=== PATIENT | male | born 1955 | race Caucasian/White ===

== ENCOUNTER 2023-04-19 10:07 | Outpatient (OUT) | payer MEDICARE, SELFPAY ==
[2023-04-19 10:33] LABS: Basophils Absolute Auto 0.1 10^3/uL (0.0-0.1); Basophils Percent Auto 0.7 % (0.2-2.0); Eosinophils Absolute Auto 0.2 10^3/uL (0.0-0.7); Eosinophils Percent Auto 3.2 % (0.9-7.0); Hematocrit 45.7 % (42.0-54.0); Hemoglobin 14.9 g/dL (14.0-18.0); Immature Granulocytes Abs Auto 0.03 10^3/uL (0.00-0.03); Immature Granulocytes Pct Auto 0.4 % (0.0-0.5); Lymphocytes Absolute Auto 1.4 10^3/uL (1.2-3.8); Lymphocytes Percent Auto 18.9 % (20.5-60.0); Mean Corpuscular HGB Conc 32.6 g/dL (29.9-35.2); Mean Platelet Volume 11.8 fL (9.5-13.5); Monocytes Percent Auto 12.9 % (1.7-12.0); Neutrophils Absolute Auto 4.8 10^3/uL (1.4-6.5); Neutrophils Percent Auto 63.9 % (43.0-75.0); Platelet Count 220 10^3/uL (150-450); Red Blood Count 4.81 10^6/uL (4.70-6.10); Red Cell Distribution Width 12.7 % (11.0-15.0); White Blood Count 7.5 10^3/uL (4.0-11.0)
[2023-04-19 12:34] LABS: Alanine Aminotransferase 66 U/L (16-63); Albumin Level 3.7 g/dL (3.4-5.0); Alkaline Phosphatase 65 U/L (46-116); Anion Gap 10.9; Aspartate Amino Transferase 44 U/L (15-37); BUN Creatinine Ratio 15.2; Bilirubin Total 0.5 mg/dL (0.2-1.0); Calcium 8.8 mg/dL (8.5-10.1); Carbon Dioxide 28.3 mmol/L (21.0-32.0); Chloride 100 mmol/L (98-107); Chol HDL Ratio 2.3; Cholesterol 199 mg/dL (<=200); Estimated GFR (African America >60 (>=60); Estimated GFR (Non-African Ame 57 (>=60); Globulin 3.6 g/dL; Glucose 96 mg/dL (74-106); HDL Cholesterol 86 mg/dL (40-60); Potassium 5.2 mmol/L (3.5-5.1); Sodium 134 mmol/L (136-145); Thyroid Stimulating Hormone 1.227 uIU/mL (0.358-3.740); Total Protein 7.3 g/dL (6.4-8.2); Triglycerides 58 mg/dL (<=150); VLDL CHOLESTEROL 11.6 mg/dL
[2023-04-19 12:35] LABS: Prostate Specific Antigen Scrn 2.73 ng/mL (<=4.00)
== END 2023-04-19 10:08 | disposition home or self-care (01) ==
LOC: LAB 10:15
PROVIDERS: PCP Family Medicine; Visit Provider Family Medicine
DX: I10 Essential (primary) hypertension (principal); Z12.5 Encounter for screening for malignant neoplasm of prostate; R53.83 Other fatigue
CPT/HCPCS: 36415; 80053; 80061; 84443; 85025; G0103

== ENCOUNTER 2023-04-23 08:33 | Outpatient (OUT) | payer MEDICARE, SELFPAY ==
--- NOTE | 2023-04-23 08:37 | CT_ITS ---
[address] [address] Patient Name: ROSALIO JARQUIN MRN: [id number] date: 1955 Sex: M Assigned Patient Location: CT Current Patient Location: Accession/Order Number: [id number] Exam Date: 04/23/2023 08:42 Report Date: 04/24/2023 09:51 At the request of: ELAINE MEJIA Procedure: CT lung screening low-dose EXAMINATION: CT lung screening low-dose HISTORY: Nicotine Dependence F17.210 COMPARISON: No relevant comparison available. TECHNIQUE: Axial, Coronal, and Sagittal images were created without the administration of IV contrast material. Dose reduction techniques were achieved by using automated exposure control and/or adjustment of mA and/or kV according to patient size and/or use of iterative reconstruction technique. FINDINGS: LUNGS: A few calcified granulomas. No suspicious nodules or acute infiltrates. PLEURA: No mass, effusion, or pneumothorax. VASCULATURE: No abnormality. MARINA: Calcified lymph nodes compatible with chronic granulomatous disease MEDIASTINUM: No mass or pathologic adenopathy. CARDIAC: No enlargement, pericardial thickening, or significant calcification. AORTA: No aneurysm or dissection. CHEST WALL: No mass or axillary adenopathy BONES: No bone lesion or fracture. LIMITED ABDOMEN: No suspicious findings. Limited images of the upper abdomen. OTHER: Negative. CT/CT lung screening low-dose IMPRESSION: 1. Lung-RADS Category 1 Negative. No nodules and definitely benign nodules. Continue annual screening with LDCT in 12 months. Electronically authenticated by: SIMRAN MATIAS Date: 04/24/2023 09:51
== END 2023-04-23 08:34 | disposition home or self-care (01) ==
LOC: CT 08:33
PROVIDERS: PCP Family Medicine; Visit Provider Family Medicine
DX: F17.210 Nicotine dependence, cigarettes, uncomplicated (principal)
CPT/HCPCS: 71271

== ENCOUNTER 2023-05-28 13:48 | Emergency (ER) | payer MEDICARE, SELFPAY ==
[2023-05-28 13:53] VITALS: BP 148/70; PULSE 60; RESP 16; TEMP 36.6; O2SAT 98; BMI 24.4
--- NOTE | 2023-05-28 13:59 | CT_ITS ---
The [address] [address] Patient Name: ROSALIO JARQUIN MRN: [id number] date: 1955 Sex: M Assigned Patient Location: ER Current Patient Location: ER Accession/Order Number: [id number] Exam Date: 05/28/2023 14:09 Report Date: 05/28/2023 14:27 At the request of: CHASIDY ZAZUETA Procedure: CT head/brain wo con EXAMINATION: CT head/brain wo con 05/28/2023 2:09 PM EST HISTORY: Fall, head injury COMPARISON: None. TECHNIQUE: Using multidetector thin collimation helical acquisition technique, axial, coronal and sagittal CT images from the skull base to the vertex were obtained without intravenous contrast. Dose reduction techniques were achieved by using automated exposure control and/or adjustment of mA and/or kV according to patient size and/or use of iterative reconstruction technique. FINDINGS: No intracranial hemorrhage, mass effect, or midline shift. The ventricles are proportionate to the cerebral sulci. The mansfield to white matter differentiation of the cerebral hemispheres is preserved. The basal cisterns are patent. The visualized paranasal sinuses are clear. The mastoid air cells are clear. CT/CT head/brain wo con IMPRESSION: No acute intracranial pathology. Electronically authenticated by: FER MARIE Date: 05/28/2023 14:27
--- NOTE | 2023-05-28 13:59 | CT_ITS ---
The [address] [address] Patient Name: ROSALIO JARQUIN MRN: [id number] date: 1955 Sex: M Assigned Patient Location: ER Current Patient Location: Accession/Order Number: [id number] Exam Date: 05/28/2023 14:09 Report Date: 05/28/2023 16:02 At the request of: CHASIDY ZAZUETA Procedure: CT cervical spine wo con CT CERVICAL SPINE WITHOUT CONTRAST, 05/28/2023. HISTORY: Fall. Neck injury. COMPARISON: None. TECHNIQUE: Noncontrast axial CT images obtained through the cervical spine. Reconstructions were obtained in the sagittal and coronal planes. Dose reduction techniques were achieved by using automated exposure control and/or adjustment of mA and/or kV according to patient size and/or use of iterative reconstruction technique. FINDINGS: Alignment normal. Odontoid process is intact. Facet joints are intact. Vertebral body heights are normal. No acute cervical spine fracture. Severe multilevel degenerative disc disease. No paraspinal soft tissue swelling. CT/CT cervical spine wo con IMPRESSION: No acute cervical spine fracture or traumatic subluxation. Electronically authenticated by: GISSEL MELVIN Date: 05/28/2023 16:02
--- NOTE | 2023-05-28 15:07 | ED.HEATRA1 ---
HPI - Head Injury General Chief complaint: Head Injury Stated complaint: HEAD INJURY Time Seen by Provider: 05/28/23 13:58 Source: patient and family Mode of arrival: walk-in Limitations: no limitations History of Present Illness HPI Narrative: Patient is a very pleasant 68-year-old male who presents to the emergency department with his for the evaluation of a head injury with laceration. Patient states he slipped on ice on his patio and fell backward hitting the back of his head on the ground. He had no loss of consciousness, he reports some stiffness to the sides of the neck but has no posterior cervical or thoracic pain. He is ambulatory, no extremity injuries. His tetanus is up-to-date. Bleeding has been well-controlled. He is on no blood thinners. He denies visual changes, peripheral paresthesias, vomiting. Related Data Previous Rx's Medication Instructions Recorded methocarbamol 750 mg tablet 750 mg PO TID PRN pain #20 tabs 05/28/23 Allergies Allergy/AdvReac Type Severity Reaction Status Date / Time Unable to Assess Allergy Verified 05/28/23 13:57 Review of Systems ROS Constitutional Denies: fever or chills Ears, nose, mouth, and throat Denies: throat pain Cardiovascular Denies: chest pain Respiratory Denies: shortness of breath or cough Gastrointestinal Denies: nausea or vomiting Musculoskeletal Reports: neck pain; Denies: back pain Integumentary/Breast Denies: rash Neurological Denies: headache or numbness in extremities Hematologic/Lymphatic Denies: easy bruising or easy bleeding PFSH PFSH Social History Smoking status: Never smoker Exam Narrative Exam Narrative: Gen.: Awake, alert, in no distress Head: Normocephalic, 5 cm laceration to the back of the scalp, subcutaneous tissue exposed although the laceration is well aligned, there is no muscle or bony exposure. No active bleeding. No hematomas. No Jimenez sign or raccoon eyes ENT: Moist mucous membranes; no dental injury; no bony point tenderness of the posterior cervical spine Respiratory: No respiratory distress Extremities: Moves extremities equally, no injuries noted Psych: Normal mood and affect Neuro: No focal neuro deficit Skin: Warm, dry Constitutional Vital Signs, click to edit/add: Last Vital Signs Temp 97.9 F 05/28/23 13:53 Pulse 60 05/28/23 13:53 Resp 16 05/28/23 13:53 BP 148/70 H 05/28/23 13:53 Pulse Ox 98 05/28/23 13:53 O2 Del Method Room Air 05/28/23 13:53 Course Vital Signs Vital signs: Vital Signs Temperature 97.9 F 05/28/23 13:53 Pulse Rate 60 05/28/23 13:53 Respiratory Rate 16 05/28/23 13:53 Blood Pressure 148/70 H 05/28/23 13:53 Pulse Oximetry 98 05/28/23 13:53 Oxygen Delivery Method Room Air 05/28/23 13:53 Temperature 97.9 F 05/28/23 13:53 Pulse Rate 60 05/28/23 13:53 Respiratory Rate 16 05/28/23 13:53 Blood Pressure 148/70 H 05/28/23 13:53 Pulse Oximetry 98 05/28/23 13:53 Oxygen Delivery Method Room Air 05/28/23 13:53 MDM - Head Injury MDM Narrative Medical decision making narrative: CTs of the head and C-spine are unremarkable, laceration repaired without difficulty. Robaxin given for neck stiffness for home, he appears well-hydrated and nontoxic with a normal neuro exam. Follow-up with primary care provider and return to the emergency department if symptoms change or worsen. The laceration was anesthetized with topical LET and 7 michelle were placed with excellent alignment of the laceration. No active bleeding, patient tolerated this well. Dressed with bacitracin. Patient encouraged to follow-up with primary care in 10 to 12 days for staple removal. Wound care discussed at bedside. Medical Records Attestation: I reviewed the patient's medical records. Imaging Data CT scan - head: Attestation: I have reviewed the pertinent imaging results. CT cervical: Attestation: I have reviewed the pertinent imaging results. Discharge Plan Discharge Chief Complaint: Head Injury Clinical Impression: Closed head injury, Cervical sprain, Laceration of scalp Patient Disposition: Home, Self-Care Time of Disposition Decision: 15:08 Condition: Good Prescriptions / Home Meds: New methocarbamol 750 mg tablet 750 mg PO TID PRN (Reason: pain) Qty: 20 0RF Instructions: Head Injury (ED), Staple Care (ED), Head Laceration (ED) Additional Instructions: Michelle removed in 10-12 days with your doctor Stand Alone Forms: Portal Instructions Referrals: Adriana Downs MD [Primary Care Provider] - 1 week
== END 2023-05-28 15:30 | disposition home or self-care (01) ==
PROVIDERS: Emergency Provider Emergency Medicine; PCP Family Medicine
DX: S01.01XA Laceration without foreign body of scalp, initial encounter (principal); S09.8XXA Other specified injuries of head, initial encounter; S13.9XXA Sprain of joints and ligaments of unspecified parts of neck, initial encounter; W00.0XXA Fall on same level due to ice and snow, initial encounter
CPT/HCPCS: 12002; 70450; 72125; 99284

== ENCOUNTER 2023-09-19 09:58 | Outpatient (OUT) | payer MEDICARE, SELFPAY ==
--- OUTSIDE RECORDS SUMMARY | 2023-09-19 10:12 | XMS_ITS | CCD ---
Author Organization [facility] Care Team Providers Care [employer] Name Role Phone Adriana Mejia Primary Care Provider TOMI ESTRELLA Attending Unavailable ADRIANA MEJIA Primary Care Unavailable ADRIANA MEJIA Primary Care Physician Esther Padilla Unavailable Unavailable CYNTHIA, DR LENA Campbell Attending Unavailable CYNTHIA, DR LENA Campbell Consulting Unavailable MEJIA, DR ADRIANA Hammond Primary Care Unavailable CYNTHIA, DR LENA Campbell Admitting Unavailable JACKIE, DR ADRIANA Hammond Attending Unavailable JACKIE, DR ADRIANA Hammond Primary Care Unavailable JACKIE, DR ADRIANA Hammond Admitting Unavailable POLLY, DR SIMRAN Campbell Consulting Unavailable MEJIA, DR ADRIANA Hammond Consulting Unavailable Adriana Mejia Unavailable Allergies Allergy Classification Reported Allergen(s) Allergy Type Date of Onset Reaction(s) Facility (3 sources) patient allergy list reviewed by nurse or physicia Propensity to adverse reactions 9 Comment:Done nexTune Other (3 sources) Allergies Reconciled Propensity to adverse reactions Unknown nexTune Other Medications Current Medications Medication Drug Class(es) Dates Sig (Normalized) Sig (Original) acetaminophen 325 mg oral tablet (2 sources) Start: 08-01-2020 take 2 tablets by mouth every six hours as needed for pain acetaminophen (TYLENOL) 325 MG tablet Take 2 tablets by mouth every 6 hours as needed for Pain 120 tablet 0 08/01/2020 Active Start: 08-01-2020 acetaminophen (TYLENOL) tablet 1,000 mg acetaminophen 325 mg / HYDROcodone bitartrate 5 mg oral tablet (3 sources) Opioid Agonist Start: 11-03-2018 Trinidad 325 mg-5 mg oral tablet 1 tab(s), Oral, q4hr for pain, 12 tab(s), Refill(s) 0 Start Date: 11/03/18 Status: Ordered ciprofloxacin 3 mg/ml / dexamethasone 1 mg/ml otic suspension (1 source) Corticosteroid, Quinolone Antimicrobial Start: 01-06-2022 End: 01-13-2022 ciprofloxacin-dexa methasone 0.3%-0.1% Otic Susp 4 drop(s), Ear-Right, BID for 7 day(s), 10 mL, Refill(s) 0 Start Date: 01/06/22 Stop Date: 01/13/22 Status: Ordered escitalopram 10 mg oral tablet (3 sources) Serotonin Reuptake Inhibitor take 1 tablet by mouth once daily Escitalopram Oxalate 10 MG TAKE 1 TABLET BY MOUTH DAILY for 90 Active ibuprofen 600 mg oral tablet (1 source) Nonsteroidal Anti-inflammatory Drug Start: 08-01-2020 take 1 tablet by mouth every six hours as needed for pain ibuprofen (IBU) 600 MG tablet Take 1 tablet by mouth every 6 hours as needed for Pain 120 tablet 0 08/01/2020 Active Start: 08-01-2020 take 1 tablet by musa th every six hours as needed for pain ibuprofen (IBU) 600 MG tablet Take 1 tablet by mouth every 6 hours as needed for Pain 120 tablet 0 08/01/2020 Active lamoTRIgine 25 mg oral tablet (3 sources) Mood Stabilizer, Anti-epileptic Agent Start: 01-25-2022 take 1 tablet by mouth at bedtime lamoTRIgine 25MG lamoTRIgine 25MG, 1 (one) Tablet at bedtime # 90, 01/25/2022, Ref. x1. Active Oral at bedtime for 0 *Pick strength-form from [employer] for eRX* Dec, Active take 1 tablet by mouth at bedtim e lamoTRIgine 25 MG TAKE 1 TABLET BY MOUTH AT BEDTIME for 90 Active loratadine 10 mg oral tablet (3 sources) Start: 10-31-2020 take 1 tablet by mouth once daily Loratadine 10MG Loratadine 10MG, 1 (one) Tablet daily # 30, 10/31/2020, Ref. x2. Active Oral daily for 30 *Pick strength-form from [employer] for eRX* October, Active losartan potassium 50 mg oral tablet (3 sources) Angiotensin 2 Receptor Brandi take 1 tablet by mouth every twenty-four hours Losartan Potassium 50 MG 1 tablet Orally Once a day for 90 days Active meloxicam 15 mg oral tablet (3 sources) Nonsteroidal Anti-inflammatory Drug Start: 12-13-2021 take 1 tablet by mouth once daily Meloxicam 15 MG Meloxicam 15MG, 1 (one) Tablet daily # 90, 12/13/2021, Ref. x2. Active Oral daily for 0 15 Nov, 2021 Active Problems Active Problems Problem Classification Problem Date Documented Date Episodic/Chronic Essential hypertension (4 sources) Essential hypertension; Translations: [Essential (primary) hypertension] Chronic Malaise and fatigue (1 source) Other fatigue Episodic Miscellaneous mental health disorders (3 sources) Transient insomnia; Translations: [Adjustment insomnia] Episodic Osteoarthritis (3 sources) Degenerative joint disease involving multiple joints; Translations: [Polyosteoarthritis, unspecified] Chronic Other aftercare (1 source) Encounter for removal of sutures Episodic Other ear and sense organ disorders (1 source) Otitis externa; Translations: [Unspecified otitis externa, unspecified ear] Onset: 01-06-2022 Chronic Other injuries and conditions due to external causes (1 source) Closed injury of head; Translations: [Closed head injury, initial encounter] Episodic Other injuries and conditions due to external causes (4 sources) Foreign body in right ear, initial encounter; Translations: [FOREIGN BODY RT EAR INITIAL ENCNTR] Onset: 01-06-2022 Episodic Other screening for suspected conditions (not mental disorders or infectious disease) (1 source) Encounter for screening for malignant neoplasm of prostate Episodic Residual codes; unclassified (4 sources) Obstructive sleep apnea syndrome; Translations: [Obstructive sleep apnea (adult) (pediatric)] Onset: 10-09-2021 Chronic Substance-related disorders (11 sources) Smoker; Translations: [Nicotine dependence, cigarettes, uncomplicated] Onset: 01-13-2022 11-03-2018 Chronic Comment on above: Added secondary to d ocumentation in Social History. Past or Other Problems Problem Classification Problem Date Documented Da te Episodic/Chronic Mood disorders (3 sources) Mood disorders; Translations: [Depression, controlled] Results Test Name Value Interpretation Reference Range Facility CT LUNG CANCER SCREENINGon 0 01-14-2022 CT LUNG CANCER SCREENING EXAMINATION: CT LUNG CANCER SCREENING HISTORY: Tobacco dependence caused by cigarettes COMPARISON: CT lung cancer screening 11/15/2020, 02/03/2019 TECHNIQUE: Axial, Coronal, and Sagittal images were created without the administration of IV contrast material. Dose reduction techniques were achieved by using automated exposure control and/or adjustment of mA and/or kV according to patient size and/or use of iterative reconstruction technique. FINDINGS: LUNGS: Stable appearance of a few tiny punctate nodules scattered within the lungs. No new or suspicious nodules. No acute infiltrates. PLEURA: No mass, effusion, or pneumothorax. VASCULATURE: No abnormality. MARINA: A few small calcified lymph nodes consistent with chronic granulomatous disease. MEDIASTINUM: No mass or pathologic adenopathy. CARDIAC: No enlargement, pericardial thickening, or significant calcification. AORTA: No aneurysm or dissection. CHEST WALL: No mass or axillary adenopathy BONES: No bone lesion or fracture. LIMITED ABDOMEN: No suspicious findings. Limited images of the upper abdomen. OTHER: Negative. IMPRESSION: 1. LUNG SCREENING: Lung-RADS Category 2- Benign Appearance or Behavior. Nodules with a very low likelihood of becoming a clinically active cancer due to size or lack of growth. 2. Continue annual screening with LDCT in 12 months. Electronically authenticated by: SIMRAN MATIAS Date: 2022-01-14 09:21 Normal [facility] Coding Summary.on 01-12-2022 Coding Summary. CD:[id number] G h0bWw+PGhlYWQ+ZT5BUCW yK54liSOpqS5XQ6hHVI4J ADWIQDULLN3DWZ1krAQ1M UakR1AopqZn UemxkQFwNO28DTp6IYZ8s TjgNUjqyT6trQXwE1w2If RgXO71lD30GTorCBEqZiD 3LjZpbjsgbWFy X1jgShDkrNPhVze+PHRhY mxlIHdpZHRoPScxMDAlJy TzdRpxXT0vZt0vBOKnRAC vbGxhcHNlOiBj a4lkZPXsIWapDI0ycNqaO 8LzeOA8YAWxg7f5Ef76oG I+PXAnSXQ6cGlrGGumg13 9SuEoh1dcQBE6 eBJgKTqbUXR9B95iw5E0C UXcSXCmVYN5wVE5cW5zbD pxbkrwN4OupPVuFiC1JJT 6sHXhcJ0uzWjo qmejvO5dMbe+L38PXA5EG WJNXK3HWai5L8AhXlpqtJ I+ES65GCIbCC26tFNgmBS de8vzeDz6DyRg MGZiSPC5kJpcOXyys6FxN KImE34pzSIow1P5CIBynD tacQXaWjDcwHR2rE4cVOj jwkldn4mvvzbd Ouvmb5xbim40lW40O96kR GufXQOoXBN6BWYcHJIvlE krlo6mvR4lYt2+KLhpv9e lf7volPs6GkQt MNXlouNdvDkvVFG3h5PnK o13D1RcmWjlb5NfAqa2eq 73jMSru9X8cDQ2WVkzHAR oyU7dIClfFkK9 DXIbHqPdlK82vCBeIGsdW z1hkXydrRuqTO2lXJCtsw bfRWZdnP0bPARfpAIjnBh mWV3lUINrqhct c613LiYcLRB0ADUpnXJoT 0KfdS1mXoTjWWKjKDUdV8 WnhJBaLKiwH381OTbgGfA 6KARyxqUvE1Nz EHXauSjoXmF9d3J2Hm3Hb 4LnqsdvLKW2EHfgHRW1Op E7IfYrGqS9L4FrZlw1CND bdJxoMS3dG4Cb BTCvqjojlbhrvRM2BIDsX AAyyB98cSDzJTebAk9lw8 U4t002QDXxWVCxhT97Pg7 udDogMTBwdCBU cG5ntpbey6thhcfqAwVcS ZWfAQw5VPb9KUMcoNfrMg WtALY1FiX8BRP8iLAbhL4 bgNkjoyhoqU1v Oyc+M88wxZ9rEQR3EIC6n ymqOXLnvsDyCL93AU41J4 RyPjwvdGFibGU+PGRpdiB rwAgqKJ5iFkWy n3ypc3UrOEfyG6CuCIBbM PfhDuv5JKIzQEE0dLV7fD 7dSAKoXIbvc5G9wLA4D4Q ukfEadm7yh8cf OUQcEJhrJ20uwILlc7D9K PHbxLB4QARsdRjhNfBpdX 93Oyc+XSKznXyih1XfZxn ed2lwg1iqrPr8 MtKmQOGcmpAnfMfyRIA7i 0NjBg96J84hHEtiTINqOB GkBENrODOuuApoax7zdU7 wIi8+PGNvbCB3 vMT8bN5zUYYjCfK5EZpaC 461QzDjmPFmEeyem6zuw5 wjrIm2KyNgJPAnebBgyAf oOWG3q0FzCe02 O79gGUkwLUPrBPIfGEPuR VLkwKrcya6pnD4rJe4+PC 0yr4xmwj68qT75wUE+PHR oKLQ4iSymUKkw JHYkkO4yFGebZhX0PNPoJ vHesX92dSJzVUlwUs8czU lroPkgIA9dPLIaugoig33 1TqUon5oxZPYc kKNaKCwdBWV9T27xu7N0P VVwDSZqIBA8jJH4sX2oqL lnbjogbGVmdDsgdmVydGl mSEduSErnH882 IHRvcDsnPlBhdGllbnQgT cItVAe2J8HoOqx0UNClaP moRH8tfOXwVQpkYa4ynOs mhCqgFK7zJRQy xpfoi961RaIly2tqOBKpw IQjXCllXOG0X69ig2H6MB TaANCdPXQ6wDV6pK4woUi nbjogbGVmdDsg bcWliZpmLCfxRCdnV371S HRvcDsnPkJpcnRoIERhdG S7JZ82ND06gUQma3Q1wQS 3E6YuZJWmivrp begkiBQ5ACAwKLXxjL35C w6sxRjlPx0hUDZiOXZ1MO CxvLXxB4QmeB2pNmGqWSA lPEUzV5BggJPo JQunG018MXlcWcE0XPEtr iZpY9AmOLWidXsyDoX7s7 A2Mx0XX9T4KX19RA54lZB nz1A2sYR6O9Qb QHKffwrqsmrokIH2ONQwP XPxsT60Hf8tzBzxIv8bFA DiIER2KQRysJUuX5OcqW7 yOiAjMDAwMDAw P1BqbDFhCJdiB622KYakB yG5XUJsnxYbJ3RhNACywU laMgN0p4S2Xo7XEGy1GX3 6HJ51wIKoe1P7 lPB5F7FuSZSazrcztwrpj NH7WNRwRGKfsS13Gh9vzK tzXp1lHCHfLMN9NSZwyWD rR0SxmG5sBkPa CTRqPUKxE0PhbWMfFFpxZ 500UVqaIiU8SGVcjhBaY6 VeJQCnzHbyYyY0n5Q8Yy8 URMNuWE69XEF9 tFV7JW09RG94G3JhKwvcz GFibGU+PHRhYmxlIHdpZH RoPScxMDAlJyBzdHlsZT0 tFn4wOBQcQSTx qLrkoAIrRzOlm2muIZKqV CkpNQ1piHeuE9BzhQY4NR Vem1j2Oy49L69bX8AwiRO +YEVvsWK4gLD6 dI1gLlJqYzM3LWsjE815E iAloJQtPoczq1bao8qnqM e9ZxN9WVTzqqNguGlrLAZ 0s1LvUz55V27u IHdpZHRoPSIxNSUiIHZhb Airbw2tyF7gYm1+PGNvbC M0uIH1qX5dPtTwCvH8LDr bN361MxNcoTFz Pbpqz5epj1oifDm3UdPnN ALtffIvjYgtGDF0z8XjEp 55L7TmtHlda1FbDsx6sw6 8bQFaf8W1zPA0 J5YxJJRjgfvowVZkhEybJ S1pMJWuzjvgQWJmiX0pTP ByK8l2LgBdTbQ7KVbtI0A qcjL2HUSyoXEd QThyVXS3G40xs0Y6IFBnE IAuQEJ8pFT1gL4luUwkix ogbGVmdDsgdmVydGljYWw gTThbD903ZVAf sPbcOFWqeI7xJRFirZObn QhcQH2jMKIbdvmbMbVOWh TVAkSLRMCPE0yXUnKOVG5 1YH99pNRsp1Y7 nTD0X8XtDQOellpptszii YG9GIOzZEPuhN40mKToWH ugTc5bs9F2g756IRDpJUZ edV63Hp5wlZvr DVLhaLWZwF7ptjibl9cnl exhKtHvMJQoERn3UEv8UT BtqCjbZyKeHYD2PwO9VRZ 3dRIfyY3edJvw labmqL3vVli+MDkvMDMvM Yc4YpvblAJ+LJAtSOM4uF usKKbkKYRulB6zRCLxM9v 7BcXkYoF8CThl H9IuLJCmmfffAs05qI8jV lZsCnX8BJxiQ4RmfsK8VE OsrBYiFKpuZWH7M22js4E 5PRXoXMOcKCR6 vGU8pT2kqYtgabqhsKVpg DsgdmVydGljYWwtYWxpZ2 30YUUosVdbHiK1CRvrUZH zND30YU70sZVz r2V4dLK1N7KfNWNdbtzxv cvolSG4EJGuSIYauW04vN JeCDgqLg1cq8P5h696VED gRZPaxU63Ci6g bFluKOSxoRZOrR6xhopie 9ikaziuIpEfJXDbOOk6AA t8SOLpqJcdCxPxONB5DyB 3FML8tSEzxZ9d hGagiljpbE7hEhe+TWFsZ TwvdGQ+JYJhOTT3qIniEN vkUNXzsD8aXPJvH8e1IxS kIhR1THikN9Ox BAEyksebJz17cL9rBaKyX xQ0FZgqC2UhjoA5IFCswS ZiMZfvCRZ7Y96cd8I9DRR fNVQsEDK6uYI8 kA8ysDgmvybqnZEmzWwki sWijHzqSNwzPLhpM764NU HokAvwFq34iMEofZxzmcI 0Y1IwZcpqgSX+ EA24ILLcQK02yHGgdHNov 7tqoAf9JcDeYSNzNKM6jW rrSEqys7VhLPYdK18iaQS zb7J0NCRzoKck qMQeTsDioLE0uV5cMGzfj bmrd1wucpjaNrixz7baqx 27uI31G05lNEhnNXJhBCA zMCUiIHZhbGln zh9siR5nCf8+VFMgeEO7c RY0hG2nKqYaBzB1GWosY1 66RmItyKVsYlgpj4oub9c lwCf7RdXzKAXy utOxeClzCDB8n4YtEp35W 29sIHdpZHRoPSIyMCUiIH AecJttvw2miM6gDd6+PC9 ao6kdfc30uJ50 dHI+APKqTVW4sRvoXHxdD ZPdhW5vVUbkKpL7WPAfJq FueG26fHLfWGzuAb3xnZi vxHmcDD6eUBAn hxjqa298NzCxs4ynRKTcq TNsDDtnJGS2B35yn0B0WC HcTNJjWOA7rBQ1iC1rwYy nbjogbGVmdDsg qyIfgUkeVPkdHSzwL008I SKjrDjjKjPdmAJaP2vbdg LSNB1xUispeGG+PHRkIHN 0eWxlPSdwYWRk rM4dUUXqM0m9TtLdWaE0F PztW0YjjdV9FAAzaZPmJY QajHBKcX8mndibg2hftza gIzAwMDAwMDt0 MKg6GKKqgLvnOiGcYUO7B fY2GXW9nLLguU4brYpzrf tgwN8dTwr+RklOOjwvdGQ +JMVlCTZ3hQkf BAptSPUreG4dKCFwL9i9F nEyKoK2MOxjN4JgucD3RJ UeiRWaDZBibEXJlN0unqv vk9dpndxsLlUr FSTvKGm2ETy6XEBuyJcwD sJlUXO6SkW1LEA6nEMnrL 6rnOsyohudjH6vYmk+TVJ OOjwvdGQ+PHRk CUZ1gDbfJZomBDHcoJ1uC UInJ4h6FxGyYtW6ECwuX9 XddsY7DDGsdUBvYKNopZT KbZ9cwtcnp2nx zcupKxZzKQNdYVc0RDx3J VLkcEfkOuRlNFO6UzT0GE O4gVDkwB7xmOqnrvshnL4 wOyc+CHW3REO5 WD76UX08I8FtLoebyOUzn +PHRhYmxlIHdpZHRoPS ohPPLtDaGkxJttKD1oTk2 yZGVyLWNvbGxh cHNl (more content not included)... Normal [facility] Coding Summary. CD:[id number] G h0bWw+PGhlYWQ+RG5RAQZ xH27kgWQhfG2LX5bXLE1X SJNZYNTAOR1NKL4uoKK3I YyvY3RboyQc BlstfMJoSE88PNg7JFK8d ZizNWcgeV8nfYQbE2l4Lw PhRN47kP15KCgtIJJeQjP 3LjZpbjsgbWFy I9uzOiHfjBQzBvd+PHRhY mxlIHdpZHRoPScxMDAlJy GjcNntKG3xXm9eZWUgWIF vbGxhcHNlOiBj m5exEHAmHLqnNY5cqTeuX 4PvmKG3DVEcx2l5Ke57hX I+RUCyPPV9kFryQVapw83 9BcGip2rxSOC2 aHJtJChwTGE7T91wz5J5W LPvJQIeUNB6zAL3kI2izM jftxqaH7VkoKQfOkB0UAS 4kNFqvN4vaRnl cwisaA9lByg+C36TXC9GR QFTJQ1HYew1P9UdEtljgR I+LS08WZVhDS08xBUeqPK fk0qzwVh7XpYw CZGhZVD6sIuiOKtfq3BqF MPaJ23ohYRxq0C8LODqiK jbhRUiLgRrmEU7aL5pRPk cpbdjh6izxzly Wbzlm8vatw82vZ36V75xM KfgJJWsOVP7OTEuSQBrbI jtgr7ojA0dLq7+AWhxb6e hl5nmiIr4VyYe WVBxmzMxaWhpHID3k0BcQ l22V6PztEvil9KlBab3dk 59gMVzl6H9xMU8FJcmGQM ugF4wYHowDzX7 LSHrPaTbiT25dSNjIXhmK b7boZzucExjSG0jXVEuoj usBQPcvL7gBXRksQOwbLj bUH3dEOIxvbyf b530CiWnBVF7ZWNeqXWjI 3VhpW0mYyOzREZmUURdO0 SxyEEoKRkzF201KEthQpJ 6RRHxxqJlK7Vk JFVymJyfOrJ2g9L0Kz8Ly 3WwpmtlFBP8BRqdGBJ1Jl B1XgDaRfF7F5NyNwr2ZJG cxShkUM1sU1Dy XYJpdeetqsggyVL2NZAbK JZmtT30zPZmMAesGw4qz4 U0p339DVYoOMQwfW11Mw5 udDogMTBwdCBU rP6bhzaez2czzzdcVlYcD JKrXCg0VYu9SHVpxRjbKs OqDOS4XuO2ZPT7aUUtkN8 fmFjgdggylT3w Oyc+P56gfP2aWGM6XEC9i bebCSQfdqOaQP19UZ16N1 RyPjwvdGFibGU+PGRpdiB cgRjnZK9mRoNm i1bqz0PoXNyzX5HhDEGpR MtfIir0WDMbQPV3mTI1uJ 3cERQkAHpat2Y4oGT6I8P zgbVcjn1eg5jk YLLsCNkmT12ikRAic8W0F XIwbXR6ULZooStePtWjvL 93Oyc+YNZfqXuzb3UbBkb ye9tjr2jwhUl5 PuYbGJOtntImiFcuXOL2x 5UpMg47M56oWIoxNCPiNK RrUGXtNCEfeOdzkx6ggI2 wIi8+PGNvbCB3 kLT1lK5wIRKfIwS3KBoaE 022BmSsoSGxDezdq8zlm2 qxgDv5DoMfNVQaesHonBa yKZZ0f8GjNy33 C75oSYisSZFhPCNhDIUiT JMroRkwoh3agN6cFu7+PC 7wu4mums00uK76nQJ+PHR cBON6kDlbUVwo AKHhnT5cSRxeKeO7FKWeK qZkpB47hNTsNVioSt7sjN shyYwhMU8qSLGtwhxsi12 5XxGsv4hxLLRu aCYmPZptCRF6Q75sy6P2A UWnCBKrAGW9sBX4wO1veT lnbjogbGVmdDsgdmVydGl sYJhrBRsvO239 IHRvcDsnPlBhdGllbnQgT zNiDDy6G1NhPqe8RAVgdR hfML9kdGJgMVahSc7fcRe ksIiyTB7dGEBn pubng736PoMdj8hvZCEbj GDlGTbtWDC8T63mu0B8XI VsWSKiIAZ5nZE9iS6mlXa nbjogbGVmdDsg hvOxbYxzMKehLVffT944S HRvcDsnPkJpcnRoIERhdG F2TT56YK76cKXwt2V4hWU 0E9MgYXJhgkje outrrJX6VDIvBHYfcD61T c7eoOteIv4kYUVfSBE0ZD RymZRmR6DepG3kZuDhAXE lNFSlE8HahGMo TPfbC827JGulDhE2TNDmx xPrL0CwHGAnhFviOxZ0c4 U6Yu3GV7C9GH80TA34yAF qy6L0hPQ7U7Kl LAGxpkkpfmjmhLS4XTIzI BRroA16De8sbDmlMe9sQV WxNCX9IJEmlKCeB6VujF2 yOiAjMDAwMDAw A4VtmREnQEhvG397LMxlY uE0GYIshyDrN5OxCQMfxJ fvCrI2s4X0Qk2BAXf0HG9 3NB26aGHjf7M8 sQS5J5IfDLYmcxqiveojq UJ8VJByCTZlrW30Aa6mtQ ycVh5fDXAjGYF1XEUffCR jD2CzyQ6mOrBl NXCqVBGkL3RwiDTaBPqyA 171CKkaMkR5MJEdtsFwO8 IbMSJjhQylGbN8m6P7Mx6 NGMSfHJ28BKY4 uWN7JO48BH53I2JmMohhu GFibGU+PHRhYmxlIHdpZH RoPScxMDAlJyBzdHlsZT0 cBt3bBIJfBNRh kXpywPXlGyKsj8tbLZZzS MqkSR4meEyjP6IsfSJ9CP Gys2v0Pn36N40nZ6IpkHS +EYGcqMK4iKN7 fH4cRnAkSfN1UXddD100I lBhzUBoSrnfn5zja6mnnI z8VtS1AZFlrpTayVlbXBF 7t9UbJb45V89g IHdpZHRoPSIxNSUiIHZhb Hdsck1yoB0bNt9+PGNvbC H6eDY6gP3wOgXxToV3WCh nD544KgFnpVDu Umibq7pdz2rtsFm5ZiSsP TLqlwUujCegJRN0k4AsXp 06I1EjyEvlw4XqOnl2it0 6yUHru3H9kEM1 D2CfZSPxvwkkdDLjlWtuX M2jESXcfbsdKPHbfF2wVP QoG7u5ZmKpUkV0LExbE8W czfK6WJAmtLXk TDajBWH3A12io7I6GSLqJ WHcPCW5oPG9oF6gyZatpc ogbGVmdDsgdmVydGljYWw rBUevP331VACt cXutCZSiyO0hHDLomEWod SkrYU2tXWQhztdfReVCUj YDHoZVFULUM0eOXnDOII7 3WV60nQKlo9O8 uCJ6L9AeVSDbypouoldrm GC0ANHsIVKcaG65cVLhNT otZz1hn1V2o133RDQeWQE uqI99Dc7xxLyw FQKdwNSPoY9nuqfry6toq thaKiKmYJAjDCv8NPm6XL QroKduEiQhXQQ9KvG0SQZ 3eLJxtV1byZtd wunoxU4dGxr+MDkvMDMvM Rj0KmpsfSI+DCWkRCJ7rS agIEahUDLpsH1wKKTcS9u 6UlIbFxH0THpc N2HgGLZnreweEw39mR1uW iDjZyR2XEurG3VtgdW7YX VvsUGxVJozPGV7D28km6A 9AGIdFSFyLUE0 cOF4nX1cbScwtsymuJVya DsgdmVydGljYWwtYWxpZ2 85ONQluUnxTmP3ABobJIN hBY50TS26uOAg r3Q0rVJ9J3JzIMBsydzgo osmuDL1JQKlUNOwaJ79cR ApNCpySq0yu6I4o426BND gVTGezG70Kq4r iFmiNIRuvHKMmH7zeicjf 1pstljkAcUlRIOhCPi6YJ p0NODpiNlgGuGjHHG6KaB 5GCI6nVWheZ1s eTwttajkiY4oSzl+TWFsZ TwvdGQ+NAVwOWV9qPrzQT gmVAMnsT6cSPUfS6u3NnP fCvM2MOrkW2Lx NAEnfifwOt88tQ8qFnSoW hK5QKkdT7JietE8FDAlfT WkANdtCGS2I24ih5U9QYW mILQwKNV4bUS3 iO1jbDqmglfwaDUsxZryr xCztLdnVObxPWwnL228VY ModDphFnCqXFKnEA0jpKb vdGQ+BT78et66 P8QtFffaUmg0LJWmSKT2u VW5qB5cLLLxTJflm4G0wI R0Y0OppxIfzn1uf4hgFFX lLMyuE47rjNMd h8Z7AIWijND5MFItlMrfA sUnyH66Jch+PGNvbGdyb3 ZhQdqll0gio6oouPi0DxB wJSIgdmFsaWdu ZDM9c0RlRd62V24lZMfdC HRoPSIzMCUiIHZhbGlnbj 9sqG3kHx0+XXMssHA7oRT 9iL8oNkIxJvY5 RMtvC078OvFcuFZmAlqkp 2luk7mztXq5IbNvRUCenf ErsMsvGHV8b7IuOn89L9K eqNavl7YrFyl2 pt87uYHow3N5wPR2Y0MdI QRanuoeaHZmrCpsXN8iXS ElabuzGPPxpY8vQYVsQ7s 6DqCmQlE1YTwy V5EjgpP9TLYehEQuSETmy GIQdT4oomjwq9qmwmvjGq IqFDOzDBy1WBx9LFCmoXf vCuGsODD3DxR4 LRT1kZOtqW9ytCdyzfuls G9wOyc+GFx5q5ilyWYxGM 2yuQU8BA62HN35kRRzn8Y 5aTX4T0WaYVEc nhraulyaiSI7JISbDDKcy G35Cf2pbNqkWz5xOHIjEH O2ZUThlYKlB6NbnO1pDrY lQRMcUEMhY9Pz zKOmUMdkC880USysZrX8W DRbcqXzZ4LyZIHwpZaiBt V9l8N9Wp9JIM17OV69RY9 0hOJxr4D0aAW2 N8TlXBMftodtzctbeHW0O ZBeQMYvoX67Jn5jbSawJq 9qAEKgWZE6PGUkbYPgW5J kyE4rDmBdWAHy ULQlU6CejHPyANulS576F IwdQmH1JQHvlqWfU1DlSZ YlhAmlFyG9g7P8Qg9TZa8 1AT77ON80eKNz m0A6sQX3S3HeKRRcnjpal jhwlDK6PQReOKTczV38Xw 4lpSokWw3cXNLyPPX2OMF lsXBdC8EzmM8x ZcKsZIUhVOYoU4NelWUfB ScaP343NNycTtW6XCIbjz PwA4VpGPYitHciVxA3o7F 1Ye7FOOksowt1 R0JfPaeplXT+NB54MAHrF I77xQInuDJmg8dzvEm1Nh FpPAReZDH2xEerKUmox4F nHJEfN58qyRTn c2U6 (more content not included)... Normal [facility] Consent for Treatmenton Consent for Treatment [id number]#1 .00CD:127 [facility] Discharge Instructionson Discharge Instructions [id number]# 1.00CD:127 Normal [facility] ED Clinical Summaryon 2021 ED Clinical Summary [address] [address] ED Clinical Summary Person Information Name: MANNIE JARQUIN [place] Age: 66 Years : 1955 Sex: Male Language: Macedonian PCP: ADRIANA MEJIA MD Marital Status: Phone: [phone] Visit Id: Visit Reason: Ear foreign body; BEETLE IN RIGHT EAR Speciality: Acuity: 4 Enc Type: Emergency Med Service: Emergency Arrival: 01/06/2022 07:57:27 Discharge: 01/06/2022 08:25:51 LOS: 000 00:28 Checkin: 01/06/2022 07:57:27 Checkout: 01/06/2022 08:25:51 Dispo Type: Home (Routine DC) EVENTS: Event Name Event Status Request Date/Time Start Date/Time Complete Date/Time Arrive Complete 01/06/2022 07:57:27 01/06/2022 07:57:27 01/06/2022 07:57:27 Document Home Meds Request 01/06/2022 07:57:27 Triage Complete 01/06/2022 07:57:27 01/06/2022 08:01:38 01/06/2022 08:01:38 Bed Assign Complete 01/06/2022 07:59:00 01/06/2022 07:59:00 01/06/2022 07:59:00 Dr Exam Complete 01/06/2022 07:59:00 01/06/2022 08:06:26 01/06/2022 08:06:26 RN Exam Complete 01/06/2022 07:59:00 01/06/2022 08:03:01 01/06/2022 08:03:01 Registration Complete 01/06/2022 08:06:26 01/06/2022 08:09:23 01/06/2022 08:09:23 Reg Complete Request 01/06/2022 08:09:23 Dr Exam Complete 01/06/2022 08:17:41 01/06/2022 08:17:41 01/06/2022 08:17:41 Registration Complete 01/06/2022 08:17:41 01/06/2022 08:19:00 01/06/2022 08:19:00 Discharge Complete 01/06/2022 08:19:13 01/06/2022 08:25:56 01/06/2022 08:25:56 Transfer Complete 01/06/2022 08:25:56 01/06/2022 08:25:56 01/06/2022 08:25:56 ADDRESS: [address] [facility] [id number] PHYS DOC NOTES: MEDICAL INFORMATION: Prescriptions Given: New Medications Printed Prescriptions ciprofloxacin-dexamet hasone otic (ciprofloxacin-dexame thasone 0.3%-0.1% Otic Susp) 4 Drops Right ear 2 times a day for 7 Days. Refills: 0. Medications to Continue with No Changes Other Medications acetaminophen-hydroco done ([place] 325 mg-5 mg oral tablet) 1 Tablets By Mouth every 4 hours as needed for pain. Refills: 0. PATIENT EDUCATION INFORMATION: Instructions: Otitis Externa; Ear Drops, Adult Follow up: With: Address: When: Elizabeth Veliz [address] [place] [address] 3, [address] [place] [id number] Business (1) In 3 days 01/09/2022 With: Address: When: ADRIANA JACKIE [address] [place] [address] Business (1) In 3 days 01/09/2022 DIAGNOSIS: Otitis externa Normal [facility] ED Note-Physicianon 01-07-20 ED Note-Physician Basic Information Time Seen: Kirill Simon DO 01/06/2022 08:06 Chief Complaint pt had a beetle fly into his ear, states he was seen at [facility] and they flushed his ear with lidocaine but they did not remove it. pt here today because it hurts. beetle is in r ear. History of Present Illness 66-year-old male comes to the ED for evaluation of right ear pain and concern for foreign body. He states that beetle crawled to his ear last night. He was seen at [facility] where he states the squirted lidocaine into the ear to euthanized the bug, but were not able to remove it as it was too close to his TM. They placed him on topical antibiotic drops and given ENT follow-up. He continues to feel discomfort to the ear with muffled hearing and comes in today for repeat evaluation. Review of Systems A 10 point review of systems is negative except as noted above. Medical and Surgical History: Reviewed and noted Social history: Lives at home Tobacco: Denies Physical Exam Vitals & Measurements T: 36.5 ?C(Oral) HR: 60(Peripheral) RR: 15 BP: 202/88 SpO2: 98% HT: 185.0 cm HT: 185 cm WT: 84.0 kg WT: 84 kg BMI: 24.54 Nurses notes and vital signs reviewed and patient is not hypoxic. General: The patient appears well, resting comfortably. Skin: Warm, dry. Head: Atraumatic. Neck: No JVD. Eye: Normal conjunctiva. Ears, Nose, Mouth, and Throat: Moist mucous membranes. Tender erythematous right external canal with purulent drainage. There is canal edema but the TM is well visualized. There is not appear to be a TM involvement, no erythema or bulging or perforation. No foreign bodies are appreciated. No pre or postauricular tenderness. No lymphadenopathy. No mastoid tenderness. Cardiovascular: Strong distal pulses. Chest wall: Respiratory: Respirations are nonlabored. Back: Normal range of motion. Musculoskeletal: Normal ROM with no gross deformity. Gastrointestinal: Urological: Neurological: Awake and alert. No focal deficits. Follows commands. Psychiatric: Cooperative. Medical Decision Making There is no foreign body appreciated to the right ear. He does have significant edema, drainage and irritation consistent with otitis externa. I cannot appreciate the TM without difficulty. I do not believe a wick would be helpful, however placing him on antibiotic drops with a steroid would be. Therefore he is placed on Ciprodex, and he is given ENT follow-up. Patient was encouraged to return to the ED if symptoms worsen or change. Assessment/Plan Otitis externa (H60.90: Unspecified otitis externa, unspecified ear) Orders: ciprofloxacin-dexamet hasone otic, 4 drop(s), Ear-Right, BID for 7 day(s), 10 mL, Refill(s) 0 Disposition Plan Patient Discharge Condition Disposition: Discharged home Condition: Improved and stable Counseled: Patient and/or family were counseled to workup, results, treatment plan and follow-up recommendations Discharge Prescription List Prescriptions ciprofloxacin-dexamet hasone 0.3%-0.1% Otic Susp, 4 drop(s), Ear-Right, BID Follow-up With When Contact Information Elizabeth Veliz In 3 days 01/09/2022 EDT [address] [facility] [address], [address] [place] [address]- Business (1) Additional Instructions: ADRIANAKARY MEJIA In 3 days 01/09/2022 EDT [address] [place] [address]- Business (1) Additional Instructions: Patient Education Otitis Externa Ear Drops, Adult Attestation Patient seen and evaluated by the physician training program assistant. Attending physician was present in the emergency department and supervised care. This visit was performed by both the physician and an APC. I performed all aspects of the MDM as documented. This report was transcribed using voice recognition software. Every effort was made to ensure accuracy, however, inadvertently computerized director of student financial services mistakes may be present. Appropriate healthcare PPE was used in evaluating this patient. The patient was placed in a mask. The healthcare provider was wearing mask, gloves, and utilizing proper hand hygiene. All equipment was properly cleansed. Problem List/Past Medical History Ongoing Smoker Historical No qualifying data Procedure/Surgical History broke leg. Medications Inpatient No active inpatient medications Home ciprofloxacin-dexamet hasone 0.3%-0.1% Otic Susp, 4 drop(s), Ear-Right, BID [place] 325 mg-5 mg oral tablet, 1 tab(s), Oral, q4hr, PRN Allergies No Known Medication Allergies Social History Alcohol Substance Abuse Tobacco Lab Results No qualifying data available. Diagnostic Results No qualifying data available. Normal [facility] Comment on above: Result Comment: Elec tronically Signed By: Ramon Gauthier PA-C\.br\Date and Time Signed: 01/06/22 08:35 EDT\.br\Electronically Co-Signed By: Kirill Simon DO\.br\Date and Time Co-Signed: 01/06/22 09:07 EDT ED Patient Education Noteon 07-09-2022 ED Patient Education Note ENT Ear Drops, Adult You have been diagnosed with a condition that requires you to put drops of medicine into your ears. Ear drops are a medicine that is placed in the ear. This sheet gives you information about how to use ear drops. Your health care provider may also give you more specific instructions. Supplies needed: ? Cotton ball. ? Medicine. How to put ear drops into your ear 1. Wash your hands thoroughly with soap and water. 2. Make sure your ears are clean and dry. If there is any ear wax or drainage at the outermost portion of the ear canal, wipe it out gently with a cotton-tipped applicator. 3. Warm up the medicine by holding it in the palm of your hand for a few minutes. 4. Shake the medicine if it is a suspension. 5. Use the dropper to draw up the medicine. 6. Hold the dropper above your ear canal and put the drops in the affected ear as instructed. Do not put the dropper into your ear at any time. It may help to pull the outer flap of the ear up and back while you put the drops in. Doing this will straighten out the ear canal so the medicine can get into the canal easier. 7. To make sure your ear soaks up the medicine, do either of these things: ? Lie down with the affected ear facing up for 10 minutes. This will cause the drops to stay in the ear canal and run down and fill the canal. ? Gently put a cotton ball in your ear canal. Leave enough of the cotton ball out so it can be easily removed. Do not push the cotton ball down into your ear with a cotton-tipped swab or other instrument. You can remove the cotton ball once the medicine has been absorbed. 8. If both ears need the drops, repeat the procedure for the other ear. Your health care provider will let you know if you need to put drops in both ears. Follow these instructions at home: ? Use the ear drops for as long as directed by your health care provider, even if you begin to feel better. ? Always wash your hands before and after handling the ear drops. ? Keep the ear drops at room temperature. ? Keep all follow-up visits as told by your health care provider. This is important. Contact a health care provider if: ? Your condition gets worse. ? Your pain gets worse. ? You notice any unusual drainage from your ear, especially if the drainage has a bad smell. ? You have trouble hearing. ? You have used the ear drops for the amount of time recommended by your health care provider, but your symptoms have not improved. Get help right away if: ? You experience a form of dizziness in which you feel as if the room is spinning and you feel nauseated (vertigo). ? The outside of your ear becomes red or swollen. ? You develop a severe headache with or without neck stiffness. Summary ? Ear drops are a medicine that is placed in the ear. ? Put drops in the affected ear as instructed. ? Use the ear drops for as long as directed by your health care provider, even if your symptoms begin to get better. ? Keep all follow-up visits as told by your health care provider. This is important. This information is not intended to replace advice given to you by your health care provider. Make sure you discuss any questions you have with your health care provider. Document Released: 06/11/2002 Document Revised: 05/30/2018 Document Reviewed: 06/20/2017 [employer] Patient Education ? 2020 [employer] Infectious Disease Otitis Externa Otitis externa is an infection of the outer ear canal. The outer ear canal is the area between the outside of the ear and the eardrum. Otitis externa is sometimes called swimmer's ear. What are the causes? Common causes of this condition include: ? Swimming in dirty water. ? Moisture in the ear. ? An injury to the inside of the ear. ? An object stuck in the ear. ? A cut or scrape on the outside of the ear. What increases the risk? You are more likely to develop this condition if you go swimming often. What are the signs or symptoms? The first symptom of this condition is often itching in the ear. Later symptoms of the condition include: ? Swelling of the ear. ? Redness in the ear. ? Ear pain. The pain may get worse when you pull on your ear. ? Pus coming from the ear. How is this diagnosed? This condition may be diagnosed by examining the ear and testing fluid from the ear for bacteria and funguses. How is this treated? This condition may be treated with: ? Antibiotic ear drops. These are often given for 10?14 days. ? Medicines to reduce itching and swelling. Follow these instructions at home: ? If you were prescribed antibiotic ear drops, use them as told by your health care provider. Do not stop using the antibiotic even if your condition improves. ? Take qnzu-hew-wgjrxdx and prescription medicines only as told by your health care provider. ? Avoid getting water in your ears as told by your health care provider. This may include avoid (more content not included)... Normal [facility] ED Patient Summaryon 022 ED Patient Summary [address] [address] Patient Discharge Instructions Person Information Name: MANNIE JARQUIN Age: 66 Years Arrival Date: 01/06/2022 07:57:27 Discharge Diagnosis: Otitis externa Primary Care Physician: ADRIANA MEJIA MD Provider Information Primary Provider: Kirill Simon DO Advanced Area Counselor:Ramon Gauthier PA-C The exam and treatment you received in the Emergency Department were for an urgent problem and are not intended as complete care. It is important that you follow up with a doctor, nurse practitioner, or physician?s training program assistant for ongoing care. If your symptoms become worse or you do not improve as expected and you are unable to reach your usual health care provider, you should return to the Emergency Department. We are available 24 hours a day. MANNIE JARQUIN has been given the following list of patient education materials, prescriptions and follow-up instructions: Follow-up Instructions: With: Address: When: Elizabeth Veliz [address] [facility] [address], [address] [place] [id number] Business (1) In 3 days 01/09/2022 With: Address: When: ADRIANA MEJIA [address] [place], [place] [id number] Business (1) In 3 days 01/09/2022 In the event that this physician does not participate in your insurance network, please consult with your insurance company to find a nearby participating provider. Patient Education Materials: Otitis Externa; Ear Drops, Adult A MESSAGE TO ALL PATIENTS REGARDING OPIOIDS PRESCRIPTION OPIOIDS: WHAT YOU NEED TO KNOW Prescription opioids can be used to help relieve kxdmflgz-pb-jekbgz pain and are often prescribed following a surgery or injury, or for certain health conditions. These medications can be an important part of the treatment but also come with serious risks. It is important to work with your healthcare provider to make sure you are getting the safest, most effective care. WHAT ARE THE RISKS AND SIDE EFFECTS OF OPIOID USE? Prescription opioids carry serious risks of addiction and overdose, especially with prolonged use. An opioid overdose, often marked by slowed breathing, can cause sudden . The use of prescription opioids can have a number of side effects as well, even when taken as directed: ? Tolerance?meaning you might need to take more of the medication for the same pain relief ? Physical dependence?meaning you have symptoms of withdrawal when a medication is stopped ? Increased sensitivity to pain ? Constipation ? Nausea, vomiting, and dry mouth ? Sleepiness and dizziness ? Confusion ? Depression ? Low levels of testosterone that can result in lower sex drive, energy, and strength ? Itching and sweating RISKS ARE GREATER WITH: ? History of drug misuse, substance use disorder, or overdose ? Mental health conditions (such as depression or anxiety) ? Sleep apnea ? Older age (65 years and older) ? Avoid alcohol while taking prescription opioids. Also, unless specifically advised by your health care provider, medications to avoid include: ? Benzodiazepines (such as Xanax or Valium) ? Muscle relaxants (such as Soma or Flexeril) ? Hypnotics (such as Ambien or Lunesta) ? Other prescription opioids KNOW YOUR OPTIONS Talk to your health care provider about ways to manage your pain that don?t involve prescription opioids. Some of these options may actually work better and have fewer risks and side effects. Options may include: ? Pain relievers such as acetaminophen, ibuprofen, and naproxen ? Some medication that are also used for depression or seizures ? Physical therapy and exercise ? Cognitive behavioral therapy, a psychological, goal-directed approach, in which patients learn how to modify physical, behavioral, and emotional triggers of pain and stress. IF YOU ARE PRESCRIBED OPIOIDS FOR PAIN: ? Never take opioids in greater amounts or more often than prescribed. ? Follow up with your primary health care provider. o Work together to create a plan on how to manage your pain. o Talk about ways to help manage your pain that don?t involve prescription opioids. o Talk about any and all concerns and side effects. ? Help prevent misuse and abuse o Never sell or share prescription opioids. o Never use another person?s prescription opioids. ? Store prescription opioids in a secure place and out of reach of others (this may include visitors, children, friends, and family). ? Safely dispose of unused prescription opioids: Find your community drug take-back program or your pharmacy mail-back program, or flush them down the toilet, following guidance from the Food and Drug Administration (www.fda.gov/Drugs/Re sourcesForYou). ? Visit www.cdc.gov/drugoverd ose to learn about the risks of opioids abuse and overdose. ? If you believe you may (more content not included)... Normal [facility] Auto Diffon 01-03-2022 Basophils/100 WBC (Bld) 0.5 % Normal 0.0-2.0 [facility] Comment on above: Order Comment: Order Added by Discern Expert. Performed By: #### 1 [id number], 5563978, 4588854, 0140032, [id number] ####[place] [address] [place] [address] Basophils/Leukocytes Auto (Bld) [Pure # fraction] 0.0 E9/L Normal 0.0-0.2 [facility] Comment on above: Order Comment: Order Added by Discern Expert. Performed By: #### 1 0607630, 1279314, 6610330, 4580276, 14728711 ####[facility] [address] [place] [address] Eosinophils/100 WBC (Bld) 3.1 % Normal 0.0-8.0 [facility] Comment on above: Order Comment: Order Added by Discern Expert. Performed By: #### 1 [id number], 8966256, 6975646, 8413107, 89270244 ####[facility] [address] [place] [address] Eosinophils/Leukocytes Auto (Bld) [Pure # fraction] 0.2 E9/L Normal 0.0-0.5 [facility] Comment on above: Order Comment: Order Added by Discern Expert. Performed By: #### 1 7274853, 7060931, 3615843, 1770600, 26606154 ####[facility] [address] [address] Lymphocytes/100 WBC (Bld) 19.8 % Normal 14.0-50.0 [facility] Comment on above: Order Comment: Order Added by Discern Expert. Performed By: #### 1 8441202, 6933263, 5629083, 5443562, 45941785 ####[address] [address] Lymphocytes/Leukocytes Auto (Bld) [Pure # fraction] 1.2 E9/L Normal 1.0-4.0 [facility] Comment on above: Order Comment: Order Added by Edgardo Expert. Performed By: #### 1 2501687, 3128674, 5892220, 4089409, 20341493 ####[address] [address] Monocytes/100 WBC (Bld) 13.6 % Normal 4.0-14.0 [facility] Comment on above: Order Comment: Order Added by Edgardo Expert. Performed By: #### 1 7520343, 0278604, 0951570, 8363901, 24089640 ####[address] [address] Monocytes/Leukocytes Auto (Bld) [Pure # fraction] 0.8 E9/L Normal 0.2-1.0 [facility] Comment on above: Order Comment: Order Added by Edgardo Expert. Performed By: #### 1 3502833, 9301106, 1112337, 0250678, 51599822 ####[address] [address] Neutrophils/100 WBC (Bld) 63.0 % Normal 36.0-75.0 [facility] Comment on above: Order Comment: Order Added by Edgardo Expert. Performed By: #### 1 6789973, 3293708, 5745747, 1848067, 92407713 ####[address] [address] Neutrophils/Leukocytes Auto (Bld) [Pure # fraction] 3.8 E9/L Normal 2.0-7.5 [facility] Comment on above: Order Comment: Order Added by Discern Expert. Performed By: #### 1 4500268, 3933258, 4627627, 1142616, 53423613 ####[facility] [address] [place] [address] BMPon 01-03-2022 Anion gap [Moles/Vol] 11 mmol/L Normal 6-16 [facility] Comment on above: Performed By: #### 1 6968529, 4174779, 7581424, 8056802, 54638667 ####[facility] [address] [place] [address] Calcium [Mass/Vol] 8.9 mg/dL Normal 8.9-11.1 [facility] Comment on above: Performed By: #### 1 7521304, 5491203, 9635532, 9424964, 46145605 ####[facility] [address] [place] [address] Chloride [Moles/Vol] 104 mmol/L Normal 101-111 [facility] Comment on above: Performed By: #### 1 7107727, 0909286, 0842474, 5406334, 71002805 ####[facility] [address] [place] [address] CO2 [Moles/Vol] 28 mmol/L Normal 21-31 [facility] Comment on above: Performed By: #### 1 9107924, 3551467, 6893096, 4155912, 19416574 ####[facility] [address] [place] [address] Creatinine [Mass/Vol] 1.3 mg/dL Normal 0.5-1.3 [facility] Comment on above: Performed By: #### 1 9081363, 0003299, 4249866, 8999469, 09406910 ####[facility] [address] [place] [address] Glucose [Mass/Vol] 102 mg/dL Normal 55-199 [facility] Comment on above: Result Comment: If t his glucose result represents a fasting glucose, interpretation should refer to the following reference range: 55-99 mg/dL Performed By: #### 1 2207407, 3016717, 9458533, 3974319, 43200709 ####[facility] [address] [place] [address] Potassium [Moles/Vol] 4.6 mmol/L Normal 3.5-5.3 [facility] Comment on above: Performed By: #### 1 7154683, 0452137, 2525162, 7432037, 62753016 ####[facility] [address] [place] [address] Sodium [Moles/Vol] 138 mmol/L Normal 135-145 [facility] Comment on above: Performed By: #### 1 7844722, 5758911, 9494486, 8072309, 90625936 ####[facility] [address] [place] [address] Urea nitrogen [Mass/Vol] 22 mg/dL High 5-21 [facility] Comment on above: Performed By: #### 1 6369967, 2851976, 3225425, 1067136, 63471331 ####[facility] [address] [place] [address] Urea nitrogen/Creatinine [Mass ratio] 17 No Units Normal 10-20 [facility] Comment on above: Performed By: #### 1 7884198, 3982178, 1530703, 1553076, 99580171 ####[facility] [address] [place] [address] CBC w/ Auto Diffon 2 Erythrocyte distribution width (RBC) [Ratio] 13.7 % Normal 10.9-14.2 [facility] Comment on above: Performed By: #### 1 6969071, 5547004, 7867570, 0445707, 23929554 ####[facility] [address] [place] [address] Hematocrit (Bld) [Volume fraction] 42.1 % Normal 37.7-49.0 [facility] Comment on above: Performed By: #### 1 1886572, 2242905, 4876836, 7931254, 20937058 ####[place] [address] [place] [address] Hemoglobin (Bld) [Mass/Vol] 14.3 g/dL Normal 13.5-17.5 [facility] Comment on above: Performed By: #### 1 0137081, 6986850, 1160788, 7500402, 13715599 ####[place] [address] MCH (RBC) [Entitic mass] 30.4 pg Normal 27.0-34.0 [facility] Comment on above: Performed By: #### 1 2948561, 8460836, 7784250, 4054138, 84882882 ####[address] [address] MCHC (RBC) [Mass/Vol] 33.9 g/dL Normal 31.4-36.0 [facility] Comment on above: Performed By: #### 1 5308780, 6880050, 8347510, 5261877, 66960789 ####[address] [address] MCV (RBC) [Entitic vol] 89.7 fL Normal 80.0-100.0 [facility] Comment on above: Performed By: #### 1 1027481, 3729216, 9945375, 4710198, 88339766 ####[address] [address] Platelet mean volume (Bld) [Entitic vol] 10.5 fL Normal 6.4-10.8 [facility] Comment on above: Performed By: #### 1 4754666, 5967743, 8605239, 5682897, 35191660 ####[address] [address] Platelets (Bld) [#/Vol] 240.0 E9/L Normal 150.0-500.0 [facility] Comment on above: Performed By: #### 1 5367957, 3579232, 7998567, 6113830, 79727405 ####[facility] [address] [place] [address] RBC (Bld) [#/Vol] 4.7 E12/L Normal 4.3-5.9 [facility] Comment on above: Performed By: #### 1 0324389, 2243779, 3438698, 3299191, 81087899 ####[facility] [address] [place] [address] WBC corrected for nucl RBC Auto (Bld) [#/Vol] 6.0 E9/L Normal 4.0-11.0 [facility] Comment on above: Performed By: #### 1 4774583, 4890587, 5232975, 3834484, 84575561 ####[facility] [address] [place] [address] CHEMISTRYOrdered By: SYSTEM SYSTEM on 01-03-2022 Anion gap [Moles/Vol] 11 mmol/L Normal 6 - 16 mEq/L F [facility] Remisol Calcium [Mass/Vol] 8.9 mg/dL Normal 8.9 - 11. 1 mg/dL [facility] Chloride [Moles/Vol] 104 mmol/L Normal 101 - 1 11 mmol/L [facility] CO2 [Moles/Vol] 28 mmol/L Normal 21 - 31 mmol/L [facility] Creatinine [Mass/Vol] 1.3 mg/dL Normal 0.5 - 1.3 mg/dL [facility] GFR/1.73 sq M.predicted among blacks MDRD (S/P/Bld) [Vol rate/Area] mL/min/1.73 m2 Normal >=59mL/min/1. 73 m2 [facility] Chem S GFR/1.73 sq M.predicted among non-blacks MDRD (S/P/Bld) [Vol rate/Area] 55 mL/min/1.73 m2 Low >=59mL/min/1. 73 m2 [facility] Chem S Glucose [Mass/Vol] 102 mg/dL Normal 55 - 199 mg/dL [facility] Potassium [Moles/Vol] 4.6 mmol/L Normal 3.5 - 5.3 mmol/L [facility] Remisol Prostate specific Ag [Mass/Vol] 2.0 ng/mL Normal 0.1 - 3.5 ng/mL [facility] Remisol Sodium [Moles/Vol] 138 mmol/L Normal 135 - 145 mmol/L [facility] Remisol Urea nitrogen [Mass/Vol] 22 mg/dL High 5 - 21 mg/dL [facility] Remisol Urea nitrogen/Creatinine [Mass ratio] 17 mg/mg Normal 10 - 20 [facility] Remisol Consent for Treatmenton 070 Consent for Treatment [id number] .00CD:127 Normal [facility] HEMATOLOGYOrdered By: SYSTEM SYSTEM on 01-03-2022 Basophils/100 WBC (Bld) 0.5 % Normal 0.0 - 2.0 % [facility] HemeAutoSS Basophils/Leukocytes Auto (Bld) [Pure # fraction] 0.0 E9/L Normal 0.0 - 0.2 E9/L [facility] HemeAutoSS Eosinophils/100 WBC (Bld) 3.1 % Normal 0.0 - 8.0 % [facility] HemeAutoSS Eosinophils/Leukocytes Auto (Bld) [Pure # fraction] 0.2 E9/L Normal 0.0 - 0.5 E9/L [facility] HemeAutoSS Lymphocytes/100 WBC (Bld) 19.8 % Normal 14.0 - 50.0 % [facility] HemeAutoSS Lymphocytes/Leukocytes Auto (Bld) [Pure # fraction] 1.2 E9/L Normal 1.0 - 4.0 E9/L [facility] HemeAutoSS Monocytes/100 WBC (Bld) 13.6 % Normal 4.0 - 14.0 % [facility] HemeAutoSS Monocytes/Leukocytes Auto (Bld) [Pure # fraction] 0.8 E9/L Normal 0.2 - 1.0 E9/L [facility] HemeAutoSS Neutrophils/100 WBC (Bld) 63.0 % Normal 36.0 - 75.0 % [facility] HemeAutoSS Neutrophils/Leukocytes Auto (Bld) [Pure # fraction] 3.8 E9/L Normal 2.0 - 7.5 E9/L [facility] HemeAutoSS HEMATOLOGYOrdered By: Shivani Saleh on 01-03-2022 Erythrocyte distribution width (RBC) [Ratio] 13.7 % Normal 10.9 - 14.2 % [facility] HemeAutoSS Hematocrit (Bld) [Volume fraction] 42.1 % Normal 37.7 - 49.0 % [facility] Hemoglobin (Bld) [Mass/Vol] 14.3 g/dL Normal 13.5 - 17.5 gm/dL [facility]eAutoSS MCH (RBC) [Entitic mass] 30.4 pg Normal 27.0 - 34.0 pg [facility]eAutoSS MCHC (RBC) [Mass/Vol] 33.9 g/dL Normal 31.4 - 36.0 gm/dL [facility]eAutoSS MCV (RBC) [Entitic vol] 89.7 fL Normal 80.0 - 100.0 fL [facility]eAutoSS Platelet mean volume (Bld) [Entitic vol] 10.5 fL Normal 6.4 - 10.8 fL [facility] HemeAutoSS Platelets (Bld) [#/Vol] 240.0 E9/L Normal 150.0 - 500.0 E9/L [facility]eAutoSS RBC (Bld) [#/Vol] 4.7 E12/L Normal 4.3 - 5.9 E12/L [facility]eAutoSS WBC corrected for nucl RBC Auto (Bld) [#/Vol] 6.0 E9/L Normal 4.0 - 11.0 E9/L [facility]eAutoSS PSA Totalon 01-03-2022 Prostate specific Ag [Mass/Vol] 2.0 ng/mL Normal 0.1-3.5 [facility] Comment on above: Result Comment: The concentration of PSA determined by different manufacturers can vary due to differences in assay methods and reagent specificity. Values obtained from different assay methods cannot be used interchangeably. The methodology used for this result was chemiluminescence using [employer] PSA reagent. Performed By: #### 1 2140520, 2700509, 8346654, 3881723, 04295004 ####[facility] [address] [place] [address] Physician Orderon 01-03-2022 Physician Order [id number] 1.00CD:127 Normal [facility] eGFRon 01-03-2022 GFR/1.73 sq M.predicted among blacks MDRD (S/P/Bld) [Vol rate/Area] mL/min/{1.73_m2} Normal >=59 [facility] Comment on above: Order Comment: Order added by Discern Expert. Result Comment: eGFR is race adjusted. AA=. Performed By: #### 1 1902126, 6676871, 4539671, 3659096, 86452802 ####[facility] [address] [place] [address] GFR/1.73 sq M.predicted among non-blacks MDRD (S/P/Bld) [Vol rate/Area] 55 mL/min/1.73 m2 Low >=59 [facility] Comment on above: Order Comment: Order added by Discern Expert. Result Comment: Purchasing Administrator asia kidney disease could be indicated at eGFR's of less than 60 mL/min/1.73m2. Kidney failure is indicated at less than 15 mL/min/1.73m2. Performed By: #### 1 9491155, 5570229, 0376095, 8865400, 14721925 ####[facility] [address] [place] [address] Coding Summary.on 10-17-2021 Coding Summary. [id number] h0bWw+PGhlYWQ+UD5AOHJ [id number] ZFZEARPFKC4JYT6xsST5R HokZ5SuenZz FhbklRUzLJ28QAv4ZCD5a MddGHzvjF8teHKoH9g0Gu RwAJ91zN87YTcsTNWzRgF 3LjZpbjsgbWFy V9zyDtVtnOBoLrq+PHRhY mxlIHdpZHRoPScxMDAlJy KhaGudDT0pWl6gRYPqSOX vbGxhcHNlOiBj u2dyVLCoYPznLZ6qjFxnT 9OptWU9FTWqh9s5Dp35dH I+ILUdCVQ6pHudYRwsu65 4XvKfv6uvCXN3 pDSrDJsbYXA9O20gc8B3L WCeIITzCCT9nTM1pG4mdH cdwtwpM7OegCAkTyL3QIM 9uXBxiL1lgZhm ivexiY2bVwr+C16HLF7YD UXCLP4OQcu0P6XhIltfeA I+VA33BSLhUZ94nDFqkMK na6jyvFl2ZlJi QXHkGQK5eZzbQPqpa3CmN AFlF89xgHCmp1R5RQOisP jhqXPeNyZanHC9oC9yWMc zhwrlq5kyjyak Xxcca3ghdb58uN15C15sC SxaMRPlSNQ2RUQpJPFudT fhdo9bmH1pKf9+CXjdx6s zm0niwVx5BbQk XTRkgaEjxOquLEY2b9QxG b10F0YgyVkaw0KtBrj7rr 16kWKib5N7zEV9YVjqLOM ypM0fCLoxHfZ8 VYPfDlTpuZ86iZWbMSxqB c5yvYxykKrcAU4aALRyrc mlIDFuqO3xBSQabADnqIo oWH4uLIDrtzfq n496PrXxHGQ7TKFtmMAhR 0PsxJ4cDmAaEUTaRROmL8 GwzBWeWSjpY313TDmkAfX 1VRVrjyPwK9Mq JURnuEwwSwR6w3R8Hc6Xv 3DydfdrUPL9FRgdNLQ8Wx P0DlJfNnO6F3KtCst4UMV ivDvgLW8mO6Gi BDQwbhmavunupBV7SPDsC HShvO30hITmKMbuGm6mx5 X3g475OSOhJPCtzC05Gv2 udDogMTBwdCBU jZ3bdnziy6bqjkanVrQiN PGfXCw8WUl4JIOfoAilWo WxYOE7VvB9ZMO9nCZotH2 nfTgttyftmT8l Oyc+T37lnZ2uXQC4VPZ6r wraKYTxmjFiAO90MH57S2 RyPjwvdGFibGU+PGRpdiB weBbyMN6bBpXm m7jdq5WmYTqmP9UfSOEvV NftXvv3RLWlOJC7yLH2fY 7pRQVoEBpbu7I2cME1S6M siuJgnz3qt7ju UXGsLWmvK69gkRTwk6Q7I WKwbIJ0IFYlzQiuUiPilK 93Oyc+JEBbzRkyz9UhUep xf1qqd1dwlHs4 KhPsQBZiiiEkjEvhCKI6a 8GuPr30N30oHXdpKHZuHU QyRAIdUZNnkHdcxs1ylZ2 wIi8+PGNvbCB3 cRH2sX2iVIYsZhZ9PSgrE 529TfYaxTKaHcdhp7xcw6 givAl2DrFuTWTdsxGenMo xPZX4u7VuFc52 N30qNGhgNGXiSFPnFSPqT AUihNmual5lgO8vBf8+PC 7my2ecdl41jA21sLX+PHR tLYG9bGazKZwj JXYzpU3nZZzhOsR1BBNoC aQakE74cHPsZKtoIa8gkW ozmKoyRR9xWHXpwstqx58 1DySnj4vcLLYb nNLzFIjiEPZ7C21vm0S8V QNcRDZjEVH0yIM1gH6naG lnbjogbGVmdDsgdmVydGl wUZvnKFuyB765 IHRvcDsnPlBhdGllbnQgT jZfPPu4H3LtRdo7HYYvcF qjDK1bjQYnOHnkTq6exLg dgAepCP0aNFJy kryzg051XlDkr1imNKHlj XWgILsyLGK4K87ee5R5QH QvGCMjAPS1mHN7zB3iaBy nbjogbGVmdDsg nnItxAclNLawKWpoI700O HRvcDsnPkJpcnRoIERhdG T2RR35ME44uZGrs6I4tUB 9R8UaKMZgovst wwbayGS2DEZjVHRwlT92L f1jiDvoKq6cKZUvKXL3UQ NahMSnO0ZuuJ8gTfNlYOC uURNsW7IowURf DBdhY130IUraNdC7BWQfv kKcU3ZrQXUzoNrqQhC6u7 S2Tf4IG0H7TP21IH66vWX yl6C0dJD6C4Nz EXFhuymvhokbjEH1FZQcX TEezP11Yf1joTzhVp0mJA RzSIJ6AGIrmVTlN8OwzX4 yOiAjMDAwMDAw A2LwfJAdRWlaZ881NSygP bZ0GWHoigVvG1YqRTPrsT krOqN8q7F2Xk4OZHw9UC3 3CH33lNWqp9G3 mOY8G0PqLKTzcxzdoxojf DU0FQIgVBYagJ73Of4wtX cgYl9qRZWnTIG6GOTrcLX qG0JpzQ1zKoGf VEJjRGGeP3WzxSJrHQmtU 485LSltYcB4MCRpzyEgK6 PrPAYfsMivOrP3k6Q1Ox4 XBKTlXD85PMN7 bWO8DV58UG40K8BlQpznr GFibGU+PHRhYmxlIHdpZH RoPScxMDAlJyBzdHlsZT0 uUc0aCSIhPKXr xObizVKnAcZsx8hnUEIsV KzbQD8mbIikB5DbbTD9QG Ehl1d6Pl81S61hS1SvxQQ +LPLfpPH6xTR0 wO4wDzYzEiH6OTjiS369X kObdKUkMoirt9omz5xjoV f1LyS8OWMliyFqzAnjXFB 8s6EhLp79M72j IHdpZHRoPSIxNSUiIHZhb Yujrh2ztC8wIr6+PGNvbC G8vUE1lV5kSlDqHmA0IDs wV994XzJtbSMd Ymqgz7vxb3ggmWi6WhMjR BCkoaQhlXoeDVQ4h4FqVd 96X3NatKhar0NuMlk1wx0 7vVYyf5Z6qFT4 M8DxMWYilshpvMYthOrpF V2nMMHgqrujTXGvqQ3yVK EnX6c4XyQgVkL9RKcpU6L ffiJ6AWQzdLTo BYlxSLJ0J54mp5U3DWQoM AIqQUS1iLN9pG2pyCpgut ogbGVmdDsgdmVydGljYWw pSHooK038ANWb vUxkHDZkzE4rRNLuvATjk YvcIC9bPKGqmbtxRqZLNf MYTqWCHBQUG8bISuAJWT2 1UC59uZMnc4H8 cZS0Y2QuPMCzcvsdxebtt VT5GLMtIKRnuV38gCQbMF voVv7uc9G0t684QMFoWCP gjR00Ry9ylWas TIXsuZHNiV4abzdvy9jmd hgoEmTqLLYnSTn0LLc7IW DgaIiwMeFcMFM3EvQ0HZS 5tVByfP0baNoh yptrnN8dLep+MDkvMDMvM Sb9ZogtjTM+GXVjZOY2tG btBIioLXEbyU5bZVZaP7j 5IgUbTzF7OSkw P2HaPKYlxdraVz69tZ3rU cLzHfH3HAumY9GapjG6RW MknENkBSczTPS8C36cu6K 4ASTwVRXpWXR2 xXI2rF5hjRekheawuBRim DsgdmVydGljYWwtYWxpZ2 61KGBtfNemQeU6ULyrECF zXO27CQ14eAOu r8A9vIU8H8FkVMNuwuurf cszkXS6BSCvWYFrbE69dY UfPDkqIu8ws8X8y195GGH eBOYbbB69Tp0l fCvdRBSzzGDNoV8awssxq 5qiibhyOmGmHHVoJWu0FC o9LXLweLntWkMmYUP5KyF 3LUR2kOItzB9i lXizemguhR2yLso+TWFsZ TwvdGQ+JDNbXBR2hXscXP goRCLrnZ9vTYOrR7l4OjC mGrY0JUafF6Rj SXFltkyyJw50kN7cRiZuW fM5OUusP0GgqiD8TGRutX AbSSgvURT6V83si2D2UMR wHAJhVZF3hZM9 dX8wzYnjibgooGXapPlzy mNjyPdaDIslWYoxG272DI PcpGwzKr92tBFwtNidwoT 5X3KvPzdidPO+ PF17CXLzWI66oSCnfMJfu 6ztzKd0RhRoBTNsBGL7yM vdVKudj3BgNMIaB77qaQH rm9J0RNZjpJlz bFLgDvOxxHA1oB6kTNrar ztzq9vvpjkwRwofb4iyvy 91bG82Z81jQFslXOVbRLY zMCUiIHZhbGln et8hvY3lHw3+CQAecMP6z JD3dP8dUgDaHcD4WMylT8 17MxOblKUwPwwff2hzf4e siIr8OvLjZMIx nbLuyWqkASO8e5XkWd78M 29sIHdpZHRoPSIyMCUiIH TgoFvovl9scD0iPl1+PC9 so3izub11kI17 dHI+YGUgHIZ7hXrzBGbtB OEjgR7eZYcdKxT5DPNgSj YjtN69oRMfXHbrEd6leNx naEmsZK4qJFKu iegep801ZcYql1zyUFKik XSiBRseJBP3L75ze5W0UH CgZEUrXBN4yUK7dK1ezXi nbjogbGVmdDsg xrZtxTddEDqzFYsxT470O FOyoGzdWdPiqLYsZ8scyl ZQUL9rWuxaxEB+PHRkIHN 0eWxlPSdwYWRk cE2qDSClI9r6UwXkLmH3K BbjJ7CzliR2FKBbbFFwAI UwpROXiS8jxzsik3rqgvd gIzAwMDAwMDt0 WHt4ELQokLjsAuVoJBW6X nT9SVL1pQEypY6uaKoavz rqwQ7sDwg+RklOOjwvdGQ +YBFxKRH7wCzv LNqqKVCemA9xNIUcR3u2I vMkWiR9VEiwZ3FdoaN6WT XayUAhWRYtbFIOzO0dvzh ws6tacefjCtWi FWWgYMb1TAu4KSPrkZvpI nWuDMX4GgU5WIP2gADvdY 6zfJrbxlnvbO5eKkw+TVJ OOjwvdGQ+PHRk ISZ0fTcvHDanNAPbkD7cE ZLcO1m4YiItSrR6IFfpZ4 OkffL8VZWddMQqQKMhnRI KsF6aaitvj7gi haijLdFlXUWmDSk4DDu1K ORjhAktQtNtIOK2MnF4CK Z1oPWvzI6leWmnoiapsK9 wOyc+XNI9ZAD2 GR01WC19N8QrEskbvRIkl +PHRhYmxlIHdpZHRoPS thTQFpGgNomPthZK3gBq2 yZGVyLWNvbGxh cHNl (more content not included)... Normal [facility] Consent for Treatmenton 09-29 Consent for Treatment [id number]#1 .00CD:127 Normal [facility] Patient History Officeon Patient History Office [id number]# 1.00CD:127 Normal [facility] Sleep Office/Clinic Noteon 0 10-09-2021 Sleep Office/Clinic Note History of Present Illness Here for follow-up for his obstructive sleep apnea. Reports that he has some issues with his CPAP machine initially but now finally was able to get it to work well for him. He has been using it every night and has no snoring with the mask on. He has been using a full facemask but has tried a nasal mask as well but has some significant mild leakage. He reports that his fatigue and daytime sleepiness has improved as well with the use of CPAP. His weight has been stable. Review of Systems Constitutional: no fever, no chills, no sweats, no weakness Skin: no Jaundice, no rash, no lesions, no petechiae ENT: no ear pain, no sore throat, no congestion, no hoarseness Respiratory: Denies shortness of breath, cough or wheezing Cardiovascular: no chest pain, no palpitations, no edema Gastrointestinal: no nausea, no vomiting, no diarrhea, no GI bleeding Genitourinary: no dysuria, no hematuria, no discharge, no pain Musculoskeletal: no back pain, no trauma Neurologic: no headache, no dizziness, no numbness, no weakness Psychiatric: no irritability, no mood swings/depression. Heme/Lymph: no bleeding tendency, no bruising tendency, no petechiae, no swollen nodes Allergy/Immunologic: no seasonal allergies, no food allergies, no recurrent infections, no impaired immunity Additional ROS info: Except as noted in the above Review of Systems and in the History of Present Illness all other systems have been reviewed and are negative or noncontributory. Physical Exam Vitals & Measurements HT: 185.4 cm HT: 185.4 cm WT: 83.9 kg WT: 83.91 kg BMI: 24.41 General: Awake and alert in no acute distress HEENT: NC, AT. Prolonged soft palate Neck: Supple no JVD Assessment/Plan 1. LINETTE (obstructive sleep apnea) (G47.33: Obstructive sleep apnea (adult) (pediatric)) Appears to be doing well on current pressures without significant side effects with good tolerance and compliance with CPAP with a significant improvement in the apnea hypopnea index to 1.9/hour with relatively mild leakage. The patient was advised to clean the machine regularly and change supplies as needed. Avoid driving while sleepy and avoid sedatives and hypnotics such as alcohol. We will continue with same pressure unless new issues develop and see the patient back after 1 year. The patient will call us back in the meantime if any issues. Follow-up With When Contact Information Kirk MOREAU, Beth Ramirez, MANAV, LUZ MARIA Within 1 year [address] [facility] [place] [address]- Additional Instructions: Problem List/Past Medical History Ongoing Smoker Historical No qualifying data Procedure/Surgical History broke leg. Medications Trinidad 325 mg-5 mg oral tablet, 1 tab(s), Oral, q4hr, PRN Allergies No Known Medication Allergies Social History Alcohol Substance Abuse Tobacco Immunizations Vaccine Date Status Comments SARS-CoV-2 (COVID-19) mRNA BNT-162b2 vax 09/30/2020 Given Prophylaxis SARS-CoV-2 (COVID-19) mRNA BNT-162b2 vax 09/09/2020 Given Prophylaxis diphtheria/pertussis, acel/tetanus adult 12/05/2019 Given Normal [facility] Comment on above: Result Comment: Elec tronically Signed By: Kirk MOREAU, Beth Ramirez\.br\Date and Time Signed: 10/09/21 11:41 EDT Sleep Studieson 04-27-2021 Sleep Studies [id number]# 1.00CD:127 [facility] Coding Summary.on 04-25-2021 Coding Summary. CD:[id number] G h0bWw+PGhlYWQ+IO6LFWR vK20dwGXgyP2TC8lCLZ4V WJIRDSOJRF2OMA2ntTI5H EauE9WquuXl NgdvvWCcFD77IHk8OJA9m RrzMFbazE0sqVLcT4l6Ot NlZF86dO09ICavKGOaKmD 3LjZpbjsgbWFy D3dzUsNfsVBqSfj+PHRhY mxlIHdpZHRoPScxMDAlJy HplNgcWE0bFv5xRQCyYCM vbGxhcHNlOiBj u4ruPCVwFCjgZP2eiGpzS 0UcyRY7AKCdn8q6Fg74vV I+PKLfMNF5xJslQHifq26 7XuPqu9roGNG0 gHZuEGrtSJW7H79sc4V2S SOpWFQyPKJ9iDL5yV3eeQ blqyafL5ApuNOgTvQ0OSJ 4rEDlzR8kyZjb uspkoL6iDjs+M82CUW2DV BLNNT8BGwe4G5YlMmqkiB I+YZ10ZNWqBS22uVDhnGO bt8xnbXy2YxVg WCKyCDW7uLwqHZkdd0ZoU FFpO36vjSEig8Y0CFNieL lcgSRePyLgpVM4kO1uTTl ioosvu4rtxtqz Rexve6uwrl15jK58N46wX ClqYQRjFFD4PDCgPKKkaA mula4sgH0pFk5+JIypl9a it0xghAn9BaOs MGEksnUprRixLTB9d9SiY t73U4EqgGjzp4XmBkv2vh 75uKFgl1H2ePV7CNvzNWA scI0gYMztYuM6 WTVqZwLzpN04qCEwWAoaP s7enIedgHbhLI0uPURnta xkEIDklE5jGIMbuUMwpPh nLX4fFCTmbxlz t134HpXdFQP0GYZphPHdQ 4IaqS2xMxDfRRFaDFRdR9 LarIUjIZhqO476UDrmUtF 5ZMChhgGqV1Op BITurMqmCwT1d9H5Ae4Kt 8LedidgCTX6NEquMSWhBi F7BlZdDaJ0H5AuPtl6RVI miMdwSQ0uF6Pe VDEibnzoaalqvVV0MVNmW RTrmG21eFFoKUlwMi1lg0 M2g452IACnCRPpsS31Vg2 udDogMTBwdCBU eU8fzipzu2wfvpgkVsFaB GNiQQq0LBz9FSQjbHenXc FuXVX5NsZ3OVD4dQXmgO2 gnGegfinomB6e Oyc+Z76nfC7bQTY9UJA1f ricGEYtojWpMV76CO26U8 RyPjwvdGFibGU+PGRpdiB sjDmrEC8gStCr h3tvt0LmBWjfI7BrOJIuD RtmQrr0PXWyOHE7jVN0nI 1bIAQxVAujc1J9pFN8S2W zzgQnvh2or8bi FRSzAFizY23uvNMxa2I7E APobWA3QJAyuGwyBeZinC 93Oyc+KEJvbZltm0UvVnf oa1tsr6phhAo5 RyEcWOXlftUvzPbjVWI7g 4BjGt62K94tPAfpQPMqTC QiOHNgTTLwbVklkp5ygP9 wIi8+PGNvbCB3 tFJ0fS7cSAAcGgT0URwnX 296EzYkfTHiUndva0hnh0 qojUy2ZdIwXCVwlvOzeGa dYRV0t4ToQp09 R41wTRudQPKeTDUtZHNyA PMkjHhcud5gxM0gMl3+PC 8oj8mszr73dR59fOF+PHR aVEQ9rRpdDUut IRSnqR4bEHylZdO6YWVwK oKijF09zDStOQnxNi3ztU muxLtfIC9cSIQaspuwa95 1BbCaa7csMNNx gGCiLZmiHSW6A67fs1T8Z YReRTBuPAC6mKQ9jL8xoP lnbjogbGVmdDsgdmVydGl xQNroATjnD630 IHRvcDsnPlBhdGllbnQgT hPbCYk4U5YhYty1ENXthX hhLN5cwZGhVFcsUi4bnIe vnTkaRI1aYRPb rsnbj593XjIwx5nkRYQxc OAkIUtpVTE0T71nf6E9UZ KdPAOsEFD6yOF8aH9cxFe nbjogbGVmdDsg rqQqxPjbMMwvYPxrV484R HRvcDsnPkJpcnRoIERhdG J9QK12DN89zJFpa2S3wOV 9V8AoXIRunajp ymccqFC9AOUgABDwsW77Q a5haIfjSc1oWRImOKC0FC VjiJOmG7IwdH5mAbLlZKU vFUBxY5GzsUJf DHwjP310NIjkDtN6LAMwh rMeE9GhNWYgkAnvLvL1s8 L7De8YK6V2DZ84VB33kKO nm5Z0tAQ4C7Qn EDYsjxzpmwvsvGO5KFEyM VPcnE86Ne6jiObsBq0lOP WlVDK2QXXvvRYhA0FebU9 yOiAjMDAwMDAw H7NivJDyTBphO205KSrtO zP8MZMageEyJ2SdRVLphL oaWwH5w9M4Tj5ONWs9SP9 3VJ86yKJaz2T7 qVI4P0UbFZTibopldskqr MX7NWAtZWQomJ42Lg5eeK toUf4eFCPdWXN5XIZalDU qV9BpiO5sFdNk GZClBHPcX4YohTCqNYabF 919GSflSjR8OECxhdWiW7 NwPMQkrOieVpZ9j5E7Qb3 ORHXfDS56CFA0 aBS3VY67IW70L2PcTbeio GFibGU+PHRhYmxlIHdpZH RoPScxMDAlJyBzdHlsZT0 kFd2zGHKjQBTy jWdsvNHlPcVxh7vdFYLeS TwhYX5udFqiS2YyvTW7OD Lzf6e8Yx21Q24rL0DrdMT +PGTxnCJ2oTM5 fZ9bPgOiJwB6GNsbI535X iNinUQjPlilr4whb2exaS r3KcU0EZCbczBijMkbRFD 1j4RkAg20N28r IHdpZHRoPSIxNSUiIHZhb Mcvai3dnR8vXs5+PGNvbC T0kRW6bC0bMpYdEwX1SXr zB432DdFbeDUt Eezth2dgj8dqcOq1VlFzA NTzxkFpkEuuRVO8d2KsMn 14Q5HnhTuwo8HsSfd8bd8 6tEPmz8V4cBU8 J7PtKUYvpztokCUyrZtsJ B0lHVNlreljSJXiiA8aCC FxM6h8FkGkLtN4GJsbK5X bdvS8EJWmnDMl XOgqMEY5U62sd0B0KARvK DVtKUC8fJI5xQ1szPtajv ogbGVmdDsgdmVydGljYWw lLCznX115AVTo tBswEHDffE7hMZVjhTWjp PhoRZ8gTTPvpqojZcLDNf RMRuQBUYBPJ0wAIcWABT2 1GX32dPWjp5J1 lZC5S1TjZYOhaypzfdmvu DX2WJUySSFyzF47sCKtEJ doZp4rh3Z4d666HMHoMTM zwN35Vt9eyIpe ONOckGGZyR2qzrjcs9qoe nyxNtSiCSAaOPz1LGq5BG OcdRgfLkGzQQE6QyJ1ESY 5lSKmtP3rkXhv jzlteP4dJuj+MDkvMDMvM Bl3VllrjCS+GUWtUDJ8kP jkGMmvABCdrT3rBAGpB1v 4ZdIgYfJ1ZEgq C4SbNSGkypalJl65rX1nW qYyVpE8ALzoI7UppcU8HN BlaRRoCZwnOHV1Y41fe6C 2CFRyUWMmJRR9 eGO4eF0naTuuhebmlLShb DsgdmVydGljYWwtYWxpZ2 72DUSkuHduPzB1IDlbSVT tTK79YV02yXZp t2G3wIN3O6CgGMScykakm zwguAC6YBCyBTDiaA26mB UzQPijAm2mb7H4l069CRI lTQAfnH98Zp7g oIsqKJOkpFWZgA4ufosap 6nqypsvEgNjADEoOGp3QU a1MPBuiXrgMePvOVM6XcQ 4RUC2aSLovP7n pKeskooxyZ3tUyx+TWFsZ TwvdGQ+PVKpPQG4tLttLK bxPNVmpR6bOAPzJ8a8JyW vJuR5UJncU8Qv EZPqimvfMm78hX1gNgJcP vX2XJklM8OssjI3YNDjzX VtISvsGJP6G41pf6Z8VFH vUDKwQYR8aGA8 wY9ogMsgnnvqwKMfsXfor hEafTecOJnzJGvtZ155VA QkpNvwCm38uHXjvAapyoX 9Q3MsDrrfeQO+ OW71FHDmWT99pHAxqVYjl 4xhsYq5XxDnHNAtBGA2qU pmRCupv5MjJZVkQ57efUO dw5J6CXTirQfq rZVxSlFvuTP5cY7lTCwwz lqtl0xgnbxkMtgwb2ktzy 94gY13V02oZAihMXNpQYR zMCUiIHZhbGln pa4csS5dEt4+HGIrfEF1e RA8qU7sSvQzPcK3ZHcbF2 42AaDusEHgIyqwy5zyr4j gkHg7UhMsJBSz flZwaGdzELW8s0VyVm56Y 29sIHdpZHRoPSIyMCUiIH RuzTuayi9axJ0xIn8+PC9 vy6tmtz45tI27 dHI+VQHnARI9aKkuSMjqD HGekV4jESfoTfZ9WMWgIp RxoS11pAFgCWwwOj3zlGc qnUjbPK7sETJg ywunf301MkCqa5fhYLItb WEqZTnxGOP2Z42kb5C3MN MyGCGwKWD3oST3iJ7jqEe nbjogbGVmdDsg hsSdbBrgWJasXYnnS370P RHvgBrpGzZzrAGoW0mimt OVGD2nCuzkrJA+PHRkIHN 0eWxlPSdwYWRk bM9uAFOjK8s2UxQyTtV7U XjxT8UslvZ6RLIdcUYqVA YfiVNMzY4lpixvp1qdutf gIzAwMDAwMDt0 GUt1CUKuhZdrNcNsCRT9D tZ1UVG2mIHmoZ5brUjpyd usaE4aCav+RklOOjwvdGQ +CIIgUNZ6aMnf SLhuLZPilY5mYLRvZ4z1T lHeZcQ0HNqnV3MdsjJ8FB XjnCYnFLVknEYTpC9yhjx mz3fgqkynJsRw YJKuZCl4NHq4VRTveOceH vFfPAK9AcX0RKG0eXGpwL 3onLbrkytvbY8uHap+TVJ OOjwvdGQ+PHRk NGY0wBawSBakFGIkzJ1fA BYkX8y4SeGeMiU3SBstM2 HecuG5VDGqgXLdJMEguGX MnO9lizwwy6tk glqtVvAeDFTiUIq7SFb7P VSkrOfdKkOyPCX3IiI5NW Q2nSJbkQ0zyBndgylavM4 wOyc+LYY6JSM2 QH52SR96L3IlKrvdeKRbt +PHRhYmxlIHdpZHRoPS qcYZVsKxWhzHdsKM6aPf0 yZGVyLWNvbGxh cHNl (more content not included)... Normal [facility] Prescriptions/Work Noteson 1 Prescriptions/Work Notes [id number]# 1.00CD:127 Normal [facility] Consenton 04-21-2021 Consent [id number]# 1.00CD:127 Normal [facility] Patient Eval Forms Officeon 04-21-2021 Patient Eval Forms Office [id number]# 1.00CD:127 Normal [facility] Patient Eval Forms Office [id number]# 1.00CD:127 Normal [facility] PT - Consentson 04-20-2021 PT - Consents [id number]# 1.00CD:127 Normal [facility] Patient Eval Forms Officeon 04-20-2021 Patient Eval Forms Office [id number]# 1.00CD:127 Normal [facility] PT - Consentson 03-31-2021 PT - Consents [id number]# 1.00CD:127 Normal [facility] Patient Eval Forms Officeon 03-31-2021 Patient Eval Forms Office [id number]# 1.00CD:127 Normal [facility] Physician Orderon 03-16-2021 Physician Order [id number]# 1.00CD:127 [facility] Sleep Studieson 2021 Sleep Studies [id number]#1 .00CD:127 [facility] Coding Summary.on 02-23-2021 Coding Summary. CD:[id number]:[id number] G h0bWw+PGhlYWQ+JU7ABXN zU66dkSBcrX1YI7zHEX2F MUTUTQJEBI1AQB6qjCW3M TtcR6EsuwZh YxlrgXZyUX66IQg5PCV1e ItxYKupyI4diGQiO6i9Eo KmRR93jL36BPtfZJMeHzU 3LjZpbjsgbWFy C8jeOvFibHEoPov+PHRhY mxlIHdpZHRoPScxMDAlJy BhsNpbSR9fWg8cDTNoBNR vbGxhcHNlOiBj a7ffUZSsOQydOD6ltYlzC 0WcaHO0PSNyg5f7Uf29sC I+FUCvSYE4qCggZHoop61 7BrDvm8ebGKB5 jMVtLZkaJRB4K62wv9B7I LFmKLLtELI4nEO8zG3pvU ytsmtnX8OibNAnDxL1YMM 1tZTqrL7hdIkh nnrckK0kPxl+N16DYG9QB RKZQY5SEtj6R1QbLoabxW I+XU42HUMdQV60uALscUI vp2ighAy3BnBf KYJrCYT2ePdeYKciq8FyV QHpD37fhDJtl1A1FRBobO okvPIuSqKlcRF0cL4uCSp ebetgn1vjkwvy Gwdld4nnhg82dF58X23dJ NvwVQIeMIO4RSAlVJBibF bknm7kuP4bHe3+AWqlw3h aa1tcnPa2WtFj VBDcdcFnzKgeNOJ5q9CfM h13O9GyxMqew5IfUar8ah 50zSVmt0D6jAW0QSvwKCI drE2nWZguUuS4 QPUoOqLkwS84fMHjPOwsP c9qiXrfoPvjYJ4kEMMokx muALWllB2uOAZbhZYrsDh zBE7aVOVxdjdz u395AsRtPDK5XRLgcGTrS 3LojZ8uEuKtRXQsECVyX6 KrmEDvBSvqI627MJfhOaV 9XXHvnaOeZ2Ai LSLchNyrClD5u0C6Gm6St 2UzmnrjKXO3IKwkKLY2Ic Z6VeXoGsZ9F0XlOpt9HQT twOweWJ1wZ5Uk HBJnbjxkryzsuQT2FZTaT FHedA79jJMuHGuiRe7fv0 F1w129IPWcYGVmxU96Jt5 udDogMTBwdCBU cD7vyrode1rwmlnsJyWcF GZdTDt3NZo3XWCllHvfKj ZmOBU3EwM4NTQ3wBQryM6 hmDryfqubgX3b Oyc+M06yjK5aTMC9EKX4z toxBGLsfkGqHU13SD31G1 RyPjwvdGFibGU+PGRpdiB nlMnqSM1gItIe d6brd0QaCYnsT7KwLPNbI DzuIej9RDDfQAA6wRH7fJ 5gPSTbXLetl5M8kWG1B5G ihgExrx0ug7os HWRaLSbdQ71lgNAtv4R1Q PCafUF8UEWtwZtcAnSsoI 93Oyc+PVGuzXmrd4BnKtv dw9jqz7tdmEe7 ZvMgZFThjiOusRvyWPC9z 6MmCa62U52vGFcpJWHfEG UjLFScYJDytUmebe2ymP4 wIi8+PGNvbCB3 sHM2tR3uLIGbHfV3TVbaA 080JmSefGPuOdmck9fyr8 ufxHj1UzElKAHlhvZyjMq iXPY7u9BmDc95 H68dDStgBIClINStCVUkE COalIlikq0gmC5lMg7+PC 9tf0gkku79fQ35zWO+PHR wJEP7qXscOYvn QWSsvK2eCWylZjF1JTKiL cRrjG50tTVsSJcaKk5ieI jylGoaIO8qPAFyfwckq12 9AgLki5fhJPMa nDKqKHpnJCZ1X83jc2J9C LCjQDAjQKD3yNI5vK1lrM lnbjogbGVmdDsgdmVydGl yDSkwYFktF249 IHRvcDsnPlBhdGllbnQgT iMwUIl1J0NvCty9XRVhcG oqTM5ppQWpSUfpDs8osMl rsXehJN7iRIQg fgedv265DfXqn8grROSui QKxGXdnQYR1G50ic3P0HV JfTJSpKRM5gXN1nB5hcCv nbjogbGVmdDsg cgXgzBnkKIptBShbE419S HRvcDsnPkJpcnRoIERhdG Z8UE43HG58jZKee5X5eAV 4L6CoIUVscudl ayxnkQP7UGXpWINfvE12T b6ldWgqXs3qQGCsMZT5GS YmyKZaB3XrlM8mAwMeNAU hFLEfW5SvvSLg WTkfZ259XGfjOlS5LWTjw pScN3CpOTXbhMdyMtV0y4 V4Lz3ZE5G9GD56GI62nJY jc8P9qPI4E3Ej EGKgiznwekdikSZ6YXBeL RAnnP18Io4rcJyvOw9rRH YmHCE2YQKdiXLaJ8LaeQ0 yOiAjMDAwMDAw X7UjkWSlMAvpE780XCpuK eO1DQVzpcUjE4AtZQUakL opYvE7l4G9Aj8VEQp5UV8 6YE11dTVlx8R3 mXX4L6ZlMLQgqjlxlxjmn HF7UGBsUETllU95Ti4umL ihRd9uCBOtKFD8VTSdyRK uF5QceV9fBfZl KBNpEKBqH3NamSYkIZedY 287PNclZkD8DXNpoqNpM8 AzUWCogMyjMcX7d7Y6Ha5 AIUWpFC49VAO7 gPB3PR58QK77A5CwHbyed GFibGU+PHRhYmxlIHdpZH RoPScxMDAlJyBzdHlsZT0 uWw8zVOVkINWs gUtexOOyWoHuj0znEAQsY DlvDA0rvIxpJ7CrvFB0OC Bhn3n0En89O66cL4XcoOK +GHBxwYA7rFP8 sX6wEcYxIiC6LUdhK140R vQmlAZkGpiht7xdp0hymH u9QxS1EPLciaFoyWiuMUK 6h0UuPw27C21c IHdpZHRoPSIxNSUiIHZhb Jtcyo4guT8bEi1+PGNvbC W7rVO3pN7nCzNlVcP5YGs wE156DpDesYOh Zlhke9ctb6nloQi4TnHbO ZHzkwZpsJjoQEQ7c3IyTn 35C1LgfHpqx1TuBlc8ex5 3zRMqo9P3nRT5 N1MnSHXzmehbhSVgoGkkM T3xFGBfhlrsECGebB7aLK ThW2s0PxHbCzI5YEyzY6D vlsI1SKLaqUFv IGxbXIF8O56ib2Z5PNDiN TFcEGB7uGO7nM9fbJzcsb ogbGVmdDsgdmVydGljYWw oYYmzJ174FDNp sMcdEVUjtU8oTLRanXXjz WgjTT2vUFRktxsaMmAHXl WFThGIMADPU7jCUrFZID6 3CZ67oVMlb5E6 cWY6T6QeVVScdvvtbbujj EP0PDYsCKYsxB13qSMvDP vrMw9by5J4s835JOGkAKY miN59Or7kbCxx AHIhkERSdP4bcevnh3fxo czrQxBuGZVfPYr5XOd2AL WnpOhdCfMgRBC6WcQ8NIN 1sDDzkJ1eyPhe dxhsqY2oHpy+MDkvMDMvM Oh0UlbudPC+NJYoIGW9yP kgBFlwPEOtbK2gPQJaI5o 6ZhNpVqP7CClr L7OrQQLzgxxbUy75xM0jM iXwJvH3LNigQ9JdhbT2YK HyyLRyAXndPBS8L64fb0L 8VPEtLDPjDZH0 xHI6qT7ruGyfdgggrRRxb DsgdmVydGljYWwtYWxpZ2 41GGSetLmyQfE5EMdwKNW iOQ90JO76iESm b2A7fNZ5Z6HfWCMkxleol jsgyCC9KQXtLDMitU17eM TxXDqkLi3fk6W4h394MMR oJGHssD42Hk0u nCkiKJDzbVSJcE7cynmew 7vhcpsoMnApPZEwLFv6RZ p2TTGhiAurLiKpJBX0XeE 4QGQ9vQWgfL5w nOifrfdtmG7aTsw+TWFsZ TwvdGQ+KICcWUJ0uQxaNO prALHhjO3aOPZjD9c8RxV vDfK1IExzR6Ia HVYcchoiNo37qD9uZiRrF vP1JFcaC0TpxgX3IZAekZ OyMEbrDEG7N31ul1P2FAG lRJGqWMG3rQB5 gJ1ldUdroxkmyNLqbEznp nTwnIdbNOmmNAkaT714TA BwzWmcPb30rKKdlAzksnX 9N4KmEhhshRP+ VZ60XISxUL24jVOhlLLvi 6dtaGw9SiBbNIXdNDG8bO kkBVuaj2VeGRDuZ48spUD ax5X0NTIcxDuh rAGcGkZswXB4iY3aDJdvx jnfg8wsfeyfPrclf3hhfj 46yE52A11vCBewTBNmWMZ zMCUiIHZhbGln ld5pqJ1nXu5+FCAoiQY4l MF5wS1rZrFsYhA4BInfR2 28ZoIzdJXvCyrpq0cul2x vzXh7HqZzRUXo svHsgNclRRQ5g6CmTp89I 29sIHdpZHRoPSIyMCUiIH EnpFjnnp8odB2bEc2+PC9 js9fovw40fU65 dHI+SFNdHFK2lNhvIZiaP JSkyY6nWShaPtA2YESeJn UmkL10xBLgLQqpZa3mcOs tfYipPT6sJDBg sexuc710MdBlo1nwFAGkz SDjLYaiSGD1O94kt2U8RS OgIDByHQO2uGA1tN5mmOe nbjogbGVmdDsg bxQhfDwvFCfzGGsbU421N IUyhSczJgXtuRTdP6bcjt GTQZ6oVknuaYZ+PHRkIHN 0eWxlPSdwYWRk qV3fHXVcA9v8LsYuNiY2G XihD8QquaI5SAIjsNDiLZ EtaLGUdT4wotfsf7leepx gIzAwMDAwMDt0 SBx9GSKkhAcwAiZrOLQ0M hD3WYS9eJSudD4csExszc dphU2cJga+RklOOjwvdGQ +UBRyCNR7dDsl TIrzHYPhgE5bTWKcL5c1L kEdRqF0PKhmB4YbbqE6VF AasVSuUTWolJSQpV3byks xq0rgubqjOrLa NUHrJKw9OVb3XOYacBgdE kNkIES4UtF3KVK0rIVjkV 1ldSlwlmytsA3iUeo+TVJ OOjwvdGQ+PHRk CVA8vArsNXbaHLRayD7bS XZtD9p6HyDoCcE8MNwkG9 DvmwV3OKPdtNRhZPEltLY AzO2tuzhtv7jp qqfkOuKkZVMoFVs2GTz6D SVksWzcWuHeJIH2JnM9VN B3nDGknM3beWqcffmaeB8 wOyc+GDA3ZDF4 UH95BH28M1EoByklwUAug +PHRhYmxlIHdpZHRoPS laGHLrEtVmcInpZJ1vEv4 yZGVyLWNvbGxh cHNl (more content not included)... Normal [facility] Coding Summary.on 02-22-2021 Coding Summary. CD:[id number] G h0bWw+PGhlYWQ+ZA5EWJM eC90dvWFxnQ9CZ6sTSF0R DDZOHNESOK1UAN4zxQK2E ZsiA8JfgxWf HuhqvHCtBW66RYm4MGK0n KkjFKyzlL9hjROdW9h1Pi FfOX01rM21PExcXNUlPlQ 3LjZpbjsgbWFy C1thViHbcJOlPxt+PHRhY mxlIHdpZHRoPScxMDAlJy WdmUyrZQ9kYh0bZFIgRUM vbGxhcHNlOiBj r8zvGMJpDZiwCY0hsJqsO 3XluJU9VJIjg2r6Vi05jW I+ADDvUHN3eYwqAAtqx98 9GvKzw3kkOMT7 cVOrBFuyXGJ0U67ns5U1B ASgZVLuRRV1mMF1aZ9gmA orvnwpU6YuzAUwMyZ6BVW 6pGYmlN8gxEwf imjojY1nIdl+B21POV2PI KSCUQ2MOdm1H3PmDjebpE I+GY00IPVeUV28mGQfeWZ nc0itgLy0FsQq XJHmDXA3oZrgFQkyb8JlR BOmL36tzDTdo8Y1MIXuiQ mfbJVeEnPkwDD6qX0aIYg onpbdp4zeqjef Bdntb5bbuj84tR04E82zG ZasBTUeWIW6WUQbBFFaeU jqyl8hjZ2iKk0+ZXepq7z ye8xrgMq8MoSb IFOnehDmzGhzOXU9n7DsX e70D4ZmlUvrx9VxInh3cc 16xMShl2E5uID6BVnoKUJ lgV3jCXpfXjJ5 EJUkQlDgfR23sIFlKJafJ y6thEfclVdyXN9vAKTace ggWEVxqD3qCIAchBCcaHq uFF0vQIIvzdxa x764CyJbVOI8LNBuvKWlB 1PliB7bVtMwDZExVOZnZ2 BcvIApHLauL210DNsuLwB 6SLQxnlAtO9Lk ZGLwwOtgPcZ6j3Q4Nj9Ia 4UeunwkAEA7NSsjUGS6Uh V8WlGqVmV9A4TcSdj7JAN jpBatKG4oQ2Vu KLTpbkamablstIQ6RHVzN ZBoaM81xTWxXKmxOo6en3 F4z608HAGcBWBifP57Gi1 udDogMTBwdCBU iZ6bedshz8gcsmpbOwDxM XJsIFr3PMz0HCZidQcnDi VkLDK3JpV2XKF0xDPeoZ6 ibDsgqnnknB6j Oyc+S27bcY5rOIG2YXZ4t bdfWCDyibXgSX38PU72M4 RyPjwvdGFibGU+PGRpdiB wwFmiQG1cGpPt f7hnm4HyHClwL4OzTPKnI FapJwg2JXCuPVG6pLP6xR 5pDPKzUWvxh4F8fJH6V9A kbsVyhu2nf1zg CJArHStfK10rcPZbj4S0O UJqbDP7GQYsoPykYpLrtP 93Oyc+OPBtlCsiw5XaFzp ka4gxr5doqZt7 PlHaYPAhomOkkZhnUOW2b 6GxKq03M37xKKdpKTVuEG UlKGYmAKFpnOfbmb3bwA3 wIi8+PGNvbCB3 iMV9wW2pTUXxRuF7TAffO 946BxEnwWIlXgius7ktt6 dwgLc9XxVlXRZahoSqzKr iSIH2c9WqBb05 X16gNMarWFDyHAWaOELoQ DJgjOtlfw0lrA9sXt8+PC 6mq3iraz95bF79bAX+PHR tDIM9qKkdRWhd QDHosU5qZJmmKwG4ECDgF ePlqA05xLMeNGbeEa1ctK nlkLhyAX7qVEEjwicop05 8BrDjd3hyEZDr iUSyUFxnPIG0L94yj9L1G RStRGCrSSH5eLN8iJ9zpW lnbjogbGVmdDsgdmVydGl tKSpsZUuzN873 IHRvcDsnPlBhdGllbnQgT zCuINf4U4RdHok0KOFfiB trOD4grRRfWTsiYr7wkWq zbRbxQX4hUUVc oqqtx087JzRub0ckEAIcg AGnETcgBXE6G16vb4I3JZ HeWBZxSRW1aNG3eP4xsBl nbjogbGVmdDsg wjAyvBhuZLxbQLrtW113M HRvcDsnPkJpcnRoIERhdG J5WH51LD46nIFqd4O4bXI 1D1MjPKPzurmr muddeAW8DLGzEORxbE11P d9smLywYh5uPENwKRM5QA AbhFRyY2FraV3yKxMtXTT mIJNcO1DkkXMl OVlfL232SAdkSrH6DBSrz nWwR8IoMDGgkLoyWsD5m1 K7Sg4YZ0L2BZ35YU44hWW hc1T8gHD9D0Ci SUJyymrheulcdAH4BZDrU CRnxT10Pz8aqHyrBp3pYG AkQTY1UZHoiMEpL4UjbI8 yOiAjMDAwMDAw W2SczTObSDjwF720IBpbL kE5DXWwlfBiM7QaTCIrmF bqInH6b6F2Te8PPKq5GY0 3SA92hFAwk3G9 mSL8G2VzRMVbhjdsznzdj QB9MFSqIRDziZ92Bk2ieS tkIu2jQRPzXOD3WQYsyUU sE1DdaL9mIyAl RQHtYJQdO5IfrDZeUHjkI 343UKdzNmM5NKEisiGwG6 ByIPTeqGsbIrU5y2B1Hd7 MEHQtQB21JHF4 sKO2FD13HL70I6DtDfbih GFibGU+PHRhYmxlIHdpZH RoPScxMDAlJyBzdHlsZT0 lOk1vHTVtOLMe jWuraQOeWzHyk6nkXIWjB NdyWD9rfUweI7LviBO4VG Nax3q1Tl18J57iN1RfiKP +WKCvnCM6rKI3 tK5jWdRrDvJ0PXhaN770I zVlaVPbAymcp6cbf9jbpG w3ReH1NJErirPizZorCCV 7y4CrBa03V35z IHdpZHRoPSIxNSUiIHZhb Ywlek3fgB5rPf2+PGNvbC A4yOQ8wU4zMlDrTjS4KWx aX930GoTfzRMk Fizlz8xua7fngQw4YaPsG YQlisKwwIjeMSQ2c2LfOz 95R6GrdNqzz9WuXtr5bn3 3yTPcv9B1kCA7 W9DlMSKhxkcxbFEktAzlQ H9sQBXeemvkVZIxiO5zUY BnS8w5FzSoEdZ2WYknQ9D eykZ9WEGidRWm QGbaBYF6I63by2Q5WUEkF OMrVCM0kDM5eF3bgQpybn ogbGVmdDsgdmVydGljYWw xKAegP178LXDc gXflDPAtiE4cOTHjgFPtv RjxWZ4cJHReqgljFvBOOg ULPfXIBFKVR3kLCeQXKX7 1JN43jQMjr1M0 rUR9B2XpOAKkvafrgoouh AA5RTJfHFIfkH08dNTfBR jlEb4ro6M3k372JAHrODB kyD59Dc3wkZoo IYMgsTIFqG1zqcufi7fcl oqyTsNyZFVsWSi5NMe1QL ToiWbbUiIkFOF6TxQ6EZS 6tEQrfS1csRmy yvdvzK0wNja+MDkvMDMvM Ce1QwmqnEH+UANpJRP4qS xgMSbeBKEhfL3yRMApD1v 8HeJlTkP6FEli C2FzDDIflacuJx44dG2iD fXtUqN2HUsoC6AaqoX9BU XqhMLaFBmwHPT2S04zj5B 0LYOnVAKtXFY4 lRN3dU5spPpjdxavqGCuy DsgdmVydGljYWwtYWxpZ2 19HBLimIoqLrS1DDxcQPF yNN59YZ25eNJc l2X2rNV9H6UvZYRtjiofh zwtnRJ8VNTjJVTxlR60qZ NhXJxpZt5lz0H0f342QHY rCDMddU29Xe7q tSwoQWYmuRGEnU3ahbugv 8egljncRlWkWERaDDw0KG d0PTDxfGofFcZwMKW9FhF 1ZRJ4kYItpA5q jJsmowdrbZ9tKad+TWFsZ TwvdGQ+ERKlLUJ5vSroOQ ouEUBplW9zFNCdR8n8FcK vBxI3DDdrG0Ou WZPpsxkaSv92sZ5aBvEgE tB0SEipR3TdgnT5QQTxyO BmGTocGFC9G38ys3A8DFX wEEDtAXE5bLJ1 cU6tzBuuwcbcnGUseImlm zXpyHgxNDpjJNtcU234BJ RztPzkQn26mDAjnVlhfsY 4Y7WbMchlvSR+ YV75BLRyXY76xRIhiJSod 9edmMy1XqXkVHEeSJA3eD yeWDgst9LhXKUiX38qjFP yh3B3CDEodYvr cUGxPlQxqQY8gR7jDJyiz dduj3ojflfhNqnjd3wyqq 66lL83L73tMMnrAWUnJDJ zMCUiIHZhbGln gb1xgN0hWi2+MVLgpQR0a CL2iG7lRpQcYiS7DZcdO9 00JeKpsVLtDrzip5wlt7p fzAf1ZuFnWMTe iaBfdBmeWLB3f1HhCp52F 29sIHdpZHRoPSIyMCUiIH YcmMyvzl6qkH6fGf6+PC9 il2dmat34mP72 dHI+KFVkHFR1uNzfNAyaX JFotI0wUTzvXxN2GCAaAf PciW03uXGgOBwyKb6klKj ezKtxMP0aLXNv rbapm040WxUpe2zvGMEjg SRvDSymMDM6O89qk9V2EP RmYQXkRDW9gVW4eV6kxXi nbjogbGVmdDsg vnQskEicQJqbRZzbQ583T FDdsDaoBfWldRRjZ5mats ISHC7hDmcktQB+PHRkIHN 0eWxlPSdwYWRk lC7vYMQoB5v7ZaPxXgJ4X RwvH5CczxB1KGCrwVAyJF IeyWNIaQ3vnohmy1jzghv gIzAwMDAwMDt0 VBc4HJGafQolCaLbWBY9V gM3UQV3vDNrfU1shSbslz hbgO9hCdj+RklOOjwvdGQ +RXDjWSL7fChm YDikMZFwrD2yLSZsW1z9N dVkSbE0LLceQ1BdqdK3OC NduLHlRZXbcSSBiG3elea dc7exlimiLrDe LCEaBQl0ERv8PGBivXprF xWyZAD5HeN4ECK9rYNnuV 5ioCacuoxvcP7mBhm+TVJ OOjwvdGQ+PHRk NKH2mMqoPIxuPCLkhH7iL HWrL4p9PtOfPnD6SUosM9 VkfpT9PMCzlRUyOFYhbGH NoF3xocrlx2ei ajefJfXlLLUiXOu4WNi2K XWzxZmrCkUeRJW9GhN3FU F1qLHscH0iqDqpvejlfL0 wOyc+CFM9BMN4 BP52CA56Q1AdNsftnXVld +PHRhYmxlIHdpZHRoPS gpWPFpHbXcoAezER1eSz1 yZGVyLWNvbGxh [facility] (more content not included)... Normal [facility] Patient Eval Forms Officeon 02-21-2021 Patient Eval Forms Office [id number]# 1.00CD:127 Normal [facility] Consenton 02-20-2021 Consent [id number]#1 .00CD:127 Normal [facility] Patient Eval Forms Officeon 02-20-2021 Patient Eval Forms Office [id number]#1 .00CD:127 Normal [facility] Patient History Officeon Patient History Office [id number]# 1.00CD:127 Normal [facility] Physician Orderon 02-16-2021 Physician Order [id number]# 1.00CD:127 Normal [facility] Sleep Office/Clinic Noteon 0 02-15-2021 Sleep Office/Clinic Note History of Present Illness Calling in today to establish care for possible obstructive sleep apnea. Reports that he was told by his and family that he snores loudly at night and stops breathing frequently throughout the night. He also has significant fatigue and daytime sleepiness. The patient reports that his weight has been relatively steady over the past few years. He typically consumes approximately 4 beers on a nightly basis. He has taken medications for depression and previously had taken medications for back spasm with muscle relaxant but not any recently. Review of Systems Constitutional: no fever, no chills, no sweats, no weakness Skin: no Jaundice, no rash, no lesions, no petechiae ENT: no ear pain, no sore throat, no congestion, no hoarseness Respiratory: Denies shortness of breath, cough or wheezing Cardiovascular: no chest pain, no palpitations, no edema Gastrointestinal: no nausea, no vomiting, no diarrhea, no GI bleeding Genitourinary: no dysuria, no hematuria, no discharge, no pain Musculoskeletal: no back pain, no trauma Neurologic: no headache, no dizziness, no numbness, no weakness Psychiatric: no irritability, no mood swings/depression. Heme/Lymph: no bleeding tendency, no bruising tendency, no petechiae, no swollen nodes Allergy/Immunologic: no seasonal allergies, no food allergies, no recurrent infections, no impaired immunity Additional ROS info: Except as noted in the above Review of Systems and in the History of Present Illness all other systems have been reviewed and are negative or noncontributory. Physical Exam Vitals & Measurements HT: 185.4 cm HT: 185.42 cm WT: 83.9 kg WT: 83.91 kg BMI: 24.41 Assessment/Plan 1. LINETTE (obstructive sleep apnea) (G47.33: Obstructive sleep apnea (adult) (pediatric)) Highly likely given the patient's symptoms, alcohol consumption and risk factors. The etiology of obstructive sleep apnea and methods of diagnoses and treatment were discussed with the patient in details. He is agreeable to investigation of treatment if clinically indicated. I will arrange for a sleep study and see him back after his testing is completed. He will call me back in the meantime if any issues. This visit was performed using telemedicine as a way of communication due to the patient request and consent. The total time spent with the patient was 21 minutes. Follow-up With When Contact Information Kirk MOREAU, Beth Ramirez, PUL, LUZ MARIA [address] [facility] [place] [address]- Additional Instructions: after his testing is completed Problem List/Past Medical History Ongoing Smoker Historical No qualifying data Procedure/Surgical History broke leg. Medications Trinidad 325 mg-5 mg oral tablet, 1 tab(s), Oral, q4hr, PRN Allergies No Known Medication Allergies Social History Alcohol Substance Abuse Tobacco Immunizations Vaccine Date Status Comments SARS-CoV-2 (COVID-19) mRNA BNT-162b2 vax 09/30/2020 Given Prophylaxis SARS-CoV-2 (COVID-19) mRNA BNT-162b2 vax 09/09/2020 Given Prophylaxis diphtheria/pertussis, acel/tetanus adult 12/05/2019 Given Normal [facility] Comment on above: Result Comment: Elec tronically Signed By: Beth Bradley MD\.br\Date and Time Signed: 02/15/21 14:[address] CERVICAL SPINE WO CONTRMARY Ton 08-01-2020 CT CERVICAL SPINE WO CONTRAST EXAMINATION: CT OF THE CERVICAL SPINE WITHOUT CONTRAST 08/01/2020 1:09 pm TECHNIQUE: CT of the cervical spine was performed without the administration of intravenous contrast. Multiplanar reformatted images are provided for review. Dose modulation, iterative reconstruction, and/or weight based adjustment of the mA/kV was utilized to reduce the radiation dose to as low as reasonably achievable. COMPARISON: None. HISTORY: ORDERING SYSTEM PROVIDED HISTORY: fall TECHNOLOGIST PROVIDED HISTORY: fall Decision Support Exception->Emergency Medical Condition (MA) Reason for Exam: fall FINDINGS: BONES/ALIGNMENT: There is no acute fracture or traumatic malalignment. DEGENERATIVE CHANGES: Multilevel degenerative disc disease and facet osteoarthritis. Degenerative disc disease is most significant (severe) at C5-6 and to a lesser extent C4-5 and C3-4. SOFT TISSUES: There is no prevertebral soft tissue swelling. IMPRESSION: No acute abnormality of the cervical spine. Multilevel degenerative changes. Interpreted by: Chino Mcqueen MD Signed by: Chino Mcqueen MD 08/01/20 Final result Normal [facility] No acute abnormality of the cervical spine. Multilevel degenerative changes. [employer] [facility], [facility] Incoming Radiant Results From [employer] - 08/01/2020 1:22 PM EST EXAMINATION: CT OF THE CERVICAL SPINE WITHOUT CONTRAST 08/01/2020 1:09 pm TECHNIQUE: CT of the cervical spine was performed without the administration of intravenous contrast. Multiplanar reformatted images are provided for review. Dose modulation, iterative reconstruction, and/or weight based adjustment of the mA/kV was utilized to reduce the radiation dose to as low as reasonably achievable. COMPARISON: None. HISTORY: ORDERING SYSTEM PROVIDED HISTORY: fall TECHNOLOGIST PROVIDED HISTORY: fall Decision Support Exception->Emergency Medical Condition (MA) Reason for Exam: fall FINDINGS: BONES/ALIGNMENT: There is no acute fracture or traumatic malalignment. DEGENERATIVE CHANGES: Multilevel degenerative disc disease and facet osteoarthritis. Degenerative disc disease is most significant (severe) at C5-6 and to a lesser extent C4-5 and C3-4. SOFT TISSUES: There is no prevertebral soft tissue swelling. IMPRESSION: No acute abnormality of the cervical spine. Multilevel degenerative changes. [place], [place] EXAMINATION: CT OF THE CERVICAL SPINE WITHOUT CONTRAST 08/01/2020 1:09 pm TECHNIQUE: CT of the cervical spine was performed without the administration of intravenous contrast. Multiplanar reformatted images are provided for review. Dose modulation, iterative reconstruction, and/or weight based adjustment of the mA/kV was utilized to reduce the radiation dose to as low as reasonably achievable. COMPARISON: None. HISTORY: ORDERING SYSTEM PROVIDED HISTORY: fall TECHNOLOGIST PROVIDED HISTORY: fall Decision Support Exception->Emergency Medical Condition (MA) Reason for Exam: fall FINDINGS: BONES/ALIGNMENT: There is no acute fracture or traumatic malalignment. DEGENERATIVE CHANGES: Multilevel degenerative disc disease and facet osteoarthritis. Degenerative disc disease is most significant (severe) at C5-6 and to a lesser extent C4-5 and C3-4. SOFT TISSUES: There is no prevertebral soft tissue swelling. [place], [place] CT HEAD WO CONTRASTon 2020 CT HEAD WO CONTRAST EXAMINATION: CT OF THE HEAD WITHOUT CONTRAST 08/01/2020 1:09 pm TECHNIQUE: CT of the head was performed without the administration of intravenous contrast. Dose modulation, iterative reconstruction, and/or weight based adjustment of the mA/kV was utilized to reduce the radiation dose to as low as reasonably achievable. COMPARISON: None. HISTORY: ORDERING SYSTEM PROVIDED HISTORY: fall TECHNOLOGIST PROVIDED HISTORY: fall Decision Support Exception->Emergency Medical Condition (MA) Reason for Exam: fall Initial evaluation. FINDINGS: Streak artifact from dental amalgam limits evaluation of the posterior fossa. BRAIN/VENTRICLES: There is no acute intracranial hemorrhage, mass effect or midline shift. No abnormal extra-axial fluid collection. The mansfield-white differentiation is maintained without evidence of an acute infarct. There is no evidence of hydrocephalus. ORBITS: The visualized portion of the orbits demonstrate no acute abnormality. SINUSES: The visualized paranasal sinuses and mastoid air cells demonstrate no acute abnormality. SOFT TISSUES/SKULL: No acute abnormality of the visualized skull or soft tissues. IMPRESSION: 1. Streak artifact from dental amalgam limits evaluation of the posterior fossa. 2. No convincing acute intracranial abnormality. Interpreted by: Randolph Roman MD Signed by: Randolph Roman MD 08/01/20 Final result Normal [facility], [facility] Incoming Radiant Results From [employer] - 08/01/2020 1:20 PM EST EXAMINATION: CT OF THE HEAD WITHOUT CONTRAST 08/01/2020 1:09 pm TECHNIQUE: CT of the head was performed without the administration of intravenous contrast. Dose modulation, iterative reconstruction, and/or weight based adjustment of the mA/kV was utilized to reduce the radiation dose to as low as reasonably achievable. COMPARISON: None. HISTORY: ORDERING SYSTEM PROVIDED HISTORY: fall TECHNOLOGIST PROVIDED HISTORY: fall Decision Support Exception->Emergency Medical Condition (MA) Reason for Exam: fall Initial evaluation. FINDINGS: Streak artifact from dental amalgam limits evaluation of the posterior fossa. BRAIN/VENTRICLES: There is no acute intracranial hemorrhage, mass effect or midline shift. No abnormal extra-axial fluid collection. The mansfield-white differentiation is maintained without evidence of an acute infarct. There is no evidence of hydrocephalus. ORBITS: The visualized portion of the orbits demonstrate no acute abnormality. SINUSES: The visualized paranasal sinuses and mastoid air cells demonstrate no acute abnormality. SOFT TISSUES/SKULL: No acute abnormality of the visualized skull or soft tissues. IMPRESSION: 1. Streak artifact from dental amalgam limits evaluation of the posterior fossa. 2. No convincing acute intracranial abnormality. [facility], [place] EXAMINATION: CT OF THE HEAD WITHOUT CONTRAST 08/01/2020 1:09 pm TECHNIQUE: CT of the head was performed without the administration of intravenous contrast. Dose modulation, iterative reconstruction, and/or weight based adjustment of the mA/kV was utilized to reduce the radiation dose to as low as reasonably achievable. COMPARISON: None. HISTORY: ORDERING SYSTEM PROVIDED HISTORY: fall TECHNOLOGIST PROVIDED HISTORY: [facility] Decision Support Exception->Emergency Medical Condition (MA) Reason for Exam: fall Initial evaluation. FINDINGS: Streak artifact from dental amalgam limits evaluation of the posterior fossa. BRAIN/VENTRICLES: There is no acute intracranial hemorrhage, mass effect or midline shift. No abnormal extra-axial fluid collection. The mansfield-white differentiation is maintained without evidence of an acute infarct. There is no evidence of hydrocephalus. ORBITS: The visualized portion of the orbits demonstrate no acute abnormality. SINUSES: The visualized paranasal sinuses and mastoid air cells demonstrate no acute abnormality. SOFT TISSUES/SKULL: No acute abnormality of the visualized skull or soft tissues. [facility], [place] 1. Streak artifact from dental amalgam limits evaluation of the posterior fossa. 2. No convincing acute intracranial abnormality. [place], [place] CT THORACIC SPINE WO CONTRAS Ton 08-01-2020 CT THORACIC SPINE WO CONTRAST EXAMINATION: CT OF THE THORACIC SPINE WITHOUT CONTRAST 08/01/2020 1:09 pm: TECHNIQUE: CT of the thoracic spine was performed without the administration of intravenous contrast. Multiplanar reformatted images are provided for review. Dose modulation, iterative reconstruction, and/or weight based adjustment of the mA/kV was utilized to reduce the radiation dose to as low as reasonably achievable. COMPARISON: None. HISTORY: ORDERING SYSTEM PROVIDED HISTORY: fall TECHNOLOGIST PROVIDED HISTORY: fall Reason for Exam: fall Upper back pain status post fall. FINDINGS: BONES/ALIGNMENT: Vertebral body heights maintained. No fracture. No traumatic subluxation or dislocation. Mild dextroconvex curvature, within normal limits. DEGENERATIVE CHANGES: No severe disc height loss. Multilevel vacuum disc phenomenon mid and lower thoracic spine. No significant neural foraminal narrowing. SOFT TISSUES: No paraspinal mass is seen. IMPRESSION: No acute fracture or malalignment of the thoracic spine. Interpreted by: Panfilo Middleton MD Signed by: Panfilo Middleton MD 08/01/20 Final result Normal [facility], [place] Incoming Radiant Results From [employer] - 08/01/2020 1:29 PM EST EXAMINATION: CT OF THE THORACIC SPINE WITHOUT CONTRAST 08/01/2020 1:09 pm: TECHNIQUE: CT of the thoracic spine was performed without the administration of intravenous contrast. Multiplanar reformatted images are provided for review. Dose modulation, iterative reconstruction, and/or weight based adjustment of the mA/kV was utilized to reduce the radiation dose to as low as reasonably achievable. COMPARISON: None. HISTORY: ORDERING SYSTEM PROVIDED HISTORY: fall TECHNOLOGIST PROVIDED HISTORY: fall Reason for Exam: fall Upper back pain status post fall. FINDINGS: BONES/ALIGNMENT: Vertebral body heights maintained. No fracture. No traumatic subluxation or dislocation. Mild dextroconvex curvature, within normal limits. DEGENERATIVE CHANGES: No severe disc height loss. Multilevel vacuum disc phenomenon mid and lower thoracic spine. No significant neural foraminal narrowing. SOFT TISSUES: No paraspinal mass is seen. IMPRESSION: No acute fracture or malalignment of the thoracic spine. [place], [place] EXAMINATION: CT OF THE THORACIC SPINE WITHOUT CONTRAST 08/01/2020 1:09 pm: TECHNIQUE: CT of the thoracic spine was performed without the administration of intravenous contrast. Multiplanar reformatted images are provided for review. Dose modulation, iterative reconstruction, and/or weight based adjustment of the mA/kV was utilized to reduce the radiation dose to as low as reasonably achievable. COMPARISON: None. HISTORY: ORDERING SYSTEM PROVIDED HISTORY: fall TECHNOLOGIST PROVIDED HISTORY: fall Reason for Exam: fall Upper back pain status post fall. FINDINGS: BONES/ALIGNMENT: Vertebral body heights maintained. No fracture. No traumatic subluxation or dislocation. Mild dextroconvex curvature, within normal limits. DEGENERATIVE CHANGES: No severe disc height loss. Multilevel vacuum disc phenomenon mid and lower thoracic spine. No significant neural foraminal narrowing. SOFT TISSUES: No paraspinal mass is seen. [facility] [place] No acute fracture or malalignment of the thoracic spine. [facility] [place] X[facility] ELBOW LEFT (MIN 3 VIEWS)o n 08-01-2020 XR ELBOW LEFT (MIN 3 VIEWS) EXAMINATION: THREE XRAY VIEWS OF THE LEFT ELBOW 08/01/2020 12:51 pm COMPARISON: None. HISTORY: ORDERING SYSTEM PROVIDED HISTORY: trauma TECHNOLOGIST PROVIDED HISTORY: trauma Reason for Exam: fall Acuity: Acute Type of Exam: Initial FINDINGS: No acute osseous abnormality seen of the left elbow. There is minimal degenerative changes of the left elbow. No evidence of dislocation. The soft tissues demonstrate no acute abnormality. IMPRESSION: 1. No acute osseous abnormality identified of the left elbow. 2. Minimal degenerative changes. Interpreted by: Randolph Roman MD Signed by: Randolph Roman MD 08/01/20 Final result Normal [facility] Cl[facility], [facility] Incoming Radiant Results From [employer] - 08/01/2020 1:11 PM EST EXAMINATION: THREE XRAY VIEWS OF THE LEFT ELBOW 08/01/2020 12:51 pm COMPARISON: None. HISTORY: ORDERING SYSTEM PROVIDED HISTORY: trauma TECHNOLOGIST PROVIDED HISTORY: trauma Reason for Exam: fall Acuity: Acute Type of Exam: Initial FINDINGS: No acute osseous abnormality seen of the left elbow. There is minimal degenerative changes of the left elbow. No evidence of dislocation. The soft tissues demonstrate no acute abnormality. IMPRESSION: 1. No acute osseous abnormality identified of the left elbow. 2. Minimal degenerative changes. [facility] [place] EXAMINATION: THREE XRAY VIEWS OF THE LEFT ELBOW 08/01/2020 12:51 pm COMPARISON: None. HISTORY: ORDERING SYSTEM PROVIDED HISTORY: trauma TECHNOLOGIST PROVIDED HISTORY: trauma Reason for Exam: fall Acuity: Acute Type of Exam: Initial FINDINGS: No acute osseous abnormality seen of the left elbow. There is minimal degenerative changes of the left elbow. No evidence of dislocation. The soft tissues demonstrate no acute abnormality. [employer] 1. No acute osseous abnormality identified of the left elbow. 2. Minimal degenerative changes. [facility] [place] Vital Signs Date Time Vital Sign Value Performing Clinician Facility 06-06-2023 10:15-0500 Body height 185.42 cm Adriana Mejia Other [facility] Other 06-06-2023 10:15-0500 Body mass index (BMI) [Ratio] 25.54 kg/m2 Adriana Mejia Other [facility] Other 06-06-2023 10:15-0500 Body weight 87.82 kg Adriana Mejia Other [facility] Other 06-06-2023 10:15-0500 Diastolic blood pressure 70 mm[Hg] Adriana Mejia Other [facility] Other 06-06-2023 10:15-0500 Systolic blood pressure 159 mm[Hg] Adriana Mejia Other [facility] Other 04-19-2023 09:30-0400 Body height 185.42 cm Adriana Mejia Other [facility] Other 04-19-2023 09:30-0400 Body mass index (BMI) [Ratio] 24.7 kg/m2 Adriana Mejia Other [facility] Other 04-19-2023 09:30-0400 Body weight 84.91 kg Adriana Mejia Other [facility] Other 04-19-2023 09:30-0400 Diastolic blood pressure 77 mm[Hg] Adriana Mejia Other [employer] [facility] Other 04-19-2023 09:30-0400 Systolic blood pressure 159 mm[Hg] Adriana Mejia Other [facility] Other 01-06-2022 07:59-0400 Body temperature 97.7 [degF] Kirill Simon [facility] 01-06-2022 07:59-0400 Diastolic blood pressure 88 mm[Hg] Kirill Simon [facility] 01-06-2022 07:59-0400 Heart rate 60 /min Kirill Simon [facility] 01-06-2022 07:59-0400 Respiratory rate 15 /min Kirill Simon [facility] 01-06-2022 07:59-0400 SaO2% (BldA) [Mass fraction] 98 % Kirill Simon [facility] 01-06-2022 07:59-0400 Systolic blood pressure 202 mm[Hg] Kirill Simon [facility] 08-01-2020 13:03-0500 Body Temperature 97.59 [degF] [facility], [place] 08-01-2020 12:35-0500 BP Diastolic 73 mm[Hg] [facility] , [place] 08-01-2020 12:35-0500 BP Systolic 149 mm[Hg] [facility] , [place] 08-01-2020 12:35-0500 Pulse (Heart Rate) 76 /min [facility], [place] 08-01-2020 12:35-0500 Pulse Oximetry 99 % [facility] , [place] 08-01-2020 12:35-0500 Respiratory Rate 18 /min [facility] [place] Encounters Encounter Date Encounter Type Care Provider Facility Start: 06-06-2023 End: 06-06-2023 ambulatory Adriana Mejia Other [facility] Other Start: 06-06-2023 Office outpatient vi sit 15 minutes Adriana Mejia [facility] Start: 04-25-2023 End: 04-25-2023 ambulatory Adriana Mejia Other [facility] Other Start: 04-25-2023 Telephone encounter Adriana Mejia [facility] Start: 04-19-2023 End: 04-19-2023 ambulatory Adriana Mejia Other [facility] Other Start: 04-19-2023 Patient encounter procedure Adriana Mejia [facility] Start: 01-13-2022 End: 01-14-[address] ADRIANA MEJIA Facility:[facility] Start: 01-06-2022 End: 01-06-2022 Emergency department patient visit Kirill Simon [facility] Start: 01-06-2022 End: 01-06-[address] LENA MARIE Facility:[facility] Start: 01-03-2022 End: 01-03-2022 Patient encounter procedure ADRIANA MEJIA [facility] Start: 10-09-2021 End: 10-09-2021 Patient encounter procedure Beth Bradley [facility] Start: 08-01-2020 End: 08-01-2020 Emergency department patient visit TOMIDagoberto ESTRELLA [facility] Start: 08-01-2020 End: 08-01-2020 Emergency department patient visit Tomi Estrella Work Phone: [facility] ED Comment on above: Closed head injury, initial encounter (Primary Dx) Procedures Date Procedure Procedure Detail Performing Clinician Start: 08-01-2020 Ct thoracic spine w/ o contrast material George Alcala Work Phone: Start: 08-01-2020 Ct cervical spine w/ o contrast material George Alcala Work Phone: Start: 08-01-2020 Ct head/brain w/o contrast material George Alcala Work Phone: Start: 08-01-2020 Radex elbow complete minimum 3 views George Alcala Work Phone: broke leg Beth Fischerd Plan of Treatment Date Care Activity Detail Author Start: 12-04-2029 DTaP/Tdap/Td vaccine (2 - Td) DTaP/Tdap/Td vaccine (2 - Td) [place], [place] Start: 03-01-2020 Influenza vaccination Flu vaccine (# 1) [place], [place] Start: 2018 Pneumococcal 65+ yea rs Vaccine (1 of 1 - PPSV23) Pneumococcal 65+ years Vaccine (1 of 1 - PPSV23) [place], [place] Start: 2003 Screening for malign ant neoplasm of colon Colon cancer screen colonoscopy [place], [place] Start: 2003 Shingles Vaccine (1 of 2) Shingles V accine (1 of 2) [place], [place] Start: 1993 Lipid panel Lipid screen [place], [place] Start: 1953 Abdominal aortic ane urysm screening AAA screen [place], [place] Start: 1955 Hepatitis C screening Hepatitis C sc reen [place], [place] Immunizations Immunization Date Immunization Notes Care Provider [facility] 04-19-2023 influenza, high dose seasonal, preservative-free Adriana Mejia Other [facility] Other 09-30-2020 COVID-19, mRNA, LNP- S, PF, 30 mcg/0.3 mL dose; Translations: [[employer] COVID-19 Vaccine] Beth Kirk [facility] Comment on above: Reason for Medicatio n: Prophylaxis 09-09-2020 COVID-19, mRNA, LNP- S, PF, 30 mcg/0.3 mL dose; Translations: [Pfizer-BioNTech COVID-19 Vaccine] [employer] [facility] Comment on above: Reason for Medicatio n: Prophylaxis 12-05-2019 tetanus toxoid, reduced diphtheria toxoid, and acellular pertussis vaccine, adsorbed; Translations: [Adacel (Tdap)] [employer] [facility] 04-27-2019 influenza virus vaccine, split virus (incl. purified surface antigen) Adriana Mejia Other [facility] Other 04-27-2019 pneumococcal conjuga te vaccine, 13 valent Adriana Mejia Other [employer] Other 07-08-2017 diphtheria, tetanus toxoids and acellular pertussis vaccine, unspecified formulation Adriana Mejia Other [employer] Other Payers Date Payer Category Payer Medicare [id number] 1961 Private Health Insurance [id number] 1955 Unknown [id number] 1955 Unknown [id number] 1955 Unknown [id number] Social History Date Type Detail Facility Start: 08-01-2020 Tobacco smoking stat us [facility] Current every day smoker [place], [place] History of tobacco use Cigarette Smoker M [place], [place] Start: 08-01-2020 Tobacco use and exposure Never used [place], [place] Start: 08-01-2020 Alcohol intake Current drinke r of alcohol (finding) [place], [place] Start: 08-01-2020 Alcohol Comment daily 3-4 beers per day [place], [place] Sex Assigned At Not on file [place] Tobacco [facility] Comment on above: smokes 1 ppd. Sex Assigned At Male [facility] Functional Status Date Assessment Result Facility 01-06-2022 Functional Status N/A [facility] Evaluation note 06-06-2023 Note Date & Type Note Facility 06-06-2023 Evaluation note Encounter Date Diagnosis Assessment Notes May, Removal of michelle (ICD-10 - Z48.02) Pt tolerated staple removal well. Pt denies LOC or fall without reason. He slipped in slippers on an icy patio with dog outside. Steristrips applied.. Keep area clean. [employer] Other Evaluation note 04-19-2023 Note Date & Type Note Facility 04-19-2023 Evaluation note Encounter Date Diagnosis Assessment Notes Mar, Medicare annual wellness visit, subsequent (ICD-10 - Z00.00) Personalized health advice was given to the beneficiary including a written plan for screenings discussed and provided. Advanced care planning reviewed and/or information given as requested. Additional counseling was provided here today in regards to, [ ]. The above visit was performed by [ ], under direct supervision of [ ]. Document reviewed and amended by provider signed below. Mar, Essential (primary) hypertension (ICD-10 - I10) Elevated today. Will increase dose of losartan. Continue active lifestyle Mar, Screening PSA (prostate specific antigen) (ICD-10 - Z12.5) Mar, Fatigue, unspecified type (ICD-10 - R53.83) Notes more frequent naps - will assess thyroid w labs. Mar, Nicotine dependence, cigarettes, uncomplicated (ICD-10 - F17.210) advised to quit smoking. Agrees to LDCT at [facility] Other Evaluation + Plan note 01-06-2022 Note Date & Type Note Facility 01-06-2022 Evaluation + Plan note Extrac pam from: Title:ED Note Author:Ramon Gauthier PA-C te:01/06/22 Otitis externa (H60.90: Unsp ecified otitis externa, unspecified ear) Orders: ciprofloxacin-dexamethasone otic, 4 drop(s), Ear-Right, BID for 7 day(s), 10 mL, Refill(s) 0 [facility] Discharge instructions 01-06-2022 Note Date & Type Note Facility 01-06-2022 Hospital Discharg e instructions Patient Education 01/06/2022 08:25:56 Otitis Externa Otitis Externa Otitis externa is an infection of the outer ear canal. The outer ear canal is the area between the outside of the ear and the eardrum. Otitis externa is sometimes called swimmer's ear. What are the causes? Common causes of this condition include: Swimming in dirty water. Moisture in the ear. An injury to the inside of the ear. An object stuck in the ear. A cut or scrape on the outside of the ear. What increases the risk? You are more likely to develop this condition if you go swimming often. What are the signs or symptoms? The first symptom of this condition is often itching in the ear. Later symptoms of the condition include: Swelling of the ear. Redness in the ear. Ear pain. The pain may get worse when you pull on your ear. Pus coming from the ear. How is this diagnosed? This condition may be diagnosed by examining the ear and testing fluid from the ear for bacteria and funguses. How is this treated? This condition may be treated with: Antibiotic ear drops. These are often given for 10 14 days. Medicines to reduce itching and swelling. Follow these instructions at home: If you were prescribed antibiotic ear drops, use them as told by your health care provider. Do not stop using the antibiotic even if your condition improves. Take bksn-tyw-veipfxb and prescription medicines only as told by your health care provider. Avoid getting water in your ears as told by your health care provider. This may include avoiding swimming or water sports for a few days. Keep all follow-up visits as told by your health care provider. This is important. How is this prevented? Keep your ears dry. Use the corner of a towel to dry your ears after you swim or bathe. Avoid scratching or putting things in your ear. Doing these things can damage the ear canal or remove the protective wax that lines it, which makes it easier for bacteria and funguses to grow. Avoid swimming in lakes, polluted water, or pools that may not have enough chlorine. Contact a health care provider if: You have a fever. Your ear is still red, swollen, painful, or draining pus after 3 days. Your redness, swelling, or pain gets worse. You have a severe headache. You have redness, swelling, pain, or tenderness in the area behind your ear. Summary Otitis externa is an infection of the outer ear canal. Common causes include swimming in dirty water, moisture in the ear, or a cut or scrape in the ear. Symptoms include pain, redness, and swelling of the ear. If you were prescribed antibiotic ear drops, use them as told by your health care provider. Do not stop using the antibiotic even if your condition improves. This information is not intended to replace advice given to you by your health care provider. Make sure you discuss any questions you have with your health care provider. Document Released: 06/17/2006 Document Revised: 11/21/2018 Document Reviewed: 11/21/2018 [employer] Patient Education 2020 [employer] 01/06/2022 08:25:56 Ear Drops, Adult Ear Drops, Adult You have been diagnosed with a condition that requires you to put drops of medicine into your ears. Ear drops are a medicine that is placed in the ear. This sheet gives you information about how to use ear drops. Your health care provider may also give you more specific instructions. Supplies needed: Cotton ball. Medicine. How to put ear drops into your ear 1.Wash your hands thoroughly with soap and water. 2.Make sure your ears are clean and dry. If there is any ear wax or drainage at the outermost portion of the ear canal, wipe it out gently with a cotton-tipped applicator. 3.Warm up the medicine by holding it in the palm of your hand for a few minutes. 4.Shake the medicine if it is a suspension. 5.Use the dropper to draw up the medicine. 6.Hold the dropper above your ear canal and put the drops in the affected ear as instructed. Do not put the dropper into your ear at any time. It may help to pull the outer flap of the ear up and back while you put the drops in. Doing this will straighten out the ear canal so the medicine can get into the canal easier. 7.To make sure your ear soaks up the medicine, do either of these things: Lie down with the affected ear facing up for 10 minutes. This will cause the drops to stay in the ear canal and run down and fill the canal. Gently put a cotton ball in your ear canal. Leave enough of the cotton ball out so it can be easily removed. Do not push the cotton ball down into your ear with a cotton-tipped swab or other instrument. You can remove the cotton ball once the medicine has been absorbed. 8.If both ears need the drops, repeat the procedure for the other ear. Your health care provider will let you know if you need to put drops in both ears. Follow these instructions at home: Use the ear drops for as long as directed by your health care provider, even if you begin to feel better. Always wash your hands before and after handling the ear drops. Keep the ear drops at room temperature. Keep all follow-up visits as told by your health care provider. This is important. Contact a health care provider if: Your condition gets worse. Your pain gets worse. You notice any unusual drainage from your ear, especially if the drainage has a bad smell. You have trouble hearing. You have used the ear drops for the amount of time recommended by your health care provider, but your symptoms have not improved. Get help right away if: You experience a form of dizziness in which you feel as if the room is spinning and you feel nauseated (vertigo). The outside of your ear becomes red or swollen. You develop a severe headache with or without neck stiffness. Summary Ear drops are a medicine that is placed in the ear. Put drops in the affected ear as instructed. Use the ear drops for as long as directed by your health care provider, even if your symptoms begin to get better. Keep all follow-up visits as told by your health care provider. This is important. This information is not intended to replace advice given to you by your health care provider. Make sure you discuss any questions you have with your health care provider. Document Released: 06/11/2002 Document Revised: 05/30/2018 Document Reviewed: 06/20/2017 [employer] Patient Education 2020 [employer] Follow Up Care 01/06/2022 07:58:43 With:Elizabeth Veliz Address: [address] [place] [address], [address] [place] [address]- Business (1) When:01/09/2022 08:19:10 With:ADRIANA MEJIA Address: [address] [place] [id number]- Business (1) When:01/09/2022 08:19:07 [facility] Discharge instructions 10-04-2021 Note Date & Type Note Facility 10-04-2021 Hospital Discharg e instructions Follow Up Care 10/04/2021 10:34:18 With:Kirk MOREAU, MANAV Vincent, LUZ MARIA Address: [address] [place] [address] [place] [address]- When:1 year [facility] Evaluation + Plan note Note Date & Type Note Facility Evaluation + Plan note No data available for this section [facility] Evaluation note Note Date & Type Note Facility Evaluation note No Information [employer] Other History general Narrative - Reported Note Date & Type Note Facility History general Narrative - Reported Type Medical History Depression, controlled Medical History Generalized osteoarthrosis Medical History Transient insomnia Medical History Obstructive sleep apnea Surgical History Hernia Repair Surgical History Left ankle surgery - with plates and screws 2014 Hospitalization History SEE SURGICAL HX [facility] Other Hospital Discharge instructions Note Date & Type Note Facility Hospital Discharge instructions No data available for this section [facility] Progress note Note Date & Type Note Facility Progress note No data available for this section [facility] Discharge Instructions * Instructions* George Alcala, - 08/01/2020 Thank you for visiting [facility] Emergency Department. You need to call Adriana Mejia MD to make an appointment as directed for follow up. Should you have any questions regarding your care or further treatment, please call [facility] Emergency Department at [phone]. Take any medications as prescribed, if given any, otherwise for pain Use ibuprofen or Tylenol (unless prescribed medications that have Tylenol in it). You can take over the counter Ibuprofen (advil) tablets (4 tablets every 8 hours or 3 tablets every 6 hours or 2 tablets every 4 hours) If given narcotics during this ED visit, please do not drive or operate heavy machinery for at least 4-6 hours. PLEASE RETURN TO THE ED IMMEDIATELY for worsening symptoms, or if you develop any concerning symptoms such as: high fever not relieved by tylenol and/or motrin, chills, shortness of breath, chest pain, persistent nausea and/or vomiting, numbness, weakness or tingling in the arms or legs or change in color of the extremities, changes in mental status, persistent headache, blurry vision, inability to urinate, unable to follow up with your physician, or other any other Care or concern. * Attachments The following attachments cannot be sent through Care Everywhere. * Head Injury: Closed: General Info (Macedonian) documented in this encounter Assessments Diagnosis Closed head injury, initial encounter- Primary Summary Purpose Family History No Family History Records FoundNo Family History Records FoundNo Family History Records Found Advance Directives No Advanced Directives Records FoundNo Advanced Directives Records FoundNo Advanced Directives Records Found Additional Source Comments Reason for Visit (unrecogniz ed section and content) [facility]-Staple Removal Reason Comments Fall slip and fall on ice , hit left side of head on door. reports loc. not long and elbow pain Ordered Prescriptions (unrec ognized section and content) Prescription Sig Dispensed Refills Start Date End Da te ibuprofen (IBU) 600 MG tablet Take 1 tablet by mouth every 6 hours as needed for Pain 120 tablet 0 08/01/2020 acetaminophen (TYLENOL) 325 MG tablet Take 2 tablets by mouth every 6 hours as needed for Pain 120 tablet 0 08/01/2020 (unrecognized sect ion and content) No Status Records FoundNo Status Records FoundNo Status Records Found INFORMATION SOURCE (unrecogn ized section and content) DATE CREATED AUTHOR 08/02/2020 [facility] DATE CREATED AUTHOR AUTHOR'S ORGANIZ ATION 01/17/2022 [facility] DATE CREATED AUTHOR AUTHOR'S ORGANIZ ATION 01/18/2022 [facility] (unrecognized sect ion and content) Personnel Name: ADRIANA MEJIA MD Address: [address] [place], [place] [address] Name: Esther Padilla Personnel Name: ADRIANA MEJIA MD Address: [address] [place] [address] Name: Esther Padilla FOR RECORDS PERTAINING TO PATIENTS WHO ARE OR HAVE BEEN ENROLLED IN A CHEMICAL DEPENDENCY/SUBSTANCEABUSE PROGRAM, SOME INFORMATION MAY BE OMITTED. This clinical summary was aggregated from multiple sources. Caution should be exercised in using it in the provision of clinical care. This summary normalizes information from multiple sources, and as a consequence, information in this document may materially change the coding, format and clinical context of patient data. In addition, data may be omitted in some cases. CLINICAL DECISIONS SHOULD BE BASED ON THE PRIMARY CLINICAL RECORDS. [facility] provides no warranty or guarantee of the accuracy or completeness of information in this document.
--- NOTE | 2023-09-19 10:20 | XR_ITS ---
The [address] [address] Patient Name: ROSALIO JARQUIN MRN: [id number] date: 1955 Sex: M Assigned Patient Location: [facility] Current Patient Location: Accession/Order Number: [id number] Exam Date: 09/19/2023 10:13 Report Date: 09/20/2023 07:31 At the request of: ELAINE MEJIA Procedure: XR lumbar spine 2-3V EXAMINATION: XR lumbar spine 2-3V HISTORY: Low Back Pain M54.50 ; bilateral leg pain COMPARISON: No relevant comparison available. FINDINGS: BONES: Mild right convex curvature of lumbar spine. Mild grade 1 retrolisthesis of L1 on 2, L2 on 3, and L3 on 4. Moderate degenerative facet arthropathy L4-5, L5-S1. No fracture. DISC SPACES: Marked narrowing of all lumbar levels. PARASPINOUS: Negative. No paraspinous abnormality is seen. OTHER: Negative. XR/XR lumbar spine 2-3V IMPRESSION: 1. Multilevel marked degenerative disc disease of lumbar spine. 2. No appreciable acute abnormality. Electronically authenticated by: SIMRAN MATIAS Date: 09/20/2023 07:31
== END 2023-09-19 09:59 | disposition home or self-care (01) ==
LOC: RAD 10:00
PROVIDERS: PCP Family Medicine; Visit Provider Family Medicine
DX: M54.50 Low back pain, unspecified (principal); M79.604 Pain in right leg; M79.605 Pain in left leg; M51.36 Other intervertebral disc degeneration, lumbar region
CPT/HCPCS: 72100

== ENCOUNTER 2023-10-14 12:57 | Outpatient (OUT) | payer MEDICARE, SELFPAY ==
--- OUTSIDE RECORDS SUMMARY | 2023-10-14 13:22 | XMS_ITS | CCD ---
Author Organization [facility] Team Providers [facility] Care[facility] Home Name Role Phone Adriana Mejia Primary Care Provider [phone] TOMI ESTRELLA Attending Unavailable ADRIANA MEJIA Primary Care Unavailable ADRIANA MEJIA Primary Care Physician [phone] Esther Padilla Unavailable Unavailable CYNTHIA, DR LENA Campbell Attending Unavailable CYNTHIA, DR LENA Campbell Consulting Unavailable JACKIE, DR ADRIANA Hammond Primary Care Unavailable CYNTHIA, [...] nurse or physicia Propensity to adverse reactions Comment:Done Treeveo Other (3 sources) Allergies Reconciled Propensity to adverse reactions Unknown Treeveo Other Medications Current Medications Medication Drug Class(es) [...] tablet (3 sources) Opioid Agonist Start: 11-03-2018 Brandywine 325 mg-5 mg oral tablet 1 tab(s), [...] Status: Ordered escitalopram 10 mg oral tablet (4 sources) Serotonin Reuptake Inhibitor Start: 09-17-2023 take 1 tablet by mouth once daily Escitalopram Oxalate Active 1 TAB PO Daily September 17, 2023 12:00am FreeTextSig: TAKE 1 TABLET BY MOUTH DAILY; Note: Source Status: Taking; Refills: 0; Qty: 90 Tablet; Provider: Jackie Wright ( ) take 1 tablet by mouth once nelida y Escitalopram Oxalate 10 MG TAKE 1 TABLET [...] 08/01/2020 Active lamoTRIgine 25 mg oral tablet (4 sources) Mood Stabilizer, Anti-epileptic Agent Start: 09-17-2023 take 1 tablet by mouth once daily at bedtime Lamotrigine Active 1 TAB PO Daily at bedtime September 17, 2023 12:00am FreeTextSig: TAKE 1 TABLET BY MOUTH AT BEDTIME; Note: Source Status: Start; Refills: 0; Qty: 90 Tablet; Provider: Jackie Wright ( ) Start: 01-25-2022 take 1 tablet by musa th at bedtime lamoTRIgine 25MG lamoTRIgine 25MG, 1 (one) Tablet at bedtime # 90, 01/25/2022, Ref. x1. Active Oral at bedtime for 0 *Pick strength-form from [employer] for eRX* Dec, Active take 1 tablet by musa th at bedtime lamoTRIgine 25 MG TAKE 1 TABLET BY MOUTH AT BEDTIME for 90 Active loratadine 10 mg oral tablet (4 sources) Start: 09-17-2023 take 10 mg by mouth once daily Loratadine Active 10 MG PO Daily September 17, 2023 12:00am Start: 10-31-2020 take 1 tablet by musa th once daily Loratadine 10MG Loratadine 10MG, 1 (one) Tablet daily # 30, 10/31/2020, Ref. x2. Active Oral daily for 30 *Pick strength-form from [employer] for eRX* October, Active losartan potassium 50 mg oral tablet (4 sources) Angiotensin 2 Receptor Brandi Start: 09-17-2023 take 1 tablet by mouth once daily Losartan Active 1 TAB PO Daily September 17, 2023 12:00am FreeTextSig: TAKE 1 TABLET BY MOUTH EVERY DAY; Note: Source Status: Start; Refills: 0; Qty: 90 Tablet; Provider: Jackie Wright ( ) take 1 tablet by musa th every twenty-four hours Losartan Potassium 50 MG 1 tablet Orally Once a day for 90 days Active meloxicam 15 mg oral tablet (4 sources) Nonsteroidal Anti-inflammatory Drug Start: 09-17-2023 take 1 tablet by mouth once daily Meloxicam Active 15 MG PO Daily September 17, 2023 12:00am FreeTextSig: Meloxicam 15MG, 1 (one) Tablet daily # 90, 12/13/2021, Ref. x2. Active Oral daily; Note: Source Status: Taking; Refills: 90; Provider: Jackie Hammond Start: 12-13-2021 take 1 tablet by musa th once daily Meloxicam 15 MG Meloxicam 15MG, 1 (one) Tablet daily # 90, 12/13/2021, Ref. x2. Active Oral daily for 0 Nov, Active predniSONE 20 mg oral tablet (1 source) Start: 09-19-2023 take 20 mg by mouth twice daily Prednisone Active 20 MG PO Twice daily September 19, 2023 12:00am Problems Active Problems Problem Classification Problem Date [...] sleep apnea (adult) (pediatric)] Onset: 10-09-2021 Chronic Spondylosis; intervertebral disc disorders; other back problems (2 sources) Low back pain; Translations: [Low back pain radiating to both legs] 09-19-2023 Episodic Substance-related disorders (11 sources) Smoker; Translations: [Nicotine [...] by: SIMRAN MATIAS Date: 2022-01-14 09:21 Normal [facility] Coding Summary.on 01-12-2022 Coding Summary. CD:[id number] G h0bWw+PGhlYWQ+BQ9PBLJ iB81xxCFbxK0XI4rMAJ5B IRMCJDBZGE8WPC1gnTO4M NutV7XuorTg EgdwhXKdYE58PCo9TOY6i OpySEcsiW2qvHUrC7y0Wa DxPP64fY82RBwlTKJoXdW 3LjZpbjsgbWFy Q8boNfTndPFiYbr+PHRhY mxlIHdpZHRoPScxMDAlJy WnjYxgNE3pFi1qYGOiUXY vbGxhcHNlOiBj n3afMGHqURnpUR7rgGfgH 7QnuNY7FMBeg2w5Md64zC I+GREaUBN2xKjfVOkit73 0EoWen8mjJFB2 xDQvZXnvFWO9X78qp2P4J UXyCQJoACD9cSA1uN7wmD frswljR4NogHTvTfV4YAF 6gPCjxY9gjIon xttduX1tRfv+Q80JTP5ES VNINH9VZga5O6VvDtepyZ I+KM21GYSoFZ74gXZjtKO te1oowEq8McWj PZNaTKD2gHsyGFfki7CfH TYkP76hrZXxd8R4APGxnE bgiTFwJuLaoVS8sL5uJJx xrwybm7wcuqti Nvdwy7olsw93pH56W85iQ PkkVHXaQFQ5EANbNOYpgF voms2vgA1uZs6+SNnnu3i uu1vnjXk6PbOm OCDiwiCraXfpKIE6w2GcH u08F8DusWuiq1BiQai6ts 34uBOfx4A6gJO9JGtsMVB joT5tXAzfQbT7 HQUrGiFbpQ21jXInWBarN v8jySrcjSmkGC9kDCYutu gkFGIvkN8hOCSaqMWrlYx dUC2bNTYezvmz t509VjIbWYX0TXHwwONgJ 6IgiI0ePtZoLHVqJAFeB9 HnuBHzYElfR806QEccExE 2VTLwjhCkL1Eq LQAwiMrfYlW0a0I0Nb8Dh 2WetxtvPAE4BGksQHE5Cp P9KjOgEiZ3J9RvQib5NPR kqRezFC1lF6Wi CVYckxayehxehJA8ZWQqT WIjvW38rIFaVMyjJm3uy9 E8g937YTSfVMQfrP65Gq9 udDogMTBwdCBU iI6ccixfa3mvwvmuSiQyK XVnXGc9QBh4HMByxJnlFr YbNAZ1BmN6EIH4hQFuqS8 npNfezgvghN3g Oyc+H08noE0qZTN2DUY1w jofXROwetLiTR85AP25R4 RyPjwvdGFibGU+PGRpdiB yoQyjYV2fWwYd t8qqd5UgFTyyI6HtJWFeF KaeSsa4LUGkWBS2rKE2sV 0aDKCvRAqqv4M9fHX3N6V jdgLqwn8ym1pg WJMeOScjY20xoPCut1Q1I KTpbIS9WMFgvEcmXnSsbZ 93Oyc+YBEmbUyyl0PmLbq ej0hmo8xzxSv2 WqXxRIDsldTtwXjnRQZ8g 4QdLh40K03lSKmfUZRaIG SrBZRfNTIjtGsuyh8ipZ2 wIi8+PGNvbCB3 jRF1bF2sSRUdWiF1RGnmY 747LiXcbCAmDkldq4tsw7 soyVe8QyVpZRPmdqLdjGm mOME9z1UsJr16 S77aZZfdVVTmLVExEHZfC KUlrMibpy3ekA0qWa0+PC 5ce3yhxi00cU10kUP+PHR iYXG8tRcoGGfr SUUnoF1bHNrxLfP7XEYgV sUwnK49dCScYOagRm5xtL dgsJwuYE4qRUNixlcqm03 5VnAhl9kkZLRa oUUlTLkfLLR7M79ex5Z8T GDzWXRxSCF5vZR4dK2eoM lnbjogbGVmdDsgdmVydGl sAEczZVepP077 IHRvcDsnPlBhdGllbnQgT aMaCOl4Y9PyLkw2UTAdvD tiDS3cmWRzWOcbYv9tnGa wrEqzNI9pYKMw hrfkq325CkWln3rpREOzy OTlTQwwMIL7Y40dt0W6CM QaSFZkDRX2zLI9xA8apNb nbjogbGVmdDsg blFtgFrbFJotESjeV998M HRvcDsnPkJpcnRoIERhdG S3TS27NF17pXSfq3H5eEL 5M7LcTSKhekyp vixqkCI6TVBcZASmnK27Z z1pxGysPz2zSCQuHLN2DX ZbiXPgN2LvdU7kJgXlZQY wUSErK3GfvPGy YSsrP874SSkrSqH3WULfd gPiO4UaSZLdfNzmXfX2q1 N5Gh3JA8A8FI38AF02tVG rf6C3iWH3D6Yi VVYtobzyvmolsIH1WPZnH EXycP22Gg2pfWabWp1zYM HfHWN4GZFhtLZjV9BflE7 yOiAjMDAwMDAw S7XisJFiNBzaQ599IVykI lE3AFXjkwEiU6LoBPEcoM fhWlJ8b1N3Wv4VIKe7OU1 3ET43zNCwo6J3 lFE3S4QsPSXuxanfiirle TN8KAUhVXWwaO59Ni2agQ asLs2uCRQxPUK4VXKdkLH vD8PliZ1gLcJz HNNhHEQxF1ZbjDKxHGfgF 304BUebWcP4DNTenwSrC7 RnWGPufYmoWrJ5p1B8Gh4 NSLGbBH60FWS8 oSJ7YK76PI96N8OcTwrps GFibGU+PHRhYmxlIHdpZH RoPScxMDAlJyBzdHlsZT0 lIv8qTUUfXUDj aHsthQFdTlPgf6ggEDTuG AjaLG1kmSzdR8ZwbKY6MQ Qit3y6Jc81S06jK1BsiZI +PLPewBM0kIC7 uV9jZtEcDfH5YYhlY273J rJqpXDgRiewr3vmb8zxsF t3PtD3XQDlxuRaiYjvVBV 5g2EtXa89Y48s IHdpZHRoPSIxNSUiIHZhb Yyqra6acW4vYf7+PGNvbC C6iHN9pB9nPnGoCkB8KKb cK547IuObrVTc Zpfaf5azu3fwwPb3RwVeL ZBblwFjoUvyNWK3k9LrBo 10U4CasRmxv5RpFhb1xz5 7fEZsh8F1lAG5 B8JjKFFedtzgtDLhxQofD U6oVKQlmkloUYWajF5bDC WhS0i0PxZtSgH7IEfcP9J dfjB3RGFoeSZm GQziSLZ6T27ik6U6OPTbL KSaVDO9bVC2tO0ybPsshl ogbGVmdDsgdmVydGljYWw nKSkmQ910HWHv fPnsZZZsxM6uATYmgYYxk LihKA8bYUOpqtwmNbNIWd OWVpJIHBKPY6nTLuQIGC5 9LG88wIJtn0G9 rSG4J1JmWRSljyivdefdc VZ1PCBrWCYnuH33qYRnKR ioEb5po3I0c628UTVvSKO kcI45Ev6hiVfd SHEceDPOrH6wzbgls0lxk xhgEqYhFSClEVp2YTr8YJ QkrUyjBbLqBZL7KhL8FDJ 1tTHwqQ0mvNsp mvrgiI6bDbg+MDkvMDMvM Il6VmthmAE+TQQnGHQ2zT pyLSlsTVQqrF7zFNKnV3w 5QnFpPqT5FMks S1CwVRJlomkhFs38gH9oM qWhKeE9POxsL9GfdaL0CN BauGCnLFbzIUY5G57aj0N 6AUYcUWXeQGA2 dUA7cR7ebUhdubnvrPJts DsgdmVydGljYWwtYWxpZ2 62YMDbgIipAaP1EWajOGR kHN19XU25uORy q1U5vUS5G6VaREXahllov cmviFB5JPHqUYKgxZ45gW GoSYooBw2gd0H4e697KNU nZWCgfL94Id4t qXbvJDYbvEISjY6dgnxxu 2wlhcidKnNbVVYrPXs0YB v7BUWrqXpjOaXpCGD9NvP 9HVP3sVLnjL2g rJknhficaS3sWfn+TWFsZ TwvdGQ+AXKrYQN1xQewUL stSMJkqS9sYLTaF0z9MnK gGeW4WAucZ2Jg UOQogsriMz30iP5aFcGjQ vE8VQkmJ6AjmyF9NPHrmO JiZCclJMB9X05ef9V8BAD cSTLsNMN2tJJ7 yA0hnLkovtvvaCPybWwzt zGueQouUDdrQTagG879NY XfqCnqQy69lRCiqXyorwR 5O4MzLyvhlUD+ GL76ZKPuWK33lWXzmGMsc 5ginXi7VoBwLZTlZRS7uU hgTFdxm6QoWXIkG11uqFC wh4L7GUVnlLii oKFiXxXxrNB6nM9eRYkxk jthf8ykfrnhLsvhj3jvib 59pS85D46iPQmrHCVyQGR zMCUiIHZhbGln zm6qrQ0hXp1+RYBozHQ6g FJ8sW7sJsRnInR6ACxnT8 08JcKncVHiGbddi4fvo4b huYl7KxUrVLCn mySxxIrgXKH2e2EpOe50J 29sIHdpZHRoPSIyMCUiIH LiwSzjid4pkV1bQj8+PC9 yy4tgmh23kL33 dHI+ZIPmKZH7rAdgDNwhF KEoyN5dBKsuFnA2IZOtEe BicJ24uINdPNwhXm6oeNs voVogVU6qKDYi hgomv407BrJbk2kaUHNqa HHvMNcyRQA8E52pc8C4UC TqYGHtTKM5lLE7fV0qgTr nbjogbGVmdDsg smAmfRhfCOdlZPdhD547R JZfxJczQsOxyBUjA2borp EGLZ5nWvuyfJV+PHRkIHN 0eWxlPSdwYWRk uS3jZKOnJ5c3HeWmJyH7V HenX8KxnvJ6KKVrhCNwMH NxbARPvU5fllafa7ronuh gIzAwMDAwMDt0 WLg2VUVwyEtsFrPjAKQ5J tY7LWY0bLStbQ5woZctyi dvtZ5mGum+RklOOjwvdGQ +CPSaGSO4tMjj SYtpBNNybC8dAZCqM2j1S vPuUuE8BCwoD1TafsH8ZZ ZevTDuYBHymLHRzT2miww jb2fsvgzpPtPi RLByLWs7VAn1YRLakMohX hWzPIB9ZpS8PIQ1gNJdaZ 9aaXbjuasypS8wWyg+TVJ OOjwvdGQ+PHRk NWY2gWcvVJrkOGHfwN1oW BJyA3a2NwMaZyB6EKspF7 NumcD1YZRuhOMwVDAkyMB GbT6dxdvdg1qu fzdwGbJcSRXuHXo2EBt6T SFmgOuhRdTnCOW5NuJ6NU X6wETprR2sdWekicdfkF9 wOyc+RID7TUA1 AN18NY44P2HyApauzLAtp +PHRhYmxlIHdpZHRoPS wrHHMuWsMesEgaPU0uQp7 yZGVyLWNvbGxh cHNl (more content not included)... [facility] Coding Summary. CD:[id number] G h0bWw+PGhlYWQ+WT3PKMF bH21pzJFvdS3OB5uSJP3K WXITCHHFSN6ULM1rlWH6Q NtdR5SznfMe BpwhaHUoPP06CKy1TZM1g IjgUGmxaD5cwYIaV5d4Ng DlHN58bL65DBllIPOyFrC 3LjZpbjsgbWFy S2ncJrGiyHFnOsp+PHRhY mxlIHdpZHRoPScxMDAlJy PtsDsnOI3dJj5uSVHsFEK vbGxhcHNlOiBj r1qxMWKeCTnyHS9qsGoyW 8BqrDN0YMNmq3w3So66zP I+XHZfQSP6qOqhAVuvh42 0XzLko9ilLWU6 lVHyQSqtZBL4G02zw5G8V BNmEQVgDCL2iUQ3wW9qqY aurixlK3ZbhOBrPeY3IQL 2yXQqfA8fjImc wbkllV5pZzx+W76VMV1TK TKMGT5JGze4A1VjOwztbB I+VG75FFMrWL67nACqkFK dj8dzwRv0MeJj WYXoULT1aNomFOkan3XdT NHlB11zlMUpm3R8GTNyuT fmrUTyAgNueQV2zG2zNRs yngdod5rkwflb Thcmt7fzfo24cS15W46qV OpuKTYhQUA9NCRdJCSfxC oqtw0vjN2bGc4+MSyzq3g sp0ysmIx3PqAx USMuqbSblVgtTMD1b6XfU h44V5GltSklx9HoHnp4jd 49jLYnt5G9kRU7XYqaJDX yhH8zXXwvLtW4 FJVmAnWaqI71xYXcOYoeU z6jeHbyxIkvXT5zWIRmnd zhMBXnzM4lCSEcxEQozBs aLY1jGONmqpsc y699ByGnXPH4VSFhjRHxY 6FueF5nOmDnPVVdAOLxC1 AsnLJwTCltU620JAqyAxD 7SZNtleWnA4Pi XAVyfExwDqQ4y8X4Ku0Hd 2ItffsfYBD1UQmoFGB3Ub V2JuNhHpT7O4WmZap4YRQ kcBdnSP7mU0Je CACckzhazdyauGZ9TITbQ BElhQ93kUZaFPheUn7du9 C8w444WBKtVYLeiB02Jm4 udDogMTBwdCBU sE1bgdmru2goylauSsXwZ EJrBQz1PWs4ZYTmiAlkZn VcQEF0CuV5XZA9hGWhnV8 zpNhrbajxxI2m Oyc+D44vqO2iWWQ8GHE6c lliNREunsUcJL06QE95S0 RyPjwvdGFibGU+PGRpdiB nvCudJQ4vXoOq q3cki5BeSXkcN5JuZWJnI PlpJik5ZEJiRGE0pOB7oI 6mLTNzKRcjs6G0tXL0J9H ogzIjcn7zy6pw OARlVHqzQ82qqJEth0X1R JIsuTX8YLMqgVoiRdRutS 93Oyc+ADQmeQiop7NkZpb xy8cvt4rjtUd2 TxEhKXRpmhRzzAfqHMU1g 2ThXs83Q85rNGvzVHKdSE TvTEMdKCJtpGpwox0lkP0 wIi8+PGNvbCB3 zLI6dV8oTUAbSqU2CQjmO 231LbWcpMYjMfkog3avh2 hekGg1CkZdROAsxrYbeLu nMRA9f6VyMq36 K44qWVkdHQSfUDTvMWKeS VFdhKkfme4hcP5bHq2+PC 1vn9xsex65tJ18vAZ+PHR wJTD2aXmqQZms YYCmeV8oKIaeLpY1BDIeD zFnfI97qSGkMQiwNd4xsI rmvBiqUC0iUSZzdljxk20 0VmRzj9zrXIWz zQQsRHmaIFA5A97tt3Z3E YHjSADeQJA3cKX5lB0clX lnbjogbGVmdDsgdmVydGl eIAdvLYrdO440 IHRvcDsnPlBhdGllbnQgT wUbAJc8I8VvEtj0GDTzqS soRU4hrORvZKdrWe6laUu ggAysGS0hMOAe caruk884AvWyb1zxZLLev BOzELceXOE4B41mx7R7RL IoCXKsXII1xKJ9hW9wzEc nbjogbGVmdDsg ftFbuLdsCUawZOywF171I HRvcDsnPkJpcnRoIERhdG C6UZ29HN22xKKuu9Z6wTZ 7B7OpNLNyqjqz vtrlaKC8SXZvVGFaaA12S m9wgYvdSl1dOFNpDJX9UB MbbTMbG8IcbY4oLrIqXWG tXFCeQ6UtgFIr RLjtP268RVbdHbH4UWAbi tDlK2AqLUIcwUzaVwB0f5 S1Mv0DY5R9SK27FB52yWN hb0H2eIL4E9Hn EYEguvhbaxytxFF6YUXvU XXonY13Dd6cdArrBw4vZB EyIQE5HBWgmYPsH2SraQ3 yOiAjMDAwMDAw K0VjgDUpNHsbK482JJwcT hZ4AREzpjUyY0OlSSForU xcMqC9f8K5Pd1LIOr1YS8 8PQ73aGJjp1G0 wNG5U8NrFJHcziradwebj CY6ZXQiYJFdaG97Hm0apY ctAg8sVLJmXPF0DOYrzIK oO3LbpP9oHzZw ANDtYPQlR5GbdSLaWPdgZ 698IFgfEaD4TNHfnsSuE2 LgWKFyiNenDfH6o4U1Vl3 LTHFfDY81HYO7 lXV1PE42QY02V9WzQquba GFibGU+PHRhYmxlIHdpZH RoPScxMDAlJyBzdHlsZT0 kDw4mHUBlUZXa xFlvjYIdWjYrk4mxTROaT IflLU9ddNvyG1JvlLH2JE Fez5f6Mg79G80hR4SwuEB +VJBcpFR7lGZ3 aY9iJePdWyC1MUprL475O tMlhGVuAmkbm7kgf2uaiU o1HhW0JCUvduNeiYkyIJP 8p9BcKk14L49s IHdpZHRoPSIxNSUiIHZhb Pcinf8udL9hGy9+PGNvbC U9nQR0yE9sCoUoHmM9OHx aY117EtJkrGTp Bgqzz5efk7aloUx5FqKhD OTyrnAskNmuWLO1u6FfXz 10H1CsiShdp9VdNjz2am7 9rIFki0D8oVX5 W4TcUQQeerrbfNYzkUamA H9gRWRcyufmQLYgpH1bPD SyH9o3SqXyIpE5XTvpD3D wxyS7FEIscTIh DMztOJA1G21df3T0ZIFfL OYcPZS0fIY2kD9gvRjzwy ogbGVmdDsgdmVydGljYWw cTHmcB406JRKu sCezONTvxV4vJFJjsICoy SzyGG8hAIFiwwpfHhSZZi SVWdMTKNXVD1sTEgIOLE6 6UQ79lUQsz5S6 jAW0M9KcXOJexsyrzhfdo GX8MIFsOWHmjW71vQYyEZ teWd5hu0B6c694YVCiTPN kkU41Pr4ttPig LZXirFROeK1xkzmhs2ebn wfaUsFyJXFlDYb6ESx0RH MmpCjsBgCvKIG9GgM3YQI 6aBTdgR2lkOuo apkecA2gJbq+MDkvMDMvM Zu6CtqbbNN+HKMuLOS8mR xdWVbcUOVigC5lVYXgG5b 6XmJrAwF8KKwr I2XxXJFziallDf06dR5pW fNrFqD7VShvV6JwyxP9XX FykTCrFJbtAAJ1O23ut1R 1SJAtKJBxIWQ5 kNY1cQ1rlNrpnimcbXCzm DsgdmVydGljYWwtYWxpZ2 63CONyvMrxQgK5MPhnRBN oHK41LC55eITq l9J2vSZ4X3UtVWOezwfop damyNM3LWNjJSDzzS15iS GqVLooUo5un5Q2q155ORA zXHLdeX26Tq6m kSmkAGMieBGZxT3jakdwt 1bfnnbkKlBqVETvYFd0UA t8IULtdGhmVbEeOLN0MaB 9BXO2aJKhdN4m lGtjxgjxaK3dVgw+TWFsZ TwvdGQ+WFKhWOI8oAjsHA crFOIlxY8gFRZsX8p4TlU kOiN0ZQoaA6Fl OJVafhlsIh01mC3rTrCnP rR5MCarC9OmojA5QYLewI FsAHohOBX4I45qq7M8ZFX hFCZnBUB2jNC9 mA7czNnnozyxhVRkjAtbf zBmtBlqNKenBVjgN286LU FnsUywWnZmLWYiMV0ppYj vdGQ+LB00bq22 B2XkCwqxHhi0BQWhAYR6r SR8qX7wQGNuVBhzy2N0zL G3N5VmjiGpjg3rx8zgODS pWExzL79nwWQp m2T3JRIxaGD1JHTwwVukD dSekF01Wgl+PGNvbGdyb3 WdCdhjm0ben4pwbPj2DeS wJSIgdmFsaWdu OZB7p5XzCe22A06eVNexN HRoPSIzMCUiIHZhbGlnbj 0pcX5pLj7+PAJysNA4uIJ 2xD0kDnKqLsW5 UBsmG466PxPqfXBfCkaly 2bue1cenTs4NuZpFOGxxz XliGxhHPU3e4PuWe39Q4F cqJhxb6FwYne2 wz21cHKqt0F9aUF0A4KjN VGlqmuzlDHufIupPE9qLS HhvtmiRPFnzF1uLREbV3h 4CsToFzM0NDdc W3BiczM8YHHkwOXlHGKbq JFWwE8lhjfev6ghacfaHn ZcXWVjIXv7XVh9QTAwuVr tDgIyRRO8XrS9 BSD6bLJghQ0szCdsgtbrv G9wOyc+NIz7x2bjjHItUW 3qnSS2IH55MR71aIVnq2L 6gLZ0P6FvFSKb kkmkjjinyLC0GBTmHLGwu M82Xj6puLjkMt2bOEJiVX J6AHLypCFaG9CweD1hRpY hVEReTDYzH3Nt cBAfJSnjS305YIstKvC2R ZLlknJfX6IiFSDvtEigEq I1r2O8Xd2YLL48XO29OU3 1xUOcz6W9jIH2 R1PjDYVlvnwbvjkvpSC1E OBvMJMsiE09Pt5feVnuQj 6eYRTwZUR2YCEkyIMzW6X feQ4jUpEkLVSn VAOcD9BgqDDxXBqeE476U BppMoA9GCOkhqYtK8ZyDE IyyOleImQ4v0M8Oe9IAi2 5GK32KU11yPWp l8U3oSI8L1KoAQTmetwud cbxsAI1BXIyRSQjzE33Yi 3jxRsrOb2mKFFvQUP0ZJH nrEAlI4JsbS9v TdHwSYIiJBVqQ7ZbdTDrF IcpA368ECqwGpT0TNFmhq EsS0IrPXJvnBvdMeP8y2H 1Wu7LYUdeefz2 L4PqDhomcMJ+ND14MSDvZ P84aSQvlGPvg8cjvWy1Vd HyBBTjELM9zLgfURltp6U cIMTrV07kvSEg c2U6 (more content not included)... Normal [facility] Consent for Treatmenton Consent for Treatment [id number] .00CD:127 Normal [facility] Discharge Instructionson Discharge Instructions [id number] 1.00CD:127 Normal [facility] ED Clinical Summaryon 2021 ED Clinical Summary [address] [address] ED Clinical Summary Person Information Name: MANNIE JARQUIN[place] Age: 66 Years : 1955 Sex: Male Language: Djiboutian PCP: ADRIANA MEJIA MD Marital Status: Phone: [phone] Visit Id: Visit Reason: Ear foreign body; [...] 08:25:56 01/06/2022 08:25:56 01/06/2022 08:25:56 ADDRESS: [address] [facility] [id number] PHYS DOC NOTES: MEDICAL INFORMATION: Prescriptions Given: New Medications Printed Prescriptions ciprofloxacin-dexamet hasone otic (ciprofloxacin-dexame thasone 0.3%-0.1% Otic Susp) 4 Drops Right ear 2 times a day for 7 Days. Refills: 0. Medications to Continue with No Changes Other Medications acetaminophen-hydroco done (Brandywine 325 mg-5 mg oral tablet) 1 Tablets By Mouth every 4 hours as needed for pain. Refills: 0. PATIENT EDUCATION INFORMATION: Instructions: Otitis Externa; Ear Drops, Adult Follow up: With: Address: When: Elizabeth Veliz [address] [place] [address] 3, [address] [place], [place] [id number] Business (1) In 3 days 01/09/2022 With: Address: When: ADRIANA MEJIA [address] [place], [place] [id number] Business (1) In 3 days 01/09/2022 DIAGNOSIS: Otitis externa Normal [facility] ED Note-Physicianon 01-07-20 ED Note-Physician Basic Information Time Seen: Kirill Simon DO 01/06/2022 08:06 Chief Complaint pt had a beetle fly into his ear, states he was seen at [facility] and they flushed his ear with lidocaine but they did not remove it. pt here today because it hurts. beetle is in r ear. History of Present Illness 66-year-old male comes to the ED for evaluation of right ear pain and concern for foreign body. He states that beetle crawled to his ear last night. He was seen at [facility] where he states the squirted lidocaine [...] Veliz In 3 days 01/09/2022 EDT [address] [facility] [address], [address] [place] [address]- Business (1) Additional Instructions: ADRIANA MEJIA In 3 days 01/09/2022 EDT [address] [place] [address]- Business (1) Additional Instructions: Patient Education Otitis Externa Ear Drops, Adult Attestation Patient seen and evaluated by the physician pharmacy sales assistant. Attending physician was present in the emergency department and supervised care. This visit was performed by both the physician and an APC. I performed all aspects of the MDM as documented. This report was transcribed using voice recognition software. Every effort was made to ensure accuracy, however, inadvertently computerized coffee farmer mistakes may be present. Appropriate healthcare PPE [...] 0.3%-0.1% Otic Susp, 4 drop(s), Ear-Right, BID Brandywine 325 mg-5 mg oral tablet, 1 tab(s), Oral, q4hr, PRN Allergies No Known Medication Allergies Social History Alcohol Substance Abuse Tobacco Lab Results No qualifying data available. Diagnostic Results No qualifying data available. Normal [facility] Comment on above: Result Comment: Elec tronically Signed By: Ramon Gauthier PA-C\.br\Date and Time Signed: 01/06/22 08:35 EDT\.br\Electronically Co-Signed By: Kirill Simon DO\.br\Date and Time Co-Signed: 01/06/22 09:07 EDT ED Patient Education Noteon 01-06-2022 ED Patient Education Note ENT Ear Drops, [...] 06/11/2002 Document Revised: 05/30/2018 Document Reviewed: 06/20/2017 [employer] Patient Education ? 2020 [employer] Infectious Disease Otitis Externa Otitis externa [...] even if your condition improves. ? Take frcj-mzx-wfeggyr and prescription medicines only as told by your health care provider. ? Avoid getting water in your ears as told by your health care provider. This may include avoid (more content not included)... Normal [facility] ED Patient Summaryon 022 ED Patient Summary [address] [address] Patient Discharge Instructions Person Information Name: MANNIE JARQUIN Age: 66 Years Arrival Date: 01/06/2022 07:57:27 Discharge Diagnosis: Otitis externa Primary Care Physician: ADRIANA MEJIA MD Provider Information Primary Provider: Kirill Simon DO Advanced [employer] Motorman:Ramon Gauthier PA-C The exam and treatment you received in the Emergency Department were for an urgent problem and are not intended as complete care. It is important that you follow up with a doctor, nurse practitioner, or physician?s pharmacy sales assistant for ongoing care. If your symptoms [...] Follow-up Instructions: With: Address: When: Elizabeth Veliz [address] [place] [address], [address] [place] [id number] Business (1) In 3 days 01/09/2022 With: Address: When: ADRIANA MEJIA [address] [place], [place] [address] [facility] (1) In 3 days 01/09/2022 In the event that this physician does not participate in your insurance network, please consult with your insurance company to find a nearby participating provider. Patient Education Materials: Otitis Externa; Ear Drops, Adult A MESSAGE TO ALL PATIENTS REGARDING OPIOIDS PRESCRIPTION OPIOIDS: WHAT YOU NEED TO KNOW Prescription opioids can be used to help relieve kpdhjbvv-ch-jtzvbk pain and are often prescribed following a [...] you may (more content not included)... Normal [facility] Auto Diffon 01-03-2022 Basophils/100 WBC (Bld) 0.5 % Normal 0.0-2.0 [facility] Comment on above: Order Comment: Order Added by Edgardo Expert. Performed By: #### 1 [id number], [id number], [id number], 2502084, [id number] ####[place] [address] [place] [address] Basophils/Leukocytes Auto (Bld) [Pure # fraction] 0.0 E9/L Normal 0.0-0.2 [facility] Comment on above: Order Comment: Order Added by Edgardo Expert. Performed By: #### 1 [id number], 1017601, 3793698, 3229293, [id number] ####[address] [address] [place] [address] Eosinophils/100 WBC (Bld) 3.1 % Normal 0.0-8.0 [facility] Comment on above: Order Comment: Order Added by Edgardo Expert. Performed By: #### 1 [id number], 9823589, 3040588, 3422242, [id number] ####[address] [address] [place] [address] Eosinophils/Leukocytes Auto (Bld) [Pure # fraction] 0.2 E9/L Normal 0.0-0.5 [facility] Comment on above: Order Comment: Order Added by Edgardo Expert. Performed By: #### 1 [id number], 2911616, 5733439, 0452678, [id number] ####[address] [place] [address] Lymphocytes/100 WBC (Bld) 19.8 % Normal 14.0-50.0 [facility] Comment on above: Order Comment: Order Added by Discern Expert. Performed By: #### 1 0862131, 6511940, 4364466, 3730027, [id number] ####[address] [address] [place] [address] Lymphocytes/Leukocytes Auto (Bld) [Pure # fraction] 1.2 E9/L Normal 1.0-4.0 [facility] Comment on above: Order Comment: Order Added by Edgardo Expert. Performed By: #### 1 [id number], 5766215, 1319602, 2505082, [id number] ####[address] [address] Monocytes/100 WBC (Bld) 13.6 % Normal 4.0-14.0 [facility] Comment on above: Order Comment: Order Added by Edgardo Expert. Performed By: #### 1 [id number], 1052083, 3816227, 9104401, [id number] ####[address] [address] Monocytes/Leukocytes Auto (Bld) [Pure # fraction] 0.8 E9/L Normal 0.2-1.0 [facility] Comment on above: Order Comment: Order Added by Edgardo Expert. Performed By: #### 1 [id number], 6810033, 0814103, 4080146, [id number] ####[address] [address] Neutrophils/100 WBC (Bld) 63.0 % Normal 36.0-75.0 [facility] Comment on above: Order Comment: Order Added by Edgardo Expert. Performed By: #### 1 [id number], 7239993, 3853152, 9168854, [id number] ####[address] [address] Neutrophils/Leukocytes Auto (Bld) [Pure # fraction] 3.8 E9/L Normal 2.0-7.5 [facility] Comment on above: Order Comment: Order Added by Edgardo Expert. Performed By: #### 1 9491608, 3916672, 1539542, 0633219, [id number] ####[facility] [address] [place] [address] BMPon 01-03-2022 Anion gap [Moles/Vol] 11 mmol/L Normal 6-16 [facility] Comment on above: Performed By: #### 1 [id number], 2812920, 7297962, 5270322, [id number] ####[facility] [address] [place] [address] Calcium [Mass/Vol] 8.9 mg/dL Normal 8.9-11.1 [facility] Comment on above: Performed By: #### 1 3787317, 4583126, 5099003, 6067769, [id number] ####[facility] [address] [place] [address] Chloride [Moles/Vol] 104 mmol/L Normal 101-111 [facility] Comment on above: Performed By: #### 1 9032078, 0561230, 2107457, 2307253, [id number] ####[facility] [address] [place] [address] CO2 [Moles/Vol] 28 mmol/L Normal 21-31 [facility] Comment on above: Performed By: #### 1 3734075, 6803651, 1499242, 5310697, [id number] ####[facility] [address] [facility] [address] Creatinine [Mass/Vol] 1.3 mg/dL Normal 0.5-1.3 [facility] Comment on above: Performed By: #### 1 3361401, 8363805, 8614388, 2868410, [id number] ####[facility] [address] [place] [address] Glucose [Mass/Vol] 102 mg/dL Normal 55-199 [facility] Comment on above: Result Comment: If t his glucose result represents a fasting glucose, interpretation should refer to the following reference range: 55-99 mg/dL Performed By: #### 1 8958300, 3317059, 2058472, 6050214, [id number] ####[facility] [facility] [address] [place] [address] Potassium [Moles/Vol] 4.6 mmol/L Normal 3.5-5.3 [facility] Comment on above: Performed By: #### 1 [id number], [id number], 1401820, 7711321, [id number] ####[facility] [address] [place] [address] Sodium [Moles/Vol] 138 mmol/L Normal 135-145 [facility] Comment on above: Performed By: #### 1 [id number], 0550895, 4597988, 9416549, [id number] ####[facility] [address] [place] [id number] Urea nitrogen [Mass/Vol] 22 mg/dL High 5-21 [facility] Comment on above: Performed By: #### 1 8747075, 9816519, 4342158, 5298668, [id number] ####[facility] [address] [place] [address] Urea nitrogen/Creatinine [Mass ratio] 17 No Units Normal 10-20 [facility] Comment on above: Performed By: #### 1 [id number], 6823471, 8836754, 2291645, [id number] ####[facility] [address] [place] [address] CBC w/ Auto Diffon Erythrocyte distribution width (RBC) [Ratio] 13.7 % Normal 10.9-14.2 [facility] Comment on above: Performed By: #### 1 [id number], 2774465, 2880172, 3741881, 38681159 ####[address] [place] [address] Hematocrit (Bld) [Volume fraction] 42.1 % Normal 37.7-49.0 [facility] Comment on above: Performed By: #### 1 3813845, 2392740, 4399719, 9239933, 77956435 ####[address] [place] [address] Hemoglobin (Bld) [Mass/Vol] 14.3 g/dL Normal 13.5-17.5 [facility] Comment on above: Performed By: #### 1 [id number], 7389242, 9102779, 0605507, [id number] ####[facility] [address] [place] [address] MCH (RBC) [Entitic mass] 30.4 pg Normal 27.0-34.0 [facility] Comment on above: Performed By: #### 1 1767990, 5082653, 2739634, 6276271, [id number] ####[address] [place] 4[address]357 MCHC (RBC) [Mass/Vol] 33.9 g/dL Normal 31.4-36.0 [facility] Comment on above: Performed By: #### 1 [id number], 4218332, 7315133, 1594837, [id number] ####[place] [address]157 MCV (RBC) [Entitic vol] 89.7 fL Normal 80.0-100.0 [facility] Comment on above: Performed By: #### 1 8079079, 4355375, 2070348, 5637395, [id number] ####[address] [address] Platelet mean volume (Bld) [Entitic vol] 10.5 fL Normal 6.4-10.8 [facility] Comment on above: Performed By: #### 1 3354025, 6194597, 4874678, 9373805, 67927436 ####[address] [place] [address] Platelets (Bld) [#/Vol] 240.0 E9/L Normal 150.0-500.0 [facility] Comment on above: Performed By: #### 1 9680663, 4479423, 6557550, 1221582, 85597582 ####[place] [address] RBC (Bld) [#/Vol] 4.7 E12/L Normal 4.3-5.9 [facility] Comment on above: Performed By: #### 1 1464262, 1898513, 6265610, 6577235, 54891499 ####[facility] [address] [place] [address] WBC corrected for nucl RBC Auto (Bld) [#/Vol] 6.0 E9/L Normal 4.0-11.0 [facility] Comment on above: Performed By: #### 1 4219562, 4698497, 9533761, 1945849, 07984748 ####[facility] [address] [place] [address] CHEMISTRYOrdered By: SYSTEM SYSTEM on 01-03-2022 Anion gap [Moles/Vol] 11 mmol/L Normal 6 - 16 mEq/L F [facility] Remisol Calcium [Mass/Vol] 8.9 mg/dL Normal 8.9 - 11. 1 mg/dL [facility] Chloride [Moles/Vol] 104 mmol/L Normal 101 - 1 11 mmol/L [facility] CO2 [Moles/Vol] 28 mmol/L Normal 21 - 31 mmol/L [facility] Creatinine [Mass/Vol] 1.3 mg/dL Normal 0.5 - 1.3 mg/dL [facility] GFR/1.73 sq M.predicted among blacks MDRD (S/P/Bld) [Vol rate/Area] mL/min/1.73 m2 Normal >=59mL/min/1. 73 m2 [facility] Chem S GFR/1.73 sq M.predicted among non-blacks MDRD (S/P/Bld) [Vol rate/Area] 55 mL/min/1.73 m2 Low >=59mL/min/1. 73 m2 [facility] Chem S Glucose [Mass/Vol] 102 mg/dL Normal 55 - 199 mg/dL [facility] Potassium [Moles/Vol] 4.6 mmol/L Normal 3.5 - 5.3 mmol/L [facility] Prostate specific Ag [Mass/Vol] 2.0 ng/mL Normal 0.1 - 3.5 ng/mL [facility] Remisol Sodium [Moles/Vol] 138 mmol/L Normal 135 - 145 mmol/L [facility] Remisol Urea nitrogen [Mass/Vol] 22 mg/dL High 5 - 21 mg/dL [facility] Remisol Urea nitrogen/Creatinine [Mass ratio] 17 mg/mg Normal 10 - 20 [facility] Remisol Consent for Treatmenton Consent for Treatment [id number]#1 .00CD:127 Normal [facility] HEMATOLOGYOrdered By: SYSTEM SYSTEM on 01-03-2022 Basophils/100 [...] 13.7 % Normal 10.9 - 14.2 % [facility] HemeAutoSS Hematocrit (Bld) [Volume fraction] 42.1 % Normal 37.7 - 49.0 % [facility] HemeAutoSS Hemoglobin (Bld) [Mass/Vol] 14.3 g/dL Normal 13.5 - 17.5 gm/dL [facility] HemeAutoSS MCH (RBC) [Entitic mass] 30.4 pg Normal 27.0 - 34.0 pg [facility] HemeAutoSS MCHC (RBC) [Mass/Vol] 33.9 g/dL Normal 31.4 - 36.0 gm/dL [facility] HemeAutoSS MCV (RBC) [Entitic vol] 89.7 fL Normal 80.0 - 100.0 fL [facility] HemeAutoSS Platelet mean volume (Bld) [Entitic vol] 10.5 fL Normal 6.4 - 10.8 fL [facility] HemeAutoSS Platelets (Bld) [#/Vol] 240.0 E9/L Normal 150.0 - 500.0 E9/L [facility] HemeAutoSS RBC (Bld) [#/Vol] 4.7 E12/L Normal 4.3 - 5.9 E12/L [facility] HemeAutoSS WBC corrected for nucl RBC Auto (Bld) [#/Vol] 6.0 E9/L Normal 4.0 - 11.0 E9/L [facility] HemeAutoSS PSA Totalon 01-03-2022 Prostate specific Ag [Mass/Vol] 2.0 ng/mL Normal 0.1-3.5 [facility] Comment on above: Result Comment: The concentration of PSA determined by different manufacturers can vary due to differences in assay methods and reagent specificity. Values obtained from different assay methods cannot be used interchangeably. The methodology used for this result was chemiluminescence using [employer] Access Hybrite[employer] PSA reagent. Performed By: #### 1 [id number], 2003473, 2300155, 7006045, [id number] ####[facility] [address] [place] [address] Physician Orderon 01-03-2022 Physician Order [id number]# 1.00CD:127 Normal [facility] eGFRon 01-03-2022 GFR/1.73 sq M.predicted among blacks MDRD (S/P/Bld) [Vol rate/Area] mL/min/{1.73_m2} Normal >=59 [facility] Comment on above: Order Comment: Order added by Discern Expert. Result Comment: eGFR is race adjusted. AA=. Performed By: #### 1 0590114, 7199653, 4444310, 7775365, 39115854 ####[facility] [address] [place] [address] GFR/1.73 sq M.predicted among non-blacks MDRD (S/P/Bld) [Vol rate/Area] 55 mL/min/1.73 m2 Low >=59 [facility] Comment on above: Order Comment: Order added by Discern Expert. Result Comment: Risk Officer asia kidney disease could be indicated at eGFR's of less than 60 mL/min/1.73m2. Kidney failure is indicated at less than 15 mL/min/1.73m2. Performed By: #### 1 [id number], 5659661, 3407991, 6325224, [id number] ####[facility] [address] [place] [address] Coding Summary.on 10-17-2021 Coding Summary. CD:[id number] G h0bWw+PGhlYWQ+KW5VLPS iN23tfDQlsB7SV9pRXX7C IXHJFILIZA8FAK2zhAU6B TuoE6NrheLs GovckMSwPX65JWe9LSU2c DhmPZxqaL5diOPwX8d1Qw ZbDO26iJ45QInfZLRbWpH 3LjZpbjsgbWFy V8rsBtGvbQKyKta+PHRhY mxlIHdpZHRoPScxMDAlJy LakOgoEV3rQe3xZGSiQSC vbGxhcHNlOiBj e4htAWPsXNmbRW8pkKieX 0UytRU7BUEhx9s6Bh46kK I+PHGjQBM7nEewXBjlg68 5BdVfc1mtWRE3 bHQuAKemSSG4S78pb2O0I TSiGOKjZLO8mHU9xB3zlB ceikjvP4SaaGGoVwY3ZOQ 1uVAebP7xoRvy vkogqA5gUdm+Z08DKN8RI GEUUK7RCfy4U5QzCaylkH I+VH51CBIqBD28wHOpzCB ms2vyfZm3EjLr YBWfNYQ0bIwdMAgam8WbK QCvM19dvIPor9N1CPAklP rguLCoLpIwzTT3dN4bVFh kofcii8edxrqp Xoeqq0ioar78mL41Z04oJ DmfBZGuUFM8MKBsOZFwhY nhal7bbA2mPh7+HHjeh3a nj7nxrUg6AmUr DVCcioZsyQqeCFT6b8KnK j99D7JhjIxuu9MvTat2be 25tGPjq9L4bXR7LDdzNQH fxQ9wMNqcJrW5 XZBaXuKzfE38tTGqXZosA a0gbEzssXfiBQ5hDAKrxm izKWBrfR0pPXUzzNVosZz xZD6pWQQvmikb p771ZoBwJXC7KRHksBGkC 9QtlG8hJoSiSUBkLVGuF1 ZdpLIgAMmkL939UPpjZkA 7EKNdogYgC7Oj WOCgsZnbChC8w1B8Cg1Pa 4OrpfarFVB6WVbaBVE8Kr Y8NdOhLoW2C6ClQjx1GZA beDfaLI6mR9Lj UHRksqzxzatnuJQ0RMTeN NLfuJ60aWIuBIzbPj5pa5 O6w603ALJyUHIykC02Wq3 udDogMTBwdCBU qT1kvzusl7oulhihUjQkC ZDnHHa4UDy4VOSzgFwjTk XjVWC0ZaG1YFK0eGTweH2 bbYyuqlwgkJ2l Oyc+X55wfL3uNGL1RVY3p uuoMJAqezNqHD13XL47R5 RyPjwvdGFibGU+PGRpdiB lsEoxEC0vShUa i3yyy9ClUMmfV4ClYQMhS ZziSje2IEOiGMT4dJX0iO 6vGKIeJUznp2Z4uZH5I5T pgzDrvm6mg1zz TATiNKreS98ijUZqd8W1T AXaqNT3LDPezErcIyLmyY 93Oyc+UXScpMoyn1FdOvl qs2ckm9lwcAk9 ThNmUTExviDwzQauRJP5q 7DiBm89B76sAAkgLWMfZC IeATUtOSGyhWjopf5aeD2 wIi8+PGNvbCB3 uYS8wV6hJBCaQiU3NLpwU 028FgVggZAwDhhjd3efm5 edvYc3WmAlDPXbnvPsnNp rGDN5t3TaMp65 H49xJBngEAYaGIIvIBGkV OWziKhnlh0awA3eDh4+PC 8kr8ejln54lT51lEM+PHR lITR4zQlcIDox WSZzgG7iHByyRiN5AZGbU fDseH29bJLkAAymMd9jrP cavTkfKG9pNEWisdhfl70 7LtSyf5qqBJLz hBEoPHatTQX3H90oy2P5V HMoGOZnWAH9eFE2hB3tkQ lnbjogbGVmdDsgdmVydGl aNXtiUBheF559 IHRvcDsnPlBhdGllbnQgT gScHZy1J1AmXvz7KXPqxS scEW7ylVOlQWicJx4bnPg vtDbxTS3bMRGk alkjq552ZbZix3roYHAoo VSnFMliLGX6C18if8N4AF IrSUDvPXX6fTS4bJ2jlXz nbjogbGVmdDsg lrFrmJiiULnyTSpuT328Y HRvcDsnPkJpcnRoIERhdG V0DN21BW17lUUyf9J2iUD 5V5YaSEVavxmd ljnnrAR9KOWsZUCyjG16Q t2cuFoxVh6dMCFbYYO0RF ZukENzY5PjkX9oXcQrIGV tJIZmK9XjbIAx GOxbT619HChzQsH7KYBjs mViS8CjVTUbtMwaPjW9a0 B2Lh2CA5Y9ZR71UW35oHI gd4B5aDR4P8Zg UWTmwjfkyxrjmGS4FSRbT MXhbT02Ma9sfOcqOh4hZQ DwHRD7GJWjzGWhX4LymY6 yOiAjMDAwMDAw O3XviYBvEDsbY856QXulY aL2RHAjbsGyA5RlAOOuzB ahOlG8f2P9Oj6SYZr8SZ8 5CQ36yRMxx4U0 bQZ8F5JgLYKnzfrrkyfan UK4STJsBJCtdF67Vr7smF seHw2dDPTfVNW3EAJnkTP iT8QmbF6qGbQs QWZzOQYsZ4SkqBScKKwkB 094HAzlCwQ7UKBlyvZwG0 UjMAJvwEcdPgF6t2G4Fv4 ZECQcZI30HIC2 eOW3LB48XG79V2MqBppfg GFibGU+PHRhYmxlIHdpZH RoPScxMDAlJyBzdHlsZT0 eQy4dAJYkRBMu yZlggFDfDkFkj7smMXNtS FqwGZ6aqJqoK2GawQC2YI Ohj3t8Ev46E56fS3LpjBZ +UPBwvOZ7wEP9 sC8eOaVcJtV9OSyoL183W oPctEGjOeuef8ece5pigT y5GsI6QJRohgMzrBftOJG 8q6PbRp65L40h IHdpZHRoPSIxNSUiIHZhb Mpjso6wrL9qOq0+PGNvbC T0jXW2sV0gOfGyJjK3ZZk nB512BvXofFJk Evlod3frh0kdwRi0EgYeZ PGzfuIiyUwaVGF9v4PuXh 69E2VtqUmea6MpDlx5li3 1hMXup4J0vMP1 Y9PxEUPxcxgqwMMoeZlsG O8hMQQuwehdRBDmbN8xLJ XhM9u5BvCjQiY8NGbvD8M jxyJ5OGKmtVLm LApoFBU7U39mr2P8CEHzL JLrEEG1wOZ4lF4ecRzrev ogbGVmdDsgdmVydGljYWw nRFwrV982QURp sKejJGDwuZ2sTSDqvCHkj MhnDM8dTSBshkuqRsPMAq APRiEKYFLKJ3zALmYWHR8 7XS44lQCtu8H5 gQS7E5IxCLJibxkynzfrq WD7KNObHOChiP74rFMcHB gtSc4ir3B2u063RVAcTKF jnT74Ew5rlXmc FLCcuSSKnW0dndyze5bwf cacVrJlJHDoRLy5YZp0JQ MnqMuuFqWpOPL8IsH1EVI 2dBDmoO3scNxk rtlguD9oZji+MDkvMDMvM Un5FahfzUZ+IOFhBGS9eU jyWNqqRVKhqD1kNTJcA0q 4ZhMkJxL9QLyw J7KrZNTboxekNn42aU9lX wLuFvJ4SBwwI5RavuK2FP YtxDCuPNhrJWM5Y89vh4A 5KEJlEQRoUSY5 nNZ7sZ4loWiymqceoLTss DsgdmVydGljYWwtYWxpZ2 31WPCamIizFzW5MGaeYSN eYF63VO58aJQc g5R4uVN8E8AvBJZiknths hizvXW9CEOxCSPkfC07eA EkZQvmJy5jv7G6f947JWY sYVOwqJ38Cj4m yKxzYKEnfRITtK3etjkwf 4jqwqeeKzJmHMRnMIz4ZV g3MKLhnMjaGyMiHGC6WjI 2XQE1sYOkpJ5j xDgkilxyeK9fXyt+TWFsZ TwvdGQ+VXKiFAN2fJoxLE tyJFVniB7zZFLkT9i0McT gTpN7CNpgO6Cs RBJeutggHh88rL9oHzHyD vF4QKaeA6GwlrV6UGFvaX FtDCshMSM1X92vx1H3ARD qFYZgVNP8nKY6 xE3chYsrosbijOLugRfjz yUkwAomNLloIQamH591NS AucOerHi68kGObiUuwkaF 6X4FqJtuagAX+ SX02ILSgIX02vROqkWOkp 5hteDh0HgYlEXPwZWU9cX mgHBorp2XxZCDaR18dzZE dk6B7QXFdrYbd nAWgGsVbwVT6nQ7iZEosv xaci8wahqugVwghe3hxeo 00bO12V76jVCozHVWfBGY zMCUiIHZhbGln pe5ivR1mXx8+ELAprXY6y ZE0pV7nVfIzTcL1ZWpiK8 60YySuyYJvIqvfv5gsp7v muCy0OnYqCAIu zrBetKuxIEU6y2CuLl19J 29sIHdpZHRoPSIyMCUiIH GtfQhvvf3wrB1tGk9+PC9 go1fmov61mZ80 dHI+NCTrMER4qWflYLpoC FSioT7cWBcrOqK1XIUnVl XphW94rCVhWHsaAa3vyWn ehCknDF3dRZSn hrohk316CwZtr6icUTPcf DYtHSxiZCO2O98lg9P3GC LtZAJbZMK2zEV6sE8egLa nbjogbGVmdDsg gkNxtTfqOIhjGOwhF769M XDkuLykWeBpiKIeG8anxj BZXG1rGuumxDA+PHRkIHN 0eWxlPSdwYWRk zA3gNRVxI6n2LxZqSlD6K CjoG1VysvV2LYGuhJQaIP DywJLOwC8mgyemn3bggej gIzAwMDAwMDt0 MDv0FOAhrEdzLoNlDUY5P mQ5DPD2yDEdaA8iuJipvi trnQ9uZmh+RklOOjwvdGQ +IQOrDXD4hTei RAwuOKBldV5fMTOwH3z9I bDbWvF1HEypY4AgwgG3QI HroDKxLXVzdPSWyM3igtt te8ckjseiFyTd WYIcNEs9HKs7WIPdvAqyS pGoVCG4LjA0PSZ8jNRmdP 9dlRptondyiB5gYhm+TVJ OOjwvdGQ+PHRk HVM6wZxeWSbgFXPvzE7zT SYxW7n6RsOhMaL3BPetE4 KcfvM6CNAqqLKoQWTsuLX VmD5wlvezl2su kkqrBnTiAHZdLXg9HRh4Q POxlXchQdHpYHN7VmW9BL U4lRJgoX6dsZjnjrdcgM4 wOyc+QEP7XRP2 UD65TT49N5IjVmyerHNer +PHRhYmxlIHdpZHRoPS qdBKGpPlKkzXysNR3eTw8 yZGVyLWNvbGxh cHNl (more content not included)... Normal [facility] Consent for Treatmenton 09-29 Consent for Treatment [id number]#1 .00CD:127 Normal [facility] Patient History Officeon Patient History Office [id number]# 1.00CD:127 [facility] Sleep Office/Clinic Noteon 0 10-09-2021 Sleep Office/Clinic [...] Kirk MOREAU, Beth Ramirez, PUL, LUZ MARIA Within [address] [place] [address] [place] [address]- Additional Instructions: Problem List/Past Medical History Ongoing Smoker Historical No qualifying data Procedure/Surgical History broke leg. Medications Brandywine 325 mg-5 mg oral tablet, 1 tab(s), Oral, q4hr, PRN Allergies No Known Medication Allergies Social History Alcohol Substance Abuse Tobacco Immunizations Vaccine Date Status Comments SARS-CoV-2 (COVID-19) mRNA BNT-162b2 vax 09/30/2020 Given Prophylaxis SARS-CoV-2 (COVID-19) mRNA BNT-162b2 vax 09/09/2020 Given Prophylaxis diphtheria/pertussis, acel/tetanus adult 12/05/2019 Given Normal [facility] Comment on above: Result Comment: Elec tronically Signed By: Kirk MOREAU, Beth Ramirez\.br\Date and Time Signed: 10/09/21 11:41 EDT Sleep Studieson 04-27-2021 Sleep Studies [id number]# 1.00CD:127 Normal [facility] Coding Summary.on 04-25-2021 Coding Summary. CD:[id number] G h0bWw+PGhlYWQ+SQ5MOOG eR11wrTEkdW2AH6aYHT2B RMYKAMSQEC1POM5dxIS7Q SbvV0EwaaLn BlorsBNpYR87JLx6EZH0a WkvSGuohE4uhPOrZ9g5Si RbLO02nK40SJjjBJIcLcY 3LjZpbjsgbWFy P2ixFjPchJWjXys+PHRhY mxlIHdpZHRoPScxMDAlJy DhxObzAD2eFy0tPCGuELS vbGxhcHNlOiBj j0qcWPJiIJnxCG6itTiqI 0RoyZN3GNZms4i4Kc66hC I+JYMuDAJ9wSikZMwpy98 6XqYso1qjGXH2 vGZlDDtzUPZ0X16aw0F2I FBkILXzNTL4yBX9vM8zrF qljbwgD4XkdXLnIwJ4GTM 2yJKcsJ2vdDno utowbZ3vAas+J87ABJ6OQ FHWDF5NTqf3S9SiIxaqdA I+TO89OWRqLV85uEAyrKY bs6tpeDb6CxWp MMQaNOC3yCzcSSrbh8FhI RTuC33dzTJgw6B6FUPuvW osjJSpHnGtmEF1xH2dVPk nayang3uiwijx Ybzyx6uvoa54jJ21E56nH MlfWVQbLTB2DQOdPCPkfE wbil0lkV3fEw0+WIois1n as1sneLa9ThDw BDJuwbUxfGsaHFY6p2ZsH a58E0JitRpot2YnNuo5bs 40jEBcz0Y5dRM2XVjiWHM frE8lGJppFnY3 HKUgKdNwnN92eALiQGwiE m2tsQuoyWacIF3qEOCmev olMUXrdK4mFUVciRForQk hYD6iRUCtdavg h701SfKbSME8AHEytGVzD 5KgrF7kYoPaVAXdFLYyU4 WstUQdEYbkB165DQycGuC 9HKYfshNtM8Mt HVEhoZztRqQ1t9G2Dv6Xe 6ZvxmnmRKM0RKvvEVBrBn A1AuDiDkV5A0QdQxz2ECA fjOukBS6eR2Pa AXEfmbzxwmondKI0ALTjN XQreH10sZKlUNpaFm8qk7 R4u142RWGdVFHngG12Zf2 udDogMTBwdCBU xU3oaunzy9otkowbRoVbD RBzHOf9NGa4ZGWolTrfWx EcJCE9BuF2MGI6pQYliJ4 cbChhwhwdtO7e Oyc+M61ouC9iJRD2OHY1l smlQRWobzVcOO72DJ32N0 RyPjwvdGFibGU+PGRpdiB geMcyTI4gYbOp y3exp1ZlFQvfY1WgHGYbU BarGpr7NJHgXMT8oIG9aH 4fBUPfNJnrb0D6gNB7Y8F lumZtzg3gg8dz HMQbIOgpG50voMHnz4W2V GWpzRO8SMHxkIeyVsYduW 93Oyc+AZNdqFhrm4FkNfl zb9sun3wrsNu9 UdIhFMYjffQeqWdsDOY3x 6YuYl37R53tEZuqXZAiPJ ScERTkZFFkaPphqy2jeY8 wIi8+PGNvbCB3 rCX4nA2jXZOdAvI7WMnxD 209ZyVzfERcAgftx2dux9 fenSg3WcWlSWCviwDihPz tKLY7a5MvAv15 T52kVNedAYHbNAQdRKZiE CDirPrjbg9obJ7gNo9+PC 9gf5aaas77oJ70eIH+PHR sRTQ6lFotYOku GYEjfT3sNOsaQbO2CZVlI vNrsZ95eRFyRCkqAi3hfI qbqCzkZD1sOJByjthtm55 1SaBbc9aoGMVn eTRzYXctDFC5Y85tu8S4C RTnHLQbAGB6qZN6wC8ymD lnbjogbGVmdDsgdmVydGl xWWnoNXcdM910 IHRvcDsnPlBhdGllbnQgT lEmDRt8X1MgPhz4UVWvgE yyNQ4fpHUbRZuwAl6hoNv ngDjeBI6wBLAy vgbcf028LxMqn5qoNDIit IOwOMebMTR8U10an9Q5QC DgCIMeDMC8bLX6kG3yxQb nbjogbGVmdDsg epLdtBskXDynITifG706T HRvcDsnPkJpcnRoIERhdG C1GU05ZW56cDHws9O8vMK 8O8DyXQPggcne ioelcNR9WOFeCPJzzV25V s7gjZipKo6yHVCtKIM7YH PrfWViS4RptD8eRpQhQXC jIRJqI7WppHPs FAgvX972PWlnEtU2ZJCaa yByF4OeEKHlzYqyQcJ0c9 P0Kq7KD7Z8RN38EB81tRU mv9Z2aKR8R4Kn SSXmontohuvcbVH5WGDxF RImfY71Vb4jhWayDb4sQS NlQFL8CCBwuWTkF6HevJ6 yOiAjMDAwMDAw C6SeeNFzIMllR791ULgtO mK6DUDlpnKtP0WtXETrpQ enNpC4r5J6Eg7BUNo2WO4 2YC19rUTbo4W6 xBC3D9ZaKYDvnkrchjcox BN5USPoMFNbfE10Ob6bwD suMk4fKWAsEHT5OWCqhNN rW0FvfZ4yEdQb ZAEiRIXaQ4StgDKdJSwfE 243UWmqHlZ1RXQkmaUoH8 IwMSDbrUobEvN6y0V2Bk1 JPRTxBL33FXC2 yPD9OO89JC78A1XnVbpof GFibGU+PHRhYmxlIHdpZH RoPScxMDAlJyBzdHlsZT0 aJq2sEVHnQJUk qObmyPAbFbMof3ojCXImT DzuAZ8glPklQ5VosDA6IS Exm1c3Ul84O29wL1HzuWQ +WGPqaJH7gXF8 jM2fSqPwYmM9NGleU818H iQsnRRkPktuw5ipz5rpjP q0RuY4TXZxafOigMreHEL 2v8KcYc22U22u IHdpZHRoPSIxNSUiIHZhb Ptgjp6fcJ5bZa0+PGNvbC W7oWW4pF7sJqRnKnK0MJz hN537NjEruAFf Sfadx3jlk2dzgTe0HaAaW MObszEiyGxvDGE2p1DwMa 38M8KufLany4LkDus4sx2 5pLGmy9N8aIG0 A8XqLOBmietdsLFolMkcN S3sZVNaydzyWOXneL1kXJ GmA5t4CyFjXsT4YYwnH0P jwbO1IDWkbTOp MRpyWCY4V99zb6W7VIGzM XEvBYN8dSU6zO0foHaglx ogbGVmdDsgdmVydGljYWw lFCztO204QTZk mDmlNVLrjQ2lREQjcVJkb JtlEC7eGGZreiukPiDPUa UFSjYLXRDNX7dCMhPNGL7 2AJ68fBIoh3K4 uAJ1U9QsUYFtwbgauvotz ZH6DJBlNDHdbS73nPVaIZ axGd1jp6S2a955KPSfPZQ knA47Ma9heJtd XYTnfCCDjH9apwbly7ksf sbyJrOkOGWuKBa0MGz6LY MepSlqIfJcXZA2ZiL6URH 9rPTogB1bnRwp hxbpgE3pIfu+MDkvMDMvM Lq7UimcsDQ+ULXvDJD0iH hfANryGYTarC0tNQYjL2j 0LdApBzO2IVix R5KaUWUrhcspHp27pI3cM zQoEhB4XWjuM8UfwsU7NG FgiIEaFVznRDO7D03kk7S 5VHCmZEAzHAF6 jKQ5rE0hwLriqyahqSUbl DsgdmVydGljYWwtYWxpZ2 93ZTUcvYeeXmK4VSpdVCL uPR39GT89jIBo f3V3zHX7G0NmJLSkvxfgi gtkpVC2NDWzELKbtI73aX HoWTplTv5kp1T8j742BEU iTBTagD40Yj9d xGjsYIHwzFSQeS3ymroos 2nwjorqVbLhBDIkQGf8SB p7QPPdsPfdTgXjVTE3LqW 0KGA1sVFnpM8k iNubdmbqkY1mZcb+TWFsZ TwvdGQ+CNQpBEB4yDveZQ nlGDSdxA2jPWCnS1r5SjK zSjS5GGilR9Gy GPDfukukTu69jU8sLyFjF pF7JIcjK6DaxfK7EPRaqO EcOQnuBIZ8N96eq3H6OGI lFMSqZAR5gLP1 vI9ukPiczjjqnPAvkEfgs mWcwVqyPPdeLQpnU889DS SvlVgnMn47rIZirHxbwaP 8R1VrQrjnnQD+ JY19QTKeNK29lRZdcUBxc 7eueBe8IdHyCCMxIMO3vJ nmRAaad4HdRRFnY68akYA wp6X8OEBwkFtk bSDlKoViaBQ1bI6uXTgzm kjmq5yqziuhRhouy8ofix 47fC06Q98hENtnBRPmCWP zMCUiIHZhbGln lw1xwS6zAb2+WWVrfKV8r GK6oX1qJkYxPgX6FFymE9 43YhNxtWSfBadop3vnq2d unJy8FnEuXKAr axHksFnwYLF8c5AsOw96G 29sIHdpZHRoPSIyMCUiIH EvmElwuz4vrF4cYy4+PC9 oi8ogrv95yI97 dHI+WSYnJIJ2lNxoLAhuB DFrvU6iJFqdTqO7XGMqJu FziQ67aYHsUPrgJu0yxFd duWwwNW6iSYZx gooax467HiPci0nsSLNnb ICbSUjxUBP8J81lw7M8KG YaXTLhPIP3jHQ1pM9pySy nbjogbGVmdDsg ioBuuMtpXUwsWKgnP893S ORlzDslEtRabPMsZ1xkwu NSMT0uArjsfKW+PHRkIHN 0eWxlPSdwYWRk qJ8aMDUxC0a2ZlRuEpR4B SyoO1JkxdI2SSUwxVPlGW EceUBVdJ5woasze4oiyko gIzAwMDAwMDt0 VAv5UKLvmYssKnMoKUT3T xO7NGM9zXRebK6jvFrhpw heyQ7vUgq+RklOOjwvdGQ +XHQyGDO6iTjq OZukZRJlcL1vTMDlG4k7Y yWnUlX0RQgtX3WizbX7HM WhhWAaKIXwkHCCpC8lmzs yi0ljoexhGdMk QDPlLJd5LWa9OKQcdMviV sNcXMJ5ElH7DDM1kDIqcO 3xpIxjiifmvX9kXmp+TVJ OOjwvdGQ+PHRk APY9uRibSVdhBGXqhH2rK JMbP6f9WiSgOoN1JCypT6 LkrvR8LIAorITtOBYivPO MdV7enlsbn5dm wdqeRqYhUQOkUSl5VMq9C ZKdxFigXfGuEXA5QkG2DS P5uUFxiI6arMdzsmbalP4 wOyc+GDY0ZSU0 TL38LE75E3NpEjtfyGUpm +PHRhYmxlIHdpZHRoPS ugNZPoNhJqsXeyUE7wHa0 yZGVyLWNvbGxh cHNl (more content not included)... Normal [facility] Prescriptions/Work Noteson 1 Prescriptions/Work Notes [id number]# 1.00CD:127 Normal [facility] Consenton 04-21-2021 Consent [id number] 0 [id number]# 1.00CD:127 Normal [facility] Patient Eval Forms Officeon 04-21-2021 Patient Eval Forms Office [id number]# 1.00CD:127 Normal [facility] Patient Eval Forms Office [id number]# 1.00CD:127 Normal [facility] PT - Consentson 04-20-2021 PT - Consents [id number]# 1.00CD:127 Normal [facility] Patient Eval Forms Officeon 04-20-2021 Patient Eval Forms Office [id number]# 1.00CD:127 Normal [facility] PT - Consentson 03-31-2021 PT - Consents [id number] 0 [id number]# 1.00CD:127 Normal [facility] Patient Eval Forms Officeon 03-31-2021 Patient Eval Forms Office [id number]# 1.00CD:127 Normal [facility] Physician Orderon 03-16-2021 Physician Order [id number] 0 [id number]# 1.00CD:127 Normal [facility] Sleep Studieson 2021 Sleep Studies [id number]#1 .00CD:127 Normal [facility] Coding Summary.on 02-23-2021 Coding Summary. CD:[id number]:[id number] G h0bWw+PGhlYWQ+FO2HZAP wH93noIKcyW5FJ8aWKX1P JBXHFGXGTA2ITP8idPF4X RyuC9VolqFi BpwexHLjRL17QPy2AHW2s GghAVlrvV4hsJCcM3v7Tg KqTR92hL12DGkkXDFkDsD 3LjZpbjsgbWFy T6lrVvQiaRTwPdo+PHRhY mxlIHdpZHRoPScxMDAlJy DfuNdpYN1iEf5lBFJlUDE vbGxhcHNlOiBj r9dtXXUkAYfkNK2jrYkqR 9WdcDS1JFLdv3i0Cd13mJ I+WOXwDGX8oYduNOwyn34 8JhYac5uwCCK3 rXXjPJnvWGF7O64ob2U5Y FPdPDTtAVM7aUQ6bF8szK bczwzvP0OodSBdAyG3WWL 4bSLaeY2tmKim axdqvM0dFyb+Y93QUK9XE BVYZF9HCdw4I7WaQhcygN I+BH50NOSpFO84sMFunMT ae4xjnRo8XwVy CODoKVG7bZunKRdud8QsU CHkL56teOElz3Y8CIFrhM ggqZLhFfPkuUV3jP4tFNi kknatj7vmvoeh Gszkb2cgyb11vR64R81pR IboAYKhQLB3LFFkTGTjkR zxyp8crU5xOr1+WZkdt7z ct0mmdTt0GuNl PEZmcxKejOpyYPJ8p0ScZ k50T1MdtHpkb8ImZme2bh 84hBNrq6Y4fWF4VQhuRSR poI6qIKibAhS7 XVMzMpKylN59iGBlNIqvG o6dkSgpoUerWI8nICYpzr xqZDWcgV9sERNceZDorAm sDA6oUXNcgctb t825AdNoPPS2OMJnkNDcI 2GohJ1hYaIoFPMcVTJhW1 BexJYgNOqqW243GCjkKfN 8FAWywgBaY5Sz QJSdjKfxAcS6f0Z0Tf4Tr 2QmaxfwCFU0QFilAXB4Gj Y0YeGvNgW7I9GhXge9MVT qkGefYZ0zC9Ck YTMstzvsdqsowZV3LTJpE MTpnW26uNUnJVzeNa2vu8 T5k321XUVaDEBejN29Zw4 udDogMTBwdCBU zF2pnbnxg8wujokqMpMzS JXiAUg0GEd8PNRgcIlxFt MkXHV2ZgW2JJF6sDEldH6 evNdtnrwkaS4h Oyc+R98auE7aBAS2TWR7m ulcRIStfsPoDT67CI90S1 RyPjwvdGFibGU+PGRpdiB atGgnDP2oIaDr w9iqr7LlGArtO7PvRSEwX UexRka6NXVlOWP9pZL7zB 6cGMRdGMcpw0N3mYX3E6S jsoKaws8cf4gx FUUcMPciN03oeEQne4U7Q SHbvUK1YMHnvWbvPyCvpO 93Oyc+JDCbxCzhz6TaDxv xi5ugn5mzfIp6 BvIfPXQdsoHfrSxlRJH2u 2TeUq33N71iGJeaBTZmHL WvQBPwQQSauGiyiz4pwM2 wIi8+PGNvbCB3 gWX5lY6sOELlQyS9XXseW 013IrGyyPDfTuoml0mvk6 dmzOu8QjMhPCImdyNjvFt uQAT6i8QsBj21 O18lJSzmRFXdMYCwKEJkB VMzpJeglw8wpF8aPn3+PC 3po3hjtg86jX27qTV+PHR qJTS4oEgyJRab FBXdjE9qSTiyGaR0TPBhE zWugO97xDHfFDbgOi4wyU cemAthOW6uBZOollxzs92 3FeOow8cnSTBi zBVpZBjgWZY0E42bu5Q2P ERhSVHzHES1tFN5kQ9bsR lnbjogbGVmdDsgdmVydGl uALkeDMngF389 IHRvcDsnPlBhdGllbnQgT eJjCVi1Q2InEny6PDYvyT hlQR6yhGEzHKyyNg1rmKh izDukIL0rGWTz ftund958NnCtx7fbSEKcs AHfQTwmPWO9D65zm6Z2ST GlQWEqSVZ6xZN8bM5gjMy nbjogbGVmdDsg vsIxdCihUWdzNPniS227A HRvcDsnPkJpcnRoIERhdG N7MQ03UK49uCMah5O8pAU 8D5MnRUOvqnld xrohwIR9UWBfZVVzhR04I w5hyWktNr6yBXHyLNV5JU BdzGIdC4LwmA7yIiRyYEI fCTYeJ1HswOPo CBdfN882AWvxNuX6JXVyy iNmK7WbEEKjwSgrUkU2c7 V5Ds5VR3V3IZ95JL09vBU mj2R7iHO3L0Vz DZZnhmaobfolzKE0EJXrH LYfhD87Qt1fdLpsKu4yGA NhSUW8IOUisDIvY5QxbG4 yOiAjMDAwMDAw A9MpvJRfONprZ629PIeuL iT3MWPwtgYcJ5CeMDIdzZ ojKcD5w7S1Ef2AFOw5EH1 1JX90gEYkl7X5 nGQ6U6OsCVJkzwsgdbpix ET5EJSqRWFkbS89Dc5yuR wmQb9tHKKiCJL8CCBqgON jW7SygF2fIyPr NYEkOXQvG5LeeGEtAEbwV 914NJykZeO4IKYfpsPkD2 EwXTHxiFpoHqZ0t9I3Jh5 PKOViUR87GSW4 jHC8SK43IH21U0HrDgyug GFibGU+PHRhYmxlIHdpZH RoPScxMDAlJyBzdHlsZT0 fLb8tKBPwQVOv oWemzATnJwIcu8pcHCBlX VflRW4kgXagO4FyoNU7KO Rec5z8Zu94N27dV6RmsYW +HMJapBV4mPL2 iP5vIiEkFkL5EUduW240Z oMpeJVhBrsfx3btz0tveJ t6HnQ0PFSywmFwzSrySIA 5t1KhNh67Q03w IHdpZHRoPSIxNSUiIHZhb Vasvl6xbM3kMr3+PGNvbC K7nON7aE8sJzJdVeK9BUq kA528IyYbfUBs Wswpc0bha1optPy5CvNpP FOyqhEwjGutDOV4r3QaIy 40M8DrmUetv7GqKjj3cm2 2zRHvh3L7iEG5 V1GoBLJjpyxgySRlxGyoP Y8hIXVrxgqvTPAqzZ8fRA JiS5s3AkJfCaO3PRekH8I ndyA0EBHdeDPw JFxtLHF6B65dt5M3TSDzV AFsYOW5kTF5kF9ctYxots ogbGVmdDsgdmVydGljYWw aHOfzY227DWEk yZwpXUTmxS8dPDCuoMPel HigRB8zRDYzocffBoCFOu FBRnWKGPDJN7zHVoRELM0 7AG36uDNth3A5 lAU3K4SpMAOcvfuyncqov GB7FYGeARFlmC50oKCjRW jkNq3je6V9i462AUBrGGR egM54Ko6lrEjt PBZzgAIZoR2cwjwvg4iuv rkzQvMoJKQiRUt1AWd1HQ NhmHdgIiBnYKD1LiS8EFA 1cBLumM4cwEon ivpepP7zJep+MDkvMDMvM In3YieuoAK+TADsMWK9aJ ouVKciUVTqxD7gVMGeI1a 8ArUpMvS8AWhx Y4CuUMVoluqjHe58nM1vC eUtRuG0XPwqP5MyicS2GV KmmTIiEGiiHHP3S14ya2U 8AIMhPJYpTQO9 rZL6iO5ikKzpeojzvQIkf DsgdmVydGljYWwtYWxpZ2 57ITUfmLeeQiW3HQujBZG oNL54MP77cYXy h4F3vNR0V3CkTMAofuftd icqlEA8XFJrOCDyaO01tK EjVVomAy0wq9B3q918BTS oAIFzdJ96Ix3i qTauFHVqbPCBwE5mjuaih 1rdtlbtKzJaFJHoFWb2DM k9JIKspWpgLoUcCBV8LmV 8UHD3lYJphI0j pBwxechlpQ8iMdr+TWFsZ TwvdGQ+ZLNkQVG3vRbsGU xdRELfwK1wLXHwW3r7YyS yGvE4DVokV4Gj ONTeptktSn10zV1lBwYzN bL7ZVsyU1SmlfF0HHUnzU QdQLajTID2X96ab7I1GCS tDFHdWNI5wCC9 uU7qdOlxlyndaCZmpErfy hVvgRmpOCvmYKqkY252UD GtqSttKw66aNDwzJnuthT 2R8ZdJrbkjJA+ PF77DXPyHQ02oGXzqXVye 0nvhJn0AbOaGNDtANT3iK gsILnpd2FdTFIaR45xtZV gw4R5EEPevGzc iPHiRjJjjVH2fB3uVPmtu cvew6xefjflGocoz9srhs 52gQ83W18wIJtpMFOpYRJ zMCUiIHZhbGln ex5anX2tQn0+IJAwaCY8s KQ9vU4yHyMwZcJ0HTkiN6 88ZuUsfEKkNknnh5mzn2f akNh1FaQwLMTn lhQchKcoKXD8b9RdOa47B 29sIHdpZHRoPSIyMCUiIH CmnEodpo6rzM3gSn3+PC9 bv6zies22bW18 dHI+GGOeLFM1nRfaXWamE FNwgD5uUItcJmB3QTZlVe GvsB70zBHmPPwxKy7wtCt fyIutQR4zQONx szape848QlDkv8uzXJIyp ROaAPsjHXR4R21vz3Y8ME FrFJEyGJH8pGH6wM2xyLq nbjogbGVmdDsg hkNeqIcbPRssGMqlI071X NUkuEiiAxOsyXTqP5ootk HWXE6yDuvptPU+PHRkIHN 0eWxlPSdwYWRk mD1mUQMeC9p5OzUqExY5T LvgS8DtqnY7TPTerQWoLB RmfIPOoB0pouuad3ayeby gIzAwMDAwMDt0 QKr6XVOnaUjzVvOzYOT8N vT8WTE9nFEiaD6laLpcaj aecU1vOfi+RklOOjwvdGQ +LHJpSQM0vYzp BVlvGDCdcF8bBIJiU7j0L sUjHdI2YAbxQ3UhbmO4YT RvmZUcIHGyxPDJcU5iixx to8mbymdlLyTk WHHwAFd3KHk7GWWtqBawX mYxNJT9MnE7AAE9pJOawH 5hpAmgrxenxZ5dRnp+TVJ OOjwvdGQ+PHRk EKS0qOcrKFbqQACcbJ6eQ LAsE4h4DrBkRtJ4GSsoX5 PmuzK5QQKoePDyUOCqcUY PgL9flblwy8id tsvuLjJqLFLqZWx7OXb5U DDoiNeuDsUsGPZ1EfE5RU P8bFSfiU5ujBojetsmgW7 wOyc+IVI5MQP9 BS35TE94N3QaSokakBSoz +PHRhYmxlIHdpZHRoPS zbOSOoAzTxgQkdKS8yYw9 yZGVyLWNvbGxh cHNl (more content not included)... Normal [facility] Coding Summary.on 02-22-2021 Coding Summary. CD:[id number] G h0bWw+PGhlYWQ+GK4VZBD uX88mlIIhsL6NK3zSFS8Y RSTXAVVYGM8UKF4xoKU4U PsxU7ZcmkDs WjnwdKGjJU27YUn9OCX3t KfpSHmahB7wxUUiG5i2Hu PhNK10uK45WAhfWBGyJyW 3LjZpbjsgbWFy I7odNfXxgVIcMtv+PHRhY mxlIHdpZHRoPScxMDAlJy PhqWqrDI4iXc1tFZJwEMC vbGxhcHNlOiBj j4qcTADqDTvhPO6mpGseT 2SalJC9EZKbi1p2Xs81fS I+GTFuBPY0tSuiOWoby84 5UcTub0twZAQ6 aETrJYasAPG8I61rr6U7S KUmWDFwMAV0hHD2tH0ueE dntkdqB8WavNJvStK5DWO 7iPRhhN1uhPty tcaqpF6lSxa+Z09LOZ6OY GDJBX7ZCed3J2BnDfnqdS I+PR02ERCjWM35nUIsjHO rx1aalNp7AaBy GZTiOOT5bWiqXMdaj5IbA STyZ42faIBrk1B5SQCtlK vsuIYfYmEtuRN4qK3eBNl joflma7lhqztm Egyir7gpxm46tQ08Z33eR JuxRDOsHIJ0HTPmERUyzE mzdw4weS6lRq7+XYxsb8n gl0vyhQk9BtAv EVWshbJzsAvzXNW6m2JiE g90B5SqcTfax6VrXtf0kq 78dWQud7S8tHK0WGxnEFS uvK2mTUckKdD7 ARJmBkDuqQ22pFAdYDbpF u6lkOetpCfbQG0kYLCzdz cvNUEzkV7iRDMbiGWqdRm bDB9mMCBucmge g103OqJmWHG9CCJoiRLfL 8OziG8rUdRiWAKaXJUtI3 HjkWMzJRleX949LYjaMdM 8XQOgroGyF6Ci RZYysBqfRtN4i8G2Mm8Ss 6HrhechPGW6LOllCHB6Ln V5BlOoTqC5G4DqJar4RYZ rmBtwGY9xQ4Cb WGLhkmlpforqhJJ3LBIjN GEzxE15cLYmDTywAp1bk4 I8u724ASVuJTNirB47Wm0 udDogMTBwdCBU rN0ogfksr9ckwoceUbCbX JBtOEh9THl7HUJqsFqtRd GgQQI0SfZ3LBX3zVCokG9 ypJvhwzgdmZ9f Oyc+J64ssT4kUVI4WKO6n loiWQVovaVjQO25UA23V0 RyPjwvdGFibGU+PGRpdiB zkBowUG3pYySh y5sbf1KkJUqzK0KnFGKcC GwbCgh7ULFnIDK5hKK9vB 2yZJXmNJnla4V1rSU0N6I aqpPqwd8nv0qn XDUkCOrtH45nmHXdl9X7W IOyrDA9SOAnxFfuArUcrB 93Oyc+FHLetXrvj8LiVbl zw4cal0mtgPj5 BzJnVABxobMxxRzyOIK4g 8HxXu43S34dOQxaORRrQT QlXHJgTBIitRmcdd6xsB0 wIi8+PGNvbCB3 gUS2qC4wUAStCyQ3MYyrK 705HcZyfKIyMaqdz8hzg7 cmlFu8VsRuUENpcyTgdZb pDIN2b8JaFl37 D13jNSddUIWrRGIoGMVpS LPqoIunxv1neU6aHs7+PC 0qa2mxhf37uZ60sWR+PHR aYHU8hIolRHwv TXSyuI2gEIdcAeH1HJXwK eTbdJ49yFUnTEgvDl5rtB vcwVbmRI2dSUIccisyi94 3TtKzh7chIMHu hKYqPZazJEB2Z15yp4J5U JXdDJNdPCJ8tIM8aC6yrV lnbjogbGVmdDsgdmVydGl yYWffUXevW936 IHRvcDsnPlBhdGllbnQgT dLvKIw3B4VdEub2ZZYdnC hoIS8pjKGhWIdnOl4tvCr isSfmGW1eLWGs ompii568HgTeq8dfRXWmu LQzCHbqKMJ8B92my7D2ZY IgHWPmNBY8hBY6rY7luBo nbjogbGVmdDsg ebHqtFniCPqjCNnuD908C HRvcDsnPkJpcnRoIERhdG O7JT83OH89iTHko5T0vUO 8G6AcVDYswbyq rhjqaQD0HRJhBOEbiH52C b8fhLysNs7yAKHvXUA6ST WpzCZiT2WdjO8cUlVsXJT vWTTnO5DjqVQd SCzvQ111KUviUkJ9ROGlp eVaB6VqBSNunIwwFjN8z8 A5Jm2AC9W6YN09TU53wEB lj6T8zAB7J2Zr QKKlpeafwqdwoFU2UHQuN LNinZ35Kf0baSqqWt6uJI HxLEB5BYFfxDYuC6FlnP4 yOiAjMDAwMDAw T2DrkZDnFQniZ680FMpjX bA3PGNdwoCiI2DeJFOamW qxLjL1q2W9Os2FQVk5KE7 0MK01iUHvy2N7 gJW1Y9UnYCEidtslbxqaq YX1KDWcIISguA25Fm2whJ seQb9kDVWaVTI4UXPbaAX kC4KkyJ3aJrDu ZCRhILCwY8KfpHXhQEmdR 845CDkoKxF1CPKurtCfO6 SxNCKqjGtgSbE0p7Z2Wt1 TPYMfXY25KFZ6 bCS9RE49QF34V9DgRgeme GFibGU+PHRhYmxlIHdpZH RoPScxMDAlJyBzdHlsZT0 sLf6xRKCaPBKa zLaxiWNzGeGqm5hwJDNvY KvtST1tgWrmI7FhbVB9TJ Tgc2i3Ge64U36nH5XtxKC +YGRkiXW2rNZ1 yH6aYeTpCmK9KZisS281Y zGprAVuZjfvh9fev1ofgB s5TdQ2CQOavqYgbNtwZQF 8q4SeWu99C84a IHdpZHRoPSIxNSUiIHZhb Qjwmy0imN1dEx4+PGNvbC E0nBN8iR5zEyMhNgY5OVg rJ382ZhXaiGNc Hgktq6avq5tpaJy5PySnZ JFpqlTtdGnnJGT7n3YpZn 91R9QgsYeen8CaScz8ae3 3sGVzy3E0xFM5 P6LoSXOlblduyVAneIdrF I4rTBQmefarMFFwxX2xKY HjK0i4PkNfNbD7EKjfX0V svwC6WHCqaPOh CJniSHQ1L82vz8G3KBSvQ YVsUEK1xAC0rW7hgMzlfl ogbGVmdDsgdmVydGljYWw rSHmeU050PHFi bSauCMAxcI0pSINtbGCjp OtwVZ0hAIIlbevbIdNMKk DOSyQEVRYDI5zPUwACFT7 1WQ60hGAdh8F5 wVM5Y9YbAQVwzfumteqou SP8LDEuUSYbkZ12oXUtXR qgKx5yn2I5n667EEDhSJC gaK70Ze1qvWha CKQqoTPDkD2ocabut6gnu gvhPdJhVTHbEGx6CEx2AL OtfYxwIuFrFHE6SyX8PKC 6fPBxcC4kaJfm vmkeaL2gXfo+MDkvMDMvM Vv3NruboKE+NYUjOGQ3iT bhJGxfBXIyyM1nIZSqG5k 2HiCvUzL0ZIle C6NbAAFwjsnnKv87dN9oT vVlRrK0MValB0TwapV9UY LmjEIsKWwmCFB5P25uq4K 6QXCzQCUwTYI7 aBJ0nW2eiWfhxljooIHxk DsgdmVydGljYWwtYWxpZ2 71RXGauVdoGtF6LCyxXMY mJO71JC64iYYq q4D3aXP4O6IgZQEypprwj cgxzFP0AIBbCPQkvG24mI VgNSbgOy6jb1N7c143KDD uODRgwU23Jv8t oDfqVHZmbJDSwM6brksmp 6ajdligUdRfPTEgSJl1HH v6TRDbpKtlWhLfGCJ7SmF 1EVK2cAPkgZ9g jNjuqqmzqI4lKfe+TWFsZ TwvdGQ+DKFvBBH7tPykDG epDQWygF6hMQNgR2t7ZuD sJpH9EYbqN8Kx REYccnuuRk60xE8nJzEkE kS5BJnqN6IlaqX3DOJxhW OpCJxeMBT2B54gu8E1PHI dUNIiKKW6jCT9 dC4dwTvfcfzfuEFgoMkzy fMwaMnhUYapYLlrW591ZL SfjLzyUd31hHYraUpdeaP 9P9OfSotyjTA+ BJ25TBBnQD16lXEwmNQyk 3oznTq8ZyRsZQSfYKN0tK tmTYtog1XoQEZaS44scHN ty3L3SDEpyMmd xBYzSoCldZV0sT2lEXjzq ykvp1ulmpwqIqbid6wksf 66dX45D67wGZtjTGHnYQP zMCUiIHZhbGln sr9qhM5uHl2+JGCeyTB8n OB6nN4bXfHnZbC9MUwlK6 63IlJnzNBzMffgn5ntu7q utFz0HkZcGOXm fbJcgHmrGXU8c5LfBt06Z 29sIHdpZHRoPSIyMCUiIH IkvEtvvm6rlI1bDe5+PC9 ci7dyzi57pZ91 dHI+LNSiDIM0vIwsJOprS LPigE8jYNnlTdC0RASfHk UqhP02zTLmUTixVi7lzGm vzIrlWU3kDQOq tkqwv960JmOjd7xpGQYiv HLtTDnqZZK6U09cs7W6JE XnHKOpDET8xVK3dI9tqQf nbjogbGVmdDsg ujVwdKpfZQejCGprV693M EVrpDqfNzFosRRaU9xfdu CWLJ4iBirgjKW+PHRkIHN 0eWxlPSdwYWRk tZ4vSTAkJ2e9VqFiDaB7F SmtZ9QufjE7SEGpxSWuSB ZxoFVHeY6fkpazt2selns gIzAwMDAwMDt0 AUz0KTMqcYvmQmYfQMC4G vV2MUX2tBCsiW2flGvfxp wiwC0nMay+RklOOjwvdGQ +JUFmCNZ9rEbh FObrOBUqfT3wLWFpE9b3C gDwEyS2XQorZ1TquvN5LP InvUUyENKufSRPaH2zadx yg5avjjdyZnOm LWEkYVg1JYh4GKIajJlpE oWdBNH0InV5ONZ8jRUakK 9zzNnkeruskR7fCfw+TVJ OOjwvdGQ+PHRk OZU8pUeuIPonGWUheL0nM TAgR7v0ZkTaBoW1KApzJ4 QmkkM0UDLhuFGgKZVopHC ItC2vggrqx1jr xgpzPnKeABCbGXu1RSb5H BKpoMbaWnTzOFO0JyC8AF D9hJZzuW8nuWfghzxtvR0 wOyc+BTV0CQJ2 YX54ZU19P8IiCtvooIEfl +PHRhYmxlIHdpZHRoPS riAHDlKuZrjZamCY3bMd9 yZGVyLWNvbGxh cHNl (more content not included)... Normal [facility] Patient Eval Forms Officeon 02-21-2021 Patient Eval Forms Office [id number]# 1.00CD:127 Normal [facility] Consenton 02-20-2021 Consent [id number]#1 .00CD:127 Normal [facility] Patient Eval Forms Officeon 02-20-2021 Patient Eval Forms Office [id number]#1 .00CD:127 Normal [facility] Patient History Officeon Patient History Office [id number]# 1.00CD:127 Normal [facility] Physician Orderon 02-16-2021 Physician Order [id number]# 1.00CD:127 Normal [facility] Sleep Office/Clinic Noteon 0 02-15-2021 Sleep Office/Clinic [...] MOREAU, Beth Ramirez, PUL, LUZ MARIA [address] [facility] [place] [address]- Additional Instructions: after his testing is completed Problem List/Past Medical History Ongoing Smoker Historical No qualifying data Procedure/Surgical History broke leg. Medications Brandywine 325 mg-5 mg oral tablet, 1 tab(s), Oral, q4hr, PRN Allergies No Known Medication Allergies Social History Alcohol Substance Abuse Tobacco Immunizations Vaccine Date Status Comments SARS-CoV-2 (COVID-19) mRNA BNT-162b2 vax 09/30/2020 Given Prophylaxis SARS-CoV-2 (COVID-19) mRNA BNT-162b2 vax 09/09/2020 Given Prophylaxis diphtheria/pertussis, acel/tetanus adult 12/05/2019 Given Normal [facility] Comment on above: Result Comment: Elec tronically Signed By: Beth Bradley MD\.br\Date and Time Signed: 02/15/21 14:[address] CERVICAL SPINE WO CONTRAS Ton 08-01-2020 CT CERVICAL SPINE WO CONTRAST [...] Chino Mcqueen MD 08/01/20 Final result Normal [facility] No acute abnormality of the cervical spine. Multilevel degenerative changes. [facility] ID Claudio, [facility] Incoming Radiant Results From [employer] - 08/01/2020 1:22 PM EST EXAMINATION: CT [...] of the cervical spine. Multilevel degenerative changes. [facility] CT OF THE CERVICAL SPINE WITHOUT [...] There is no prevertebral soft tissue swelling. [place], [place] CT HEAD WO CONTRASTon 2020 CT [...] Randolph Roman MD 08/01/20 Final result Normal [facility] Claudio, Mhpn Incoming Radiant Results From [employer] - 08/01/2020 1:20 PM EST EXAMINATION: CT [...] fossa. 2. No convincing acute intracranial abnormality. [place], [place] EXAMINATION: CT OF THE HEAD WITHOUT CONTRAST [...] of the visualized skull or soft tissues. [place], [place] 1. Streak artifact from dental amalgam limits evaluation of the posterior fossa. 2. No convincing acute intracranial abnormality. [place], [place] CT THORACIC SPINE WO CONTRAS Ton [...] Panfilo Middleton MD 08/01/20 Final result Normal [facility] Claudio, Mh[facility] Incoming Radiant Results From [employer] - 08/01/2020 1:29 PM EST EXAMINATION: CT [...] fracture or malalignment of the thoracic spine. [facility], [place] EXAMINATION: CT OF THE THORACIC SPINE [...] SOFT TISSUES: No paraspinal mass is seen. [facility] No acute fracture or malalignment of the thoracic spine. [facility] [employer] ID XR ELBOW LEFT (MIN 3 VIEWS)o n [...] Randolph Roman MD 08/01/20 Final result Normal [facility] Claudio, Mh[employer] Incoming Radiant Results From [employer] - 08/01/2020 1:11 PM EST EXAMINATION: THREE [...] the left elbow. 2. Minimal degenerative changes. [facility]: THREE XRAY VIEWS OF THE LEFT ELBOW 08/01/2020 12:51 pm COMPARISON: None. HISTORY: ORDERING SYSTEM PROVIDED HISTORY: trauma TECHNOLOGIST PROVIDED HISTORY: trauma Reason for Exam: fall Acuity: Acute Type of Exam: Initial FINDINGS: No acute osseous abnormality seen of the left elbow. There is minimal degenerative changes of the left elbow. No evidence of dislocation. The soft tissues demonstrate no acute abnormality. [place], [place] 1. No acute osseous abnormality identified of the left elbow. 2. Minimal degenerative changes. [place], [place] Vital Signs Date Time Vital Sign Value Performing Clinician Facility 09-19-2023 08:30-0400 Body height 185.42 cm [facility] 09-19-2023 08:30-0400 Body mass index (BMI) [Ratio] 25.6 kg/m2 [facility] 09-19-2023 08:30-0400 Body weight 87.99 kg [facility] 09-19-2023 08:30-0400 Diastolic blood pressure 72 mm[Hg] [facility] 09-19-2023 08:30-0400 Heart rate 57 /min [facility] 09-19-2023 08:30-0400 Systolic blood pressure 162 mm[Hg] [facility] 06-06-2023 10:15-0500 Body height 185.42 cm Adriana Mejia Other [employer] [facility] [employer] Other 06-06-2023 10:15-0500 Body mass index (BMI) [Ratio] 25.54 kg/m2 Adriana Mejia Other [employer] Other 06-06-2023 10:15-0500 Body weight 87.82 kg Adriana Mejia Other [employer] Other 06-06-2023 10:15-0500 Diastolic blood pressure 70 mm[Hg] Adriana Mejia Other [employer] Other 06-06-2023 10:15-0500 Systolic blood pressure 159 mm[Hg] Adriana Mejia Other [employer] Other 04-19-2023 09:30-0400 Body height 185.42 cm Adriana Mejia Other [employer] Other 04-19-2023 09:30-0400 Body mass index (BMI) [Ratio] 24.7 kg/m2 Adriana Mejia Other [employer] Other 04-19-2023 09:30-0400 Body weight 84.91 kg Adriana Mejia Other [employer] Other 04-19-2023 09:30-0400 Diastolic blood pressure 77 mm[Hg] Adriana Mejia Other [employer] Other 04-19-2023 09:30-0400 Systolic blood pressure 159 mm[Hg] Adriana Mejia Other [employer] Other 01-06-2022 07:59-0400 Body temperature 97.7 [degF] Kirill Alfred [facility] 01-06-2022 07:59-0400 Diastolic blood pressure 88 mm[Hg] Kirill Simon [facility] 01-06-2022 07:59-0400 Heart rate 60 /min Kirill Simon [facility] 01-06-2022 07:59-0400 Respiratory rate 15 /min Kirill Simon [facility] 01-06-2022 07:59-0400 SaO2% (BldA) [Mass fraction] 98 % Kirill Simon [facility] 01-06-2022 07:59-0400 Systolic blood pressure 202 mm[Hg] Kirill Simon [facility] 08-01-2020 13:03-0500 Body Temperature 97.59 [degF] [place] 08-01-2020 12:35-0500 BP Diastolic 73 mm[Hg] [facility] , [place] 08-01-2020 12:35-0500 BP Systolic 149 mm[Hg] [facility] , [facility] 08-01-2020 12:35-0500 Pulse (Heart Rate) 76 /min [facility] [place] 08-01-2020 12:35-0500 Pulse Oximetry 99 % [place] 08-01-2020 12:35-0500 Respiratory Rate 18 /min [facility], [place] Encounters Encounter Date Encounter Type Care Provider Facility Start: 09-19-2023 End: 09-19-2023 ambulatory [facility] Work Phone: Start: 09-19-2023 End: 09-19-2023 Patient encounter procedure [facility] Physician [facility] Work Phone: Start: 06-06-2023 End: 06-06-2023 ambulatory Adriana Mejia Other [employer] Other Start: 06-06-2023 Office outpatient vi sit 15 minutes Adriana Mejia [facility] Start: 04-25-2023 End: 04-25-2023 ambulatory Adriana Mejia Other [employer] Other Start: 04-25-2023 Telephone encounter Adriana Mejia [facility] Start: 04-19-2023 End: 04-19-2023 ambulatory Adriana Mejia Other [employer] Other Start: 04-19-2023 Patient encounter procedure Adriana Mejia [facility] Start: 01-13-2022 End: 01-14-[address] ADRIANA MEJIA Facility:[facility] Start: 01-06-2022 End: 01-06-2022 Emergency department patient visit Kirill Simon [facility] Start: 01-06-2022 End: 01-06-[address] LENA MARIE Facility:[facility] Start: 01-03-2022 End: 01-03-2022 Patient encounter procedure ADRIANA MEJIA [facility] Start: 10-09-2021 End: 10-09-2021 Patient encounter procedure Beth Fischerd [facility] Start: 08-01-2020 End: 08-01-2020 Emergency department patient visit TOMI ESTRELLA [facility] Start: 08-01-2020 End: 08-01-2020 Emergency department patient visit Tomi Estrella Work Phone: [facility] ED Comment on above: Closed head injury, [...] - Td) DTaP/Tdap/Td vaccine (2 - Td) [place], [place] Start: 03-01-2020 Influenza vaccination Flu vaccine (#1) [place], [place] Start: 2018 Pneumococcal 65+ years Vaccine (1 of 1 - PPSV23) Pneumococcal 65+ years Vaccine (1 of 1 - PPSV23) [place], [place] Start: 2003 Screening for malignant neoplasm of colon Colon cancer screen colonoscopy [place], [place] Start: 2003 Shingles Vaccine (1 of 2) Shingles Vaccine (1 of 2) [place] Start: 1993 Lipid panel Lipid screen [place], [place] Start: 1953 Abdominal aortic aneurysm screening AAA screen [place], [place] Start: 1955 Hepatitis C screening Hepatitis C screen [place], [place] XR Lumbar spine 2 or 3 Views [facility] Immunizations Immunization Date Immunization Notes Care Provider Fa cility 04-19-2023 influenza virus vaccine, unspecified formulation [facility] 04-19-2023 influenza, high dose seasonal, preservative-free Adriana Mejia Other [employer] [facility] [employer] Other 09-30-2020 COVID-19, mRNA, LNP- S, PF, 30 mcg/0.3 mL dose; Translations: [Pfizer-BioNTech COVID-19 Vaccine] [facility] Comment on above: Reason for Medicatio n: Prophylaxis 09-09-2020 COVID-19, mRNA, LNP- S, PF, 30 mcg/0.3 mL dose; Translations: [Pfizer-BioNTech COVID-19 Vaccine] [facility] Comment on above: Reason for Medicatio n: Prophylaxis 12-05-2019 tetanus toxoid, reduced diphtheria toxoid, and acellular pertussis vaccine, adsorbed; Translations: [Adacel (Tdap)] [facility] 04-27-2019 influenza virus vaccine, split virus (incl. purified surface antigen) Adriana Mejia Other [employer] [employer] Other 04-27-2019 influenza virus vaccine, unspecified formulation [facility] 04-27-2019 pneumococcal conjuga te vaccine, 13 valent Adriana Mejia Other [facility] 07-08-2017 diphtheria, tetanus toxoids and acellular pertussis vaccine, unspecified formulation Adriana Mejia Other [facility] Payers Date Payer Category Payer Medicare [id number] 1961 Private Health Insurance [id number] 1955 Unknown [id number] 1955 Unknown [id number] 1955 Unknown [id number] Social History Date Type Detail Facility Start: [facility]01-[facility] [place] History of tobacco use Cigarette Smoker M [place] Start: 08-01-2020 Tobacco use and exposure Never used [place], [place] Start: 08-01-2020 Alcohol intake Current drinke r of alcohol (finding) [place], [place] Start: 08-01-2020 Alcohol Comment daily 3-4 beers per day [place], [place] Sex Assigned At Not on file [place] Tobacco [facility] Comment on above: smokes 1 ppd. Sex Assigned At Male [facility] Start: 1955 Sex Assigned At Male F [facility] Functional Status Date Assessment Result Facility 01-06-2022 Functional Status N/A [facility] Clinical Notes 10-04-2021 to 06-06-2023 Note Date & Type Note Facility 06-06-2023 Evaluation note Encounter Date Diagnosis Assessment Notes May, Removal of michelle (ICD-10 - Z48.02) Pt tolerated staple removal well. Pt denies LOC or fall without reason. He slipped in slippers on an icy patio with dog outside. Steristrips applied.. Keep area clean. [employer] Other 10-20-2023 Evaluation note* Encounter Date Diagnosis Assessment Notes Treatment Notes Treatment Clinical Notes Mar, Medicare annual wellness visit, subsequent [...] to quit smoking. Agrees to LDCT at [employer] Other 07-09-2022 Evaluation + Plan noteExtracted from: Title:ED Note Author:Ramon Gauthier PA-C te:01/06/22 Otitis externa (H60.90: Unsp ecified otitis externa, unspecified ear) Orders: ciprofloxacin-dexamethasone otic, 4 drop(s), Ear-Right, BID for 7 day(s), 10 mL, Refill(s) 0 [facility]07-09-2022 Hospital Discharge instructions Patient Education 01/06/2022 08:25:56 Otitis Externa [...] antibiotic even if your condition improves. Take jnip-hhm-etaleup and prescription medicines only as told by [...] 06/17/2006 Document Revised: 11/21/2018 Document Reviewed: 11/21/2018 [employer] Patient Education 2020 [employer]. 01/06/2022 08:25:56 Ear Drops, Adult Ear Drops, Adult You have been diagnosed with a condition that requires you to put drops of medicine into your ears.Ear drops are a medicine that is placed [...] in the affected ear as instructed. Do notput the dropper into your ear at any [...] cotton ball out so it can be easilyremoved. Do not push the cotton ball down [...] health care provider, even if your symptoms beginto get better. Keep all follow-up visits as told by your health care provider. This is important. This information is not intended to replace advice given to you by your health care provider. Make sure you discuss any questions you have with your health care provider. Document Released: 06/11/2002 Document Revised: 05/30/2018 Document Reviewed: 06/20/2017 [employer] Patient Education [employer]. Follow Up Care 01/06/2022 07:58:43 With:Elizabeth Veliz Address: [address] [place] [address] [address], [address] [place] [address]- Business (1) When:01/09/2022 08:19:10 With:ADRIANA MEJIA Address: [address] [place] [phone]- Business (1) When:01/09/2022 08:19:07 [facility]04-06-2022 Hospital Discharge instructions Follow Up Care 10/04/2021 10:34:18 With:Kirk MOREAU, MANAV Vincent, LUZ MARIA Address: [address] [place] [address] [place] [address]- When:1 year [facility] No data available for this section [facility] noteNo InformationNort [employer] Other Evaluation note* Diagnosis Onset Date Resolution Status Lumbar pain with radiation down both legs [facility] Work Phone: History general Narrative - Reported* Type Description Date Medical History Depression, controlled Medical History Generalized osteoarthrosis Medical History Transient insomnia Medical History Obstructive sleep apnea Surgical History Hernia Repair Surgical History Left ankle surgery - with plate s and screws 2014 Hospitalization History SEE SURGICAL HX [facility] Other Hospital Discharge instructions No data available for this section [facility] No data available for this section [facility] Discharge Instructions * Instructions* George Alcala, DO - 08/01/2020 Thank you for visiting [facility] Emergency Department. You need to call Adriana Mejia MD to make an appointment as directed for follow up. Should you have any questions regarding your care or further treatment, please call [facility] Emergency Department at [phone]. Take any medications as prescribed, if given [...] Everywhere. * Head Injury: Closed: General Info (Djiboutian) documented in this encounter Assessments Diagnosis Closed head injury, initial encounter- Primary Summary Purpose Family History Relationship Condition Age at Onset Recorded Date/T estevan father Family history of other condition Unknown Malignant neoplasm Unknown Unknown Not Specified Malignant neoplasm Unknown Family history of colon cancer Unknown Advance Directives Advance Directive Response Recorded Date/ Time Advance Directives No September 18, 024 8:20am Chief Complaint and Reason for Visit Chief Complaint arthritis Reason for Visit Lumbar pain with rad iation down both legs Additional Source Comments Reason for Visit (unrecogniz ed section and content) Reason Comments Fall slip and fall on [...] section and content) DATE CREATED AUTHOR 08/02/2020 [facility] DATE CREATED AUTHOR AUTHOR'S ORGANIZ ATION [facility]/17/2022 [facility] DATE CREATED AUTHOR AUTHOR'S ORGANIZ ATION 01/18/2022 [facility] Care Team (unrecognized sect ion and content) Team Status: Active Member Role Status Dates Adriana Mejia MD Primary Care Provider Active Team Status: Inactive Member Role Status Dates Adriana Mejia MD Primary Care Provide r, Attending Provider Active Start: September 19, 2023 End: September 19, 2023 Goals (unrecognized section and content) Goals may be documented in a n alternate section FOR RECORDS PERTAINING TO PATIENTS WHO ARE [...] BE BASED ON THE PRIMARY CLINICAL RECORDS. [facility]. provides no warranty or guarantee of the accuracy or completeness of information in this document.
--- NOTE | 2023-10-14 15:52 | P.CN_ITS ---
Consult Note: HPI Data of Consult Patient: new to practice Consult date: 10/14/23 Requesting Physician: Brett Mantilla MD Primary Care Provider: Adriana Downs MD Consult Narrative Reason for consult: low back pain Narrative: 68yom who presents for evaluation. persistent low back pain, worsening over past several months. imaging reviewed, which shows facet arthropathy in lower lumbar spine. engages in provider directed home exercise program >6 weeks, without benefit. uses meloxicam, which helps minimally. took mdp several weeks ago, which helped significantly. denies adverse med side effects. cc:: CC: Brett Mantilla MD Review of Systems ROS Status of ROS 10 or more systems reviewed and unremark able except as noted in history and below PFSH PFSH Social History Smoking status: Never smoker Meds Home Medications and Allergies Home Medications ?Medication ?Instructions ?Recorded ?Confirmed ?Type escitalopram oxalate 10 mg tablet 10 mg PO DAILY 10/14/23 10/14/23 History lamotrigine 25 mg tablet 25 mg PO DAILY 10/14/23 10/14/23 History losartan 25 mg tablet 50 mg PO DAILY 10/14/23 10/14/23 History meloxicam 15 mg tablet 15 mg PO DAILY 10/14/23 10/14/23 History Allergies Allergy/AdvReac Type Severity Reaction Status Date / Time Unable to Assess Allergy Verified 05/28/23 13:57 Exam Narrative Exam Narrative: Psych-alert and oriented x 3. Attentive and appropriate, constitutionally normal, displays normal mood and affect per situation.? There are no obvious deficits in memory, reasoning, or intellect.? Skin-no obvious rashes, bruising, erythema noted to the patient's area of pain. Extremities- extremities are warm with minimal edema and palpable pulses. Lumbar-no significant tenderness to palpation noted in the lumbar spine and paraspinal musculature.? Pain is elicited with extension, and lateral rotation of the lumbar spine. Range of motion is slightly diminished with these motions due to pain. Facet loading maneuvers are positive bilaterally and do appear to be concordant with the patient's normal complaints of pain.? Coordination remains intact.? Gait remains non-antalgic. Assessment and Plan Assessment and Plan (1) Lumbar spondylosis: Plan 68yom who presents for evaluation. failed conservative measures. imaging r eviewed. given symptoms and imaging, prudent to attempt diagnostic bilateral l4- 5, l5-s1 medial branch blocks under fluoroscopic guidance with intention of proceeding to rfa. he is in agreement. meds reviewed, no changes. follow up after procedure.
== END 2023-10-14 12:58 | disposition home or self-care (01) ==
LOC: PM 12:58
PROVIDERS: PCP Family Medicine; Visit Provider Anesthesiology
DX: M47.816 Spondylosis without myelopathy or radiculopathy, lumbar region (principal)
CPT/HCPCS: G0463

== ENCOUNTER 2023-10-28 07:15 | Day surgery (SDC) | payer MEDICARE, SELFPAY ==
--- OUTSIDE RECORDS SUMMARY | 2023-10-28 07:18 | XMS_ITS | CCD ---
Author Organization [facility] Care Team Providers Care Spiral Weaver Name Role Phone Adriana Mejia Primary Care Provider [phone] TOMI DAVIS Attending Unavailable ADRIANA MEJIA Primary Care Unavailable [...] ADRIANA Hammond Consulting Unavailable Adriana Mejia Unavailable Jose Rafael MOREAU, Brett Wilkins Attending Unavailable Allergies Allergy Classification Reported Allergen(s) Allergy Type Date of Onset Reaction(s) Facility (3 sources) patient allergy list reviewed by nurse or physicia Propensity to adverse reactions 9 Comment:Done [facility] Other (3 sources) Allergies Reconciled Propensity to adverse reactions Unknown [facility] Other Medications Current Medications Medication Drug Class(es) [...] tablet (3 sources) Opioid Agonist Start: 11-03-2018 George 325 mg-5 mg oral tablet 1 tab(s), [...] at bedtime for 0 *Pick strength-form from [facility]* Dec, Active take 1 tablet [...] Oral daily for 30 *Pick strength-form from [facility] for [facility]* October, Active losartan potassium 50 [...] by: SIMRAN MATIAS Date: 2022-01-14 09:21 Normal [facility] Coding Summary.on 01-12-2022 Coding Summary. CD:[id number] G h0bWw+PGhlYWQ+TS3UYLC lE15niPDvzH8ZV2zETE2V BMTFDNQQMC2DDP1qxFO3L YqbZ6FiqnWh TmuneGClKC38PTj9MEC7z PurKOifeG9ynQOkU3p5Zv ZmXD55cH72VXoiRAGcZqQ 3LjZpbjsgbWFy O2yzDhJupYMsGuu+PHRhY mxlIHdpZHRoPScxMDAlJy JiuWwuQP2aSl2qAJLdGKR vbGxhcHNlOiBj t6aqXRTzBDwwRS7nnPtyI 8LiaIW5TBMyd0b1Bj00fV I+JXMuCNH1sQlvMSwvw72 0FgJyj5ypBFU9 mYNeOBvnMHQ5P44mr2M2A TOjYNBqNHS0tUY6fB8faM hyjiyrZ9ZqeAWcJsN2ENU 2vEKzuF3giNcg fflfqS6bFix+L27VNT7EW YVWXJ7KXvw9J0SkXuqseG I+XT43OIQxDU16yIIqoAZ el2gmaMo6OpPn FSLrDTW1dZynPGzzp8RuJ BSiT58upDEaa6G9GZXfoF ctiFCkBhZlaCO0lL2cXMe ejfkes0mskrpb Xyiyo7rhos87wL98O49kF QjoONTmOUM4TWUeWITesD ghsz2njC0tYn1+JPosi7y bz6dbiRz5CjBd BABrzjApxVjoVUS6h1AkY l03Z5JtlCjkn3QvFaq5bq 13gKSup8H8eBM3NLrbBBY uxW8pSLtuImK5 QLFlObUgoB56qAIaLMaoZ w4mrWzvkGfgGN9aHUHpak suALZkvC6wICOlgJZaeQq iND0eOLWzunqa y014YkBrCZQ9VZNjaSZvR 1FfmP3kFqIwLIPjBWIfL1 SccYJyJYpqV409NXfxXwE 1ALQdubZeI5Of MOBthZnjNxB1v0G9Kw7Nj 1EgdpzcRQA2DIinYCD3Qb A9RdTuHmU4F4GpNsk3GQR jtJtiWO2bR1Jp NMGpnfjlxffulHK8DHIjY QVcnY56tRHoKZueVa6qy9 B9g378FBFgUKNfqD48Pa1 udDogMTBwdCBU xT0snubys7cjvzkqOxPmF VDpVKa8SJj7JXEmvKpeMp BlMTZ4EaY7WYE6wHRokV6 gaOtuqqiyoJ0q Oyc+I39sqM8yZOH5JIP5t nwqEOYeahTuPU56FA77K0 RyPjwvdGFibGU+PGRpdiB pmXbfKX6pJdXk d7nqn8WeFCmjD4FpSUOiO PavBpw1SFBaPRB7jLP0dH 2fJUTaHQtet4T4sTB5E6U gfvRsak1iv8cn NLYtBYfcY89yoLDhy4W4W ARgtHN9YYJojHykRtOchK 93Oyc+DAJrsKrzw9ZiXfn xs5unv8uedWv4 YmXhQBZrxqOdeCdsZNG3f 3TcMa52I28hPFieFGFlZB SkEUSeHFXqySyigw4ekM5 wIi8+PGNvbCB3 hQT8lO0vFWHdUuY7IEetQ 198FdOltXSvXotbi2oku9 mgfRj2WuKsHWHweiWxtGj qAUG5w5MeHd60 K90nXXzhLCNeSCDoSSYrX XErzDtbed2vnM0nDx3+PC 1lv7kdje45kU52cWG+PHR eIYQ5wSnkJKvx AMTkaM0nPBorZpQ2LWEkV wBlsU94hYIpUUuqDt6mqI cqiBeqPT9oODOhrtpfj55 3CcNwg4luBTTq gFLbQXqyEIP1K53zk0V9X MQeDDZbUYM9iPN8xO5wgJ lnbjogbGVmdDsgdmVydGl sBYqtQHxjH843 IHRvcDsnPlBhdGllbnQgT eRpHHl6D1OoDps0VARszT qaVV0njVGyRNcfRh2poGw cnYgaRG4jEUCb qoela877YdQqy0rtPDLum OMdUAjdPLZ2Y25tv4L2KI IlVQIdYMS3yYF6mZ6boOy nbjogbGVmdDsg pkHziLpzANrfRYcjM682H HRvcDsnPkJpcnRoIERhdG I0HA84XU96vNLtz0H3gUH 1G1JlPUDeuaol jqsciDL6FDQpRRQkdC42Z w9tgWrtRe7vVXXeMMJ7QH LpuJLvC8FwhZ8iYyJwWLG iJZCtN6WirYJb VVqnT064SBpwPcN0XIYuj gFlJ5LkFHRsjSlrEhA9x1 I4Jv9QE0O6QZ58FL85tVX na2W0oYQ1E2Fo GNBwtlstzauzbRM4JIDwE JHnsL46Hk9mkQyyUe9kCH PjAJZ4YVUhdBCpE3OgtK1 yOiAjMDAwMDAw S1GtzWLhMTvyE495DGdmM nF7VPGibaVfL4ObAASwdW xxPqP8s1F6Kj6PTRq6OX3 6XQ86aTDwz4L2 fQR0L8ZoTJStysrrimmld OT5UYPjQLOljV53So9pdE uqKk9mCDYnUIH0VUDleTX sT6MyyK0iCtOt BWKgUNGgH0HvtENoEIaiI 885UExmFjS0IUBgyhWxO7 IhGSZfyHjlUvB7x9U5Cz3 JJUHgME71HXR3 jJK2HQ57CA65X0IiPxgav GFibGU+PHRhYmxlIHdpZH RoPScxMDAlJyBzdHlsZT0 sVw5oZGFsILLx fSyihVLnDcMmn7luSMItS WrmMO2efLrdX1PjuXG6NS Ejd1d8Kz90D42iI7WszFM +HFHbvCR8eIZ5 vM6fSvVsJrV5WOosB828B cYxkDTeZilar0bqn2cibR d9JxL3NYImsmSfzFekJTF 3a4RiWp36V00j IHdpZHRoPSIxNSUiIHZhb Nwnna9qcO0hYm4+PGNvbC S4zDJ8tG2bYgOlGuH5DFx sS088QkNasCTn Cceov8kcc9cgqAx1OaOqJ BHuvbYziMnqSHV7t5YrIy 31A3AetFeiz8GsDtl3sf9 6mHZtu1W5iHN8 L7BlNZSmigiuyUTnyTboS R0rNUMgfkfnZITneQ3sUR FmB3l1OcCrGtH4KZndK0S nteH5WKUdrCXl TTyvNBF5D44eh3S7ZAPlK IUaCQG9aMD3dS8ruRpdcm ogbGVmdDsgdmVydGljYWw mEWiaN681HUOu aXcmOXKqxF8vHAVyyYOnk ApoFC8uNLBcizekYcRSIo LGTzLFLXEKM7rCIsCKFO4 0WY44aLLxa5O0 sLK9D1DkKDUgqgvttmlhy IQ4AKFuTYYjkJ96qRGuVW rxOs3ah5Y5m771MMRwDYO moM10Qn9lmPrg MVQifGLDhS6rluyoz8vyk lakImMjZPEjSQu9MIj8WC NvgFbxQqFwDYX0IqR3WQJ 6mGAbmY0dqXxs wncpfG1aIup+MDkvMDMvM Pr9XttrvHB+ZZWePFX1nW okOCvpGABirD2cIBAhS8l 4HtDcCfF3RNwb I7SkORGoghbmSy72qW3lJ bQjRaG4QHdcA5CohgJ4UL VniYUnZGroBRV5W16oc7J 8LSFcFIJuYWE0 eMV8fE3kgCutlbjpoTYtl DsgdmVydGljYWwtYWxpZ2 56PWBfnNzcQsH6VLozTVY qLT47XF54gVJs r1X6kIG3V6YoFLTtdpnqr fhqdWJ5OCGmXQOvqZ87uE MxUIpuAv7eu2P1g503LYE jJBNcaI93Hc7a bLtzDLNuuNLXcV9mkkurs 1ocjbypRqCzQXQnASa3EC h6LAFlcEykSbLdNHE7PdW 4VOR0aZZpyI3d pUeadnrzgE3ySje+TWFsZ TwvdGQ+FASbBLO1zEwjPQ ryJEXlzA5dWPJqZ6d5WcR cMuD9OTvlS9Br GUFosuleYv29eV2eKdFgB wZ2EWiqX5NkuhX3GPPrxT PuDDqnUQK4P84nr5F0KIU eGUPlHVA1wJA3 qA0uaXgjictzwSWdnDypc nKrdHdaRDzfCQspT187IS IuaXntLj60yUHadVhsxmF 3Z0EnRoigmIK+ QT83UUHpIC49cIFyhZMsf 2kotIg8YhUrPHDiIKP6gJ lzSDuwh8QlLQRaX71ijHY hi8N8TJPpmIfj dWDsYrAvvNC0cC2wDDjej jvsy3wcqwgaYttjr6pkol 58oF52W33iHPbeCNRoUDV zMCUiIHZhbGln nn2upT7zRm9+DEUlkFP1o PC8oC1hRpBoCtB7VStaV9 04PkSkkSGiSiftp1ncs3a dlXu8FxGuZWXx xhYwpZcpLTT8c5FiIx25L 29sIHdpZHRoPSIyMCUiIH VnfCvcko7waV0bGl2+PC9 do7ruph66bL14 dHI+ZXZsTLL3iMpqMZfrF NUhkV7zKOngGhA3ODFyIi HvrA78bXBqYJrqDa4fwNl lcCvoDF4kLKMm fykyn480YgXpe7vsDMTtw WCmAJljWAX2H96ob1C9XF KbIUOcUBA0qNW7fC2miJw nbjogbGVmdDsg yzVkdPmuJYvxGBfjU879K VDlwAtiLhLehNDpD3aqkl MJJZ7bVomgaAE+PHRkIHN 0eWxlPSdwYWRk yP4fOZVoU7k8TkClBoN7Q ErxG7TemrE6SVJahYPrOG UibRZHyI2ygnzli1dusxv gIzAwMDAwMDt0 KTa6XHVciPhiZmElZZC5D tX5CQA1jDVbhW4vpNkncd tmyG5mFuo+RklOOjwvdGQ +YFSfTAL6dTrc WAycEIHroX9vHSMeL8h1R dEnHwW7REerA1OjwmS3EM BhjYKpLIVymPCSjC3ixsc kk0dzqkhwKwSu RFTsBYa6OFo4GVMrdFhhH cLaDOQ1HvR1PFL0uMUacX 0afBfhdnxlxV2mYwr+TVJ OOjwvdGQ+PHRk IFH4iVsfAEzuCJSotU3tG RCcZ2b1VuUuAcN8HEduI5 WzpdJ3NUXujQKnQSNkwUZ LxV6xggbnn5yf isumVjCeZGZiMIz5AQp3M BLxmTvbNkKgXGN3CfR7KD I5kFFouH1nzWdluwuzoK7 wOyc+SAF0EOZ9 LF53XL12Y2RcFjphoZUzm +PHRhYmxlIHdpZHRoPS dtKMHcQxVpzQxvOS2bOa6 yZGVyLWNvbGxh cHNl (more content not included)... Normal [facility] Coding Summary. CD:[id number]:[id number] G h0bWw+PGhlYWQ+SL5KXKW zE61jbNCadC7MQ5qSCK9S NZWUFKFJCL9BVL9fiUZ2O QjxM9WrejOz XvlwnTLsEG72AVy7YHK2b YmsGWqtpS1ddXBjV5w5Vt YtHR11wZ59KMetNFRmKbK 3LjZpbjsgbWFy C2xtRvPhdQDhYsw+PHRhY mxlIHdpZHRoPScxMDAlJy MltBxqUX9dCp4mVZHmMYZ vbGxhcHNlOiBj s5ugRLVjKZbfBN5lfReyF 1KdoLG7RWGou9x7Zp91fL I+YUAdMZW0vHdcXOavk75 1TkJey7kxKFU7 qGKhQQxzFHN2T84up6Z4N SRgHLOvASI1mLQ7iT3pmT arlodmZ5AkkYCoDeQ2JGU 3gGMgzO0cyCdq nflewL6vRth+D01HDW8RO IVSWE3RUvh2I2NhCmbhgQ I+UG37ZUNfUX72nEZdnSK wt8nwoZc1ReSn LKPjKXS0jBxuKWgkk1XbC LJnE96pvLTke8O7JJWztK bsnEFwRaWyrEW6sO6vTZa enhrsc5jmcacx Dcdbx0tjap56bM07T56vG EwyKYKrVMH5XPSpZMZokK uxum7ubE8aJv5+UOdrw5l qg6rkwBi9YiDt KNJquvGxlCpqPLT6m6ZgJ w89L2BaeDhkn5IkPcm2ru 80vGSev7C8aND4YKebSGA orV9lPCaeQyO3 YSBqWvPrfO33pZAeTVmuJ t4vjBrrsUcqYN2dNJXcsj eqOOMnxM0uDRYgwFHsmMp qVC2sEICtvxyu f800JwKvNAC8SGNlxPVbC 2AtpE5jOfDdULOgPBBkV6 NamOLgKDeuP660QDfaBgI 7IOJtdvTpP5Dw JSMbaBzdTiF0t0Q0Vs1Mz 0YuqiruARQ9IEnlXMV1Jh T2MtZoOqD9T1WzEgb4AKH xrQfaQM9dO3Or IWUmsoxlpdklgCU0HOHiD OQuqY50aRScZLjcKi0xf7 A9u588FFHpPYJfzS58Dq9 udDogMTBwdCBU iK1emzcxr6trinykDhPlY KLpMRd0WOw6ISWptBxgSr VoIYH9QkE1RMX7gJFqqZ6 mqVrokykxsC0a Oyc+J68tzM1lOHD4XXZ4j rqcZIUvgbEyKJ35AM86W0 RyPjwvdGFibGU+PGRpdiB ioTamKY8pEmNj y2ymh8QsCQioP2ScYKTdZ ZlxRnt2GXBpBBR7uJK6sA 6wBFXdBBkbt7W1lXY5M3Z lpyEhjm0tx1tr NXTdFOksL76ijKMwu2E4N CXewLO5CKNmnOyxGdMatN 93Oyc+RDTgoKvhk2PzYlb gd7nle3tqbIx3 DdUyUGVipeBcuAegBUO5p 2JtAw19W34mIFojFDNnIM UiATEnEJCvtFigrx9czA4 wIi8+PGNvbCB3 bUT1vB7lYAVjUbH9DHzyY 472AhIlsHUtKkokm9aqp3 ffmGd3EoMeCJGauiYobAs iTVJ0m4ZkIl38 F86pVKkuKYOnXFStFUYdZ ENkrWztik4tqB6wOe0+PC 2ev6epto80tZ74jRO+PHR oQFB5mCzeACpb JGRhuA4aVQdcUcD9YHBdZ jMylF74wYYvREpnKf3gkD cpzPegPJ9wCWWffzhod71 9OyRfi6meBBKj iYZvYBmfOUL0I00ax0Y5Y VUsMPUkFTS9uFL9iH6uoR lnbjogbGVmdDsgdmVydGl eLVitVQgrV303 IHRvcDsnPlBhdGllbnQgT fUlDRf3X0NxZbb5DSYpnT zkAP5oyXPcYRisGa6guSv qnNbhKQ4nEZMw jqzzu556LgBve1ztYDDwp YJxYMysKAC3R90hs5V9XT GaTVHoGWL3qXH2oL4bvFd nbjogbGVmdDsg xoYckIfjQZpbGGrsZ600S HRvcDsnPkJpcnRoIERhdG Z5HT53NE70kAGxm3O4mYN 3H0EzOQZlcbwz buenwPD1QMAwWEQhfB21U c4avMquQa6uRIUmYVH2TH PacAJaZ2DejT9kBwVdEQO lDXQyG5WkeMAp QQvuC091CFydBeX8OYXzg qFaK2BiZECmsLhhYzK9s1 Q2An6LG5O6RC34EB32hND oe2L3eLV3Z3Zg KLTbntoplfjucHR6ZJQoU KLzlT12Ba6dxIqrFg8hOH VtPVV8YUCgjPUjT7GqaW1 yOiAjMDAwMDAw M3TxqKBmVMkkA824HAjpS zV2PATzuyHhY5YhBBUtdN ksQdZ1k6S5Iu8UEZd8XT1 7OV71hPPcy1F4 aCR7D0DmXCWqizxlbmtzw ZV3TSDkPQYliE04Fv9plJ wjCo2eIMUbPAE0CTDfzIJ wS2DidM6gXcQe CKFcPHGiR7QhhUNzOLeoN 188WAoaSsP8XPTvelLyG4 QkUYJihHpfPmO8v7S2Yc6 ITHYqMK39CPK3 rEJ3TE86BN89V9OrGiebo GFibGU+PHRhYmxlIHdpZH RoPScxMDAlJyBzdHlsZT0 dGm9uBCOtGWDb wRkxsUIbStGcs1zjZYHjZ FlpGW8ptQbpU0GwtZM3BB Dry4e9Nb83D62gV7VvfMN +LXKteQH9xIQ4 xR0pNdRbPuD4VHxqQ295F uAqnZDaPcdek3dnf4ozvT k4FrW7XKKbeoOhoYnqSYE 5z9GoCs95U91d IHdpZHRoPSIxNSUiIHZhb Utssq3kcD9fRg7+PGNvbC Q7zDT8yS2mVrLlNpT8WVk hS180ZfEaaBSg Tjrho0yiz0hqiWv0LkPbF TPhshTzzOfdAMX9r7JjUj 42W4ZbvFvkz8UkAfr8tt7 1qUNao5J0bSG0 U6SeKOMfdidqmALkrGweH F3aURSakvthKBLmoQ1xRZ GjP9g8HbZaDcM7FLzbF2L nthK5LBVwxKOe NVijKVO2G83iy1F1ECPzF RBkHHO0qCH4oU5uwSywhq ogbGVmdDsgdmVydGljYWw uNErpE480DQQg bGhkCARfuF9bAXUicQNns EhgLX3cXMRtuuseJiKRZg YPOyCSEBPUM7gNYrYBIC3 3DM44iDGhc5P5 gZO5X9LyJKOqivncwfgxn BE6RLXlSNLusT91zETeTY skTa1vv2Z3i543GYDwVFJ hcQ06Ji7wsMbo GTBucEABhC0sxuhpj0cgo bpwZaJaJCOlQDs9HTt8QB XavBzwUhRlZKH3QvH3IPQ 0bGYuwX8yxBml gnwneA7tDzk+MDkvMDMvM Np6YgnzvUG+GFHoIWN5aL sdYMcnSINvtF3kTSXzH2t 8GoXbEaW8EWft U8CnZUQlypxkRy13lC8nV mClMbU9RDnnI2UqrxM2SV LijDXyXEeqPVW0Y78ze7N 9CQCjNHZxVJO5 jAO1cV4tpYxnlirulGVgj DsgdmVydGljYWwtYWxpZ2 65HPGfcMzcNqJ7FDlwSFL cLS34VX55vDZq y0V4bQG2E0EnVGSktxvns gfhuHL0YLRcDSZnwC02oO JvPSctHz2rh6A2x739ELP nBVSbiI19Gn3c eFivXMXqhVPCiS9lqzbru 3znijlsEyCdWORlXJq1AI y4SZNjkMipOhNhRIY1GwR 0YDU1aCTxpA9d vGewmckgdM7dWbt+TWFsZ TwvdGQ+ISIqIUS5oCjuGQ bkUUNgrA9lTTJvD3e7AvR cQhB1ENpyS7Xu EDEsveugOv41zQ8sCjWeJ oD1WTgpP9HrdjO4BQTbkT RpJMdfGDY3Y60dk8L0CFG sUNCwOSQ2nGO5 yD3hmVlydlfiqDBjaKxys fRfzNrhREatEUvpS061WR KvxKfjZdWaLPLoJE3urXz vdGQ+IL57re07 J4LvDaqkJca2XVIzYJW6r XO0rR5rESOxSGucy4Q9qH D1G9YgwjCjsy8bp1uqKEN lUDlhY16yeLQb b2J8WSZbmCC7GFMhzPtuO dElnH28Djs+PGNvbGdyb3 YoKexun2qll7uisCe1VpY wJSIgdmFsaWdu GIN8g2KxEe56L92gPXgcN HRoPSIzMCUiIHZhbGlnbj 2icT9mLv6+YXPjcSS8tNN 5oV9kMxOoHxV8 URyhX665EeNwjMAfGqeyn 0ikk3oohEb8QfRqRXWafv FmmWsbFPU8m3MmEt84S3Y swQuzz2ZgAjt7 im38lLRpy3B9pMV0X6BaC YCivonjtBXkgCjyHG4gVQ IfypdlHKXquY4vWYOjS3j 9FvXlCfI2UGaz L2LeyhP4QPFzdXNwZMBxb GHPtM2evqntm8uhgphmNf WhMMByJUm7AQb3FHWlpOp oYeDrZMF4ZbN1 WJH5aZAcwM3iaKnxwayva G9wOyc+ZMf8i6mmrRMoGQ 9jzBP6CQ55FY02qJOuw9A 2lEP2S5WlDOTe emzjlrqzuAL4KWOrCCAnu K79Uu9dsQmaWj3hHGFbHV Z5FVLseELnD7ArdR7xPbO iDMPaJCUwG9Dw vBKaHVimP757BEfhTfR6N DGkbcTuT6PwBBQvnIvdUs P4e6C4Qs1FWF86FH40MS0 5eKPrz0E8nYU6 H9LrGTThshaeostctMN1D FNjONYyiS63Kr5lbHcfHy 1lODWhVUI8VJKhrHCaV3J apN8qNjQtSTLb UWFsB5VjxHFxRVohC490Z UueCtF2TZQfujNeT4PzKP FziGiiUnX2r5H9Hr5QNx4 0DC23XP69zBSs f2X8yDP5T9RrKNXiviskk jdhjYW2AUHuUBHcfW24In 8keHbbTi9pXLYhPGH2RXJ qlYQvF0IttG2m NeYpSXPaBGKkV4KrkIFeM RxfV945BLsbPtF5NTJzjg TeX5RpWECrqTybWwC4v7C 4Kt2XIObilvr5 Q7TeUmyuyAR+JS60HHIgA Z41eGZpsKXoj6izvAo5Wi OqTVFhLRX0lFldBVmpr4I zCJYoW08dbCYy c2U6 (more content not included)... [facility] Consent for Treatmenton Consent for Treatment [id number] .00CD:127 [facility] Discharge Instructionson Discharge Instructions [id number]# 1.00CD:127 [facility] ED Clinical Summaryon 2021 ED Clinical Summary [address] [address] ED Clinical Summary Person Information Name: MANNIE JARQUIN/NewDaniel Age: 66 Years : 1955 Sex: Male Language: Albanian PCP: ADRIANA MEJIA MD Marital Status: Phone: [phone] Visit Id: Visit Reason: Ear foreign body; [...] 01/06/2022 08:25:56 01/06/2022 08:25:56 ADDRESS: [address] [facility] [id number] PHYS DOC NOTES: MEDICAL INFORMATION: Prescriptions Given: New Medications Printed Prescriptions ciprofloxacin-dexamet hasone otic (ciprofloxacin-dexame thasone 0.3%-0.1% Otic Susp) 4 Drops Right ear 2 times a day for 7 Days. Refills: 0. Medications to Continue with No Changes Other Medications acetaminophen-hydroco done (George 325 mg-5 mg oral tablet) 1 Tablets By Mouth every 4 hours as needed for pain. Refills: 0. PATIENT EDUCATION INFORMATION: Instructions: Otitis Externa; Ear Drops, Adult Follow up: With: Address: When: Elizabeth Veliz [address] [place] [address] 3, [address] [place] [id number] Business (1) In 3 days 01/09/2022 With: Address: When: ADRIANA JACKIE [address] [place], [place] [id number] Business (1) In 3 days 01/09/2022 DIAGNOSIS: Otitis externa Normal [facility] ED Note-Physicianon 01-07-20 ED Note-Physician Basic Information Time Seen: Kirill Simon DO 01/06/2022 08:06 Chief Complaint pt had a beetle fly into his ear, states he was seen at [facility] and they flushed his ear with lidocaine but they did not remove it. pt here today because it hurts. beetle is in r ear. History of Present Illness 66-year-old male comes to the ED for evaluation of right ear pain and concern for foreign body. He states that beetle crawled to his ear last night. He was seen at [facility] where he states the squirted lidocaine [...] Veliz In 3 days 01/09/2022 EDT [address] [facility] [address], [address] [place] [address]- Business (1) Additional Instructions: ADRIANA MEJIA In 3 days 01/09/2022 EDT [address] [place] [address]- Business (1) Additional Instructions: Patient Education Otitis Externa Ear Drops, Adult Attestation Patient seen and evaluated by the physician operating room assistant. Attending physician was present in the emergency department and supervised care. This visit was performed by both the physician and an APC. I performed all aspects of the MDM as documented. This report was transcribed using voice recognition software. Every effort was made to ensure accuracy, however, inadvertently computerized grounds maintenance worker mistakes may be present. Appropriate healthcare PPE [...] 0.3%-0.1% Otic Susp, 4 drop(s), Ear-Right, BID George 325 mg-5 mg oral tablet, 1 tab(s), Oral, q4hr, PRN Allergies No Known Medication Allergies Social History Alcohol Substance Abuse Tobacco Lab Results No qualifying data available. Diagnostic Results No qualifying data available. Normal [facility] Comment on above: Result Comment: Elec tronically [...] 06/11/2002 Document Revised: 05/30/2018 Document Reviewed: 06/20/2017 [employer] Patient Education ? 2020 [employer] Infectious Disease Otitis Externa Otitis externa [...] even if your condition improves. ? Take rqtc-fxd-siwaebu and prescription medicines only as told by your health care provider. ? Avoid getting water in your ears as told by your health care provider. This may include avoid (more content not included)... Normal [facility] ED Patient Summaryon 022 ED Patient Summary [place] [id number] Patient Discharge Instructions Person Information Name: MANNIE JARQUIN Age: 66 Years Arrival Date: 01/06/2022 07:57:27 Discharge Diagnosis: Otitis externa Primary Care Physician: ADRIANA MEJIA MD Provider Information Primary Provider: Kirill Simon DO [facility] Marker:Ramon Gauthier PA-C The exam and treatment you received in the Emergency Department were for an urgent problem and are not intended as complete care. It is important that you follow up with a doctor, nurse practitioner, or physician?s operating room assistant for ongoing care. If your symptoms [...] Instructions: With: Address: When: Elizabeth Veliz [address] [facility] [address], [address] [place] [id number] Business (1) In 3 days 01/09/2022 With: Address: When: ADRIANA MEJIA [address] [place], [place] [id number] [facility] (1) In 3 days 01/09/2022 In the event that this physician does not participate in your insurance network, please consult with your insurance company to find a nearby participating provider. Patient Education Materials: Otitis Externa; Ear Drops, Adult A MESSAGE TO ALL PATIENTS REGARDING OPIOIDS PRESCRIPTION OPIOIDS: WHAT YOU NEED TO KNOW Prescription opioids can be used to help relieve ibgddtnu-ui-sfiuum pain and are often prescribed following a [...] you may (more content not included)... Normal [facility] Auto Diffon 01-03-2022 Basophils/100 WBC (Bld) 0.5 % Normal 0.0-2.0 [facility] Comment on above: Order Comment: Order Added by Discern Expert. Performed By: #### 1 [id number], 9066074, 4291849, 5774493, 87775843 ####[place] [address] [place] [address] Basophils/Leukocytes Auto (Bld) [Pure # fraction] 0.0 E9/L Normal 0.0-0.2 [facility] Comment on above: Order Comment: Order Added by Discern Expert. Performed By: #### 1 [id number], 9871398, 6155663, 0173083, [id number] ####[place] [address] [place] [address] Eosinophils/100 WBC (Bld) 3.1 % Normal 0.0-8.0 [facility] Comment on above: Order Comment: Order Added by Discern Expert. Performed By: #### 1 [id number], 5629919, 8225955, 1649339, 61785259 ####[place] [address] [place] [address] Eosinophils/Leukocytes Auto (Bld) [Pure # fraction] 0.2 E9/L Normal 0.0-0.5 [facility] Comment on above: Order Comment: Order Added by Discern Expert. Performed By: #### 1 3507752, 9398876, 2090023, 2948282, 37925542 ####[place] [address] [place] [address] Lymphocytes/100 WBC (Bld) 19.8 % Normal 14.0-50.0 [facility] Comment on above: Order Comment: Order Added by Discern Expert. Performed By: #### 1 6951673, 0608840, 0116865, 9213887, 70649416 ####[place] [address] [place] [address] Lymphocytes/Leukocytes Auto (Bld) [Pure # fraction] 1.2 E9/L Normal 1.0-4.0 [facility] Comment on above: Order Comment: Order Added by Discern Expert. Performed By: #### 1 4801828, 3405549, 3756591, 3413841, 70059057 ####[place] [address] [place] [address] Monocytes/100 WBC (Bld) 13.6 % Normal 4.0-14.0 [facility] Comment on above: Order Comment: Order Added by Discern Expert. Performed By: #### 1 3920718, 8215820, 3499049, 1540809, 04250070 ####[address] [address] Monocytes/Leukocytes Auto (Bld) [Pure # fraction] 0.8 E9/L Normal 0.2-1.0 [facility] Comment on above: Order Comment: Order Added by Discern Expert. Performed By: #### 1 6264524, 6401441, 5890388, 9345298, 43249903 ####[address] [address] Neutrophils/100 WBC (Bld) 63.0 % Normal 36.0-75.0 [facility] Comment on above: Order Comment: Order Added by Discern Expert. Performed By: #### 1 8293832, 2529980, 7905754, 9429507, 27700252 ####[place] [address] [place] [address] Neutrophils/Leukocytes Auto (Bld) [Pure # fraction] 3.8 E9/L Normal 2.0-7.5 [facility] Comment on above: Order Comment: Order Added by Discern Expert. Performed By: #### 1 2484540, 8093056, 7543393, 3198981, 62711143 ####[facility] [address] [place] [address] BMPon 01-03-2022 Anion gap [Moles/Vol] 11 mmol/L Normal 6-16 [facility] Comment on above: Performed By: #### 1 9740279, 1571196, 5018649, 4526775, 66984270 ####[facility] [address] [place] [address] Calcium [Mass/Vol] 8.9 mg/dL Normal 8.9-11.1 [facility] Comment on above: Performed By: #### 1 4930367, 2083972, 1153877, 4231562, 67664799 ####[facility] [address] [place] [address] Chloride [Moles/Vol] 104 mmol/L Normal 101-111 [facility] Comment on above: Performed By: #### 1 7709605, 9909582, 0108605, 1398198, 08661540 ####[facility] [address] [place] [address] CO2 [Moles/Vol] 28 mmol/L Normal 21-31 [facility] Comment on above: Performed By: #### 1 2116552, 3460636, 7072951, 0699887, 61666612 ####[facility] [address] [place] [address] Creatinine [Mass/Vol] 1.3 mg/dL Normal 0.5-1.3 [facility] Comment on above: Performed By: #### 1 6353744, 4095763, 7158927, 6278324, 43456516 ####[facility] [address] [address] Glucose [Mass/Vol] 102 mg/dL Normal 55-199 [facility] Comment on above: Result Comment: If t his glucose result represents a fasting glucose, interpretation should refer to the following reference range: 55-99 mg/dL Performed By: #### 1 9970056, 4247576, 6516702, 7975652, 00215011 ####[facility] [address] [place] [address] Potassium [Moles/Vol] 4.6 mmol/L Normal 3.5-5.3 [facility] Comment on above: Performed By: #### 1 8732901, 6944570, 3924849, 5462475, 79117435 ####[facility] [address] [place] [address] Sodium [Moles/Vol] 138 mmol/L Normal 135-145 [facility] Comment on above: Performed By: #### 1 2593432, 2070446, 2123056, 6394647, 68859895 ####[facility] [address] [place] [address] Urea nitrogen [Mass/Vol] 22 mg/dL High 5-21 [facility] Comment on above: Performed By: #### 1 2912226, 0904009, 9411810, 4575782, 03663916 ####[facility] [address] [place] [address] Urea nitrogen/Creatinine [Mass ratio] 17 No Units Normal 10-20 [facility] Comment on above: Performed By: #### 1 0991491, 1077958, 6540507, 0742400, 05781925 ####[facility] [address] [place] [address] CBC w/ Auto Diffon Erythrocyte distribution width (RBC) [Ratio] 13.7 % Normal 10.9-14.2 [facility] Comment on above: Performed By: #### 1 4767217, 9368301, 3215640, 3018588, 08270934 ####[facility] [address] [place] [address] Hematocrit (Bld) [Volume fraction] 42.1 % Normal 37.7-49.0 [facility] Comment on above: Performed By: #### 1 5986229, 8259520, 1002453, 6708666, 31286917 ####[facility] [address] [place] [address] Hemoglobin (Bld) [Mass/Vol] 14.3 g/dL Normal 13.5-17.5 [facility] Comment on above: Performed By: #### 1 7572436, 8721934, 2371032, 6907297, 20607917 ####[address] [address] MCH (RBC) [Entitic mass] 30.4 pg Normal 27.0-34.0 [facility] Comment on above: Performed By: #### 1 2803633, 7794056, 7883644, 5236406, 41583097 ####[address] [address] MCHC (RBC) [Mass/Vol] 33.9 g/dL Normal 31.4-36.0 [facility] Comment on above: Performed By: #### 1 9721745, 2291820, 8271297, 6425691, 75579070 ####[address] [address] MCV (RBC) [Entitic vol] 89.7 fL Normal 80.0-100.0 [facility] Comment on above: Performed By: #### 1 6168495, 1661342, 1660640, 8387976, 80828810 ####[address] [address] Platelet mean volume (Bld) [Entitic vol] 10.5 fL Normal 6.4-10.8 [facility] Comment on above: Performed By: #### 1 8788339, 5368457, 4032437, 8035750, 43537400 ####[address] [address] Platelets (Bld) [#/Vol] 240.0 E9/L Normal 150.0-500.0 [facility] Comment on above: Performed By: #### 1 5571553, 5618872, 4461942, 0838238, 85918994 ####[facility] [address] [place] [address] RBC (Bld) [#/Vol] 4.7 E12/L Normal 4.3-5.9 [facility] Comment on above: Performed By: #### 1 9260860, 4287573, 7679099, 9631932, 31160593 ####[facility] [address] [place] [address] WBC corrected for nucl RBC Auto (Bld) [#/Vol] 6.0 E9/L Normal 4.0-11.0 [facility] Comment on above: Performed By: #### 1 2561059, 1744456, 5131177, 9467837, 44146775 ####[facility] [address] [place] [address] CHEMISTRYOrdered By: SYSTEM SYSTEM on 01-03-2022 Anion gap [Moles/Vol] 11 mmol/L Normal 6 - 16 mEq/L F [facility] Remisol Calcium [Mass/Vol] 8.9 mg/dL Normal 8.9 - 11. 1 mg/dL [facility] Chloride [Moles/Vol] 104 mmol/L Normal 101 - 1 11 mmol/L [facility] CO2 [Moles/Vol] 28 mmol/L Normal 21 - 31 mmol/L [facility] Creatinine [Mass/Vol] 1.3 mg/dL Normal 0.5 - 1.3 mg/dL [facility] Remisol GFR/1.73 sq M.predicted among blacks MDRD (S/P/Bld) [Vol rate/Area] mL/min/1.73 m2 Normal >=59mL/min/1. 73 m2 FT Chem S GFR/1.73 sq M.predicted among non-blacks MDRD (S/P/Bld) [Vol rate/Area] 55 mL/min/1.73 m2 Low >=59mL/min/1. 73 m2 [facility] [place] [facility] [place] Glucose [Mass/Vol] 102 mg/dL Normal [...] for Treatmenton Consent for Treatment [id number] 207 [id number]#1 .00CD:127 Normal [facility] HEMATOLOGYOrdered By: SYSTEM SYSTEM on 01-03-2022 Basophils/100 [...] 6.0 E9/L Normal 4.0 - 11.0 E9/L [facility] HemeAutoSS PSA Totalon 01-03-2022 Prostate specific Ag [Mass/Vol] 2.0 ng/mL Normal 0.1-3.5 [facility] Comment on above: Result Comment: The concentration of PSA determined by different manufacturers can vary due to differences in assay methods and reagent specificity. Values obtained from different assay methods cannot be used interchangeably. The methodology used for this result was chemiluminescence using [employer]'s Access Hybritech PSA reagent. Performed By: #### 1 [id number], [id number], [id number], [id number], [id number] ####[facility] [address] [place] [address] Physician Orderon 01-03-2022 Physician Order [id number]# 1.00CD:127 Normal [facility] eGFRon 01-03-2022 GFR/1.73 sq M.predicted among blacks MDRD (S/P/Bld) [Vol rate/Area] mL/min/{1.73_m2} Normal >=59 [facility] Comment on above: Order Comment: Order added by Discern Expert. Result Comment: eGFR is race adjusted. AA=. Performed By: #### 1 [id number], [id number], [id number], [id number] ####[facility] [address] [place] [address] GFR/1.73 sq M.predicted among non-blacks MDRD (S/P/Bld) [Vol rate/Area] 55 mL/min/1.73 m2 Low >=59 [facility] Comment on above: Order Comment: Order added by Discern Expert. Result Comment: Manager Primary asia kidney disease could be indicated at eGFR's of less than 60 mL/min/1.73m2. Kidney failure is indicated at less than 15 mL/min/1.73m2. Performed By: #### 1 [id number], [id number], [id number], [id number], [id number] ####[facility] [address] [place] [address] Coding Summary.on 10-17-2021 Coding Summary. CD:[id number]:[id number] G h0bWw+PGhlYWQ+AD1FGPK hZ11ceSIrvX1NB8eKIY1B ITIYPTDCQK6VIA6vyQT1O OslU1HmurDc WcyhvGLpMA96KKg7DYH2x YllXExcaX0lfGTzX8a5Tp TlWR66sU09IVskRMZwUuE 3LjZpbjsgbWFy M0dtMiVjePEnKix+PHRhY mxlIHdpZHRoPScxMDAlJy OvmSduSB6uAi9bKKJcLSZ vbGxhcHNlOiBj p7rnCBQrBLanYZ0knEcnH 7PliVN5LBRmk1p8Gg65dX I+MMRyJRB4qCtdKVwbu91 1HwIcc0fsSWT5 gIAbMCksIYG9V28rw3J8F UHqBERpCPX8vAI0lI3xhJ tqzebrE8KhvHPqZtZ2QKL 4bXPibE5suAih rqwlpY9cVdh+E22KHZ9DT IRTZG3OZju3K9YiAwcruJ I+WP16BUBfAQ22lVQmbCO is0rwaSz1OmGs QUDxPPM7nVgsKRrfd7TiD PMkE65sqDOge1W5WQVyjH tncJTpCySidLV2dF3sXLt gsnrzj0pziwvv Inmus5rfsf38bJ37G37qN PgcWIDtAIC8DQEbPTIvhW ymli7voU6pEu3+TLhfo4y df5kqlMx9SnHr GCKpmqBacManPHY7p9XuF w35Q2VduCjme4IyOtl5jl 28kLBet8D3sNO0FVrkLPO tkH8bBUogHqD5 MMMvRlBwxI67xXVrWGmoD l5fcAkvxQxzOU8zWNDoay iqJOZjbB3qQXIjyMDsdWn kRK1fVDCjazpl g983DmNtDLD9TMUikVShT 2GsnL0sKcPtIFVsAAYfX8 FbhELmRQugO783LKrzGuY 8PYYglbBeL5Rs HVAfvDvvWgP4e6K0Dw1Ji 0KsorkxWXI0QTjsOIF2Qc P6IbAjVqX2S2PhSbc0IQW lgGqgZU2kR8Ug WQYhixwfalcgeXY8PWQlV LMckA11iQPbNOknNq7hz2 G0y215URHfILBzvU74Kd4 udDogMTBwdCBU hF5vtxpad1mmohbnNgDvD HReYNm0PJg5AILesNyvNh PzBVG3PfF3OYH0iUVgsR9 kvKxnlofvaR3d Oyc+W99uwH5qEQE5SBD1x elfUFLtdxZmWX48CL23X8 RyPjwvdGFibGU+PGRpdiB gqTwdBV1gPyMn v4usb3BpAYnoU7FkEEJhU AagQtj9NZSzXIA8nRO2yK 0rDOBrANbel3A6dSJ3A9R rchCjrx2qn1ui FQXrAWdkT87aiWUeq3L3L ETxeTA7WDOdjRoeVqQmmF 93Oyc+RXFyyIywp8XgJla jn9orl6yhkBx6 UqLcKSBidtTiwXswCMR8v 9UmPe85I17vCHahDXNyJN XqYXUzDZKhiSzags6lcV5 wIi8+PGNvbCB3 uUX0sG2pQHSfEcY5WBowJ 719PrOxfZHsKpmyc2zfm8 ldtOh2QyQcZVChuyRacOp sNGW2q6WkPr06 P81vNBbyJJIxPLQmWGPhY ORnzYbmlr0tbT8dTi0+PC 6ew5izmx70mV22wGX+PHR vTQH8fKxoGHpy TPTxoP2xMAsxUaQ3RRFyB jIzvL46oAKkLXonVl1paS pksEreNQ7rDMEhzhrve71 6MbXva9ywOYDt xPQhZUiyFRX6E30xd2U5R JCiZFRpKSY0nYH2oI0skX lnbjogbGVmdDsgdmVydGl aXOhpGTrsC903 IHRvcDsnPlBhdGllbnQgT wOfLYu6R4GaCxr1ZLXytV uwKI4buYBjUJfgLs6ivDu hlVqdJQ1hNPDl ojxwf974KrPiv0uaWZBvv LKaBNdcVCY4Z05za9J8AZ IgSOFiVCB3lFS2wV2yqOs nbjogbGVmdDsg wjJalDsjHQxnEOxiX017I HRvcDsnPkJpcnRoIERhdG L0DG55VQ67jPBuj1C5sWL 7U0ZgBVJnqoem nszejPC9TVUgCURcaA74F u1lxLepNp8nJOEvMVD4EB BrcEYpD0PkrR8sHjWxQLZ sJTReM6JzrZJm GTyuB281ISqnMqO0NBOub rYkW0QyFSQjuHqwVcQ5u3 Q7Wj3JH6L4BJ03DF80xSI bp2Z1sKN6O3Ai ILWkkhzpwweuaBG1FCBaE COktY61Fa8kmTpcQv1uQI KeUZC0BERhbLQtX1GitG8 yOiAjMDAwMDAw D3BpcFQyQEyaS706BSgiZ kC5KOPqkrScP1BmRGQjsA wuRxW2w8S4Nx9LPOn3QL9 1OQ26qXIda5P1 dOO0U5WuUTQguijzsdwly GA4QPCaISLmkQ04Me0hcI buIh1iBLNyYXL3OCTuvZV eH7DgxX3bTjLx FKJnGSXhC6EjfEExQDnwP 137FPxxAiZ2ARGdljYeR4 XvXOZsrFitLtF0w6H0Ca1 ZLIXaNN94QMW3 iKI9TY19SX11M3WmEcnun GFibGU+PHRhYmxlIHdpZH RoPScxMDAlJyBzdHlsZT0 jQl3lGSOqHMEa hOzicOGvFbDem6fqODCxB MxkAA7zfNfnR5UvyBY8HI Zgl9y3Uw08Z60dE3EixOD +ZHPjaIJ1aCB1 rO3dEbQlVdJ2JHwjU382P rYvqFRoHsyxt7chg0ntnS y8BpE2OMIectRzmSjhQLU 4a0YhXo38U16j IHdpZHRoPSIxNSUiIHZhb Imveo5peO4lCx1+PGNvbC K1kBO1uJ2cWoRnPxW6KIp aO763MvTyxNCi Eiowm5ery0dzqAx2ZbMvU PZmfvCtwMrxQSM1b4ZyOb 88T2XwkGvvx3KvEcn6df4 5dEZay6K4rKW3 I6VwVQVnyexqwOJnsXooG O8eWSVohgzdKHEokV9fSE MnE6m2QbQbTtL3NPogD0H ukiA3WUJfsSHl UUtdRST1N37ol6G0KIXgB HSlLOA7rIR2uA2amQocen ogbGVmdDsgdmVydGljYWw eKKfbY886OBWy mMtaCBVspV2pOPSipDPqt QnfQW8lBRGedxkwQbPYGq KCJlFLOEIYS6jFJaGPZL1 4YK95hPOov6R7 lYX3W5MnMCQklqsxywhjx UD8XWRqIJIywB36nRPzRI wmNz9vc5E0z386OBErVYN vmI84Ni1hgOai PNQwfYGViP7vtgcsb1gto sjxDbByGCHaIKn1NSe4GM NbdIxxVbOoLCI5EcD5EHL 9qBYpjG8xnBfb dxcvoV3xDvh+MDkvMDMvM Bn0TuzgyEN+NPWmJYM2iV scAQurPLLmiJ5kVCVxK5m 5NxCwYtU6WIup A7LeHKAtzcwyLc98dI5xQ hVpIlT4IEnxM0FsssP8IL VcxPZlBJuhIJW2U80uq0W 0ZYMdPQCkSXD7 vVG3sY2ucWoucsxvuYChs DsgdmVydGljYWwtYWxpZ2 90TKBflGnxJcQ6UEosVYA aRN60HF24iUIq i3C9cJJ3O0XzNQYievqgd ukbzJO4FULsEXTzcU74uV ZdDWibDk4sm1O0p781IGR mZBCwqI79Gj5z qPvkEJIgvSMCyV3qyqjmp 0gqqxlpElOnBQJeXIi7OJ h5BKWwiHhhHpBkITL0LuO 6DQD3uOPuqT5a cPvmvcnhrI3pYhj+TWFsZ TwvdGQ+MVNgZYD1bRcvJF fdCBWdvM5gOEBcK3a1CkV cOtU4EChyB1Nd EHQrgcwpEw90tR0oGlIiR uH5PXbyR8OtjtC5UYMrfP ChJQilBXT6T65jj9Y4QLO hPGUgVNB4yFF6 lS4ltEspleyegKMhaByak qMhoTzqBHbyFOhdG072SK LgiUaxKg81zXRnfXzumwM 3U1ExHwuzuGR+ FL32SMWpAP22yVPobKHfw 6mukKc7IlQwIKYpTDH6nP qaJCbep3GvHNEjK57gdZG mc9V3IWCfpLnd fNLwSmOxtEK6eU7tRCpcf tyzu5sqriquShrts1xavc 89jT58B27sCAqsGSFrDYG zMCUiIHZhbGln ow8bvH8pHp6+WYTohUY7s OL0uJ4qUmEaPkD6JQcdN1 62PtEnlRXrFhlbr7ist6s zaVw4CcUaGXUv reCvnLmfFRS7s5MwHz51I 29sIHdpZHRoPSIyMCUiIH ZnjKwmnq6gnD2rDu0+PC9 ha9ofrf23gG15 dHI+UQKgVMZ2vTntLEjlQ DOxfY6jAPhfUhP3OSEaDu MulL67dEJdRRbsBx4upMs pgKypNO7eZUMy evxrm281LtUmq1bmFFWgu TQtTDdjRXH2F98eg8K9KD PtRCRwLHB9iAS4zT3ugIk nbjogbGVmdDsg hwAenYipHDhyPCetO330N QQklYtuHlUxbMDlF3onnt RWCZ4lLimvyGD+PHRkIHN 0eWxlPSdwYWRk pV4aQMGvO4i1PxZyDwK4F XfvI1WmmiW7DGGrgOPdMI ZqrOIEoH3ogalrn2tgiww gIzAwMDAwMDt0 FHq7XFIhqOstNkPsNRI5X mS4JJR1xHGxkZ1pxQmhob cudT0rWfn+RklOOjwvdGQ +XIOkZPK8lRob EKlgGVFxvZ9dCVMyF3n0B tGhRzX3SKdrS8IvatT7DI VspJOsSAGbgFPDyP5basl ts7pnrshzLrNu WNJfWZy7BOy7ABPizWldV aRhVHW9FzT2SMA5uMZsuW 5smUizdbghvK0kXbz+TVJ OOjwvdGQ+PHRk ESQ9tAsdHAbgUETwnB2sE ONcY2i2ScRnAoQ6MNjqS0 AiiiZ5EBDhhYJoPUElzLY TkG8yljbpc5on nuqqTdVdQDFgOBg4NGl9L PUovTjpZjRxMAN7GrM0BP T3wBRfkY2gzRcbkqbbgC0 wOyc+BXU7GRD2 AU33AD66N1HaTzdsaUTpc +PHRhYmxlIHdpZHRoPS ahRJEmNpHctFvxGF7hDx9 yZGVyLWNvbGxh cHNl (more content not included)... Normal [facility] Consent for Treatmenton 09-29 Consent for Treatment [id number] 204 [id number]#1 .00CD:127 Normal [facility] Patient History Officeon Patient History Office [id number] 2039 [id number]# 1.00CD:127 [facility] Sleep Office/Clinic Noteon 0 10-09-2021 Sleep [...] Follow-up With When Contact Information Kirk MOREAU, Basem G., PUL, LUZ MARIA Within [address] [place] [address]- Additional Instructions: Problem List/Past Medical History Ongoing Smoker Historical No qualifying data Procedure/Surgical History broke leg. Medications George 325 mg-5 mg oral tablet, 1 tab(s), Oral, q4hr, PRN Allergies No Known Medication Allergies Social History Alcohol Substance Abuse Tobacco Immunizations Vaccine Date Status Comments SARS-CoV-2 (COVID-19) mRNA BNT-162b2 vax 09/30/2020 Given Prophylaxis SARS-CoV-2 (COVID-19) mRNA BNT-162b2 vax 09/09/2020 Given Prophylaxis diphtheria/pertussis, acel/tetanus adult 12/05/2019 Given Normal [facility] Comment on above: Result Comment: Elec tronically Signed By: Kirk MOREAU, Beth Ramirez\.br\Date and Time Signed: 10/09/21 11:41 EDT Sleep Studieson 04-27-2021 Sleep Studies [id number]# 1.00CD:127 Normal [facility] Coding Summary.on 04-25-2021 Coding Summary. CD:[id number]:[id number] G h0bWw+PGhlYWQ+DH8EHYE nP86arBCblA3ZC5iSCH6Y JSVYOXZBBF5GKB2dyAA4D BnuV4EvhoVl ScqdtWDoQP62ECi6DLP6a DdhVGoycJ3giKRjI3a9Sx IhGZ32rN13RPjxMBTxYxJ 3LjZpbjsgbWFy P3vvZvScfNCxFju+PHRhY mxlIHdpZHRoPScxMDAlJy MhoMoiEY9sMo4oOBTwZYE vbGxhcHNlOiBj q7psXGExHBwzLG2cxPwsN 2OwoQZ9YROea4s7Jy97lR I+ZFVqHVK9xHmcKDhwn87 1AeZnl2djCUM1 sWMjRZuwBFM5Q85wy9U4L TKvKKNpCAY8oXV0nN2siI bflcxuW0KagTThEyF6IJU 8hTQfxF1bzPiq usbcxF1bYgo+P58ZTU2JZ BGOTW2DCog9K2NtOrokkM I+UH18IMVcYW73vWGklUQ jw2usyEc4McBx REHrGET3fWueMIbzn5UbG CXcT62juXPyb4R2NINirS zemHZoBrWksFX9iO9cPMf moijro3trdgyh Cenfp6nevb72lU33V00lH JifXSZkCLQ8VIErYQOcjR vmgs0mpJ5vQx4+EWvip5x xt5mjxSg1HtRc RPNrmxWaqFnqYMH9d6GxB g68D3BvgYgia9IoFph3eq 43wRVns7H8sMQ0DFliABE zcD9dUBiqLkO5 EDDhQiAdtN73vBPzQGqcG p7cgDcwpNojWK5wDILdch pgHBQfmC7oJPKfuYHslWf cVR8hYCTphqse t970AmNdAOF9VKPueICpD 4ClrO2jEnJtQCUnYBCnD5 GboIDeNWzaK109NVnyCuM 7LVVsmrFaC4Si UGYlrIijRyW0l1G4Jh7Rk 2MxwuyqPHB8RFkjFHJfFd Y7BaVjGxY8J0SvLgp8XDV tjMzkIX8rS8Pa WPIgcthdljfwbBE1WXMsD LFaoQ41yAJbYHbnKm8pv0 E5v347LATbFEIerP68Ji9 udDogMTBwdCBU rR0zcpojc1rrbfetItEuD FZuTNt7TSs2VSKvlYdcKc RpGRD3OgH9PWN9eUYnfT4 bfWytbaakzH9j Oyc+W42jwG2sQDQ7ODN0x nmuWINcbqZqKA82ZZ81O7 RyPjwvdGFibGU+PGRpdiB ddRdjUB0iRbRu a4foe8QbTGeuI5StPHBaV WrhSyr4XWEmWVB5fWJ0cU 6oILAgCQipc6C2lSC7N2A uugWfpm3ug9jm CZJwJUzuF07nzLCcm8I0R QNqnMZ8GNDshAsvBgNdyB 93Oyc+ZAVjtKshg2AbZvb ln3vtw7yzaNr4 EjEeCYMlhsHfwQsfOUU4h 2AxYq63A28fDEcjQHIrNC FwDAZsTQCzgMjnbn9ptP7 wIi8+PGNvbCB3 sSE9uJ8nUPIlRwD5RJweF 677DwJadLPaRelrv0qna1 bldNj5GgIuVJRdwiAxwRb iVHM3m2HcWf07 H97lKGdoYEMvSRLfHVScB QDocZwugs2vnS4fWr7+PC 8mb5cplf49jU27uPE+PHR lBVX4dGgoLVab FXAddH3qHMsyVnT1FRTuP eRkvF04hRMgEAzqUb4erE kiyCquQU0zRXHtazlso84 8ZxVmk6umGWMh rJKvRXtaSJR0Q32lp8Y8T TQrLEKoMQJ8oCY1cL2heG lnbjogbGVmdDsgdmVydGl gTHchDEvaS484 IHRvcDsnPlBhdGllbnQgT aPfPKy3N4XgToz2FUOocC ecOD3nhSGpAPxbIq8gvXu imHhmJF3pDPFz njwfb181QrNdb4dlQVHqp RSxGQktFHS0N54wl6E3VK YqIMPsNMA3xOY9kY0pzOp nbjogbGVmdDsg cgWmrQasOLxgKUszU567V HRvcDsnPkJpcnRoIERhdG S6ZI14PX97dAAxx9R0yFA 3G8CxOOAetwbl ohsbuAT5WDSbPRNtkD43F e6rpArpGo1bRRTjIVN1IT KzwUQqS0PelW3rLtXeYBS xFDLcJ6TfmWLj HTcmM805IYsfIdE7TGBrh uUsY8GbFSLkiBjhSdV2e1 M3Lu5FV5V0PB69XL50bVP py8E1xOL1R4Oj PDKpudejsuoxeMA4JLYkQ OAolP64Kr9avBchMz6cRQ PwBSM8GCFmqJZiB9KwsV8 yOiAjMDAwMDAw X5WceXYhWMgbS571SCvwX rX1IHYjnuNuJ9QkXFVarK ldElT4y4L9Gi9LMTy7YA5 1XK36iBFfl1R6 yDX1S3AhBJUxbpzfhisxm SL0YWFkOUHbdG20Vf0xpG rcVt9cIHXpVDS1NPAbrBQ bE2OecM7dMbYo XQUhDMVdR2HwkNXdALiwT 238MMnfHgH7FDYvwzYoF1 BvWOApiFxnUqU2g1U7Ln6 MSXZvOV96DAV2 bNG4GH49HC31X8KfZypbx GFibGU+PHRhYmxlIHdpZH RoPScxMDAlJyBzdHlsZT0 wIk4pDSCjGMOn eRimfTAuYgBop6wsBCBpM PhySZ2ujAtsQ3PjrRZ4ZA Ypj4f2Ha26K60lQ7HmbBU +NIHntBE6vYW3 xP2oOgGwKvO4WOoeU540H fFlgORdJzkvj1ysx7zyeV o1JaI3ARHrkcDiyCybIKK 8q5TxFl83N57s IHdpZHRoPSIxNSUiIHZhb Flmxc6hwP4pKz8+PGNvbC O7tOG0cQ4gBgLpKrK0IBd sI710SoWiuDQk Lgoid7wpp0irkPy1BfAzM QUkkxKdcZurJRW9i4VjTj 63C6KkgDquk8YvUjw8ko9 0oBWij9K2nLW8 P2VtIDLdpmywfYHsxQbcP N1rVWPaihubLOOezU8zGL YyH8w4DfNoWeQ9CRxsJ4S hrvU9JOXkhCHs LFbpVZK5M09ui0K8AQXjR BOrYMO9gNF3pT6koLabye ogbGVmdDsgdmVydGljYWw fFVmuU057WTYn uWhoEAZlhC6hQINvgFZhc RplXE9uENSfpcycRqCRVz BRMsCHQYUAB6tJXlNZZU5 3ZP72pRSpt2C8 zMT2Y5UaFEFwwgwawoakp SU8RXKgEGOrzT88vTHwLZ hgGc0hn8B9r543EOBuMVM ehJ73Li0obQhd FKMebNKRlP6hmqrkp2iag jnkJcQjVBEfVPn2DWl7LR ZpaHdfZkXdOPD4JdC3RBJ 8wZNxdT8krSes kzxvoG7vYoh+MDkvMDMvM Jt6RjaywZC+JIEbLYD1wK fgDObdIOUbzN9tEVVsF8h 8BtYmXaN7OGcl H4KgATAaefloNw03sX6eN lBlWfB8AIvrD4PtebP7DB YecLTmNEojHOK8W81ik7E 8FLAmBNYwMFH4 cME8iQ5gmJamykpkbBXct DsgdmVydGljYWwtYWxpZ2 90MLFxmVsbJnC7XJlnYFQ yAW67VR62oYLr n5M6sRL5F1XqNQPxxzicj ehemQC8OKFkBWCveO24gX SuQSfaTg9gl3O6v036IZL vQFPmhT28Ai6s cNjsNIHcvUXXeV4qccptu 1doxfubXvVeFIHtUEc1LY x8DJDssHrnCnIdASR2PiQ 4XXH0qRJklC5o zIqxcflrvD8vBtu+TWFsZ TwvdGQ+JBKyQJV9eWzkXZ txMHOklM7rUXVyJ0m6FwD sNfR9GAcxS0Da PHBxdjogSt95eW2mWqGoU hA4LNrqR3YszuT5MVEiqE CkFIksYKO1E06xd0S0UNQ kGLXuPFV0jCG6 kT4vaIogxejowRMrmMczc lTyuIniABwzFBqaN101ZB GgwWdlHv54sIJzdKidhkS 0M9YzBiqibUJ+ NG56NILiBB05gZTgzHOek 8ujjRz3DrNmEZWtHFD8gT srOJbzb0IlTPPoH54xeVJ xn4A2LYJdhEfp jPRuPqKvqVJ6nU4zSEvtg jtrv3ralpfmTkpzc3lvxp 59oT52S56dYAdkREKrHBV zMCUiIHZhbGln rw8ijE5aXk5+AZAbxWM1y YQ5iJ3wSwXoKpU2RTdiH6 97MtUlzFCoIopju7rch9e qbHk1HgZxAIDf ofThdJmoGYF7y0VdKx72C 29sIHdpZHRoPSIyMCUiIH UrzFfciw5enY7eWo9+PC9 ls2xmsw12oD25 dHI+HEIuRNM3aGofUPcoP MYpbF1vBDsxPyD7LAKiUn CvaW16cVJxKHvkWa2vyYu vvBdgCS8iXLOv cvxsq340ClByc1edSCXdt SKoEBbeWGH3W68gz8E1KX KvKEHvREV4dEL4fM6hrPo nbjogbGVmdDsg loPplLpkRKnuKXeoR986G TYqdXnlSkWuwEOrE2jjdv YERM6jEnryyVA+PHRkIHN 0eWxlPSdwYWRk bU7bQZOeW9o3TmVfFaF6D VniQ3TsvtV9EZQobPVpQB SfnWYCcH1ydcdsg5drrli gIzAwMDAwMDt0 XWg6BYOxcGvcLwChTAE9V mJ2WAJ6wZCbeK1qlOtnla pxtF1zHsp+RklOOjwvdGQ +WABuWJI8oQwe VQwqYLVlvT9vDMUnM6h1M eVpWvQ2DAbgY5AsgaR1GT KowMZmRNNheXHGzZ2xmcv ij3qzgdpeZnMr QULaEKl7BFj8CWAddUogV yXaVWO2RwJ9LNY4sYYweO 4atSatubkngW1iUsv+TVJ OOjwvdGQ+PHRk XED6mHtkPOfpPXLyjE6bO BJbJ2x0SmLzLsC2VVcbN6 LjtvS9YVUmlJFnFIVjyPR TeE5bpvaij9xp gfsvLdApORAmTUq7IVj5C TYrrXrkEuIrKBZ3IfG8GW F0fOWmmD2cbXfgcjdnaS3 wOyc+OPV5JRZ6 PK07WQ38L3DcNsdrrUXdt +PHRhYmxlIHdpZHRoPS auOCNdQwSxdHrdXK0lTg8 yZGVyLWNvbGxh cHNl (more content not included)... Normal [facility] Prescriptions/Work Noteson 1 Prescriptions/Work Notes [id number]# 1.00CD:127 Normal [facility] Consenton 04-21-2021 Consent [id number] 0 [id number]# 1.00CD:127 Normal [facility] Patient Eval Forms Officeon 04-21-2021 Patient Eval Forms Office [id number]# 1.00CD:127 Normal [facility] Patient Eval Forms Office [id number]# 1.00CD:127 Normal [facility] PT - Consentson 04-20-2021 PT - Consents [id number] 0 [id number]# 1.00CD:127 Normal [facility] Patient Eval Forms Officeon 04-20-2021 Patient Eval Forms Office [id number]# 1.00CD:127 Normal [facility] PT - Consentson 03-31-2021 PT - Consents [id number] 0 [id number]# 1.00CD:127 Normal [facility] Patient Eval Forms Officeon 03-31-2021 Patient Eval Forms Office [id number]# 1.00CD:127 Normal [facility] Physician Orderon 03-16-2021 Physician Order [id number] 0 [id number]# 1.00CD:127 Normal [facility] Sleep Studieson 2021 Sleep Studies [id number] 4 [id number]#1 .00CD:127 Normal [facility] Coding Summary.on 02-23-2021 Coding Summary. CD:142632WM:[id number] G h0bWw+PGhlYWQ+WC1ABSL iU24zwXHvhV5TR9tKRI7G AKWTJHNDUM4QLD1duJO3E SshZ0PtkcUt WlqkcAPdSE73ADo7MBE7w TgkZGffmI4juJQjQ1z5Yf ZiBP61iM99WRrnTXUwEnE 3LjZpbjsgbWFy M0hgRjYdyHJyEkb+PHRhY mxlIHdpZHRoPScxMDAlJy NipIqyKR0iFz3mWROvDMD vbGxhcHNlOiBj c4oyAAOfJQrjXW3heJyuT 6IlmVQ5QCSqo4k2Ty63rX I+DYQbDQC0yFhtCGhxb52 2RxQez6wlZFW2 fBUkCTyaABZ4D03tj5B7R TBkWRCkYAA6xZP1kV0nhG uzuhgzY4GiwWVeUxB8CBK 2mWXxrY9omXon apqpsT9mPtd+N74KNN6AA QODRJ2XSps7Y5VdEgtksI I+JP45HUWeMB10wNLxcJS pl8miuLx9MjNw FJCeLNX3fMvpPXvae9FhI AAzU83yhIMgt4P1IZVugG bcgGRsSaNnfSM2yJ1zYMa jfogcg1vtxwte Olswc2unru03vB07N40fG HovFHPsUGO1WGKpWDSdjJ klnf6qdZ8oMz1+ESqzk5p vw7rboDw1CpXh XGAsvgXlsXuaQHJ1p1DqQ u57B4OcnAycl3IaIst1fa 44iQGki9U3yFQ6WMguUBV spM0tHDppLxP3 BCKrMpUfoZ65iEKoCJnjE e9qqUnzfOaqAB0jUHIojn bbOTEchC4uSXHcrEPpyBl xQR3wUSRcezda i640MtHbMRQ8LQJdoAEaR 7EdfU7oVbXcSULpHJYyK4 LlsXGpRKgyX058SMrtPjV 1IDExgmPrL6Cj EYPjiSkkJhJ3o9J5In9Ju 9UrzpsdUAR1MDpdQKR9Wr S6YjVaOtQ2R0XtHyi8CEZ fhJnoMB6oG1Dw RYOvbeyrhvaktJU5XPNnB LTzzP08lJNzKVtmDp2oj2 U4j073YGVjZATvdR61Ml5 udDogMTBwdCBU rN0vvbxrt3guadtwEuGlV OCiSUs2FRv0GPRkcTyjHl VrVFH5QkZ7ESQ4jHSkpG7 wgCsqgmreeP4s Oyc+B49vsF1hPNN9GKW5q jpyBQQlffIoAW87DY35G8 RyPjwvdGFibGU+PGRpdiB bpFohAY3pMmRj o7gki7VpEGrpZ1PyXQGpR VouSno6EMUfMFT9xNI6iN 3mTTBgNPehs6S0uIT0Y7X gohDips7bi5up GCVdGQsuH51jbCGbg4V4G PYwoFX3RIHiaBzcGoTkoD 93Oyc+TIAygGzqy1JyVxz yf2guo9aleYb8 XkHzNZNfrwLbaGvtITT0a 9GkNm91O46iVFgwFHNnGR HcEZClBFJhrVodiy8csH1 wIi8+PGNvbCB3 yEL7sO1dPIChNcH1RXsoI 308WyNggTZbItdyg1nfl1 uvqDw3CkWnBFMnnkVloOu qHPK6k3NhPx67 E64eCVjcCDDoGBMaEOYmK VJdcTtlab3zuU8vVh6+PC 3gd3vfwn92cD38cRT+PHR bUEY7dFhgTYig HTCvbA2wKOnlBlQ6RIQoF yNllH79xWQcBSqlGz8ptM abzXrwIZ9sIIJqemrkl04 9BdRxe7hdYYHf dZBdBQaqFAQ5D72qg1U1F WOsSBZvRGO7cYF6oY9bzN lnbjogbGVmdDsgdmVydGl rFRltIWdlI196 IHRvcDsnPlBhdGllbnQgT jMmHNo2K2EfNsp2EPUajC seWO7yzYCrUJyaVp8fxTr xbHtkKU5rFCBr hhchi142HlIci3dcOSCmq FRqIGjcQXD0D37wc2K8MJ TdUYPxVOE8fSU7gZ0vnAw nbjogbGVmdDsg siYdmCvuVGftCDsgD481J HRvcDsnPkJpcnRoIERhdG A5FS15MC20yTPyu8I6uVC 7F1NpOHIcxuhs kluniQK1VKZiOZMojA06J c7fbRquZb0tILZzGHW7NW LwhGOwV9BbpK7mVwIfJYY iDQAwY3DdvEHm ARxaO588NEcsMtX0HUJrg rQeA2GxTTPsqQrhIzF3y3 J6Ov1QW0N7XP75ZW70gWO co8I1qLD8Z4Ae GYWzwojncmipnLD5CWNaO SAceH18Sb8qmYvhSl1uKJ VpGSO3OGUpxJNfU5SwfP8 yOiAjMDAwMDAw U2IwuTKoZPslO469YEggJ xP0JNUlmtFfA1CpYGTspN wuGpU3z8Z8Nd3GCBu8LI9 1JU49hCCzw9E1 zJV3D1SqXCZyeaduaktuy UX1SLKpBUUvnQ99Xa1mpW zoFr7pKYYeQKE3MQQetUM jV9EekK4eFbIl CROsUDWmA5NyzFVuIEhvR 568QFwmCnF9XCKxwpZlJ2 KgHHTakLmtRwS5m8O0Tf4 UMLHfUB55UPI5 nRQ4LY62ZY37X3CtTjoio GFibGU+PHRhYmxlIHdpZH RoPScxMDAlJyBzdHlsZT0 wJu1rUWSqKHQh wMhnyNNtIbYts3fuZHTwX GykLV0oiGalZ7AvdTW5OL Hxf5w0Ae89N46xG0YruWE +CVCcoQJ5iCA8 hJ8dKwIoYwJ1XWdxM237S qRraIXuKjvee0ocg4mhyO t6PlG3PSSczvEslLgfPOZ 0d2IkHu38R26l IHdpZHRoPSIxNSUiIHZhb Wdbgh5hdR7mQc5+PGNvbC C5vFQ0dW2oOnOmAcO8KBd dR130LeYnsJDh Hjgti7afu4djvZy7OyMmX LTcosXqfCsuRVV3e1JyZz 42N0YgdHiil7NsPei2nj4 6cMNrk8K3oHS9 U0ZqPFZvsdqsaKVkcAvnZ C2eNCVfdwmxWSGovS8nFV YlO1r8VjTeJtW6ZNecV6D tqdY6VFZfuRGx VHltLHX4J70lj6G6YXDzL YRyEEV6eEN2lM9sxXpvyr ogbGVmdDsgdmVydGljYWw fMNwxF449JKCz zDucIWMcrU8pUMPjfPKrl GsbTD5zKTLhyqncPjHDPc QIXoXIGJLYE3nKCcMJIC6 8SW92qZUev6A5 sXF5O1OrYUHkgjhkrnwuy MF5WYEuASGpvL73oPUcZA tiFp0en4B9k206VVBoILW qwT28Hf2eiBnw XTIzuPYDuF9ppzecg3wyg zzoOsTaUUGwJJr3GQz8XP OsgGolDzLiENV3VjW3TPM 0iVAvnZ5dzXbv nklvoK2lDrp+MDkvMDMvM Fu1DdvwrYF+OJDvUVL5oN qdQCypFNOreJ5mNKAcL9r 8SyVnJjR6RIsj O8YgRWFawkjaBe31aD3bP nZnMwZ3OSveE3PvqvD2IL ElsXYxXYatCFZ8V09tn2T 8WEGvWWTmRQU5 qLS5mF0bvVmvfaruzZIup DsgdmVydGljYWwtYWxpZ2 35OPSbvGriLdC0HBdzBWY xXF06FZ67tYKj a6W5rGG6F1GvBJNptoimo dkqrWL1EKSqRZBqmO88dB RsFTdsRm1hq5I5j086INM oJEYqsU04Rd0i qGrrXFYgwQUWtJ2mxdvpr 7iyylxqFgWfNSFlUBi2OT b9JXEusKqsPfMlFOJ3XeI 9TVH0tJJxuR0v vHudiqmsxG5dShf+TWFsZ TwvdGQ+LEAjWVR5fStxYD saLKSwuH0aKPEkU3a8XmS fTwR0RCoiI8Kl VSPzbdzzOw59sK1tCeBjA bK9XBzsO2JtaxF4BQAbwM VjPJrzOQK5V13cu6T2MSB sAHElERN4zMO0 rW4xkNjzezztnOKejKafq fJonIvuYDlpDLcdK710XJ SljAcvJq03bYToyKbitkJ 0I8LvVgpqjUE+ CM84IQKbLP44zIKefGSnh 1tyeQo4FrKgFEHoZWV6jM qsFIots5GyTFRcM81xiLG dy7O7LKQdlKod pLJnRdAozUS9yX9zQUomn yztc7rzumprVpoqw6bbky 43kL40Z65dALvtLMBfSJG zMCUiIHZhbGln mk9qfM9dIu1+SRCkiWP7e CJ5zI5mZmFtNiL4PLfsO6 01NdIccLWdIfdeq0nqm6l dwYh8HkSqBCBu rhQjjZovIVM6b1TvJh02Z 29sIHdpZHRoPSIyMCUiIH TnpRyejs9doU4vXz6+PC9 mr1feej51wQ52 dHI+NDOoKHQ2cFiuMDyyU ZGbnZ1sOSmqGwY6ZAEiLa QilE82bKQnIIgbYh7qmOm ngNiaKV9uOLDd tpegs852VtFxc4hsQZVsv GPmKVljZDA8P74ka1W6SP TvWJYwWKZ3wBZ5hM0unOb nbjogbGVmdDsg psGkpFvyYOntMObkN172S LWwzXujXsEmvFUcS9towm PKPU1mUcuijDH+PHRkIHN 0eWxlPSdwYWRk kE6pZDJkQ7y6YqZdBlY0B MvrY4WxlgL0JLUbfRLpLL BbwEEWaT5chekvb3zudum gIzAwMDAwMDt0 UYt5PIElgDfcHuMxYPP9F cA7JWX0mUDlyT8umOxopg kucR4hKxa+RklOOjwvdGQ +RFRjYNE4cDbx VAyaPUNsqG8yJHPhU6t5X mEsKtV8KNupJ8IntgC3VR HsqUDiFDJrqZSDgX0fhgc uk3xdcyhsFwEi KTReIGk4FLz5QVXifRexH wJeVJL5EsN2OQK7dBUwjX 1jpEawkbkchZ1vKlh+TVJ OOjwvdGQ+PHRk DAL7tCvoQSbhZNVmmZ6dX ULqC8r7DkIaVbZ6JCwoA1 FtukF2ZMPvkQSmQHKpiZU OqS0enlnhm1qp lzxdAzDhXSBnTVv7WXk6U QQgtZkbXcHkTAB0YpG5YR N6uNAglT8xhHbakvkaaS3 wOyc+YOT7AAA3 BS72PF63D9TjExtdlANbq +PHRhYmxlIHdpZHRoPS llZTUqHlMbdDdpJV4kAi3 yZGVyLWNvbGxh cHNl (more content not included)... Normal [facility] Coding Summary.on 02-22-2021 Coding Summary. CD:[id number]:[id number] G h0bWw+PGhlYWQ+ZJ7BTZC oR82myHHwyB9LD7aUVO4H JGKRBWWRNN2WTB4tmMC6N JtsF5YiosGl OmgoyGFeOC08JAz4VDT2f LiaJXuyyT3nmQPrA1q8Aa AkPI50kZ59QYubKHRxDkD 3LjZpbjsgbWFy Q9svSsGjcSPeWma+PHRhY mxlIHdpZHRoPScxMDAlJy UlrJpkCW1dPq1jJFVeRBN vbGxhcHNlOiBj b9uiBIAeEQwyAJ9ewOvbD 7SipAN5IGWvu2h2Ul15jZ I+FHWbSHK7yZxjPZxak53 2XtAei3cxSOH6 tQMzPImcMDK5A86ws4Q6X WIxZQFxNVI5uKJ9dD6ayN gvneowM5VcpZQaZpX8XKW 9nELdhZ0anIoe bqcyqQ8dIkd+S57LKF4QJ FHQAP1RSzz9N2DaFtnswW I+JB17CXEyGB79wHDytNV ft8rkbRt6EmIo TFGiMPW0kNflMNamh7YcC LCwN92siQSzy2Y7QFIpmL rloBOuThVdhEM6fY2iFRy zpypge5ltdjlm Zhypz7jwzc13vS50S98lX IplSFLjRBY2JRCjEZIfcI nyft5mwX5gEi0+GZamg5t js9zlvBr5DlDw ADJwzzVouBqxISK5m1ToT n86H4HwbDesl8ShRmy1je 64iCOjh3U3yXE6WDtqNNC amQ4yOOkrJnQ5 VQWxEjSmyH47pBWiVMsyI u5pvPdcwPnwNM1iNDDdgr weSLSnwN7dDUFucMTfnVd hWZ0yPXZkehez i685KnYmKJE8OAPtmRNzN 9YrrA8iSbLxWPUrINEwZ1 QkaCBoLAsqX669ORkiPrJ 1RSJexsDkA0Dm BMJwlVabEnP0o8X3Ty3Ia 4MvbusaXEL4SDlyYAM6El V4SlRrItC5R8TvZmt3XDG wcFufGG5lV1Hg BFPhfhncdqpkpGS9NQBkU TZgaP65zOLdHEzhAl5qo6 A9p798NGJmHFYflA37Wd9 udDogMTBwdCBU oE0dhxiia8gifrfuBhVfE NUiCCk8BTj3EXPboHvkDy CuVWK8BwP2DLH6sHFshO0 mgJrtzumqrA4q Oyc+M73zjS8xJVL7HOK0h ialEEMvezJaAJ98WP63R8 RyPjwvdGFibGU+PGRpdiB lqAxbEN4aRcAd p8kyt7KmLDqxL0BoWKMsB XqnAou9BQGlCEV0iFN9nB 8cYPHvEMfqg8A9hAW6J3I ecoTans6ur6vt XPBuXBkbW27zeNWzo6D6C IEqeKC2IEDnpAzeKiZouU 93Oyc+EOMifAuif2ZbYji ya6zao4iwiAx9 QvHgAWNzdrSmqEhzBVD5g 1AlJj44D70iQBpaGNPqSI AxSBKkGIZejNalah0avJ7 wIi8+PGNvbCB3 mQD8mW2wWUPzIqS1MPgmJ 729OmYaiLRcNicei6iko8 evuLn6NsUtTIRongRblMp nGJB3i5PwHw38 K81kCUmzRZPsWENhFEJuX GGvaXosmp9uqI4lQq2+PC 4vc3hdrx43uP86eKQ+PHR hPAJ9hGisWUxs XYYpdQ8vJYpdUtQ5DJIlW iJtmD20iKQpIQeqIz3hsH jcrTkfWV9kXNNxtdprq63 9XrSjz2pvGYUe gMLvQZhzRBV5E58sj7B0M MLqRVMuSUT8qYD8aE3pvF lnbjogbGVmdDsgdmVydGl kGShzFOkgC519 IHRvcDsnPlBhdGllbnQgT dTwHZj5E5LqSje0AXMzyP yjOJ5bdBArPKuhUk5ekGa tpHazYU4pWNHy mfliz232GwYwb3zgRFOop FYyPHqiYVK1A02ur0Q1PI LdTWLsSNK0eUC6xB6rtQs nbjogbGVmdDsg mrWvcXysEDzwMRvdE824L HRvcDsnPkJpcnRoIERhdG S5VE06FU56bZRvn6E5vNY 5X7BjCYUrloav tcnhyLJ5FYAdASKofM03Z t0vdOjnCv0vXUZiQWC5NB AbsOBrC0VecL9zMxZbYBH qYNFeV4VzoJTd KCvoQ018JKywHhG1JHIif fHzY8PfDKSyaTqvAbJ7z1 Q3Nl9CT1U9DL50CP89jNU io6M5ePG5T1Ya YDStsqvbervyvIB1YZBkH KElmN10Gh1bdSliQh8wLV UjLMM2ONTakDZdQ2QfjK4 yOiAjMDAwMDAw P6WyuKTnBNkcP458WOdiF zZ5HPRiuyRuO6SwHLMoaW bdTsR8j8N2Tr1ONUj4US6 0FO17kPPjh1R8 vVY6D8LhTQYyqbfblnpww QW4NVDfJIDofQ82Ci4iqX diFc8eBKZwJTT8YTJoeKC pG5DmsP2qFpIs ULPjHWUoI4TwcOZmAYkfK 654VNxgSvC5CMQrllXtD4 WcZIOymXywDlI3x5X3Ul0 OVTUwLF01NUN7 rES8VX02PV58S9KpYvfmh GFibGU+PHRhYmxlIHdpZH RoPScxMDAlJyBzdHlsZT0 oXe0uZTUqYJWh uIzhpADuAlJij8uhULEbP AwdFW3nfZwhO2FylKT4CB Iov4s3Wc45D73zR3WbaWC +QGGtiUK6kMY2 rO6bAkPlVpO8VPdzU320V tXflBLaGmhlg1kam9ojnG k0IaQ9DLGopdWggThbTOD 1q4UiWg01D22h IHdpZHRoPSIxNSUiIHZhb Kwezd7vnN0lDw7+PGNvbC M6fTV0lJ9wLnArUwS3BNc fS635XqAulGYa Ercts7tav2kykGn0NyAoT PXuudCeuRjhFEL7z3IoAq 57X3DtwXlzp9CdDes2se0 7zUNwq2D0lWL2 L7XiLTJethwgtPPevIfaT Q3oENBgxdckOUNrxZ2hWY PkQ3i5DdSqHfI6KUfpO4W tekI8CNCmxFJa APhjFHW1B32ns5I6FHUvL UQgEBQ7gKY7uT6ohXjjev ogbGVmdDsgdmVydGljYWw uMImxJ114CSGq oZbyBKFqfG1tXFQhbPPru JstEM7xIFLntrigGtMJKu MKHlOMKFOPT3pLZdCRHX1 1OR69kJVbh7V9 bOZ7Z5OhCYZzvjalryxmg YU8IBHeYKApjV24rEKtEK pfTu7uv5O9z332YHRzWLA akZ46Ax5yiSdq RDGidWIAzF5rffrts8vup chqDoIbYGIxRIo9YVm3WG ExlPhzPvHaXNH4LvZ7SYN 9lKWsoP6gxGhe hraexY7cYdk+MDkvMDMvM Dr8OrivyMN+DYDxVXE0bJ niRMvnAKMnxZ3rLNOfY6l 1MhQgOeV4ULur A1KxTFVbjozgKy46bG0zZ xMlUlY8KCeeQ5IhygY8QE ScsIRiBAxcHIN5C80cq7B 7GRFaIALpGND1 pUG8qK5xvTvjyjqwePYth DsgdmVydGljYWwtYWxpZ2 66UHVatFknWzV5KEicJLO aRT43TE97sFDn a1F3wKV0S7JiGUTtuwfms agqeAZ8MSQqGCOzjS35kB HyBIibEg4oq0M5z601ADZ zJUHkdN30Dv0u dXqkCNRflPNPcT7nwhler 3sdlwbdLjInBAAwTNl9BF p3ROEwaHmuVtObJJQ9FyN 9DRH9hVXugR1t zEmzcwzuxY2wCgv+TWFsZ TwvdGQ+RYVqPPH6zOkzGJ ljKNSbsU8rCYIgM5n1UuH zJsR1REknS3Rw SPOtklfhOm39vR4jEaBaD cY4UCtmQ4DwanW8CGKpaZ OhMEqwZTX0Y01nn5O7PAW rWMWuNWI7xIR1 eK5qfBddectrcGEthHnak hDkfMkbMYnfNBukU977YX VmrBeiLi53xUEomKtzqrN 5Y9AcEaftfJF+ RP16DSCyAF27eJPfeHYta 0zdfWx9ZyDxCWFtTEF1dF xoLWiyd3JsHULrV39ikOP ek3P0ZUNwyUio sQPuAjJhlEA4fW5cXUmbx cmen7tkympqBihbj3aqoq 30cP08D84zVDjqKAOrDTY zMCUiIHZhbGln ps4kjX9pIk3+SNSpgQI3w FY3lS6rUwRsHzG5RXqeU6 15AhLvnIDrWorfp8wwc0g dsBo2LhAuJMZs zhZymTtgJKV1y6EkHi57E 29sIHdpZHRoPSIyMCUiIH SzsUalaq6pwM0cQn3+PC9 if9kqyw04jE86 dHI+PGTzVAF3nQxtJVmjL ZWilQ0cYPqeLoE3CSWsXz XvpJ66qOPeCFrkMg4wvYm ijXuqMA9tHVXe nrrld617LxEfu5vfPOWgg ZMzHSvuIWY0L16gk9D4DQ GwXCSaZME6zWC0gZ8wdLo nbjogbGVmdDsg szAwrKbgNTuhQLbxB153C CRutWjgEaOuhVQlU9drqd OGAN7ePqgguEF+PHRkIHN 0eWxlPSdwYWRk gL2oWZBfX8h5TpMsAfE5I RmnO7XmbzE8HHWtoUFlCE QjoJINwU3iqhacd4rieth gIzAwMDAwMDt0 EUe9EEIlvLfzRaEuQWM1I fR8TTW4pJHhlX3tkMrlce jokU2qZuc+RklOOjwvdGQ +FONmXXE1aBqc TLseSGOktD8bJANqN8w5H qItGkT3LFfvW8OzmrY8UA UgnSYxUAIxcMEYoT5wczk ct5ytwkqfZrYr EQFzZQc2TQb2YCPslLhwH rSiGFM3QxY1RMR2oNNlsV 3jpSkaigaxiK6pSln+TVJ OOjwvdGQ+PHRk BXP1mBmyOJjcJPShiR9hU WIgG9q1LtZxOyV2VXkoJ5 RnosS4ZHBlaWObHHZqeKP DiI8qejrrr7sr peflIjHgTNDrHGt9OXy7M DBmsJsrBnAxJIM8RrG1OU Y5fUBupA5pyJfmusfhqR2 wOyc+EVY2ZUD2 OB43KD37D2AaQufckLAkb +PHRhYmxlIHdpZHRoPS qsRMFmDlRbfFldRF6mKg8 yZGVyLWNvbGxh cHNl (more content not included)... Normal [facility] Patient Eval Forms Officeon 02-21-2021 Patient Eval Forms Office [id number]# 1.00CD:127 Normal [facility] Consenton 02-20-2021 Consent [id number]#1 .00CD:127 Normal [facility] Patient Eval Forms Officeon 02-20-2021 Patient Eval Forms Office [id number]#1 .00CD:127 Normal [facility] Patient History Officeon Patient History Office [id number]# 1.00CD:127 Normal [facility] Physician Orderon 02-16-2021 Physician Order [id number]# 1.00CD:127 Normal [facility] Sleep Office/Clinic Noteon 0 02-15-2021 Sleep Office/Clinic [...] MOREAU, Beth Ramirez, PUL, LUZ MARIA [address] [facility] [place] [address]- Additional Instructions: after his testing is completed Problem List/Past Medical History Ongoing Smoker Historical No qualifying data Procedure/Surgical History broke leg. Medications George 325 mg-5 mg oral tablet, 1 tab(s), Oral, q4hr, PRN Allergies No Known Medication Allergies Social History Alcohol Substance Abuse Tobacco Immunizations Vaccine Date Status Comments SARS-CoV-2 (COVID-19) mRNA BNT-162b2 vax 09/30/2020 Given Prophylaxis SARS-CoV-2 (COVID-19) mRNA BNT-162b2 vax 09/09/2020 Given Prophylaxis diphtheria/pertussis, acel/tetanus adult 12/05/2019 Given Normal [facility] Comment on above: Result Comment: Elec tronically [...] Chino Mcqueen MD 08/01/20 Final result Normal [facility] No acute abnormality of the cervical spine. Multilevel degenerative changes. [facility] (deja mi), Best Five Reviewed Claudio, Mhpn Incoming Radiant Results From [employer]Like[employer] - 08/01/2020 1:22 PM EST EXAMINATION: CT [...] of the cervical spine. Multilevel degenerative changes. [facility] [place] Best Five Reviewed EXAMINATION: CT OF THE CERVICAL SPINE WITHOUT [...] There is no prevertebral soft tissue swelling. [place], [place] CT HEAD WO CONTRASTon 2020 CT [...] Randolph Roman MD 08/01/20 Final result Normal [facility] Claudio, Mhpn Incoming Radiant Results From [employer]Like/Pacs - 08/01/2020 1:20 PM EST EXAMINATION: CT [...] fossa. 2. No convincing acute intracranial abnormality. [place], [place] EXAMINATION: CT OF THE HEAD WITHOUT [...] of the visualized skull or soft tissues. [place] 1. Streak artifact from dental amalgam limits evaluation of the posterior fossa. 2. No convincing acute intracranial abnormality. [place] CT THORACIC SPINE WO CONTRAS Ton [...] Panfilo Middleton MD 08/01/20 Final result Normal [facility] Claudio, Mhpn Incoming Radiant Results From [employer] - 08/01/2020 1:29 PM EST EXAMINATION: CT [...] fracture or malalignment of the thoracic spine. [facility] [place], [place] EXAMINATION: CT OF THE THORACIC SPINE [...] SOFT TISSUES: No paraspinal mass is seen. [facility] [employer] ID No acute fracture or malalignment of the thoracic spine. [facility] ID [id number] ELBOW LEFT (MIN 3 VIEWS)o [...] Randolph Roman MD 08/01/20 Final result Normal [facility] Claudio, Mhpn Incoming Radiant Results From Artist Growthe/Pacs - 08/01/2020 1:11 PM EST EXAMINATION: THREE [...] the left elbow. 2. Minimal degenerative changes. [facility] [place] EXAMINATION: THREE XRAY VIEWS OF THE LEFT ELBOW 08/01/2020 12:51 pm COMPARISON: None. HISTORY: ORDERING SYSTEM PROVIDED HISTORY: trauma TECHNOLOGIST PROVIDED HISTORY: trauma Reason for Exam: fall Acuity: Acute Type of Exam: Initial FINDINGS: No acute osseous abnormality seen of the left elbow. There is minimal degenerative changes of the left elbow. No evidence of dislocation. The soft tissues demonstrate no acute abnormality. [facility], [place] 1. No acute osseous abnormality identified of the left elbow. 2. Minimal degenerative changes. [place] Vital Signs Date Time Vital Sign Value Performing Clinician Facility 09-19-2023 08:30-0400 Body height 185.42 cm [facility] 09-19-2023 08:30-0400 Body mass index (BMI) [Ratio] 25.6 kg/m2 [facility] 09-19-2023 08:30-0400 Body weight 87.99 kg [facility] 09-19-2023 08:30-0400 Diastolic blood pressure 72 mm[Hg] [facility] 09-19-2023 08:30-0400 Heart rate 57 /min [facility] 09-19-2023 08:30-0400 Systolic blood pressure 162 mm[Hg] [facility] 06-06-2023 10:15-0500 Body height 185.42 cm Adriana Mejia Other [facility] [facility] [address] Other 06-06-2023 10:15-0500 Body mass index (BMI) [Ratio] 25.54 kg/m2 Adriana Mejia Other [facility] Other 06-06-2023 10:15-0500 Body weight 87.82 kg Adriana Mejia Other [facility] Other 06-06-2023 10:15-0500 Diastolic blood pressure 70 mm[Hg] Adriana Mejia Other [facility] Other 06-06-2023 10:15-0500 Systolic blood pressure 159 mm[Hg] Adriana Mejia Other [facility] Other 04-19-2023 09:30-0400 Body height 185.42 cm Adriana Mejia Other [facility] Other 04-19-2023 09:30-0400 Body mass index (BMI) [Ratio] 24.7 kg/m2 Adrianaugo Mejia Other [facility] Other 04-19-2023 09:30-0400 Body weight 84.91 kg Adrianaugo Mejia Other [facility] Other 04-19-2023 09:30-0400 Diastolic blood pressure 77 mm[Hg] Adrianaugo Mejia Other [facility] Other 04-19-2023 09:30-0400 Systolic blood pressure 159 mm[Hg] Adriana Jackie Other [facility] Other 01-06-2022 07:59-0400 Body temperature 97.7 [degF] Kirill Simon [facility] 01-06-2022 07:59-0400 Diastolic blood pressure 88 mm[Hg] Kirill Simon [facility] 01-06-2022 07:59-0400 Heart rate 60 /min Kirill Simon [facility] 01-06-2022 07:59-0400 Respiratory rate 15 /min Kirill Simon [facility] 01-06-2022 07:59-0400 SaO2% (BldA) [Mass fraction] 98 % Kirill Simon [facility] 01-06-2022 07:59-0400 Systolic blood pressure 202 mm[Hg] Kirill Simon [facility] 08-01-2020 13:03-0500 Body Temperature 97.59 [degF] [place] 08-01-2020 12:35-0500 BP Diastolic 73 mm[Hg] [facility] [place] 08-01-2020 12:35-0500 BP Systolic 149 mm[Hg] [facility] [place] 08-01-2020 12:35-0500 Pulse (Heart Rate) 76 /min [facility] 08-01-2020 12:35-0500 Pulse Oximetry 99 % [facility] [place] 08-01-2020 12:35-0500 Respiratory Rate 18 /min [place] Encounters Encounter Date Encounter Type Care Provider Facility Start: 10-14-2023 End: 10-15-2023 ambulatory Brett Mantilla MD Facility:[facility] Start: 09-19-2023 End: 09-19-2023 ambulatory [facility] Work Phone: Start: 09-19-2023 End: 09-19-2023 Patient encounter procedure [facility] Physician [facility] Work Phone: Start: 06-06-2023 End: 06-06-2023 ambulatory Adriana Mejia Other [facility] Other Start: 06-06-2023 Office outpatient visit 15 minutes Adriana eMjia [facility] Start: 04-25-2023 End: 04-25-2023 ambulatory Adriana Mejia Other [facility] Other Start: 04-25-2023 Telephone encounter Adriana Mejia [facility] Start: 04-19-2023 End: 04-19-2023 ambulatory Adriana Mejia Other [facility] Other Start: 04-19-2023 Patient encounter procedure Adriana Mejia [facility] Start: 01-13-2022 End: 01-14-[address] ADRIANA MEJIA Facility: Start: 01-06-2022 End: 01-06-2022 Emergency department patient visit Kirill Simon [facility] Start: 01-06-2022 End: 01-06-[address] LENA MARIE Facility:[facility] Start: 01-03-2022 End: 01-03-2022 Patient encounter procedure ADRIANA JACKIE [facility] Start: 10-09-2021 End: 10-09-2021 Patient encounter procedure Beth Bradley [facility] Start: 08-01-2020 End: 08-01-2020 Emergency department patient visit [facility] Start: 08-01-2020 End: 08-01-2020 Emergency department patient visit [facility] Work Phone: [facility] Comment on above: Closed head injury, initial encounter (Primary Dx) Procedures Date Procedure Procedure Detail Performing Clinician Start: 08-01-2020 Ct thoracic spine w/ o contrast material George Alcala Work Phone: Start: 08-01-2020 Ct cervical spine w/ o contrast material Georeg Alcala Work Phone: Start: 08-01-2020 Ct head/brain w/o contrast material George Alcala Work Phone: Start: 08-01-2020 Radex elbow complete minimum 3 views George Alcala Work Phone: broke leg Beth Bradley Plan of Treatment Date Care Activity Detail Author Start: 12-04-2029 DTaP/Tdap/Td vaccine (2 - Td) DTaP/Tdap/Td vaccine (2 - Td) [place] Start: 03-01-2020 Influenza vaccination Flu vaccine (#1) [place] Start: 2018 Pneumococcal 65+ years Vaccine (1 of 1 - PPSV23) Pneumococcal 65+ years Vaccine (1 of 1 - PPSV23) [place] Start: 2003 Screening for malignant neoplasm of colon Colon cancer screen colonoscopy [place] Start: 2003 Shingles Vaccine (1 of 2) Shingles Vaccine (1 of 2) [place] Start: 1993 Lipid panel Lipid screen [place] Start: 1953 Abdominal aortic aneurysm screening AAA screen [place], [place] Start: 1955 Hepatitis C screening Hepatitis C screen [place] XR Lumbar spine 2 or 3 Views [facility] Immunizations Immunization Date Immunization Notes Care Provider Fa cili 04-19-2023 influenza virus vaccine, unspecified formulation [facility] 04-19-2023 influenza, high dose seasonal, preservative-free Adriana Mejia Other [facility] Other 09-30-2020 COVID-19, mRNA, LNP- S, PF, 30 mcg/0.3 mL dose; Translations: [Pfizer-BioNTech COVID-19 Vaccine] [facility] Comment on above: Reason for Medicatio n: Prophylaxis 09-09-2020 COVID-19, mRNA, LNP- S, PF, 30 mcg/0.3 mL dose; Translations: [Pfizer-BioNTech COVID-19 Vaccine] [facility] Comment on above: Reason for Medicatio n: Prophylaxis 12-05-2019 tetanus toxoid, reduced diphtheria toxoid, and acellular pertussis vaccine, adsorbed; Translations: [Adacel (Tdap)] [facility] 04-27-2019 influenza virus vaccine, split virus (incl. purified surface antigen) Adriana Mejia Other [facility] Other 04-27-2019 influenza virus vaccine, unspecified formulation [facility] 04-27-2019 pneumococcal conjuga te vaccine, 13 valent Adriana Mejia Other [facility] 07-08-2017 diphtheria, tetanus toxoids and acellular pertussis vaccine, unspecified formulation Adriana Mejia Other [facility] Payers Date Payer Category Payer Unknown 2018 Medicare 1961 Medicare [id number] 1961 Private Health Insurance [id number] 1955 Unknown [id number] 1953 Unknown [id number] 1953 Unknown [id number] 1955 Unknown [id number] Social History Date Type Detail Facility Start: 08-01-2020 [facility] [place] History of tobacco use Cigarette Smoker [place] Start: 08-01-2020 Tobacco use and exposure Never used [place] Start: 08-01-2020 Alcohol intake Current drinke r of alcohol (finding) [place] Start: 08-01-2020 Alcohol Comment daily 3-4 beers per day [place] Sex Assigned At Not on file [place] Tobacco [facility] Comment on above: smokes 1 ppd. Sex Assigned At Male [facility] Start: 1955 Sex Assigned At Male [facility] Functional Status Date Assessment Result Facility 01-06-2022 Functional Status N/A [facility] Clinical Notes 10-04-2021 to 06-06-2023 Note Date & Type Note Facility 06-06-2023 Evaluation note Encounter Date Diagnosis Assessment Notes May, Removal of michelle (ICD-10 - Z48.02) Pt tolerated staple removal well. Pt denies LOC or fall without reason. He slipped in slippers on an icy patio with dog outside. Steristrips applied.. Keep area clean. [facility] Other 10-20-2023 Evaluation note* Encounter Date Diagnosis [...] to quit smoking. Agrees to LDCT at [place] [facility] Other 07-09-2022 Evaluation + Plan noteExtracted from: Title:ED Note Author:Ramon Gauthier PA-C te:01/06/22 Otitis externa (H60.90: Unsp ecified otitis externa, unspecified ear) Orders: ciprofloxacin-dexamethasone otic, 4 drop(s), Ear-Right, BID for 7 day(s), 10 mL, Refill(s) 0 [facility]07-09-2022 Hospital Discharge instructions Patient Education 01/06/2022 [...] antibiotic even if your condition improves. Take [id number] and prescription medicines only as told by [...] 06/17/2006 Document Revised: 11/21/2018 Document Reviewed: 11/21/2018 [employer] Patient Education 2020 [employer]. 01/06/2022 08:25:56 Ear Drops, Adult Ear Drops, [...] 06/11/2002 Document Revised: 05/30/2018 Document Reviewed: 06/20/2017 [employer] Patient Education 2020 [employer]. Follow Up Care 01/06/2022 07:58:43 With:Elizabeth Veliz Address: [address] [place] [address] [address], [address] [place] [address]- Business (1) When:01/09/2022 08:19:10 With:ADRIANA MEJIA Address: [address] [place] [id number] Business (1) When:01/09/2022 08:19:07 [facility]04-06-2022 Hospital Discharge instructions Follow Up Care 10/04/2021 10:34:18 With:Kirk MOREAU, MANAV Vincent SUR Address: [address] [place] [address] [place] [address]- When:1 year [facility] No data available for this section [facility] noteNo InformationNortEn[facility] [address] Other Evaluation note* Diagnosis Onset Date Resolution Status Lumbar pain with radiation down both legs acute [facility] Work Phone: History general Narrative - Reported* Type Description Date Medical History Depression, controlled Medical History Generalized osteoarthrosis Medical History Transient insomnia Medical History Obstructive sleep apnea Surgical History Hernia Repair Surgical History Left ankle surgery - with plate s and screws 2014 Hospitalization History SEE SURGICAL HX [facility] [address] Other Hospital Discharge instructions No data available for this section [facility] No data available for this section [facility] Discharge Instructions * Instructions* George Alcala, DO - 08/01/2020 Thank you for visiting [facility] Emergency Department. You need to call Adriana Mejia MD to make an appointment as directed for follow up. Should you have any questions regarding your care or further treatment, please call [facility] Emergency Department at [phone]. Take any medications as prescribed, if given [...] Everywhere. * Head Injury: Closed: General Info (Albanian) documented in this encounter Assessments Diagnosis Closed head injury, initial encounter- Primary Summary Purpose Family History No Family History Records Found Relationship Condition Age at Onset Recorded Date/T estevan father Family history of other condition Unknown Malignant neoplasm Unknown Unknown Not Specified Malignant neoplasm Unknown Family history of colon cancer Unknown Advance Directives No Advanced Directives Records Found Advance Directive Response Recorded Date/ Time Advance Directives No September 18 8:20am Chief Complaint and Reason for Visit [...] Records FoundNo Status Records FoundNo Status Records FoundNo Status Records Found INFORMATION SOURCE (unrecogn ized section and content) DATE CREATED AUTHOR 08/02/2020 [facility] DATE CREATED AUTHOR AUTHOR'S ORGANIZ ATION 01/17/2022 [facility] DATE CREATED AUTHOR AUTHOR'S ORGANIZ ATION 01/18/2022 [facility] DATE CREATED AUTHOR AUTHOR'S ORGANIZ ATION 10/28/2023 [facility] Care Team (unrecognized sect ion and content) [...] BE BASED ON THE PRIMARY CLINICAL RECORDS. [facility]. provides no warranty or guarantee of the accuracy or completeness of information in this document.
[2023-10-28 07:42] VITALS: BP 147/67; PULSE 67; TEMP 36.7; O2SAT 97
[2023-10-28 08:25] VITALS: BP 174/79; BP 180/79; PULSE 54; PULSE 60; O2SAT 97
--- NOTE | 2023-10-28 08:28 | W.PM.PROCNOT ---
Date of procedure: 10/28/23 Pre-op diagnosis: Lumbar spondylosis Post-op diagnosis: same as pre-op Procedure: Procedure: Bilateral L4-5, L5-S1 medial branch block Medications: Bupivacaine 0.25% 6cc The patient was seen and examined in the preoperative holding area.? An informed consent was obtained and placed on the chart.? The patient was brought to the medical procedure unit and placed in the prone position.? A timeout was completed verifying correct patient, procedure site, positioning, plan, and special equipment.? Using aseptic technique, the needle was placed at left L4. Under direct fluoroscopic visualization a Quincke-tipped spinal needle was advanced to the junction of the superior articulating process with the transverse process at the designated medial branch segment.? Preceded by negative aspiration, the above-mentioned injectate was placed in 1 mL aliquots.? The procedure was repeated at left L5, S1.? The needle was removed and insertion site was covered. The same procedure, at the same levels, was completed on the right side. The patient was taken to the postprocedural recovery area and monitored for an appropriate length of time before found suitable for discharge in the company of a responsible adult. Anesthesia: Local Surgeon: Brett Mantilla Pathology: none sent Condition: stable Disposition: no change
[2023-10-28] MEDS: LIDOCAINE HCL 2% 400 MG/20 ML MDV INJ (08:29)
[2023-10-28] MEDS: BUPIVACAINE HCL 0.25% PF 25 MG/10 ML VIAL 8 ML INJ (08:29)
== END 2023-10-28 08:32 | disposition home or self-care (01) ==
PROVIDERS: PCP Family Medicine; Visit Provider Anesthesiology
DX: M47.816 Spondylosis without myelopathy or radiculopathy, lumbar region (principal)
CPT/HCPCS: 64493; 64494

== ENCOUNTER 2023-11-07 08:09 | Outpatient (OUT) | payer MEDICARE, SELFPAY ==
--- NOTE | 2023-11-07 08:22 | P.CN_ITS ---
Consult Note: HPI Data of Consult Patient: known to practice within the last 3 years Consult date: 10/14/23 Requesting Physician: Xiao Santamaria NP Primary Care Provider: Adriana Downs MD Consult Narrative Reason for consult: low back pain Narrative: 68yom who presents for evaluation. persistent low back pain, worsening over past several months. imaging reviewed, which shows facet arthropathy in lower lumbar spine. engages in provider directed home exercise program >6 weeks, without benefit. uses meloxicam, which helps minimally. took mdp several weeks ago, which helped significantly. denies adverse med side effects. recently underwent bilateral L4-5 L5-S1 MBB #1 with >80% improvement in pain and functional ability immediately following and 2 days after. Significant improvement in ability to ambulate distance and mow the lawn without stopping. cc:: CC: Xiao Santamaria NP Review of Systems ROS Status of ROS 10 or more systems reviewed and unremark able except as noted in history and below Musculoskeletal Reports: back pain PFSH PFSH Medical History Low back pain ?M54.50 - Low back pain, unspecified (ICD-10) CPAP (continuous positive airway pressure) dependence ?Z99.89 - Dependence on other enabling machines and devices (ICD-10) Sleep apnea ?G47.30 - Sleep apnea, unspecified (ICD-10) Smoker ?F17.200 - Nicotine dependence, unspecified, uncomplicated (ICD-10) Hypertension ?I10 - Essential (primary) hypertension (ICD-10) Surgical History S/P inguinal hernia repair ?Z98.890 - Other specified postprocedural states (ICD-10) ?Z87.19 - Personal history of other diseases of the digestive system (ICD-10) History of surgery on lower extremity ?Z98.890 - Other specified postprocedural states (ICD-10) Social History Smoking status: Never smoker Meds Home Medications and Allergies Home Medications ?Medication ?Instructions ?Recorded ?Confirmed ?Type escitalopram oxalate 10 mg tablet 10 mg PO DAILY 10/14/23 10/28/23 History lamotrigine 25 mg tablet 25 mg PO DAILY 10/14/23 10/28/23 History losartan 25 mg tablet 50 mg PO DAILY 10/14/23 10/28/23 History meloxicam 15 mg tablet 15 mg PO DAILY 10/14/23 10/28/23 History Allergies Allergy/AdvReac Type Severity Reaction Status Date / Time Unable to Assess Allergy Verified 10/28/23 07:44 Exam Narrative Exam Narrative: Psych-alert and oriented x 3. Attentive and appropriate, constitutionally prema l, displays normal mood and affect per situation.? There are no obvious deficits in memory, reasoning, or intellect.? Skin-no obvious rashes, bruising, erythema noted to the patient's area of pain. Extremities- extremities are warm with minimal edema and palpable pulses. Lumbar-no significant tenderness to palpation noted in the lumbar spine and paraspinal musculature.? Pain is elicited with extension, and lateral rotation of the lumbar spine. Range of motion is slightly diminished with these motions due to pain. Facet loading maneuvers are positive bilaterally and do appear to be concordant with the patient's normal complaints of pain.? Coordination remains intact.? Gait remains non-antalgic. Constitutional Documenting provider has reviewed patient's vital signs: yes Common normals: no apparent distress, oriented x3, healthy appearing, alert and well nourished General appearance: cooperative [facility] Common normals: normocephalic, hearing grossly normal bilaterally and moist oral mucous membranes Head and scalp: normocephalic Eye Common normals: PERRL Pupil: PERRL Neck & C-Spine Common normals: full ROM General: normal visual inspection Chest Common normals: inspection of chest normal Respiratory Common normals: normal respiratory effort, no retractions and no use of accessory muscles Neuro Common normals: oriented x3, CN's II-XII intact bilaterally, moves all extremities, no focal motor deficits, no sensory deficits noted and deep tendon reflexes 2+ bilaterally Sensorium/orientation: alert Motor exam: strength 5/5 throughout and no movement abnormalities noted Psych Common normals: mental status grossly normal, thought process normal, cooperative, affect normal, speech normal and activity/motor behavior normal Speech: normal speech Thought process: normal thought process Results Additional Findings Additional findings: If on a controlled substance or opioids, I have checked an [place] report on this patient and there are no aberrancies noted in the prescribing history.??If on a controlled substance or opioid a drug screen was completed and reviewed within the last year, and if there has not been a drug screen completed we ordered one today to monitor higher risk, state monitored pain medication use. As part of providing excellent, safe, comprehensive care, the following was completed at our patient's visit: 1. A medication reconciliation and review to ensure accurate knowledge of current/active medications, including asking our patients to inform us about any [id number] medications or herbal remedies/nutritional supplements/alternative remedies. 2. A review to specifically ensure our patients have had annual screening for screening for depression, screening for tobacco use, and screening for unhealthy alcohol use. For concerning screenings had a discussion with the patient, provided patient education, and recommended follow-up with primary care provider when appropriate. If patient noted with a risk of falling, they received education on strength, gait, and balance training to prevent future risk of falling. Assessment and Plan Assessment and Plan (1) Lumbar spondylosis: Plan 68yom who presents for evaluation. failed conservative measures. imaging previously reviewed. given symptoms and imaging, prudent to attempt diagnostic bilateral l4-5, l5-s1 medial branch block #2 under fluoroscopic guidance with intention of proceeding to rfa. he is in agreement. meds reviewed, no changes. follow up after procedure.
== END 2023-11-07 08:10 | disposition home or self-care (01) ==
LOC: PM 08:09
PROVIDERS: PCP Family Medicine; Visit Provider Nurse Practitioner
DX: M47.816 Spondylosis without myelopathy or radiculopathy, lumbar region (principal)
CPT/HCPCS: G0463

== ENCOUNTER 2023-11-11 09:25 | Day surgery (SDC) | payer MEDICARE, SELFPAY ==
[2023-11-11 10:06] VITALS: BP 161/68; PULSE 62; TEMP 36.9; O2SAT 98
[2023-11-11] MEDS: LIDOCAINE HCL 2% 400 MG/20 ML MDV 15 ML INJ (10:38)
[2023-11-11] MEDS: BUPIVACAINE HCL 0.25% PF 25 MG/10 ML VIAL INJ (10:38)
[2023-11-11 10:39] VITALS: BP 111/66; PULSE 59; O2SAT 97
[2023-11-11 10:40] VITALS: BP 148/73; PULSE 58; O2SAT 97
--- NOTE | 2023-11-11 10:41 | W.PM.PROCNOT ---
Date of procedure: 11/11/23 Pre-op diagnosis: Lumbar spondylosis Post-op diagnosis: same as pre-op Procedure: Procedure: Bilateral L4-5, L5-S1 medial branch block Medications: Bupivacaine 0.25% 6cc The patient was seen and examined in the preoperative holding area.? An informed consent was obtained and placed on the chart.? The patient was brought to the medical procedure unit and placed in the prone position.? A timeout was completed verifying correct patient, procedure site, positioning, plan, and special equipment.? Using aseptic technique, the needle was placed at left L4. Under direct fluoroscopic visualization a Quincke-tipped spinal needle was advanced to the junction of the superior articulating process with the transverse process at the designated medial branch segment.? Preceded by negative aspiration, the above-mentioned injectate was placed in 1 mL aliquots.? The procedure was repeated at left L5, S1.? The needle was removed and insertion site was covered. The same procedure, at the same levels, was completed on the right side. The patient was taken to the postprocedural recovery area and monitored for an appropriate length of time before found suitable for discharge in the company of a responsible adult. Anesthesia: Local Surgeon: Brett Mantilla Pathology: none sent Condition: stable Disposition: no change
== END 2023-11-11 10:45 | disposition home or self-care (01) ==
PROVIDERS: PCP Family Medicine; Visit Provider Anesthesiology
DX: M47.816 Spondylosis without myelopathy or radiculopathy, lumbar region (principal)
CPT/HCPCS: 64493; 64494

== ENCOUNTER 2023-11-20 08:29 | Outpatient (OUT) | payer MEDICARE, SELFPAY ==
--- NOTE | 2023-11-20 08:30 | P.CN_ITS ---
Consult Note: HPI Data of Consult Patient: known to practice within the last 3 years Consult date: 10/14/23 Requesting Physician: Xiao Santamaria NP Primary Care Provider: Adriana Downs MD Consult Narrative Reason for consult: low back pain Narrative: 68yom who presents for evaluation. persistent low back pain, worsening over past several months. imaging reviewed, which shows facet arthropathy in lower lumbar spine. engages in provider directed home exercise program >6 weeks, without benefit. uses meloxicam, which helps minimally. took mdp several weeks ago, which helped significantly. denies adverse med side effects. recently underwent bilateral L4-5 L5-S1 MBB #2 with >80% improvement in pain and functional ability immediately following and 2 days after. Significant improvement in ability to ambulate distance and mow the lawn without stopping. cc:: CC: Xiao Santamaria NP Review of Systems ROS Status of ROS 10 or more systems reviewed and unremark able except as noted in history and below Musculoskeletal Reports: back pain PFSH PFSH Medical History Low back pain ?M54.50 - Low back pain, unspecified (ICD-10) CPAP (continuous positive airway pressure) dependence ?Z99.89 - Dependence on other enabling machines and devices (ICD-10) Sleep apnea ?G47.30 - Sleep apnea, unspecified (ICD-10) Smoker ?F17.200 - Nicotine dependence, unspecified, uncomplicated (ICD-10) Hypertension ?I10 - Essential (primary) hypertension (ICD-10) Surgical History S/P inguinal hernia repair ?Z98.890 - Other specified postprocedural states (ICD-10) ?Z87.19 - Personal history of other diseases of the digestive system (ICD-10) History of surgery on lower extremity ?Z98.890 - Other specified postprocedural states (ICD-10) Social History Smoking status: Never smoker Meds Home Medications and Allergies Home Medications ?Medication ?Instructions ?Recorded ?Confirmed ?Type escitalopram oxalate 10 mg tablet 10 mg PO DAILY 10/14/23 11/11/23 History lamotrigine 25 mg tablet 25 mg PO DAILY 10/14/23 11/11/23 History losartan 25 mg tablet 50 mg PO DAILY 10/14/23 11/11/23 History meloxicam 15 mg tablet 15 mg PO DAILY 10/14/23 11/11/23 History Allergies Allergy/AdvReac Type Severity Reaction Status Date / Time Unable to Assess Allergy Verified 11/11/23 10:07 Exam Narrative Exam Narrative: Psych-alert and oriented x 3. Attentive and appropriate, constitutionally prema l, displays normal mood and affect per situation.? There are no obvious deficits in memory, reasoning, or intellect.? Skin-no obvious rashes, bruising, erythema noted to the patient's area of pain. Extremities- extremities are warm with minimal edema and palpable pulses. Lumbar-no significant tenderness to palpation noted in the lumbar spine and paraspinal musculature.? Pain is elicited with extension, and lateral rotation of the lumbar spine. Range of motion is slightly diminished with these motions due to pain. Facet loading maneuvers are positive bilaterally and do appear to be concordant with the patient's normal complaints of pain.? Coordination remains intact.? Gait remains non-antalgic. Constitutional Documenting provider has reviewed patient's vital signs: yes Common normals: no apparent distress, oriented x3, healthy appearing, alert and well nourished General appearance: cooperative [facility] Common normals: normocephalic, hearing grossly normal bilaterally and moist oral mucous membranes Head and scalp: normocephalic Eye Common normals: PERRL Pupil: PERRL Neck & C-Spine Common normals: full ROM General: normal visual inspection Chest Common normals: inspection of chest normal Respiratory Common normals: normal respiratory effort, no retractions and no use of accessory muscles Neuro Common normals: oriented x3, CN's II-XII intact bilaterally, moves all extremities, no focal motor deficits, no sensory deficits noted and deep tendon reflexes 2+ bilaterally Sensorium/orientation: alert Motor exam: strength 5/5 throughout and no movement abnormalities noted Psych Common normals: mental status grossly normal, thought process normal, cooperative, affect normal, speech normal and activity/motor behavior normal Speech: normal speech Thought process: normal thought process Assessment and Plan Assessment and Plan (1) Lumbar spondylosis: Plan 68yom who presents for evaluation. failed conservative measures. imaging previously reviewed. given symptoms and imaging, has now undergone 2 bilateral L4-5 L5-S1 facet medial branch blocks with >80% improvement, will proceed with bilateral L4-5 L5-S1 facet medial branch thermal RFA with 10mg PO valium for anxiety. meds reviewed, no changes. follow up after procedure.
== END 2023-11-20 08:30 | disposition home or self-care (01) ==
LOC: PM 08:29
PROVIDERS: PCP Family Medicine; Visit Provider Nurse Practitioner
DX: M47.816 Spondylosis without myelopathy or radiculopathy, lumbar region (principal)
CPT/HCPCS: G0463

== ENCOUNTER 2023-12-02 08:47 | Day surgery (SDC) | payer MEDICARE, SELFPAY ==
[2023-12-02 09:24] VITALS: BP 168/80; PULSE 52; TEMP 36.8; O2SAT 100
[2023-12-02 09:50] VITALS: BP 142/72; PULSE 56; O2SAT 98
[2023-12-02 09:54] VITALS: BP 156/71; PULSE 48; O2SAT 98
[2023-12-02] MEDS: TRIAMCINOLONE ACETONIDE 40 MG/ML VIAL INJ (09:58)
[2023-12-02] MEDS: BUPIVACAINE HCL 0.25% PF 25 MG/10 ML VIAL INJ (09:58)
[2023-12-02] MEDS: LIDOCAINE HCL 2% 400 MG/20 ML MDV 15 ML INJ (09:58)
--- NOTE | 2023-12-02 10:07 | P.ON_ITS ---
Date of procedure: 12/02/23 Pre-op diagnosis: Lumbar spondylosis Post-op diagnosis: same as pre-op Procedure: Procedure: Bilateral L4-5, L5-S1 radiofrequency ablation Medications: Bupivacaine 0.25% 6cc, lidocaine 2% 5cc, kenalog 80mg The patient was seen and examined in the preoperative holding area.? The site was marked.? Written informed consent was obtained and placed on the chart.? The patient was brought to the medical procedure unit and placed in the prone position.? A timeout was completed verifying correct patient, procedure, positioning, and special requirements.? The skin overlying the target points, the designated medial branch, were prepped and draped in the usual sterile fashion.? The target point was achieved with a 20-gauge 15 cm with a 10 mm curved active tip radiofrequency cannula under direct fluoroscopic visualization.? The needle was inserted at level L4 on the right side. Needle tip position was confirmed with lateral fluoroscopic position.? Motor stimulation was carried out at 2 Hz up to 5 volts with the absence of extremity activity.? This was repeated at level L5, S1 on right side.?? Sensory stimulation was carried out.? Concordant pain was realized at the above- mentioned sites.? Then radiofrequency lesioning was carried out times 90 seconds at 80 degrees times 2 lesions at each level.? The radiofrequency probe was removed prior to cannula removal.? The above-mentioned injectate was placed in 1 mL increments.? The needle was removed. The same procedure, with the same steps, was then completed on the left side at the same levels. Insertion sites were covered.? The patient was taken to the postoperative recovery area and monitored for an appropriate length of time before being found suitable for discharge in the company of a responsible adult. Anesthesia: Local Surgeon: Brett Mantilla Pathology: none sent Condition: stable Disposition: no change
== END 2023-12-02 10:11 | disposition home or self-care (01) ==
LOC: SURGOUT 08:48
PROVIDERS: PCP Family Medicine; Visit Provider Anesthesiology
DX: M47.816 Spondylosis without myelopathy or radiculopathy, lumbar region (principal)
CPT/HCPCS: 64635; 64636

== ENCOUNTER 2024-01-01 08:06 | Outpatient (OUT) | payer MEDICARE, SELFPAY ==
--- OUTSIDE RECORDS SUMMARY | 2024-01-01 08:12 | XMS_ITS | CCD ---
Author Organization [facility] Care Team Providers Care Crm Marketing Executive Name Role Phone Adriana Mejia Primary Care Provider TOMI ESTRELLA Attending Unavailable ADRIANA MEJIA Primary Care Unavailable ADRIANA MEJIA Primary Care Physician Esther Padilla Unavailable Unavailable CYNTHIA, DR LENA Campbell Attending Unavailable CYNTHIA, DR LENA Campbell Consulting Unavailable JACKIE, DR ADRIANA Hammond Primary Care Unavailable CYNTHIA, DR LENA Campbell Admitting Unavailable MEJIA, DR ADRIANA Hammond Attending Unavailable JACKIE, DR ADRIANA Hammond Primary Care Unavailable MEJIA, DR ADRIANA Hammond Admitting Unavailable ZIEBER, DR SIMRAN Campbell Consulting Unavailable MEJIA, DR ADRIANA Hammond Consulting Unavailable Adriana Mejia Unavailable Jose Rafael MOREAU, Brett Wilkins Attending Unavailable Jose Rafael MOREAU, Brett Wilkins Attending Unavailable Jose Rafael MOREAU, Brett Wilkins Attending Unavailable Jose Rafael MOREAU, Brett Wilkins Attending Unavailable Allergies Allergy Classification Reported Allergen(s) Allergy Type Date of Onset Reaction(s) Facility (3 sources) patient allergy list reviewed by nurse or physicia Propensity to adverse reactions 9 Comment:Done [employer] Other (3 sources) Allergies Reconciled Propensity to adverse reactions Unknown [employer] Other Medications Current Medications Medication Drug Class(es) [...] tablet (3 sources) Opioid Agonist Start: 11-03-2018 Bancroft 325 mg-5 mg oral tablet 1 tab(s), [...] at bedtime for 0 *Pick strength-form from [employer] for eRX* Dec, Active take 1 tablet [...] Oral daily for 30 *Pick strength-form from [employer] for eRX* October, Active losartan potassium 50 [...] by: SIMRAN MATIAS Date: 2022-01-14 09:21 Normal [facility] Coding Summary.on 01-12-2022 Coding Summary. CD:[id number] G h0bWw+PGhlYWQ+OH2TDTA kI93wpDTbeK8HJ1yCEW6N WXZSGLCAQW5DRE5tjFV1U TvnU0JovdJr TrxytZXoZS19FMu1NZI7r ZmbVDrklV8xoKNtT7n8Xa IeFA74tP13PYysBLLiAbM 3LjZpbjsgbWFy Q0mmVjAvvHOnJyt+PHRhY mxlIHdpZHRoPScxMDAlJy GbaZkwUH9bHo0nETEwMNP vbGxhcHNlOiBj t3ggTLYrJAslLB8isOrjE 3ShlRF9RPZtm1x0Ns14wF I+KZSnOZR9xXunOQqdx78 2KdGxx9hlGIT8 xSMyLAamBQM9I12vp4V2H JRnXVWkSXE4nOA7zS8grU mbfqfgP8CogUWtVtU1BCP 4tUBluS7hyOhv lheijK9tSya+W91CMI4NP AFDTR6IMev8Y2QlIxbskT I+YQ48KPEgXY20nVGgsJP wh8skdJw1MySt POGzVLH8uSocHJkyc4JkP RVhI36lhYGny1U8ITEqcE svoZQlFsYpaEQ0vS1mQLv eubzlk1isbcti Oewrl9vmkk16dG13G98kX FjrVPIuAUB2MNLkTCRelO kmto8boF2yBf4+EQfmh7u zc4qqbPm8HyPd FFSoqbGjjElmVZA4i6PuF t82Y4JwsUwne1AtGtf9rv 74qTWpw6S0pNV4SNoxJPN vsV5hIBgzWxH0 EJNzKiNtxL84tUAeSRukW x9sdCzegVcaPJ9wKJVasf knRANnqD1sSSGyaEDhvBy hVV1uVWGsslgm x342CzUvPRG4NGDsfZWqU 4DyrA9bGmWjCUMoFOCqL1 TyzHSrIAecW384FWlqPoG 5JIDswmIjT0Ao TWViaHutKuE5t6O3Fs0Kt 7FbqlmkSIS9HNisBGZ3Ix U8QdGgRlL7I1ThRjd5QSP jfNrwIY9qD4Pg FCRulkptktronMB8TASkP BDgrW45tCInJWngWu6zq5 W5d713BHQbUWOxzR69Ms4 udDogMTBwdCBU jU1yktdnf5ywgtbfFaWiB CKoPFn9TBa9DALamBdnCb CkHSJ6FrB9HJG4oENdkL3 vwZpdlicjqV5s Oyc+S45lxU3sVYB2WFX3q wntSQBydxGiFK60IB27J3 RyPjwvdGFibGU+PGRpdiB ymOzhQB6tYbCa l2hhd2DrCPwpF3GrGIIsS EapBbf9SKGjNHL7gAK7nZ 7yDZDyBMqgj1J7jLP8F4X fsrCsyy0pt2th GJOgCZbzX54rmJAwe7X8K EStvBG1XQJmvBqpJqCaaI 93Oyc+HNCmcUzfb0CaJgr ns4kov2xvkPy2 EqCpDPFcstXqhLisODQ3p 5UoGx06H28mDMozYSQyNO JhCNDdDVCwbVxirs4zoV4 wIi8+PGNvbCB3 eRR5mF6iROHbCdP5KJurF 125RaDuiDLaLivte8pwp4 ewjFz9VqYdZYEvncEmjBd xLYE5v8WfZb83 U24mSPtcHDXaMFDePFGyO VOrcLobbn0gjE2aPv6+PC 7xn5bfuu71bN20pXG+PHR nEQK2mFxsHLqr NBExfA5nARrzGwN6ALHdM fPiyH89pEKlATxzRj1qeY vuvArcXL1qNJAgalbnt68 1VvArt3btPTQu rYRbKYnvCSZ4W10xn5H8N RHkCSIzRHK5tSC6kK1scB lnbjogbGVmdDsgdmVydGl jPOjuDSjdB743 IHRvcDsnPlBhdGllbnQgT xLfNLw4A2YtAal4RIZhvS itGR4qlHAzAPuxQp6yrUt sjHehDI2uFDPt yxong068FzPgv4maXYTxz YYsDLgnLOB6U85ns2E8CW BgZRQrBFV7oUH3iN5vjCw nbjogbGVmdDsg xnNfdKrhXIxwJXdiW724D HRvcDsnPkJpcnRoIERhdG K2ON11RE47cPJuq4M1yFK 4V6XoALFzwvmf yywggDM9BYDiHCZykP95D x0lmZqlWj3bWCGnDEF3BL PitYIfM9UjaR1wYsFiIHY iPDBhO4IzsEEx FVkeW788XDdiVxC7RATri kDsX7QuWXWxtFrdZgB2w2 Q6Lr4VL2T4AL39WG14pWF ou3I3kHE9M5Ur WNJjoanjqqvrrZZ2RGSgX LDdtF91Dg2beNmxYp8aMS MqGSA1IHHigDLnK9ElrJ9 yOiAjMDAwMDAw Q4AfkLMlFBwaU976HQprA sV4FAYxcpKlL7OoTILuoV jlMvT3x2O3Ih1XDNe4BN8 6JT10lDErp3C9 jZN7V6CkUMJqppcfzbcmn EW0WJFxKTGhkM60Hi6vaP hoKl8sGGLiUSX1BJLpmEY wL8YhlD2iHeDz AJCpMLQkD6MvyZYzKPzrI 537URdnWuT8VBTuxqVgL4 HwIKFiyQwbLaO8w4D8Ap8 SHYRdKB49QPE8 gTZ4MU33VF71Q2TtHnczx GFibGU+PHRhYmxlIHdpZH RoPScxMDAlJyBzdHlsZT0 gVa1nAULwHHVh kHdpaJYpFpBli5dbTDNdX EpbLZ9ehUboH8UvtKY7RI Hsl8v2De93H97gX2RqrRM +XBYrdWA2bXW5 hR3cNdMpUiW9CRezW007A xJffHTzLchsl8rgh1lugC z7JqW3QQFvvgQufMptESP 9x7RgYr80A43l IHdpZHRoPSIxNSUiIHZhb Twecz0ntX6wAq7+PGNvbC P3xUA0mK4gExAiKpQ7FJw nR282EtYyhEIi Wlxoh5zra5yvgHk0QlHeN RBvaqMqmBduIKY5q2JjFj 14W8OssFxny8ZkPoo8mq4 2wBJhz3J4xQF7 I4OrYJVmitqtjGJmsZflS Y8jXMCuhtlnSUNgcR4lVI MdF7t3XbXjZvB1PFggK4P vbuW5RIWevNEl FQccSTM1N81uf3D9EEBaZ IUkTOL0pCO8aZ1lvPwvxi ogbGVmdDsgdmVydGljYWw pCHsvV696KNVy rRipMMJxqL2rYUFmbXYid FjvHH5sTREnmpktRzJPLe KMNhXHUCXES4uOJwDLHA9 4SN96kNKqi2V3 sYN9L2MlEWIorjpiotmsg ST2ZDUbZJFoyK85pMHvBK tsCe5pe7A2r729PBPgEZM kyG19Cw4tjCei MXWoqALBaZ3epuskx9iam kkzJsYiIUJgFHj9NFx7WM TraFfkTsKlASN9KvA5LVV 0jSFxpK1uoMvd jnfctJ4fJil+MDkvMDMvM Fu1MwxxbAO+NMBjSCE3dE zxTQquNNLiwU2lJWGtN9g 8WgKqSzM6SBis Q7LxPJPybiwoAe09zI1bR mSnSuT8HLpaK0AjlvQ0YA NqcQPqRRahDIC3Z43py5Y 0RPBmAGKdLSQ8 hLM3bM4dyUbklmdgyDMag DsgdmVydGljYWwtYWxpZ2 45PLXnrMcoMiP6JYszNGI pBV71DK16lVMi h5S6gMX6I2HvZVUnduizf gemePR4DUDsZNRhhE73cK AzKKrpSf1ga6M4m042GXD wRYWwpZ04Dw5c xOxxHMEbrLPOvG4yviiyh 8vbsimyMsLlJEKbZGm4KA d4MRJguCsbSbUiRRG4XaH 6XVU3mVCrkU6g eTglflyeiH8lSmt+TWFsZ TwvdGQ+ENKdCAT4iQgeJX eoJMOhlG2gADHjV3n9TeV pFxR2WWckD6Ig ELJptlhqQp76oR4cWjDgQ pL3HWbyS2LfrpH2AXUudD FiBRtqHGI8L05zs1O1OIL jFYYeHIU3lNO8 eQ1teZbwnbmlhJWtaMrfc zWcsRzvKLgiZHemJ464DH AdiDznLx10iWPpuAsobeH 7P8AqKlheoZN+ SU16SOFzJH06lLJnlVGlm 8amoDy5ZzLlISPyZOM5vG amKQxeo0TbAPCiT41vpBT qn8T0FGBhxFzw kRAnDrHtdST9uF3dMXmhm nhrb0nicrmeGwnmd0icyo 52iB03D42eYImnFIWzIYB zMCUiIHZhbGln do0ceB8jNq7+JAFlbXQ0z HQ2uB6bCwRoXbC0QPwlS8 15UcZoiIQqXthwa4tyi8d zeTi3RkMbPNOo esMzxRrjSGZ3a6QhAq64D 29sIHdpZHRoPSIyMCUiIH AsdVgift5doP2rAp5+PC9 ps1yunx74pD77 dHI+QZMvYLL4aBogGOuiE FRrmW5nSHqxDfF4WDKiFd BfpM48uUBdXLzoOl0vnNm wnQjzAJ6gEJCq putco305OnOoz6okRFQyh ENmKUotUUI7D53yu5A2EV WrONNsUSE8nYQ2sE3uzEd nbjogbGVmdDsg qoUutJgcVJtlXKwkR269N XZvmItlMcDncSObJ9jdet VWZJ7lIpclwCT+PHRkIHN 0eWxlPSdwYWRk tB1sUCOoX0x1UmDyIoY4H HkoS8AnbvK3KEDrfNYvWO SdlSIGpC9mtbtlm0zmdhi gIzAwMDAwMDt0 YQb7HYSboTfaWeEdUMM0J cH6AQF3aCSkhX0awDpxud xxcO1fWth+RklOOjwvdGQ +HGEcMZV9kVql ZJbfDTOunW1oBLQuF8u1U qSvClX2VEosX7OxqlG2GX DfxYIeNUItuZIZyO2ukvw ih0txhfsnMgAy AZElEAf7JCh7HZSbsCcyV xBtVEM9JdT6OPQ4mUYkoZ 2pxZyjzzlwrJ4dQdb+TVJ OOjwvdGQ+PHRk FYG8lOloGScgTBTcpM4tH SCgV0p9XfYvMxI8ZZhgO2 CqppG2WSQtjZDyGSKnyFW IoL9vziyre6vf kxedUqHyRLPfLOx5FQn5A QOhlEjoQsFbTEW5NzQ4SJ S8eOKiwG0koKpiigpwjU3 wOyc+YPY9ZTQ5 OJ69UD96M8YlZnichMUds +PHRhYmxlIHdpZHRoPS maKAFtEyGnoMpqDR6oSx9 yZGVyLWNvbGxh cHNl (more content not included)... Normal [facility] Coding Summary. CD:[id number] G h0bWw+PGhlYWQ+MA8LXJW iV57lqMNoyS9UH4xHTS4X MJTURPBFYM5TVP1qrGL9S QrvK6MptmHw RinudTOxKG41IOc0IGE8r OsmNOfkcB2haATaJ3a1Ze YkPC41iA40MQsbJGVhEeX 3LjZpbjsgbWFy G6lzWoAfuGThWcg+PHRhY mxlIHdpZHRoPScxMDAlJy QetLvoWN6yZs0lXRIbPLP vbGxhcHNlOiBj t4igZKOwXHfgYE5flXroX 4GhnLL9ZTBof3o5Qu40gK I+OROzJUB5zOqyOHune60 4KtDlo2psKSB2 kTIwDRpbWYZ5J81bx3H3O WAgUQZfLLE5lGL2bY1rdX vvgsokH3NnwWQmDcN4CXZ 2dHQydW9lbEjq uctgdO8nBma+D85SOR1LZ IDSFL1TKzg7H1OpMmibtW I+HV73BVTaDP44pQUhxHF rm0fxpIh5GpAp LCPzJWM0gCkaQEqiy5WuW HTcO10rvMOpy2K8GDVfgL ptyLFwSpRqjYT1sO9oZMz ipsmyd8qokhaj Tplbp5hzkq22xE25D67qH NotEMBhQCY7UDSyURIpaD trhq2nhG6uBn1+QYqmo4o rs3miiOj6FrJj GLXskaCkeLjnRCU2a6TnC h72T4OhvWyhb7DhHyd0ge 17xJHwb3M0pLQ6QGpyEYG dzD4kGEeoRxQ5 ASLjWqFixJ37rULtVOkfY r0wfKpasIbnNK3nGHGxqw hmZXPuhS3iPBYxkRBihOo cVA8wPRRknikv t607HqCzNIY4OEVknDJpH 4KvaM4wLzUnJTOeSJCyL5 PulFGjVMroN660NSkpJaL 5EYYtquOxL6Pt GSNvhOiiWoT9q4U7Tc5Pa 4XeoeooTQG9QQvdQNZ0Ec Q1QvEjUuV1O3MsLdk4SFT pcQtqTM5aJ3El PPVravupdevvyYG0DGJgP RYcuQ99lDNwKMrvAd4qc4 L5k501JFUfZHJaqX37Wj2 udDogMTBwdCBU mP7cngthj5hqkokpIzUlE PPjNVs3OFc2WHRmqRblMe OdEMX9FzO9GQV3wIBdcK2 ojOcpynxrqT9w Oyc+C18yfY5xUEF7GVL3u ywnTXWhrlMqNY72MT59A4 RyPjwvdGFibGU+PGRpdiB ybRduRK4lKcHp u0joj4TeEWoeR8RnTSPjL TkxIzx3YYTsJPF4kJB0tO 1cBLYwTRhlv1R4aBZ3Q4M derEmdj5nn3if PDMbZYfdX45pjGNcn4O1B QZlaGI3JGGteYeqLvOwmH 93Oyc+IOZahLzhm0JwTbr dg5nqx0bafOq7 ZuRuCQSkdfTsrBmpCVU2w 2FwDv86V82dPPsoNOVtPX McIWTfBTGxfLladv4xiL1 wIi8+PGNvbCB3 zXZ2yN3mIYVkGgQ2WNekC 131TkRfxAMzMptpf2yzs3 zibDd4MjHyLZLlnlIffEn bYOT2p3SgMg54 P86zFPqyTGZiVIMqGYVnK XKmaKlgpf2lwC9bBl3+PC 5hs9bixz09sM67fSW+PHR gVPP2gOwlMAug RKPbeB8pMBclPnF4EMMxY mWoiH30pTLyQKwcXv4ihQ ncsVabRA8aDVFhjzddy74 7YsDfv6vzFJOh jDAsTQfeAWY9H08rk5W7F HDoDYPyBBL1mKE0iK1epJ lnbjogbGVmdDsgdmVydGl gLDzvWEblB116 IHRvcDsnPlBhdGllbnQgT vKpVIh0L1BeAiw3PLZyqQ yeKV5liGWkAMjnBh6cvDf jgTpkYP3yEKFu pwtwp065ZnBxz6psHTGjz TUkYWjdNCQ6I25va1L2NT XjTZOnMFH3fBB5zQ4vwXj nbjogbGVmdDsg mhGiaMeuGSnbIGuiB955O HRvcDsnPkJpcnRoIERhdG U8QK24WL79rVGas8Q8mOS 3H6TbDAHixzes zjwagEV8VLPuHIRdfB32D p4fmLkpBk4nZTFkDOR1QF GjaMOdE4SmhG1eBrFoCAH fORNhB8XcuGNv TAqkP859NFftYaJ5MUWgx wSvM8JpQIQrhCvmDkG3k0 J8Hj0QS7Z9KD33SK98qSW cs8G4lIR4H0Ty PVFzqmxaexwgcUQ0WPXuE COvkD36Ou1bcYwsLu5aFJ WfHKX0SUNrxACzE7TxeT1 yOiAjMDAwMDAw I4BghAKuZRygN555PMbsN dT9QBTceyOsI0RwKAPpzE gmTtX6r4F3Be3FVOo3JX9 9XI37yRIfs9C5 mUI2M5JoGDOalhzzgrmob GG4UWJnUIPxnW38Nq4ffY grQx6jTVItLBF4YLBucJT pL2ZxrD1bXgNc CVHwXLNsA0VxaCLbEZlvP 606DAimDsE7PXGnnrRzQ3 EfQBPwdSvoWnE7c6W9Nl8 JZJHbRP88GMU7 tYB9JW18LP42D2LbAbkbq GFibGU+PHRhYmxlIHdpZH RoPScxMDAlJyBzdHlsZT0 fLi8kGBKlJYJh vQovrCQkKlHfm6nuKPLeG RbqZN0amWfhY1UfqUO6UG Gnn6o8Jx55Y93vB8HjfKV +OSKkoJA5jPL3 oM2nVkVwBqT1VBmhO028W sChlBOlMimtd1dbv8qvwB e2OjY5LXQglqDfsQyaFXV 7l9TtAa43V26p IHdpZHRoPSIxNSUiIHZhb Ozxcs1ekP9xMv1+PGNvbC L0jMJ3vY6nPtLxBiH6HGg uF433RbNxoAXf Zekdt4lrf2fngQt0ZsPcH ASrdcVecLljZYJ9w6TcCu 40K6NojNlld9LqWle2zw1 5aLCbu4R5vWM8 D6NbEDKmotzcjQLxtZkxY X0vWFKfiusmEGWjzJ2hMD EyO7v6NbUaGkM4ATstO4L ubsX6GJTwfNUp XNycGJI8N83eq6Q4TVVfK TPbZXI5jVC7lN0hmMcpgb ogbGVmdDsgdmVydGljYWw dETgmQ617JYXj zTeuQJLmzY8kWYMluJFkh WoqHP3qOQPlalnjRfWSSd MTWdTRXPFKB8rNChGAPL7 0NZ34pSXmb3Z4 yEG4F9EeBRJhjbillmpzg OA1WYYoBEYcwP42jOLpTD vxMa0db5J5d857FQDiEUT uoK87Ry3fnMba ZUMxlPBEtT0tqibyn7bat gvzFeMmGFNfEZy2TSo2CS JphHvkAiIdRHO3YnJ0OTR 7mXVzoG2paXjb ecqqrX5kScf+MDkvMDMvM He8OqaqbBQ+NYXqPCT3pQ hbLXucTLSyuU5wNURiG5p 6SzZpEoF1BUve H8NkDXWxnzgdTj32fP7rE eOwBzX2EHmzS6JugkK1AS UuwXVyBOpwZYU9B73un0G 6VODlQOTcPZV3 kSN1hM0lrCdlmpdlcOCua DsgdmVydGljYWwtYWxpZ2 79NLEpqZfiWqP8IXcnOKJ iPJ68OO93vEGv p8A0lPC7A2FoZGCzizbxx jkbpHO2SJRtJSAhnY18gA NoHNblFe4qu2G3w359UXP gWOXndY40Zf5l qGqcKSAhiFWNlZ2prefxn 4quvbgiUjLrTJWaCKm1WC t7XMBwiLedDvAaYCZ5JzC 0BAN2kBOjwS9r yGyjdohhyY5wHgv+TWFsZ TwvdGQ+HFGrOBZ1qXklKY uhMKNupL6kPQRdX2q4QkY iXwK0PDokH9Sc EXAmnmkbLe24xK1lSbBpY cO8GLxyA4UwujK4VIOllC VdGSdsIIF5R62bo4H7PMV iELGwAEX8rPP1 nL2tqKhkguuwdDUioWlmp oDtsRkuTLanFYjwS631TG PnhAnkUeQlBVUkVN5rcWl vdGQ+HK62lq50 I7NfVchaVqf4IVJtGJN7l BV2eN7mEAQcWWijz5V1cQ S3A8VkrnUkgy6oy6fvBVY gDOecD08ltNEx z7H3IFNumHT6XGUojUbxY hRhtQ09Ino+PGNvbGdyb3 NaGcwzn0faq5soaLc5AaZ wJSIgdmFsaWdu QZS7n8GlPj31Q68bFKozE HRoPSIzMCUiIHZhbGlnbj 4biW1aWd2+QQLgbKZ6mQL 6hT4kCpTuDoZ7 TNryF797YbAzcJRbIfqjy 7uzk3krdTx8NyNsXUSdyx UtbNsdVTJ5e6HgEq92I6P cnHdpq8DbAqo4 sl19xVVor5D5oUR1H8NhQ ROizvwkmBAamUawCT0aSZ HthhdjYKMuwC8rKKNaQ6g 3NyGjEwE3HRpu T4MecrI2JHTowTLnMPQnj WZYwC8bekztt7gfeytoHn YwGWBkDBt6APj8ZOGoyVs uAtTrGIV1EpE2 EAS1fPGfyP5vxYtxabaty G9wOyc+GXl5e5tgaSHxPF 5aoWA6ND05XK36kOTum1O 6mHQ0T6SzHRUf hakpvwymuSR0DHDwVFZay G16Iv8ldDgwKv6oQBCeMY X9QLOghTVqK0LdiK7yCwX iOMWjWTShJ1Uv iXZeDEdsA756KRdhFaB3O ZWvtzYmD3HoXWEhmAsdKe U9y7D1Hq2FHH28RB17UY4 3jRVoz0N2yRZ6 A1BuVYNctmynnrtptYW7V ZPbPZLozJ40Xt1cbZojKw 2aSRQdIDC4DLKnuGEsQ8Q luI4dCoTfJLDj IQHlH0NlcUMuDXslB618I OipYhW5XYCjtnOuE1LoNT WseAowIrN1j3D0Rn3LJy6 6FO73BC82yHRg m7N8jFZ5I6CsJEWyktrcn esixVC3LAYsHVGwwY11Zs 2hzKyeZi3lHCHjEVH5KTF bqUYrZ7XufA5t UaUqZZSeSLYiQ8SedVIaO PizO422LQviGjV2AKBmbb RwA1FrZSZqlVbiMoV6f5T 6Hq0JLQyxspd6 U3SvMlazcHU+PD87PGQpC I78qWKxbCUag7zbxXd8Xx BnXNYeAVO6tMmkZSmvg2V jOTYeG96fyKLk c2U6 (more content not included)... Normal [facility] Consent for Treatmenton 0 Consent for Treatment [id number] .[id number] Normal [facility] Discharge Instructionson Discharge Instructions [id number] 1.00CD:127 Normal [facility] ED Clinical Summaryon 2021 ED Clinical Summary [place] [id number] ED Clinical Summary Person Information Name: MANNIE JARQUIN Aminta/[facility] Age: 66 Years : 1955 Sex: Male Language: Lao PCP: ADRIANA MEJIA MD Marital Status: Phone: [phone] Visit Id: Visit Reason: Ear foreign body; [...] 01/06/2022 08:25:56 01/06/2022 08:25:56 01/06/2022 08:25:56 ADDRESS: [address] [place] [address] [phone] PHYS DOC NOTES: MEDICAL INFORMATION: Prescriptions Given: New Medications Printed Prescriptions ciprofloxacin-dexamet hasone otic (ciprofloxacin-dexame thasone 0.3%-0.1% Otic Susp) 4 Drops Right ear 2 times a day for 7 Days. Refills: 0. Medications to Continue with No Changes Other Medications acetaminophen-hydroco done (Bancroft 325 mg-5 mg oral tablet) 1 Tablets By Mouth every 4 hours as needed for pain. Refills: 0. PATIENT EDUCATION INFORMATION: Instructions: Otitis Externa; Ear Drops, Adult Follow up: With: Address: When: Elizabeth Veliz [address] [place] [address], [address] [place] [id number] Business (1) In 3 days 01/09/2022 With: Address: When: ADRIANA MEJIA [address] [place] [address] Business (1) In 3 days 01/09/2022 DIAGNOSIS: Otitis externa Normal [facility] ED Note-Physicianon 01-07-20 ED Note-Physician Basic Information Time Seen: Kirill Simon DO 01/06/2022 08:06 Chief Complaint pt had a beetle fly into his ear, states he was seen at [facility] and they flushed his ear with lidocaine but they did not remove it. pt here today because it hurts. beetle is in r ear. History of Present Illness 66-year-old male comes to the ED for evaluation of right ear pain and concern for foreign body. He states that beetle crawled to his ear last night. He was seen at [facility] where he states the squirted lidocaine [...] Veliz In 3 days 01/09/2022 EDT [address] [facility] [address], [address] [place] [address]- Business (1) Additional Instructions: ADRIANA MEJIA In 3 days 01/09/2022 EDT [address] [place] [address]- Business (1) Additional Instructions: Patient Education Otitis Externa Ear Drops, Adult Attestation Patient seen and evaluated by the physician ophthalmic assistant. Attending physician was present in the emergency department and supervised care. This visit was performed by both the physician and an APC. I performed all aspects of the MDM as documented. This report was transcribed using voice recognition software. Every effort was made to ensure accuracy, however, inadvertently computerized sewing machine repairer mistakes may be present. Appropriate healthcare PPE [...] 0.3%-0.1% Otic Susp, 4 drop(s), Ear-Right, BID [place] 325 mg-5 mg oral tablet, 1 tab(s), Oral, q4hr, PRN Allergies No Known Medication Allergies Social History Alcohol Substance Abuse Tobacco Lab Results No qualifying data available. Diagnostic Results No qualifying data available. Normal [facility] Comment on above: Result Comment: Elec [...] 06/11/2002 Document Revised: 05/30/2018 Document Reviewed: 06/20/2017 [employer] Patient Education ? 2020 [employer] Infectious Disease Otitis Externa Otitis externa [...] even if your condition improves. ? Take hycp-psh-lmdlvaq and prescription medicines only as told by your health care provider. ? Avoid getting water in your ears as told by your health care provider. This may include avoid (more content not included)... Normal [facility] ED Patient Summaryon 022 ED Patient Summary [address] [address] Patient Discharge Instructions Person Information Name: MANNIE JARQUIN Age: 66 Years Arrival Date: 01/06/2022 07:57:27 Discharge Diagnosis: Otitis externa Primary Care Physician: ADRIANA MEJIA MD Provider Information Primary Provider: Kirill Simon DO Advanced Dock Operator:Ramon Gauthier PA-C The exam and treatment you received in the Emergency Department were for an urgent problem and are not intended as complete care. It is important that you follow up with a doctor, nurse practitioner, or physician?s ophthalmic assistant for ongoing care. If your symptoms [...] Instructions: With: Address: When: Elizabeth Veliz [address] [facility] [address], [address] [place] [phone] Business (1) In 3 days 01/09/2022 With: Address: When: ADRIANA MEJIA [address] [place], [place] [id number] Business (1) In 3 days 01/09/2022 In the event that this physician does not participate in your insurance network, please consult with your insurance company to find a nearby participating provider. Patient Education Materials: Otitis Externa; Ear Drops, Adult A MESSAGE TO ALL PATIENTS REGARDING OPIOIDS PRESCRIPTION OPIOIDS: WHAT YOU NEED TO KNOW Prescription opioids can be used to help relieve mslcqeof-gb-adhkno pain and are often prescribed following a [...] you may (more content not included)... Normal [facility] Auto Diffon 01-03-2022 Basophils/100 WBC (Bld) 0.5 % Normal 0.0-2.0 [facility] Comment on above: Order Comment: Order Added by Discern Expert. Performed By: #### 1 [id number], 5821343, 3652727, 0805777, [id number] ####[facility] [address] [place] [address] Basophils/Leukocytes Auto (Bld) [Pure # fraction] 0.0 E9/L Normal 0.0-0.2 [facility] Comment on above: Order Comment: Order Added by Edgardo Expert. Performed By: #### 1 [id number], 5356537, 0028613, 1469244, [id number] ####[place] [address] [place] [address] Eosinophils/100 WBC (Bld) 3.1 % Normal 0.0-8.0 [facility] Comment on above: Order Comment: Order Added by Discern Expert. Performed By: #### 1 [id number], 7307243, 3062461, 7529492, [id number] ####[place] [address] [place] [address] Eosinophils/Leukocytes Auto (Bld) [Pure # fraction] 0.2 E9/L Normal 0.0-0.5 [facility] Comment on above: Order Comment: Order Added by Discern Expert. Performed By: #### 1 8101095, 2513000, 2248049, 7765101, [id number] ####[facility] [address] [place] [address] Lymphocytes/100 WBC (Bld) 19.8 % Normal 14.0-50.0 [facility] Comment on above: Order Comment: Order Added by Discern Expert. Performed By: #### 1 6020529, 8712994, 6302336, 7437993, 84245131 ####[place] [address] [place] [address] Lymphocytes/Leukocytes Auto (Bld) [Pure # fraction] 1.2 E9/L Normal 1.0-4.0 [facility] Comment on above: Order Comment: Order Added by Discern Expert. Performed By: #### 1 8304229, 6781942, 7161560, 2623469, [id number] ####[place] [address] [place] [address] Monocytes/100 WBC (Bld) 13.6 % Normal 4.0-14.0 [facility] Comment on above: Order Comment: Order Added by Discern Expert. Performed By: #### 1 3279702, 4424070, 5552923, 2560579, 86594778 ####[place] [address] [place] [address] Monocytes/Leukocytes Auto (Bld) [Pure # fraction] 0.8 E9/L Normal 0.2-1.0 [facility] Comment on above: Order Comment: Order Added by Discern Expert. Performed By: #### 1 1116381, 1151763, 6976695, 7293365, 84811273 ####[place] [address] [place] [address] Neutrophils/100 WBC (Bld) 63.0 % Normal 36.0-75.0 [facility] Comment on above: Order Comment: Order Added by Discern Expert. Performed By: #### 1 1266416, 2044524, 3648248, 4660427, 90626857 ####[place] [address] [place] [address] Neutrophils/Leukocytes Auto (Bld) [Pure # fraction] 3.8 E9/L Normal 2.0-7.5 [facility] Comment on above: Order Comment: Order Added by Discern Expert. Performed By: #### 1 9090327, 2305583, 9158574, 8385237, 83545100 ####[facility] [address] [place] [address] BMPon 01-03-2022 Anion gap [Moles/Vol] 11 mmol/L Normal 6-16 [facility] Comment on above: Performed By: #### 1 6350119, 2650026, 4742768, 2097719, 89090500 ####[facility] [address] [place] [address] Calcium [Mass/Vol] 8.9 mg/dL Normal 8.9-11.1 [facility] Comment on above: Performed By: #### 1 9212507, 9018739, 7689890, 0380621, 04424924 ####[facility] [address] [place] [address] Chloride [Moles/Vol] 104 mmol/L Normal 101-111 [facility] Comment on above: Performed By: #### 1 2646122, 6969430, 7830809, 0180160, 36682083 ####[facility] [address] [place] [address] CO2 [Moles/Vol] 28 mmol/L Normal 21-31 [facility] Comment on above: Performed By: #### 1 9091897, 2496591, 6791624, 9975988, 78151369 ####[facility] [address] [place] [address] Creatinine [Mass/Vol] 1.3 mg/dL Normal 0.5-1.3 [facility] Comment on above: Performed By: #### 1 6535169, 1093489, 0608247, 7078906, 09939728 ####[facility] [address] [place] [address] Glucose [Mass/Vol] 102 mg/dL Normal 55-199 [facility] Comment on above: Result Comment: If t his glucose result represents a fasting glucose, interpretation should refer to the following reference range: 55-99 mg/dL Performed By: #### 1 [id number], 9511417, 6963988, 2753541, 04881407 ####[facility] [address] [place] [address] Potassium [Moles/Vol] 4.6 mmol/L Normal 3.5-5.3 [facility] Comment on above: Performed By: #### 1 9282095, 0221455, 1660820, 1154621, 12729065 ####[facility] [address] [place] [address] Sodium [Moles/Vol] 138 mmol/L Normal 135-145 [facility] Comment on above: Performed By: #### 1 7723292, 6796236, 8940940, 1136000, 25461265 ####[facility] [address] [place] [address] Urea nitrogen [Mass/Vol] 22 mg/dL High 5-21 [facility] Comment on above: Performed By: #### 1 8883228, 3158028, 0168666, 3334989, 97387775 ####[facility] [address] [place] [address] Urea nitrogen/Creatinine [Mass ratio] 17 No Units Normal 10-20 [facility] Comment on above: Performed By: #### 1 3722226, 1139712, 1856801, 1219254, 38873546 ####[facility] [address] [place] [address] CBC w/ Auto Diffon 2 Erythrocyte distribution width (RBC) [Ratio] 13.7 % Normal 10.9-14.2 [facility] Comment on above: Performed By: #### 1 9932392, 6226067, 4687325, 7629483, 19041582 ####[facility] [address] [place] [address] Hematocrit (Bld) [Volume fraction] 42.1 % Normal 37.7-49.0 [facility] Comment on above: Performed By: #### 1 4638415, 4624436, 9582897, 1505462, 67465226 ####[facility] [address] [place] [address] Hemoglobin (Bld) [Mass/Vol] 14.3 g/dL Normal 13.5-17.5 [facility] Comment on above: Performed By: #### 1 1118679, 4296631, 1311458, 1856191, 35409545 ####[address] [place] [address] MCH (RBC) [Entitic mass] 30.4 pg Normal 27.0-34.0 [facility] Comment on above: Performed By: #### 1 [id number], [id number], [id number], [id number], [id number] ####[address] [address] MCHC (RBC) [Mass/Vol] 33.9 g/dL Normal 31.4-36.0 [facility] Comment on above: Performed By: #### 1 [id number], 3841596, 8310754, 2753962, [id number] ####[address] [address] MCV (RBC) [Entitic vol] 89.7 fL Normal 80.0-100.0 [facility] Comment on above: Performed By: #### 1 [id number], 8194585, 3144740, 2473959, [id number] ####[address] [place] [address] Platelet mean volume (Bld) [Entitic vol] 10.5 fL Normal 6.4-10.8 [facility] Comment on above: Performed By: #### 1 [id number], 4735249, 6891435, 3437832, [id number] ####[address] [address] Platelets (Bld) [#/Vol] 240.0 E9/L Normal 150.0-500.0 [facility] Comment on above: Performed By: #### 1 [id number], 2567367, 7582034, 9710257, [id number] ####[facility] [address] [place] [address] RBC (Bld) [#/Vol] 4.7 E12/L Normal 4.3-5.9 [facility] Comment on above: Performed By: #### 1 [id number], 9917315, 1068515, 7422189, [id number] ####[facility] [address] [place] [address] WBC corrected for nucl RBC Auto (Bld) [#/Vol] 6.0 E9/L Normal 4.0-11.0 [facility] Comment on above: Performed By: #### 1 [id number], 0638060, 3004081, 4212767, [id number] ####[facility] [address] [place] [address] CHEMISTRYOrdered By: SYSTEM SYSTEM on 01-03-2022 Anion gap [Moles/Vol] 11 mmol/L Normal 6 - 16 mEq/L F C Remisol Calcium [Mass/Vol] 8.9 mg/dL Normal 8.9 - 11. 1 mg/dL FT Remisol Chloride [Moles/Vol] 104 mmol/L Normal 101 - 1 11 mmol/L FT Remisol CO2 [Moles/Vol] 28 mmol/L Normal 21 - 31 mmol/L FT Remisol Creatinine [Mass/Vol] 1.3 mg/dL Normal 0.5 - 1.3 mg/dL FT Remisol GFR/1.73 sq M.predicted among blacks MDRD (S/P/Bld) [Vol rate/Area] mL/min/1.73 m2 Normal >=59mL/min/1. 73 m2 [facility] [place] S GFR/1.73 sq M.predicted among non-blacks MDRD (S/P/Bld) [Vol rate/Area] 55 mL/min/1.73 m2 Low >=59mL/min/1. 73 m2 [facility] [place] S Glucose [Mass/Vol] 102 mg/dL Normal [...] for Treatmenton Consent for Treatment [id number]#1 .00CD:127 Normal [facility] HEMATOLOGYOrdered By: SYSTEM SYSTEM on 01-03-2022 [...] 30.4 pg Normal 27.0 - 34.0 pg FT HemeAutoSS MCHC (RBC) [Mass/Vol] 33.9 g/dL Normal [...] specific Ag [Mass/Vol] 2.0 ng/mL Normal 0.1-3.5 [facility] Comment on above: Result Comment: The concentration of PSA determined by different manufacturers can vary due to differences in assay methods and reagent specificity. Values obtained from different assay methods cannot be used interchangeably. The methodology used for this result was chemiluminescence using [employer] Access Hybritech PSA reagent. Performed By: #### 1 [id number], 6469493, 5387853, 8371933, [id number] ####[facility] [address] [place] [address] Physician Orderon 01-03-2022 Physician Order [id number]# 1.00CD:127 Normal [facility] eGFRon 01-03-2022 GFR/1.73 sq M.predicted among blacks MDRD (S/P/Bld) [Vol rate/Area] mL/min/{1.73_m2} Normal >=59 [facility] Comment on above: Order Comment: Order added by Discern Expert. Result Comment: eGFR is race adjusted. AA=. Performed By: #### 1 [id number], 7758444, 1138242, 3760995, [id number] ####[facility] [address] [place] [address] GFR/1.73 sq M.predicted among non-blacks MDRD (S/P/Bld) [Vol rate/Area] 55 mL/min/1.73 m2 Low >=59 [facility] Comment on above: Order Comment: Order added by Discern Expert. Result Comment: Human Factors Engineer asia kidney disease could be indicated at eGFR's of less than 60 mL/min/1.73m2. Kidney failure is indicated at less than 15 mL/min/1.73m2. Performed By: #### 1 [id number], 5329947, 2392751, 2080044, [id number] ####[facility] [address] [place] [address] Coding Summary.on 10-17-2021 Coding Summary. CD:[id number] G h0bWw+PGhlYWQ+KS0ZPJE vE99bxHOqxD9JP9gIGX9K THJLIHMBZP8IIN5xzDX0Q RcpG1FynhCt TdmaqMPkUN07XRa0LUK5g OruPRxpyN4orIEzJ3q6Vh BnRH13dX69HDyyFYQyYcW 3LjZpbjsgbWFy G9vaEmJwpQEePbu+PHRhY mxlIHdpZHRoPScxMDAlJy ManOcyVZ6hRy7uZJDdKZK vbGxhcHNlOiBj l8bvOFKuMSwvYO5hcImfT 5BtqYE5OLZdz5m6Dz77bS I+VQVnOVM5aRnkNBcwc79 5NiMgb2adLBW1 rFJfRXetQTG1G57vv7R3H XVdZADzIFT6bTV0fN4pkQ gimzzvA0OcwRVmLlW6TPI 8gKDzuO1mjKfm zszwtS1kDvh+H62YNZ0JH OFMFD2XRaq7Z5CfCqcfeA I+YG61FRLaDY22rOEgrDI tv9ujrRy3AiSe PAMsMWX8rOapKDyfj4LpL EEiE61oaOEce3B8BCNcmJ duuDQqHcKpcPG6wD8xYEv cttgzs3qjhkxm Dqwei5nzyv90qW01Y12pI HeuCMMjQFZ4KCOtCHWugZ svxo8tbO2jSe0+ONtpx9k bs9mgfHk9JhLb SURkwgIvzEusCIE1t9DmB b12Y9FixLcne1EsDfh2rd 12zQVzz6R1qPP7PTgfDZQ arA9mHHdgWjT2 VAOwKtDqkK68jSAlYVnfT a5hzLhfsZfaNC2uZVWwvf bzDBLyeL6iJYVozLChvEp jFU1iCUMiuzzl f513UuGgWSD7TGAxvMYhV 4UqtK8uOrDlPYQdFJAwV1 JsgBWzJAaaP553VSrhXbN 5RNIvdoNrJ1Lz UVVbcVyoVsI9i8J6Le9Ox 6VgclpsTPB5YJkfSWV0Dv U8YoUdMnR1O8RaCli2SVD qsYzxAE7sQ6To GXLgcxjgkvjtxNI8MNFjQ IKwrX80uCRbRFhkQa2aq0 Y6o117YNMxOMHosT87Bm1 udDogMTBwdCBU tY3zrzlqa6ozeaujOyRgH KRhXKp8IYo7TPTwxBtuIv ZkLSC6HhK1TMK9gPZufI9 hsRrdfdpujT0o Oyc+P34bmR9gVRK5FQP2d xjcRJMvlhAbJK04LX11R7 RyPjwvdGFibGU+PGRpdiB buIefAB6mHcRt n7wzz0WyAWflE5UcFZQmG ZujJjc5JWAhHGK0dES0qL 0mDZQsMUfzh1T1lNA3I6O icfMate6ti4sy EMEwAXhnU28aaZFvz9T9Q UEvhBH0WHDpuQeuOuQjaE 93Oyc+ZDEssHnhl9QyDhb rd3boy4ahySu0 FqUpRZRktzDvkLhcIZS0q 7ViEy26F52cAUpfOGBlWW WeNBQoBYQblJqisd0ltP5 wIi8+PGNvbCB3 tPJ2fA5gMGZfXfQ6RZamN 592HqNzcNMaKhspo1tai8 dnoUj5GeTtSLLyexGieYl dNCJ5z8VfDk12 U99gPQzjSYBmACKsSPXaP DKiuGdnga3ooN0fGp4+PC 2es6bupp08yW61iKH+PHR qQWC0qAwaSLkb RLBqdA0jXTswMtN7TXSvI lZrlS40iKHxLBlfRx8uuK igfNkqWW4fVTJovqhmb49 6AiXtv0uyDZPb uRUaZYpwKXM7M17kq9M4E TNaBSGrSKD9kBJ1rT8mvB lnbjogbGVmdDsgdmVydGl cTNikUHfzA340 IHRvcDsnPlBhdGllbnQgT vSmJTg0H6AxNmd1QPYxpT fxGL6yrWNsAAsaPk5feJr znRwqSY2sUDLt ihmfl764LlRay4bgFHCem VVfZFynVUS6D91mk4E3IJ RrBZQkLNQ5iLU3bZ9sfBk nbjogbGVmdDsg cbJxnMpcBCxtCByxX831A HRvcDsnPkJpcnRoIERhdG U8LN55KN63lVLhk3L8uMY 0U5RfWMMkfzwc ldplhTA4IWHiNHAnxJ30Q t0lgKxfMq4dXPAoHZK5WA RtiTGgR9RimT4vQnNuJBQ hQQYtC6EgkTEx OAkyH619YOfjTfW2PJGyv rUpM8NsWDWzxIwyVzF9l2 E4Rb0MM2M4UI42RA48zTP zb9R4tDP1V3Yx BJAuadsllycmbWJ0JUNbZ DZmrA39Tq2fjOfpLf9uPE SdYQY3QKKypZOaZ5KwfI7 yOiAjMDAwMDAw T1JgdOWtOEgtK155VKquO dD3AHKjzrNsS9SrSDBsnZ wgSiE2c0V9Oi5JOYo8TN8 3EN50eUJrn8Z0 wVA2B5IsHULhhegppdmgi YD5CKHtUWEboL76Tb3rbX dfCw7tZLSeGWJ4QADbvNR mP2IloO3jFgQw JTUkHHFpJ3KgnYJmHAbnE 334IBaiIrO1USDjiuCvS4 UqZKXnkDkwGgX7q7F5Nl2 UIBJjNZ98DDU1 jZU0XX14KY02B3AaEexmc GFibGU+PHRhYmxlIHdpZH RoPScxMDAlJyBzdHlsZT0 hMd7gZWTsGKQq pOacpTJpNzWkd8vlCJJiJ UswYR6pjHexN4SbvTI7RI Pwa2y0Iy66X14nW7WjaJR +WFPkfHX2oTM0 hB6sBaFhFqM1SAikT061L mXtpPMmGrbyj3koe6rqvL t4FqS3ZTGohkZjiIgpURI 4o6HjZf25W25q IHdpZHRoPSIxNSUiIHZhb Rpzmp1unH4wBv8+PGNvbC H1hVH0jG7fKwFpKfR2FJf nK915WfHmyQKt Zqneg3sbg9qxvJz2HvJgG VZwvwGkhNuiTKH7p2NjHl 40G6WddVcev9KtKsk5ih9 2jLNwv0S3sPC9 Y9KkIKPgeelntYEfqPgeK B5cZEJkhngwVYXqvM8tRU BkW6k0BjNmWoU6OLisR4I dkbJ9BWUesDXj CUquYBV5L38ky0M0HCMjJ HUyLTC7oSK1qI8xqGshoa ogbGVmdDsgdmVydGljYWw tRFwiV417CKYe dWuvCPEfmU9mDMVyiVYuj MsoWD5xJTZplsneVoZQId CPYfZDQFFOB7lXHwOBDZ4 8AO03lZTww2L0 nGA7E3CjYJDcnzdapaacx GH9TBPmFKCzmM55lVXwJQ vmGw2ku0H7i233XXYqSFJ gmX14Iv1mwWeb VJLydSAXuM5pyrotl3hvo abgVmByGHWdFIx0WUu4NL GxgDfgYgVpMRU4FqZ5SVK 5aJAelQ6waQxa guddtG4sZjc+MDkvMDMvM Ay7WhwfyBH+HEYuHFV9lD dvTLlbCBYjzI6nNCOfJ2g 3LlUaFuF3XHsv U0GkBMVewhynVc77wE2xX oDkQoA5PVpsD3UkncY9KO XfuVNkBNwnNIW9C97ox4O 3XLZjEQXaKCQ3 bWN9rW7jgIcdaletiQArq DsgdmVydGljYWwtYWxpZ2 06OOJavItdEyJ9KAsmLUT dIE72IR84oXMg q9G7lHN1S2XaSMNhynbje ebptSN9VTBrIVZzcD47jA QsCVepQp6yr9H3o590PEJ jTRCpmQ56Jj6u hLlhSSYqqOCJsT7tewupd 7tvugguAwLtPPQcYKn9IM y2CEJnoCxnRfSvGDQ4SmL 2LTK0cDChaQ6l bXxwscqymN1kDww+TWFsZ TwvdGQ+KTTuLGA5eUjtTC lhTIKziG0mBEElN3x5JaB lAkE1AJqmE0Dk WVFbrnieCe64lG0eHjMiV vP5TWmbE1TyycT5PYKezR KaCFicFTZ7J11be9X3BHH zQCOrRMS3rMW8 kI9nxSopqqsqeGUwlYnrf tCeoKlrPDsrDMvlK669QC GnuKcnDi69oMRarSlqaoJ 4V5FgZyxknQM+ JK50WGLbYF56bLKrxUZzw 8volPq6YjHbJVCiGZQ1dI qiPPrjt6AvRVCxK89liLQ qh0C4YUIctKel nGYvNdGtoFG5aH6xLIqwm ddxx8evtnriEzfeh2jixk 13zZ02P26iMYocTSYqHJE zMCUiIHZhbGln oe5ryA3sVi7+IXDixWR2f XU0yO4cBmXaFjE7DFqwI5 21XzZpeAVeUfmoc7kyl0f bsUi4BzMnLMOp bjBhcXqlNAH3k8FfUl90E 29sIHdpZHRoPSIyMCUiIH EygKlsgq3zjM8iNv3+PC9 ha2gjdd01hT81 dHI+SENqUIG8pSvbIOvvJ JHmsB4oWXwsZsC5HQJxPr LlqX87wWKwYQffEt9tcHx pkDdsXW3jDGSt fxpaz061TeZzz0jkCTSwq ZGcJWhqEGA0Q90xh1B1BP AwMTBpAKP1yRD3vO4ulYp nbjogbGVmdDsg urCxgDgrVOkzSMxyK781P ZEtzMgpZtOcqFWaD2kfjg WKYC2gSiqkmSQ+PHRkIHN 0eWxlPSdwYWRk sF9oZRKrM8c3HeAzLpG0M BveD9LqgwE8QZFpbYLhMW ErkYPKaM9xsfmhs2mjtae gIzAwMDAwMDt0 VHf6FALypIskSiQaTNB9T hU2LCH5dFNrbR4fhFcahd prnS6tUeq+RklOOjwvdGQ +UBCnQQP1rTxi ESvnMQTjfK6pQAQtQ7e0X cZfMmS7VYyhI8TkyaP2MB AiwQNfKMHzyYTIdX7hfck hc0emrqdyCxMk FKXxJLx8PNt1PFPncNcgB dQvODG7UzH7XOY4mIMxaC 4toWebpricpI2wWcy+TVJ OOjwvdGQ+PHRk MOF6jZwzBTkuKVBsjV9fY TXvM4e2ZtGkHjW9QCrhK1 XmaeQ0RYEzqLKuDOZwfZJ NdY3khxyqh3rk pgzuXiAlYDLuJRf7SEl7G GZikFbpHwQfYKE9KdS4HB D0dXKanQ1ahMgdcunsmZ3 wOyc+YKF3KMY9 AF96QW47S0LhRyetyYQzq +PHRhYmxlIHdpZHRoPS nqCKNyJmLcdLexVN4dCv6 yZGVyLWNvbGxh cHNl (more content not included)... Normal [facility] Consent for Treatmenton 09-29 Consent for Treatment [id number]#1 .00CD:127 Normal [facility] Patient History Officeon Patient History Office [id number]# 1.00CD:127 Normal [facility] Sleep Office/Clinic Noteon 0 10-09-2021 Sleep [...] When Contact Information Kirk MOREAU, Beth Ramirez, LUZ MARIA EM Within 1 year [address] [facility] [place] [address]- Additional Instructions: Problem List/Past Medical History Ongoing Smoker Historical No qualifying data Procedure/Surgical History broke leg. Medications [place] 325 mg-5 mg oral tablet, 1 tab(s), Oral, q4hr, PRN Allergies No Known Medication Allergies Social History Alcohol Substance Abuse Tobacco Immunizations Vaccine Date Status Comments SARS-CoV-2 (COVID-19) mRNA BNT-162b2 vax 09/30/2020 Given Prophylaxis SARS-CoV-2 (COVID-19) mRNA BNT-162b2 vax 09/09/2020 Given Prophylaxis diphtheria/pertussis, acel/tetanus adult 12/05/2019 Given Normal [facility] Comment on above: Result Comment: Elec tronically Signed By: Kirk MOREAU, Beth Ramirez\.br\Date and Time Signed: 10/09/21 11:41 EDT Sleep Studieson 04-27-2021 Sleep Studies [id number]# 1.00CD:127 [facility] Coding Summary.on 04-25-2021 Coding Summary. CD:[id number] G h0bWw+PGhlYWQ+FW4UMYQ sP56mfCTfyH4PF8oHML6F LSCQAKKKKD2XID3sjOM6B RthZ6OhvsDh RipweNSpEK06WWy8HSU1h VbhEKwwqR8tlNXkS1r1Tr GhHU42qM91TOfuKUEaAsY 3LjZpbjsgbWFy F0otThLrcDKeUpz+PHRhY mxlIHdpZHRoPScxMDAlJy GdrUryTN5lEm2xMHTvYGN vbGxhcHNlOiBj o4tkNVVnDNfxHO6alSorW 4MepHP9OQWpr3r0Ss09cG I+MYUbHNT3sTwgGAyfa71 2YoMag9qtAOY7 jNQwRUawYVU7N75ti5F8W RWuWGLeZHF5eFP8jU3crL kwdkjuC4QgqBBsCnE7XNM 9gIMhpM5foEuu iccnfL1gXdg+S68YCH5TP UMYHA7ZIhn4B5MxWdyoyH I+BF72YQSgUG21fXJmsOC gx8dxfPs7FaRs CZPjJPX9zTlxYJrff8AwH SEsM07vdHIsu0W9LCFscN euaHRcWxQpbKU7uH3eYWm fhdmrg2rvfmdt Fgyfo5oqfe34jX03P89gC PfeZOKeUBR3GCCvYNBbbP pwok5qiY6cJm6+NRbtq0u uf2rzcRw7MzIw HDRifmIorSpyHLT7o8SdF m79Y5OinUwpw9ZzPag0vd 74kTMuz9P5kIU2EZhxWAA rtN9lMCoyZvV3 LAMvAoBemK30uKQnDBkxQ z3nzAkvwRttUV1wGNNtvg bhAGXcfQ4sQFFdkUHfnGu bIV7rKWEmcshl e702NvQqTGI1BAFdiWDeE 5BhyL1cOyAkKYDpBJMxR9 XldZZyTOjrX432KPulYcM 3JDDfzdOxX4Aj PVEseUraKzW7q8A4Jq0Rv 4XotsphMZM7QQwrKPGdFj V6AnVaHbW1L6YjYto0TBW roKeiBX3aI6Ry IBQyyovatrpnpXR3UKByC BJkhP96wLWyRDveWc2hn9 Y2p023KCGzEHEmqN08Ns9 udDogMTBwdCBU hQ8gmcffu6yojwoiTjLaM HNhWJp2UPb7LYCkcNbbBm SzODC1ZvM5NLC8lRYiwZ0 foBdmtzpsqZ4s Oyc+T37buV7bDOE8TQE5e rmbGVIjqiAcEF42AE24W5 RyPjwvdGFibGU+PGRpdiB oqDvvJK1aIySc p4nut4XwPTbuB0YlFKNkM ChpEcq0ANPgOVO7sHN5pX 2tKWTxFPbsi5J2yTS3Y0B jpuJmtb6sz8zo OMUuABuiL84arVVsm5B4K CSyqXP6SQCniSiaSxKylQ 93Oyc+XSClkNdai9WjUzo kd6hkf8buoZk9 UeYnQOGwboMbuKcaYDJ1u 0XuSz12I76rOUpaRJHoFS SeXRRnTOCeqWexnn6mkH5 wIi8+PGNvbCB3 hNF5lL2gSTWtQwQ9WMcqE 042GuWlaDCjDazdf4lmt7 tlmHu7XfYzPPGfuiCfiJy nECE6l0XqKa99 Q63eFHdkVAQlWKBrYYJjH DBmxYcsiw8ekO9wNo9+PC 2da9ymbn71xV62xLF+PHR uIYI2vQciELhx GLJghD8iINcqWgJ7ORLgB vIkiQ75fTPdNDhsPo4krG zauIhbVG9gPBTqyhrpd57 5WtAdo6tnFLEq lQJaJPhaJDG1I03zx9J7M DHmIQFvGFU2uHT6bQ2anZ lnbjogbGVmdDsgdmVydGl ySTkrKXpnT001 IHRvcDsnPlBhdGllbnQgT zMnOPm6X2UzByz5KIWfjY fcEE4ozHShTFksSj9oxYf iuWsuZX6kEXHs smemf910ImUgo7xnAYUba CBaUYbvBBX5X32ik7Q1FE HyLAZdQEP5uFZ4aK2euBd nbjogbGVmdDsg bbVjeOjbRPwoDUxnB091M HRvcDsnPkJpcnRoIERhdG U8YU38JJ46wWKaq3R6mYR 6I7MiLVDzuegl klpnnQM6KGVvEPUeaJ77I y1vnHbwPb1iXSCnIMA1TK KhiQBbI3DdbS4mPyFtQZV sUGSeV3VkwHYv VPemM067JBdqBeU7RXVfm eBmE0VlHGQeyAheWuM6a3 C6Zj0NS5Q8YC46BO13oUZ we7G7qLA3R4Tx REGchznkzobekHZ7LQOgZ KPxkT97Xf0xxIibIk6pFG JaNVF2SBYwzXEdN3MfbT4 yOiAjMDAwMDAw Q2McoXEdUSidE296SPyjE oK2SJKspoTxI9JiDDDucL wbUfE3t8A1Ji7QNLg9UQ9 8BY02nJTfm8P6 qLP0O4FeVDUmgukqfmqmm UN6WSWeJFWitO98Lb3nnK omAg1hTQIqQJH2WWEzjXA lG2WuuM4wYaBm ZQKiUDZsQ4JtqNWgIIqoK 592MYkdErH5BGPkjyNhG9 NsDBBhnAmcYcP2d1V5Nq6 MGITkUO04XHX5 cFF3UH10RL43B4ZcCuwtw GFibGU+PHRhYmxlIHdpZH RoPScxMDAlJyBzdHlsZT0 zQp2bTONtUXKt sFoveCTzQbAoa0axVFPxE ZdnGQ7xoTadD0IcqLB3KM Wmx5q7Ug22B57kA8AlfSH +EYTinKF3uON8 kS3jGtCkMcA6XIgzA493X zRlxNHuJmmet9ifg2ngbK t4MhX3BZRcfyMfwZqsKKF 9p1QzDo62U36h IHdpZHRoPSIxNSUiIHZhb Rfxox9euY9oLs2+PGNvbC B7nOV2dI3eMpHwYqE9YDd pW117TeEptLPk Osnpf3xmc6wruKc5NxMnR WRjqlPcvRmxJFI9n4EgCm 34J4VbsTbgn6JtPfb0py2 7aTVth3N4tJS0 A8WaGRMrftjnfMXhpQznC H6uCVKorctjJNGdeP5xBR ZfO5i4YlGlRsF1HHkkZ9N benT4UYEliUYb UZvaSFM8P79bb0Y3YULhG XBfRHV3zAJ5jH5cyHutxs ogbGVmdDsgdmVydGljYWw fQRenS485ELDu kAvoNBTkzJ9rUXZotKKzd OfeSP6sICKwdwfjOwJKHn PNPkTPAQPCZ0pKLiOGXU2 6VF73iECyw4P7 yFY6H7YxIJVqvapgwysxh FM2OUJxTUIqqD56hROgIS zuYj2zf9J2i360SGRfKKY ciX59Dp9ueVpg XFIwtISWdE0djglha1wjs qhuHkOcNRJcTKf9FNf0PI PafAodWxHnNFH5YlB5GRW 1zIDffF8tgWkt nhbrzB2lCjm+MDkvMDMvM Vo9IrwjlRI+CPAcTLF3yJ eqWNvdNLEzlM3mRHQfB8x 1MnGiPpK2VGra R0ShIFGkndqpVx34kW7jB oUiWvS0UYkuD2NtjmQ4QC PlvLJoIMmcCLQ0M39yg4Q 7NQHtFUVjDJB2 sPX4lH8wwTsbcltgnMTaa DsgdmVydGljYWwtYWxpZ2 57IJIutLujWeN2IPjiGDP kBY44AJ66mXEs d3L5kOE6S3XfLJVyelodw ukuzGA4FAFmRZTpfW61gX BrOLsfNe5az0X7e009DSE xVIZrsI68Gn4y yCiqRSBkoQNKvV4maghyi 5gkvrvsYrJiTSWqXCs9SC w2ZBJukOwlWuNjLCM2NlI 0HIU3dCIiiF9c eMlppmtjbE0wYbn+TWFsZ TwvdGQ+ETDnMUY2fQfvPZ znIHTqmW4xKZXcG8m6PiJ hAuE9BChkX0Ah KIXmmoqxUz71cR4gIlLqO bU9PVcqJ3LuyiN2LFNplI FzPJizKHT7B17eu9M4KAW sTKQdAKI4pAA7 iV2zcQxrbflorPLdoGjol nSgvSxlYSxxBGnlP183TP QkyBncWt36dEAiiHuyuyR 2M4AhNccqiLV+ OF22QWKaFA35zKXlrJUja 2yohKg9OxSoMQSdDUX6eT ehLXcqd4BgNLNdB31qjZT ha8J6SZYwgArc cTPxYwUbnYI6yD0gGPypa fijv8kvpwutXbocs8uqyz 15xU19W44yZRodZEZiKYL zMCUiIHZhbGln xp6rxF1dAy6+IPQsmBR6m TI9jE4xHtMwQcO9YDqzJ0 05WhFlpXVxUnudy5qlq1z kbDs2EcJoPLKe yeXwqOqwASE2h3GvWw94Z 29sIHdpZHRoPSIyMCUiIH PryNocoz7ilS7tNi0+PC9 ti3lock09sW68 dHI+OPZkMET4mVerPKucG YXutL1fBVriQpV0SMLtBx LeaB40cBGaZThtIu0ieVg szEyiEN6cPHAl sxkgt473MkEkt2lpDNBbs PRxOXdrBEB1L03rf3U0LW YxDIPmBFF9kZU6mQ8ggFe nbjogbGVmdDsg twHymVamGYxeKIifR347P HWcwLjbYcZjfLMuZ4oefc PLFC0oEyjcmEU+PHRkIHN 0eWxlPSdwYWRk vT7nERScU2c2ItAxRlA8A DyrN9GxmvR6AUVkcZStEX GdnKACeD2cvoxmt5ywudy gIzAwMDAwMDt0 GZh4MBKciPbfWnIyKKU6C vS1TZN2pWGbhY4zwFlabg ibiP0jZba+RklOOjwvdGQ +MEHqJFV6iTwr BWyxEXYkrC3bEKGbX2i7T qGeYxN4VYbwU6MhfcG9OA QfqDMaJXYwyLYKeY0hldz ec5yfcccwLlGq CWPqMBq4VNf7UCZvlJuvB kGfZJC0RfU2FTV4oRGroX 9irOacjnkfpB7dCeb+TVJ OOjwvdGQ+PHRk VXD5lHgsGNgvXFPscW5lT BMdF2z1XdVyMyC2GLjeO3 NcvbU8AOZqiOKeMZPjcSI SiY9zvyoax1xz hnkxMkNbXTKyJSo1QGv7Y CTeaOejMkRrTSR2BxN7CA P2rITtdD2zqSeicsxcwM8 wOyc+TJO4ZFN2 HB80TJ68J0UrFxkguIQqx +PHRhYmxlIHdpZHRoPS zcVFWlPxCtaTdyUI6hYg6 yZGVyLWNvbGxh cHNl (more content not included)... [facility] Prescriptions/Work Noteson 1 Prescriptions/Work Notes [id number]# 1.00CD:127 [facility] Consenton 04-21-2021 Consent [id number]# 1.00CD:127 [facility] Patient Eval Forms Officeon 04-21-2021 Patient Eval Forms Office [id number]# 1.00CD:127 Normal [facility] Patient Eval Forms Office [id number]# 1.00CD:127 Normal [facility] PT - Consentson 04-20-2021 PT - Consents [id number]# 1.00CD:127 Normal [facility] Patient Eval Forms Officeon 04-20-2021 Patient Eval Forms Office [id number]# 1.00CD:127 Normal [facility] PT - Consentson 03-31-2021 PT - Consents [id number] 0 [id number]# 1.00CD:127 Normal [facility] Patient Eval Forms Officeon 03-31-2021 Patient Eval Forms Office [id number]# 1.00CD:127 Normal [facility] Physician Orderon 03-16-2021 Physician Order [id number]# 1.00CD:127 Normal [facility] Sleep Studieson 2021 Sleep Studies [id number]#1 .00CD:127 Normal [facility] Coding Summary.on 02-23-2021 Coding Summary. CD:[id number]:[id number] G h0bWw+PGhlYWQ+ID5VGPL vY54avARurZ7ZX9eURL4D PRUVGVVCFM8KES0mpTI6C FewK3UyqwBs CviuxTPcRU81IYb0RRX4v VjxXOxepC4dpTJgG3f7Vf KkCZ00dR99QDzqQUWxPnI 3LjZpbjsgbWFy G8mmTlLatEGsBgw+PHRhY mxlIHdpZHRoPScxMDAlJy KdnIskOP0aJo7tGINoYVP vbGxhcHNlOiBj b0szVAWiVYexLX1gkZodN 2BunEG8LGQpb1a7Js57qD I+UMKtXGI4uDpbGXdsx25 8DaRss8dsYTN7 dTPwXPgjOQW0Y22et7K7N QDbWTBnONJ5aAT7uB4pxA ulnnbbI0WtbZScWsG5BJA 1aYPpyW9zqImp tofrdT4gHuf+E90MWX5HO MIPEY0MJst3Z0YnMsmvyB I+VP92QGSzPY47hQVjsQM sr3yseSr2ZiRe HUExIET4dKhoODbxl6MkO BMbE01qeYOvy3T5AZVkaM zrrIHcIdUmtVN5hN9hKIb ggtput1raicao Gyknc9deuc41cG48U38fW CggQZIhHEY7JPWyYFSknV zqmo6mrP3fYz0+FOiob2g dy4eamTs3CqBk XFQuthWhaRrmYJF3x7VbH b10W3CiiEywn6IyJyh0mv 09mKJqa0V8aOL1EXyoEYD zmB6qQJxiReG1 HOJrAjOpcV43dIRpPSwfO d7ylBaiiBkxEL3xZSGahd caVKHqnP6vCKXiaYJcxFm eMA7uQUWmjyze h742DgTiWLX1RLOhvUOqU 6QphO0bOsPmDQXcCUQaJ0 FctIEbUSoyM317NLxkLdK 1IAJhvaOzJ6Yh PQJveOifLfL0h0W0Vt0Tk 2RwgxweOID9VEwgYLX9Sn J0JnQwFuD3T6CdQfj9LNW qiVzbLA8zE4Ym SBAtixkqsjtktNO0RHGaI BBziO46yCHwJMrxZr4xy3 V8y598NLLkGXXjxO75Kr8 udDogMTBwdCBU wZ9ljxhzt0stvoquOrFoX NLfWBg3TMd8EDIduHdhXz LgHVN9UkC3TMV2rGLeeD7 dkDddfrsunW9z Oyc+H85reT4nKPW7YHN4f mvbKQFwioFvVN22JI54Q3 RyPjwvdGFibGU+PGRpdiB udAilXC2vLfKw u4ocx0ViORyvH3QnCYWlU UgpYxv3NNSxTOK3nQW0lZ 2nCXWnNPqkc7N7mFP2M7Q zbaHsbq1fm3hm DZSnOMxeV60wePZhr4E1J WBetOO6EBHmwEhqLpCugK 93Oyc+GTTdgJfze1PxNdu ey4egp7ykwTy9 IuHcRYIgllLcaXvhMPD8d 4MlIw54Z13wWOvsKHHoKW EhZXLzNJQeyEjsny9mcM8 wIi8+PGNvbCB3 rCZ9dJ2oAWToPuY4USutN 192NpCwmRYaUccvt3apm5 zveGe6WhNjRZNqaiBmyPv yNKO6b5MfBa80 A69xGKfnRFRfRRXwJDChP LUprMfjrk8btJ6nPv5+PC 4fk8kymv25hV78fGH+PHR lTPI9aMxqNArh DHShrB2qCAitTlL2KVMgJ zBcnF20gUBbVVtbXh3nyG oryVdwNK3qIRYdphqyb19 4FjFdr7cfIVDo tYQiOKczMFS7M68ba2G7W ZJbBDKnPPT4yAP2gV1aoL lnbjogbGVmdDsgdmVydGl rDFnnOGfhG025 IHRvcDsnPlBhdGllbnQgT bGiOXl6Q1BzPqh8SVWvaG moBQ9kmQLmAIbnPd1krNq blSopYU6pBQWs fsbfn392QeIrx6qzGTFki DWnFXbeNHJ2G61yp1R2IZ CgBNOdVSG5bTG4iB6pxWa nbjogbGVmdDsg fnOuaAheUArbBKvbF962R HRvcDsnPkJpcnRoIERhdG E8ZI31OP13uYFlu1M9fVI 8N6MdNNSbvdkc vszwbNO0TMUoRVPowW91N x4bbRnqEm0iLBXbYTW2MH NvwURpH8TtrH1eQvRnTYB vXQDiZ6OgcDIl KGkeU313UJcrQrP9FVUxd zKuX3WbEBXwlNdhJxQ1t5 T7No6ZR8C3WW99OL91vYV lp4Y7sYK9I6Ni OIIdnzrnitujaAD7RRIrH CXxqQ74Uh7jcTvlLw4yNZ McEPG6YPFzgDUwS5SseI4 yOiAjMDAwMDAw J2ShtLJlTPyjF496MEzeD pX6JFZchuQjD4RxOGGzfA ccFxU1u3C7Dq4DDGk6FO0 2CS17pRUwv9P5 cRO2V8CcYUDzntyefwazr DS6QADjFIWwwQ88Ep3agF naPz8iNUPdKSN5GSZtiKH iJ5LklD9pYqTd EIIxNVDmZ6PxhNGiEEhtA 476TZdyDjE7DBJlkpLmY8 RsGOOusPxzCgP6l7L4Wi4 PYOBhWD23EWC3 lRC2OJ33GM79T7ZuPemwf GFibGU+PHRhYmxlIHdpZH RoPScxMDAlJyBzdHlsZT0 sLo5oAGVaAVIr aLqwoBWbWeTwc0htNJFyP MbdES2vrHdvZ1LvrLY7BP Hun9e8Ap12G97eJ6NzbBL +LCOnrAV5uGC0 aT6kLzOiNwU5KUppF634B sPcySVoSnkrs8ygx1ytcP a1WqY1QHFxyzIwrXiqOZY 8v6UzUv76A25v IHdpZHRoPSIxNSUiIHZhb Hooyn0efZ6cKx5+PGNvbC R2yIF1bM3aQuWzOmK3VMe bK331RvBmfXIz Rujcr3mgf3fugFo1AkKiJ ZJtfdOapClwSWQ6k5MhWg 11N3WgeSxun4EsGkb4fy3 8eMCrb9F7wKW6 U8LqOZHtifuidHYyqMlpO A5mMAWpkiheDCDdiC0dKS VcJ2d1FoWpSaO7OPrsH2A ehjJ4THGyhMNm GZdfKVG0B10by8L6CZScY TJhRCN0jHX8zE1hbGetjz ogbGVmdDsgdmVydGljYWw vZRvtC004HARc nXsjKUUyiL1zFSJgsGFyl JjlLF2lGFIcezkbWmPCLk BOCeJFTKGFS2xDNwESCS0 6UV59qURco3N1 pAZ4P2IkRGCpsgwlhhcoo GJ7FGVcPBPbwC67iCGqKI bfSq9cz5L4z414UUKoGQC crV18Jj8jxUdh ZEEwjBYUoA8ekwbnz6bfi afcUiTgQSGeOPm5MDr8OW DkgNxlYiCvSRF4StS8ATR 1oJEfxP6nfNgi veqocV4xRke+MDkvMDMvM Xo1AcqkeCQ+VLTbZZZ8jP mqFXomTGMuuH3bWGGpC8d 9UsMeBhD4GDdi A2ZzUIJtvvsoIi06oW2sZ nKeAaC4DJxsR3VpihP1LL FlsDEtXKacODN3N27cw1J 4FQZbIPXmAJF6 dEM9wX9mlEylojmzvDYep DsgdmVydGljYWwtYWxpZ2 17YHBloGyyBvO3EKahKXG xBU98TL39zBIu k3D0wWY2S9FlHIRfbaaaz lzgiAB4YMLkJBAumL23hT IvUEmeWv8hd9Q6n690SUL oKNQdvK19Gm6g nZtzVVAjmIYIdX3sujzbe 3kmujtoJkEdLPOzFOo1RL j9RGJiyHmdUeDyAFT5TuX 3HNR8fDTzxF1m nXujlryssA8uQgb+TWFsZ TwvdGQ+MLLzTHG9xZljIB spZBCxbT7kOOGfU4s8LpC mRyH6ZSmlR0Vh CNIexlijKo30dI8hQcSiL iS7EKinJ5OlcaD1VMDjyT NgLUhkRUH0C17hs7L7XEV jNGLyCCX6jWG8 sK7haGeoxfowcJJrhSkmh dNzoUlyIKnrRKdoB994TP AzlEbmUf75zMRdkWtxtzM 1S9RtFxakkRW+ UA27FNVhPM70nLXidXDib 5yyhCg5JnXvKMNkWIM2rH nePKghv0JyXVReE06zpCU fm3Y1NPRubOam rBYjOkWquSF0xD0rYYmme asyd5ueliceZxrdn8jksc 34aE33P52mLYcsGFJbENF zMCUiIHZhbGln wi0rtD1iSv1+WHJnxPA1b GG2wQ3nVbXkIhB2GOdeM7 16FbAzfXWdRkpqw1ytr5w dxGi5MjRxSGFa etNsuNdzZGL0m2GjLr14P 29sIHdpZHRoPSIyMCUiIH UykTqunk5zrO7tUt6+PC9 kn4grjy60oU75 dHI+ALQpTUK5qFsjAIbrL XJnlQ9wCOdhRkT5TSPfLy EynF16oQZsVWpkKy6rpIq auFzeEO8vCXHy dtaum828MaCpu1eePHDoi TYlEOaxZDY8L10ks6T5MU XcYOPjXUP0cUF7dH6pzVb nbjogbGVmdDsg vkJgjGrnWKpdBSyhZ273U OIzeCkeTzZveKScE7zknd LCXC2mSmewsTL+PHRkIHN 0eWxlPSdwYWRk vZ1dEHBhE6u4AaFaVoI6B UllB5BhgfJ5ENMssNBiQN AlnXTOsP0hcsrvf0bjulq gIzAwMDAwMDt0 XNz1SUGnhPjpNoXjVEQ7B zS4FHC2kWFjzI5piFnlru axyY1zPel+RklOOjwvdGQ +TANkPME9nPfx IRzeDRAfcW7oLUCqK4y8Z oUpSwD2EIykH3FrloM4MF HtbVDwDTMfxRAVxR8pmgb wf2gjmkgrMlWj CUCdDJh4NTo0BSEaaMayV fVfGWX7RxJ0BXU4kWDwqR 8pxHuzkkbnqL3dAvu+TVJ OOjwvdGQ+PHRk EDO1nXgiZDqoEXLbnY1kA SPiX1z8MgIoPeX3QQvwH5 ZnskA5WHKzuDYlWXRxgMT ZpS4sndosf9ql fxrqNfAtXWAqYZe7JQd3B OXrtNddWaEvDER4SnP3YD G8bEIomD1qtVnogumreW9 wOyc+OTS7TPB0 RS33NG55R9ApTwyzjFNrm +PHRhYmxlIHdpZHRoPS rjHEPkWeVvhBzpWK9kVl6 yZGVyLWNvbGxh cHNl (more content not included)... Normal [facility] Coding Summary.on 02-22-2021 Coding Summary. CD:[id number]:[id number] G h0bWw+PGhlYWQ+PA8MGEK zS15quNCvsP6DD9jPII1B DICDVABVFS6MZT3fyGV6U RnhD9JgqlHd AtihhAQvUE99VHt4QZX8i SlcBLuptH1xpSMsZ2q8Zc DmJR68xR78OLkhCEXdGyA 3LjZpbjsgbWFy B3lbMuDmqEGcFcd+PHRhY mxlIHdpZHRoPScxMDAlJy BeyYjoOU5pGf6dKMXpNCR vbGxhcHNlOiBj n3lnWZPjRByzBR1hhQnoF 4KnzKC2WRRjt6s2Jb42xG I+HAEuGTG7jByvNIsdp84 7BfRsy2fdRJJ3 oDFjOQqzLMR4K87ul2L7W SSvDLXaJIO8rZJ1wF9akK fttrgpJ7WeeYWsIgL9GBB 2gISsdW2wqXff dqawgJ6qQdr+K70ERM9IR EMWCK1KVpj4T0FtEutgdH I+WN04VBLdGQ78nZXfbCT ci9vzwXe8CsId BMWdFPF5fVouWWipt3CqH PWfH60asVRyp3I8LCEnsT vmpAHiCqOeoQU6eJ4wRLi jrfcfj8iarrrp Litex3xyix71oH30D59vN EhpVTEmWEO0YROjFSMszR flmg3bnG6tWb9+GUxuf6d ui9mtoPe7FgOp EVIcooMizBakJHJ9w7VfI l98X6XigTkva8LuNnq4pl 20rTMxk6M1gUR9EBhzGNZ lrN8fFGzjReZ7 KECfCpWqyG58oZCxTMliP a1vbFmloAnzNZ0gCGNsyx ndPNGmbS8yAFLubCWuyIx uPE8dVFTsgmer a915HmGuLXP5NLUdjHUwG 0EdlM1vOmKuALSeMJVqJ2 AmkLNeGHxgZ846VVbwExQ 3VJRnciZaX7Hy OFBknXwrMmN5l0N9Et4Dr 1VabxovURD5FWzkOIB8Tv C0KbUrQbS1H6VaSxy6FYA irWytIH7sE3Lf CNOqytccmwriyGF6RZTtU DDneZ65uTIoWIxxHa2dk1 O2y432TXJtMQFegK18Tt6 udDogMTBwdCBU eT5ysaoaq3pkgfpsDcSdD IBdJAv7ZHp1RMFgxGhmMf DtPGA3IiK9QCP4gYSgwI9 hvPyqsednnI2t Oyc+J67jkJ7aWQH9BYK2a nvuEPGuacLkOW52DU30I5 RyPjwvdGFibGU+PGRpdiB qaXanQR7yRuQp s8tej9TcUMywP7LrZBKdM EoqLoo4BKIiTCU5iVW7zT 1aUIBhRIjoy2L2sSE1Q9U wewAtzs1re3yn QVVkGLqsA82ydYGtv5O0M OSbkSR4UVAexZwzHdGndO 93Oyc+SLQcrDclh7IwRlq jl8byr3kueRi7 PkWnALMonmWxpAcqSKI4t 1MiIp23B54pJEdkZOGoRH GfBRRsINMghPyivp5rqP2 wIi8+PGNvbCB3 oOC4bI1nEXScVdR8AWqoL 341HjOvnPMsLyksz7raq6 nvgEo6JaQfPQTehfIawWw yZVJ1n8FmAz45 R10wGOsgWOPgNPYfNXImB OKavEibfp1szJ4gCu9+PC 8im9vdfh66uG79vNS+PHR nMTG4aTjqOBsc ABRnlV4hNRwbBzU8OKLfH uTvuV64aXCbQIddHm5saR osvAsfMW3hXCIplsyop21 3MuMpb5qhCMQo fOOpJOltDWK1T08vy5Z1A LOwCVWrGTV6bPQ6eM6mdD lnbjogbGVmdDsgdmVydGl xDGywKUrzJ467 IHRvcDsnPlBhdGllbnQgT fFgSZl8C3RwPdz8VRBdkU neDW3kzAKnLPvtPb0goJl tuVbhSG0xSVTn nywhy378NwMdn5nuASTdt NMfBYkgRCW7S65fw1R3HR HtBFJfCJJ9jSC9iZ2qwXw nbjogbGVmdDsg bfQlxFlzAZdsZOqnH987G HRvcDsnPkJpcnRoIERhdG B2QS20EE44rSQzx5E7xBX 3E4YbXVLxgsvy ulocaIA3BKStROCboK48L v7ooNdcLi4aEMGvDWO9NQ VjlIWhO2SxjJ2nJjNjWNP bABIsM0IouKFs XJosO293HDieGjO4ACKvb xPcY9CcYZIsgTvmCcH9d0 Z1Jc2FU8A7MK49UO02uZR bf0S7aMM6Y5Iv ZNTstczenzngkGW6QTNdK UUlvN04Ec8jzIkeZb9jTB RySUC1FZZwjCUoJ0ThqA1 yOiAjMDAwMDAw L0JokBUkDKekH743ARqqA hK7LZSvhkVdA6JzETQanF usOjQ6b0T5Eu6EGXi5ST6 1JY30yRPjk2G3 dFK4I1SqLHJupflhdjopr XB4MQMgFLAzbO68Ez5arK yyEl7aLOIdPSN0JVDovLN rZ5EsnV4cJhFo PRFcDHXdQ2UxuFGcFDdgO 964OJygNwB5HYZidhDzA6 VfNEMgxQonZkV0q1P4Zp1 YOYMdZT28SNN1 nED5TT97FK95Q1LyMaafe GFibGU+PHRhYmxlIHdpZH RoPScxMDAlJyBzdHlsZT0 mXv2uNZIiBDYh lRcgkVVdHtDbg3fvHUKmQ KquXE5teYicW5ZlhNO0AR Vsn2c3Mp31E63pN1ZrhRN +SZUmtWI6dEZ0 uH4dXbBdVkG1DGymP907X hAhfSYvKmgci4juw2nieJ c0CdH7XFZwevBxhBqiCQL 1f4AuPh63A86v IHdpZHRoPSIxNSUiIHZhb Dyeqi8vdX3vGt7+PGNvbC D2fLV7dY6kDxUsGpU9LPg tA356UcMvoSFo Yrgjo3ptf4rxuQq7TxPzF HBssrThgPuoUHP1j1LiNh 03X5DhfWddf2CwIbp5ez9 0vNTad5O3yWL4 Q1SjGBUburnoyHDtrCbyB K5oARGvlsxlCQSiwY9kXA UnB9m1NfIrAfE0AHjqF7Z ajcI7AXFybRBx DRcrTQW8E36ei7V3XIYwC XUtKWM8eMG9eQ0mjThvqq ogbGVmdDsgdmVydGljYWw iEVagH654DBDr eCatPUVasD2oXVVisMVmo MfrME3pUOPllogkIxLXEp BOOrJGMUIZW7rMBjLSEQ1 9BE89yIMhs4K1 bKW3B0CtPMUqspnboqdae XW0OQEuBRJioU86kDOjUV lbJx7ua8H7e800GYQzOJT hoH51Lv0gqJbs LVIksPTOdN7eikdky6ics qvcHxJaTUCdYHl5JFi8GH TnoDhqTiVtYME4TvL2KOR 1iUTuiM3oxPkg zvedqR0vPks+MDkvMDMvM Rv2GcuxjWV+AICjDRQ7rU nhWKfbVPZtzM2lSQKhJ3v 8RrBwZoZ4JXis Y0NvRVSlnbwsXz21cR2xY mBmPqP7MHvbJ8VbreN1TZ VikXUbQMooZWV5Q15bv1U 8RCQbLXTgRMK4 qBF1gP3wmPbuaqizyOYhp DsgdmVydGljYWwtYWxpZ2 23ZUYjzPvjDuT3MChkGAP wAE25QN00qDPs g3H9sQG8J7KkCCZgjielb dokgQM7EKZgDBFxyS38iW RcOIotQg8ld5X1s397AFS qQNJlqB10Oh1q cYmqSMVirKYOjJ3orejht 5eebhxlUaEgRDJgVKh6ST z2RKRbqLraZyNrZJH0NyL 5XCM6yLDhoG7x xVahupuzaV9kKoz+TWFsZ TwvdGQ+ICPuMRT2tBzsUR lfBLLhxS6gRIXpM6o6HlM qQsB4VRaoE3Jw AVAbrxqlMx34pZ9xUkZpL nB5TMnlY1IxocR3VACabC NkTZpvBZP8F04rk8W2VGS cOYQcPFO0kIS5 mY4vhYlgeajanHOuuGnxu dBtvTkpKBhvPNezF049EK AuxZbqSo42vCGnxMgrjcT 5U2XqVwbdmVU+ EY01FZIlMG80gOTzoWWdy 0vhqAw3ZgZaHTWnFWM6bN tkJFjvh6WvMSFoC40yoNL gh2C0TJSuaCwz tNGxGyRhyVJ9fC7gIXwzt ijrb7lrfocfKzwqx0kasg 78vE51N51wYDlaIXOpUWG zMCUiIHZhbGln lu0bkN4gQv7+SMCuoOO3l CJ3aZ5vYuHmMcB3OGqpE2 66MzQytAOtRypun9wgk5z tzNa0XvUnNQLj wlPtnPllZGU2q9AvLb08O 29sIHdpZHRoPSIyMCUiIH EcqWokwi5jtU8fIb8+PC9 op6gtfr42zJ24 dHI+XFYyAKL9iJedLRjrD FHbrL9lLFyvUrW3JPEkZc YzlO00rMBiQSgkPy6flOz hzRtoWP9zLIEe zznbh568EkTed4vvFFTdh JPoEMqdSFL8Z36sr2L6IM AaMMAqELR3qCQ9bV9nyCe nbjogbGVmdDsg byVyuCfzHWytLIttL148C ASpxKlgAbZuoJPmY9hayp HRJD5gVbtacBL+PHRkIHN 0eWxlPSdwYWRk tE3nNRHyY1g5JoMlWbG0E LhvX3KfoxC6KJDhnNPmQS SgaQWVcR7ydmzrh9adbje gIzAwMDAwMDt0 HZw9MLUbbNxfSkZvCWT0M uZ8EKT0uNGloW6riReyqu sruD8xGcf+RklOOjwvdGQ +WWWjIAO9pXhk BVbwWWQoqT1kJJYhD7d6B yJvYxG7MRheN5RgafE2OO LrbTCtLRMoqUTQoT1iybm sz9azqwwkEgCh MZCcPVb7ZNc3VBNhxXreD aNrINM4IkH3FPF9fWGsgW 9ddPqremuszU7pFfk+TVJ OOjwvdGQ+PHRk JYH7fWpmRVslLFGraA8nH WRxZ8t4VdSoMfV7DItcB3 SeksY7KVAsoVSiPOZtnJI GdC6oowaqr4ik gwssCrDkBLXfJBq2BUm3E FMnjDlyTpAbMZV5VzM5HB X4gUYaaI8vcSxyyyztnR3 wOyc+YXQ3PIJ4 FU02ML42H8HbTnkuoVIkw +PHRhYmxlIHdpZHRoPS jfAIHwQyCasClyAX3bPh0 yZGVyLWNvbGxh [facility] (more content not included)... Normal [facility] Patient Eval Forms Officeon 02-21-2021 Patient Eval Forms Office [id number]# 1.00CD:127 Normal [facility] Consenton 02-20-2021 Consent [id number]#1 .00CD:127 Normal [facility] Patient Eval Forms Officeon 02-20-2021 Patient Eval Forms Office [id number]#1 .00CD:127 Normal [facility] Patient History Officeon Patient History Office [id number]# 1.00CD:127 Normal [facility] Physician Orderon 02-16-2021 Physician Order [id number]# 1.00CD:127 Normal [facility] Sleep Office/Clinic Noteon 0 02-15-2021 Sleep [...] MOREAU, Beth Ramirez, PUL, LUZ MARIA [address] [facility] [place] [address]- Additional Instructions: after his testing is completed Problem List/Past Medical History Ongoing Smoker Historical No qualifying data Procedure/Surgical History broke leg. Medications [place] 325 mg-5 mg oral tablet, 1 tab(s), Oral, q4hr, PRN Allergies No Known Medication Allergies Social History Alcohol Substance Abuse Tobacco Immunizations Vaccine Date Status Comments SARS-CoV-2 (COVID-19) mRNA BNT-162b2 vax 09/30/2020 Given Prophylaxis SARS-CoV-2 (COVID-19) mRNA BNT-162b2 vax 09/09/2020 Given Prophylaxis diphtheria/pertussis, acel/tetanus adult 12/05/2019 Given Normal [facility] Comment on above: Result Comment: Elec tronically Signed By: Kirk MOREAU, Beth G.\.br\Date and Time Signed: 02/15/21 14:[address] [...] MD 08/01/20 Final result Normal [facility] No acute abnormality of the cervical spine. Multilevel degenerative changes. [facility]- [place], [place] Claudio, [employer] Incoming Radiant Results From [employer] - 08/01/2020 1:22 PM EST EXAMINATION: CT [...] of the cervical spine. Multilevel degenerative changes. [place] EXAMINATION: CT OF THE CERVICAL SPINE [...] There is no prevertebral soft tissue swelling. [place] CT HEAD WO CONTRASTon 2020 CT [...] MD 08/01/20 Final result Normal [facility] Claudio, Mh[employer] Incoming Radiant Results From [employer] - 08/01/2020 1:20 PM EST EXAMINATION: CT [...] fossa. 2. No convincing acute intracranial abnormality. [facility], [place] EXAMINATION: CT OF THE HEAD WITHOUT CONTRAST [...] of the visualized skull or soft tissues. [place] 1. Streak artifact from dental amalgam limits evaluation of the posterior fossa. 2. No convincing acute intracranial abnormality. [place] CT THORACIC SPINE WO CONTRAS Ton [...] MD 08/01/20 Final result Normal [facility] Claudio, Mhpn Incoming Radiant Results From [employer] - 08/01/2020 1:29 PM EST EXAMINATION: CT [...] fracture or malalignment of the thoracic spine. [place] EXAMINATION: CT OF THE THORACIC SPINE [...] SOFT TISSUES: No paraspinal mass is seen. [place] No acute fracture or malalignment of the thoracic spine. [place] XR ELBOW LEFT (MIN 3 VIEWS)o n [...] MD 08/01/20 Final result Normal [facility] Claudio, Mhpn Incoming Radiant Results From [employer] - 08/01/2020 1:11 PM EST EXAMINATION: THREE [...] the left elbow. 2. Minimal degenerative changes. [facility] EX[facility]: THREE XRAY VIEWS OF THE LEFT ELBOW 08/01/2020 12:51 pm COMPARISON: None. HISTORY: ORDERING SYSTEM PROVIDED HISTORY: trauma TECHNOLOGIST PROVIDED HISTORY: trauma Reason for Exam: fall Acuity: Acute Type of Exam: Initial FINDINGS: No acute osseous abnormality seen of the left elbow. There is minimal degenerative changes of the left elbow. No evidence of dislocation. The soft tissues demonstrate no acute abnormality. [facility], [email or web address] 1. No acute osseous abnormality identified of the left elbow. 2. Minimal degenerative changes. [facility] [place] Vital Signs Date Time Vital Sign Value Performing Clinician Facility 09-19-2023 08:30-0400 Body height 185.42 cm [facility] 09-19-2023 08:30-0400 Body mass index (BMI) [Ratio] 25.6 kg/m2 [facility] 09-19-2023 08:30-0400 Body weight 87.99 kg [facility] 09-19-2023 08:30-0400 Diastolic blood pressure 72 mm[Hg] [facility] 09-19-2023 08:30-0400 Heart rate 57 /min [facility] 09-19-2023 08:30-0400 Systolic blood pressure 162 mm[Hg] [facility] 06-06-2023 10:15-0500 Body height 185.42 cm Adriana Mejia Other [employer] Other 06-06-2023 10:15-0500 Body mass index (BMI) [Ratio] 25.54 kg/m2 Adriana Mejia Other [employer] Other 06-06-2023 10:15-0500 Body weight 87.82 kg Adriana Mejia Other [employer] Other 06-06-2023 10:15-0500 Diastolic blood pressure 70 mm[Hg] Adriana Mejia Other [employer] Other 06-06-2023 10:15-0500 Systolic blood pressure 159 mm[Hg] Adriana Mejia Other [employer] Other 04-19-2023 09:30-0400 Body height 185.42 cm Adrianaugo Mejia Other [employer] Other 04-19-2023 09:30-0400 Body mass index (BMI) [Ratio] 24.7 kg/m2 Adriana Mejia Other [employer] Other 04-19-2023 09:30-0400 Body weight 84.91 kg Adriana Mejia Other [employer] Other 04-19-2023 09:30-0400 Diastolic blood pressure 77 mm[Hg] Adriana Mejia Other [employer] Other 04-19-2023 09:30-0400 Systolic blood pressure 159 mm[Hg] Adriana Mejia Other [employer] Other 01-06-2022 07:59-0400 Body temperature 97.7 [degF] Kriill Simon [facility] 01-06-2022 07:59-0400 Diastolic blood pressure 88 mm[Hg] Kirill Simon [facility] 01-06-2022 07:59-0400 Heart rate 60 /min Kirill Simon [facility] 01-06-2022 07:59-0400 Respiratory rate 15 /min Kirill Simon [facility] 01-06-2022 07:59-0400 SaO2% (BldA) [Mass fraction] 98 % Kirill Simon [facility] 01-06-2022 07:59-0400 Systolic blood pressure 202 mm[Hg] Kirill Simon [facility] 08-01-2020 13:03-0500 Body Temperature 97.59 [degF] [place], [place] 08-01-2020 12:35-0500 BP Diastolic 73 mm[Hg] [facility] , [place] 08-01-2020 12:35-0500 BP Systolic 149 mm[Hg] [place], [place] 08-01-2020 12:35-0500 Pulse (Heart Rate) 76 /min [place], [place] 08-01-2020 12:35-0500 Pulse Oximetry 99 % [place] 08-01-2020 12:35-0500 Respiratory Rate 18 /min [place] Encounters Encounter Date Encounter Type Care Provider Facility Start: 12-02-2023 End: 12-02-2023 ambulatory Brett Mantilla MD Facility: [facility] Start: 11-11-2023 End: 11-11-2023 ambulatory Andsilas Mantilla MD Facility: [facility] Start: 10-28-2023 End: 10-28-2023 ambulatory Brett Mantilla MD Facility: [facility] Start: 10-14-2023 End: 10-14-2023 ambulatory Brett Mantilla MD Facility: [facility] Start: 09-19-2023 End: 09-19-2023 ambulatory [facility] Work Phone: Start: 09-19-2023 End: 09-19-2023 Patient encounter procedure [facility] Work Phone: Start: 06-06-2023 End: 06-06-2023 ambulatory Adriana Mejia Other [employer] Other Start: 06-06-2023 Office outpatient visit 15 minutes Adriana Mejia [facility] Start: 04-25-2023 End: 04-25-2023 ambulatory Adriana Mejia Other [employer] Other Start: 04-25-2023 Telephone encounter Adriana Mejia [facility] Start: 04-19-2023 End: 04-19-2023 ambulatory Adriana Mejia Other [employer] Other Start: 04-19-2023 Patient encounter procedure Adriana Mejia [facility] Start: 01-13-2022 End: 01-14-[address] ADRIANA MEJIA Facility:[facility] Start: 01-06-2022 End: 01-06-2022 Emergency department patient visit Kirill Simon [facility] Start: 01-06-2022 End: 01-06-[address] LENA MARIE Facility:[facility] Start: 01-03-2022 End: 01-03-2022 Patient encounter procedure ADRIANA MEJIA [facility] Start: 10-09-2021 End: 10-09-2021 Patient encounter procedure Beth Bradley [facility] Start: 08-01-2020 End: 08-01-2020 Emergency department patient visit TOMI W [facility] Start: 08-01-2020 End: 08-01-2020 Emergency department patient visit Tomi Estrella Work Phone: [facility] ED Comment on above: Closed [...] Radex elbow complete minimum 3 views George Kat Alcala Work Phone: neeru Campos Kirk Plan of Treatment Date Care Activity Detail Author Start: 12-04-2029 DTaP/Tdap/Td vaccine (2 - Td) DTaP/Tdap/Td vaccine (2 - Td) [place] Start: 03-01-2020 Influenza vaccination Flu vaccine (#1) [place] Start: 2018 Pneumococcal 65+ years Vaccine (1 of 1 - PPSV23) Pneumococcal 65+ years Vaccine (1 of 1 - PPSV23) [place] Start: 2003 Screening for malignant neoplasm of colon Colon cancer screen colonoscopy [place] Start: 2003 Shingles Vaccine (1 of 2) Shingles Vaccine (1 of 2) [place] Start: 1993 Lipid panel Lipid screen [place] Start: 1953 Abdominal aortic aneurysm screening AAA screen [place], [place] Start: 1955 Hepatitis C screening Hepatitis C screen [place] XR Lumbar spine 2 or 3 Views [facility] Immunizations Immunization Date Immunization Notes Care Provider Ally machado 04-19-2023 influenza virus vaccine, unspecified formulation [facility] 04-19-2023 influenza, high dose seasonal, preservative-free Adriana Mejia Other [employer] Other 09-30-2020 COVID-19, mRNA, LNP- S, PF, 30 mcg/0.3 mL dose; Translations: [Pfizer-BioNTech COVID-19 Vaccine] Beth Bradley [facility] Comment on above: Reason for Medicatio n: Prophylaxis 09-09-2020 COVID-19, mRNA, LNP- S, PF, 30 mcg/0.3 mL dose; Translations: [Pfizer-BioNTech COVID-19 Vaccine] Beth Bradley [facility] Comment on above: Reason for Medicatio n: Prophylaxis 12-05-2019 tetanus toxoid, reduced diphtheria toxoid, and acellular pertussis vaccine, adsorbed; Translations: [Adacel (Tdap)] Beth Fischerd [facility] 04-27-2019 influenza virus vaccine, split virus (incl. purified surface antigen) Adriana Mejia Other [employer] Other 04-27-2019 influenza virus vaccine, unspecified formulation [facility] 04-27-2019 pneumococcal conjuga te vaccine, 13 valent Adriana Mejia Other [facility] 07-08-2017 diphtheria, tetanus toxoids and acellular pertussis vaccine, unspecified formulation Adirana Mejia Other [facility] Payers Date Payer Category Payer Unknown 2018 Medicare 1961 Medicare [id number] 1961 Private Health Insurance [id number] 1953 Unknown [id number] [id number] 1953 Unknown [id number] 2.16.84 [id number] 1953 Unknown [id number] 2.16.84 [id number] 1953 Unknown [id number] 2.16. [id number] 1955 Unknown [id number] 2.16. [id number] 1955 Unknown [id number] 2.16. [id number] 1955 Unknown [id number] 2.16. [id number] Social History Date Type Detail Facility Start: 08-01-2020 Tobacco smoking stat us [facility] Current every day smoker [place] History of tobacco use Cigarette Smoker M [place], [place] Start: 08-01-2020 Tobacco use and exposure Never used [place] Start: 08-01-2020 Alcohol intake Current drinke r of alcohol (finding) [place] Start: 08-01-2020 Alcohol Comment daily 3-4 beers per day [place] Sex Assigned At Not on file [place] Tobacco [facility] Comment on above: smokes 1 ppd. Sex Assigned At Male [facility] Start: 1955 Sex Assigned At Male F [facility] Functional Status Date Assessment Result Facility 01-06-2022 Functional Status N/A [facility] Clinical Notes 10-04-2021 to 06-06-2023 Note Date & Type Note Facility 06-06-2023 Evaluation note Encounter Date Diagnosis Assessment Notes May, Removal of michelle (ICD-10 - Z48.02) Pt tolerated staple removal well. Pt denies LOC or fall without reason. He slipped in slippers on an icy patio with dog outside. Steristrips applied.. Keep area clean. [employer] Other 10-20-2023 Evaluation note* Encounter Date Diagnosis [...] to quit smoking. Agrees to LDCT at [employer] Other 07-09-2022 Evaluation + Plan noteExtracted from: Title:ED Note Author:Ramon Gauthier PA-C te:01/06/22 Otitis externa (H60.90: Unsp ecified otitis externa, unspecified ear) Orders: ciprofloxacin-dexamethasone otic, 4 drop(s), Ear-Right, BID for 7 day(s), 10 mL, Refill(s) 0 [facility]07-09-2022 Hospital Discharge instructions Patient Education 01/06/2022 [...] antibiotic even if your condition improves. Take actl-tyd-ejybkue and prescription medicines only as told by [...] 06/17/2006 Document Revised: 11/21/2018 Document Reviewed: 11/21/2018 [employer] Patient Education 2020 [employer]. 01/06/2022 08:25:56 Ear Drops, Adult Ear Drops, [...] 06/11/2002 Document Revised: 05/30/2018 Document Reviewed: 06/20/2017 [employer] Patient Education 2020 [employer]. Follow Up Care 01/06/2022 07:58:43 With:Elizabeth Veliz Address: [address] [place] [address], [address] [place] [address]- Business (1) When:01/09/2022 08:19:10 With:ADRIANA MEJIA Address: [address] [place], [place] [address]- Business (1) When:01/09/2022 08:19:07 [facility]04-06-2022 Hospital Discharge instructions Follow Up Care 10/04/2021 10:34:18 With:Kirk MOREAU, MANAV Vincent, LUZ MARIA Address: [address] [place] [address] [place] [address]- When:1 year [facility] No data available for this section [facility] noteNo InformationNortJames E. [facility] [employer] Other Evaluation note* Diagnosis Onset Date Resolution Status Lumbar pain with radiation down both legs [facility] Work Phone: History general Narrative - Reported* Type Description Date Medical History Depression, controlled Medical History Generalized osteoarthrosis Medical History Transient insomnia Medical History Obstructive sleep apnea Surgical History Hernia Repair Surgical History Left ankle surgery - with plate s and screws 2014 Hospitalization History SEE SURGICAL HX [facility] [employer] Other Hospital Discharge instructions No data available for this section [facility] No data available for this section [facility] Discharge Instructions * Instructions* George Alcala, - 08/01/2020 Thank you for visiting [facility] Emergency Department. You need to call Adriana Mejia MD to make an appointment as directed for follow up. Should you have any questions regarding your care or further treatment, please call [facility] Emergency Department at [phone]. Take any medications as prescribed, if given [...] Everywhere. * Head Injury: Closed: General Info (Lao) documented in this encounter Assessments Diagnosis Closed [...] Date/ Time Advance Directives No September 18 024 8:20am Chief Complaint and Reason for [...] section and content) DATE CREATED AUTHOR 08/02/2020 [facility] DATE CREATED AUTHOR AUTHOR'S ORGANIZ ATION 01/17/2022 Claudia Bunch [facility] DATE CREATED AUTHOR AUTHOR'S ORGANIZ ATION 01/18/2022 [facility] DATE CREATED AUTHOR AUTHOR'S ORGANIZ ATION 12/10/2023 [facility] Care Team (unrecognized sect ion and content) [...] BE BASED ON THE PRIMARY CLINICAL RECORDS. [facility] [employer] [facility]. provides no warranty or guarantee of the accuracy or completeness of information in this document.
--- NOTE | 2024-01-01 08:35 | P.CN_ITS ---
Consult Note: HPI Data of Consult Patient: known to practice within the last 3 years Consult date: 10/14/23 Requesting Physician: Xiao Santamaria NP Primary Care Provider: Adriana Downs MD Consult Narrative Reason for consult: low back pain Narrative: 68yom who presents for evaluation. persistent low back pain, worsening over past several months. imaging reviewed, which shows facet arthropathy in lower lumbar spine. engages in provider directed home exercise program >6 weeks, without benefit. uses meloxicam, which helps minimally. Recently underwent bilateral L4- 5 L5-S1 facet RFA with >60% improvement ongoing 07/10, increasing to /10 with standing walking. cc:: CC: Xiao Santamaria NP Review of Systems ROS Status of ROS 10 or more systems reviewed and unremark able except as noted in history and below Musculoskeletal Reports: back pain PFSH PFSH Medical History Low back pain ?M54.50 - Low back pain, unspecified (ICD-10) CPAP (continuous positive airway pressure) dependence ?Z99.89 - Dependence on other enabling machines and devices (ICD-10) Sleep apnea ?G47.30 - Sleep apnea, unspecified (ICD-10) Smoker ?F17.200 - Nicotine dependence, unspecified, uncomplicated (ICD-10) Hypertension ?I10 - Essential (primary) hypertension (ICD-10) Surgical History S/P inguinal hernia repair ?Z98.890 - Other specified postprocedural states (ICD-10) ?Z87.19 - Personal history of other diseases of the digestive system (ICD-10) History of surgery on lower extremity ?Z98.890 - Other specified postprocedural states (ICD-10) Social History Smoking status: Never smoker Meds Home Medications and Allergies Home Medications ?Medication ?Instructions ?Recorded ?Confirmed ?Type escitalopram oxalate 10 mg tablet 10 mg PO DAILY 10/14/23 12/02/23 History lamotrigine 25 mg tablet 25 mg PO DAILY 10/14/23 12/02/23 History losartan 25 mg tablet 50 mg PO DAILY 10/14/23 12/02/23 History meloxicam 15 mg tablet 15 mg PO DAILY 10/14/23 12/02/23 History diazepam 10 mg tablet (Valium) 10 mg PO ONCE 12/02/23 12/02/23 History Allergies Allergy/AdvReac Type Severity Reaction Status Date / Time Unable to Assess Allergy Verified 12/02/23 09:21 Exam Constitutional Documenting provider has reviewed patient's vital signs: yes Common normals: no apparent distress, oriented x3, healthy appearing, alert and well nourished General appearance: cooperative HENMT Common normals: normocephalic, hearing grossly normal bilaterally and moist oral mucous membranes Head and scalp: normocephalic Eye Common normals: PERRL Pupil: PERRL Neck & C-Spine Common normals: full ROM General: normal visual inspection Chest Common normals: inspection of chest normal Respiratory Common normals: normal respiratory effort, no retractions and no use of accessory muscles Back & Pelvis Lumbar spine/lower back: normal to inspection, lumbar ROM normal, pain with ROM, paraspinal muscle tenderness and paraspinal muscle spasm Sacroiliac joints: SI joints normal Extremity Common normals: normal to inspection and full ROM Neuro Common normals: oriented x3, CN's II-XII intact bilaterally, moves all extremities, no focal motor deficits, no sensory deficits noted, deep tendon reflexes 2+ bilaterally and gait normal Sensorium/orientation: alert Motor exam: strength 5/5 throughout and no movement abnormalities noted Psych Common normals: mental status grossly normal, thought process normal, cooperative, affect normal, speech normal and activity/motor behavior normal Speech: normal speech Thought process: normal thought process Results Additional Findings Additional findings: If on a controlled substance or opioids, I have checked an [facility] report on this patient and there are no aberrancies noted in the prescribing history.??If on a controlled substance or opioid a drug screen was completed and reviewed within the last year, and if there has not been a drug screen completed we ordered one today to monitor higher risk, state monitored pain medication use. As part of providing excellent, safe, comprehensive care, the following was completed at our patient's visit: 1. A medication reconciliation and review to ensure accurate knowledge of current/active medications, including asking our patients to inform us about any [id number] medications or herbal remedies/nutritional supplements/alternative remedies. 2. A review to specifically ensure our patients have had annual screening for screening for depression, screening for tobacco use, and screening for unhealthy alcohol use. For concerning screenings had a discussion with the patient, provided patient education, and recommended follow-up with primary care provider when appropriate. If patient noted with a risk of falling, they received education on strength, gait, and balance training to prevent future risk of falling. Assessment and Plan Assessment and Plan (1) Lumbar spondylosis: (2) Lumbar degenerative disc disease: (3) Myofascial pain: Plan bilateral L4-5 L5-S1 facet RFA providing moderate relief ongoing continue mobic 15mg daily encouraged heat/ice and discussed/ordered tens for myofascial pain and chronic low back pain f/u as needed
== END 2024-01-01 08:07 | disposition home or self-care (01) ==
LOC: PM 08:08
PROVIDERS: PCP Family Medicine; Visit Provider Nurse Practitioner
DX: M47.816 Spondylosis without myelopathy or radiculopathy, lumbar region (principal); M51.36 Other intervertebral disc degeneration, lumbar region; M79.18 Myalgia, other site
CPT/HCPCS: G0463

== ENCOUNTER 2024-05-21 07:14 | Emergency (ER) | payer MEDICARE, SELFPAY ==
--- OUTSIDE RECORDS SUMMARY | 2024-05-21 07:31 | XMS_ITS | CCD ---
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 Phone Adriana Mejia Primary Care [...] Unavailable MEJIA, DR ADRIANA Hammond Admitting Unavailable POLLY, DR [...] physicia Propensity to adverse reactions 9 Comment:Done Paymentus Other (3 sources) Allergies Reconciled Propensity to adverse reactions Unknown Paymentus Other Medications Current Medications Medication Drug Class(es) [...] tablet (3 sources) Opioid Agonist Start: 11-03-2018 [place] 325 mg-5 mg oral tablet 1 tab(s), [...] Status: Ordered escitalopram 10 mg oral tablet (7 sources) Serotonin Reuptake Inhibitor Start: 01-21-2024 take 1 tablet by mouth once daily Escitalopram Oxalate Active 0 .ROUTE .COMPLEX January 21, 2024 10:42am TAKE 1 TABLET BY MOUTH EVERY DAY Start: 09-17-2023 End: 01-21-2024 take 1 tablet by mouth once daily Escitalopram Oxalate Discontinued 10 MG PO Daily January 14, 2024 3:08pm January 21, 2024 10:43am FreeTextSig: TAKE 1 TABLET BY MOUTH DAILY; Note: Source Status: Taking; Refills: 0; Qty: 90 Tablet; Provider: Jackie Wright ( ) take 1 tablet by musa th once daily Escitalopram Oxalate 10 MG TAKE [...] 08/01/2020 Active lamoTRIgine 25 mg oral tablet (7 sources) Mood Stabilizer, Anti-epileptic Agent Start: 11-01-2023 End: 01-28-2024 take 1 tablet by mouth at bedtime Lamotrigine Active 0 .ROUTE .COMPLEX 90 January 28, 2024 9:04am TAKE 1 TABLET BY MOUTH AT BEDTIME Start: 09-17-2023 End: 11-01-2023 take 1 tablet by mouth once daily at bedtime Lamotrigine Discontinued 1 TAB PO Daily at bedtime September 17, 2023 12:00am November 01, 2023 10:36am FreeTextSig: TAKE 1 TABLET BY MOUTH AT BEDTIME; Note: Source Status: Start; Refills: 0; Qty: 90 Tablet; Provider: Jackie Wright ( ) Start: 01-25-2022 take 1 tablet by musa th at bedtime lamoTRIgine 25MG lamoTRIgine 25MG, 1 (one) Tablet at bedtime # 90, 01/25/2022, Ref. x1. Active Oral at bedtime for 0 *Pick strength-form from [employer] for eRX* Dec, Active take 1 tablet by musa th at bedtime lamoTRIgine 25 MG TAKE 1 TABLET BY MOUTH AT BEDTIME for 90 Active loratadine 10 mg oral tablet (5 sources) Start: 09-17-2023 take 10 mg by mouth once daily Loratadine Active 10 MG PO Daily September 17, 2023 12:00am Start: 10-31-2020 take 1 tablet by musa th once daily Loratadine 10MG Loratadine 10MG, 1 (one) Tablet daily # 30, 10/31/2020, Ref. x2. Active Oral daily for 30 *Pick strength-form from [employer] for eRX* October, Active losartan potassium 50 mg oral tablet (7 sources) Angiotensin 2 Receptor Brandi Start: 10-21-2023 End: 10-25-2023 take 1 tablet by mouth once daily Losartan Active 0 .ROUTE .COMPLEX October 25, 2023 11:28am TAKE 1 TABLET BY MOUTH EVERY DAY Start: 09-17-2023 End: 10-21-2023 take 1 tablet by mouth once daily Losartan Discontinued 1 TAB PO Daily September 17, 2023 12:00am October 21, 2023 1:00pm FreeTextSig: TAKE 1 TABLET BY MOUTH EVERY DAY; Note: Source Status: Start; Refills: 0; Qty: 90 Tablet; Provider: Jackie Wright ( ) take 1 tablet by musa th every twenty-four hours Losartan Potassium 50 MG 1 tablet Orally Once a day for 90 days Active meloxicam 15 mg oral tablet (6 sources) Nonsteroidal Anti-inflammatory Drug Start: 12-03-2023 take 1 tablet by mouth once daily Meloxicam Active 0 .ROUTE .COMPLEX 90 December 03, 2023 3:38pm TAKE 1 TABLET BY MOUTH EVERY DAY Start: 09-17-2023 End: 12-03-2023 take 1 tablet by mouth once daily Meloxicam Discontinued 15 MG PO Daily September 17, 2023 12:00am December 03, 2023 3:38pm FreeTextSig: Meloxicam 15MG, 1 (one) Tablet daily # 90, 12/13/2021, Ref. x2. Active Oral daily; Note: Source Status: Taking; Refills: 90; Provider: Jackie Hammond Start: 12-13-2021 take 1 tablet by musa th once daily Meloxicam 15 MG Meloxicam 15MG, 1 (one) Tablet daily # 90, 12/13/2021, Ref. x2. Active Oral daily for 0 Nov, Active Completed/Discontinued Medications Medication Drug Class(es) Dates Sig (Normalized) Sig (Original) predniSONE 20 mg oral tablet (2 sources) Start: 09-19-2023 End: 01-30-2024 take 20 mg by mouth twice daily Prednisone Discontinued 20 MG PO Twice daily September 19, 2023 12:00am January 30, 2024 11:17am Problems Active Problems Problem Classification Problem Date [...] Spondylosis; intervertebral disc disorders; other back problems (3 sources) Low back pain; Translations: [Low back [...] by: SIMRAN MATIAS Date: 2022-01-14 09:21 Normal [facility] Coding Summary.on 01-12-2022 Coding Summary. [id number] G h0bWw+PGhlYWQ+YS0DFDY mC88dtVDkiS2CD2xARF0U LVKVRMTPBS8XIS4kmSL9N HnmF5ZbmsLv KfzijYKwMB53MFq2VEP8c OcrDMqtxO2raMWbR5j3Uv KpYF05vC55GKokCNWeGdU 3LjZpbjsgbWFy S5alHcPfpRNmQbr+PHRhY mxlIHdpZHRoPScxMDAlJy VrzAksHB5gDo6aYDXgXQP vbGxhcHNlOiBj v6cnGHWaPIqeRP3sdZrjI 6AdxCQ7CAIzs0l1Mj96cQ I+HLTeLGA0zBauCDstu02 8NqVje7mkAXG4 qMToERwzNTR6D52zl2L6J LLrUQYuWSA9kEZ7tC5izM tpbkknW5RugXXeCbC1KIY 0gDEtwB2emLec doyayA5zNmw+V00PXS6KU FJNTN6FAkd1Q4WjBksqjD I+GX34PJKrWI65uPIetZN mq6nyyPl0DkPq LNGyGUH4uIupVZayk0LwV ALpM69waIAzv6F1LPXpyZ ldnUVyUyRsiGM2gO5mWNy jydtxf7evcfst Dkxcp1dair94sX70U29nN HxxHLKkCLL0ZOBwOUDlxL hoqe2xlI5fZa5+BZztj6e pu3qtqZd8EtBl ADJfadCtjNirSKJ6y6WgI b04J0DjcEtuj2NuSnj5km 80bKIxp2P7xJQ5BPtfKUY jyS3tRPvwExJ1 WBXmMdFggD49vRHbZYtlX h8gsDjbwJpwGL5eFCTynw kkGPUmvG3rMNJyzSJxyIf oKM8oYJJrixnk n269WzHbCAS7FULokVPvN 9DdvI9zXtWbAOVaHXOnI2 HugVTgFJbjW036DFpeTyL 6QHKauhQuG6Vu IDImkOlxKtN5q4F0Zg2Mg 6AyvlhfMVM8ESupDTR6Qt Z9XbSmUkC7J9UjHwp3MEW vrFnqMJ0gO0Od EDLrmnjvayjwcEA0CTKqV AAqqF24lJXwXHsaAh4gk9 V1d330JAJwUFZqpE71Fw7 udDogMTBwdCBU uK2eljxsg8nmkyvqIfJzQ XMpZWn8FSj0ZPAwoAyoFj NoHOZ2OuW0NKP3vZZlfC7 xgRtsfyfcvD8b Oyc+I53vlU6jGTQ4WUX1s nabHZOlvgUxXA64JK03X1 RyPjwvdGFibGU+PGRpdiB ldTdzKP9mNhJd u8ftl3BoAHrlJ3QjGXAlM DsnRgz4KOXgWAH9iZS6uF 9cCVMnETszd5I3jTP9F7Y okxPwjy9nt7xs CBHaXJitQ90kzZOgn0D1V RHkoOO5VTFbiSmxJyPtpK 93Oyc+ORHenUjgw3RwHoe vk9uuk3orsAa3 KyFkSWAeywKewIotUKV1f 3DlFv53Q45iEIdnQNPfTA FwAFRfODDgvBrwsm0elB2 wIi8+PGNvbCB3 dMR0kW9lIEAhLbW3UDtkJ 353WzFlhXMzRwive2yuz9 bxlIm9MlTbUTOeylOmxWi bTMG8q5IeDe21 S41uEGpgPDOkHFQaNFAwE OMtwLeovm3rtX8rPh5+PC 7gf4yxhi03pM55sCU+PHR fDVW4yVtfJIrd YWLjoH4cGEbjYgH1EPMcS tWxmU97tQScIOhaXq3puY sxkYuvTW4dATOuwgycv30 1ZiOtv3iyNLQp dZHkPVurLWX3Q50vp2V5N EFxVNJlZBW8qYP7lB9dtY lnbjogbGVmdDsgdmVydGl yMNvfGGqdN728 IHRvcDsnPlBhdGllbnQgT iDbEPw5D0ZkWss4FBCblN ttVS7jrYArCBpyTk3voHf sbTouVZ1xNYLo vncwr455SsLlg7opBSKhr MLiSGttFQP2B58dk5J3YV PzUZCcEHU5mJK2aE7clGm nbjogbGVmdDsg vgEqmGxlEYdbBVawF526P HRvcDsnPkJpcnRoIERhdG M0MR93NU36gZWnv1N9kIA 1O0JaQKDncquk bclraRJ3ONXbRKJgjW31E j1fjNlgQd9kXGNhWCD0IO BxzOZyU2YjtV1zEyMvEFB jREFpL5EzsELs OAbtA641RStwMkY4OHRtk tPnT2QcCRDxnMcqEoT1u0 G3Rp5NX7S5ME10VY08wLW th8B4xXD4F3Nf AHEhpqfwxfusnAG3XDBuZ NEapE96An3dzYesZe5pLC YdMEW8BFEbdQTdQ7XgpO5 yOiAjMDAwMDAw A8EpgJUzVLmcZ472MKufF lN8VAOnglDgV3JlXQWyqM tfAgX4x9Q0Uu4SBUn8OV7 2JC30mVCnd0W6 sDP7R3DvFGHrdsgofgzje MY2ZIEpIPNlkC01Ne7gyH wiQj4tEITsSCR5BLIcxGW zY5UpcS6oSuBu GHZzWHUfM3RpiACqGXkiN 057JNeuAuN1FFTwygUuE4 LmHVWfrRrvEwT9c8W0Dj5 JNDKuTO32SFL3 wXI4BI91FQ80U7PcVbwhz GFibGU+PHRhYmxlIHdpZH RoPScxMDAlJyBzdHlsZT0 sVs5mVXXgRTEb yNvecPZvKaUwp4qjHHBdK GqkGK7vaErbK9CtpTF6WN Erz6p2Lj75X50uT0DywAL +KREgmJP0gZA9 nF6bLoIbCzW9MMzpN460D dWjxZBlWmxup2shm6yxpQ r9DxO8RZTvawItyIzhICS 1c4VjVk12D19k IHdpZHRoPSIxNSUiIHZhb Kkbdm6ktB8mQo1+PGNvbC C3rJJ0uZ3aXvBbZlE9PJy fH682DvKuxWMv Wmzhh5rkf1vwnOw7SkNaL QEbhvEthZkjOZK2d7AzNt 98I0RiuZpqc3LwUop2lm4 1rNIqj8Y6dXS9 S5RgVIOugtillOMbgXuhM X3yNWVkcgjpFTGlnT8dAY XnW2x2SdObZeJ3UCcyB6I nilN6GSYmtBUb DMriEVU5S14un9P7OBPdL USmHUO0bFJ7lX9qpLkhqp ogbGVmdDsgdmVydGljYWw mOHjiT125KODt rIqwCSKnxX3fKIUgaMGxw WhpBH8eBHBzyfnsGcFTFd LGAzZAIJOED6cGXcTTTM7 0JV14bXZas7A6 oDW0V2QyUIQxtkrrdurtw NJ5HVRlFVUrtV16nDWhQS geAh1rg6Q4h757TIXlSAS ezH70Iv6qpAls UAUolJVJbU0nnqcau4rgc hnkFeDmEZZjJSu9KRt4HO RweArxUvXcOAS6RbV3PHS 7uIUjrI1roJat bmamyJ4wVfd+MDkvMDMvM Mw6JdlugFK+NBFfFEL5hR sxQXdmUKHhvE8sRIQsJ7l 8BuDdBwA2VUiu Y6YiCTRemfabJx83aF3rO kInPbD8CXbuP1ArnpK0NB VwrYPcSEcpWEO8R00gi2O 8AFVqYZPyJJF0 jFU0jH8avOqcojjnfWEgc DsgdmVydGljYWwtYWxpZ2 91WTEayMrcQfL0DOunUTC pIO27VI84zWQt b9R1lLM5M5QtGDHfvsjus folsGZ2ZKBeBLAvfC64qE DjKDqbFd2uz3Z0w579JLN yRWHgyB90Ow2v fFieYZNrbBYTsJ3fgfixc 2zkrmboJbYvAZBzNIo5OE p7OXMnnGzcSjEaVLA4RdB 6ANT2iKXsjT9e oJspqvnipS1aFml+TWFsZ TwvdGQ+LEQfUSX8cFohUV mmPZUxoB7yBEZrN9w1NlQ qBiT7VVblO6Ex WLPgguiiHx76eO6gPzZjL iJ7CCcnK6CpdeL8XEBrmU OgPMxoXJN4T71ug2Q4VGB rHRIoMYE4tJL7 oL0duJdyfbnraXRvhQqvb pUjeZoiUJkdEEgfN672JU QgjJsgQa77wHXkiZlahxG 5G4NqGpiylPR+ ZA18SWPjRH57uDWhbNSqe 6zwbGx6RaQqNQNyTLZ2qN fzXUlpr8ZyKURqQ25dyMD kz2N0QAIndOgd wNBeLlPsnPS8rC3eNXebn rdaw9tkcabnAmdyj6ztmi 79hN29E89cMOhoJUKpNCT zMCUiIHZhbGln rl1mmS3fYi3+WMEliUV5k WK8nX7iJcXfPtA9NKepI7 03ToGnpUAsYysqo2sdg0j blPw3AoXqJZXe waVipRkrDMQ0o5HlRv81L 29sIHdpZHRoPSIyMCUiIH DrpJkqab2hqQ6sIo0+PC9 su4qnsj93uX26 dHI+THKhGRN0iEtoXKabH OKadF7wBUyeOsC3YZCfPq VrqD87oZTmXUydJf7ptVl evRreBD9kMYZv accuy409SyOmz4rsVQEgp XTlILirXTS8D29yd5J5TF SePVQkTQH4oCZ6nT2xuBx nbjogbGVmdDsg boRgnUrvFPknDOciE493Y VIcqXjmZrMamEGrZ1tshf XAPI4zAqoslSD+PHRkIHN 0eWxlPSdwYWRk mG2jCVAgB2o8FnXgDrH6Q WsgK1WigbM4GVBulMCcXB CzsLKAcB8gxpzuo7bsaek gIzAwMDAwMDt0 GGi0VNVfmOmsDoXtYZS3S kI0MXW3gLOjgM7rqFjtcm lgbM5wGqj+RklOOjwvdGQ +MTQtGPO2hFgx FMsrIRXrwV4iJWOlF4v7P wYeAmX5AHyfT1FgthN5IF ObhEFzOSJliUQKyX6xxxq tr5kshwjrCbZh DCFhMGg4NTg4VDDouCgpP fImTBL8IdK8BYH4aAHtaQ 1zyZyjkxivrU3sBay+TVJ OOjwvdGQ+PHRk ZPN5hPqbSYvzUBJwuS2tX ANkI7f9MyMrLmQ8XGasT9 LmwzQ3NTTxzDThZTMrkZA IpY2lwntwe5kv tqraSnLcXPYlBUc6TYj6Z IZvxJclWxUpKJK7HlI4RF L2pBCtcB3rsRzinajwvE5 wOyc+HBI4DPF9 TJ33SD50K5ByAgqmxDKbj +PHRhYmxlIHdpZHRoPS jjGRXaEgKivGomYS8pOv0 yZGVyLWNvbGxh cHNl (more content not included)... Normal [facility] Coding Summary. [id number] G h0bWw+PGhlYWQ+BZ3RCDS nO27etRRdaV1ID6fTKX1X CEDETEWDNE8JRX5zuLO6A MaaK9SbrtUo QrqoaNXlJY99TRr6RTU4d LcjYBdokN7foJHiS4p2Ly KuKR53pW66MRzvFNVtKzK 3LjZpbjsgbWFy A2rbJzXusAWwXyh+PHRhY mxlIHdpZHRoPScxMDAlJy XeqUgyXV5vDi3yITGwASZ vbGxhcHNlOiBj x2dyUSXySTlpYY2vjSxaK 4IjeMV9ANMoy2b0Nw88rY I+OZNxEPF6dFbxEQzgi13 8OoDwk8fjFCI0 yNShOBvbNAE7K82uo6Z5B QRaRESaFQK1nPK5hA4lwW stevwaA9VtzGLmTnU1XQQ 1yOPreE4ciQly wezwnQ2lZmx+S52LYT9EC EKUMS8XDbh2L6BwWxshzV I+DL44VAViAT38oBBgjEK lr1brrTl0DwUd RRWbAND1uAjhHJhsk0UoX VWbC88sjJLzl0E3WNKsnF cpxSNsShEzoIK3qU7eFNd nkoyvj3krxopn Gzcvx3oaox58eU87R00bH ZjgBMOnYJQ4FGUsIUIubY hqea6shD9fFg1+JGqtc5h qv7swfCn6UiYb ISMdjxXgdNjnXVP5n0FwV x77Z2IjmMhsy8KwXhe8ap 14rSTfh8M3nUD0KMgiMVU adQ1iAHzgBnO0 ZTKaSzYuiR14aLJuAQcvV o3sdNqusZwgYC7fMAQqel ylECAqbH4wQGIhjPEjhMa iRN5qXWBahcoe o745TgDuACS8SGMslIRjO 6HgwX3pXtLsEVSxTAIeE7 RkaWPgHBpmZ662BJqpIqN 9BJDxpmJlF0Yk AQPkyKfoQeA3j4Y2Ph7Rx 9HxqvnbOJK3KHfhNBN7Re X9SsCmPhC9R0QeFrp0RZH jjZzpKT0wF8Fd PNFxjijlbjyvqUE7RPWjI ZExyT85jFLfMWtsQg9la9 K4h090FGYzKFWpuA11Ni1 udDogMTBwdCBU iZ4kunyde8xrfvttFfEsV MEvFEa6JBy2ZOLokAhcYc YySBN3NzS1KHU9xTUvlC7 hqCnautfctN6d Oyc+N78dbL4xZSG9KUX8t hhdNGGfbzHfRF52MJ57X4 RyPjwvdGFibGU+PGRpdiB itZzpFJ2mBmDp y1lcu1IfZRdlI6BfRUYyX FnnUnv9YJUlSGO9lCF0gS 3nAOHzSRyzt5X6kPH1N4E auaCtnd0dg1as INCzKAdhF14djFBwl9P2V NGozDT7VEIitCzoYxMucI 93Oyc+MVKyhEnew8NoPbo ym3jub0bmaFu9 RrKrYGJdicGcyHwbQQM0w 0ZzRx29V97mOQopFXXsAM WoXIGsCTTtuMutvb4yaZ7 wIi8+PGNvbCB3 kRO1cD4zTEAlOfB2HEphK 076PxVdaHAyUsdrm5crg2 kctEp7BmNpBDWbbcMwoFz wFUN7q1MqZq90 E85uOGwrTWVaLAAaUNIcS LBgiYgfve5opQ4qXw6+PC 0rl9luyj08uD67uRT+PHR oKGZ1eSthSKam YGKowQ5cQGglMpP3PGQtX qEyrX56pHArEDxxPr8ekU ojkHhrKV6vCFVvetrqf11 2XnEra9cySHMc vHYcYRzlLSU2O71it4F1Q OKrJWEsCMG3xMJ3uF0ntB lnbjogbGVmdDsgdmVydGl gCPtxADabA366 IHRvcDsnPlBhdGllbnQgT hCmFZa0M4RxEaj3NQTviN qqAR6ljYSjZIogHo3yuKv qnPvqUP5zSQEe mogqh187YzGrf4xgXXBzi KMfPOzpYFH7E93tn8O3WK IxXHFnFRL4pED6mX3fvWb nbjogbGVmdDsg ikMqkCqwYDhuXIofN043K HRvcDsnPkJpcnRoIERhdG O3IS38RU44dBSqc8C4cUO 4L2DnFGSfeays xxgjiBB1ZLCyHWGojX95N h3ogRacVd8pMMIoKLD4PS XjjNNaH9GejP2eLsDfLNB mVVNrL7RveDWt FZzrJ476YDwaSjB8GTMtt iCsD2OsOJKsyMgkGxA5b2 Z7Tv1FT5R7OH95IY03nDQ fk1E4kZC8D1Hs KUMlrxfhidsmsGD6NKHuH NSexZ63Lz8dyKcqPr3hSU TqQPV4ZFFatTApQ6FktC8 yOiAjMDAwMDAw A2EmbTSsLXfrT265YHrmG jM5PAGsbrFpH7MuCSMdaE vtBpY7z7Z3Zy6QWMk9MG3 5AQ73cEZhe6Q0 dCA6V8GgXRZsalihlrkmd GD6GNGiYRFkkR59Fi8mxA imSh1eSREwKMS0TLByeSN wQ9JqtV9aBzYr HEYnRHVvF4BpwJOfRTheP 046EYggYlM9NKSjwcYzA9 UhAHHvoVitAeX5g6Q2Vv8 AGLQcNG01UKT3 lDT8HD78HX23M3GfOmokh GFibGU+PHRhYmxlIHdpZH RoPScxMDAlJyBzdHlsZT0 oKe3iFEFrLZQg hFnezPTvCdNss9kmIOVpE VsvBP6pkRrwY3SmkAG9US Zss3c7Gl02Q55eL9NgjOC +KDCrmUU0pTR0 jW6rEoYwPsF1YFyqI540C tGmxHDmPhple4peu1mabQ w1FmO2ZEUgfqAirDrfIPS 9f4BoVi71G69k IHdpZHRoPSIxNSUiIHZhb Thkck7ovV9mCc7+PGNvbC U8nLG3kE9fWiTgIuF7AQw yV494AbGygTJv Vheby3jgh7xuqHv4DpNiN BMricAsyXonVDZ8r3LhFw 97X7IttJxlg4SvNjt4bh4 1eUMga3R4iOJ8 G4DhEEBefoxpcKYbbPedH S7jXSJzsamrKZAypS0lOZ XwL5l7UiDlOeX8JQlaU7S cvtQ1FVLozPDc ETjwNQG6A21cl0O6VXYlE RAcSXK6qDB5fU8wuVtaeb ogbGVmdDsgdmVydGljYWw gVPqzM823FLQe tZzcJAOfgD8tILRsrUBss VrfRO6zQFSxiiurJlDIDd VCLaTUFSVRP4bLUuRSPE8 8PV72sGUyt8I6 wRD2X8XgGPNdcdeksghbd AT0NJHpWAIqoK99yGJqJG okEi7ry0O0p806IJUdFKO tyJ99Lg1ilWpf ETEliOZEvM2ghgbjr0xqq zhiMzKfCHNuOFs8VMb1IA YvjOxwRvZcPSA0VbE6CQY 4kYUhjB3wnNll oqxwvI2iTht+MDkvMDMvM Uq9OrhiwJJ+ROClYRL0vV feGAkpOAPfoL3eXGKpV1t 5TkAhReY9ISou V0SpYECdbpbiJj66wT7rR rHcCpG8GKsxI1JiptD1HE NisRDqIZrsFRI7H68lj9C 0ZVIpXVTpSDT4 hRV3iV0wlMarmmkghFQmx DsgdmVydGljYWwtYWxpZ2 34RCMigDuwHxN5TAvkLCE jFF70KY03iIKr y8D4zVY9N6IvOCRhiynnu dhaqHQ3ZBQdWCKkrA98jP QdQAohGo1rk6Y3z223IME vUGEaqN69Ll6o iBirAJCraSTBfI7fksvrw 8oafvzjKnLgJPHjQHj1TY s5UTYddErbVzOxZAC0HoD 8MPA0iHLlvK3b nBilndfabC9sGry+TWFsZ TwvdGQ+CXUqUEX3fVsiXD khCRLiwP7aWAMgV4h8IbL cTtI7CYrpS9Nf CPSxhaxaZm10jE7dYlOlD mI3VUunL6XtpyO1JWCwxW WoJSpxCON8I19mc0G0LGX iYJRyXAP6lRA4 oT4roYppjuruiPYdgXpxr aXtgZnwWIdfOJitJ829CK PdpKrvXgLiRWIxXM2vrGv vdGQ+GP74up96 B5LoYwzfBon6OWKsSYQ9w KS3hL4fWEWuXFytu3Z2yD Q4X8VamuEkog8qs3cvCID gAKadP86anVCr s9T5XYGaqYI6FBNczQvsN fXduZ89Eex+PGNvbGdyb3 BwAqare1aax5smpAl8NjQ wJSIgdmFsaWdu FOC1o3ObPq71I34wCXdeE HRoPSIzMCUiIHZhbGlnbj 7lkL7pEa7+TKMyyGA3vIW 1oC0nTfVjUuV2 TZcyJ690WfGstTLiYcuqb 1oqc8byoVi3YoCvVDCkhh KflIwaHGE4x8GiEs05W7Q haRbgj4SnJcj4 wl17nSNaw4M6rCS9V1LyJ AGaxqlgnNLkfMjnYF2hKS GaoyplUFXfrU8zIGTaM9m 5GvIkOzK0PIxs O0RephM0BEGjnCSdXWPsm LYIzU6wonksx4edsxhhWd TmXOJvKQm7BBv4LESwjYu sVbQtHYF2IkL3 WDS5fVVxgJ9ooNybfoajy G9wOyc+BCo5a6dezBChTW 9eqUI4IO66DX41sYTfd1V 9kXK6P7GtWYPp tnyvezfatTA2MGLuAEJsu W68Iw2ybKbaNa1zWMVsZS B5XJYazDXiA9ShdC4zTdR pGXMcPDIrC7Xc wZFaYIzhV356IGzrKzR4I HGairOfD0XwXCBajSsmZr D6a6O3Ev9ZJC13BM08ED4 8mHZzh9P3jFK6 R7ZpFVRwmlmqmcfnmMW9E NMqLTFavT86Fj4bzGcmUq 8iOHGaUXT5DTDwuIDyF2M npK9qLgYbXNYr GRSwD2UesPMnRIliI714Y ZxrHbW4MZJchnMrJ3LzNI PypYulUoO4z1G9Tl2COj7 4KK86OV10xWYb e2U4qZY0Y3UiTGEzciupp mhzxDU6MXOaVLKdfR80Pj 2ssNtcSb0cMQOpCQT9OOK kcOIqI4DkaE4p LxZiAVVrBPBzY3WkdJOmT MdzJ568XUiiCpT4NKBnqw MfY1YvFUWvfKdyVuL8u3E 3Er9KAAknyqy1 X2AlMckipFS+JE85UGTsJ A81pEJfvYLsr6cxdOa8Vi UtUTClQKP2iRehONvtk5H iMUJkR96yoDRq c2U6 (more content not included)... Normal [facility] Consent for Treatmenton Consent for Treatment [id number] .00CD:[address] [facility] Discharge Instructionson Discharge Instructions [id number] 1.00CD:[address] [facility] ED Clinical Summaryon 2021 ED Clinical Summary [place] [id number] ED Clinical Summary Person Information Name: MANNIE JARQUIN [facility] Age: 66 Years : 1955 Sex: Male Language: Cymraes PCP: ADRIANA MEJIA MD Marital Status: Phone: [phone] Visit Id: Visit Reason: Ear foreign body; [...] 01/06/2022 08:25:56 01/06/2022 08:25:56 01/06/2022 08:25:56 ADDRESS: [address] [place] [id number] [facility] DOC NOTES: MEDICAL INFORMATION: Prescriptions Given: New Medications Printed Prescriptions ciprofloxacin-dexamet hasone otic (ciprofloxacin-dexame thasone 0.3%-0.1% Otic Susp) 4 Drops Right ear 2 times a day for 7 Days. Refills: 0. Medications to Continue with No Changes Other Medications acetaminophen-hydroco done (Lindale 325 mg-5 mg oral tablet) 1 Tablets By Mouth every 4 hours as needed for pain. Refills: 0. PATIENT EDUCATION INFORMATION: Instructions: Otitis Externa; Ear Drops, Adult Follow up: With: Address: When: Elizabeth Veliz [address] [place] [address], [facility], [address] [place], [place] [id number] Business (1) In 3 days 01/09/2022 With: Address: When: ADRIANA MEJIA [address] [place] [id number] Business (1) In 3 days 01/09/2022 DIAGNOSIS: Otitis externa Normal [facility] ED Note-Physicianon 01-07-20 ED Note-Physician Basic Information Time Seen: Kirill Simon DO 01/06/2022 08:06 Chief Complaint pt had a beetle fly into his ear, states he was seen at [facility] and they flushed his ear with lidocaine but they did not remove it. pt here today because it hurts. beetle is in r ear. History of Present Illness 66-year-old male comes to the ED for evaluation of right ear pain and concern for foreign body. He states that beetle crawled to his ear last night. He was seen at [facility] where he states the squirted lidocaine [...] Veliz In 3 days 01/09/2022 EDT [address] [facility] [address], [address] [place] [address]- Business (1) Additional Instructions: ADRIANA MEJIA In 3 days 01/09/2022 EDT [facility] [place] [address]- Business (1) Additional Instructions: Patient Education Otitis Externa Ear Drops, Adult Attestation Patient seen and evaluated by the physician bilingual medical assistant. Attending physician was present in the emergency department and supervised care. This visit was performed by both the physician and an APC. I performed all aspects of the MDM as documented. This report was transcribed using voice recognition software. Every effort was made to ensure accuracy, however, inadvertently computerized powertrain control systems engineer mistakes may be present. Appropriate healthcare PPE [...] 0.3%-0.1% Otic Susp, 4 drop(s), Ear-Right, BID Lindale 325 mg-5 mg oral tablet, 1 tab(s), Oral, q4hr, PRN Allergies No Known Medication Allergies Social History Alcohol Substance Abuse Tobacco Lab Results No qualifying data available. Diagnostic Results No qualifying data available. Normal [facility] Comment on above: Result Comment: Elec [...] 06/11/2002 Document Revised: 05/30/2018 Document Reviewed: 06/20/2017 Elsevier Patient Education ? 2019 [employer] Infectious Disease Otitis Externa Otitis externa [...] even if your condition improves. ? Take xyef-tmy-jynqgsg and prescription medicines only as told by your health care provider. ? Avoid getting water in your ears as told by your health care provider. This may include avoid (more content not included)... Normal [facility] ED Patient Summaryon 022 ED Patient Summary [address] [address] Patient Discharge Instructions Person Information Name: MANNIE JARQUIN Age: 66 Years Arrival Date: 01/06/2022 07:57:27 Discharge Diagnosis: Otitis externa Primary Care Physician: ADRIANA MEJIA MD Provider Information Primary Provider: Kirill Simon DO Advanced Visual Educator:Ramon Gauthier PA-C The exam and treatment you received in the Emergency Department were for an urgent problem and are not intended as complete care. It is important that you follow up with a doctor, nurse practitioner, or physician?s bilingual medical assistant for ongoing care. If your symptoms become worse or you do not improve as expected and you are unable to reach your usual health care provider, you should return to the Emergency Department. We are available 24 hours a day. MANNIE JARQUIN has been given the following list of patient education materials, prescriptions and follow-up instructions: Follow-up Instructions: With: Address: When: Elizabeth Jose Alfredo [address] [place] [address] [address], [address] [place] [phone] Business (1) In 3 days 01/09/2022 With: Address: When: ADRIANA JACKIE [address] [place], [place] [phone] Business (1) In 3 days 01/09/2022 In the event that this physician does not participate in your insurance network, please consult with your insurance company to find a nearby participating provider. Patient Education Materials: Otitis Externa; Ear Drops, Adult A MESSAGE TO ALL PATIENTS REGARDING OPIOIDS PRESCRIPTION OPIOIDS: WHAT YOU NEED TO KNOW Prescription opioids can be used to help relieve cxcikjeh-tw-zrrifb pain and are often prescribed following a [...] you may (more content not included)... Normal [facility] Auto Diffon 01-03-2022 Basophils/100 WBC (Bld) 0.5 % Normal 0.0-2.0 [facility] Comment on above: Order Comment: Order Added by Discern Expert. Performed By: #### 1 [id number], [id number], 5151415, 8505525, [id number] ####[place] [address] [place] [address] Basophils/Leukocytes Auto (Bld) [Pure # fraction] 0.0 E9/L Normal 0.0-0.2 [facility] Comment on above: Order Comment: Order Added by Discern Expert. Performed By: #### 1 [id number], 3172631, 1130312, 7575657, [id number] ####[address] [address] Eosinophils/100 WBC (Bld) 3.1 % Normal 0.0-8.0 [facility] Comment on above: Order Comment: Order Added by Discern Expert. Performed By: #### 1 [id number], 7514662, 0530582, 0100539, [id number] ####[address] [address] Eosinophils/Leukocytes Auto (Bld) [Pure # fraction] 0.2 E9/L Normal 0.0-0.5 [facility] Comment on above: Order Comment: Order Added by Edgardo Expert. Performed By: #### 1 [id number], 3580199, 0846741, 6885099, 08694155 ####[address] [address] Lymphocytes/100 WBC (Bld) 19.8 % Normal 14.0-50.0 [facility] Comment on above: Order Comment: Order Added by Discern Expert. Performed By: #### 1 [id number], 5425320, 1189986, 8094269, 65685518 ####[place] [address] [place] [address] Lymphocytes/Leukocytes Auto (Bld) [Pure # fraction] 1.2 E9/L Normal 1.0-4.0 [facility] Comment on above: Order Comment: Order Added by Discern Expert. Performed By: #### 1 8041567, 1584217, 2082468, 0358376, 06531231 ####[address] [address] Monocytes/100 WBC (Bld) 13.6 % Normal 4.0-14.0 [facility] Comment on above: Order Comment: Order Added by Discern Expert. Performed By: #### 1 [id number], 8934742, 9195221, 9102514, [id number] ####[place] [address] [place] [address] Monocytes/Leukocytes Auto (Bld) [Pure # fraction] 0.8 E9/L Normal 0.2-1.0 [facility] Comment on above: Order Comment: Order Added by Discern Expert. Performed By: #### 1 2929198, 9514864, 9572579, 7532308, 45846309 ####[place] [address] [place] [address] Neutrophils/100 WBC (Bld) 63.0 % Normal 36.0-75.0 [facility] Comment on above: Order Comment: Order Added by Discern Expert. Performed By: #### 1 9989650, 8507122, 3349424, 3109659, [id number] ####[place] [address] [place] [address] Neutrophils/Leukocytes Auto (Bld) [Pure # fraction] 3.8 E9/L Normal 2.0-7.5 [facility] Comment on above: Order Comment: Order Added by Discern Expert. Performed By: #### 1 7769906, 1747226, 6841705, 9575944, 07083756 ####[place] [address] [place] [address] BMPon 01-03-2022 Anion gap [Moles/Vol] 11 mmol/L Normal 6-16 [facility] Comment on above: Performed By: #### 1 0942042, 9684542, 6905796, 5826640, 11761738 ####[place] [address] [place] [address] Calcium [Mass/Vol] 8.9 mg/dL Normal 8.9-11.1 [facility] Comment on above: Performed By: #### 1 3629761, 6870600, 9367355, 6930019, 83750034 ####[facility] [address] [place] [address] Chloride [Moles/Vol] 104 mmol/L Normal 101-111 [facility] Comment on above: Performed By: #### 1 5764650, 3390053, 3574229, 4081714, 56689437 ####[facility] [address] [place] [address] CO2 [Moles/Vol] 28 mmol/L Normal 21-31 [facility] Comment on above: Performed By: #### 1 0165528, 9110454, 9369715, 4651035, 78308602 ####[facility] [address] [place] [address] Creatinine [Mass/Vol] 1.3 mg/dL Normal 0.5-1.3 [facility] Comment on above: Performed By: #### 1 0360404, 2075414, 6784263, 5215413, 04478888 ####[facility] [facility] [address] [facility] [place] [address] Glucose [Mass/Vol] 102 mg/dL Normal 55-199 [facility] Comment on above: Result Comment: If t his glucose result represents a fasting glucose, interpretation should refer to the following reference range: 55-99 mg/dL Performed By: #### 1 [id number], 6366915, 1845168, 5867394, [id number] ####[facility] [address] [place] [address] Potassium [Moles/Vol] 4.6 mmol/L Normal 3.5-5.3 [facility] Comment on above: Performed By: #### 1 [id number], 8920245, 0564942, 8270176, [id number] ####[facility] [address] [facility] [place] [place] [address] Sodium [Moles/Vol] 138 mmol/L Normal 135-145 [facility] Comment on above: Performed By: #### 1 [id number], 1907207, 5362100, 5536313, 27471614 ####[facility] [address] [place] [address] Urea nitrogen [Mass/Vol] 22 mg/dL High 5-21 [facility] Comment on above: Performed By: #### 1 1037675, 8377038, 0287488, 6588261, 22280739 ####[facility] [address] [place] [address] Urea nitrogen/Creatinine [Mass ratio] 17 No Units Normal 10-20 [facility] Comment on above: Performed By: #### 1 1432966, 4398401, 5732560, 3188003, 88615033 ####[facility] [address] [place] [address] CBC w/ Auto Diffon Erythrocyte distribution width (RBC) [Ratio] 13.7 % Normal 10.9-14.2 [facility] Comment on above: Performed By: #### 1 6652444, 6105408, 9344221, 4502053, 50773309 ####[facility] [address] [place] [address] Hematocrit (Bld) [Volume fraction] 42.1 % Normal 37.7-49.0 [facility] Comment on above: Performed By: #### 1 [id number], 3054575, 8680759, 6743070, 67683239 ####[address] [place] [address] Hemoglobin (Bld) [Mass/Vol] 14.3 g/dL Normal 13.5-17.5 [facility] Comment on above: Performed By: #### 1 8333032, 4781349, 2438853, 1927631, 00287282 ####[address] [place] [address] MCH (RBC) [Entitic mass] 30.4 pg Normal 27.0-34.0 [facility] Comment on above: Performed By: #### 1 4731423, 9149043, 3316011, 7475311, 85934732 ####[address] [place] [address] MCHC (RBC) [Mass/Vol] 33.9 g/dL Normal 31.4-36.0 [facility] Comment on above: Performed By: #### 1 5204525, 2754207, 5876957, 8562708, 01770022 ####[address] [address] MCV (RBC) [Entitic vol] 89.7 fL Normal 80.0-100.0 [facility] Comment on above: Performed By: #### 1 7394819, 5526367, 3733559, 6579066, 02790721 ####[address] [address] Platelet mean volume (Bld) [Entitic vol] 10.5 fL Normal 6.4-10.8 [facility] Comment on above: Performed By: #### 1 1546659, 2314323, 1307194, 4868601, 51392382 ####[address] [address] Platelets (Bld) [#/Vol] 240.0 E9/L Normal 150.0-500.0 [facility] Comment on above: Performed By: #### 1 4045552, 7698195, 9696729, 8592134, 22209097 ####[address] [address] RBC (Bld) [#/Vol] 4.7 E12/L Normal 4.3-5.9 [facility] Comment on above: Performed By: #### 1 4185931, 9924260, 2659188, 2912615, 35247441 ####[address] [address] WBC corrected for nucl RBC Auto (Bld) [#/Vol] 6.0 E9/L Normal 4.0-11.0 [facility] Comment on above: Performed By: #### 1 4009903, 8750997, 9023809, 4401186, 42461303 ####[facility] [address] [place] [address] CHEMISTRYOrdered By: SYSTEM SYSTEM on 01-03-2022 Anion gap [Moles/Vol] 11 mmol/L Normal 6 - 16 mEq/L [facility] Calcium [Mass/Vol] 8.9 mg/dL Normal 8.9 - 11. 1 mg/dL [facility] Chloride [Moles/Vol] 104 mmol/L Normal 101 - 1 11 mmol/L [facility] CO2 [Moles/Vol] 28 mmol/L Normal 21 - 31 mmol/L [facility] Creatinine [Mass/Vol] 1.3 mg/dL Normal 0.5 - 1.3 mg/dL [facility] GFR/1.73 sq M.predicted among blacks MDRD (S/P/Bld) [Vol rate/Area] mL/min/1.73 m2 Normal >=59mL/min/1. 73 m2 [facility] Chem S GFR/1.73 sq M.predicted among non-blacks MDRD (S/P/Bld) [Vol rate/Area] 55 mL/min/1.73 m2 Low >=59mL/min/1. 73 m2 [facility] Chem S Glucose [Mass/Vol] 102 mg/dL Normal 55 - 199 mg/dL [facility] Potassium [Moles/Vol] 4.6 mmol/L Normal 3.5 - 5.3 mmol/L [facility] Prostate specific Ag [Mass/Vol] 2.0 ng/mL Normal 0.1 - 3.5 ng/mL [facility] Sodium [Moles/Vol] 138 mmol/L Normal 135 - 145 mmol/L [facility] Urea nitrogen [Mass/Vol] 22 mg/dL High 5 - 21 mg/dL [facility] Urea nitrogen/Creatinine [Mass ratio] 17 mg/mg Normal 10 - 20 [facility] Consent for Treatmenton Consent for Treatment [id number]#1 .00CD:[address] [facility] HEMATOLOGYOrdered By: SYSTEM SYSTEM on 01-03-2022 [...] 240.0 E9/L Normal 150.0 - 500.0 E9/L [facility] HemeAutoSS RBC (Bld) [#/Vol] 4.7 E12/L Normal 4.3 - 5.9 E12/L [facility] HemeAutoSS WBC corrected for nucl RBC Auto (Bld) [#/Vol] 6.0 E9/L Normal 4.0 - 11.0 E9/L [facility] HemeAutoSS PSA Totalon 01-03-2022 Prostate specific Ag [Mass/Vol] 2.0 ng/mL Normal 0.1-3.5 [facility] Comment on above: Result Comment: The concentration of PSA determined by different manufacturers can vary due to differences in assay methods and reagent specificity. Values obtained from different assay methods cannot be used interchangeably. The methodology used for this result was chemiluminescence using [employer]'s Access Hybritech PSA reagent. Performed By: #### 1 [id number], 6196155, 6113646, 2810034, 61676387 ####[facility] [address] [place] [address] Physician Orderon 01-03-2022 Physician Order [id number]# 1.00CD:[address] [facility] eGFRon 01-03-2022 GFR/1.73 sq M.predicted among blacks MDRD (S/P/Bld) [Vol rate/Area] mL/min/{1.73_m2} Normal >=59 [facility] Comment on above: Order Comment: Order added by Discern Expert. Result Comment: eGFR is race adjusted. AA=. Performed By: #### 1 [id number], 2501150, 0211372, 9685150, 98224963 ####[facility] [address] [place] [address] GFR/1.73 sq M.predicted among non-blacks MDRD (S/P/Bld) [Vol rate/Area] 55 mL/min/1.73 m2 Low >=59 [facility] Comment on above: Order Comment: Order added by Discern Expert. Result Comment: Account Auditor asia kidney disease could be indicated at eGFR's of less than 60 mL/min/1.73m2. Kidney failure is indicated at less than 15 mL/min/1.73m2. Performed By: #### 1 [id number], 0391864, 3494216, 3690167, 74193832 ####[facility] [address] [place] [address] Coding Summary.on 10-17-2021 Coding Summary. CD:[id number] G h0bWw+PGhlYWQ+MI4JDNK aI02xmGMooV1NB0zCBR5V PEHJTQYTQH9ASO3lwSM9C NdsJ6JvgqLw AsbugLIhNF32CVo2GMR3w DhqMQeppY4snQHxI3v5Pp OdGN78iH19QJnwCSJdAxG 3LjZpbjsgbWFy C9aePlJgtWXpIwh+PHRhY mxlIHdpZHRoPScxMDAlJy WguBzyZF5yVd8tRYBtBNX vbGxhcHNlOiBj r7nyKNPgGWwkEE5irCyzX 7OsrXY9GBFua2s8Bp34fE I+KETlQYI5zNbcCGulz87 1ElSwe5lxECN6 wZDfSYovCOW5X40cj9Z5P XFfWVNgTJZ0kNW6rM2paZ rmvysyP6SvzKFoQoB8LCL 3kVGtjK4ncBpd rmlfoZ6jNpj+T81EOH3UC HAMCL5ZIza5B9OoFnotoK I+AO33AJDrQL36lVExcJZ bg7jvaPn8SkTh HELnNWB0iFiyCJwxy1AmD HUpT79mhXPgr9S7TNIwkF ocjLPjKkAlpNQ8yX5yHPh tvzgul6sasvqm Hcmla4lpoo18kH91O33pA AhyEDJfXLB4QEZgGHGhhB nwxi3kfP4fSe5+XRymr4l fa8uqyHk1XaIf RXEvslSlnXkxCSP9f2AmO t52B5OkrTdwp9PbNwq9pc 29bXZmn3J3yPR3NPyiFDX srK6nCVxeRbQ5 GUXdTgZrcZ52jUEyBIqlO x7nsUlzxKbrRB9qFJRruc poLKEteJ3hIPDhuUYeiSq qYI1iAVIgjwjx z201ZbGhALR0CCVtyDSgI 2AuaX8yBqRgGKPdOZGnV7 BykUUsNUlgN354CRypNxC 3NTUamtOqY4Ps ZIGjdDnyMsI7u1X0Pa1Fv 3UkvlalLAU2ZAxzJNK2Pk O9SgPhCtF2B1JiDke7APO hhTrgTR9sV5Zy XYAhgukyrxlmbZP4RPNnU YGdrL86mHKlKYazIb2mn4 V9b340RWBnHFMehH56Tl6 udDogMTBwdCBU xW7xmmyge1tunvtnWcCyX CSuBCk0CQq0UOCtmEtaYu XnFRT8QwJ8OOO6dPLgyI7 uuZilfmcifO8i Oyc+N40reU6nKSN7NFC0d xarOUIicqHlIE23KV05P1 RyPjwvdGFibGU+PGRpdiB zwGruJX0eQvAb j2wqz2OrEJkaG9JxLPWtK EvnEgs5VPNzNCY7tVV5uF 5uDSZrGPyhj1S4nTH5H5L tdgEmjt5rj2bg MYIoBRfrD34jlUQgp2Z1C VVszAV4JOTlcVsaRtAjqW 93Oyc+PTRrzDxar8NcZde je5qil8iamFu2 GpWfTSBvjbWclXgbJLA5e 8AlIa01G88zGSkgNFJrCB VdUNPfQMSnePhcnb5zuU6 wIi8+PGNvbCB3 nNR8nV3mLZNtZgC4GRadL 190OcYuqMDhDubfd0hms9 gqySe0AnDhGJTvxvFyhQn yVYS4m3QrCs50 I47wSThiTZVzOXXmUHCsC EFccYqsql7ejC2lRe8+PC 5zp8puct41oJ14gIU+PHR cQHJ9kHjoDLra DMCtyK2dCWicCxG8LYEcM xLrjZ62dNHvATqrUl2spU kzuDruUP1hXZFgrqvke59 4QkVho4gjXMWu hWMtJMnwKRE7F42ji9H2K UWiLAFnEDN3lFG2cW7jkC lnbjogbGVmdDsgdmVydGl vFDriZSavL543 IHRvcDsnPlBhdGllbnQgT iTkYEg8B2RxGot7EWTawW ldJQ3bvCOkMMkxDp8ydSu jtPqyAC0fBJRs awydn547HjMjm2ncDNQvu HBeWLfuDZC2W72ef0B3SN VkKKDyWVH2zAC4zF3wpYr nbjogbGVmdDsg jtVcaItyWGygOGizA987K HRvcDsnPkJpcnRoIERhdG M6BN09BS11tFAkz7U5yTA 5G0JqVSOncqsm rocjoLM5MYDsQUVbyR60J w2iqIyiFe6aEOKeAEF6SM HepSGxY8OjwG3gUrNjZEW iPQFyQ7FggOBs LHdzW296MIibZtO7AQPyi bYzN6UkLSHshFyeBmW2x3 J5Pv7KI5G8NU45DI23oPT ox6U0iUL2W3Bd LJRbklobkmlkiHJ1UAFfT EQygD21Xo1buMseIp9qHU UsQFE7GGDtrUNwV4JfnL9 yOiAjMDAwMDAw L2OxlNKjYGflY039AVjkI eZ9BWPlpnFwB9BmLHTjsX fyXzQ3w5O9Qv2GTJy3GB2 8BD92lRPtg8P9 zZO1I3QbNEXtfgmtahtlg GA7HFLuQKBkoO80Xg4flI glAn6zOAVmEVU3JDZwaEU mU9YmqW1xYeVv EVRpONWtW2SomKUuOAviD 387OWwhZqL8GFYcoyVaC7 XkPPKhgRlvFtJ9d8A4Bw5 YUYZwQG22SPA4 bEU2HC09YT60N6ZnRkibt GFibGU+PHRhYmxlIHdpZH RoPScxMDAlJyBzdHlsZT0 mYd2sQRLiYOMj fIagaXEdBoThr7ilNLGrG TkeGS4ciGluT4KaiHJ1AG Oze8n5Lk12L53oC6VpsPC +VTDytMJ1pUD3 nT5rReCwPvG5CBzqZ315R rKssXVhChbqr4ziy6vucD m2GrE5CONuwyEotUzfOHZ 8v1MaDa58V89c IHdpZHRoPSIxNSUiIHZhb Hgixl1gjM3tBf1+PGNvbC J5fHZ1vU3mMpWuIyB5LTf zA076XuMpbDTf Jhxht1ubu2qnmCs3SuKnY CZgiyRnmVjeIOH8m9IkZq 76P7HgyLleo9NtJyl4bn6 0pGXjq2G6fPA8 S8KzZQVpzxgsvHOphFnpX G2xNGAbfsrlFAPvjV3zYI QuS9p9AbWiLuU1KCwjZ9G cfiO5SEUrqAIs KOgtMWI3I23ml3L3LRHrU XByFPS3aWR0pV4bnDktux ogbGVmdDsgdmVydGljYWw xNZlfG014TPBe fRvqODSsfE9vNTBkyLGdm SlqIV7cVOSkuphfDoNHIt WYWcTVIHHDE4cQVeBRMN9 2XW76eIYbf6B3 sCI1V0PwAPFkulryvayaj QB9LONkLRJrkK43eZKbKG uaIl3jh4P0h974SBZmFAC gcT54Sv7yaKmx MPEegRIDcV7andxqj2epi rwfMcHnBJIpTTf2HBj5WX OxlWibIuLuORW9VcM4KNR 2hGApdC4qyBbv gvyipN2vQwd+MDkvMDMvM Ry3NtzznKA+ZXUvECA7yQ szIYzwFETjhT5rXYQiC4m 5LwRyEtD1DUqv Z8LwYUDzugfwDs63mL8hD jAwOwO7QMpyU0XvmgJ3RV UhbHGcXFnoLGH8Z20tf9I 8KEBeSPKqNFQ8 gJX7iZ4obQdxcqbnwVVba DsgdmVydGljYWwtYWxpZ2 19JCJbmGyeUfU9TAzuYQM fPZ11NR98iZSh i9Z2vNG5P1AdFCXmpmfzt nnvnQU7ITCfOMNwoH27eE OwLZakNd1ye4P1n758MAN gIUEkjN88Ml0d qMvrWOBhcLEGrC0iiriph 2haydweFzUrLJCqFPn0XT q9TWPcxNfhXwKuUNW7JqD 1NXG4eAZhdE9k tPpdyjfpxY4nLjp+TWFsZ TwvdGQ+YCFyEWP6yOofSE wbHPGefU4cJITxA2m6WuE aDpT4JUhsQ5Lx IIZigfcjRn22sF5fMmOzS bU5ODipJ3TiraE7KWNelG GwMXmlHTT0F88ld3Q4LHX lPDVfYCT8iPH2 cF0osVeabhrlyLVapXgkk sLmzOhhZLmyCKwgW375QR GpwVvwKx94vZYukKvtlxF 0H0MvAfhcsUJ+ XB10CPHgLI84xBHxfGRcc 2iaiDw9NiCtSLKaFYI7wX lzZZrcp1XlLVGeP73udOJ gi4L9QPHgqBuo hVKpAzVboKC6iB9nGUwld afgx0jaapqmGtavj0iecv 23fI22E51qEUsfZSJkOQH zMCUiIHZhbGln us5jpG2jJs9+OACmeZJ5m KQ8pQ6aWxZoSlF2QZkaR2 17FlAdlIFxHgtan6ihz4z bqFd4ZqBeNTDt zqGuoFdkMOQ7f0IiUi65H 29sIHdpZHRoPSIyMCUiIH IlrEdrmp7wwR2uHt8+PC9 le7qclu32mV50 dHI+WMJmFZA1fZsxJDppU ZCkrL9lZWlbPrD4YAVjJr SaaF99uXDuEEtsQy6yqJb qeFnpGL7wTRVp zajlj223IvPqg2luGANqw DFzMSrwZJE0A05ea9M5NL EnSHErHOP5mOS7oJ8vcUw nbjogbGVmdDsg jpAmsOiyZGifPNcgK656V ESliPjqVvAxjRCbV4jsnl NIQD6zYxyijTO+PHRkIHN 0eWxlPSdwYWRk dO0kIONtH8z9KlRcXoZ7O VnbE0NirsU7GEMlySOvVI CumPFEmV9wuqgct0mgwdr gIzAwMDAwMDt0 EYs8TXMbwXxoEwVeEBF3Z eB0BVY6gDMmoU0hzFktca gieZ3eSvl+RklOOjwvdGQ +CRDnLXA6hAxn ZOhzUWNilO6rHLGpR8d6F lYyZrL2ZBhsL4DnjnB7TK EbtWKuEDUiaHTPpL8qbnv hs0iyjhvtFeTe BKPgQLv2JRx1EJDngOjaV kGrCBH8AiE8ABC3lTQceG 5ckKxeihtijS1lCrf+TVJ OOjwvdGQ+PHRk YST8aGguETvdNLFrcA7bD UCbG0b3IuNmJqH3TUxbF1 QhsvP5OHFekZEcITPjdPL NgD9qzponc8jr clzhKyNwOWDzZMj5CVt6C JGpqSllArLlFQM2WgE5XA C7vBYubU3bgRlokhxrkA1 wOyc+IXW7JHI3 MA04QF26Z0AnZqgqvQOcf +PHRhYmxlIHdpZHRoPS ogKXCbJnTfgHesHK5bDo8 yZGVyLWNvbGxh cHNl (more content not included)... Normal [facility] Consent for Treatmenton 09-29 Consent for Treatment [id number]#1 .00CD:[address] [facility] Patient History Officeon Patient History Office [id number]# 1.00CD:[address] [facility] Sleep Office/Clinic Noteon 0 10-09-2021 Sleep [...] Ramirez, PUL, LUZ MARIA Within 1 year [address] [facility] [place] [address]- Additional Instructions: Problem List/Past Medical History Ongoing Smoker Historical No qualifying data Procedure/Surgical History broke leg. Medications [place] 325 mg-5 mg oral tablet, 1 tab(s), Oral, q4hr, PRN Allergies No Known Medication Allergies Social History Alcohol Substance Abuse Tobacco Immunizations Vaccine Date Status Comments SARS-CoV-2 (COVID-19) mRNA BNT-162b2 vax 09/30/2020 Given Prophylaxis SARS-CoV-2 (COVID-19) mRNA BNT-162b2 vax 09/09/2020 Given Prophylaxis diphtheria/pertussis, acel/tetanus adult 12/05/[address] [facility] Comment on above: Result Comment: Elec tronically Signed By: Kirk MOREAU, Beth G.\.br\Date and Time Signed: 10/09/21 11:41 EDT Sleep Studieson 04-27-2021 Sleep Studies [id number]# 1.00CD:[address] [facility] Coding Summary.on 04-25-2021 Coding Summary. CD:[id number] G h0bWw+PGhlYWQ+GA4RCIL cX70zlWWnvX8WK3kJWC2F WFTAJJZSBR1OTC0eaYS9E CngY5BskzXl SklpeODtDM75KWb4NZK1s KiyZKdukP8kwUCoZ3z0Gz WvJJ32bE17NEfsNUXwTdU 3LjZpbjsgbWFy Q4tpZlWvxVQyApn+PHRhY mxlIHdpZHRoPScxMDAlJy UwsXyhNQ8xPp9nRWJkOEW vbGxhcHNlOiBj k2dzDGNaAQpkBY7aiUutT 6EriBT1ZAMdb5o0Kr22kD I+BJTcIQX0hBobZFieg66 9RlUjc7rxGRL3 hHNcZJcpVZA8V96uz7T9H GXgFUYhFFB1qTZ4hG2paZ tqazwlX7JfmJIsLcK0RTR 4yXRraP8flSiz iowjeR5uZku+H71WKC5XW CRPLH0PQyf1Y3ZiWdcpyW I+OD08GFXkJJ35nQYlfYU rn5aaeMl9IgKl DSWbFJE2jTpaQNzqe7IdQ TCgN08puWSbb3C6MXIcdC satLMwApJbuUL9kQ6aRGu ffxwzc2amxljw Tfbtb4ernc78kW01N71uT XnaTJSoHSF1TJEpGFUbpW aqkh6mmJ0pVg7+DGvvc4p qy9thaBi7XwYr YRCmocRllKhfTVY1s5KsY s98L4GauXkjv0UjWha9jr 08iQQsa1L3iFS6WWsnPYR zuX5rPJcvNiX8 VMVcEvIzhW74uTHiIVcnH z6suMrtoYzdCV9nFTNsjg brOLKaeS2fMXHzzIDvjZp eJV9kKZLhfuxw y564YsXoYBJ8CFBkgFDdK 8SkyR2xLtFpQROxBSDhB0 PsqVWvYStgE113SFqhEfK 9FFArtaTuJ2Za TUTlbThsEcX1o6P5Ks7Oj 0DdxyvjSSB5XUhfXSZuZj J0TtQuEiX3A8MxMda3THD noGarHH6iV6Vh WDNzuzonzyudeFY2WCGeO SLxpC33dQYkMAvjXd4ko9 O4b143QARlQPPjfH98Pz6 udDogMTBwdCBU aO8zgjzaz6heoaqaIeQbE ARmCLy0HUu4YOAnuOpoSd OrTIW8KbR0OFX6iKIwyR5 zxGktezfkaJ9m Oyc+R35hrU4sAYM7HUD0b uwnWYDhqgWsBO61VP68V8 RyPjwvdGFibGU+PGRpdiB deDvkDV5tUjAt f4ako5EjSCurT1SwCNRyU IhpDzo8SBFfOMZ1rFT0lN 2gPOLzTGrpq0O1wIM6Y4O opkFtrk2mx8tg HWXyTZapK82loKWyc7U3U EDxcQY0XJUinRvzNbZhjN 93Oyc+STYrxSiya8JtPlh bu2opi2zfgAj4 LgOxEJYccpKkhKbkTVU8v 1UoBh39R67jEUvsBGYrQI EdFCHyXFVgeAvein3mvP7 wIi8+PGNvbCB3 xDY4yL8uSBVmVdT1VIssT 703JwPobWXlIvgvf2hai9 uufIz8JnSfOVUvgcTclXu lCOE3e5DwMi89 D47lJQhzMTViTNUaWPUpT PZavYwoup5itP0vFo7+PC 9zo9mvhh11vO50eJX+PHR aHRZ9jDjuVSpq ATMrtZ4nXGcdNcM4NYEcH rGtmI89qNSiZQfjPt0vsQ vhvPtjXE8qDXHatmeiu38 7ZlVdz0btLYZg jYEuORrsBZB1R82nh8E8N ASsZTHsKIE3mRB6yE9coI lnbjogbGVmdDsgdmVydGl lZVzvHLhbX154 IHRvcDsnPlBhdGllbnQgT pQdTGa7T5CcAhy8MXZmhG pcQV7pvDDdRZpoBb4ccVh ovPkuCJ2qWKMb skypg644NbEon8ahLBQfz LNzIIajWYN2L98vp6C8TL SmVRZqFAH3jUY8bY0cqJc nbjogbGVmdDsg wbIjySvsDIleDMimJ353D HRvcDsnPkJpcnRoIERhdG D3CQ33YU63yZHer1K4vRG 6D7NwATOqrqaq wtofvKB3PNCyYKMjvP98X z8czWcyZn4yNNRgLNJ1BW QmiUZzQ9LugY3jCqOcGVU pBNJxV0ChqFFe ZAmmH411MPtsGpH8AEHjv vWdN1FkDNQinQusAtN9u9 T6Fu1HL2K7HH82BG16kUM ft4E4aFK6P1Nz HDTvfegifpqiyAD1FGMaB HLhpZ89Hh3pjYshVs5jJT OtUPK8DPQzfTSkM3RimV5 yOiAjMDAwMDAw T0DohLHeVDjuT342BMxaO yJ6TIDumnUtS2JgDJKjoQ ykQtZ9f3Y6Kh8OHIh1HQ5 0VG46yUAdf2N7 rWX8K9VxOOVstdlhulthe GR6XESxIVQnlE99Pq8kwI jeKs4vEHMcCLG1IWGjuEQ oE0GknO4zGrDe NLEdQNXdT3NyqIEaUVmwR 235OHkfVnL6LSItvvZoV5 TbNYLqcSypRkR2k4X6Mw2 BKFOmYF97YGE9 dOK2JP70HD52V9TzAomuv GFibGU+PHRhYmxlIHdpZH RoPScxMDAlJyBzdHlsZT0 tFt9xCABqQWKk lRurrYGvQhIrl4siLIHtO ChvXB9cqFgbO0SnkXE1RT Fnq3f6Hw31Q68fT1KrcPW +GJGwxTD2vUV5 gX8dRfTjVkD6EYmnH206X zHpdPEnSyrwy4kri5zfjS x4OjW8UUUdldYnxDivSEJ 8d1NnBz35P21h IHdpZHRoPSIxNSUiIHZhb Cqhlh0dtI7qFy7+PGNvbC A2pZM3sX3jXvGaRyU7JDy cJ563PsEriEMy Pgjnh6zbz3morVy4NkStQ ACebdDtwSwlWGV0x1BfXu 94C6UfwIlzb5YhIyf6ty8 9uHRmv5H3dOK6 K8BfFXBlcjsaoRPaoHraR W8aKLUffwrqGSQrnE9nNJ AsC3v3RlHxGyV8SAdjR8Y dbyB0OUPemMHq HPbnSML1C48lx6T1EFThT TTkBMX5sBQ7tH3aeAuxjw ogbGVmdDsgdmVydGljYWw xPPalZ577ZDUk rNdbYYUzjP1bZOOdoCWoa KgdCC8iNZCfazerOuTIEs MUYgVHMLJQS2bZTqMPWA3 9VH36iVCve4J8 mXC0N6VeBDEpdzesyejsh CQ7RHLxYFJtcJ42mTWkTF xtRk7iv9E8m548DBGnUJC vfG72Ff7jrCif DYUwsCDUuM4icnazt1wod atkTbOfIYDwTXt8XNs2ER AzwLflGeXqRGX2MyM6MUY 8bZHwyI2ctZhx viyehQ2bNup+MDkvMDMvM Xz2EyzocER+NAIyTJV3qB rtWXzsOBHxdK2gGVDiY0c 3WjTnCiD3YApt X5LiYTBoorfjTz58bL6dO aXmAgP0ZRsrZ6EbftZ9HW VxiWTxVOzwTZO5A01op2U 3ETKvHTTrJGT9 dIQ4gH6ciCcobztipHGvp DsgdmVydGljYWwtYWxpZ2 54JAEsgFqxXsF5UTigXJC uUV58HX08yMGu e6A5lQX2Z4JcLMAazjjuc yfmnZF6LNPeSOEhlX16gW CaERwmKt1wv3Y6f353EMX qGDYatV17Uf4r qTvhGAFavPLCyH0vwakmb 8bcuhjwWqBuQVOtUXy4ZB h8PNMofNueCtWcKMS4OtC 0BGF2aXPirZ4u kNauvmqnrL0uGoc+TWFsZ TwvdGQ+SNFxTMU2iGcjFI tmTLZaoJ9pSXQnI7l1GfR zDeO1RUbyD5Rw JOGclcypWa34qA1sHbLsJ jI6ZLopM2NxdaH5GRHihB JtZMjeQIV9W36gj8T0DGQ sPYZuMAA7xQL5 fN4xxNplimvapTBfoUlcw jKgzOucTYqaYYfrC098IR IjhPjlRf26gABloTmtmrY 9R8KmDkvxoSW+ NC91LWMjHS44fGVxiRQrw 7wxwEm1AePbQXVlFBS8vE gpKBawo5FoRTSmP75viLI pk4C8MJCjaExy uMMcUePymCC2bJ8pIBfey xbhw7ocemgzCjqfr4fghh 64uI36F74hFIyyZVCzILO zMCUiIHZhbGln yo4axV5aYo3+AQGruHS5n BD2dP1uGbRiQjF5JYroY0 41SxGhlQMkPqrmy4hyv2q pjAi4JbIiSIUh suGgpFfeWPB6g9GoAd44H 29sIHdpZHRoPSIyMCUiIH LmvInxvv8fzQ9uMb3+PC9 ig3dxde06vN52 dHI+FQJjOIC0eImpZJdjJ ZUxrW3xVIghHxG7HDPgPe IiaD38nHPvOThuVl4ndOs vvDodZB0zXXMq gblqn010HrIug0ulEQKdl TFiJSumXGW6X98fw4O0AC FxWRCrXLT4bYC6qO8etEq nbjogbGVmdDsg lqKqdFdcDZulYGumA685J KUcoRyeGwJxkHBhV6vhjt CYSA8cNbxvjYW+PHRkIHN 0eWxlPSdwYWRk qH2cSEXiO7d9GzPqSwT5R XhkB8NetaL5NRSyyNOmEO LmnCWAiJ4ezfywy8ydwtr gIzAwMDAwMDt0 TVh5XXWtjRqgEyQmEBS5R mO1DVE7nSSxtA5fjVuodm pyuP5eCmv+RklOOjwvdGQ +PKUrSEB8yAcf SZbcKJSjzM1qYOPiJ0d7X sUxTjE4UHfpM4YqfsS3YK PnmFJxOTYfqSOVkS3tawh di9pldocjLvRc DZUiJSh1VCb4QWTwjDrmP uEgPDS0KbM5UVA6gDKxmZ 6fqPfllbgpoR5zEux+TVJ OOjwvdGQ+PHRk FJX5sCdiJGuvSKFbtL5kV FYgM6a4EaIyInL5INahB5 KthqU0OFZkiUWwUMWpuNH MjW5yczjhz2ur rspnZmTlKQZqKVp4QFk9Y LWkvTesUlGwUYS3TuB6MI L5gBXidF3zhPfcbxjsyD1 wOyc+AOE1HYY7 WQ21II27G5WsMwifdMWmn +PHRhYmxlIHdpZHRoPS kpALEcLoCslEbeBZ4gAm8 yZGVyLWNvbGxh cHNl (more content not included)... Normal [facility] Prescriptions/Work Noteson 1 Prescriptions/Work Notes [id number]# 1.00CD:[address] [facility] Consenton 04-21-2021 Consent [id number] 0 [id number]# 1.00CD:[address] [facility] Patient Eval Forms Officeon 04-21-2021 Patient Eval Forms Office [id number]# 1.00CD:[address] [facility] Patient Eval Forms Office [id number]# 1.00CD:[address] [facility] PT - Consentson 04-20-2021 PT - Consents [id number] 0 [id number]# 1.00CD:127 [facility] Patient Eval Forms Officeon 04-20-2021 Patient Eval Forms Office [id number]# 1.00CD:127 [facility] PT - Consentson 03-31-2021 PT - Consents [id number] 0 [id number]# 1.00CD:[address] [facility] Patient Eval Forms Officeon 03-31-2021 Patient Eval Forms Office [id number]# 1.00CD:[address] [facility] Physician Orderon 03-16-2021 Physician Order [id number]# 1.00CD:[address] [facility] Sleep Studieson 2021 Sleep Studies [id number]#1 .00CD:[address] [facility] Coding Summary.on 02-23-2021 Coding Summary. CD:[id number] G h0bWw+PGhlYWQ+ZD9MRXQ uP86tgJSrsQ8AC8aZJB5H RLYLAVRKEG1RFM2puYM9D EgzD4DzpyEg ZuiyrOYuFM11GWs7HBS3y SqaLJkkpW0sfVCnB3p9Ds MrZF01sK24UMfdUUOwPyG 3LjZpbjsgbWFy F1tmHkCvuBJiSit+PHRhY mxlIHdpZHRoPScxMDAlJy TruJdvFE7aDy6pPBExINX vbGxhcHNlOiBj v9xoIWWnWRvsDP7xbOnlA 1MpeOO7ZPLmp5b4Rk43yW I+GTWzBLF0tWpyBOwbx10 1WlUnh7fnMBE4 vTZjAZrkPBH1Y27ww8V1H EGeRSBxTHC5pMW9uK2lxL vcfxqbH5PfuFEmHcQ8GQX 4fTFqnI9oaEfg ljitmF5pXna+M02BRZ5JD MJGHH9MPqe9B8LvNhbmjM I+GS19MLKlEC95kJJziYQ dd9dgaMu6VpIt NSVkZOK6jBgtZCgkj2JxS DWgA66diOSnr6L7WCFpmJ uexGUuPuRhmVT6jZ7kZGg irvrex3fdovki Czkok3pibi40yE53V42bP TqwQCVjKDR3KMTmPAGcbF fdbi2frD1rAx6+CMvtk4g ma6rskMl5KnUb LUQrgqGcnIwsHRY4b9XoW m57U1UbqZkbu9IcDho5jx 54jOFza2U4hTH0MZvaCDL fhW3nEUhmBwL2 RFMbPqXbiB43wEDhCRimV w4svWmeeXetZN9hHSOqnl usYBDymD3hYAWyqGXkfZg zFR5wERFdtbbx l480UsLwTTY6WGScjKUdF 5HsoK1aHzQfIQUlBQUaQ4 VafGNnYSuoL012JDonVtN 3HAGfqoQkB3Ow WVXreSuvIeK1j2U7Nh4Qg 4VzhhenALO1LTliROV4Rv L2WvZfMiT1Z5CiVnl8GIG qaQfhAD0zC5No KXHkxcgccnoswZL0SPJqB UBcjA76cJBlFUsnVi9tv1 X1r048VCAhPHCjzW75Oa6 udDogMTBwdCBU pG4aibhgi2lpzgigJjIuP HYkBAo0WVv7NXCmxChgPo BdPYD5LfQ7YGF0wNZuvK1 opGecuxclgA0r Oyc+Q73jiS5iZIR9JHA1q pmaFGXgysXtGB96AE76G0 RyPjwvdGFibGU+PGRpdiB tbMfrYL9tMbPb f8cep4VtZPfeG3MdSCFnN YbkUjr1GJFxLYQ4sJI0rY 1vQFPzLBqiv8F2zZK7Q3B kkbJclv4fq0mc SYCuAFusU83hwHVnr5H3U YYyyOB6QDFbjHjoBmVxoW 93Oyc+UWMvqVloh2JwSbp zo1zpz9cgbEn6 UiJqZDNnncRccRhxWDD9r 3NqVc30R53qKNqwLCAoQB YrYYEtGRNghQnffk6pvZ9 wIi8+PGNvbCB3 eLF0lZ0wJGZvCoS5LSedN 502CmPxtJRdHbeqo5lnh2 nigZk9IgWtMCZpszFgzLe iEPE4p7PqRv50 U44jLSsvJQIsCYXdXEFxP YSwfAgjmj0utY1cAu2+PC 4nj0fzoc24lR36yOX+PHR gNQC4jAqkBAxq IMBezP9vNYaiZrS3CFEwO kOqkS78eBVyNWgnFg4bdR bywPrpKQ6tZZTslyzvq95 6GdDez2neDQIw sEVfCPghMTK3O51id7D1T OKkKDCwNHJ2pHU4eS1bpR lnbjogbGVmdDsgdmVydGl mXZteJJtjI220 IHRvcDsnPlBhdGllbnQgT qTyCHl5V2WePdg7BLEfkN nyKQ7kbJEnGSuqKw0ssFt tnVmuWG5uOGBe zerpq083AfVsn1rhCQJun WUrNGmuISL5Z10vl9G9AN TiPFOsHSN1kXP9oM3voLf nbjogbGVmdDsg blPdzSanVVekKOcaN457Y HRvcDsnPkJpcnRoIERhdG G2WZ28VW10fVGhz6M2mQJ 2N2WtXOWngygi lliboBB6ECArKMJjsK96W a1iuZeaIe3gKDUeUBO3KJ CkmIWuV7PkdT9aLaIaHMR lNGTgV2SnuONb GFnqH374LKzeAoC6ITTmr jGcV9TnARDvtTzjAgF7t0 U7Ql7ZX1I7RY50ED21cAD eu3N1jAZ6V3Nb KBCidysqtzmkvAT2QAOxG PGptA11Yx8jpJkeQh9ePG ZkVVW1MGUzqJTzD5NgoI8 yOiAjMDAwMDAw X9IuxOOeBVegA790YIzpB qX9VCZrxlKgD7DaHYDezN nkPiG7n2Q3Hv3YFIw0YX7 4AK91hJAzs7O7 iVX4N4GkNWSwxaktspncw CO9MOEyQCTxmH12Ib3omW pbQx0jEDLcYYS0EMHquVR oH0AomO4uKtMj LPXqTHVyN6IkuOJmFBapY 361PFauYiA7KVHvwkHyS0 QgBDPfaOlkXcG2c3D9Wl8 BYFGdBX59OXG7 xJJ6HU64HQ69M9SnQvavf GFibGU+PHRhYmxlIHdpZH RoPScxMDAlJyBzdHlsZT0 pYp3kJYNsNFEe vErblDLhUfNcg3nsLJMaX CwaBX8npPeqW8SwyGV1SM Pqu4a6Hg57U06rJ1LwnQN +OVBtbOU5wPO6 zS5dVsXdNwR6AHhiC545J rNgeXYvAnwsq4gsg7walD v4AkA9LSPvvoWkfMahMGJ 6n4AbFr51K60p IHdpZHRoPSIxNSUiIHZhb Bjtpi0pwR8hLx7+PGNvbC G4gWT3vE3rSvKeBvU3PMm yI474XiTlpRQs Fhigh9hdr4cbxFm7JtFuG VPtarLovUraITN1q6UnHi 10Q9IrkTbmw9LlXyo5hi7 3cUDvw1K6jCN0 Q1PxKUIsungnpCPmrZqwI L4bQOMhoatcSAKgaR7eTO HaL1q0KcVtFzM9SXvfU4F uwiW6DXMxySYv XJqrTAQ8Q18af8X9FXJfW GWmVQU0pQY9mE8leKcdco ogbGVmdDsgdmVydGljYWw gOAhyY884TZZj mYvaUPNwdQ9nZMCmeEPzq LbrCC0sADAbucyaPcBNQh LVWfPIQMDLV6cCJkRMLM9 9MR23fGTjs7E8 vRG7X0TeSPQwboynzwvrf HE7UDIhDJBnuU53yQUcMQ eyFq7bm2B2q354UPFmXIE smP99Wm1spEci OIXopNKPuJ7nliqkp4ygm vchUzJyVRTeAIi5SUf7YF YwdIkhZlGxXCA6FyW0LPY 4zMUxjK9jrAce mldsgR2wKbz+MDkvMDMvM Ev3XygznOE+LSRtXYO1iF wpAOszYQNnnA3dYTWdL1x 6RkRmBxJ3IMdr I4TwJIJwqaatEj37fF5zL wMtFbE6HVijG6MuykX8XG JhmAWiWBhsFRT0N70lk7I 2WKXaLFYuUFV1 iCS3cK3jgVmqcnzonLBwg DsgdmVydGljYWwtYWxpZ2 10EPDqsMarDiL4QYsiWNY nLQ46MX86cRGi z6Q9sTH7O0GdMRMplcnvb aombHL9BKHsNKDfoH93pG BiNYupRg9ue2H3p367WNA gCEDdhQ71Rl3t rAxqITMrfQNThC7ephqap 7yhqycoUtItDGPwNQp6YA i2MEGerPdmSmAaCYR4VmO 8UCT0aYRdoW8m iNbmmlhciD6zEoa+TWFsZ TwvdGQ+ALOuWSX0aDxqOF zxPZIssK8mTPGmY8k0VkQ eFwD0FLnfT3Uc XPYfrdxuRb54cI4vVjAkI rN2CHdbZ9JwcaS3MLLbjN SzVHstDGG2S90dm0G3MXZ qAHXcJZZ4fKF8 hJ1ioJjjieaueSPnsVfcj lRbrBrtCRcyULudO785FV JraCxgAt90qJIhdDadofK 5B0SxWpyubNW+ LY63HGUpQX22nOKkdYJqt 0icdQi8ImXkKGYgKJO3mP lbLWsfz0RwUVXdY05txKR uh4E3HMUgeCvk fTZjBsWtrVN1wA7fFAmwq jbyc4tyutbyTnsxz1wqep 36aW01J64nHTfmXHYwOQY zMCUiIHZhbGln wl7cuC9yEr6+KSSknVL2q EL3eO2qHtPqIjM8YQwbJ2 13OjQleKVdJaubj6urt0m tdYd8LuObINPp qtZmlMlsWSU7i1PaNr73N 29sIHdpZHRoPSIyMCUiIH AdiBbvxl1igU0qLk2+PC9 ux8sltl30fQ54 dHI+VXHgJXF1tIybENuoI UGgiH6rPTptJgZ4PKDgVa NveH23dDVhLQavZj7rxJy upNagLF2sZHDc bgkod369EoSaf5yuHDFhd ALmAAixHBR8W72qd5V2SH BkFPXqEFH1jHD7nD0zcVh nbjogbGVmdDsg wcLsiSyvVGwdWEsiC355O HDgnEvwPdHquSVlI1ugvd HOTW0jOpvhqTH+PHRkIHN 0eWxlPSdwYWRk nE7tAZEpL0h6IzUdMbH5M SbyK7IcfwI7OEOojFNzEX XsqKYDcH4lmzbnd4bnghd gIzAwMDAwMDt0 ZAz5JEZdhNhxTtFfDAD8E fY0VNU5oKAooM4dtBaofw xmkX6iUhb+RklOOjwvdGQ +NLWrPVX1xPvb LZxiKUAvpY1vSSHxX2c0R kZwIaM4RZlxS1KwwyK8QH NtfOXzLGApwLUThS0kcfv bh0vleyhmRuZs TZBzZSb9WKv4SNDamPvzM pRkLSK3XgD1VOG2pDWtqB 2egDamxvolkX4oLdj+TVJ OOjwvdGQ+PHRk ZZZ6rCrxSSnvGGGfjF3uW LUfO9a0LzXzEwV9MSmrB6 TdsvU4EKXqdYKrHNXcpFX JhT7txtmlx1ny qcfkBkUhTERhBPj9ONx4C RWuqElqWdBaWLI0LbU3OD S1oMEinT2qrBkdqhxguU7 wOyc+IVE6YKQ7 UE73AG17T1LnSxlssABzj +PHRhYmxlIHdpZHRoPS dmIFUbVpTssNzeFH1wHt0 yZGVyLWNvbGxh cHNl (more content not included)... Normal [facility] Coding Summary.on 02-22-2021 Coding Summary. [id number] G h0bWw+PGhlYWQ+FB6CQAB mW73oyFVufS3ZP4cINH4D JXKMSVJPWL5BUN5dxPA3O XlcT2UpbaZp SggiyOFrGV66YDh7SKQ0m DxuOPdkoB0yaQCmD0l5Xl HxWK65wE39YXynLLKvLzG 3LjZpbjsgbWFy G9eiDrUlxYDnWzp+PHRhY mxlIHdpZHRoPScxMDAlJy CspTnjTW0zBl2dHGJwCAA vbGxhcHNlOiBj q9slUQQuDYwgHM6qtGcgF 7WprHO2EGHjg8n7Qs92kH I+IAFlBCR7aXdtJHtgd48 1KxOte3kpQPN7 eKMePSjvDLQ7J26os7G7U IGdILVgOHM5nKE7vX0oaG gnacpnA3ZgeBQyCjF8BHU 5cIZabN3xaGdp gobyrR2vUpl+H45XLN8AY EVJCN0OOlo6U3GnPdfyjV I+TE99TCByNI71jYFafBZ iv4idnKw2VpAq BSBlOHT5wWeoIPldw4MwP WKrA06enLWoq3X8LPIqkW lsoAVxEtRisJH9qF1cGAq giuffy3wqmnzg Oxrff8qyne47eE31R22dG IvrAKFjWDB0HDOnENKgkP hcxa7gaR4bVb5+SFchg7i lp5cxrRi3SoCd YCUuabYgrEluMQG2e1VyW v58U1XwrTcjf1FiOvf7yz 30wEDro7K6fQS5EQsaUIO azX9tDCyzHvZ5 ADFoOgBnxD36xTEeWHesD k2paAeonToiSE1qTTEzxp waCZYamF7qIJBakASssZu aJW7iATHolyjq t542KyFmMEO0TZEgqVFnZ 6CsxJ7hDiZqEGRbDXCxO8 KbnGSoBOkoM067ASudMqH 3FILzslWuS4Kp DCKjtFlmAqO3u5Z2Dk2Ym 8BjbplrJTI5SYfyXUD7Mz C0JlDjJwO6U6BaDar2SCD ifLcqXZ8gW3Bu QHEkwvcumekhxSN7UHJdP MMsuA66mTKjCLcoXk4sw3 A4f476AWLmUULsiQ84Or3 udDogMTBwdCBU iL6ouogvw0qusuhaWwLqC OVsEVk4VDc5VFYvnJabYc FuQLU0GsL9PFD6mTVhiH9 keFhqdpmuuT7m Oyc+U54jnP1sWRB2RJP5e vrpZOCfjuYgDQ51OV55V8 RyPjwvdGFibGU+PGRpdiB lfLnvNC1fTxJm j0dpy5PwIHueO9GjDSIvF CguMfo2GSEcVSE4tTK0xR 4oXERzBXsyg3B0tIZ6L9Z ygwZtam9wh1jf ETZnPHchM07peRCre9Q6I IScpCK0PPNefXboSaTmmM 93Oyc+KXFeeGohz6QsMoq yh0kjk5ealLo1 KiZbEAHjkrMfvTisBZP9b 7AiUb64O48iAJjhPPMgYA HlYLNbSXOolMyapi5ufK5 wIi8+PGNvbCB3 hCQ5jT7pLZLaFbB8TWrzZ 471KvJuiSVmMslkc4zqm8 yjeQn0CcUoFGVtehWajYy gGPZ0b3QiHc34 V78eDAztVGHaHDCmAEChY CCdhFzahr0exP0vDz6+PC 9io1jtdt02wT83hRV+PHR qNML6rOoyYGpd COAbkJ4vEAvrKxA2PQOxH uBjcV32yEGkDUdlSl0czW iiwDbhQD1cWSHlszsyz31 8YuTld2juQZWd eEEvDVebBJW9T53ld3U6H OQaFKAzZJE8jWN2pE6veY lnbjogbGVmdDsgdmVydGl iZKqlYRhbP021 IHRvcDsnPlBhdGllbnQgT kKtOVe0S2FkSwj1CJXahJ rnLY3wwXXcLYgmGg9osXe hjBqkES3qYESa eghiq250FgMqa9tvNCKai VKjJDheEPY8C19rx9Z2VO EjSZNeEXC3sRB2uC1hgVb nbjogbGVmdDsg xrFbmNhgBJnnDNqcL243A HRvcDsnPkJpcnRoIERhdG O0XO26GN08eNAtl8L3tQW 6O6VgWNFtmxkd favzeOP7AVWcBEMctW52F z9dsCviWs2jNFAgYZP7KN YifIGcT8ZlgW5oHmLpCCU wQGWhG7DdwYVz IXkwN183MTgrRrY3PCBqi qAhU7JhADElwYsrBcT5e8 X5Ns0GG9T5BE79NP81cQN ug6M4tBU8N6Js GKHerngmvbgnhNH6YXCcW FRasS98Hx2sePudEt9sZW CjDWH9ICFpvKIdL2UauC3 yOiAjMDAwMDAw N9EllFKuNVtkO031WKjgK mJ0LCXeesTpA1VyNTJxrC scPiT0g6D9Vm0ZTPi3GC8 9DX11lLWif5S4 mQJ8Z5PbGWZplwbixejwh PH9ETWgZPSjaY37Ck9stA zsXl9pVNEtRSV4GWEbdGM hZ7WmqA0iUfDq UWFwKZDsG9WhfPTmUUnjF 074TSznWaW3BUIlhvMuT7 WgYVWxuNcdGuI6m3V5Yu4 FOWIuVG55FPD5 aNZ3NY18WU84Z9NsDkuqm GFibGU+PHRhYmxlIHdpZH RoPScxMDAlJyBzdHlsZT0 iFq1xQPHsBXEp wWagbGVxEeYqb5fwABWfR PlbKT1ouVvnP8GnyTC4NS Yii1v3Br11S61lX7CebGK +WYDibCY5eWS7 jC6kEzPuHkX8THpjU669A mKhvLSuNgfoj9htx5wteS j5JbV2TEKfwlIpqCrvVGJ 0t4GdUf47C35h IHdpZHRoPSIxNSUiIHZhb Klnoj0dhY1lCl5+PGNvbC F2uWB0yD3rKwIrEeK6PWh vC954KpZatFBq Lvprn6zhr6ezcEv2BvEzZ UKnauVbcYalOGN8z8CgAi 12V7QcaOaul0BlZcw2nh7 3pLSka4E0vAJ3 C2YqDSAtetsafINeeKisB F1cIYEgbotbREEpzT1fDY DuJ3y0WiJeUpY6XYvnI2Y dseZ2DUKqnCDw DCfhUMB9O68ci4A1MILwQ MZgMVX1wFU3tV1alQkgak ogbGVmdDsgdmVydGljYWw gBDneY917LJRn hFkyNDEgyR2jVMOwvKKhf ZfzKK5nOEUmhbhvKnMEPd ZFVvKWFLFYT7eCAcSAHB8 6LC81hTJvx2L7 xWG5Q2BvSHDbhbviblyqz OQ3QUHaSLNmvK44pEWfQL nnPr2gv2D5b123VOGaBUH nsN76La3haQee KSGanHHAdN3upjtle8uer tjyGuUpGGSoFVv2IHv6HF UopRtlYiTnLKL8JvH8ZVM 5cYEfdA6iuItg aiqqyF2eTbn+MDkvMDMvM Qb8RulmgJT+AMQwVNQ4dP peGAwlRARpmQ6vXTHkK8f 6FgEcYeX0PKfq X4JpFZZnvotaAz83bR5tB iHhAmF0DGzhU5QifkH3RH KbzONgQMerAJJ0G57dl3M 0RNTvYOIgJHU4 hHX3nJ7btMixgzjkoZIub DsgdmVydGljYWwtYWxpZ2 10WLEwjAhmGoJ3ZVlpBHL aWH26HF66tXKn t8T7wVS4J3UbWCFpylfvl mnqeQZ5IXUgFANaiB87dE RhMJgmNt7ib6I8t534GOJ zFCGlmT43Am7g bRdiNBTrgEAUfJ0mfsbfy 3xpdmxiCqFfQQDmVLt9HE l1XOUuzHydDbKnUJP4VtI 4TJO2hGXzqQ7h sLkryzadqK3sIsl+TWFsZ TwvdGQ+KZRbNZT8cKhrYS rrTYMwpL2sESRoR0k0YbQ jZlV9HEqwC7Fo FPXitsyiSg60wY4lRmZkH zQ6JCwiJ3MjwqR0CCTssV FjJOveQBA5C72db8T4KNT fEAUnGNO8hWS1 vT6nsZybaauvsELqvQwrk uGgaTdtZCqbLYxvW353MX QiuVwrXj40vKGoeVrvmgG 2A9YqQurnhEE+ CG17GDFeRV59zYLitNCsu 5dvgCl0SnLcSMTrARP3qR coOWbff4CuQYJxG15eqMU hc0E7LSLryTdj eCTiLeFfdBZ5gW7kUZkav qarc5ghbyowZijcf6pgca 07lP47S35gATgmUXPtULA zMCUiIHZhbGln rr7nqG0iMh9+YZDzdWH7f EB1sK8vRiGnEmH5AFffG2 95YrXdiGVwLoopb1vak3m wuXm1NuKtBCWx mbQclQjnKPS4t4YpRd95L 29sIHdpZHRoPSIyMCUiIH DjnRogfr3xfW5cAj7+PC9 pm5mhox40eA42 dHI+MGAxBTJ5bWgsAWvaN BQrvW0kEVvfAvJ2ASQiMm GxgJ35tXDeNCudAo2pvPy nwZiwCR1uFNCk xtzbr264RoSlx3olZPFlc SDfAReuZXL4B82ft1B4MA ShUGThUOG4kTO8sI8fxMl nbjogbGVmdDsg yqMzlHkfBUtbARpbU543L ODzcDuyAcEobDJyD0xrkp ADTK9gTkspxRC+PHRkIHN 0eWxlPSdwYWRk wK9kRINsF1k5YkIbNtS3G ArtE0UsptE8NZObsCNxWP HqyEZClJ9txccti6wtpob gIzAwMDAwMDt0 LRu9GNFwqSjvYsTcBUT1C oM2FON3wJPkaC4faIwopm kvyT3wPnb+RklOOjwvdGQ +YOKhPQV4tAym IYhhRVHciC5nQTRpM1b2E xKtXnQ2RNtoK2UdkgA2LI UzwUPiOCGvqUZVuX7ylpj cq2yhtpmaXkLg WLSrURf9OUe2CBBbsFxxM pZtZWN6SyM5BLZ4wIDyhQ 2gkIltdduvgN6qFme+TVJ OOjwvdGQ+PHRk PNO0dZhdZCqwUDNmvD0aS UGiL1h9OsGdPkY3RXjqL9 WkbsX4HPOimNUyJOGhgXA EoP2bwpihl1rs sexbZjSaRNStATn5ZSu3Q BFsrQteYaGxFSJ3JsG2TI D0lKCdjA3mqLeuglkhaV0 wOyc+ZCE4MCP6 ZZ85RA85Y0XcNwjvnGDhm +PHRhYmxlIHdpZHRoPS tlBFPzSwOdjRsjUZ9oQf1 yZGVyLWNvbGxh cHNl (more content not included)... [facility] Patient Eval Forms Officeon 02-21-2021 Patient Eval Forms Office [id number]# 1.00CD:[address] [facility] Consenton 02-20-2021 Consent [id number]#1 .00CD:[address] [facility] Patient Eval Forms Officeon 02-20-2021 Patient Eval Forms Office [id number]#1 .00CD:[address] [facility] Patient History Officeon Patient History Office [id number]# 1.00CD:[address] [facility] Physician Orderon 02-16-2021 Physician Order [id number]# 1.00CD:[address] [facility] Sleep Office/Clinic Noteon 0 02-15-2021 Sleep [...] MOREAU, Beth Ramirez, PUL, LUZ MARIA [address] [facility] [place] [address]- Additional Instructions: after his testing is completed Problem List/Past Medical History Ongoing Smoker Historical No qualifying data Procedure/Surgical History broke leg. Medications [place] 325 mg-5 mg oral tablet, 1 tab(s), Oral, q4hr, PRN Allergies No Known Medication Allergies Social History Alcohol Substance Abuse Tobacco Immunizations Vaccine Date Status Comments SARS-CoV-2 (COVID-19) mRNA BNT-162b2 vax 09/30/2020 Given Prophylaxis SARS-CoV-2 (COVID-19) mRNA BNT-162b2 vax 09/09/2020 Given Prophylaxis diphtheria/pertussis, acel/tetanus adult 12/05/2019 Given Normal [facility] Comment on above: Result Comment: Elec tronically Signed By: Kirk MOREAU, Beth Ramirez\.br\Date and Time Signed: 02/15/21 14:[address] [...] Chino Mcqueen MD 08/01/20 Final result Normal [facility] No acute abnormality of the cervical spine. Multilevel degenerative changes. [place], [place] Claudio, [employer] Incoming Radiant Results From [employer] - 08/01/2020 1:22 PM EST EXAMINATION: CT [...] of the cervical spine. Multilevel degenerative changes. [facility] [place] EXAMINATION: CT OF THE CERVICAL SPINE WITHOUT [...] There is no prevertebral soft tissue swelling. [place], [place] CT HEAD WO CONTRASTon 2020 CT [...] Randolph Roman MD 08/01/20 Final result Normal [facility] Claudio, Mh[employer] Incoming Radiant Results From [employer] - 08/01/2020 1:20 PM EST EXAMINATION: CT [...] fossa. 2. No convincing acute intracranial abnormality. [place] EXAMINATION: CT OF THE HEAD WITHOUT [...] of the visualized skull or soft tissues. [place] 1. Streak artifact from dental amalgam limits evaluation of the posterior fossa. 2. No convincing acute intracranial abnormality. [place] CT THORACIC SPINE WO CONTRAS Ton [...] Panfilo Middleton MD 08/01/20 Final result Normal [facility] Claudio, Mhpn Incoming Radiant Results From [employer] - 08/01/2020 1:29 PM EST EXAMINATION: CT [...] fracture or malalignment of the thoracic spine. [facility] [place] EXAMINATION: CT OF THE THORACIC SPINE WITHOUT [...] SOFT TISSUES: No paraspinal mass is seen. [facility] [place] No acute fracture or malalignment of the thoracic spine. [facility] [place] XR ELBOW LEFT (MIN 3 VIEWS)o n [...] Randolph Roman MD 08/01/20 Final result Normal [facility] Claudio, Mh[employer] Incoming Radiant Results From [employer] - 08/01/2020 1:11 PM EST EXAMINATION: THREE [...] the left elbow. 2. Minimal degenerative changes. [facility] EXAMINATION: THREE XRAY VIEWS OF THE LEFT ELBOW 08/01/2020 12:51 pm COMPARISON: None. HISTORY: ORDERING SYSTEM PROVIDED HISTORY: trauma TECHNOLOGIST PROVIDED HISTORY: trauma Reason for Exam: fall Acuity: Acute Type of Exam: Initial FINDINGS: No acute osseous abnormality seen of the left elbow. There is minimal degenerative changes of the left elbow. No evidence of dislocation. The soft tissues demonstrate no acute abnormality. [facility] [place] [employer] 1. No acute osseous abnormality identified of the left elbow. 2. Minimal degenerative changes. [facility] [employer] Vital Signs Date Time Vital Sign Value Performing Clinician Facility 01-30-2024 10:58-0400 Body height 185.42 cm [facility] 01-30-2024 10:58-0400 Body mass index (BMI) [Ratio] 24.6 kg/m2 [facility] 01-30-2024 10:58-0400 Body weight 84.82 kg [facility] 01-30-2024 10:58-0400 Diastolic blood pressure 68 mm[Hg] [facility] 01-30-2024 10:58-0400 Heart rate 57 /min [facility] 01-30-2024 10:58-0400 Systolic blood pressure 149 mm[Hg] [facility] 09-19-2023 08:30-0400 Body height 185.42 cm [facility] 09-19-2023 08:30-0400 Body mass index (BMI) [Ratio] 25.6 kg/m2 [facility] 09-19-2023 08:30-0400 Body weight 87.99 kg [facility] 09-19-2023 08:30-0400 Diastolic blood pressure 72 mm[Hg] [facility] 09-19-2023 08:30-0400 Heart rate 57 /min [facility] 09-19-2023 08:30-0400 Systolic blood pressure 162 mm[Hg] [facility] 06-06-2023 10:15-0500 Body height 185.42 cm Adriana Mejia Other [employer] [facility] [place] [employer] Other 06-06-2023 10:15-0500 Body mass index (BMI) [Ratio] 25.54 kg/m2 Adriana Mejia Other [employer] Other 06-06-2023 10:15-0500 Body weight 87.82 kg Adriana Mejia Other [employer] Other 06-06-2023 10:15-0500 Diastolic blood pressure 70 mm[Hg] Adriana Mejia Other [employer] Other 06-06-2023 10:15-0500 Systolic blood pressure 159 mm[Hg] Adriana Mejia Other [employer] Other 04-19-2023 09:30-0400 Body height 185.42 cm Adriana Mejia Other [employer] Other 04-19-2023 09:30-0400 Body mass index (BMI) [Ratio] 24.7 kg/m2 Adriana Mejia Other [employer] Other 04-19-2023 09:30-0400 Body weight 84.91 kg Adriana Mejia Other [employer] Other 04-19-2023 09:30-0400 Diastolic blood pressure 77 mm[Hg] Adriana Mejia Other [employer] Other 04-19-2023 09:30-0400 Systolic blood pressure 159 mm[Hg] Adriana Jackie Other [employer] Other 01-06-2022 07:59-0400 Body temperature 97.7 [degF] Kirill Alfred [facility] 01-06-2022 07:59-0400 Diastolic blood pressure 88 mm[Hg] Kirill Simon [facility] 01-06-2022 07:59-0400 Heart rate 60 /min Kirill Simon [facility] 01-06-2022 07:59-0400 Respiratory rate 15 /min Kirill Alfred [facility] 01-06-2022 07:59-0400 SaO2% (BldA) [Mass fraction] 98 % Kirill Simon [facility] 01-06-2022 07:59-0400 Systolic blood pressure 202 mm[Hg] Kirill Simon [facility] 08-01-2020 13:03-0500 Body Temperature 97.59 [degF] [facility] [place] 08-01-2020 12:35-0500 BP Diastolic 73 mm[Hg] [facility] [place] 08-01-2020 12:35-0500 BP Systolic 149 mm[Hg] Tomi [place] 08-01-2020 12:35-0500 Pulse (Heart Rate) 76 /min Tomi Estrella [facility] 08-01-2020 12:35-0500 Pulse Oximetry 99 % Tomi [place] 08-01-2020 12:35-0500 Respiratory Rate 18 /min [facility] Encounters Encounter Date Encounter Type Care Provider Facility Start: 01-30-2024 End: 01-30-2024 ambulatory [facility] Work Phone: Start: 01-30-2024 End: 01-30-2024 Patient encounter procedure [facility] Work Phone: Start: 12-02-2023 End: 12-02-2023 ambulatory Andrius Vytautas Cedricitis Facility: [facility] Start: 11-11-2023 End: 11-11-2023 ambulatory Andrius Vytautas Cedricitis Facility: [facility] Start: 10-28-2023 End: 10-28-2023 ambulatory Andrius Trevorytautas Cedricitis Facility: [facility] Start: 10-14-2023 End: 10-14-2023 ambulatory Andrius Vytautas Cedricitis Facility: [facility] Start: 09-19-2023 End: 09-19-2023 ambulatory [facility] Work Phone: Start: 09-19-2023 End: 09-19-2023 Patient encounter procedure [facility] Work Phone: Start: 06-06-2023 End: 06-06-2023 ambulatory Adriana Mejia Other [employer] Other Start: 06-06-2023 Office outpatient visit 15 minutes Adriana Mejia [facility] Start: 04-25-2023 End: 10-26-2023 ambulatory Adriana Mejia Other [employer] Other Start: 04-25-2023 Telephone encounter Adriana Mejia [facility] Start: 04-19-2023 End: 04-19-2023 ambulatory Adriana Mejai Other [employer] Other Start: 04-19-2023 Patient encounter procedure Adriana Mejia [facility] Start: 01-13-2022 End: 01-14-[address] ADRIANA MEJIA Facility:[facility] Start: 01-06-2022 End: 01-06-2022 Emergency department patient visit Kirill Simon [facility] Start: 01-06-2022 End: 01-06-[address] LENA MARIE Facility:[facility] Start: 01-03-2022 End: 01-03-2022 Patient encounter procedure ADRIANA MEJIA [facility] Start: 10-09-2021 End: 10-09-2021 Patient encounter procedure Beth Bradley [facility] Start: 08-01-2020 End: 08-01-2020 Emergency department patient visit TOMI W [facility] Start: 08-01-2020 End: 08-01-2020 Emergency department patient visit Tomi Estrella Work Phone: [facility] ED Comment on above: Closed [...] Radex elbow complete minimum 3 views George Shey Alcala Work Phone: [employer] Plan of Treatment Date Care Activity Detail Author Start: 12-04-2029 DTaP/Tdap/Td vaccine (2 - Td) DTaP/Tdap/Td vaccine (2 - Td) [place] Start: 03-01-2020 Influenza vaccination Flu vaccine (#1) [place] Start: 2018 Pneumococcal 65+ years Vaccine (1 of 1 - PPSV23) Pneumococcal 65+ years Vaccine (1 of 1 - PPSV23) [place] Start: 2003 Screening for malignant neoplasm of colon Colon cancer screen colonoscopy [place] Start: 2003 Shingles Vaccine (1 of 2) Shingles Vaccine (1 of 2) [place] Start: 1993 Lipid panel Lipid screen [place], [place] Start: 1953 Abdominal aortic aneurysm screening AAA screen [place], [place] Start: 1955 Hepatitis C screening Hepatitis C screen [place] XR Lumbar spine 2 or 3 Views [facility] Immunizations Immunization Date Immunization Notes Care Provider Ally martin 04-19-2023 influenza virus vaccine, unspecified formulation [facility] 04-19-2023 influenza, high dose seasonal, preservative-free Adriana Mejia Other [employer] Other 09-30-2020 COVID-19, mRNA, LNP- S, PF, 30 mcg/0.3 mL dose; Translations: [Pfizer-BioNTech COVID-19 Vaccine] Beth Bradley [facility] Comment on above: Reason for Medicatio n: Prophylaxis 09-09-2020 COVID-19, mRNA, LNP- S, PF, 30 mcg/0.3 mL dose; Translations: [Pfizer-BioNTech COVID-19 Vaccine] Beth Bradley [facility] Comment on above: Reason for Medicatio n: Prophylaxis 12-05-2019 tetanus toxoid, reduced diphtheria toxoid, and acellular pertussis vaccine, adsorbed; Translations: [Adacel (Tdap)] Beth Tubbsdad [facility] 04-27-2019 influenza virus vaccine, split virus (incl. purified surface antigen) Adriana Mejia Other [employer] Other 04-27-2019 influenza virus vaccine, unspecified formulation [facility] 04-27-2019 pneumococcal conjuga te vaccine, 13 valent Adriana Mejia Other [facility] 07-08-2017 diphtheria, tetanus toxoids and acellular pertussis vaccine, unspecified formulation Adriana Mejia Other [facility] Payers Date Payer Category Payer Unknown 2018 Medicare 1961 Medicare [id number] 1961 Private Health Insurance [id number] 1953 Unknown [id number] 2.16.8 [id number] 1953 Unknown [id number] 2.16.84 [id number] 1953 Unknown [id number] 2.16.84 [id number] 1953 Unknown [id number] 2.16. [id number] 1955 Unknown [id number] 2.16. [id number] 1955 Unknown [id number] 2.16. [id number] 1955 Unknown [id number] 2.16. [id number] Social History Date Type Detail Facility Start: 08-01-2020 Tobacco smoking stat us NHIS Current every day smoker [place] History of tobacco use Cigarette Smoker M [place] Start: 08-01-2020 Tobacco use and exposure Never used [place] Start: 08-01-2020 Alcohol intake Current drinke r of alcohol (finding) [place] Start: 08-01-2020 Alcohol Comment daily 3-4 beers per day [place] Sex Assigned At Not on file [place] Tobacco [facility] Comment on above: smokes 1 ppd. Sex Assigned At Male [facility] Start: 1955 Sex Assigned At Male [facility] Functional Status Date Assessment Result Facility 01-06-2022 Functional Status N/A [facility] Clinical Notes 10-04-2021 to 06-06-2023 Note Date & Type Note Facility 06-06-2023 Evaluation note Encounter Date Diagnosis Assessment Notes May, Removal of michelle (ICD-10 - Z48.02) Pt tolerated staple removal well. Pt denies LOC or fall without reason. He slipped in slippers on an icy patio with dog outside. Steristrips applied.. Keep area clean. [employer] Other 10-20-2023 Evaluation note* Encounter Date Diagnosis [...] to quit smoking. Agrees to LDCT at [employer] Other 07-09-2022 Evaluation + Plan noteExtracted from: Title:ED Note Author:Ramon Gauthier PA-C te:01/06/22 Otitis externa (H60.90: Unsp ecified otitis externa, unspecified ear) Orders: ciprofloxacin-dexamethasone otic, 4 drop(s), Ear-Right, BID for 7 day(s), 10 mL, Refill(s) 0 [facility]07-09-2022 Hospital Discharge instructions Patient Education 01/06/2022 08:25:56 [...] antibiotic even if your condition improves. Take [id number] and prescription medicines only as told by [...] 06/17/2006 Document Revised: 11/21/2018 Document Reviewed: 11/21/2018 [employer] App Patient Education 2020 [employer] 01/06/2022 08:25:56 Ear Drops, Adult Ear Drops, [...] 06/11/2002 Document Revised: 05/30/2018 Document Reviewed: 06/20/2017 [employer] Goodie App Patient Education 2020 [employer] Follow Up Care 01/06/2022 07:58:43 With:Elizabeth Veliz Address: [address] [place] [address], [address] [place] [address]- Business (1) When:01/09/2022 08:19:10 With:ADRIANA MEJIA Address: [address] [place], [place] [id number]- Business (1) When:01/09/2022 08:19:07 [facility]04-06-2022 Hospital Discharge instructions Follow Up Care 10/04/2021 10:34:18 With:Kirk MOREAU, MANAV Vincent, LUZ MARIA Address: [address] [place] [address] [place] [address]- When:1 year [facility] No data available for this section [facility] noteNo InformationNortEncompass [facility] Other Evaluation note* Diagnosis Onset Date Resolution Status Lumbar pain with radiation down both legs acute [facility] Work Phone: Evaluation noteNo assessment information available [facility] Work Phone: History general Narrative - Reported* Type Description Date Medical History Depression, controlled Medical History Generalized osteoarthrosis Medical History Transient insomnia Medical History Obstructive sleep apnea Surgical History Hernia Repair Surgical History Left ankle surgery - with plate s and screws 2014 Hospitalization History SEE SURGICAL HX [facility] Other Hospital Discharge instructions No data available for this section [facility] No data available for this section [facility] Discharge Instructions * Instructions* George Alcala, DO - 08/01/2020 Thank you for visiting [facility] Emergency Department. You need to call Adriana Mejia MD to make an appointment as directed for follow up. Should you have any questions regarding your care or further treatment, please call [facility] Emergency Department at [phone]. Take any medications as prescribed, if given [...] Everywhere. * Head Injury: Closed: General Info (Cymraes) documented in this encounter Assessments Diagnosis Closed head injury, initial encounter- Primary Summary Purpose Family History Relationship Condition Age at Onset Recorded Date/T estevan father Family history of other condition Unknown Malignant neoplasm Unknown Unknown Not Specified Malignant neoplasm Unknown Family history of colon cancer Unknown Relationship Condition Age at Onset Recorded Date/T estevan father Family history of other condition Unknown Malignant neoplasm Unknown Unknown mother Malignant neoplasm Unknown Family history of colon cancer Unknown Advance Directives Advance Directive Response Recorded Date/ Time Advance Directives No September 18, 2 024 8:20am Chief Complaint and Reason for Visit Chief Complaint arthritis Reason for Visit Lumbar pain with rad iation down both legs Chief Complaint discuss different me dication Additional Source Comments Reason for Visit (unrecogniz [...] and content) DATE CREATED AUTHOR 08/02/2020 [facility] DATE CREATED AUTHOR AUTHOR'S ORGANIZ ATION 01/17/2022 [facility] DATE CREATED AUTHOR AUTHOR'S ORGANIZ ATION 01/18/2022 [facility] DATE CREATED AUTHOR AUTHOR'S ORGANIZ ATION 12/10/2023 [facility] Care Team (unrecognized sect ion and content) Team Status: Active Member Role Status Dates Adriana Mejia MD Primary Care Provider Active Team Status: Inactive Member Role Status Dates Adriana Mejia MD Primary Care Provide r, Attending Provider Active Start: September 19, 2023 End: September 19, 2023 Team Status: Inactive Member Role Status Dates Adriana Mejia MD Primary Care Provide r, Attending Provider Active Start: January 30, 2024 End: January 30, 2024 Goals (unrecognized section and content) Goals may [...] BE BASED ON THE PRIMARY CLINICAL RECORDS. [employer] provides no warranty or guarantee of the accuracy or completeness of information in this document.
[2024-05-21 07:37] VITALS: BP 112/85; PULSE 55; TEMP 36.9; O2SAT 97; BMI 24.4
--- NOTE | 2024-05-21 07:41 | XR_ITS ---
The [address] [address] Patient Name: ROSALIO JARQUIN MRN: [id number] date: 1955 Sex: M Assigned Patient Location: ER Current Patient Location: ER Accession/Order Number: [id number] Exam Date: 05/21/2024 08:03 Report Date: 05/21/2024 08:23 At the request of: RATNA FELIX Procedure: XR knee LT 3V PROCEDURE: XR knee LT 3V COMPARISON: None. HISTORY: knee pain FINDINGS: BONES:No fracture, acute abnormality, or significant arthropathy. SOFT TISSUES:Negative. No visible soft tissue swelling. EFFUSION:None visible. OTHER: Negative. XR/XR knee LT 3V IMPRESSION: No acute fracture Electronically authenticated by: NEMO CHANDLER Date: 05/21/2024 08:23
--- NOTE | 2024-05-21 07:44 | ED_ITS ---
HPI HPI - General Adult General Chief complaint: Extremity Injury, Lower Time Seen by Provider: 05/21/24 07:18 Source: patient Mode of arrival: walk-in Limitations: no limitations History of Present Illness HPI narrative: Patient presents to ED complaining of left knee pain. He said that he has been chronic issues with that leg and last night he was out on the porch reading he went to come in the house and he got a sharp pain in the knee which caused him to trip and fall. He said he landed right down on his knee. He said he did not hit his head or lose consciousness. He did not have any upper extremity injury or hit his chest or abdomen. He said all of the weight just went onto the left knee. There is a small abrasion on the left knee with swelling and tenderness. He said this happened last night around midnight. He said the abrasion is not from last night. He was icing it throughout the night with no real relief so he came in to the ER for further evaluation. No other complaints at this time Related Data Home Medications ?Medication ?Instructions ?Recorded ?Confirmed escitalopram oxalate 10 mg tablet 10 mg PO DAILY 10/14/23 05/21/24 lamotrigine 25 mg tablet 25 mg PO DAILY 10/14/23 05/21/24 losartan 25 mg tablet 50 mg PO DAILY 10/14/23 05/21/24 meloxicam 15 mg tablet 15 mg PO DAILY 10/14/23 05/21/24 Allergies Allergy/AdvReac Type Severity Reaction Status Date / Time No Known Drug Allergies Allergy Verified 05/21/24 07:47 Opioid HPI Opioid Management Most Recent Opioid Data: Last Pain Scale 8 05/21/24 07:46 05/21/24 Last MAR Pain Assessment 05/21/24 07:46 Review of Systems ROS Status of ROS 10 or more systems reviewed and unremark able except as noted in history and below [facility] Medical History Low back pain ?M54.50 - Low back pain, unspecified (ICD-10) CPAP (continuous positive airway pressure) dependence ?Z99.89 - Dependence on other enabling machines and devices (ICD-10) Sleep apnea ?G47.30 - Sleep apnea, unspecified (ICD-10) Smoker ?F17.200 - Nicotine dependence, unspecified, uncomplicated (ICD-10) Hypertension ?I10 - Essential (primary) hypertension (ICD-10) Surgical History S/P inguinal hernia repair ?Z98.890 - Other specified postprocedural states (ICD-10) ?Z87.19 - Personal history of other diseases of the digestive system (ICD-10) History of surgery on lower extremity ?Z98.890 - Other specified postprocedural states (ICD-10) Social History Smoking status: Never smoker Little interest or pleasure in doing things: not at all Feeling down, depressed, or hopeless: not at all Exam Narrative Exam Narrative: General: alert, no acute distress Cardiovascular: regular rate and rhythm, normal peripheral perfusion. Respiratory: Lungs CTA, respirations non labored. Extremities: Tenderness in the left knee anteriorly. Abrasion to the skin of the left knee. Mild swelling to the left knee. No posterior tenderness no calf pain. Normal distal pulses. Neurological: oriented x 4, LOC appropriate for age. Constitutional Vital Signs, click to edit/add: Last Vital Signs Temp 98.5 F 05/21/24 07:37 Pulse 55 L 05/21/24 07:37 Resp 20 05/21/24 07:37 BP 112/85 05/21/24 07:37 Pulse Ox 98 05/21/24 07:48 O2 Del Method Room Air 05/21/24 07:48 Course Vital Signs Vital signs: Vital Signs Temperature 98.5 F 05/21/24 07:37 Pulse Rate 55 L 05/21/24 07:37 Respiratory Rate 20 05/21/24 07:37 Blood Pressure 112/85 05/21/24 07:37 Pulse Oximetry 97 05/21/24 07:37 Temperature 98.5 F 05/21/24 07:37 Pulse Rate 55 L 05/21/24 07:37 Respiratory Rate 20 05/21/24 07:37 Blood Pressure 112/85 05/21/24 07:37 Pulse Oximetry 98 05/21/24 07:48 Oxygen Delivery Method Room Air 05/21/24 07:48 Medical Decision Making MDM Narrative Medical decision making narrative: Patient's x-ray showed no acute fracture or dislocation. Patient was given an Reuben wrap for comfort. He has a walker at home that I told him to use to keep his weight off of that is much as possible. I gave him a referral for Dr. Thompson, please call today to schedule follow-up appointment. He does have meloxicam and did not want anything else for pain. Return to ED if anything worsens otherwise follow-up outpatient. Patient and family comfortable care plan for home Differential Diagnosis Differential Diagnosis: Fracture sprain strain Imaging Data Chest x-ray: Radiologist's impression: ITS Impressions Knee X-Ray 05/21/24 07:41 IMPRESSION: No acute fracture Electronically authenticated by: NEMO CHANDLER Date: 05/21/2024 08:23 Discharge Plan Discharge Chief Complaint: Extremity Injury, Lower Clinical Impression: Left knee sprain Patient Disposition: Home, Self-Care Time of Disposition Decision: 08:40 Condition: Good Mode of Transportation: Private Vehicle Prescriptions / Home Meds: No Action escitalopram oxalate 10 mg tablet 10 mg PO DAILY lamotrigine 25 mg tablet 25 mg PO DAILY losartan 25 mg tablet 50 mg PO DAILY meloxicam 15 mg tablet 15 mg PO DAILY Print Language: Telugu Instructions: Knee Sprain (ED) Referrals: Adriana Downs MD [Primary Care Provider] - 1 week Abdiaziz Reagan MD [Physician] - 1 week
[2024-05-21] MEDS: OXYCODONE HCL/ACETAMINOPHEN 5MG/325MG 1 TAB PO (07:46)
[2024-05-21 07:48] VITALS: O2SAT 98
== END 2024-05-21 09:10 | disposition home or self-care (01) ==
PROVIDERS: Emergency Provider Emergency Medicine; PCP Family Medicine
DX: S83.92XA Sprain of unspecified site of left knee, initial encounter (principal); W01.0XXA Fall on same level from slipping, tripping and stumbling without subsequent striking against object, initial encounter; S80.212A Abrasion, left knee, initial encounter
CPT/HCPCS: 73562; 99283

== ENCOUNTER 2024-07-02 08:03 | Outpatient (OUT) | payer MEDICARE, SELFPAY ==
--- OUTSIDE RECORDS SUMMARY | 2024-07-02 08:16 | XMS_ITS | CCD ---
Author Organization [facility] Care Team Providers Care Newspaper Editor Managing Name Role Phone Adriana Mejia Primary Care Provider [phone] TOMI ESTRELLA Attending Unavailable ADRIANA MEJIA Primary [...] Brett Wilkins Attending Unavailable Jose Rafael MOREAU, Andsilas Wilkins Attending Unavailable Jose Rafael MOREAU, Brett Wilkins Attending Unavailable Unavailable Primary Care Provider Unavailabl BARBARA Alegre Referring Unavailable BARBARA BLAND Attending Unavailable BARBARA BLAND Referring Unavailable Allergies Allergy Classification Reported Allergen(s) Allergy Type Date of Onset Reaction(s) Facility (3 sources) patient allergy list reviewed by nurse or physicia Propensity to adverse reactions 9 Comment:Done [facility] Other (3 sources) Allergies Reconciled Propensity to adverse reactions Unknown [facility] Other Medications Current Medications Medication Drug Class(es) [...] tablet (3 sources) Opioid Agonist Start: 11-03-2018 [place] 325 mg-5 mg oral tablet 1 tab(s), [...] Status: Ordered escitalopram 10 mg oral tablet (9 sources) Serotonin Reuptake Inhibitor Start: 01-21-2024 take [...] 90 Tablet; Provider: Jackie Wright ( ) ibuprofen 600 mg oral tablet (1 source) [...] 08/01/2020 Active lamoTRIgine 25 mg oral tablet (9 sources) Mood Stabilizer, Anti-epileptic Agent Start: 11-01-2023 [...] at bedtime for 0 *Pick strength-form from [employer] for eRX* Dec, Active take 1 tablet by musa th at bedtime lamoTRIgine (LaMICtal) 25 MG tablet Take 1 tablet by mouth at bedtime Active loratadine 10 mg oral tablet (7 sources) Start: 09-17-2023 loratadine (Cl aritin) 10 MG tablet Daily 09/17/2023 Active Start: 10-31-2020 take 1 tablet by musa th once daily Loratadine 10MG Loratadine 10MG, 1 (one) Tablet daily # 30, 10/31/2020, Ref. x2. Active Oral daily for 30 *Pick strength-form from [employer] for eRX* October, Active losartan potassium 50 mg oral tablet (9 sources) Angiotensin 2 Receptor Brandi Start: 10-21-2023 End: 10-25-2023 take 1 tablet by mouth once daily Losartan Active 0 .ROUTE .COMPLEX 90 October 25, 2023 11:28am TAKE 1 TABLET BY MOUTH EVERY DAY Start: 09-17-2023 End: 10-21-2023 take 1 tablet by mouth once daily Losartan Discontinued 1 TAB PO Daily September 17, 2023 12:00am October 21, 2023 1:00pm [employer]: TAKE 1 TABLET BY MOUTH EVERY DAY; Note: Source Status: Start; Refills: 0; Qty: 90 Tablet; Provider: Jackie Wright ( ) meloxicam 15 mg oral tablet (8 sources) Nonsteroidal Anti-inflammatory Drug Start: 12-03-2023 take 1 tablet by mouth once daily Meloxicam Active 0 .ROUTE .COMPLEX 90 December 03, 2023 3:38pm TAKE 1 TABLET BY MOUTH EVERY DAY Start: 12-13-2021 End: 12-03-2023 take 1 tablet by mouth once daily Meloxicam Discontinued 15 MG PO Daily September 17, 2023 12:00am December 03, 2023 3:38pm [employer]: Meloxicam 15MG, 1 (one) Tablet daily # 90, 12/13/2021, Ref. x2. Active Oral daily; Note: Source Status: Taking; Refills: 90; Provider: Jackie Hammond methocarbamol 750 mg oral tablet (2 sources) Muscle Relaxant Start: 05-28-2023 take 1 tablet by mouth three times daily as needed methocarbamol (Robaxin) 750 MG tablet Take 750 mg by mouth 3 (three) times a day as needed 05/28/2023 Active Completed/Discontinued Medications Medication Drug Class(es) Dates Sig (Normalized) Sig (Original) betamethasone 3 mg/ml / betamethasone acetate 3 mg/ml injectable suspension (4 sources) Corticosteroid Start: 05-25-2024 End: 05-25-2024 betamethasone acetate-betamethason e sodium phosphate ([place]) injection 12 mg Start: 05-25-2024 End: 05-25-2024 12 mg, Intra-articular, Once PRN Procedure, Starting on Sat05/25/24 at 1613, For 1 dose predniSONE 20 mg oral tablet (2 sources) [...] Transient insomnia; Translations: [Adjustment insomnia] Episodic Osteoarthritis (9 sources) Degenerative joint disease involving multiple joints; Translations: [Polyosteoarthritis, unspecified] 05-25-2024 Chronic Other aftercare (1 source) Encounter for [...] EAR INITIAL ENCNTR] Onset: 01-06-2022 Episodic Other non-traumatic joint disorders (2 sources) Pain in left knee; Translations: [Pain in joint, lower leg] 05-25-2024 Episodic Other screening for suspected conditions (not [...] Test Name Value Interpretation Reference Range Facility No Panel Informationon 05-25 Rowan Bojorquez MA 05/25/2024 4:18 PM L Inj/Asp: L knee on 05/25/2024 4:13 PM Indications: pain Details: 25 G needle, anterolateral approach Medications: 12 mg betamethasone acetate-betamethasone sodium phosphate 6 (3-3) MG/ML Procedure, treatment alternatives, risks and benefits explained, specific risks discussed. Consent was given by the patient. Immediately prior to procedure a time out was called to verify the correct patient, procedure, equipment, client technical support associate and site/side marked as required. Patient was prepped and draped in the usual sterile fashion. [facility] XR Knee - left 1 or 2 Viewso n 05-25-2024 Imaging Result: Bilateral standing PA and bilateral sunrise of the knees were imaged today in the office. 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 Lateral subluxation of the right patella is noted [facility] Radiology Study observation (narrative) [facility] CT LUNG CANCER SCREENINGon 0 01-14-2022 CT [...] SIMRAN MATIAS Date: 2022-01-14 09:21 Normal [facility] Coding Summary.on 01-12-2022 Coding Summary. [id number] G h0bWw+PGhlYWQ+BV8UDUM vI71qlZWegR4BI0nXAB0R GSUXZYJOLB5KYH1znYR2O BgnF5YahbMf QfoepMTqHA84NIm6ZVK0u OziSVlvrC6voJMuS3j1Ac VoUB23lH26JGtuAGFeDeY 3LjZpbjsgbWFy D1uhSdPtxHExVqp+PHRhY mxlIHdpZHRoPScxMDAlJy DavUomHG2lIh6fNESqONC vbGxhcHNlOiBj q3hqDUTnMZqeEI4cqIcmT 2EfgYP4HGFsd3g3Ya97cL I+MQFyIGM1qZjgYYscr63 3DrEeu8pnYUU1 cRZhXWqfBSI1V80hr8Z2N ZYpGIZkAGI4uXW6rL8ohI dfgovmG0VxkARoFoQ8VIY 2fGPdlC7boIjd nailzP9uLeb+M65NZZ2ZR PFTKW4JYkn7N8HqSuwkdZ I+LS19ERZdVY75oSOvxIA fz9bsuPq2RtNi PRWjWQV9vZpvZJdmz0FrM HKsX21dkITzu1J4FXCrnM comDLvCrZkgMQ0bK2nFBu qjubkk8erepph Eozlb1mlfc41cK38R19hB DxyURVoIZY7CTEeLABkmQ ezfr1txK9qEf0+QAppb4h fr5vqcBu5XqLy HUZlekUasLdnUAM2p1LwS g01E6FpuHrrc5IaYgh0sy 74aCEro4J5jTD6LDitHXY reU7gPUddPaH0 HJTfOrLvdG80pESpJBxjA q9stAzpgInuIP5kIZFfvt umEIWmiL8lNUNotESqgEs qIF3zXPFokwqr o059FcKmUXU5RQLveROcT 4CoaA2aDpBeHQPhHRLsF8 OpjZFfNWfrQ826POxsTdZ 0MXOkwkQrX3Pw OEYnqDukTcU1w2T3Od7Uo 8YgpuniZZM2SDvvOKL2Uo B0OtTvNmM6Z7ZtWzu4KCA foEqjZX7sZ7Rl HOLynrdrfninwCD8FTQtG QDjeV09zIKtIRfmKc5vl6 S8k692DCSuGCApmE42Db4 udDogMTBwdCBU mW1pibfme1smjenvBwIyO TMtEWi8RFi8QPDsaTrvZv QoEFG7XhG7DLP4wQJikP3 knFobhfthfC0m Oyc+K30vlA3eXNJ5RCK9b ygxENGyxnPxIF29TN05U8 RyPjwvdGFibGU+PGRpdiB knBhvYK4vRxTa l9jta3DjEZlpO1IlLZDjX RqoJnn1TSHbSEW8tZC1xC 6fJIKiMVhar0T0aVB2T4I qoaIbpr0xy8mr ZZNuDYeaO65olAUfs3O6M OFwxJH9CAGjwCecWmRwjO 93Oyc+SWCgfJtlp2QpZvs co9ywt5kjvSa6 NpWqTOUrdiExsYzuNJA8d 4FfLq50O38pDEgwCCHkFN FrIWYwBCKvmPitag2nnB8 wIi8+PGNvbCB3 nPC1xX6lJFFoGeL6CIdtM 658NwPqiGQnDhpoo2vyj6 aveYk3XuPgERWgxmQxbId yXYH3q1IbSf55 Y86nAQcnHOVoNLJvJWEoZ ZPuiUzdia8isJ1bQi2+PC 2jr8czda90bR17mKR+PHR hBEN0vEpmWSry AHZcbF7mIYncAeB7OXRtJ rWuyB79iWSzFGesHs7lwM djoSxdFK8lBEZxicokj42 9ZbIvo0ygIRPs tXMoKXmhPJU0R26bs7B9U GCxGFAvVKA0gSN9zQ6efN lnbjogbGVmdDsgdmVydGl kYTxzXFgxF864 IHRvcDsnPlBhdGllbnQgT jSoVMp7I7TfQna5JUNwuW xqJO7cgMPsEMokSy8scCn hbMyrUH9zAASs rhkfp672GsNrz8qgEBRxj MHjUWrxWZF5Z90bw9G1WF HwPZZjDNU3cUI7gC1hrLh nbjogbGVmdDsg lgDtjVvqXDloIPshH431T HRvcDsnPkJpcnRoIERhdG P7JU56NP93gTJde6Q8cWI 3F6IiGCOdrfdt ltjavNL1VBYcUBTlpQ68J i1mdFxtYg6dDTJaTCK9YP GsoASmG9AxfS8yBzIkWAN iIHHoX5GrcMBi GQagC615IYetScN2NKQwu dKtS6OmNWQkjVmbJiD4q7 F0Lw7FQ3H9RB54ET04wJJ vl5S5rZN6F3If WPAlpfgjawpobIO1UAUtL GDbdE29Mv5ckKsdWh5jDC TaBFC4SINxsADtY3QqqW5 yOiAjMDAwMDAw E6XhbODaAEjsC727KLwyC nX7GQBdoiNhD1CdGZEnoU atRtI2n8U2Gt3OSEx0GH8 6TK87tQVwz3M5 jFC0G1SfQGXpjcqwnsznb AO7SQTnFQIjpZ28Aj6mkB dkDv3xMVWkCJU0QTWkaGQ rL3CdhR8uGvBo WPAcHSXmI5ZzgKDoLNrrJ 165FHqaOlF5HPQtdwTcW3 NvIXYugEpbLiN9r6E5Pd6 HYHCuEE02UCE3 nIK9JX10CO98K3NzSdhlh GFibGU+PHRhYmxlIHdpZH RoPScxMDAlJyBzdHlsZT0 pDv6yHEYiTZCm fJfqmPUaZkVvn3rmIARfK FrkBI4oxTagY0IzbTQ7SW Wux8u2Hs87T30gL9SxzRP +CRHhlIT4pLX8 iG5qLeMqFwE1DCdxC878I wYmfZSrHqtto1qux6zbzN i7HgU5HIIvqmQwtNwiXGW 9d9KmIv34W34s IHdpZHRoPSIxNSUiIHZhb Dmlwj5ntT7sSo7+PGNvbC B2fNT4oS6wPiJeToY9JZd aA960ZdOccBBr Ydjhv1yql3bqdLl0BnQvF PQrlgYihTokIQU0x5IjHe 90L6RxqFehb4QuUuj1xw5 4lZVbn7X4aSS6 G9EbAGBwdakpqFKzsOczM O0dKDFofhgkRNGruP3uYU UoW1f8AlDjZnT0BSowD2F hadM9CDDcgKPz WRrlHHT2S70sm9E6ZPNmZ VGbAWU5aXT0gJ0abZxrlk ogbGVmdDsgdmVydGljYWw pLSmnH073UZIk xZykLEWglJ1oVZYedUFfg LrdJF8jRCEnoiypXpQBKf XGKcZGOECCM7hKCpGLOH4 0AK27tHRco3M2 xXY0L7LcQFTwlipegtgik YY5QUTcMUKunD70sKVwPX krMm9mo3G1s651FMOgFKH vdT49Ef5cvBqy FRQoxWKMlD2gbzepx9ruo cccCmNtJZRmWCy9SAw3DU CslUeyAvMeLQK4KnY5IKF 8wRLomO8dlWwe ufuohK9cSir+MDkvMDMvM Yp2WlgghBM+PBAjXZS4kI tlKLrzEXQxbH1aHYFwW4u 5VpJnNlO6BBtg V4BbVAFblhuxUh91bP7aX jJmOiI5DMqxT6DfhkK0ES NfiOOtEJedDZK9G16xo8R 8YNGjGAEpMEB4 oRN7zI5rlKrffdfynJIiq DsgdmVydGljYWwtYWxpZ2 37YAWbcEexQaJ8YNueAEG nXZ97SK48fCZf x0R4uTJ4W5JoCGJwgddaf onxzFH7MHLqKOSyjL20fK PwZWmgIe8rw5X8d392BWW nQGFwbB75Mg6r rUdmGHBnrHPVeR9sqlkvu 1ciaywcYqXeJMGePIe3VT f8FYNlaYazAwSnJFL7TbS 8BEP1qZGloK3s zSrlrivhlZ1iAwk+TWFsZ TwvdGQ+FAEsIGC1dFmhMY lkMHGsaC5pHPUiR5p4GqJ qXcQ1JTjnM8Hn XOKzmsjpXq51kK6dFzHrZ bS7NFgvR9JtdtW1KYPdsX SwBKwnCFD8Q54ya3E9LHI wPKZzVRW7zDU4 hJ5imSqyfcaqtWZkfTctk dUlrGxkKWteCRgzG606AI YolOkoZy79tAHqwMpemaV 3B0AaMdcpwBI+ VB62UKSbTK14bSMyrLXqe 4ncuLk7RtDqADRiCZR7yS qvWJodb3ZmEZLtC78juOO wl7W5CUGhcLqc fTSiUeNbfZZ8aN5aCIemv xhzi6nhjuyoOizkn3jyic 53tP10A24mOBihERJlZXR zMCUiIHZhbGln ss8hpP1rTo1+UYKvwQY2r KP2tD4rNhWbQgV2YDlgR2 41CwQpoQZqNmjdy3eiv8g skKv8NsMmIWWy ycRcbIjhZUV7e6ShPh00C 29sIHdpZHRoPSIyMCUiIH OkiDvohu8agH6xTw9+PC9 uy4nipk34fB08 dHI+IWVgAVM7cWoyFZynG MPipW3bZFshGpV7ZFNjSk RgqQ87sDAqIHrkUh0gxQb tbUstXA1lNKBw slunm721XxBbk1pyGESta ARfKWtwUHU2J95xr1O1KD OlIKWwCLF6uDO3iP3zsQd nbjogbGVmdDsg rmRquItcGWyrDSuhA801W TEfoMoxKwYxhZBgM3ywmq SKSB8qKggagUE+PHRkIHN 0eWxlPSdwYWRk aK8iLHVfY2p4GuTpWmJ2I LvwB8WludS1WNGmwQJbTQ AiaVCKuU9rnhzen6bcunh gIzAwMDAwMDt0 IXr6JKCshPxsZvPpDJV2J bD3HNK9lTNuhG1dtSqdks peaN3tEay+RklOOjwvdGQ +ZOYuITF4pFzj DYvmESNhkV6oMPZuA9h4S fEhEtK3EPycL2SigpW7JR HukLJpSHZwkHILzB7sawa td1bmdptfYxRc CKHmPDh5NDx6VYNkoDepD nNoLHQ4FjA2FDZ2eHMdbW 1cjVtedpeyjA2aBll+TVJ OOjwvdGQ+PHRk NDB2qLpbZNikOVKbxY0pV FVcY7s5EnFcEwX5POvaA5 BzmxG7ZFPiyDOcIJJawWI FuF3kqfjcz6vq pgfkYqBvWPNeQZc8LPw6S VGdpViaOuMhDNF6LbL2BR A3vDLvlA8qdDgduhdsgM7 wOyc+HIZ7EQL4 XE02EA28J8DwCibdsHTuv +PHRhYmxlIHdpZHRoPS naJZYtWgIruSveBU8uTf9 yZGVyLWNvbGxh cHNl (more content not included)... Normal [facility] Coding Summary. [id number] G h0bWw+PGhlYWQ+IX3IFAZ vD60gxLRtsX1GO1rMRT4F GQOCIBBMCY4IWN3wvHE6P LusX3VukoWq NaizpOZaVG52IEm3BGT7p OpdXRcdvH6hcPXaN3z9Dn TlHR09lL14VYpsJKEkJiA 3LjZpbjsgbWFy V9leUlSvxQWlRfp+PHRhY mxlIHdpZHRoPScxMDAlJy YsrJetFL3jKp9iCFWcVVC vbGxhcHNlOiBj m8woJWCpYBovLT6fwVzyK 5ThbCL1YJVou7k1Py44oP I+CJKpTRL9vKetYJtuc36 8ExUff8omJFP1 qBFnFRgiWIH3U66da0D3T YAhKSAqNAS8kQC0hN1wjG otwyltD0WmxZOuCyT2IUD 1qCTozO3mvRhq kybasG3gEzr+O66EKS7MC SMVCD6BErl8X4HgAndpjN I+ZF56HJDrCV29bATcxHV at2njcFk4ZiOo ZYKzDIJ7aCelBAwnp9QcI KLiO65acKXfc6T9LHCzgT zpnTEbTaWbeGJ5yO2kZNi dxkmne2rpcxut Kmbmp3tpfn56zR63K59hV WdgNSNoSTZ4EQPqMPTudP khpk6snK6lPi3+GJhvu9q yy5ofwPh7SrZn IFLcgoPscXqaTHR3g4FeX m44O0IpmNiou5MhMgv5es 42tTKwc7D6nEC1ULnbVPD coC2lCQiaNxY0 VMNpYtPekZ20oSVvIDrlU l2ljVssiYywNP4tPYAqwo hgRCJjpM7zXOZuwOBrgNa oXS0zRGMveqle u934EyQiVPL9KXLjqBNvN 7TxuO4bHpUvYROhZMKzC0 AliPHsLEvaI691DGluTnJ 8HNGoquUsP2Dd IHVztZlrFfX7y9H6Bn5Wy 7JwtjgaLEB4LUssCBI1Fy C3UuArLqK6H8RqHqb0XUY qqUmgFG0gK2Ug DIWyjoeemwikqFC9XXEhY PWzwW14oWFuZTsxXl4ol4 L7v980AMMiZIVunW97Qg8 udDogMTBwdCBU tS3nmgcsr8ejolmrKsZqN NKpMSk4MYt8PTVbjUxfXy VcGRV8YfV7DPL8nDPhqR9 ciJrdpurefS0h Oyc+E64omE9rFUW4OYV0k mfwZJNvpxZfDT73TU42H2 RyPjwvdGFibGU+PGRpdiB rxAxhHW5aZjEs z4mep6QlLUodF6OjKNPwD AleGyi4GXOpTPO7aSN2fQ 0iRBJiRHicb8V8tUY7B8M ttaAcwq6ki3su DNQlDMoaU58pbMClm9Q1Y XNnjNV0LQRhtEwvYnKoyB 93Oyc+BZTkoZkvq3PoCnh bv4zpd8jdiSv5 NsLqNBHkrsJqqDnuNLF4w 4RpDe03A12aRZgjYWFiNZ ZjLWPlZORwbHymnq5hsU1 wIi8+PGNvbCB3 lJK1qJ6rIIXdLlS2LYccV 193JdLulDWnDfitj9qnd5 arhWy7PsOyVSPmxsGgaQg yDBS7v6PxJe94 C41wKDskFYZmSNGnRGYfY BKzeArwug9guC6dNn9+PC 8nl9tvyu62tF03gTM+PHR yDSU5cLvoZWam YIMmpD1fAVvdKqY3LNMsB lWcjI23gSPlPTewXa3pmE oauQptSU3kJBMbhhmoq32 8AtUyi4vuIUTw zSHhTGvpQDC8R18pz0V7P NDbYDYmIST9lHO0qB8yoT lnbjogbGVmdDsgdmVydGl kGRlnCUwrU065 IHRvcDsnPlBhdGllbnQgT zEgEIo8Y9QsMgg7BFPlhM vtQW8ihEBbSVmuFl9luDp hmXyhBC2tBEMu nfwgp870LaBhg5apSZXrd KTtTJnwRUZ2I77zd8W5II JmQDZfZHI7yCW6aG2fgFn nbjogbGVmdDsg pvZkxJhsJBlzKOkzQ081G HRvcDsnPkJpcnRoIERhdG B9RA19FY76hKJnf8I3nUM 1R9DtBCCykcfb oftubZU5FSJuXEIkyX60B n8ymKtyNh0vTWUhXQW9PK XdbQKjM1DaxW2gDiRrIAD cFEJiF0CmeXIu SKctX233SVvaCsY4XNJxs mUpC6EhEVIutMaqUzJ2y2 A6Qw1DT8A8EL47FK59fPQ qj1X8xKJ6N5Hn IRKcoqktsdstxSO9PCTlI VIwqQ54Gq8atJnnFl2vTP BqVUL7BRSzaKAlG8WioA7 yOiAjMDAwMDAw Z2JfdPHzGOsfA784ZNuhQ qR5NGVpogArB0HoFMLgrV bgIcZ1d7U3Uf7ZEWd2OW7 8LM57vJHaa1K2 uKT9S7OkYKFkfnqwicfik HY9BWHvJIEvkR36Tj5yvL wgUx4pPSYxKII1SEIgjUQ oA4XskR8iGyCt TBZyZZYjL2WxpTDmLHtrL 492SGegHmX2QBOnyuSsS8 KxALEftAmqPmC1l6X2Ef3 QTQBzJM56QAR0 qOV0GU47YZ38U5XyVyujn GFibGU+PHRhYmxlIHdpZH RoPScxMDAlJyBzdHlsZT0 bYo0bQDHcXWDr dRlmnUSoMaCkv7ilQMZcL AysRL1olCiyX6PtaEN0LR Ypv1i0Eb54X08gU7UsaQT +ZWRdwXV0kXV9 jS9tMfRtQaB1REgzM643S qUzlMFlOxfwx8jny8xsgS i8WrQ2SCLbjrRpuQfvTEX 3k8DtAe53T11j IHdpZHRoPSIxNSUiIHZhb Zkehj2hlK8nRn6+PGNvbC P4lAC6yA4qQuFuElP4XTd xL886FsYxvRYq Fupya7etg3npxIq1NnJmX RNpdhHqrBctHCW0c5KrSs 55E4BszJyym4GlKsr0lw1 1aVIny2R4cJI1 P7UkRJDmzjzmtNTprKpoU I3eWBEjpwzeCIAyuN8dZL HxE0o1OvZuVuW9XCxsI8A usgS0DLBcxANb PMmmGYC4A33rt6W9DWQyN REhMSH5gBL7pR9nyBubsg ogbGVmdDsgdmVydGljYWw eGFeqC546ITOe bSphULCwfV1uJWVnoJJkg XoyET3xWLJpoagtWlIXOl ECDzQQBAMGE4qBWoTOQU0 2YM07sHLct9X5 vVE3P2SgZWHrckybdxrqg BP4NDRfKHCbcQ10wHYsKE jbAe1ja1H5v753QHYhNAX llJ10As4dhDap LRYyiFXDsN5zebarx6gfx odnTqPqHMTsYAu9ZGh6ZS CkcCssCnWyUOK4QgT3JGG 2qRFsgN1wjUrg qnyruN8bNme+MDkvMDMvM Ti2GzuuwOM+HSGaBMU2yA slBRrdLQKjeY4jVNFpG4s 9SjOwUmS8AYjb H1McGBNuqeshFs30fG0sK zStTxT7MMegF1RrriC9WV LhwCGmIUviDLE6G70eu0F 1MUPhJYJuIZL0 xYQ8xZ4thHthnbofgWSte DsgdmVydGljYWwtYWxpZ2 43OTYkhQjbQuA9LLtoJOF sWP51WJ41aWGc q1M6pNV4E5BpAOMfvvrpe lwlwRM8OVYeSGOcuV28hY KyHMpmQu6cj4K3e926OMA sNGAfqJ81Fv5u yClvOEOywPJTlH4pohuzv 3zuwfuvHtNqSYCkGIk6OX g3YMNpqJqpUsXnWBP1MzC 0VTJ2aMSavU2k gRfcsxygrA2vSur+TWFsZ TwvdGQ+FIHgFDJ3dZcuSQ heYDVylB2nKSJgO8f4KhS rRuL4XOpzQ4Hp GOXqpuqnXv31gJ3zLuVmX xO7JSsdZ1ToxmQ2UAVocE EiTVmpAKT8C86lm2J3QOX oWBMnIQD6pDA0 mZ2vaMwfszycfEPwfLglv jHkvWfcDCbsPTcwN027ZE YyyUikNbVeBTEtKG6tlMh vdGQ+FZ07cd26 B0FjBikkZod6TQIeIJE0j SS3vC5pPLBgBUzpo8G3tT M1U0XdfrOjik1gi5aeMGQ jDUciR89cyFVe t9A4MCJcsIE3TBUcwCnnB nXfyA55Vrp+PGNvbGdyb3 QyJydgo0iaq1verPl4TxU wJSIgdmFsaWdu UYQ2c8HqXe83V09fVPltU HRoPSIzMCUiIHZhbGlnbj 7ceJ8lTt9+GOGbuHD6dBT 2bJ1sMlHgQqD6 EYyzF630LoEdqMXpBohmj 7dir1oapOt5KkFoNNJvsg NicYpbILE9a0PvYb25F0J yzFhsz2KdOmi7 tr48wGZfp7H5mDF9P9BfC CYbfjjlvFHajZycEQ1xIN FrqllmHYNcxO8oIXZbE0b 5ShHtPtL8UBxq D8SosbK6VKAvhRJvZWVez LAAnD7hismyv4xgboahYm XxVZOnSUk1SRw0XLUbuNy jPxHeRWI4OdW3 SCA0sLXehC4boNrjoyznb G9wOyc+GKj0w0ychTRqDJ 7cbVP6RM49QN75fVHaj9S 2tLK0B3KpWCMe zbylncvdrNS1DIXtWQUut V20Fx4leRehOf4fBFAwJL R8NDIdhBZtY3XalR6iQiQ uCKXcTVQxJ7Qc gVNiDVctY448FOabTcT4D MQdubXuO6EcEMQutHufLw P4g0A3Vc3MIM76AO31ON4 3pXJnh5T7bQS7 S4CwAVWiuwgknghsvOR0O TJbWGLhsB30Em4jvGumQc 7zXMVlOIG7ALVovPYiF1Q qkC5oJiMjJTYb JUHsN9RazPXxGYrhO928W WpyQuZ3OAOcmyBnB1HjBD HtmJryRcF0s7J6Kz3JOf3 0GE13FC68hXXm j7T6uXH3E4SwLHCdkrqlv tqbvKU6PIKrQTLloK15Zl 1eiYijLr7dSMVeLPX4EKX mbRMrX0EhtT8y TrSbJPXlEJBhP4DepPFgW QlqJ209GUhsVqJ4RPIgco RmH2MoWJSqiRpxBnA2n7H 8Cs2PQCepvbf3 H6FjKrabxZG+PS08OFNbQ H40fDMgrRFkq0mplMn8Wt ZxDOPfYXJ8fAkyTIuni3M zMALmS80snLPs c2U6 (more content not included)... Normal [facility] Consent for Treatmenton Consent for Treatment [id number] .00CD:127 Normal [facility] Discharge Instructionson Discharge Instructions [id number] 1.00CD:127 Normal [facility] ED Clinical Summaryon 2021 ED Clinical Summary [place] [id number] ED Clinical Summary Person Information Name: MANNIE JARQUIN [facility] Age: 66 Years : 1955 Sex: Male Language: Korean PCP: ADRIANA MEJIA MD Marital Status: Phone: [phone] Visit Id: Visit Reason: Ear foreign body; [...] 01/06/2022 08:25:56 01/06/2022 08:25:56 01/06/2022 08:25:56 ADDRESS: [address] [place] [phone] PHYS DOC NOTES: MEDICAL INFORMATION: Prescriptions Given: New Medications Printed Prescriptions ciprofloxacin-dexamet hasone otic (ciprofloxacin-dexame thasone 0.3%-0.1% Otic Susp) 4 Drops Right ear 2 times a day for 7 Days. Refills: 0. Medications to Continue with No Changes Other Medications acetaminophen-hydroco done ([place] 325 mg-5 mg oral tablet) 1 Tablets By Mouth every 4 hours as needed for pain. Refills: 0. PATIENT EDUCATION INFORMATION: Instructions: Otitis Externa; Ear Drops, Adult Follow up: With: Address: When: Elizabeth Dasilvajorgenoris [address] [place] [address] 3, [address] [place] [phone] Business (1) In 3 days 01/09/2022 With: Address: When: ADRIANA MEJIA [facility] [place] [id number] Business (1) In 3 days 01/09/2022 DIAGNOSIS: Otitis externa Normal [facility] ED Note-Physicianon 01-07-20 ED Note-Physician Basic Information Time Seen: Kirill Simon DOCatina 01/06/2022 08:06 Chief Complaint pt had a beetle fly into his ear, states he was seen at [facility] and they flushed his ear with lidocaine but they did not remove it. pt here today because it hurts. beetle is in r ear. History of Present Illness 66-year-old male comes to the ED for evaluation of right ear pain and concern for foreign body. He states that beetle crawled to his ear last night. He was seen at [facility] where he states the squirted lidocaine [...] In 3 days 01/09/2022 EDT [address] [facility] [address], [address] [place] [address]- Business (1) Additional Instructions: ADRIANA MEJIA In 3 days 01/09/2022 EDT [address] [place] [address]- Business (1) Additional Instructions: Patient Education Otitis Externa Ear Drops, Adult Attestation Patient seen and evaluated by the physician legislative assistant. Attending physician was present in the emergency department and supervised care. This visit was performed by both the physician and an APC. I performed all aspects of the MDM as documented. This report was transcribed using voice recognition software. Every effort was made to ensure accuracy, however, inadvertently computerized rubber heel and sole press tender mistakes may be present. Appropriate healthcare PPE [...] 0.3%-0.1% Otic Susp, 4 drop(s), Ear-Right, BID [place] 325 mg-5 mg oral tablet, 1 tab(s), Oral, q4hr, PRN Allergies No Known Medication Allergies Social History Alcohol Substance Abuse Tobacco Lab Results No qualifying data available. Diagnostic Results No qualifying data available. Normal [facility] Comment on above: Result Comment: Elec tronically [...] Document Reviewed: 06/20/2017 Elsevier Patient Education ? 2020 [employer] Infectious Disease Otitis Externa Otitis externa [...] even if your condition improves. ? Take tyts-jjs-sdqkdal and prescription medicines only as told by your health care provider. ? Avoid getting water in your ears as told by your health care provider. This may include avoid (more content not included)... Normal [facility] ED Patient Summaryon 022 ED Patient Summary [place] [id number] Patient Discharge Instructions Person Information Name: MANNIE JARQUIN Age: 66 Years Arrival Date: 01/06/2022 07:57:27 Discharge Diagnosis: Otitis externa Primary Care Physician: ADRIANA MEJIA MD Provider Information Primary Provider: Kirill Simon DO Advanced Bartacker:Ramon Gauthier PA-C The exam and treatment you received in the Emergency Department were for an urgent problem and are not intended as complete care. It is important that you follow up with a doctor, nurse practitioner, or physician?s legislative assistant for ongoing care. If your symptoms [...] Follow-up Instructions: With: Address: When: Elizabeth Veliz [address] [place] [address], [address] [place], [place] [phone] Business (1) In 3 days 01/09/2022 With: Address: When: ADRIANA MEJIA [address] [place] [id number] Business (1) In 3 days 01/09/2022 In the event that this physician does not participate in your insurance network, please consult with your insurance company to find a nearby participating provider. Patient Education Materials: Otitis Externa; Ear Drops, Adult A MESSAGE TO ALL PATIENTS REGARDING OPIOIDS PRESCRIPTION OPIOIDS: WHAT YOU NEED TO KNOW Prescription opioids can be used to help relieve uqaatqrq-ks-ukgmde pain and are often prescribed following a [...] content not included)... Normal [facility] Auto Diffon 01-03-2022 Basophils/100 WBC (Bld) 0.5 % Normal 0.0-2.0 [facility] Comment on above: Order Comment: Order Added by Discern Expert. Performed By: #### 1 [id number], [id number], [id number], [id number], [id number] ####[facility] [address] [place] [address] Basophils/Leukocytes Auto (Bld) [Pure # fraction] 0.0 E9/L Normal 0.0-0.2 [facility] Comment on above: Order Comment: Order Added by Discern Expert. Performed By: #### 1 [id number], [id number], [id number], [id number], [id number] ####[address] [address] Eosinophils/100 WBC (Bld) 3.1 % Normal 0.0-8.0 [facility] Comment on above: Order Comment: Order Added by Discern Expert. Performed By: #### 1 [id number], [id number], [id number], [id number], [id number] ####[place] [address] [place] [address] Eosinophils/Leukocytes Auto (Bld) [Pure # fraction] 0.2 E9/L Normal 0.0-0.5 [facility] Comment on above: Order Comment: Order Added by Edgardo Expert. Performed By: #### 1 [id number], 7881752, 6110582, 3680104, [id number] ####[address] [address] Lymphocytes/100 WBC (Bld) 19.8 % Normal 14.0-50.0 [facility] Comment on above: Order Comment: Order Added by Discern Expert. Performed By: #### 1 [id number], 6334738, 8014785, [id number], [id number] ####[address] [address] Lymphocytes/Leukocytes Auto (Bld) [Pure # fraction] 1.2 E9/L Normal 1.0-4.0 [facility] Comment on above: Order Comment: Order Added by Discern Expert. Performed By: #### 1 [id number], 6538974, 9617877, 6709428, [id number] ####[address] [address] Monocytes/100 WBC (Bld) 13.6 % Normal 4.0-14.0 [facility] Comment on above: Order Comment: Order Added by Discern Expert. Performed By: #### 1 [id number], 4056825, 0311556, 0241718, [id number] ####[address] [address] Monocytes/Leukocytes Auto (Bld) [Pure # fraction] 0.8 E9/L Normal 0.2-1.0 [facility] Comment on above: Order Comment: Order Added by Discern Expert. Performed By: #### 1 [id number], 2767630, 9544808, 3349234, [id number] ####[facility] [address] [place] [address] Neutrophils/100 WBC (Bld) 63.0 % Normal 36.0-75.0 [facility] Comment on above: Order Comment: Order Added by Discern Expert. Performed By: #### 1 0372514, 2064964, 8502183, 6014751, [id number] ####[facility] [address] [place] [address] Neutrophils/Leukocytes Auto (Bld) [Pure # fraction] 3.8 E9/L Normal 2.0-7.5 [facility] Comment on above: Order Comment: Order Added by Edgardo Expert. Performed By: #### 1 [id number], 6629964, 3595978, 9213514, [id number] ####[facility] [address] [place] [address] BMPon 01-03-2022 Anion gap [Moles/Vol] 11 mmol/L Normal 6-16 [facility] Comment on above: Performed By: #### 1 [id number], [id number], 4533096, 4509736, [id number] ####[facility] [address] [place] [address] Calcium [Mass/Vol] 8.9 mg/dL Normal 8.9-11.1 [facility] Comment on above: Performed By: #### 1 [id number], 3539511, 1184131, 2628659, 79036227 ####[facility] [address] [place] [address] Chloride [Moles/Vol] 104 mmol/L Normal 101-111 [facility] Comment on above: Performed By: #### 1 [id number], 0172004, 4525116, 6044784, 99831501 ####[facility] [address] [place] [address] CO2 [Moles/Vol] 28 mmol/L Normal 21-31 [facility] Comment on above: Performed By: #### 1 7766618, 9285121, 5256863, 0516465, 35200769 ####[facility] [address] [place] [address] Creatinine [Mass/Vol] 1.3 mg/dL Normal 0.5-1.3 [facility] Comment on above: Performed By: #### 1 5265911, 0223487, 0962834, 9911196, 75287867 ####[facility] [address] [place] [address] Glucose [Mass/Vol] 102 mg/dL Normal 55-199 [facility] Comment on above: Result Comment: If t his glucose result represents a fasting glucose, interpretation should refer to the following reference range: 55-99 mg/dL Performed By: #### 1 1086083, 7027523, 8499566, 9537688, 70864462 ####[facility] [address] [place] [address] Potassium [Moles/Vol] 4.6 mmol/L Normal 3.5-5.3 [facility] Comment on above: Performed By: #### 1 1813979, 4609446, 8615082, 4136993, 52060602 ####[facility] [address] [place] [address] Sodium [Moles/Vol] 138 mmol/L Normal 135-145 [facility] Comment on above: Performed By: #### 1 5479508, 9753325, 4048778, 9822348, 34164449 ####[facility] [address] [place] [address] Urea nitrogen [Mass/Vol] 22 mg/dL High 5-21 [facility] Comment on above: Performed By: #### 1 0686762, 5401701, 0295481, 4228351, 76896854 ####[facility] [address] [place] [address] Urea nitrogen/Creatinine [Mass ratio] 17 No Units Normal 10-20 [facility] Comment on above: Performed By: #### 1 9000447, 0662989, 5582735, 9574912, 24959691 ####[address] [place] [address] CBC w/ Auto Diffon Erythrocyte distribution width (RBC) [Ratio] 13.7 % Normal 10.9-14.2 [facility] Comment on above: Performed By: #### 1 0067543, 1280119, 4632341, 8969017, 89437057 ####[address] [place] [address] Hematocrit (Bld) [Volume fraction] 42.1 % Normal 37.7-49.0 [facility] Comment on above: Performed By: #### 1 7089601, 0467191, 2451119, 4725526, 76140315 ####[address] [place] [address] Hemoglobin (Bld) [Mass/Vol] 14.3 g/dL Normal 13.5-17.5 [facility] Comment on above: Performed By: #### 1 8742844, 4070742, 2929285, 2223485, 65237896 ####[address] [place] [address] MCH (RBC) [Entitic mass] 30.4 pg Normal 27.0-34.0 [facility] Comment on above: Performed By: #### 1 5273431, 2332136, 7685286, 9591955, 27020527 ####[address] [place] [address] MCHC (RBC) [Mass/Vol] 33.9 g/dL Normal 31.4-36.0 [facility] Comment on above: Performed By: #### 1 2611549, 1363958, 4676477, 3403233, 26476541 ####[address] [address] MCV (RBC) [Entitic vol] 89.7 fL Normal 80.0-100.0 [facility] Comment on above: Performed By: #### 1 2927040, 3348260, 7730153, 7199127, 85129909 ####[facility] [address] [place] [address] Platelet mean volume (Bld) [Entitic vol] 10.5 fL Normal 6.4-10.8 [facility] Comment on above: Performed By: #### 1 6960311, 3443345, 4372384, 6450530, 03733813 ####[facility] [address] [place] [address] Platelets (Bld) [#/Vol] 240.0 E9/L Normal 150.0-500.0 [facility] Comment on above: Performed By: #### 1 1149540, 4936578, 8327337, 6192427, 04629753 ####[address] [place] [address] RBC (Bld) [#/Vol] 4.7 E12/L Normal 4.3-5.9 [facility] Comment on above: Performed By: #### 1 9333125, 3085005, 8498160, 6954146, 64539299 ####[address] [place] [address] WBC corrected for nucl RBC Auto (Bld) [#/Vol] 6.0 E9/L Normal 4.0-11.0 [facility] Comment on above: Performed By: #### 1 5155177, 7194610, 1015299, 0707702, 17475920 ####[address] [place] [address] CHEMISTRYOrdered By: SYSTEM SYSTEM on 01-03-2022 Anion gap [Moles/Vol] 11 mmol/L Normal 6 - 16 mEq/L [facility] Calcium [Mass/Vol] 8.9 mg/dL Normal 8.9 - 11. 1 mg/dL [facility] Chloride [Moles/Vol] 104 mmol/L Normal 101 - 1 11 mmol/L [facility] CO2 [Moles/Vol] 28 mmol/L Normal 21 - 31 mmol/L [facility] Creatinine [Mass/Vol] 1.3 mg/dL Normal 0.5 - 1.3 mg/dL [facility] GFR/1.73 sq M.predicted among blacks MDRD (S/P/Bld) [Vol rate/Area] mL/min/1.73 m2 Normal >=59mL/min/1. 73 m2 [facility] Chem S GFR/1.73 sq M.predicted among non-blacks MDRD (S/P/Bld) [Vol rate/Area] 55 mL/min/1.73 m2 Low >=59mL/min/1. 73 m2 [facility] Chem S Glucose [Mass/Vol] 102 mg/dL Normal [...] for Treatmenton Consent for Treatment [id number] 207 [id number]#1 .00CD:127 Normal [facility] HEMATOLOGYOrdered By: SYSTEM SYSTEM on 01-03-2022 Basophils/100 [...] 3.8 E9/L Normal 2.0 - 7.5 E9/L FT HemeAutoSS HEMATOLOGYOrdered By: Shivani Saleh on 01-03-2022 [...] 2.0 ng/mL Normal 0.1-3.5 [facility] Comment on above: Result Comment: The concentration of PSA determined by different manufacturers can vary due to differences in assay methods and reagent specificity. Values obtained from different assay methods cannot be used interchangeably. The methodology used for this result was chemiluminescence using [employer] PSA reagent. Performed By: #### 1 9286743, 6370517, 5209909, 8827763, 82433468 ####[facility] [address] [place] [address] Physician Orderon 01-03-2022 Physician Order [id number]# 1.00CD:127 Normal [facility] eGFRon 01-03-2022 GFR/1.73 sq M.predicted among blacks MDRD (S/P/Bld) [Vol rate/Area] mL/min/{1.73_m2} Normal >=59 [facility] Comment on above: Order Comment: Order added by Discern Expert. Result Comment: eGFR is race adjusted. AA=. Performed By: #### 1 2817776, 7732411, 0941733, 4508027, 25437970 ####[facility] [address] [place] [address] GFR/1.73 sq M.predicted among non-blacks MDRD (S/P/Bld) [Vol rate/Area] 55 mL/min/1.73 m2 Low >=59 [facility] Comment on above: Order Comment: Order added by Discern Expert. Result Comment: [employer] asia kidney disease could be indicated at eGFR's of less than 60 mL/min/1.73m2. Kidney failure is indicated at less than 15 mL/min/1.73m2. Performed By: #### 1 1286893, 9423926, 1438277, 1665207, 58152056 ####[facility] [address] [place] [address] Coding Summary.on 10-17-2021 Coding Summary. CD:[id number]:[id number] G h0bWw+PGhlYWQ+NH1OCJN kJ79qsBMuvH3YW2jODP3O JKAPJZAKSW1NGH7bmME6Y CimR3RhsoBh SgvdtCSvCO63OWv5MNR4r BgrNDsifB4ilYYwG7m6Tr RbPW58sC53UAszYHSaOpS 3LjZpbjsgbWFy W1xmMhVhnBBtScz+PHRhY mxlIHdpZHRoPScxMDAlJy OsrMdmOO1wOi1jIHJtCIQ vbGxhcHNlOiBj j3zsCJVmFWteNV8lsRuzT 9UfoGU3VLMlz7r1Tp84cY I+UNIeYDX1ePklPLqyv52 9QqSkl1tfNCU6 kCHaZFemDFL6P21xp4K8X ERcOYHjSYT2tRP4aF0wzR dbdacnS5BbiZKqQrH2AGF 7tODagN4teNro zticoP6qHyn+A00GCF9RE YKTKU0BAof6P7NwXhpsfV I+NK72EDNoSB37dQTavOH rs8bmbOz1UqDn LUQtBCP8oVguJLjhd9MnC LTlR20dzEGau1E7PUOicD hfeONtMfTbpIB1bJ8rQXq wgdhpi3snxvxl Wgcdu9ubmt75hL54Z40oN CfiDINqUAM6FIIwWAUbiF lzax1ftN5gPs2+DEqaz5y ec3jzjFk5FaOa TCWokjHfhFrwNUV9u1BuH g08W4EuuZkqa1PuEhw6zs 53qQVkg4O5qOW3LJzdCMT wfJ1kZZhrJsI4 QIInFuXbjJ35gKGoDJboU w3ajVpezCguCH5mUJIspp feQJKefU7hQBMdwCIbqIz tBQ0gOQYwkjms m948CsSbXAV8CCTcaGXtE 9SbiE1tUvDmXLPdAXZhQ9 GirGFxFQuqP415YHryVcJ 9TLEjewRsV5Ji ONElwAkgXsU6w7O5Hp8Ok 5ThdqtoQYV0TZfkKZD6Pi L3HoAbNuN3B3BrPli9YRU dnMfbPW6qI0Or TPOikgrhbpnukTX4USOpT MCloI81sHWzVXmmZu4lf9 O2n296RRSoUHLobG48Cr4 udDogMTBwdCBU qN8bxjugr0ixtdwmYnNlR CHaCVi3YMe5YWEmaUtnSm AmUQT7QeS6OBD0jZFifX3 yrAwhlugqqC1k Oyc+T25yjB4eNXO7DHV8e jikHQIvbdPbTN17MY96T6 RyPjwvdGFibGU+PGRpdiB vzTvaTE7tKkGr b8dgn6BqIXygS6TlTQWaH NebNki7ASOxSVW2zRI1lK 4xSERaPLmhf0A4nMX5E9T jmoFehe5iq3qq OJEyAFojN47clOGei5D9F URpsJT8BUHpkDcwPcNjuD 93Oyc+WCWepGmmp1HuLet ky0zrn2mvtEe1 IsPdNXGgggTxsCdlOCN0z 9LxLj02E49xCMzrTOZmZA KqTLCjWPUjzMoqww7bxW9 wIi8+PGNvbCB3 cRK7wC8kMPDaLnF2UHulH 937UdFefGYpIqgvt3qsx3 yhbPj8HhQdARRwjzTdyPk pTGN0n0GuTx09 B21qKWbiLXEaGHNpACAeA JRbqFscqs4tqC1bLi0+PC 7cr3fmny32dG75gMH+PHR dVWZ0jFkeLGza JJVpfL7xGJcbCgS1JVJaA aCdwJ74cEScPXloHj1fkD jbyYpuTS7aBXOotyhkb89 1YhYmi2dvGBXl qQKfWWklOBJ4B60zk2X2S CUkVUTsGGF0hBT7oY6qkF lnbjogbGVmdDsgdmVydGl yDLfnZDgiR247 IHRvcDsnPlBhdGllbnQgT mZmLYn4E2ZwJvo9WJAycB hdEC0trBSuFVtcEy9boNw dnYskZM1kBFAz iugsh584RdMqy4zeZHAjy BFyVJhqLWA3E32mz7Y5FU MbBYEfNVR8tGV6rR3rtTk nbjogbGVmdDsg ljHudXweWFscKFedH392U HRvcDsnPkJpcnRoIERhdG B4HF05RP56gCMsa8S4oNJ 0H6MvVQUovitl ryzncIJ6HLIdVHKsbA81Q u1xcPnlBi5bYDGxYYS8EN RdaEXaM1EjkI5zMzReSQE vADNvF3PtnZIu WKoeE659UZmoGeU3TZQab jGcH8CfPQMdeWjdQxY5r9 O5Hv0GR5H7FZ59TM12lXI oo9W0eJA2E0Fa ACSzfifqtynkvWO4DPLkW CGklJ76Fl6ccXsqYf8fGS IvMWL9NLGyxRRqX2FuhU4 yOiAjMDAwMDAw N2TtjIInNMbwS746KJqcM pP3AQYeyvUcR5UxBFOpaZ pdPzE7s5V2Fe7ZOQs0EH6 9IY07uBZwk7N3 hUV5U1FlGXXpzggbuygfd QE4QMRmABMicU19Ml3ilJ yeQe1gNKEoCIN4IEZvuXP vE0HbmL2vIwHy RBHnYAVqY0XuzHMzLZwrA 207EShwMwM7WNOfyzIbX4 UsRHYzqPryWkU1m6T1Tu0 MLCIuQK54BCA2 iZI3LQ61RM06C1OfVtvxa GFibGU+PHRhYmxlIHdpZH RoPScxMDAlJyBzdHlsZT0 tIq0tZQMcYZCo cPlaoEXzYoMeo2qdEKZcH QboFI1qwBakO4HnjNQ5WB Amm0q8Ao51J91qP3NrdPZ +XIJnuMI8vVR3 fL4iTbXfJsC6VLicA180V oKqvADsVjrex6ygs3xlyM k8SnE6VYCcqcWwkKnfOUB 1i8OlZb20A07z IHdpZHRoPSIxNSUiIHZhb Wzuba3dkE0hMq4+PGNvbC J3jAS9iJ5zHeGgYwB7RTd gP798RbEegCVb Szlbn6ofo5ixtKi7BxWjC AXgogPedRmyGOY5z4QpGs 86L9DiwTjnf9KgYaq8zo5 8yFDqu3T2dNR0 Q5OuIITmrjineVQbjAxdR R0qYMNwmzfsASNioA0cOU GoN7l9ShTzMjP3PKgdK6H vloJ8NIQwbXQc YKsgQJT7N82ln0P5EXAvA FUrHCI5vFA3sB9ycItpeq ogbGVmdDsgdmVydGljYWw qNGkvO677PEVa xRmkQJQdhI2gSYEvfPBpb StdQL7yCIFcuawxYoCQCr HQFwTMSALXC9nGQmSAHU1 6ML79xMIsq6K5 sXG2X0FrCITdkimeqwrao CV4ZOWdJTXbdV78iGCxDK ryDd9ox6X2q253JRDfXKN jsX60Vx3epOzk KTAzpVSAuW5hdwbmk0pzl gmkZwYfNRGyLWp6JRl7UP EesGddRtWcCGE2EoD4BSO 5vKDzwU0rmKrz bswlpQ3mYjh+MDkvMDMvM Yr2MrbueYZ+UZDlKNK7lY fjLVdkORObbO7eDZIcO1p 4NoJoYsD5DXjz M8WpKEDzguwaCh69aD0wE oLsQdT6OLtyN9QrjrB7KU QfkEXyNQogXXR7V74si1N 3JWQcSNJhTHI0 lYS4yA4jyUixxxdcdGRfq DsgdmVydGljYWwtYWxpZ2 39INDwjAerInC2IDsmUDS fGR00NR47mRDl z8V4xGQ5D6QeUBEdwefzh avlkQT4NCPcUBSktD91rX XrFHczFa2bj4Z3y195YTS hCMOfaV30Bb8j hKylFVQpsUIYhR7kbusch 5psaixyCiLiTFBsWVg8YJ w7RAPxhZkiDvShSAZ5FbG 8PNS9nYYegW7q yJpstarzsZ8fDiy+TWFsZ TwvdGQ+PWWaNJN2lOsnMA ycSNOuiR2jEKLbE2i4HiS vAlS0PHpxA0Lt JAArjrblMi85mY2tPhTyF uW2DHgpI6MppjO7BKJkxV MdNSpzZKL4D16ic5O6UKQ zJOPiJNC0nFC2 rZ0pjEymenacsADteYzyb zCpgMxyHXloVLwjN011VK YvnRmrQv07iXHqoHvxbaL 5W4ToPqeygHR+ DC39ULNeSX68yKBwvUIlw 1qerXt6KoRhZNFyWHP8pM caDEmay4TdOBRmX83phAW ob6Z6MIKicNhk uEZlJnPkxOI8yX6wXZeyq ziac6qizysfUjwuq9ouwb 18hM22R23dCVtnPXXhPBV zMCUiIHZhbGln pl7siD3rLz1+DDFspMC7j SO1hP9pNsGtQaH8JYtlR1 24JkLyuBCaCwtai7lgv3r gzQi7JeNcUJAk mlJkjRohFRO9t0ZoOv31L 29sIHdpZHRoPSIyMCUiIH AwhNspvk9huU4eWu4+PC9 qp4ytqf02yH96 dHI+LXFhBDI0lJnmIYioE UCdkA5dEJccTbV4EWRtZn BrfG30vEXbITxtSa2ioMc mbIgyEC5rFXZr dhdxx267TfVmk8oiXSNun XIpLPccLPB5O76aa6V0MC BhEQDiRFV2iOY3aO5eqMd nbjogbGVmdDsg aiFhdUquNCnrLKjrF009B BPpeMfsKoHsdKBkG0zitl ALFJ7rDeiafZK+PHRkIHN 0eWxlPSdwYWRk aZ7hGMDrX8m6YvUbHbW4M UcoP7YqfaV3EVXedEWaEN RptJYQzM3fnrjdu1xuwpd gIzAwMDAwMDt0 OVk0CTBosTbkNwMvSVW2V zR9BPK8gEYboU9gmYkssz trgS6dHnu+RklOOjwvdGQ +DGEyGOU8aOgp YWniDYAurP4fYMAjN5j6N qYxVbS0OEuxM3PnezE7TB VnmEYwMKHpsJDPsZ1zfqn sp4zwyuqxMsGr MOWgMOn7VSc3EFChuFpvY xNlTBF4LcY7USU5nTSwsC 8syRyxaralwB5zEic+TVJ OOjwvdGQ+PHRk MYS3wIweQDbzSGUjlK9hG SEhK5k9OgOjFhK7YBayF8 PvgiF9PQOvjMXoAPOzgXB ZxJ3fxzzlh1nj rjvlZxHbSUTcJHh2NMf5U HEkxNkuYjJcVJM8HeY8DT P5sDAeuW2okPzoxkqlcD8 wOyc+UQG6XQU5 KJ52VU97J3RtVqpkjXYsg +PHRhYmxlIHdpZHRoPS xcEPNpJjEprGivFN3dPc8 yZGVyLWNvbGxh Nl (more content not included)... Normal [facility] Consent for Treatmenton 09-29 Consent for Treatment [id number]#1 .00CD:127 Normal [facility] Patient History Officeon Patient History Office [id number] [id number]# 1.00CD:127 Normal [facility] Sleep Office/Clinic Noteon 0 10-09-2021 Sleep Office/Clinic [...] PUL, LUZ MARIA Within 1 year [address] [facility] [place] [address]- Additional Instructions: Problem List/Past Medical History Ongoing Smoker Historical No qualifying data Procedure/Surgical History broke leg. Medications [place] 325 mg-5 mg oral tablet, 1 tab(s), Oral, q4hr, PRN Allergies No Known Medication Allergies Social History Alcohol Substance Abuse Tobacco Immunizations Vaccine Date Status Comments SARS-CoV-2 (COVID-19) mRNA BNT-162b2 vax 09/30/2020 Given Prophylaxis SARS-CoV-2 (COVID-19) mRNA BNT-162b2 vax 09/09/2020 Given Prophylaxis diphtheria/pertussis, acel/tetanus adult 12/05/2019 Given Normal [facility] Comment on above: Result Comment: Elec tronically Signed By: Kirk MOREAU, Beth Ramirez\.br\Date and Time Signed: 10/09/21 11:41 EDT Sleep Studieson 04-27-2021 Sleep Studies [id number]# 1.00CD:127 Normal [facility] Coding Summary.on 04-25-2021 Coding Summary. CD:[id number] G h0bWw+PGhlYWQ+ZK9GFMZ lV68scJHloG0QR8iMVW9P CXFIKTYHLU1FKP3mmJL4K InoC5SehwLl RzkknABeOY96URk7MSC9y FuoPMcmgW5ioSNeR5w4Zq YzBS74mK67LXdmOGCxDtT 3LjZpbjsgbWFy K0gjBxJooMXePtm+PHRhY mxlIHdpZHRoPScxMDAlJy VkmTigCA3iXf9tZMTbTMF vbGxhcHNlOiBj r3fkXYJxIJjfQL4onGgtN 9VktMU3ZLBey9n0Ck50cG I+DZYyIXK0lAmjNDosm89 1EeOpl2fkFCK9 xFRoGKgnMVY1A32gy2J5Q NTkZXGxJTT3gXJ0bC7azM wrnhwqK9FayBNkBpZ3IZX 9sINcsZ4noPcc lhdvqC7xUpc+Q51CSE9ZE OYYGC4JBsy8V7KkBlkzmC I+BC91UFLePX70eHZapWX la6lkpWb7OzYh HPQmAJM3mSbvBRvqz0VlN GQrH72adECjn5F1VSRolN uaePYcFwTrrJI3uH6hKHm kgunsa6siadzu Fshik5kimm67qI90X99kT ZofWKEzCWE0CFQdMGRglK zjri4mnN8dYm2+YOcfw7e vm2byrBb4ExIo PGUbbpCiqHdkZDN7j6HvH n85A5LqjChpa8SiFdt9by 41pXZsj0D9xPO1COabTIX yqA8zTUpnBfH7 FAVzRyPzxL66cWLtENutL b5ckEjfiXbtYR2eKATpum wrHXOqpY0eTIThcUSujFv kWA0jIJPoojfl t860HcIeFPK8WDDkpTVzC 0HanU0pPnInALNhRAJxP9 QwcXMuCJuoH125JVltUaC 8YGTvjaKfG2By ILKhnAhoSiZ1r2G9Jl1Bw 4LojhbkHAV2MWgdCZMcBr C4RlLyHgD0X7MiWmg1IST icDtjGE5eL2Ca XBRyaxyvteiwnWZ8MBSqI MTjeT21vUWpUTjxAu7tz7 C9j679KAVyQROytC69Bm4 udDogMTBwdCBU kZ7xuwglh8ltmfldNeGlK JRjISk0EXe6TAOzwUrlBn RkALY5MpS3OCH6nYMopO0 yeXscehpxeW2w Oyc+Y59wtU5wLRN3IAX2t kagXPAyxnTxNM70KG33B9 RyPjwvdGFibGU+PGRpdiB rnNwcKQ5qWaHt e1iqp1QmWHsyM1TlOYCzM NcoAtf2MGTxGUO5bLA9kU 5iBPKfEOqse7A6kGZ6P1T xsdDgns4fy7bl CFKpDXxyZ93bzYQmd6X1J DAuaHC5YGLzyCkcNrMrkQ 93Oyc+FXKebGdwz6VfZxl tt0drg1seyOu7 QsRvJQHzwlWwoXsyHPF0p 9KhVb22Y45qEZmkLUOgRT OiQANcIGXfeChsjg8hyZ4 wIi8+PGNvbCB3 rZW6aE9dOYOkKlB3RMzjX 115TbJmdCGyOjszk3kjj0 eirFw4TaHeNQBrfoQonKl vWLA6b0YmWe34 Z73jRBdwBBYjBZYiOBOwO SCsfLnzxh1irJ0sLv2+PC 1un0zyyz64zI39lJN+PHR aYMN3jVdiYXps NJUtfL7aSZjoMhE7EXGyS hGfjK65hIDzAIsaPb2vyQ ndeWaoFA0zCBSvmnkiq18 7WxDtz2dzMYEn iWBsLCweEAI3M96ca1K0S YBzZSHvFSI7mSP1bP0grK lnbjogbGVmdDsgdmVydGl cGFiaOGcmX309 IHRvcDsnPlBhdGllbnQgT oMdGZr0H8GcJvu8TISupV hqZM1nvSNrJTmzCs1cmIj xuYrbAW3qQJLj yptgi126KtUhg3qbZPTtt JZuMSabUBT8C53on9V6UX FfAZXmBQG0pKD9bM9csJo nbjogbGVmdDsg rhGxgMykQOtuUUxiF100X HRvcDsnPkJpcnRoIERhdG X6WG22DT93xCCvo5W0fOA 3R6UcGLTqqfss ughwrVF8AXZoJCFjcO14L f7fsWjrKs3tHEObIWX8CK YklQFsB9ZpaX0rBzBsMLC gRLGkY9LjeDVl ACqaP274PZkuEoP2ILOfp sDxT2ZcRGKtkMcdMrV5l4 B3Bx4VD2S1MW74GO66bUW by9N8aLG4Y9Ng BGWugyncfugrqQX1MSRqJ SPvzY17Oq8gdUjuMe9tDB GtIXP6ORYiqMIdA7WtyA1 yOiAjMDAwMDAw I1BmrTKfAQpqL794CFltS tS4GCKcsnLjU2NiGFNyqH raLvI5v1J3Gm3TYMw8WA4 3IM45wSFqy7T0 sXF1I8GlKZGkywzpnnwlb SE5LHOjTGSqmY33Za9jnZ bsLd4lYXTrSFC7IDCeuJP kP6HzuW1rGgLc JGErUWUwQ7HrePNjSIgdU 795OYrhTgG6RWBregYvE0 IhPKMkoGcvRgZ0k9G3Cy6 RTCWcSE84UYI9 qAL4KA53KK30B8HlVfxvd GFibGU+PHRhYmxlIHdpZH RoPScxMDAlJyBzdHlsZT0 fHb8wUFUqZTYn bFkihCZiZzAsu4toWHNkB GknAR4tuWtlH8KucKX0XQ Pyl7n9Wk97C39aW4TtlZI +JPWvpTF9tNE0 fX8vXhOdBuZ8AXwlX665C kWteKDmGwtsl4zyl9zmhH l9SxW2ILTdtbUetYyvWMI 3y2RsQr44H35n IHdpZHRoPSIxNSUiIHZhb Tqswj8xzF8oMd5+PGNvbC L6tDD6kH2iUuDxPgB9MWf aB480DyYgwHVe Raxrz3ohu4yqkWd6NsNrY UBfdwBsgUpgONV6s7MkIw 04Y9IkiFikk5XhWup0om3 7nSZen3S1qDM6 C0QaRFUnmxexsQHfaRnzR W4rPBXxthygMUVctI3eNZ WeJ3y9JlBrVbY8QEehK9O wqjR4HTPlyIEi FFdmCDY9W29le7R9CKUpD BGfTUV3uBT8nH6yrFumrh ogbGVmdDsgdmVydGljYWw gVTbbJ340SFFt lMxzTRRtgW8xVDAryQSfb UvmDR0sZTMxfdmyBtRPLe FXRtVYLKSTP4oOTqWVQJ1 0ST58uKZyp3T6 kLI4J4ToQEAoqykaxlmsi AN7WLTdWTAnaF90zMTtLD naXg7xc7Y5b620LWUyJPB jeM70Po4xyWpc AGUqmLQZeO9scicwq1tzh cwaCxRnABQvURm4MAa0EW IlpFvxMaDqTIT8ToO8DJA 5xLHexM1gfHkz ihfzgX3yQhj+MDkvMDMvM Ab1NvqxuWQ+KNCsSPS7qW guVWcaFAUxcQ6rHQZeO8n 2ErDwKkA2SDad U8KvYPYwbiwnXn07vW0uN dZeOzH4OLuyS2XlzaN9EE IxrSAwVUvuLQH7Z72ju0Y 1KSViWWYgMPK1 pFF2dC0bpEpvyhbwdVVvg DsgdmVydGljYWwtYWxpZ2 54RDRceSfeBfE9MYezDSI tOS09JW59uDHh j5G5iIG6Y7MnSPIfcsvqt zpdnBE1TJZpARMtqU89tM KzMPieEi9ti7N4y197HQQ tQANjtT23Su4d jWsrSQTqpTCPcX1hpugkc 7rnstbwIgSaUZJxBHc2AW q5VZRpxIrsJuWjPTA8BiB 8CPY1xGKnfC5o vFokilwhtC2iMbp+TWFsZ TwvdGQ+ZKLiXDS0hChnIJ uxPBWdcM5eIJPcH8l4NjI sHfO5RKlfX2Qe OHBvfsttRw49kN1xRtJwB oU0JTjuB8SmlrB1JSGnuB VoQXvoQOD0L60xw2N0BGQ yXPXfVYQ6hGG5 pC6qcHfyaiqduNQlhQpsm cTwmWstTJgsHRhqF533MF DnuJwxOn09iIOhcZutgcQ 5A8ZgGpumnXZ+ JK56YXBkGT45tWRwhAXod 0izuIc1AxHsURBbSJZ7mL quKManr0EsVSDmO65vvXG nr4T9OXSguQpz cEXnGuZvoRZ8nL0oVVxlw oxab5foebwfBesah3trvx 96oP85T08nSArxZWEbOQH zMCUiIHZhbGln vv1nkJ0eYe6+FNRuhLN2a IE4iH5mYjEtLoK1KJnhY8 86QlAeoQHjJojcw7yrt3y ptLu6YiFbMVUs hjNmhDuwVXG2x6BgLb16E 29sIHdpZHRoPSIyMCUiIH LqkPlhpe6dxG9tRv5+PC9 sq6onye81nS94 dHI+RKKjRVQ4wNebOLcfQ PImbD9uOFqbJfE6EEAvJa EzpS37wQWnYUxsMx6qsBr zcTooGU4oNGVq toura701NfUjg4diDCTsm PFjWHzsRKX3L77ik6X8KD OaETIfOSN6uSO2pE2mqSw nbjogbGVmdDsg reVbmJqxXClnNRbmQ984V XTbsZdmDfUfdTFvC3atwp IAAH5vRiansNG+PHRkIHN 0eWxlPSdwYWRk sD1rQOKzM9v2UqSwHvJ6O IafJ5HqavH1WCGdpDErTH OvxPLHkZ3yfazjl3sfyif gIzAwMDAwMDt0 AGu4NFKrfPukLkGjAHH8T zN8XXU7dNJfzJ2inRiffu dpcQ2uPtu+RklOOjwvdGQ +BTSuNKM7bZlt FHdqZFRcaM6sJSVzS3r1O yJnShL2RAdxM6XuefN1SS OnkKVqJSOapKQAtZ8howg nt0twxosgKnJw UZUwSAw9CWy9UIEeiEetZ aFfDOF0HyW9XJA3nEXswA 7lkMavgzidvN3jNku+TVJ OOjwvdGQ+PHRk UJF1jYiyRVoaRQBgxO5uK KRjO6h0XyAvKcB3CDhvS4 SvgrQ2GKWuaLCrMLDdgCP TtG1cdfoze0zd iygnQqJnVBYkVWe8NXf9D XLjlXccPwOqAUS1CpH4HD R0aJTuyL0evNhhodcufQ1 wOyc+UJX8JVU8 UC10KU32V6OxBaqkbZLiu +PHRhYmxlIHdpZHRoPS atORXuEvKauXmnCR9xTp4 yZGVyLWNvbGxh cHNl (more content not included)... Normal [facility] Prescriptions/Work Noteson 1 Prescriptions/Work Notes [id number]# 1.00CD:127 Normal [facility] Consenton 04-21-2021 Consent [id number]# 1.00CD:127 Normal [facility] Patient Eval Forms Officeon 04-21-2021 Patient Eval Forms Office [id number]# 1.00CD:127 Normal [facility] Patient Eval Forms Office [id number]# 1.00CD:127 [facility] PT - Consentson 04-20-2021 PT - Consents [id number]# 1.00CD:127 [facility] Patient Eval Forms Officeon 04-20-2021 Patient Eval Forms Office [id number]# 1.00CD:127 [facility] PT - Consentson 03-31-2021 PT - Consents [id number]# 1.00CD:127 Normal [facility] Patient Eval Forms Officeon 03-31-2021 Patient Eval Forms Office [id number]# 1.00CD:127 [facility] Physician Orderon 03-16-2021 Physician Order [id number]# 1.00CD:127 [facility] Sleep Studieson 2021 Sleep Studies [id number]#1 .00CD:127 Normal [facility] Coding Summary.on 02-23-2021 Coding Summary. CD:[id number]:[id number] G h0bWw+PGhlYWQ+PX4BJBR eO98foGLnvB3RD5sDLR9Q YAVBDISHJI4FFC0elYC6W HbfX2PjqbXw XfmmxWAaPQ35OPa1JMA8x IsmVGboiV3hwJFaA8s9Xm NfWJ22tE31USmxYDYmEsL 3LjZpbjsgbWFy G4poBhIkoYLpPci+PHRhY mxlIHdpZHRoPScxMDAlJy ZenLwoGD1vFa4sHRLyDZE vbGxhcHNlOiBj a3laZQEkNYwtHK0tkXsjR 5ZtrAH3FPQxj5n2Nc06xD I+DPIoFSA7dBgmMDdiv85 6VkBnj2cjRAU0 tQCrAZgcMEW5J44gn4G6O CSqUWHxFBJ9lNP6mF6obV sdfgqtO3YcpTBwTuE4IPY 7kBTxiC9lvLmd xvtllG8sLpu+T29AOP3IP EIHXT6SHtw1P3BiAebawQ I+KH15MPLhPW49dCSuiNJ gl1pqyOw9BvLn KQTlGRT1kSvaKQsef8BpQ MYpD49ywEUwc0F5SSYuqB ussWEcHcUfbGL1eM4tJBm ygkacu2kcbuii Vfiry9ghac71jE12A22pV IujZPVzWDN8OGPsDYXbbO tvin9hdV6lLw7+XExrp4e se6bpnAu2HbLy NMElozYreBqwZPT2y2QlN t37Z9ZejTxeg4QnDws0bd 75yYRkq7K8jKK0UYtjYYA yeE0jNPogRnY4 AQKuVkTlmH20eZQoVFfcX n5rsZbfsPtqTF9xJUIdyn ilQQYetM5rXLOboTQcyJc aMC8gYBGggyih h960WoNzJYW9AUWpzNDrW 6IwcZ3hYoSkRMHuNMRxB3 AknVGmOJnkX335VSenIbA 9IQNpmePhB8Ws PVTcqOtmLpH1k9U7Vs2Rq 6HbpitfYQW1ZXrfNCO4Mf Y9FpWkWpH4G7YmDvd9YXB yzJpzIS1mY4Pz XEVfhctehoenlQZ2DOKqE GQobQ37rPWzYWgzBh2em5 F0o854GOEiSOTnxC78Di9 udDogMTBwdCBU qC0ycuevp4hkrpanCvStP WVdAWz6GNy3OLAvpIkkSo CwVIB4CkN5TFK7xQApuE9 puVesqxndrN4q Oyc+X75smD1iTWJ2GKN1r ywlXNAttqMxHO51NU60P4 RyPjwvdGFibGU+PGRpdiB mkXeuED4iPfXd y2ysv5PbPBfrY0OjCJDcM ZlgQuy7UAUiTUW2uPY9kF 1oVXBlXPyqi4S4uUP7M1X jruEueg8kx7az YUByRDuaV97rtHBjk3J3A IQcgIO7DAZaxDkvIrJdgV 93Oyc+OJKwhMfgv7GkYof ei5lcw8psvLf8 BlSzERBszeOopQrgAEN3v 8DmMj22G10wPPttGPNtEQ EpOEXpABRmiZylfi3cmU1 wIi8+PGNvbCB3 hJT7wO2hZEYeDdZ0XBolG 962CmMqpMJiWmole2lay2 wawWw0FpUxJUMugjMywSw jYMH8d7FdPf84 H77qUKywLKFsADHzLUSsD IClqHaeit8nwL8bBp9+PC 5jz4qsdo49fO92pGE+PHR wNHR3hQwdLIlj UIMsbM8zZPdhAsF1TBOjF rAioP31zNSlNPwsPt1yhS ipxWcjMV8vMLEirkpap84 7GoAfw9ncNJDv fBLxMCszZBP5H13ay9Z2V QMmREGnHOG9fIS8tR0sgE lnbjogbGVmdDsgdmVydGl fYOirJFadK171 IHRvcDsnPlBhdGllbnQgT nAjXZu8X1YkHka1AHVshF fuLA6iePVcXMejJe0hrAp fyXfwVX9tKTNd ogyno601OgXop6ocDBYnu BQhMOhuRGM0Y94jf1O1WZ LrABXiGEP3nKZ5mY1bmIk nbjogbGVmdDsg xzWpjGmpYAhcFFuqA958B HRvcDsnPkJpcnRoIERhdG N2IN98IS73eTFic9R1oQN 9Z1GfGZNcnfkt oowdqVL2KHLzBYSnvS96L q9pzTehGb7iTBJxSOY2WS GbpAOnY5HxsD9iAsBwQPA dJGJxK6XygOFv HPmmX422NEneGzF9NVXry tQtN1OdJZEbqRwkMlO1a7 I0Il4JR9C9IF58UL37yRA ah9V4eCC9F6Ye EAWayutxajsfjVG1WHZyZ FRnrZ46By4giHcwBx3xZM ExXMX5VZBhkRLqB3MphV1 yOiAjMDAwMDAw K1BloFMwLPyuT184VPzrP vE8VRZngqDgE4XyVCQuhH fbCrY6w4J4Cl8NKZo9MW6 7UH04aNFgp6B7 jNL5H3KbIIGqpukrqjfkz EA2OJEmRMQhnB83Po3pgG jsMx6sKIYuUOB2RZHpySO fC2TqsO2bZuPt NHIlWQJvW2NwsBTuGObtO 712HGpjDxP9FTAswoHeO7 PuLPSxfKmpGbC3d0T4Ti8 DKQFfFP88TZX0 uFS7NL52JD67Q8YsQxuhe GFibGU+PHRhYmxlIHdpZH RoPScxMDAlJyBzdHlsZT0 fJd6pVHVpYGPs qZmxmDCrApIjb8upDGNbX NbsQA6otGkjH7PnoCX4LQ Tel8i8Dh66U61uH1FbtRP +ERMyvGX9fRG7 yV1xYwLcFsR3CBysR789I lCjgSQuMonem7gck6bdeZ t2AmU0QOLeqtQmlFyhNAH 5q5GgBu05M61g IHdpZHRoPSIxNSUiIHZhb Skgpt0xdL0xGf5+PGNvbC T0yER4wA2vSiZpWyZ5OKi rT951ZiKvxVUf Ocoaw2tpx2ktdYc2ItLmT XLycoQskScnUPA7v8GnKb 37D8RhuWpho4KfPbd7az3 8dMJaw3R0yDD4 A7RjJZCjmzsglDFccApjS X4fXHKwwwtkWGBqkT9aZW TbC0z7BeRkJxV2VTejS5E ubmO7KVVhaUDz RTciVEZ2X53nr6F6ICCfX TWzZVO5dAN3hZ3mxNvjee ogbGVmdDsgdmVydGljYWw hLFtkI283AHHe oCfzTNCjvJ4bOUXxzNBmt KgvMW7cZLIzahktOcWFDt SBRfSXLFAZC1tIZsZGDY2 5DS19uOAez3E0 yOH9P9WwAOSroseltytnn ZU7ZHOjYOGljR79tHKaDS pwCw9gl5C3k408GLBrXAG mqH54Dg1bdLro SVEpcWVMlS0zepeln9dkx iaqLqSmGIBfZEh8WIc1WC QrcKgnPlZdMLJ4FpP5JCK 5cFZfxH5zdZie cqabmX8fHjb+MDkvMDMvM Gi8VmrukMN+AEKhFXC7fJ ovXZxxDVUvwO8yLGBwX4e 7ZnCdXuQ8VWmg C2WqEBGefmnwNd52eC4xN lSzShB8TBacU2UgavU8VD FbbVBdRUvuCLV0U41ib9E 7UWVvDAIoPMG6 bJY3eX7onFfzizvadPBhp DsgdmVydGljYWwtYWxpZ2 46KRGxoTwnMwO6RNbwEBK pAE62UK13bCJl b2P7pHP5A4NdKORywjqmz gxejXF3WNXfMPMvqR84xZ QtQUpuVz3hx1B2y818HBX sFNXfvZ09Wa3e iLteMFJpqGZCcE9iphypj 1rokiopPfMkLUWoGAx3YR b7EANosJxvStUtYIC5CuT 2GPH3nLZexL9y lTwjfdxbaJ9fKeu+TWFsZ TwvdGQ+ZYKeHMC2qUjwJP toNFEihO0eXSMzP6v8RdM iUnT7DLdzM2Os XXNhpgonQq65fY2yTeSiJ iT0WOlaW7JnqaF4LZFlsC YeEDluVLE4Z47vr4Q3JHQ gGXLyTUT9pKJ0 fK0clSukocbroAJxxLtxi fRbtYobHOfaGOwwI031DA TopUyxBb87aXVmkFmgznA 7Y6EyCpcrqPG+ PC82ARDmYL08tLAmpQJun 5zshOg3UcVaQELpODD3jM buCUjtr9XfMNYhY39mxWA bz8Z3JBDhuUok lEEpBuTqsVL5fI2bMHjld ziqe9hlwjjxCdrna3jfjj 49nH17O29kYManKHKaUBR zMCUiIHZhbGln ot6ksH8yGl9+AKRtqUC2f OH5mK3xAuSwIlW0IMrbC8 23OvOxpXLiVbujb7qws3f tjIw1QgOpBAYf vtFngLykGVX3u5ZiFg91E 29sIHdpZHRoPSIyMCUiIH XmyDvcix0gzL8eRd2+PC9 yg2gjec83sB85 dHI+NRNoVBK1bTcfOUyhU QIfpC9rZQvyUqB0THFhGy UoiL13nCVwCRtlTq1afRp wdBmzAP1sJXLr kepfm408AzCin2bjTQDwj OCqGLxbMIQ6K27mg4Z8FW DgREUdIVN9dUN3oQ7ddWi nbjogbGVmdDsg fkVmvFmyDEjwXZwpR319J DTpeGtxLkVyuLWcU6abjo ONIH0bVfgdjVT+PHRkIHN 0eWxlPSdwYWRk fM0cMAYkX1p5VfMgQcL4Z VlfN0WimkQ1VBTfgODvRW DkhOXJjR3kqwoiw3nzclu gIzAwMDAwMDt0 DJu1SFHtoQfuOrDmXGG8O bX5FNE5sURqcP8frDvxib wqmO2aMji+RklOOjwvdGQ +ADXzDBS9eXhv WYxyIUGpzD3pRNYdG8n8Q cQkMdW2OJwaB4TbeqH9NL AwbHZdQDPiaQAUgR7qytj na4qnolaxOdLd XNNtOTz1ISy1WHHmtYrhW pXnUVW2SaU8JLH6nTDjvV 7ceFqkemctfQ4gHla+TVJ OOjwvdGQ+PHRk MRS7oWdlFMdxKYKibN3yZ ZOjV4m2WpOfKgC1LOyuT5 KtexR1HFJedVRxPOFrwDB CnM7koswml5mc epsrEuUqNSNaCJk9ZCm4Z XCysIbcLmNeIGU4JbR1MV Z9aSDdfU1uhSsybxhxkG9 wOyc+JMN5QEE4 OU36UN05L2PpDsxfjLCqx +PHRhYmxlIHdpZHRoPS vdGQXmXdUwpDiqYO7uSj5 yZGVyLWNvbGxh cHNl (more content not included)... Normal [facility] Coding Summary.on 02-22-2021 Coding Summary. CD:[id number] G h0bWw+PGhlYWQ+NJ7YYPZ qP19bjUApaV2RF7wIGJ4M MRBQFGKJYW1GHU0rbTF2N AieD8EpmtZp TtkohLJhJD50YEi1ABK4m ZmaTCktaF8mbDLlQ3v2Fn EoPF17pV58PGxoDAQtQzM 3LjZpbjsgbWFy X5suLsJryDBvKsm+PHRhY mxlIHdpZHRoPScxMDAlJy PjdBepWC8nEk4gUBDhMNP vbGxhcHNlOiBj j2tkJZGaDNxrGP5leDqaY 1ZxyUL4BFXpy4n2Do95qX I+WPPrXWY3sSmyAAcmj84 7FaOum8tgWJX9 tRKmHLugQWR5S19qd1B3V AOdJAMlNSE7iIT1zJ1wsH crkliaN0UpeOOcImF0QIN 6bMYyeY4emDjr wawfaK5nPwt+O17MBW7JB GYLWN3XXke1H7SlUxnftI I+AX86PWUkUX83aKUunMX iw5emdOo7UcYh PLDmKTL8bZiyVYdiu4MrC VVvQ15slDTfv2R1GGAkcK gwnOSkEuTxwJH8sS0rGVp gqippp3ehlglc Uvdqi7yzor92vG57Z38iS WvzIUEnSRI2USEcUFWarH gmdk3rcB9vQg1+OBgdz8g ps4qigZw3JgSl IQXnjbKzjNivICH7x2IuV u25H3XouEiij5VvRgy5bd 20mGOsy2A3rGV2RUohAVE krS2mWCjpIzC0 WDCzLjQikE81cTLlZVpuD k8beIuttIxzAF2hZTLzpj dgCPGlnJ9oXPDgoGXpfMd aHC0hNQFxofuv z727TwQaILX1JWLolPWpB 1ZfsA7cUyIzTXBuMXVuN0 UvqVXdUGmhI640BZphZxU 4VTYeboNyY8Pm GXNwrYgvUlN9f1W8Cl8In 8RjqzizQFQ5XWloDZF8Rf E3GeRqFlU0Y8OzFxc2FGN eoApkPK3oN6Fj RECthcvwkythaLF7VAZkK UZcsI31vKLcNLuzZd7xz0 G0d669DMFrVRPdsW01Vl7 udDogMTBwdCBU bR4zuqvvn4fqhhfuReDlR HZrHLs1CEv8GUGmqQmiXl XbJLH8PqQ2YKG1vYErvW0 irSdqweavfP8d Oyc+A33vzQ9mCCS5YVA8y mrsTJEtgmOkXG37DW13B1 RyPjwvdGFibGU+PGRpdiB zwSntOX5eTnHw w4hgb4EoTKdtT9HlWTDtT FmoSfe2TZVmCJB2xNL5xM 7fNOPtUUtic0K3wEW3A9X epnYwyt1tu9ah GUEcZZpbO73sxTHyd2P8R YGztYN7BFZbzMuyReCxiW 93Oyc+EQVacVgaq3ZuSsp qs0nfs7gaeXk1 GbBbKAWnipKuqFnoMBO6e 4FkUw19E20yOKxsHLWpNR PyKDNbJBQrwAlzet7gzY1 wIi8+PGNvbCB3 jCP7gM4dHRIyIoS1VKjlH 034WyYhbPQmFdrql8obq0 hdoLx4TpMoOFGxjmAbhGg aHFU6x3LpNq77 J78mVWuxSMCcZXZmIWBmD JItsSkdvd8raQ9aPd1+PC 1jg8qtqi18eM95cTI+PHR nADD4gTpoKUat ARMsjW8tUDuqDcN5WCVdE nFjlV95cRBbTOdeAe8gnA msvIwpBZ3bHZEndgfde66 8XtHql6qtSCPn vMRsXXueDXL1Z48vg1N2H DQnYKLbSXZ3bWA6kU9gbK lnbjogbGVmdDsgdmVydGl zQRluIIgtT567 IHRvcDsnPlBhdGllbnQgT iWyELm9R8AcGoh1KPVavG nqUC7mlLXsNWmrZx4vsDl deBccWY5tJGJa jxwyj897TgRab4kuFOIup DNsCXzoGOX3O73ea8X7OE PrXRYlCFW1vQX9zM8niNq nbjogbGVmdDsg qvEyeIkeDUnnXIiyB823K HRvcDsnPkJpcnRoIERhdG K5AU37VD97zBUge4E1qKK 3U7YhYZFirioa ojrooUY2OHBkGXRrnW81P e9ybAbkAy3sMGQlSIO6PA EacJDyH2TtkT1iIdDvZLK cECAaQ9YfpJXj RHgxE160EDbhQuP6HADtu dSmE8HsFWClyNioHqI8e6 B2Ur5UA4S7KE15LX18fFG xq3F8jCN3Z6Dl MUUqxgrntmxhvEE3KUYuT QFozD76Kh8ybHpcQu4gUY WiZMO3DXMjlADyD9HynS2 yOiAjMDAwMDAw U8OdpCWeHWvzI347ZBcaU nA1QERczvSoL1BsZMOyfC acDhZ6c4V7Uo6PGDz9HY3 7LA96sLKxw6Z9 gNS0Q2TvOIRzyectmxifr PO5EBFvQRYmvU33By6jxH dqVz8nXASrJOZ8THDnzLL eK7PssL1xStOl AQMoDBMjX1KprFPwFLmsY 980EFdwZaW4FSFvbkPfC4 AjCDPvqOfkDkQ3t8G4Ob5 RPWBaRS12GZO0 mHN8ZI14YZ94F0UuBeeio GFibGU+PHRhYmxlIHdpZH RoPScxMDAlJyBzdHlsZT0 lLa7qCUFiJHZh cYhefORlTjJay6miXJJvM OmtAE3ivEbiC9FfsZW3OP Rwk3w7Gw86Q63zJ1XvgGX +LPHtwWA0tTG3 nD6oGnJoLyC9NIrtI115Y yAwyJJiXnpux3vra1ncuT p9QnN5WLRhwzUtuCeoGYZ 6c2FlEi80T18e IHdpZHRoPSIxNSUiIHZhb Utqbd1biK0uWc8+PGNvbC L5jNB5yP1xWtHsTyZ8GAe eN682ApZyhIKc Acpio9gdp3vfsBf5LxQsO BTzzmLuzZmbFBW9s2YrFg 15P6WotXwrc9WiNqv0up7 0dZFmo4T6wDP0 O7BzCBSfwzdlmBLwlDanM G3tQZPsgqomEPHhyF8rQT IsY4m9OmCuJnU8URgpM4Y rpyR2LAUxgHEi SDgzJAY4H14yl9P5ZRVbM YOhAZA5sST7uB8lnSclpu ogbGVmdDsgdmVydGljYWw lVVeyX397JUMk iDrpBUKcyA5bQSAuxBEty PlfXV1vCJRwykdwOxTTEw MNRpADCRQKY3tCBhIZEU4 0VQ64fOEat4T4 tHK1H0QdCCMrarusswtxz JU3NPVlGSFjaQ53lRCcDV bsUv1le1N4y544DJKtZCB laM57Tp8jsXtc YNNuqGOZiJ3nolhhb1xhv zkiTjEaPILiYOd0ABx5NS WcjFknSxCqTXT0EbB0YLH 8vWXotD8odIie owjvuZ3nWsv+MDkvMDMvM Ev9GvmmfRL+EXVsETS3iV wfOLrnEJMvlG2cPJEsU3g 3AvKgDiW4MEey P6KnJGFvqfzuKr93dZ1jD cQaXgZ5XBdvL5NvtaF3OU DfrKByUUuiRQT3G70ii2E 7DARlWJEsLMC9 fLQ5lD2toFtxhdqldCGpf DsgdmVydGljYWwtYWxpZ2 70WCJanVftAnZ5WLheHKJ tMQ12FR23uIWk u9K0mMT4J6XqMDAknadtr vgusLX2GFAcEKRxfJ03nK GyJZheXp5ph3L5i413JAT rSBQzrK47Tu4u iGleSFDhbRUSdG1gcexmy 5cklbwvYoUuXLQuXWm2TJ o9OTGczXxtRgZhZCV5MxP 5YMD0cEWuhB3b xBopibnlbH6nEyy+TWFsZ TwvdGQ+FQKhWXB7vDqiHE enDPPkaD3bFDWoP1l9IxO uCiU8CRrnQ5Yv AKCuaxltFb07uS5dJrVqM uK5EEdzZ5WjmhP6ECXzeE NmYJroCJK0M90rb0S3HRH kCIPmMKG8gBX5 kM5ucNhzkkcckNYqqOzxf sXsdLnsMQtzDSvwK959ZA FhqGuaHg14yVScoBjktxC 3F2TjAiynzWI+ VV14LREoQF64wXGfkHZts 1bwpJd3SnBxUQDgOAK8fG pkYTldi4DlHCClS82keTA rj0C1JXAnjAdr fZHfTwKumRS2jO1qYKftq glij3gxdgezCoiav5jbmu 74wR51V16vFNbwKRBqRAT zMCUiIHZhbGln ss3etI2vGf8+CQIjbGH0x XM9gM8qRyTlDcO3WAyyS8 98LsJhtAKkKccoa4fkk2b hiRb8VtPtUWDk edFndCjtEVL8l7UyUp35M 29sIHdpZHRoPSIyMCUiIH RqlZjamp4vrD8nHj3+PC9 ha9murq69gQ76 dHI+NJHoRDB1tCvfSRsqH CJvkX8oNCmqZsP8TFKxLl OlnG29aDHfJJbyLu0qkNx ruKcgTU3rORXe qnpun776DgIpd0jxOCQse MXhZTwhHSK5V53kd9M9ST OnTNApHFA3tOR4rA4qbOj nbjogbGVmdDsg zkUysXvwLEkvYRcbV065P SSeyXvbMwCvbLQxY0fwuv UXCP4yYtderEW+PHRkIHN 0eWxlPSdwYWRk cB5tBUQqS1r9HfQbVmO4P LqgA8WhmrW2BNEyuZGsHG LueSSRpK9qvfkyr5siffj gIzAwMDAwMDt0 ZTq5ZBSgiCxvJvStJNQ5X vA2XFF9zNTeiJ8brXrhxq hebB1zFzn+RklOOjwvdGQ +ZSHbKTR2uPkz SMorJDXooE2sTHBkB5p8L eOcEnR7ZGnaR7XhrpG1HB TpcMRfNOBhlAXEvP1sbfs lu3afzyrhGsPb GHSxFSh1VJa8IYCwfJwwD kOtIKX3LsJ4PQS3hRKmcB 5wkXmzfzbbmR1bIbv+TVJ OOjwvdGQ+PHRk JFV7dPosKAecXVGnsN7aX OYoB2k0KqTnEcJ3QBwmU0 FsgwY8BLUurHGoJWDaxYS LbH3mgvljn7uk lyvuMaEnWUEaPSh8KVp5V NEqhJhvPsBgQLS7QuS6GW N0wTAwyX0kvLgextfwkU9 wOyc+KID0UYY4 RR52UD17U9HvCvaclNVjd +PHRhYmxlIHdpZHRoPS fpICXiEcSafJunVD4nBf8 yZGVyLWNvbGxh cHNl (more content not included)... Normal [facility] Patient Eval Forms Officeon 02-21-2021 Patient Eval Forms Office [id number]# 1.00CD:127 Normal [facility] Consenton 02-20-2021 Consent [id number]#1 .00CD:127 Normal [facility] Patient Eval Forms Officeon 02-20-2021 Patient Eval Forms Office [id number]#1 .00CD:127 Normal [facility] Patient History Officeon Patient History Office [id number]# 1.00CD:127 Normal [facility] Physician Orderon 02-16-2021 Physician Order [id number]# 1.00CD:127 Normal [facility] Sleep Office/Clinic Noteon 0 02-15-2021 Sleep Office/Clinic [...] MOREAU, Beth Ramirez, PUL, LUZ MARIA [address] [facility] [place] [address]- Additional Instructions: after his testing is completed Problem List/Past Medical History Ongoing Smoker Historical No qualifying data Procedure/Surgical History broke leg. Medications [place] 325 mg-5 mg oral tablet, 1 tab(s), Oral, q4hr, PRN Allergies No Known Medication Allergies Social History Alcohol Substance Abuse Tobacco Immunizations Vaccine Date Status Comments SARS-CoV-2 (COVID-19) mRNA BNT-162b2 vax 09/30/2020 Given Prophylaxis SARS-CoV-2 (COVID-19) mRNA BNT-162b2 vax 09/09/2020 Given Prophylaxis diphtheria/pertussis, acel/tetanus adult 12/05/2019 Given Normal [facility] Comment on above: Result Comment: Elec tronically Signed By: Kirk MOREAU, Avery GCatina\.br\Date and Time Signed: 02/15/21 14:[address] [...] Chino Mcqueen MD 08/01/20 Final result Normal [facility] No acute abnormality of the cervical spine. Multilevel degenerative changes. [facility] [place], [place] Claudio, Mhpn Incoming Radiant Results From [employer]/Pacs - 08/01/2020 1:22 PM EST EXAMINATION: CT [...] of the cervical spine. Multilevel degenerative changes. [place] EXAM[place]ATION: CT OF THE CERVICAL SPINE [...] There is no prevertebral soft tissue swelling. [place] CT HEAD WO CONTRASTon 2020 CT [...] Randolph Roman MD 08/01/20 Final result Normal [facility] Claudio, Mhpn Incoming Radiant Results From [employer] - 08/01/2020 1:20 PM EST EXAMINATION: CT [...] fossa. 2. No convincing acute intracranial abnormality. [facility] [place], [place] EXAMINATION: CT OF THE HEAD WITHOUT [...] of the visualized skull or soft tissues. [place], [place] 1. Streak artifact from dental amalgam limits evaluation of the posterior fossa. 2. No convincing acute intracranial abnormality. [place], [place] CT THORACIC SPINE WO CONTRAS Ton [...] Panfilo Middleton MD 08/01/20 Final result Normal [facility] Claudio, Mhpn Incoming Radiant Results From [employer] - 08/01/2020 1:29 PM EST EXAMINATION: CT [...] fracture or malalignment of the thoracic spine. [place], [place] EXAMINATION: CT OF THE THORACIC SPINE [...] SOFT TISSUES: No paraspinal mass is seen. [place], [place] No acute fracture or malalignment of the thoracic spine. [place] XR ELBOW LEFT (MIN 3 VIEWS)o [...] Randolph Roman MD 08/01/20 Final result Normal [facility] Claudio, Mhpn Incoming Radiant Results From [employer]/Pacs - 08/01/2020 1:11 PM EST EXAMINATION: THREE [...] the left elbow. 2. Minimal degenerative changes. [place] EXAMINATION: THREE XRAY VIEWS OF THE [...] The soft tissues demonstrate no acute abnormality. [facility] 1. No acute osseous abnormality identified of the left elbow. 2. Minimal degenerative changes. [place], [place] Vital Signs Date Time Vital Sign Value Performing Clinician Facility 05-25-2024 15:41-0500 Body height 181.6 cm [facility] [employer] Work Phone: [facility] 05-25-2024 15:41-0500 Body mass index (BMI) [Ratio] 26.41 kg/m2 [facility] Work Phone: [facility] 05-25-2024 15:41-0500 Body weight 87.09 kg [facility] Work Phone: [facility] 01-30-2024 10:58-0400 Body height 185.42 cm [facility] 01-30-2024 10:58-0400 Body mass index (BMI) [Ratio] 24.6 kg/m2 [facility] 01-30-2024 10:58-0400 Body weight 84.82 kg [facility] 01-30-2024 10:58-0400 Diastolic blood pressure 68 mm[Hg] [facility] 01-30-2024 10:58-0400 Heart rate 57 /min [facility] 01-30-2024 10:58-0400 Systolic blood pressure 149 mm[Hg] [facility] 09-19-2023 08:30-0400 Body height 185.42 cm [facility] 09-19-2023 08:30-0400 Body mass index (BMI) [Ratio] 25.6 kg/m2 [facility] 09-19-2023 08:30-0400 Body weight 87.99 kg [facility] 09-19-2023 08:30-0400 Diastolic blood pressure 72 mm[Hg] [facility] 09-19-2023 08:30-0400 Heart rate 57 /min [facility] 09-19-2023 08:30-0400 Systolic blood pressure 162 mm[Hg] [facility] 06-06-2023 10:15-0500 Body height 185.42 cm Adriana Mejia Other Schedule [facility] [employer] Other 06-06-2023 10:15-0500 Body mass index (BMI) [Ratio] 25.54 kg/m2 Adriana Mejia Other [employer] Other 06-06-2023 10:15-0500 Body weight 87.82 kg Adriana Mejia Other [employer] Other 06-06-2023 10:15-0500 Diastolic blood pressure 70 mm[Hg] Adriana Mejia Other [employer] Other 06-06-2023 10:15-0500 Systolic blood pressure 159 mm[Hg] Adriana Mejia Other [employer] Other 04-19-2023 09:30-0400 Body height 185.42 cm Adriana Mejia Other [employer] Other 04-19-2023 09:30-0400 Body mass index (BMI) [Ratio] 24.7 kg/m2 Adriana Mejia Other [employer] Other 04-19-2023 09:30-0400 Body weight 84.91 kg Adriana Mejia Other [employer] Other 04-19-2023 09:30-0400 Diastolic blood pressure 77 mm[Hg] Adriana Mejia Other [employer] Other 04-19-2023 09:30-0400 Systolic blood pressure 159 mm[Hg] Adriana Jackie Other [employer] Other 01-06-2022 07:59-0400 Body temperature 97.7 [degF] Kirill Alfred [facility] 01-06-2022 07:59-0400 Diastolic blood pressure 88 mm[Hg] Kirill Simon [facility] 01-06-2022 07:59-0400 Heart rate 60 /min Kirill Simon [facility] 01-06-2022 07:59-0400 Respiratory rate 15 /min Kirill Alfred [facility] 01-06-2022 07:59-0400 SaO2% (BldA) [Mass fraction] 98 % Kirill Simon [facility] 01-06-2022 07:59-0400 Systolic blood pressure 202 mm[Hg] Kirill Simon [facility] 08-01-2020 13:03-0500 Body Temperature 97.59 [degF] [facility] [place] 08-01-2020 12:35-0500 BP Diastolic 73 mm[Hg] [facility] [place] 08-01-2020 12:35-0500 BP Systolic 149 mm[Hg] [place], [place] 08-01-2020 12:35-0500 Pulse (Heart Rate) 76 /min Tomi [place] 08-01-2020 12:35-0500 Pulse Oximetry 99 % Tomi [place] 08-01-2020 12:35-0500 Respiratory Rate 18 /min [facility] [place] Encounters Encounter Date Encounter Type Care Provider Facility Start: 05-25-2024 End: 05-25-2024 Patient encounter procedure Barbara Bland PA Work Phone: [facility] Comment on above: 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); Acute pain of left knee; Osteoarthritis of patellofemoral joints of both knees Start: 05-25-2024 End: 05-25-2024 ambulatory BARBARA BLAND Not Available Start: 05-25-2024 End: 05-25-2024 ambulatory BARBARA BLAND Not Available Start: 01-30-2024 End: 01-30-2024 ambulatory [facility] Work Phone: Start: 01-30-2024 End: 01-30-2024 Patient encounter procedure [facility] Work Phone: Start: 12-02-2023 End: 12-02-2023 ambulatory Brett Mantilla MD Facility:[facility] Start: 11-11-2023 End: 11-11-2023 ambulatory Brett Mantilla MD Facility:[facility] Start: 10-28-2023 End: 10-28-2023 ambulatory Brett Mantilla MD Facility:[facility] Start: 10-14-2023 End: 10-14-2023 ambulatory Brett Mantilla MD Facility:[facility] Start: 09-19-2023 End: 09-19-2023 ambulatory [facility] Work Phone: Start: 09-19-2023 End: 09-19-2023 Patient encounter procedure [facility] Work Phone: Start: 06-06-2023 End: 06-06-2023 ambulatory Adriana Mejia Other [employer] Other Start: 06-06-2023 Office outpatient vi sit 15 minutes Adriana Mejia [facility] Start: 04-25-2023 End: 04-25-2023 ambulatory Adriana Mejia Other [employer] Other Start: 04-25-2023 Telephone encounter Adriana Mejia [facility] Start: 04-19-2023 End: 04-19-2023 ambulatory Adriana Mejia Other [employer] Other Start: 04-19-2023 Patient encounter procedure Adriana Mejia [facility] Start: 01-13-2022 End: 01-14-[address] ADRIANA MEJIA Facility:[facility] Start: 01-06-2022 End: 01-06-2022 Emergency department patient visit Kirill Simon [facility] Start: 01-06-2022 End: 01-06-[address] LENA MARIE Facility:[facility] Start: 01-03-2022 End: 01-03-2022 Patient encounter procedure ADRIANA MEJIA [facility] Start: 10-09-2021 End: 10-09-2021 Patient encounter procedure Beth Bradley [facility] Start: 08-01-2020 End: 08-01-2020 Emergency department patient visit TOMI ESTRELLA [facility] Start: 08-01-2020 End: 08-01-2020 Emergency department patient visit Tomi Estrella Work Phone: [facility] Comment on above: Closed head injury, initial encounter (Primary Dx) Procedures Date Procedure Procedure Detail Performing Clinician Start: 05-25-2024 Arthrocentesis aspir &/inj major jt/bursa w/o us Barbara TIWARI Work Phone: Start: 05-25-2024 Radiologic examinati on knee 1/2 views Barbara TIWARI Work Phone: Start: 08-01-2020 Ct thoracic spine w/ o contrast material George Alcala Work Phone: Start: 08-01-2020 Ct cervical spine w/ o contrast material George Alcala Work Phone: Start: 08-01-2020 Ct head/brain w/o co ntrast material George Alcala Work Phone: Start: 08-01-2020 Radex elbow complete minimum 3 views George Alcala Work Phone: broke leg Basem Bradley Plan of Treatment Date Care Activity Detail Author Start: 12-04-2029 DTaP/Tdap/Td vaccine (2 - Td) DTaP/Tdap/Td vaccine (2 - Td) [place] Start: 03-01-2024 Influenza vaccination Influenza Vaccine (#1) [facility] Start: 04-27-2020 Pneumococcal Vaccine: 65+ Years (2 of 2 - PPSV23 or PCV20) Pneumococcal Vaccine: 65+ Years (2 of 2 - PPSV23 or PCV20) [facility] Start: 03-01-2020 Influenza vaccination Flu vaccine (#1) [place] Start: 2018 Pneumococcal 65+ years Vaccine (1 of 1 - PPSV23) Pneumococcal 65+ years Vaccine (1 of 1 - PPSV23) [place] Start: 2003 Screening for malignant neoplasm of colon Colon cancer screen colonoscopy [place], [place] Start: 2003 Shingles Vaccine (1 of 2) Shingles Vaccine (1 of 2) [place] Start: 1993 Lipid panel Lipid screen [place], [place] Start: 1953 Abdominal aortic aneurysm screening AAA screen [place], [place] Start: 1953 Hepatitis C screening Hepatitis C screen [place], [place] Start: 1953 Screening for malignant neoplasm of colon [facility] XR Lumbar spine 2 or 3 Views [facility] Immunizations Immunization Date Immunization Notes Care Provider Fa mario 04-19-2023 influenza virus vaccine, unspecified formulation [facility] 04-19-2023 influenza, high dose seasonal, preservative-free Adriana Mejia Other Schedule [facility] [employer] Other 09-30-2020 COVID-19, mRNA, LNP- S, PF, 30 mcg/0.3 mL dose; Translations: [Pfizer-BioNTech COVID-19 Vaccine] [employer] Comment on above: Reason for Medicatio n: Prophylaxis 09-09-2020 COVID-19, mRNA, LNP- S, PF, 30 mcg/0.3 mL dose; Translations: [Pfizer-BioNTech COVID-19 Vaccine] [employer] [facility] Comment on above: Reason for Medicatio n: Prophylaxis 12-05-2019 tetanus toxoid, reduced diphtheria toxoid, and acellular pertussis vaccine, adsorbed; Translations: [Adacel (Tdap)] [employer] [facility] 04-27-2019 influenza virus vaccine, split virus (incl. purified surface antigen) Adriana Mejia Other [facility] [employer] Other 04-27-2019 influenza virus vaccine, unspecified formulation [facility] 04-27-2019 pneumococcal conjuga te vaccine, 13 valent Adriana Mejia Other [facility] 07-08-2017 diphtheria, tetanus toxoids and acellular pertussis vaccine, unspecified formulation Adriana Mejia Other [facility] Payers Date Payer Category Payer Private Health Insurance [employer] mber Subscriber Plan / Payer (Effective 2023-Present) Name: Mannie Jarquin Relation to Subscriber: Self Name: Mannie Jarquin Payer ID: Not on file Group ID: Not on file Type: Not on file Address: [facility] [id number] [place] [phone] 2023 Unknown 2018 Medicare 1961 Medicare [id number] 1959 Private Health Insurance [facility] [id number] 1953 Unknown [id number] .175 1953 Unknown [id number] [id number] .593 1953 Unknown [id number] [id number] .593 1953 Unknown [id number] [id number] .196 1955 Unknown [id number] [id number] .196 1953 Unknown [id number] [id number] .196 1953 Unknown [id number] 2.16.840.1.094927.3.579.2 .196 1955 Unknown [id number] [id number] .1259 1955 Unknown [id number] .1259 Social History Date Type Detail Facility Start: 08-01-2020 End: 05-25-2024 Tobacco smoking status NHIS Current every day smoker [place], [place] History of tobacco use Cigarette Smoker [place], [place] Start: 08-01-2020 End: 05-25-2024 Tobacco use and exposure Never used [place] Start: 08-01-2020 End: 05-25-2024 Alcohol intake Current drinker of alcohol (finding) [place] Start: 08-01-2020 Alcohol Comment daily 3-4 beer s per day [place], [place] Start: 1955 Sex Assigned At Not on file [place], [place] Tobacco [facility] Comment on above: smokes 1 ppd. Start: 05-25-2024 Sex Assigned At Male F [facility] Start: 1955 Sex Assigned At Male F [facility] Start: 05-25-2024 History of Social function [facility] Start: 05-25-2024 Alcohol Comment Daily [facility] Functional Status Date Assessment Result Facility 01-06-2022 Functional Status N/A [facility] Clinical Notes 10-04-2021 to 05-25-2024 Rowan Bojorquez MA - 05/25/2024 3:45 PM ESTTodd TE Castorena - 05/25/2024 3:45 PM ESTPatient Instructions Note Date & Type Note Facility 05-25-2024 History of Presen t illness Narrative Associated Order(s): L Inj/Asp: L knee Post-Procedure Diagnose(s): Localized osteoarthritis of left knee L Inj/Asp: L knee on 05/25/2024 4:13 PM Indications: pain Details: 25 G needle, anterolateral approach Medications: 12 mg betamethasone acetate-betamethasone sodium phosphate 6 (3-3) MG/ML Procedure, treatment alternatives, risks and benefits explained, specific risks discussed. Consent was given by the patient. Immediately prior to procedure a time out was called to verify the correct patient, procedure, equipment, client technical support associate and site/side marked as required. Patient was prepped and draped in the usual sterile fashion. GENERAL HISTORY AND PHYSICAL: NAME: Mannie Jarquin : 1955 HISTORY OF PRESENT ILLNESS: Mannie Jarquin is an 69 y.o. male is here for orthopedic evaluation here with his for increased pain in his left knee. He was seen in the ER after he had a buckling episode and fell onto his left knee. He has a lot of pain seems to be related to the patellofemoral joint. He has significant lateral subluxation of the right patella with [id number] changes and advancing arthritis with no subluxation of the left patellofemoral joint with fairly well-preserved mediolateral compartments seen on x-ray from [place] as well as weight-bearing films here in our office today. He is on meloxicam and recently started taking his old Robaxin prescription. He is cautioned on taking these 2 medicines together. He is not diabetic he is not on any blood thinning agents. PAST MEDICAL HISTORY: History reviewed. No pertinent past medical history. PAST SURGICAL HISTORY: Past Surgical History: Procedure Laterality Date ANKLE SURGERY Left SOCIAL HISTORY: Social History Occupational History Not on file Tobacco Use Smoking status: Every Day Types: Cigarettes Smokeless tobacco: Never Vaping Use Vaping status: Never Used Substance and Sexual Activity Alcohol use: Yes Comment: Daily Drug use: Never Sexual activity: Defer ALLERGIES: No Known Allergies MEDICATIONS: Current Outpatient Medications Medication Instructions escitalopram (LEXAPRO) 10 mg, Daily lamoTRIgine (LaMICtal) 25 MG tablet 1 tablet, Nightly loratadine (Claritin) 10 MG tablet Daily losartan (COZAAR) 50 mg, Daily meloxicam (MOBIC) 15 mg, Daily methocarbamol (ROBAXIN) 750 mg, 3 times daily PRN REVIEW OF SYSTEMS: Review of Systems General: Denies appetite or significant weight change. Denies fever, chills or night sweats. Denies lightheadedness. ENT: Denies dry mouth, sore throat or swollen glands. Denies difficulty swallowing. Denies ear pain. Respiratory: Denies chest pain, SOB, cough or wheezing. Denies asthma or pneumonia symptoms. Cardiovascular: Denies CP or palpitations. No syncope or dyspnea on exertion. Gastrointestinal: Denies nausea or vomiting. Denies heartburn or abdominal pain. Denies diarrhea. Genitourinary: Denies frequent or painful urination. Musculoskeletal: See HPI for comments. Integumentary: Denies rash, lesion or skin infection. Neurologic: Denies dizziness, headache or seizure history. Vitals: Body mass index is 26.41 kg/m . PHYSICAL EXAM: Physical Exam Patient has a healing abrasion to the front of the left knee with no significant effusion associated with his pre patella. He has tenderness with extension and apprehension of the patella going through range of motion. No associated pain with Gianna's mediolateral collateral ligaments are stable has very little if any tenderness to palpate the inferior patellar tendon as well as the quad tendon has moderate joint effusion noted with swelling in the suprapatellar pouch. No excessive warmth or fever of the knee. XR knee 1 or 2 views left Imaging Result: Bilateral standing PA and bilateral sunrise of the knees were imaged today in the office. 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 Lateral subluxation of the right patella is noted Orders Placed This Encounter Procedures XR knee 1 or 2 views left Order Specific Question: Reason for exam: Answer: pain XR knee 1 or 2 views left Imaging Result: Bilateral standing PA and bilateral sunrise of the knees were imaged today in the office. 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 Lateral subluxation of the right patella is noted ASSESSMENT: Acute pain of left knee Osteoarthritis of patellofemoral joints of both knees PLAN: Cold pack to the knee 20 minutes several times a day and before bed will be helpful. Continue only meloxicam do not take other anti-inflammatory while your on that medication. We will expect a cortisone to start helping reduce swelling in the next 48 hours up to a week. May repeat cortisone 3 times a year per joint as soon as 4 weeks from today. Ideally every 4 months if necessary. May also consider following up with physician and getting Visco injection whichMay last longer and can be repeated with approval through Medicare every 6 months. Singh 1821 during waking hours to help compress and support the knee. TE Vera documented in this encounter [facility] 05-25-2024 Instructions TE Vera - 05/25/2024 3:45 PM EST Cold pack to the knee 20 minutes several times a day and before bed will be helpful. Continue only meloxicam do not take other anti-inflammatory while your on that medication. We will expect a cortisone to start helping reduce swelling in the next 48 hours up to a week. May repeat cortisone 3 times a year per joint as soon as 4 weeks from today. Ideally every 4 months if necessary. May also consider following up with physician and getting Visco injection whichMay last longer and can be repeated with approval through Medicare every 6 months. L 1821 during waking hours to help compress and support the knee. documented in this encounter [facility] 06-06-2023 Evaluation note Encounter Date Diagnosis Assessment Notes May, Removal of michelle (ICD-10 - Z48.02) Pt tolerated staple removal well. Pt denies LOC or fall without reason. He slipped in slippers on an icy patio with dog outside. Steristrips applied.. Keep area clean. [facility] Other 10-20-2023 Evaluation note* Encounter Date Diagnosis [...] PSA (prostate specific antigen) (ICD-10 - Z12.5) 20 Oct, 2023 Fatigue, unspecified type (ICD-10 - R53.83) Notes more frequent naps - will assess thyroid w labs. Mar, Nicotine dependence, cigarettes, uncomplicated (ICD-10 - F17.210) advised to quit smoking. Agrees to LDCT at [facility] Other 07-09-2022 Evaluation + Plan noteExtracted from: Title:ED Note Author:Ramon Gauthier PA-C te:01/06/22 Otitis externa (H60.90: Unsp ecified otitis externa, unspecified ear) Orders: ciprofloxacin-dexamethasone otic, 4 drop(s), Ear-Right, BID for 7 day(s), 10 mL, Refill(s) [address] [facility]07-09-2022 Hospital Discharge instructions Patient Education 01/06/2022 [...] antibiotic even if your condition improves. Take knhx-zhb-[id number] and prescription medicines only as told by [...] 06/17/2006 Document Revised: 11/21/2018 Document Reviewed: 11/21/2018 [employer] Patient Education 2020 [employer]. 01/06/2022 08:25:56 Ear Drops, Adult Ear Drops, [...] 06/11/2002 Document Revised: 05/30/2018 Document Reviewed: 06/20/2017 [employer] Patient Education 2020 [employer]. Follow Up Care 01/06/2022 07:58:43 With:Elizabeth Veliz Address: [address] [place] [address]- Business (1) When:01/09/2022 08:19:10 With:ADRIANA MEJIA Address: [address] [place] [phone]- Business (1) When:01/09/2022 08:19:[address] [facility]04-06-2022 Hospital Discharge instructions Follow Up Care 10/04/2021 10:34:18 With:Kirk MOREAU, MANAV Vincent, LUZ MARIA Address: [address] [place] [address] [place] [address]- When:[address] [facility] [address] No data available for this section [facility] noteNo InformationNort [employer] Other Evaluation note* Diagnosis Onset Date Resolution Status Lumbar pain with radiation down both legs acute [facility] Work Phone: Evaluation noteNo assessment information available [facility] Work Phone: Evaluation note* Diagnosis Localized osteoarthritis of left knee- Primary Acute pain of left knee Osteoarthritis of patellofemoral joints of both knees [facility] - Reported* Type Description Date Medical History Depression, controlled Medical History Generalized osteoarthrosis Medical History Transient insomnia Medical History Obstructive sleep apnea Surgical History Hernia Repair Surgical History Left ankle surgery - with plate s and screws 2014 Hospitalization History SEE SURGICAL HX [facility] Other Hospital Discharge instructions No data available for this section [facility] No data available for this section [facility] Discharge Instructions * Instructions* George Alcala DO - 08/01/2020 Thank you for visiting [facility]. You need to call Adriana Mejia MD to make an appointment as directed for follow up. Should you have any questions regarding your care or further treatment, please call [facility] Emergency Department at [phone]. Take any medications as prescribed, if given [...] Everywhere. * Head Injury: Closed: General Info (Korean) documented in this encounter Assessments Diagnosis Closed [...] reports loc. not long and elbow pain Reason Comments Pain Ordered Prescriptions (unrec ognized section and content) [...] section and content) DATE CREATED AUTHOR 08/02/2020 [facility] DATE CREATED AUTHOR AUTHOR'S ORGANIZ ATION 01/17/2022 [facility] DATE CREATED AUTHOR AUTHOR'S ORGANIZ ATION 01/18/2022 [facility] DATE CREATED AUTHOR AUTHOR'S ORGANIZ ATION 12/10/2023 [facility] DATE CREATED AUTHOR AUTHOR'S ORGANIZ ATION 05/27/2024 [facility] EPIC Care Team (unrecognized sect ion and content) [...] BE BASED ON THE PRIMARY CLINICAL RECORDS. [employer] provides no warranty or guarantee of the accuracy or completeness of information in this document.
--- NOTE | 2024-07-02 08:21 | P.CN_ITS ---
Consult Note: HPI Data of Consult Patient: known to practice within the last 3 years Consult date: 10/14/23 Requesting Physician: Xiao Santamaria NP Primary Care Provider: Adriana Downs MD Consult Narrative Reason for consult: low back pain Narrative: 68yom who presents for evaluation. persistent low back pain, worsening over the last year. imaging reviewed, which shows facet arthropathy in lower lumbar spine. engages in provider directed home exercise program >6 weeks, without benefit. uses meloxicam, which helps minimally. Previously underwent bilateral L4-5 L5-S1 facet RFA with >50% improvement greater than 6 months. HUGO 30%. Pain today 07/01- aching in low back increasing to 8/10 with standing, walking, twi sting, pulling, lifting. cc:: CC: Xiao Santamaria NP Review of Systems ROS Status of ROS 10 or more systems reviewed and unremark able except as noted in history and below Musculoskeletal Reports: back pain PFSH PFSH Medical History Low back pain ?M54.50 - Low back pain, unspecified (ICD-10) CPAP (continuous positive airway pressure) dependence ?Z99.89 - Dependence on other enabling machines and devices (ICD-10) Sleep apnea ?G47.30 - Sleep apnea, unspecified (ICD-10) Smoker ?F17.200 - Nicotine dependence, unspecified, uncomplicated (ICD-10) Hypertension ?I10 - Essential (primary) hypertension (ICD-10) Surgical History S/P inguinal hernia repair ?Z98.890 - Other specified postprocedural states (ICD-10) ?Z87.19 - Personal history of other diseases of the digestive system (ICD-10) History of surgery on lower extremity ?Z98.890 - Other specified postprocedural states (ICD-10) Social History Smoking status: Never smoker Little interest or pleasure in doing things: not at all Feeling down, depressed, or hopeless: not at all Meds Home Medications and Allergies Home Medications ?Medication ?Instructions ?Recorded ?Confirmed ?Type escitalopram oxalate 10 mg tablet 10 mg PO DAILY 10/14/23 05/21/24 History lamotrigine 25 mg tablet 25 mg PO DAILY 10/14/23 05/21/24 History losartan 25 mg tablet 50 mg PO DAILY 10/14/23 05/21/24 History meloxicam 15 mg tablet 15 mg PO DAILY 10/14/23 05/21/24 History Allergies Allergy/AdvReac Type Severity Reaction Status Date / Time No Known Drug Allergies Allergy Verified 05/21/24 07:47 Exam Constitutional Documenting provider has reviewed patient's vital signs: yes Common normals: no apparent distress, oriented x3, healthy appearing, alert and well nourished General appearance: cooperative HENNJ Common normals: normocephalic, hearing grossly normal bilaterally and moist oral mucous membranes Head and scalp: normocephalic Eye Common normals: PERRL Pupil: PERRL Neck & C-Spine Common normals: full ROM General: normal visual inspection Chest Common normals: inspection of chest normal Respiratory Common normals: normal respiratory effort, no retractions and no use of accessory muscles Back & Pelvis Lumbar spine/lower back: normal to inspection, lumbar ROM normal, pain with ROM and straight leg raise negative bilaterally; no paraspinal muscle tenderness and no paraspinal muscle spasm Sacroiliac joints: SI joints normal Other: positive facet loading increased pain L4-S1 Extremity Common normals: normal to inspection and full ROM Neuro Common normals: oriented x3, CN's II-XII intact bilaterally, moves all extremities, no focal motor deficits, no sensory deficits noted, deep tendon reflexes 2+ bilaterally and gait normal Sensorium/orientation: alert Motor exam: strength 5/5 throughout and no movement abnormalities noted Psych Common normals: mental status grossly normal, thought process normal, cooperative, affect normal, speech normal and activity/motor behavior normal Speech: normal speech Thought process: normal thought process Results Additional Findings Additional findings: If on a controlled substance or opioids, I have checked an OARRS report on this patient and there are no aberrancies noted in the prescribing history.??If on a controlled substance or opioid a drug screen was completed and reviewed within the last year, and if there has not been a drug screen completed we ordered one today to monitor higher risk, state monitored pain medication use. As part of providing excellent, safe, comprehensive care, the following was completed at our patient's visit: 1. A medication reconciliation and review to ensure accurate knowledge of current/active medications, including asking our patients to inform us about any fyho-zuv-shsuefi medications or herbal remedies/nutritional suppl ements/alternative remedies. 2. A review to specifically ensure our patients have had annual screening for screening for depression, screening for tobacco use, and screening for unhealthy alcohol use. For concerning screenings had a discussion with the patient, provided patient education, and recommended follow-up with primary care provider when appropriate. If patient noted with a risk of falling, they received education on strength, gait, and balance training to prevent future risk of falling. Assessment and Plan Assessment and Plan (1) Lumbar spondylosis: (2) Lumbar degenerative disc disease: (3) Myofascial pain: Plan repeat bilateral L4-5 L5-S1 facet RFA under fluoroscopy, risks vs benefits reviewed. declining valium. previous bilateral L4-5 L5-S1 facet RFA provided >50% improvement greater than 6 months continue HEP as tolerated continue meloxicam 15mg daily f/u 1 month after RFA
== END 2024-07-02 08:04 | disposition home or self-care (01) ==
LOC: PM 08:04
PROVIDERS: PCP Family Medicine; Visit Provider Nurse Practitioner
DX: M47.816 Spondylosis without myelopathy or radiculopathy, lumbar region (principal); M51.369 Other intervertebral disc degeneration, lumbar region without mention of lumbar back pain or lower extremity pain; M79.18 Myalgia, other site
CPT/HCPCS: G0463

== ENCOUNTER 2024-07-13 09:07 | Day surgery (SDC) | payer MEDICARE, SELFPAY ==
[2024-07-13 09:28] VITALS: BP 182/74; PULSE 55; TEMP 36.6; O2SAT 97
--- OUTSIDE RECORDS SUMMARY | 2024-07-13 09:29 | XMS_ITS | CCD ---
Author Organization [facility] Care Team Providers Care Rooming House Keeper Name Role Phone Adriana Mejia Primary Care Provider [phone] TOMI ESTRELLA Attending Unavailable ADRIANA MEJIA Primary [...] physicia Propensity to adverse reactions 9 Comment:Done Aff[employer] Other (3 sources) Allergies Reconciled Propensity to adverse reactions Unknown [employer] Other Medications Current Medications Medication Drug Class(es) [...] tablet (3 sources) Opioid Agonist Start: 11-03-2018 Rewey 325 mg-5 mg oral tablet 1 tab(s), [...] Start; Refills: 0; Qty: 90 Tablet; Provider: Jackei Wright ( ) Start: 01-25-2022 take 1 tablet by musa th at bedtime lamoTRIgine 25MG lamoTRIgine 25MG, 1 (one) Tablet at bedtime # 90, 01/25/2022, Ref. x1. Active Oral at bedtime for 0 *Pick strength-form from [employer] for eRX* Dec, Active take 1 tablet [...] Oral daily for 30 *Pick strength-form from [employer] for eRX* October, Active losartan potassium 50 [...] to verify the correct patient, procedure, equipment, ground crewman mission support and site/side marked as required. Patient was prepped and draped in the usual sterile fashion. [facility] XR Knee - left 1 or 2 [...] subluxation of the right patella is noted [facility] Radiology Study observation (narrative) [facility] CT LUNG CANCER SCREENINGon 0 01-14-2022 CT [...] by: SIMRAN MATIAS Date: 2022-01-14 09:21 Normal [facility] Coding Summary.on 01-12-2022 Coding Summary. [id number] G h0bWw+PGhlYWQ+HQ2MRQQ iD79pdHXdyN6DU0sGUQ7C JNAEZZADAP8VZN8piVK7R RkjS7ZpuyZz DbkmuCXhTC69NNp3VOO2n RspOHynoV9cbMAoB5i0Bc GsAA63eI25UShcBIIiLzL 3LjZpbjsgbWFy L1foCkJrnJTnDmt+PHRhY mxlIHdpZHRoPScxMDAlJy FsdWbyIC6mDk0iIDUzKXN vbGxhcHNlOiBj c9adPZJxPIsxXI2thFszC 0XmbEY2SAQct4q9Nc74oZ I+GPRiYZL2gOakJKodn56 6PjAql8ymAJW6 rAViKSvuNOM7C22ha9D2B NFxKPAuHMM0xSN8aW5xxW bucpyxI4GtfJRdRbC7GUN 5xDIkkV2bxCpx rnhlyN7mBbi+L18UAA6VL KQSVK8CZlw1Y6LaZvqytA I+KB87PGAkEQ09hBCkaSQ vt6jbeCn8QlHc GGClAHM2kAoxTUpqv9TdG PDfO21euAMhp1Y7AGJmvB gqqECzUyAwmVS0qW4fQDr tqzqay3kgvcpv Qavwg9fgdy71zX67K32zG XlrGJFuKJT8DBIzXOUniC avmp8ccH6dDc4+EXtce3p mo1humSg3UhUv IYNrxqRjlHhlXDM5s4NiA v58U5NqvEzml1TzDvr8pp 73rNAwm7O2gFW4FJosKCD enC2sGDsrNgO2 DDSiGlGtsR71nIJgLSxzN s5wpMzupWmmBI1zSECrex saCLVtgK7bZIYwxKRaiYw qXK8tLSEtkiry i068OiVrUVP2SQQjlGGzM 8XahI2fZfGaTFGiHBScF4 QhpZXoPMimI509NYgtUjN 0KXErxbSzV7Nn GMEsqQpkEbJ4b7V0Yq7Qx 9GcmgurNYQ0PXhkLXW0Hb S7NqJbAwA7Q3AtPgo2MOF weJsyJZ2kA5Zh AHCvtnxppwkxfFM0NDBmS YYuyV45oQNiFLbgQy7ex0 P2h926YUKhYZSpaM29Ke3 udDogMTBwdCBU gK6tdsfff1ephezxLvUyI BOkNIt2YAm1MYXqvMteXr AeZIC2KqB3HRX8lXXtbS3 dnCccvjmurD4d Oyc+W09trL1oPCQ0GUQ0l xkpAPKinhAvEM01JH50P4 RyPjwvdGFibGU+PGRpdiB dvUukQC6qWnCg c3psn7GdBYatX9ApQKUbJ MfcCjp2ACAfBTO9mIM1iO 4vHFOnWBgqe5W3uEZ4T9K katTqah8md6gu UVKaOUnuF86pqUXdh0O0P EYitUQ3LPWxbQejJdOojR 93Oyc+OAQnzLxuj2DtHgs eq7jcd2yphZt9 XcEhDCQxxoRxbJnqKNP3x 0OyVg37T93sAHeiGNNdTW NoIXOtWJEtuZqbpm0szM5 wIi8+PGNvbCB3 aDL4sF4bWAIfDxZ8RHzwM 137KmMwcNOqUwrjx2uwy9 zboXq8VxYuJDOjtoXysHc eBCI3k0BxHf88 T17tVYzlUQKqKMWmPUKdK HUccUmmyk9beF2gZt2+PC 8or1pigm36nE16wBL+PHR rIUI8kUmjEDpa YLAmyJ3tJXooQkW7RCEdR rNnzP05rWYyAWduSt7rxS lxcSjcAE4pCAYdtsiom49 3OuUra5xxCFUr gPHlCCegWMH9F38gf7C3N HJbELDyGBQ7iAB4eG1ciR lnbjogbGVmdDsgdmVydGl uUWcxPTbcD303 IHRvcDsnPlBhdGllbnQgT fHgSIn8I8UeDlt7KWCuqS avXI9ejMScSPtkYo9gyPj mtEoaJV3tMEJa iktii667MfTvy2adKWJxz ABjBUkxUQY3S05ni1B4MK IqOMHuLSP5oIW3yK2arCf nbjogbGVmdDsg vgWojTacEOltIDlrM579G HRvcDsnPkJpcnRoIERhdG P8DV63HU62lMItx0P1rDA 3Z5MjGKQakvmy kimyuRH8UEWsKDDgzS68J o5yaKioTp0sJKGxTAJ6MR NmeNTuQ7ElhJ4qCgGqOQD mZOFxT8BifMFg MYmhT347KOrsShA2JARxh gNjS6TlMHKeoIwtFnU9f7 A3Jm6MH6K8JJ47JL75mGZ pl7Y5sHO2I6Ly XZGqyengysqtbWL7ILYtX DHgmF96Xm6uuMivTv4fJT CmLMO9JKAntAVnZ2AjbB6 yOiAjMDAwMDAw K2IlvGQcPSybE200MSvxW nS5HPAbikFkM6SvAINknJ ryWqI6g4C4Qy3CXHz3DV0 6MN14iVKtt2J4 oUA5I9WiYHIkjncirvrks VZ2GCMcEVNatH42Qp5wwA jcQz3lYGYrQGB5JKXqhVF aD2IgdD1vPsNc WASqLUOrH4BnkEJgFRifA 345ZEtqPoL9DTEaghOzY9 WsQOPwoHutSzV8q6O2Fw5 KIUTsRQ30RIJ5 yMV2HD82YU83Y3FaPqvrq GFibGU+PHRhYmxlIHdpZH RoPScxMDAlJyBzdHlsZT0 sEw9iCXVlMHKp nHgsnVIiFkNdh5pdYDFnY VfzYB0bsOzhC1KcdBL5GA Ofx8o2Ix30A45cU4UttHJ +TVBhiJF1nQP7 rJ5iLzWqEqB5MMwsW670O nOypYXsGhqhy3wuf9rqpW h4CjF7WYKobhJfgFfzAOH 0v5LoPh21N69x IHdpZHRoPSIxNSUiIHZhb Tegdm3ekL5oIo5+PGNvbC D3fGZ7tR2bJnArMuC1BJu yP579RsBlaPGs Ginme5lge5zpsCb8UxUqD SPykoOnkXwnARM5v5EiDt 09Z8WmcQfdk5HmAdz0rt5 9bVHjy2K0mNG0 U1NjHWGvkfrjrZQtuNurD H4yFXJesjcfFWPieE5jCE ZrV5g9TvMwTeU9USniV2F nftA6GBRffAGx LYweUJG8F48ki6I2OCIpP HZpBGY9uME5jD8ymObxaz ogbGVmdDsgdmVydGljYWw lHIeqG648RFQd zAdwLWMbeK6vVIUsqNBpe VriHW9wQMQccyxvVjRZQy VASsXRGAXLH6gKVaGSDA9 8IS84jJYai9P2 lWK0R6LuGNSsonapedqcq ND1OLRiPIUusR09gAPpWI dwTd6gm3K7v950QAXyLJT vfW05Uw6kkWnr DXHghYBVjN6pzyigp3mil pejHsLmUDYgGQv4TPu7IZ DjwQfwDfZlBHW2XmE2QYZ 2jBYrqO0ezXxt fulatT9fYbb+MDkvMDMvM Cp3ZrnyuUQ+AHLrDTR3jF nbZHarXMGmoM0fTQCwH9n 0WnFpSsA9RErx O9OuSNXrvjvtYa85tA3dV pArThC6SPbvC9PhbsO8VS CmrVPiUBkyPPS5K83mo1N 2HTQtYDAtBUB4 bYB0cS4anXgioqhpoOAej DsgdmVydGljYWwtYWxpZ2 57CJMroXriCsK5RHffSFQ mPN26RY59vPAz p7W3gRW7Y9EiMMMdmpngg lefzHL1LWCvXWCcuM02eP IiMPvyXx5ky0V5m399BTN iZPDmlL49Qu7v hQzeHYPccQFVjT4vnpbkn 0owlbnfGsLuTTWdSNx1HV b3LABzoJwkLpOlWXJ1FvC 6VAP9eOBplL4l cWnzctnesT9eUhd+TWFsZ TwvdGQ+LXGwHVR7aUilHR xdCQFdeJ3sPLEfL3w8WnF aMmF0BGtwB8Nb HPIccoktCb65gG9wKoUmH sE9TOqwB8PizuI5XECihK JuMHsyFLD4K10pl2C0CDY aKWPpGKC5wNM7 uU7ddYtgiliveKXxdYqdh aGayCgmEDmdTJagX791MQ FwmLxaHq33lHGphHktrpE 2W0ShTpkdcGH+ ZQ93XCGhNV27oGRpeTMgx 9alvEr2BxFiJZPgFGW2xT nzKNycv5JsYUMsO28ziVM xk4Q5SBFqnZzo sVRiPoAejIY9rQ8kHYisx buhy2sruhppMoyuq6vrbw 50rN02K14cLZssVSIlRZK zMCUiIHZhbGln rj4hrG1mUz0+SWPlvAK5e HU4cO0uLiOoRdU6TJapS2 92TaEozDXzAkzrr1pvg2d bpRe7OiKuTYGb osIvaEegZGM2f9EsPc92O 29sIHdpZHRoPSIyMCUiIH EqaMimpc3ndT0kZj8+PC9 el1lvsu76lY86 dHI+VQEbCBE4dWmpLNtqO NTxlY3hKCywDkB4PCFnKg YmdK54uTRkMPetYi8uwOs zpOiaUD4tZWSd jnwsf791RdUte6tnZFEfj DNnGUvxWBD9R57kx8X7LR UsJZNgXOC1iYX8iO3awUk nbjogbGVmdDsg pgTdnChmTEekYQirC990T RCmmUnpUeGtcNYpH7nfoo TYBG4zIrhikRC+PHRkIHN 0eWxlPSdwYWRk wZ0rHMLbY7g8IpJkItH0Q ZgiY8CuktN2ZKBfvZZjWE AleSIUwB1orcpfi0jtljy gIzAwMDAwMDt0 UTm6DGDwpKpqAgWvUQJ2B tC5ORW1kINpbZ5muFyjzn qooX0hHax+RklOOjwvdGQ +POUfWGL5qSag VYfrWMFwlB6fTSYdP4p5Z aSoZeN1KBceL0PqxxK4GN OdlTChQJOjvBYHjS9yfpt ks6tviflyDkUc SOHbFHy7VHh0DSTozQzcX nSeVMI3JnR7GYP7xVJpkN 3veChlzizqzK7yDet+TVJ OOjwvdGQ+PHRk WDE1zNupVSkrXKDelP0pJ SDbL8v1IaAjToM5OYksC8 UdxzA7FLYkqOBtNQPamKP CtV7xlqpnz5km vqldQfGtONKaQIr2HJb8B ZVfdNepZdFuTZH3HrM1ZI H2vRJxqZ2ivBymlybuwU2 wOyc+XUT8GNK0 QF26MV94J0WxEvoucRKje +PHRhYmxlIHdpZHRoPS pxYECfIuKuzAifXE3mZu0 yZGVyLWNvbGxh cHNl (more content not included)... Normal [facility] Coding Summary. CD:[id number] G h0bWw+PGhlYWQ+LO1UXIP uV11qmBFunW2OU0vGZD1G ZWGKYKLICH5WBX9foIS6W TedX7WxsrMt BjthdDFxVA31QBe2WZT8e VwaYPaelO2ifYAeI4s7Oz IpQN36tK99CEwrYEJqQdK 3LjZpbjsgbWFy Z0iiSfQqzLXnKde+PHRhY mxlIHdpZHRoPScxMDAlJy HiaRscJA5uAq6dIHMyMYM vbGxhcHNlOiBj g4coBJWyBPjmGP7kyTdiL 8UwyEW2CRTnf9r6Kn95hV I+EXUsEKT5dZylMViwn56 4PeOtd4hmBYB8 jUTkNXusENL7R06ag4X8R ZMnDRYxRUR6mXV6tC8rfD cideqwW1WjdTXtIiW3MVY 9oOLjkK0umZmj lkfrxF2jXls+L32PZU0WS FLMXI9PBto1W0RfOmjhoN I+GW43XUEaJW64pOCerAD ie3rjzHi2TgLs FIDjKPR4sHrcGCfsg8CuD GPvZ38igYQzf9I2HQChfR tpnDIeGwYxgJN5cZ0bPFs pfopti0dfaxjl Kxkji7aoqt48eX47D97gP UwwWPQdFPH4ODSpQRBgrP fiuw3gvN9pEt5+NPwss6d lr6cbiHi8XlXd FAOxmcCziPgeQFU7k7AqC n51N9JotKftf0NuCxq9wr 67lNUtq8Y2sFY1GYojNTO gqH6cAMmfKzB8 XTBtIzLfkP17gQQbUAoaB r0nyNapvSjeWD6aBLLigp vaLYQveA1hIYCrpVCezOh dDW6tBOAkdcrr a576WfTtUSK3FTXxcRFiW 3SoqR9iPhNsACJkKDQvS1 VzlEWjDHkzW629KGgvAuJ 1LSJwvtKjJ8Dq ZBWevNjhKlK1g5C7Xy2Xj 1OzipkcHLD0RYkpRIY6Eh J8ApUbMeB8A3GgDng2PBT lnJudDR9iQ3At YHWghreklkgoqFQ8WVJoA YEryW84iFIyBUnwYb9bz6 L0f975MIMjDNHetO91Gj1 udDogMTBwdCBU aB6sjwjpx7nytyixWcBzK IZlZWy1PKg6KVWsdLzgJs WlNYT8HvT3IUQ3gYXuiT9 bxBbrrqnkvJ8j Oyc+R03cmI2yFSL9EZY1x murYOSvpnYlSP34OE77G5 RyPjwvdGFibGU+PGRpdiB mkDokXD3bJiJv y2sye5JyVVtiN3IsVFFxP XphByp4SHIrGWF4vKR0tB 6vMGJyFZjfk4K9wTB8T5G mwqSpri4bn6jj HBAnGTnhE79jfEZqq7V6V VWomLS8FBAduCvpKiBtzS 93Oyc+RFMgkIbqj5CcUee kd9mkp0vgtWm3 QlCbDDGekxWrkHblIGV8x 2RlOo38W26cYJudMENdYP WmALSrKWEmoBvyro8vbA8 wIi8+PGNvbCB3 rBJ6vL9xOAFwYjK4BUzkH 594OvTkfIAyUazcm0gxz8 ymuTf6AyOsHDSmexDvsDh gLVV1d7GpDr02 S86wHEbzYTQzSLGfNLCpL XAtoCemrn7ooW4xQy7+PC 2rv7bqkh25qU13uHF+PHR xBMV2yJjxSMat LSWgtQ7gHUhaDuT7HVJmH fOxhH73eVJtUFzfOr5reU ugjEruON3vVKYjxugoy97 7KlIsz9hrNHYz wCNwIWpxVZO3C98sh3Y2M LXzTGUuDFK8sUA4qT1ofR lnbjogbGVmdDsgdmVydGl uYTuuCQvyM868 IHRvcDsnPlBhdGllbnQgT kJkLWj2I6VeLve5VYMwvK bwHU9fgGBsRBzlYz9wqFq ceFdlHB3fNYRb drzxj318JmXyn0tmSYKdh RCkRHufHQZ6K98eq1Z8MJ HoORObNQH9xIY2oY7hrTv nbjogbGVmdDsg mfYspHouYNfqJXqeF343A HRvcDsnPkJpcnRoIERhdG E0GY29UO13dKHzd4V2uNV 3G9YdQBDqiazi ynakrZF9SXGiQJCtrK26W u2qbKvjFq9vXYFfEGL5DV FxdPYvF8BevW8qByRfKSD uHXEdM5UdkHMp FHpsT014ZRrqYlJ4SVOwq dZuB1RaLEZqvXwjHsU9c8 J2Qv6GW3F7VI19UQ26jJM ek4L4sVK2C8Jn MRMhhelyvrxkwNC4DLXdW SGanW51Ef9pbPoeZi4uWG IcZCW1UZWplBPfC3FxtW8 yOiAjMDAwMDAw H4WrbGFpAHnmE998DHxzI oA3QOWpfbJeW0MzVMPedH nkYjW7g6M6Ly2AJCx0PA5 5XX06lNDbh2M1 kPH6X0FqFKQhaicupjcrx YC1QEBqWUIhlB76Lm1twC oiAu2pQYStFXW3YMBftEB oX3DpxL8yWiYn UMGvZCXbK5SnfBRuIFpfU 804JNwqFwW1UJXaafQyJ2 RpDRUbcLwdQlI9p7Y8Tt4 PUQWmJF87WCD9 jYC0RH70MW65S2OoAnkbd GFibGU+PHRhYmxlIHdpZH RoPScxMDAlJyBzdHlsZT0 cTf1wZIHkDEUo fTgwdJCpOxLrl4bzWUPyV LdwHF5lnNsrU0SlmAI2YY Djj6l9Dr95R98uN7EfzOV +XZZnkDR1bCX3 kM9wRqEwHsL5FLkbW896G hHbmYKeXnldz9zlb6dtaI y2OlY8WDZgsnRzhAinYZE 2a5JmTk96H24x IHdpZHRoPSIxNSUiIHZhb Akesl1xwY6nHn1+PGNvbC G5dMG3uU0hVgYyEbS0JTj nA692JuBylKMw Qbmfb7xvj6cnwZx2CpUfA CTiqxWubOkbIHF4t7OvGs 87Q8CsrQbzr4CaHyo6iz0 3wQVch2Y3rXE4 A5VuMAOkpkjpvWDdqDhtP J4aWSOtfqsfOGMijC1dUG OaB0b6SjMlHcS3COztQ9T omsX9SGRhmQWa PHktJZQ4Q82wa6J0CWQuR TAzIQV7pFX2nD4xlPxcks ogbGVmdDsgdmVydGljYWw hUApaW278IRNg yYgoDYYjaI8mGMMpvHRsa PpdPX6dPMIqjpqzXjACAl FHBwIPPOFSP5qTFzJVLW8 3AO31oDPzu5E7 mID2S2ZmKQQzrictjnggr JG9JIMkQDChcO85sVGpBY duPj0ve2A4z219BKKyCMY lxZ23Gd4glOyk ALKbaJSOeG4jvwzxg1ncw faqHzFtCTLtFId8PAp2NI AypWhsUrDmHPD3UwH9LCA 8nTIbfW9suVuk orxyuC6lDnp+MDkvMDMvM Bd7OgoldZS+BSVxTBX8pI zeXQemAAQteG3xQGVvT4l 6HyEqNwO1VSip O2ZfUANmxjbhTw16qN2vG iRaCwP1GNtdI9RsnmL9GE TfsLUiDVvyCIP7Q75hh5D 2ZMWaPGFqXMR0 qOQ3oH0muTcgfivjfMWzw DsgdmVydGljYWwtYWxpZ2 06BHIayAwjUqZ4ZEtcFWJ xOM52TS58hBVl d7I9kES6X5LxMVQtbqrbr caviOA0YHErTNQulR57xI LsOQbpBl6zw0Y7y286DCK kGKYmiC22Kx1v iAoaYNRflUGQwZ7onbjyn 6udmmssLeKwRDXuDRp7QM t4JXEpyOrrCbDzPLC4PrE 4TOZ5pAIyiA8u iJdwzlqkuG0aSwo+TWFsZ TwvdGQ+CJIpUHT0hZotQW ilURYygA6uVGIxQ8q1RzH mGwR0CJinW6Ck SMJwxurrDu93qX4vHcPoJ pH8ROnbW2CpomL1MPEhuS QsCIabYQE2W53gx3G7ZXI nSBKvAYA0yBD1 xG5cvImrqcjfaWLzrLlxz hKtiNjsMIhbPAwmE011HO FcwDbeRkEtPSYcYM1zxCa vdGQ+XT11nx94 R2MnIsqlGve3AGIdQXG6a UZ2aO2mDLXzKIenq4M6vQ W7H3HxifGfrg5pc3pwDQC zEUygA09sbFXy e4U4UISbfSQ7VSFafFndA fDctL26Iua+PGNvbGdyb3 KcChbok0ooy5isjLy1ZbV wJSIgdmFsaWdu YWU8m2SoOl07E86pXByvK HRoPSIzMCUiIHZhbGlnbj 4pyL9mUl4+PWMwpDA0dEG 4jV3nBxHgDnD1 IHrdM482GeJlwJNtOggoa 0ocl8blmYe0OgYaMCPmki JvbRssNAD7j4AdKl49R9P ymVywk2DxIvc8 cl59zLYwy1V9lBF6N3HiP XHkbkhqzNNmsZscJS1cGL SjldfbWGZegY9dSAQiF4h 2ToBqZdF5OBrc G2HwfbM3YQFeqBFpMFVoe PMLoJ9bykgzn3rdqpraMr VwKXCuBXi6INs0FGHffTs nHpAiVTH0QdV4 GKR3uIJjyE6ztSsyljovm G9wOyc+SZc8w9ffxIPnGB 6ddYZ4CX41HR46hQSbx1I 2wLJ2O6KpWUPv vgvcykxmiYW3CINpCEGbk X20Tr8dfBtvMk1qSKPmAE W4KEHzfCLpT6NqvY9fDfT uFEPfRGAcX6Bf wWHeLLgjC755AYhgYeP3E NFrafHoI2LqWVIyuNvyIv U2q9E3Da8XXL86PZ12LD5 1hMFwi0F8aBF5 M9YbOTVzskxfbqwyxOP1L ZUsRIKfaU87Ad1upEfoQf 8bPNNuHNM7KQUwfJTkZ0X dcC7dWdAfKWRg YNGwH8LskIJcBBohZ562B NdsVeE7AYSvffVbM2VfGN KifQczYfN6i2R4Sq0QEr3 4MT88ID41qLEl v5D8sVC5M3LcJENkldbfz sbupAP2PCFiLKIgnD18Jo 7gfZbtMf2xQLEhTAX1DER kaGQiG1XnsD5w QhAyUXLnODPmI6ExcGIhE TjuD819ZEjiOhC5ACMtrh ThQ3YnKQBceSflSjJ5q2Z 1Ka6LDPxtfsf9 N3PtUuzogXA+RR51YRHlK O58xNVrkPUii8bfjRn5Ht WmPVCfFNF6uFxhHWbby3U bXKWgX60mdLYc c2U6 (more content not included)... Normal [facility] Consent for Treatmenton Consent for Treatment [id number] Normal [facility] Discharge Instructionson Discharge Instructions [id number]:127 Normal [facility] ED Clinical Summaryon 2021 ED Clinical Summary [place] [id number] ED Clinical Summary Person Information Name: MANNIE JARQUIN [facility] Age: 66 Years : 1955 Sex: Male Language: Cymraes PCP: ADRIANA MEJIA MD Marital Status: Phone: [phone] Visit Id: Visit Reason: Ear foreign body; [...] 01/06/2022 08:25:56 01/06/2022 08:25:56 01/06/2022 08:25:56 ADDRESS: [address] [place] [id number] PHYS DOC NOTES: MEDICAL INFORMATION: Prescriptions Given: New Medications Printed Prescriptions ciprofloxacin-dexamet hasone otic (ciprofloxacin-dexame thasone 0.3%-0.1% Otic Susp) 4 Drops Right ear 2 times a day for 7 Days. Refills: 0. Medications to Continue with No Changes Other Medications acetaminophen-hydroco done (Rewey 325 mg-5 mg oral tablet) 1 Tablets By Mouth every 4 hours as needed for pain. Refills: 0. PATIENT EDUCATION INFORMATION: Instructions: Otitis Externa; Ear Drops, Adult Follow up: With: Address: When: Elizabeth Dasilvajorgenoris [address] [place] [address] 3, [address] [place] [phone] Business (1) In 3 days 01/09/2022 With: Address: When: ADRIANA MEJIA [facility] [place] [phone] Business (1) In 3 days 01/09/2022 DIAGNOSIS: Otitis externa Normal [facility] ED Note-Physicianon 01-07-20 ED Note-Physician Basic Information Time Seen: Kirill Simon DOCatina 01/06/2022 08:06 Chief Complaint pt had a beetle fly into his ear, states he was seen at [facility] and they flushed his ear with lidocaine but they did not remove it. pt here today because it hurts. beetle is in r ear. History of Present Illness 66-year-old male comes to the ED for evaluation of right ear pain and concern for foreign body. He states that beetle crawled to his ear last night. He was seen at [facility] where he states the squirted lidocaine [...] Veliz In 3 days 01/09/2022 EDT [address] [facility] [address], [address] [place] [address]- Business (1) Additional Instructions: ADRIANA MEJIA In 3 days 01/09/2022 EDT [address] [place] [address]- Business (1) Additional Instructions: Patient Education Otitis Externa Ear Drops, Adult Attestation Patient seen and evaluated by the physician editorial assistant. Attending physician was present in the emergency department and supervised care. This visit was performed by both the physician and an APC. I performed all aspects of the MDM as documented. This report was transcribed using voice recognition software. Every effort was made to ensure accuracy, however, inadvertently computerized clinical asst mistakes may be present. Appropriate healthcare PPE [...] 0.3%-0.1% Otic Susp, 4 drop(s), Ear-Right, BID Rewey 325 mg-5 mg oral tablet, 1 tab(s), Oral, q4hr, PRN Allergies No Known Medication Allergies Social History Alcohol Substance Abuse Tobacco Lab Results No qualifying data available. Diagnostic Results No qualifying data available. Normal [facility] Comment on above: Result Comment: Elec [...] Reviewed: 06/20/2017 Elsevier Patient Education ? 2020 [employer] Infectious Disease Otitis Externa Otitis externa [...] even if your condition improves. ? Take ytbv-pzz-mwrsprc and prescription medicines only as told by your health care provider. ? Avoid getting water in your ears as told by your health care provider. This may include avoid (more content not included)... Normal [facility] ED Patient Summaryon 022 ED Patient Summary [place] [id number] Patient Discharge Instructions Person Information Name: MANNIE JARQUIN Age: 66 Years Arrival Date: 01/06/2022 07:57:27 Discharge Diagnosis: Otitis externa Primary Care Physician: ADRIANA MEJIA MD Provider Information Primary Provider: Kirill Simon DO [employer] Technician:Ramon Gauthier PA-C The exam and treatment you received in the Emergency Department were for an urgent problem and are not intended as complete care. It is important that you follow up with a doctor, nurse practitioner, or physician?s editorial assistant for ongoing care. If your symptoms [...] Follow-up Instructions: With: Address: When: Elizabeth Veliz [address] [place] [address] [address], [address] [place], [place] [id number] Business (1) In 3 days 01/09/2022 With: Address: When: ADRIANA MEJIA [address] [place] [id number] Business (1) In 3 days 01/09/2022 In the event that this physician does not participate in your insurance network, please consult with your insurance company to find a nearby participating provider. Patient Education Materials: Otitis Externa; Ear Drops, Adult A MESSAGE TO ALL PATIENTS REGARDING OPIOIDS PRESCRIPTION OPIOIDS: WHAT YOU NEED TO KNOW Prescription opioids can be used to help relieve iihkljyc-yi-ogtijp pain and are often prescribed following a [...] may (more content not included)... Normal [facility] Auto Diffon 01-03-2022 Basophils/100 WBC (Bld) 0.5 % Normal 0.0-2.0 [facility] Comment on above: Order Comment: Order Added by Discern Expert. Performed By: #### 1 [id number], 4352106, 8122589, 9081168, [id number] ####[facility] [address] [place] [address] Basophils/Leukocytes Auto (Bld) [Pure # fraction] 0.0 E9/L Normal 0.0-0.2 [facility] Comment on above: Order Comment: Order Added by Discern Expert. Performed By: #### 1 4990013, 5561714, 8227905, 6649892, 36744956 ####[address] [address] Eosinophils/100 WBC (Bld) 3.1 % Normal 0.0-8.0 [facility] Comment on above: Order Comment: Order Added by Discern Expert. Performed By: #### 1 6837329, 1203267, 3900654, 0918554, [id number] ####[place] [place] [address] Eosinophils/Leukocytes Auto (Bld) [Pure # fraction] 0.2 E9/L Normal 0.0-0.5 [facility] Comment on above: Order Comment: Order Added by Edgardo Expert. Performed By: #### 1 5338912, 5434839, 4420961, 0279177, 53123856 ####[address] [address] Lymphocytes/100 WBC (Bld) 19.8 % Normal 14.0-50.0 [facility] Comment on above: Order Comment: Order Added by Discern Expert. Performed By: #### 1 6494163, 1599954, 3630922, 0617947, 08164206 ####[address] [address] Lymphocytes/Leukocytes Auto (Bld) [Pure # fraction] 1.2 E9/L Normal 1.0-4.0 [facility] Comment on above: Order Comment: Order Added by Discern Expert. Performed By: #### 1 3480894, 6474668, 5876472, 7105536, 54973409 ####[address] [address] Monocytes/100 WBC (Bld) 13.6 % Normal 4.0-14.0 [facility] Comment on above: Order Comment: Order Added by Discern Expert. Performed By: #### 1 3733134, 1965550, 0343856, 9913082, 96769730 ####[address] [address] Monocytes/Leukocytes Auto (Bld) [Pure # fraction] 0.8 E9/L Normal 0.2-1.0 [facility] Comment on above: Order Comment: Order Added by Discern Expert. Performed By: #### 1 3615775, 1840972, 1486859, 5133248, 60316299 ####[facility] [address] [place] [address] Neutrophils/100 WBC (Bld) 63.0 % Normal 36.0-75.0 [facility] Comment on above: Order Comment: Order Added by Discern Expert. Performed By: #### 1 4211534, 9355465, 3194249, 2063271, 22268582 ####[facility] [address] [place] [address] Neutrophils/Leukocytes Auto (Bld) [Pure # fraction] 3.8 E9/L Normal 2.0-7.5 [facility] Comment on above: Order Comment: Order Added by Edgardo Expert. Performed By: #### 1 2898394, 1700696, 7265088, 8959169, 47623846 ####[facility] [address] [place] [address] BMPon 01-03-2022 Anion gap [Moles/Vol] 11 mmol/L Normal 6-16 [facility] Comment on above: Performed By: #### 1 3571802, 7869773, 4036285, 3467811, 58685501 ####[facility] [address] [place] [address] Calcium [Mass/Vol] 8.9 mg/dL Normal 8.9-11.1 [facility] Comment on above: Performed By: #### 1 4574703, 6298019, 4939804, 0547710, 31772542 ####[facility] [address] [place] [address] Chloride [Moles/Vol] 104 mmol/L Normal 101-[address] [facility] Comment on above: Performed By: #### 1 6768945, 1858006, 2713996, 9640099, 05441826 ####[facility] [address] [place] [address] CO2 [Moles/Vol] 28 mmol/L Normal 21-31 [facility] Comment on above: Performed By: #### 1 7750451, 9288239, 8880831, 5527342, 64765517 ####[facility] [address] [place] [address] Creatinine [Mass/Vol] 1.3 mg/dL Normal 0.5-1.3 [facility] Comment on above: Performed By: #### 1 6759180, 0834357, 2245437, 3077759, 18759123 ####[facility] [address] [place] [address] Glucose [Mass/Vol] 102 mg/dL Normal 55-199 [facility] Comment on above: Result Comment: If t his glucose result represents a fasting glucose, interpretation should refer to the following reference range: 55-99 mg/dL Performed By: #### 1 9925632, 1484988, 1493821, 0900371, 82838704 ####[facility] [address] [place] [address] Potassium [Moles/Vol] 4.6 mmol/L Normal 3.5-5.3 [facility] Comment on above: Performed By: #### 1 9031782, 5462713, 3664600, 6885557, 91403334 ####[facility] [address] [place] [address] Sodium [Moles/Vol] 138 mmol/L Normal 135-145 [facility] Comment on above: Performed By: #### 1 4626733, 6836000, 9808320, 6632201, 68181999 ####[facility] [address] [place] [address] Urea nitrogen [Mass/Vol] 22 mg/dL High 5-21 [facility] Comment on above: Performed By: #### 1 2458528, 6867152, 1248964, 8462074, 20218530 ####[facility] [address] [place] [address] Urea nitrogen/Creatinine [Mass ratio] 17 No Units Normal 10-20 [facility] Comment on above: Performed By: #### 1 7588768, 7644056, 2713474, 4796737, 85923853 ####[place] [address] [place] [address] CBC w/ Auto Diffon Erythrocyte distribution width (RBC) [Ratio] 13.7 % Normal 10.9-14.2 [facility] Comment on above: Performed By: #### 1 6758573, 7487973, 9740224, 9363501, 39587139 ####[place] [place] [address] Hematocrit (Bld) [Volume fraction] 42.1 % Normal 37.7-49.0 [facility] Comment on above: Performed By: #### 1 8362369, 4030825, 9312728, 9287920, 70039812 ####[place] [address] [place] [address] Hemoglobin (Bld) [Mass/Vol] 14.3 g/dL Normal 13.5-17.5 [facility] Comment on above: Performed By: #### 1 3467751, 4709017, 5921265, 5176846, 50705442 ####[place] [address] [place] [address] MCH (RBC) [Entitic mass] 30.4 pg Normal 27.0-34.0 [facility] Comment on above: Performed By: #### 1 8264724, 7209623, 6089708, 6181180, 88205903 ####[place] [place] [address] MCHC (RBC) [Mass/Vol] 33.9 g/dL Normal 31.4-36.0 [facility] Comment on above: Performed By: #### 1 8524779, 6760511, 9967431, 1041954, 67863158 ####[address] [address] MCV (RBC) [Entitic vol] 89.7 fL Normal 80.0-100.0 [facility] Comment on above: Performed By: #### 1 8803143, 6703951, 9484469, 8805263, 64232187 ####[facility] [address] [place] [address] Platelet mean volume (Bld) [Entitic vol] 10.5 fL Normal 6.4-10.8 [facility] Comment on above: Performed By: #### 1 1495888, 2285775, 1727487, 5183614, 99115258 ####[facility] [address] [place] [address] Platelets (Bld) [#/Vol] 240.0 E9/L Normal 150.0-500.0 [facility] Comment on above: Performed By: #### 1 7259989, 5726460, 7125000, 8904962, 99488973 ####[address] [place] [address] RBC (Bld) [#/Vol] 4.7 E12/L Normal 4.3-5.9 [facility] Comment on above: Performed By: #### 1 8870721, 1033607, 2297511, 8742207, 14339695 ####[place] [address] [place] [address] WBC corrected for nucl RBC Auto (Bld) [#/Vol] 6.0 E9/L Normal 4.0-11.0 [facility] Comment on above: Performed By: #### 1 [id number], [id number], [id number], [id number] ####[address] [place] [address] CHEMISTRYOrdered By: SYSTEM SYSTEM on 01-03-2022 Anion [...] for Treatmenton Consent for Treatment [id number] 207 [id number]#1 .00CD:127 Normal [facility] HEMATOLOGYOrdered By: SYSTEM SYSTEM on 01-03-2022 [...] Ag [Mass/Vol] 2.0 ng/mL Normal 0.1-3.5 [facility] Comment on above: Result Comment: The concentration of PSA determined by different manufacturers can vary due to differences in assay methods and reagent specificity. Values obtained from different assay methods cannot be used interchangeably. The methodology used for this result was chemiluminescence using [email or web address]'s Access Hybritech PSA reagent. Performed By: #### 1 [id number], [id number], [id number], [id number] ####[facility] [address] [place] [address] Physician Orderon 01-03-2022 Physician Order [id number]# 1.00CD:127 Normal [facility] eGFRon 01-03-2022 GFR/1.73 sq M.predicted among blacks MDRD (S/P/Bld) [Vol rate/Area] mL/min/{1.73_m2} Normal >=59 [facility] Comment on above: Order Comment: Order added by Discern Expert. Result Comment: eGFR is race adjusted. AA=. Performed By: #### 1 [id number] [id number], [id number] ####[facility] [address] [place] [address] GFR/1.73 sq M.predicted among non-blacks MDRD (S/P/Bld) [Vol rate/Area] 55 mL/min/1.73 m2 Low >=59 [facility] Comment on above: Order Comment: Order added by Discern Expert. Result Comment: Rn Complex Care asia kidney disease could be indicated at eGFR's of less than 60 mL/min/1.73m2. Kidney failure is indicated at less than 15 mL/min/1.73m2. Performed By: #### 1 [id number], [id number] ####[facility] [address] [place] [address] Coding Summary.on 10-17-2021 Coding Summary. CD:[id number] G h0bWw+PGhlYWQ+CR2WQMS sE70nyRAsaD0FF9uRBN0A MLTBZXLDMK8PEP6tpYF1L SqmP4OubrPo DoltqOEsKY22AKz4AHL6s XsaRIwuiT7dmBJnB3h8Ou ZgVG94jU39WLocCIQfIyK 3LjZpbjsgbWFy Q9pjPkPfgHHvZaz+PHRhY mxlIHdpZHRoPScxMDAlJy UcgFndMY1oXf8wLFPrJLN vbGxhcHNlOiBj o1wpLGPdNUlmEQ7itFuuA 2OujAC1GOXbe7r4Fm84uT I+DARyPWG7hDvgXYbyc05 7BbQku7jwSIC4 oFGoZWaqIGW7O19zr4M7E EIqZOKiQCB9oKY6jA1npG dienapB6ForUKkFwW4BVL 4vLOluD2doAwt sdbkpE1iIsn+Z10FZA1XX BGMXL8DLtb5X6OjShvmyX I+RX59QAAiAG82xLAniQR fu8afjYc5FmSh CSDmWYD2jIvoZSfas5ErW FLfC69yvXQin9B4OWExqR eoiALsLqRjiDE1yA7qJEd shrfua3tnnpxu Truqi5nmjx83rI73L73lE MjrAUSgCZD8DZYgUCFrtB bvmc9jwX8jOe1+UIedf4a ey3fpcHg2BcIy VGOaalIrsHnvGTG9b5HaN i43N0YalQfze8AyDgp5nw 26bRSuj7K0eMC6KDwnYRP pbJ8bZDxrXwS2 AWIqOrAigQ60jRYlJNxyW b6vzTelcMsvQI5rOIYeew fjZWPgyC3rSBQkpSVqlSn cPY2iBFNhvpvn k793CkGfEIR8ELHjuXJsG 9BtzD5fOgMhJTQmEKXgC9 KxzFNkMInlF258KOunOzK 4XLNhwrJdD8Ej VGFyuOacLgW9a4Y8Uh4Qq 8GnqwbdJJP0WKroZIM2Xp O3HvNiNzN8R4OxDej4ALG kqCfzJZ3oG8Xs XSOdneafsfmokTG8JERuG EWauA44yUPrKQicWc6tb2 X5w719NKGsJJQtyA71Rn0 udDogMTBwdCBU nY9onixjv8boqpndDnLoA EZnLYx0HSe1JKMchRefCc OtIXA7QpM9ZCR7wMTxkF8 zoUyyklxawI1s Oyc+L98cjO2lTEL3HTM7n klxGNKxypSfOC86DO13O5 RyPjwvdGFibGU+PGRpdiB aiKvzZB1lRyBk q2lsw1OgHMchD9OjKWMgL IavNqq9ZHJnDKR6wFS9sV 0dWPWfUSagj2S1vHW3M3F lhkUtyi3hr5sm GHIbLWsqV39ffKOyf0D7M OWddFM3YHOusMejFzQmrS 93Oyc+HNJruAuim1VoLwe wv8skp2jsnHn0 DlTyTCPnohEffZyuCBM4g 1FeZh93B09dTUnuTILzPV WcQPUlCMQfvSvlnl5mvG0 wIi8+PGNvbCB3 wBW0pD5lGJTxQnX7WUvkJ 200BmSlhZRlBvqdy0euo6 cykMs0WdMwWWOpivGaeCs gDYD1j2XpHd12 Q98rLDmnKIQkGLKaEFRsJ PLmdMypsr6amC8uTc6+PC 1hu7vjop13oM57pZV+PHR iVAY9pRtuQCpc DJVqoU1rTQyoGzV8RGBrU yMupV37nNKdRHsvWf0rfO rdzJhhRO7mZOHmqndwn64 3MrXpi6pcLBBc cUXrDIsoWJO3Q57rp8Z9C FVmBFBkUIP7wWW9dM7wyD lnbjogbGVmdDsgdmVydGl yRMmnGRcpS669 IHRvcDsnPlBhdGllbnQgT sXiGFj2X6FeOcp5DWFswM unMR1nlNYpDUihYb7leRj wtUppHK8mSKEu lcnac144YqLwd1bxGBObb LKkKPzcHAU0P42jy4G0MT KrTFCaTGH8tFI1hM2wvHv nbjogbGVmdDsg ihAxqJczRBqeZDrgY114M HRvcDsnPkJpcnRoIERhdG M0PR54PY99vSBng7R1mHE 6B6YnMNOakfof ustxvRY6AFTsIAPklO13G x8phCqeAd1rHGFeAHC6UR VkpXZrT5RemL8kGgMlCBY gJEUuQ1QrhMGm ZDrhT150FChaZpY5ALPqo nGiK2KlIVDzxRnoHqV1t6 Q7Nj8SY9Q5JX29VM04aYE ef4I0gPR3R0Aw SRVkiewobhuwqJK8ENZtW MTbuF64Se4jaHemMr7sFX HpMHC1ZCFflHFeA1WnvT7 yOiAjMDAwMDAw W7MjsVXxWJigY301QZbdR lG2LENurgEuD8EdNJPzjR hzViH2u5T6Ba9XJJx8PS3 0SE16mHGer3W6 kJD1Y0RyQMHynrcfkqahq JP9PWVnYTPjtI10Xu9agF nrNn7vEKHpBOG6JEUeuWI wV6VchI7oLrRl DLItJBCzP0IpeEAsUBxdI 117KQygChN3MOJervXdZ9 NaLXAovTooYrE9r8B8Tt5 GLFKeTU66IJN8 xSI7ZI27XV03H7WaVycuw GFibGU+PHRhYmxlIHdpZH RoPScxMDAlJyBzdHlsZT0 rZt7sXYSsAITv wYokrBFlBzZck8caVWWyM GmzBQ6kkVwaA1EajBW5VW Zmc5s4Te61U94uS9RbhET +OAIfbGR6iQH3 pQ5sQsEvKpM5ZLwmL188C kJmqKGkAfhzu5wvy8umlA s0ZfS3DGBvnrAwvRbvRLJ 3q0CaQm21S89x IHdpZHRoPSIxNSUiIHZhb Tckoi8mpA8wAf7+PGNvbC J8wYB1oH2rJhFbGhP5RFc qA243FaPltHDs Jylsm8gfo8cseTu6CiWdN VYewrAesJrlWCU1z8GkHl 85T2YbjOsov2DkVmk1st1 6aDUsw0H9zIA1 Z3YfTIBqucvtrVQvvQrzQ V3nXDUdgrnjRYQzbB8sJC NfX3s5AtTcUeF1CCpbI6N zzbC3UPIajVQt LAbmARQ9H27xo2M4EPYfF NXcSLC9hTP1zJ1sjRcifm ogbGVmdDsgdmVydGljYWw vDJsgC489AXFk tFjjNMLpgK8hQKIevXXqp XsgFD6uCTNukbitTvOIVl OOEkPIZYSJQ1rTBcVZYD8 4LT36xVOum6L8 pTF1Z9StVZWrkuvrxgeir QP9DOGeVRZgvL34mAEnNC deQa1rc8Z6o342KPJpAHI xxO58Va6rqCnj OTAowPOKkR8qdtiij6rie sfjNkOhNWLiLHs5FXl7IG RwdJofKmNdOKE3BnL3JTL 0nGArcQ9naXqj tqtvxV4kCcs+MDkvMDMvM Bb8EswquHU+ZCOvCTK1eH xlPKmmZVKgeT4qUEDfH4o 9EfWwPjI5RIaq X4PvQSKmyccwMy13yM3iY gYzFxL6HNgsC3LoltB9EJ ShtREbBXceYIR2R62ow2J 5UVMtKTLqDWN9 fES6rU4yvLcesjkdzBUlo DsgdmVydGljYWwtYWxpZ2 40QGFdtMmnWtA0VVyyNTK gNN72AM00lUVl z0B1xOU0P4VeCBZdkuykf xgokAN3YTOnFGOicO70cO UhXPuvEg9pd7M3t911SYZ hNECqrQ58Hl3v uHurUAKflZTYwQ0tipjmr 6elghqzVrXhRWMhTEd0PR u7DGKudWqvWzGgDVR3QeI 6HYH3cKZvsH9f bWzexnybdW0xIzi+TWFsZ TwvdGQ+POQgSTR3uEnwDX tlIBOtyJ0bEXIsA0l0VqJ aSnD7INkrO1Od VFEcdixdBf52qH7hEwToD xN4FZhhH6MgxcF9LYXniN WvFSufTRV7T62az2A8VXT oHDPfUKF6aWK1 xT2ujTmmpewxjHSwuLuym gQyxDdyVVubQUvrE089WB OozDhpZe20cHKyqSeqgwN 4M4PbHsyisAY+ VH35OYFcIJ34nTVvgJJbp 1vbpKw2ZwDxLZVnGUA6xW obUDzzj0KoQVHxM41mtSG me2Q8EKJmsMut gQOuGiKhoAQ0xB7pKIrhv rqtf5ilcliaTfgdx3kcfh 69vT00Q72tWRksHNMkCCG zMCUiIHZhbGln as2oqR5oBr6+XJHljXN7m EC0qL2oOhKgXpX5LMxdP2 00PsKkhKBwSnsps6fei8x paAg8TmEbQRPg tuZiwQhnHMZ3f7PwBf48A 29sIHdpZHRoPSIyMCUiIH SogPcpsc3biE8jDg9+PC9 xn7ywvd07sG33 dHI+UHJkICX9vIsfLKmmF XLuzS4vSZtmIoR5FZKcAr MvgN58xPEeJZhgCj4esPp khJnfAI4aZZZt jtjym881VhNpw2ztGMYwi OBjAPfbSWT0Q37qe3H1WG UqYMWrKSF1cYJ0lP5tpYe nbjogbGVmdDsg aeKkqEqvWIbfVHifZ948D TOytVaaJlJgwIPgO4aawr LDXK6vWyfcaAO+PHRkIHN 0eWxlPSdwYWRk fM5vGRNpQ2k7MmDhSbN8Y SguW5HxrqO7CBAdlLUlIO XilQZMfW2yikuer0ouxwo gIzAwMDAwMDt0 WPq0XAHnhJtwYfIiQTT9S xV9KEF8nYXswD5kcCcmhh dliB3hVqr+RklOOjwvdGQ +PKVgOJF0dQrc YUbzWFJhaM7cJMZhX3l5C wYzClI7ADqbN9XiefU8KL HsjDMwDMAhoZBHdY6fzec nq0swbjbkJrXl XAGlHVc5TYr9IQJhtQnlM zMzXDX2DqO1YRS0gXVipR 1dmGcmmfpjsO9bXnu+TVJ OOjwvdGQ+PHRk KTI2zEnnHFkyYAHbtS0dD ENnT6l8XyXuDiQ3ZWcvV5 BlaxR1VLWrlINhEMCgsCT AvQ0umneub4it vtuiQlXiSRDkHOj6KZx2X MMcaOghIyYwBKZ1YyV0SM O5yBBqyB5ejKqnartfmP3 wOyc+IZE7GLG6 TS67BC91S8TvArogcTIyl +PHRhYmxlIHdpZHRoPS drAJKdPqPojTavJO7sZk7 yZGVyLWNvbGxh Nl (more content not included)... Normal [facility] Consent for Treatmenton 09-29 Consent for Treatment [id number] 204 [id number]#1 .00CD:127 Normal [facility] Patient History Officeon Patient History Office [id number] 2040 [id number]# 1.00CD:127 Normal [facility] Sleep Office/Clinic Noteon 0 10-09-2021 Sleep [...] PUL, LUZ MARIA Within 1 year [address] [facility] [place] [address]- Additional Instructions: Problem List/Past Medical History Ongoing Smoker Historical No qualifying data Procedure/Surgical History broke leg. Medications Rewey 325 mg-5 mg oral tablet, 1 tab(s), Oral, q4hr, PRN Allergies No Known Medication Allergies Social History Alcohol Substance Abuse Tobacco Immunizations Vaccine Date Status Comments SARS-CoV-2 (COVID-19) mRNA BNT-162b2 vax 09/30/2020 Given Prophylaxis SARS-CoV-2 (COVID-19) mRNA BNT-162b2 vax 09/09/2020 Given Prophylaxis diphtheria/pertussis, acel/tetanus adult 12/05/2019 Given Normal [facility] Comment on above: Result Comment: Elec tronically Signed By: Kirk MOREAU, Beth Ramirez\.br\Date and Time Signed: 10/09/21 11:41 EDT Sleep Studieson 04-27-2021 Sleep Studies [id number]# 1.00CD:127 Normal [facility] Coding Summary.on 04-25-2021 Coding Summary. CD:[id number] G h0bWw+PGhlYWQ+QP3VMLA oC51mlNVclA1BH8cTRL5B HPCFMWVZUR6VLJ3ciTY3S NtqH7RkggEm NxgluAOqEJ10IEi0OIN2i UpsSIwiaM0gqBHwH1i8Ko ImOX14yE67WDbnWPFlFvZ 3LjZpbjsgbWFy T1aiGyNyqFIySsb+PHRhY mxlIHdpZHRoPScxMDAlJy FwnRkxQT7lFq0zCLEeCKB vbGxhcHNlOiBj m1lfYYCfAZraXA6edWjlH 6NqjEB7HWDwl8a2Ca46xD I+VJXfRXS3yBotQZmhy32 7VvJli2beVMS9 gXIqWTjbTUU2U87dl0A7K FPvOBVoFUF2yDD2lL4apB hhxtwrM8KjuVVtPzM1KMO 5kIAagL2ndMwd dacdpH8cVoj+N53HPD2LC QCEQS7ZQqp5T2EwBjmylE I+MO64UZWoPI94kUZgjMM ew0rhkQv9RwGz IMSlMFJ3jBzzZWmnx1CrX OIzJ08esPIdw6U9RMNvxU jsnRSsKbBnfHY2uF5xOSw owwcyr4djtfrn Daket4erbs37gV40R55lL QggICDaUMT3OIHhBYLvlO atfu6zeE5uZn0+PDccz3b sx9erzDn5XnVy AWEtfdEkpSswROT4e1MqV h52G4PucXeld2RrPop4kg 11zQNwn9N6qAX3YKbxEYE mjS7xVVtzJsC6 ERTtDrCidH21fMOkBBqlH d6fpPcvcPjmQA9fJPUhjx xaZRWvoU1fWWRoxJVunTc cDG5sJFXyibxy i006HsIeNKM0AXFspTImW 1BklF4aLkYwWSUyXMSoO0 OomYFsJWizV757VDjmYrH 9UWKvgoTkZ5Bi TYEqoNklCaL5y0Q8Ct0Qs 2RswrmfYHO4JVsmNCJyKg B2TlLuMaB8Y3PwJne9VBH xuZuqIG8cS8Uj BIWfflabyuiawTX0CLVwC SKchZ74iGRrYUmuLq1cf6 Q7m154HVFtKKVdtS13Sq2 udDogMTBwdCBU qV1klseuc7inqotiYjBiI BFzKWq9OQp3RSDqaOyyTj HuLCQ0KdR7JZP9zFDcvI4 vpNutipstmF7i Oyc+Z28crQ1cCVJ4EEL0o dcpMJCdtkBhCT97WM93M0 RyPjwvdGFibGU+PGRpdiB imWrpGH9iLrVe n2toz7BrEHbpW9KmNVKeV PpmDxp7ZGSiNCF9nYE6rX 4oBBOpFLfkz6U5dYG8C6T igbZsqs6cn6at DAKyCYiqM69iiVInr4A3V CRwfFD0HFQusNtmLfLjgH 93Oyc+MLMhkGqop6LwUpr be8cgh3xxuMo8 IsSiCEBsiqCzoCuwUCU0g 8TvBu88Y96uKIgqDVEmUW OmOHToZNBlfKdtov5rtH7 wIi8+PGNvbCB3 zKZ4jC5rCSRhScM9TFfyU 059DoTcuZGvXcrfl7ffm4 lweNl0DrBsKQMlcwMnjFp dWSN3g2NtZi29 Z03tYNzeOBDsAXLoJEEaT ZPctElhll1atY5uMl4+PC 4sd2aghc23hZ95hMZ+PHR mEBI7kTilQTds GSTzyL2oJSqgFaN9MAWgD kFxcE76jYVtYFtvCb3dqS trsZaqND3oGLMekaqlh48 3IzYbx3zzZSRh uINsDJdtBDS9F87hz3E5A EKcWPKzWWA2zKC2pG3ujD lnbjogbGVmdDsgdmVydGl gRJfbCBtaI823 IHRvcDsnPlBhdGllbnQgT jBoYQj1X5BjXtr3RURmhJ qrZC6wySEyZOfwIi5izUh eoTeqKR5pPJSc qbbpv207EgDsy5inOTMrm HFvVIgbDHV8H35ce8V6WV TbRQDxROW1eIK3kH9neCy nbjogbGVmdDsg nvMdeJjlBYycGVqkR852S HRvcDsnPkJpcnRoIERhdG O1YJ78KJ10vXQhs8I6yQF 5E5JpBNSshhhq xdbbzRH8EYTaICXwbZ76C p2yiVgtJi2dWRQkYPH0ZF QftEKkB5JncM2eXpOuSTP dWBOhW0GypLKm UAigX444HDjnXaN9CKQlp aZdT4HcEPErhUuxEyS8l1 S7Gx7FW8I4CG09RZ74uDX rx6H3rMX7P0Id PZSndnpvgimieXD2IJTrQ XIdgF47Ft4bjIlhMf9qJV CcPET1DWVyjAXuM9UowE7 yOiAjMDAwMDAw A8WzjFAlFVmuG209UFepS yJ7NOEypdCgI4DnWDEltB wtBwV2m1K6Wq7ILMb0XT6 1SQ08aVDhq9V5 pDA1E7OgMXMqakmjllrxh CU5ZTEsHENpsE00Mk6pbF bjNx7qWZVbKCU6QDKsnAN lY7UaqH3pIsAv QRDnFVOvZ8BukRVtJSthC 359XVqcLdV2OVQykdQaA2 OvNUDfhGdtVzE0s0G0Jv9 FLHNuPI77NLH8 pZD9JC20LQ31K3GqXvvri GFibGU+PHRhYmxlIHdpZH RoPScxMDAlJyBzdHlsZT0 vAy9zNIEeBKRy bQykrNSbKnSbo8xbTIOeY PocUS0rhCmwN2VowZY4KF Nny1s5Rn97D68pT3EqaRB +RSGjiDN7iVZ3 vO4hMfAgGvP2BOqpU165I nTznGOwAlpmi7bot3sdaD v5EtK8NEBhhuGyzDprTUN 0u5RvXn94S82p IHdpZHRoPSIxNSUiIHZhb Xrmlp1udW8zPl8+PGNvbC A2hHO2uQ7vTtWbGmW0UNy sX488LuTmrIEi Fmnel9nzq1ahqUm2JoHnZ OXagfYxkPdzNOJ2s4GbSb 39X4BepNbcn4YpZqu5kw1 1vGHgi2Z3oXV5 T1WaIANbbsyxwEKshNqtU H4gJSLncptvWPJjaG9eLJ GkF0t1RiMqNjE8GXdtH1D osxW2JEIjzYUy IEmrCDF6P79gn2E2SGFoU WTwVLB9cRO2nO4wqOowoj ogbGVmdDsgdmVydGljYWw qCYaaG763MHTe yPugEPSxoL0vFGDhzUXgg QzjVY0xPZHgeuuhJyRIMi XRQyQENMBIF9lGYhEEIY7 1YV43kGCns4Z2 oWT5I1BkERRplhpsrrpno AT8WLTmSSTwnV33mXTuYE fvOb5pd0X8v366LOIbQJS zxD54Se6qwNof QFNmcCNPoA0clmair1vpv vmfJwBhFLBtEPz4YVo2SX PxoMxhQcZeJVO4WeY0ICU 6mFDbvE7sxMhk aexruE9oYhr+MDkvMDMvM Za8UtfzfXA+MBNqCYE4fO oiPDbyKYPvnZ2pSEClL6u 7LdWbQxD9RFnq X9KmGGUsxxwvFr52tV4qO aKzVdI6RAnaY0GheqU6OH XkfPWtVLqeSXP2O33xt8F 4KKHbUENvNDS4 kLX3cX2lnIiaigzuxXIlt DsgdmVydGljYWwtYWxpZ2 51PVCnnGxcEpA0QZdhWJX mPE19IH69sQCc c9N2zLN0R9RcRICypluro kfcfSM1CDDgLYVqjH31dY PmYFnpCm3ci8X9r058IUM cYUKqhY03Ni1f oQofPRUreAZJzH0gvzqig 7tkpevsOwNlJEAmCVd2VJ x3BDJhlNypYvZvJUP2ZqO 1ANQ4wXFokO9d vWmbyglxwP9oZfg+TWFsZ TwvdGQ+EBYjVCG2yFcxGK erYAOtcS9mRSRhW6r6MhH jPrV4RGrdR8Yx DWLcxmjfJd33eA8aLzUcK qR8OLoyV1GkhbE6QDAcuI UpAYanMZO7N14se0U7AQQ kBTAxIZC0bTR7 qR6vyHznvlbuvTXfcFrsh uFleTdwWZshTLlvT755IN NytEldJk72oJHanZuufsF 9W7BcEdvrvSF+ VD85DQRkDA97qTNawGYus 1cynDi7BsAnXFLrXAQ7qU hxNUcvu3DtVEJsX25xpKP tg8M0KHTezNrz fCBuKuDulRT0nR7mCVxht vyat5wolimgWeczt5iczq 03nE77F99kENbdNNLuLDQ zMCUiIHZhbGln qu8bvH8cOb4+RNAknPS9r VQ8zQ9bBjTvNtT9KNgjN8 14GgRjyZSiGnlhu9mgx1o xsUv8JbGpKOOh ndQdaXbwQQZ0m0QmVe31R 29sIHdpZHRoPSIyMCUiIH QzwUzkfa8pxV5jBp9+PC9 at2nclx30yV18 dHI+IYTmGKP2oVplRRauI GHxrV9dXKgxYiG9WAQsKr JfmK55xBUjSDaxJt2nhIy ppMllNW4gARQr otpse428KmWmz5szRNVzy SPnUPupKBZ2R56cz5A3ST BcXRDrSCD8wLG5xZ0jmKo nbjogbGVmdDsg igTgoGlfLOynDNljS560S KUspCbgPaJmjHGkA4zhis IWMH8rRstliSN+PHRkIHN 0eWxlPSdwYWRk gW7oUASpI7k0PrIxNwE7Q EhqM8EcbkF6AGYcvFRfLH DvtKUSiL7xaimay0vxouw gIzAwMDAwMDt0 JVz2TLBknKngRqToYJG2D nE2REX4zKVbjV6qrIveau oibF5fUhj+RklOOjwvdGQ +POXkGNE2bOzx TAxzCFNguZ3wHBOtV3w9A sHdNfH2FNaoT6RyilV8KI TseLWzQNZceEZYmC6ydvi zs5maipoiFnDj TJHcNNm7YVa9MQDrrYioO wLbTXX4RwL0SGA8tZNjuO 6yhAupoikrsN9hQff+TVJ OOjwvdGQ+PHRk BNZ3aLqkDAowWUNoiR5yC AWbU6a3IbLvFeA4CFtnS2 RftwP9QAVlpXNgPWMesYC NlM3nrcsmk4wx jzexGlUxKCTwUOo9FLu6P FNkiHzrWwTtOAI9JkX1AI F5zXMqtD6wdMzfhobvjA8 wOyc+JDE1KRW2 VY65WS85Y5DpNwkfjKHnn +PHRhYmxlIHdpZHRoPS qrKLQiCqVzrFotVV8bPj2 yZGVyLWNvbGxh cHNl (more content not included)... Normal [facility] Prescriptions/Work Noteson 1 Prescriptions/Work Notes [id number]# 1.00CD:127 Normal [facility] Consenton 04-21-2021 Consent [id number] 0 [id number]# 1.00CD:127 Normal [facility] Patient Eval Forms Officeon 04-21-2021 Patient Eval Forms Office [id number]# 1.00CD:127 Normal [facility] Patient Eval Forms Office [id number]# 1.00CD:127 [facility] PT - Consentson 04-20-2021 PT - Consents [id number]# 1.00CD:127 [facility] Patient Eval Forms Officeon 04-20-2021 Patient Eval Forms Office [id number]# 1.00CD:127 [facility] PT - Consentson 03-31-2021 PT - Consents [id number] 0 [id number]# 1.00CD:127 Normal [facility] Patient Eval Forms Officeon 03-31-2021 Patient Eval Forms Office [id number]# 1.00CD:127 [facility] Physician Orderon 03-16-2021 Physician Order [id number] 0 [id number]# 1.00CD:127 [facility] Sleep Studieson 2021 Sleep Studies [id number]#1 .00CD:127 Normal [facility] Coding Summary.on 02-23-2021 Coding Summary. CD:[id number]:4525059Q G h0bWw+PGhlYWQ+CI5IFSP uO71jdUNzpJ4VI2uZQE2V XCXQAYJOJQ8OLN2dhUE6O WjpK1NseyVu MbjtoAIwRE44OKu5BFA3o ZkzDMoxuN7ldINhI8f1Lp QnCO65mX68AJbqCUTaBhM 3LjZpbjsgbWFy M8fvAnKrgDUwCfb+PHRhY mxlIHdpZHRoPScxMDAlJy MzaAtlSB9zNe4hGYFrNEW vbGxhcHNlOiBj s3eaEFJyKFdyHA2bhYrtX 9BjgUO3JRIep1j8Ib81gT I+ETIyUWV3iVttYIhxi28 5RzFep8suGJR0 jBXlCHnbXZF2J18wl0S9R KPjAUVsAPK6gHM3eJ9cbZ qkpzbrR3JbhOVqAbA8JCK 8iZLlbL1rgXad wopiyM4zPts+E40WSL1ET XUEWW6RYtj0T5RrJxziqM I+BE32LBBhSG13hLEubSM rs6wrcGq1JqXg RHPeSXL9vMgdPGysg9PiX NMoK49frCMno3F4NLPnaH bdaAFvPaPdkLD1iF1lSXa basbek7nnqoyy Lzhex0lwwx49nQ60A66zX IwgQGXeIHZ4ZKCjKUXrdK twzn1veY9uNj0+WMahp5o wu6cwsZo0IaHw KHTdrqIzyDimLKC8r4YsH d92S3EbvLtzp8WtFag3ga 93mZCdv7X1zWX2LRojIHQ uvI7xRJfxUcS0 GFQyFsPfjI73fODpQGfwU i7erFyhqWldOV1pKMTebr rxZLWfpH4lENZraWCszUk bGT4vIEGiqzjo p226ShIqUOE5BZPsiNGqP 4BekS4oSmTxDCTfHXLwC2 AxlWIlWLmvC688ATllVuP 2JYQhquNoJ4Fb NWLdfMnkBhB8y2E5Ss4Cb 1DdpjprXCH0RQtaJOW3Vz W0DsXiDwX0N8WiCxg4YEV wdXttFY2dS1Gc SSZsghifjiwblCT2VGMiP RJkbZ63gLZiOZbyJb4ov1 E7v652WSMfBNQkjZ05Xb0 udDogMTBwdCBU tW7pvsehk8ogzebeZdJgP ZQdACd3NAo2KALikKrvPw NyKAZ7KaT6XER4rTCuaC2 leHlafkhsmH6h Oyc+G17fdB7fOSN5KNZ3m rldEYBdooCeDD90RG01X2 RyPjwvdGFibGU+PGRpdiB iaYmtTW6rXhDr y0cfc5CgSDipK3TkGCDfS JjfGhd3JQVaYJB9vHJ2gU 7kFEDqQTrjq4V0kXA6D0U eooYeev1rw6hx WWKbYJmoA06edKGff1F3P DKtcLQ7TSIzxBzuVzHufF 93Oyc+KNCyaDyrq3EhKok ha3ezm8rjlFf6 HfQnBPInccNbaDqpBOC5h 2IrCe39O95rMYddAKWqJZ SpTNBjLEMqhFsoeq1ccS3 wIi8+PGNvbCB3 mLG0oX7uQFEvRaO7WPbiF 958TaLiqPWvRdfju2bri4 zqoSy7VdKbCSZpfbPyvFh tEVP9y7BsBa71 P16aAYpnEWAyQROuUPEwG ZEcaOordv6yeR2lPx5+PC 4jh9wpah61tM40iDV+PHR yFUX9lKqqQZok TNUbiP2cAYrbFrQ9CLKcP mWtnZ53mKTzWKuuSw7cyQ fnzDzpMC0dTYFruhenk01 1CeJuh2gvHUGr sDLaFLxsKAI8A89me8L0Z ZHyEJZwPDD9wGD2hX7cnZ lnbjogbGVmdDsgdmVydGl nNCoiVOlnG452 IHRvcDsnPlBhdGllbnQgT mXxWIp4S3FcHvm7RTLjbF nuAW7iiZAiMSsvKd4rrDt vaNaaPT1dTHRn mypat507NkHyy1jzTJQyh IWbRAgnEMR0R49yu0W1PM IeVSNxMFT4lZN0mY6xxEd nbjogbGVmdDsg ubFgbNmmGFtkDIkvV978I HRvcDsnPkJpcnRoIERhdG O7RQ97IF09aPRhc2V9lFO 4L9SdSEQajupo vlvtbVZ0CTNhLCHnfS31S s5iiFpqAh7iQSDeNMH7MC HexWBwE6PflK5nJlZbGCX bODIxG8XlgSQm XJeoJ656DSmbHwQ4GWWxa lZdQ8ZdCDMpbTmfJnC7d6 O2Pm7NF7G8WT81PC79gDJ ik2O5vPD3P7Fu SUMwhrnqbbrruUI1ABCdL UJrdR36Uv3zjOxrBf0jNZ YbAVF6UVXmwMSiN7JgnK8 yOiAjMDAwMDAw N6SflAGkNLdpK039BGjiB yI9NGShvrSlM4PlRNNkqT hnFhA6u2Y5Og7ZZQn3EL6 7GJ82zZXra0O6 kOK9Z6TxRRGpnnttmunlz PT5YYXzIVYuzA06Ks6hjO lqWo4zLNSiCHI1VOAwzTC nK2XigN3eXuQo JBFnAYLxA7PocSZdZKovT 494JCoxViL1QNBuuvSwA6 QqWIPxbJlbFkE7a8E2Pn1 MLOIhLM14SYD6 yEV1JB45IZ29M2BtEzqya GFibGU+PHRhYmxlIHdpZH RoPScxMDAlJyBzdHlsZT0 iZq6kZVElEBSf dGcgtATcIhPub5bwTPXsB PrmGT2zyVdwO8JelTE6AF Tyn0l4Yg36W48kE6YduJH +SXItvOJ3mSN2 qO7dSpSkTaU8EJscA349Q tPduBNjJcbcs6qui0igkT s5OeP9DTLffhJmfKmdOLQ 1z7WjWo41Z18n IHdpZHRoPSIxNSUiIHZhb Opjxd7acU4zWg1+PGNvbC Q5kFF4pT8wNlPpEoG1PRw kV213YiZmiXXl Lvmyy1dip9trpHx3NeHqB VPqxjHmmPzpHII6g2KdKf 36N0XaeIggm4YyVff0xh9 2wWVdx0P8uHR7 R1FvOBUvgtlhfUKmgEsyG I0cMABwfozcEKHccF9mFX UeX7z4TlNwPcC7LMkbG1C ghdX7XRZplXQo DLluKSA6X70gg7I2JMFuX PHkQMC3iZS4iF6ooWjuvk ogbGVmdDsgdmVydGljYWw uFAexM045PJQk cCcxCFIazQ0bKACedJQbo JejWE6eRZMhglfmDnTKJu SILdFTRRYLF4aVXhPVTE9 8BV82sGWke1Y4 zXI8J8ElWXAjltipjxyas FE6GLPnVCNxmU05dNNrIB qxZq2lu3N5y779OVLcBQK xiD16Yc1tcSpq KOZvfXNGdJ3pnitll1dnu fnlMfKuBJUsDFy2OPa4NO UhiSqwVrPiYXL2DmL3YFF 1tIYbeD8zwIoy emykmI4mMgq+MDkvMDMvM Tn6MwjujRP+RJOlQLW7mO idLDjnUUNxsI2xJKUgC7j 1KbZjAvS5RXxy H1OtZJDelbdqAv74cN9vR pQcCbS1IQseV9VczoJ7SY MpwSOkFPxmGFN9S46in6C 4SZIgVZYzPQF0 rJY7zZ3qeBbcgsoimFVsd DsgdmVydGljYWwtYWxpZ2 69IJEhiJkoHmB1ITgiHAI xXF47XZ14bBZu c2T3tFB7R3XnWUDcxkdbr ktvpJP5OTReCEIotA91nY TzZPccRv3zz5L7y355IHJ rIEHijI19Zm9g bYqwZZCjsMYFdM2cpvmfi 0tdaarxIdBmKDHgXFy4KL w4FCIduOvjKvQvWMP7TnH 0AUC6mASwaX4g oTsszpcieV4kNla+TWFsZ TwvdGQ+OOJoZMY7rBylWK anMKShwL6zXCUtN2j1CsA lYnT5PPdcU5Yi WPOeolwdNf87tO4mQfGwO kH0OBbeI1BmvgE2MZHmeW KpQEjnVMD7R94ki3H5ZZP hEAFzBOX4qAZ2 bJ8fdCvnnvwaoMFynXxat cPgtIvpPKyyQFflL741AL PfaQqeNl85tOWmbRxkceL 1H6WcAcxisSJ+ FA46EMGcZY96oDEybCIic 2iycUz4PpUaKCJwTNR1pU abKJxva5HtOYQoU46fzIG qd7Z1TTPeeEax lTWgDtEgbOP6qP0yZMkbt ukvz3hexsdxEczwm2ausa 66uK97T24eCCqtLPZrKQC zMCUiIHZhbGln rv6ftR8eFh3+YNLcgHZ3i EA9mW3bHnLnIhC3CDsbF0 87BuQorHEmPahrg8yod4q gwSx7JcOjXCKv cpSaxHiyISM6h8HmYy69Q 29sIHdpZHRoPSIyMCUiIH CfcZqygq7cmF3rUq6+PC9 un9hdfw37lB72 dHI+UGHuBRN7xBgwHQyxB JFidS0bRCcoYfQ6KYUuRl VeuU60aZArLOyuUi7vjVl icSiqYY2xOWRf txkeh398BeMub0mqUOGsn XZxYRlvYLY1D97wg8E1FL JjMSGxPHP5dXZ3eN6pwLz nbjogbGVmdDsg wmIxmAvoHUtlFKfzU209M PJtiAhtBoBmvCBfM1bxzk WZSK7tJoauhJG+PHRkIHN 0eWxlPSdwYWRk uS9yNZLpD8j7RtWdWyJ4C OziF5MxisY6CJPemUUnAO YtpMQJfQ8ocofyd0yvrvo gIzAwMDAwMDt0 ZMa1SQNviXruDpBqMCP8D kD0OBL4gMRpxA3ayAuxwb lykK1oWfi+RklOOjwvdGQ +UXHlREA2nMig LNuhRBPmjO6cVZQhT8r2O cXsHsG3VRfqI3NqudF3IC QhyGCySZUmtGFZwU4nwea pc0gdhxutIcBu MWAfFSi3LAd8CZAvnKnkP iBhASD5KxL3GVN7rDQmnI 0qfBbnikvopK5aFmw+TVJ OOjwvdGQ+PHRk ZLH7aEfuOXgeVEYopU8qQ NEyG6k1AxCiEdT8NNqiP6 YjjyM7NMFvlSGiLWAczCR AuU2xfuvjo4lj ebzcKrMpPXSuYUw7OJh1W DAlzCqqTuDcXYX9IhC4YE G2yHQswH8orZqkxxhwmB7 wOyc+FNS3EZF6 IB49MO90Y1RtGockyGHtp +PHRhYmxlIHdpZHRoPS kkWKAsQpYqjHsqHM3dVj0 yZGVyLWNvbGxh cHNl (more content not included)... Normal [facility] Coding Summary.on 02-22-2021 Coding Summary. CD:[id number]:[id number] G h0bWw+PGhlYWQ+NX7HOAN kF12njJMlsA9CK1oDVS0V ONYPBWTEEB5QBY9acRJ5O AwdJ2PhlyUd AqyykUCiVB32IOs5XEP9j CosYWzqtF8opPTmC8r2Pv GbZH55dR98PCxmEIUoPrN 3LjZpbjsgbWFy A3reNkNvzFAgLhm+PHRhY mxlIHdpZHRoPScxMDAlJy VhbDgcGK7cNv9aRGCjOQQ vbGxhcHNlOiBj u7grHUPoGVjpCF4tbXwhN 9ZfrAF8LXVkp5f1Jk77fW I+KDYfZNS0gXpoICcgk43 4BxYkd5gjOKT3 vNGjJMowUTI7E04qx8L3C KMcRTYiXAZ4yWG3aG8rvV hwkrxfK2PfuLPmExS4CDJ 5qKThcI1cjHem kxxgqF3kBeh+U51WRN2DD HIAHE5IGqi9F8ZwZwjmoL I+FD70HDWjAE77gPRdjXN od6nnvYq7JmGb RHZyTWQ9qWvqWZluz1UtB PRwO67lyYAxy6S9OUXqhL zepLIvWwIbrRC7hB6oLNa fvbtbt9keqyip Iaelh0nmij53wZ86J61xF ArnOBLuSNM6AUIvBFLssX efal5jmK5gVq3+DOpqq0o bz9pbgKm1SqTv MOAybaCieEsoXFI6t2FxQ z53Q0UywCxqw9KdQag5vl 05sAAjl9Q7bRF5GVkbQUY bqM8mHUtqSjZ6 PXDsScFokB10hMFxOFajD r1dxVjcwCedLU4qRGOveo zwVSIfbY0sKYTcbREinId kOV9vGBGfpyyj x070MiSfUIA5JQPcgEXpD 2JgeY4cMbCyMVRfSDXjT4 QadXCrBTdcS476XFbvSeG 5AYBogtJmB0Wd JKAyvViyXiS4m0O3Ht0Yr 8AjoptmCWP4SZywYMT4Bm S8VfEpSiR1Q0JoVpz3QGV ueMouES6uO5Gf QGDasrysjytvjLR0TAVyX GIfwW95sYOiJVrfSx7yu6 I4i619BXGcEFAsyJ37Kl9 udDogMTBwdCBU mP4omcdea1vqjdldVrBnX KPjUKx9FMk2WOOpvPfdDg RjEGS3ToR1ZFQ6nVEhjR3 gmXwfelhvgQ0s Oyc+Z43qjB0kMEI7GRM8y tciVXBhtbMcQK57WD98L9 RyPjwvdGFibGU+PGRpdiB cjWdxQN8iEkUq e0rsh6DjFIkaA3AwVJZqL IyeWps8TSXcTUM1qEN0sY 0jPYUiRSshz9G5pOB0J8W imlQmmi6hr7aj SDMnXUcjX06cuIHby0O0Z ZFtjSR9QKPmyBjcEoSwdL 93Oyc+XRWubLqwi1LqErk qj1lmz9kxsPx6 BsHsIAWzlhLawRtxITQ6u 9DgDg60T43gFUdhPZRxEC NgPFMpKLQjrMzxmt9rbC6 wIi8+PGNvbCB3 jXS9fQ3iHPKmYdL3UVyhC 466FcUumUPlYyhwq1uer1 dhhJf2BoGtDZCqqvQubVo oYDH5r4RkMz69 Z90oXHviXNUoDPXnUSOeT QJrwXwjja0hdT2dEc9+PC 9fz4xuem28yL11kNT+PHR dOHM9kJdnNKzd CZKxfX0kSYicGmD5FHVpC bIhrJ68qUBeKDoeNg1gfS bsxHfsWO6aEZHhgnmum52 3LmDgd1gdUSKs lAYaOOyjJEQ7F47tg9E5U GLzCCFoQMD8gYV6bB1etZ lnbjogbGVmdDsgdmVydGl dMQumISsvT087 IHRvcDsnPlBhdGllbnQgT oWuVOv3B5OnXxv8YPIenF frSW3ctMEoBAufEf0sdGh biIyzOI7fFQQe xhxyl672BcKfc5frBWIby CGoVMeqQWY1T72kp3T3NT JgSNZtHTB5wVX2lA7coTq nbjogbGVmdDsg xxFocCgoFVjlTPfaW283W HRvcDsnPkJpcnRoIERhdG P0WM72KS24xUAcq4O4nOB 2L2AnFENvdpve stttyNA9PDWfGLCabS38M z0wuMtuZo8iOYJxQAI1LZ WkfKTjJ4KeqV6uOdAiSCL gVDZqM5YcuTVw JXfwI699RLksYuN4PBUck tHdB0UoFZIusNehYgQ0c4 S8Wd3IZ7Q8JV64RK34dUP yn4J7iBJ9S1Dp SHAzhvwpldnykNG5MWRxE BQhlP06Yw4gsGhjTd8sOO LfOWI4QFGzyBIoB5AejC5 yOiAjMDAwMDAw L3QpqSRtMBomZ831ISrzZ iD9GEYiulBaI0LoIJQvwT ncLvS8a1R7Od8ZHUi4BB4 7JN90gCJxx6Q2 dVV3M4ZwRMJsluutpdzop VV1KNFhXNQvjN03Rr0djU axVw4lMRCmKWI3OKMhbLM tE2VtvH0fDeWl ACHyTJDrV2KxcOBuCZjnD 602ITvdHjM9FHDoxzVkN1 BwJDGesAxxKfO0b6O8Vv2 JHRYyUY66GUQ2 sQP1FV99SE80X2RgDbagp GFibGU+PHRhYmxlIHdpZH RoPScxMDAlJyBzdHlsZT0 cQi0vAWNdNKTm lDxpzBCpMvUdw8emRXJmH ZkpVQ1pfJvaE2PeyAH4CO Wux5n8Lz93I35xX5HbkAR +BKAntJX2kUO9 kI2gSxBeWeU9IRhdD262L yMcxLFkCsjhd1akk4zciO m9OqR0QQBzmmSsqTmkZJX 1n9FuEn54E83r IHdpZHRoPSIxNSUiIHZhb Hzyye4stY3nKv3+PGNvbC V5zWI1rS4pBzKhQcT9SBt dG988TpAidCYi Faask9kdr0rgfMd7OrGuQ LBjttDgzLdlAXM9i6IvGh 02T6NhnRxmy8EpGak2hl2 1eBFml7G7yJO9 X9CpRRMwjshbwMAhwWhxK I3gLQAmvoboCIBxaE1jUR ZrZ1f1VrTcUtK4UTepF1Q axuA8VFNvzGLg YYdvOEP8O90kh6W3WEMeH FJsEYI6tMG3vC8lcGmbjl ogbGVmdDsgdmVydGljYWw vGBnsL791AKMz wMcqQZOzaZ1uWLIuqYPwk FbpPE2yLSSdneszUpQUBd WOZrRCTNYGJ1jZEbHRJG1 4PS17qPLhp3P9 dVL9Q2EeVERbpvjhsebqs HB7GIEpZHLpvK38rBBtFX yxQk3oc5K7z355TJRrIUF ajR01Ga9ktTxo AMPteJZTxO8vanjll3kgc jbkVnKcYZErSIx4GNc1VV EbfCuwJnDxDNP2ViW8RED 0mMZhjS8znAid exzniL8nYgw+MDkvMDMvM Vc7XihmmDD+GUHhSHE4lN aiHHjbPJWlgG0vAHVrK3g 4QgPgPeH4DPgs D7SfUQCoyrbaNg17cY4wR vNaPwR4LSugV2UibzM4IY VhsNKkFFzwWYS9H76ll7K 9OTYrBZUeYFP8 qWU9uC6ylAjdrppbdAOle DsgdmVydGljYWwtYWxpZ2 16VZFplVsqQgM0NUldHEM mLE71KJ95rCQp d8K1mGG5O7HyLQDpktwqh hktlNK1YTNfREOoeR19lQ SjAHafEi2rf2H7c250ZBJ aUTVrgZ65Zx6n kLxbBAVjpLHYwT0nlgqwb 7ermkeeYxBwAMXkJNn6QN y4HVBccZkxEjEjEOF6ObZ 3NQP9lIPqpP6t sQlfqawddN6qEmr+TWFsZ TwvdGQ+YNTnZZY1cZxwJO gxTSVmsG2cPRHsB1r2OiR jQfB6YAovV1Rq UARpbtagSm94yE5zQpNlL aV8XLvoR8CujxJ3BTGfpT ToXRxfFXF8C45ze2Q4HPH kKGGvYOG6mNP4 wB4ayZqpwkeuySZteZisf mTixIgxDUpjUYpgE840FX TyfQdcSq59vVRtuWunnkQ 3Z8BfZgijnNO+ KI05YSOzIX15rEJytOXua 8srbHc8CpBnMNInYPS7aT dmQKkyp2MuODNuT06fbGO im1U1JOQcmRut qAHtXqDdwPQ1iX3gDNece egbf1wwkfbfSebcc8clat 84eO80C93pIKrzXVBaTAN zMCUiIHZhbGln gw8faL0gJg9+DRZmaMT2g NJ1nW0mRqQaUyI6XFvtK3 68WhMkgLLhHntwg0nlw8r seSw0NxGgOMHp khKxkRcbZMB3p0PfNg83O 29sIHdpZHRoPSIyMCUiIH BooSeqga9aeQ6mDu0+PC9 rv0loew90lX68 dHI+EMZhOSP3qLvtZZxkO PFaxE3cVMctTzD8QAAgWb XsrR74iJIyOGfcKu6nkHr zgQbiTK4iILEb aotpz719DgWqq9ldTDNtl QWpQKneGKQ4I90yo0N9OJ FxIKLzPHD9gXL4gL7prEm nbjogbGVmdDsg huUxdItmXFgyFLpkS264B FYigWdtZrVycKNkN4xfoq IQLL8rDsnwmXU+PHRkIHN 0eWxlPSdwYWRk jZ5vBKPrK9t9VsHxVpD9Q YvyK3OswzP1QVAqjKNfZX ZzvINHpY0esnqhn7fucth gIzAwMDAwMDt0 NCl0GMBomHizBkHtJRV7Q uN0ROT0lUCcmX3puAvnwq dgpI9nYot+RklOOjwvdGQ +CQZbIYW3rLfn AEesQXAjnJ4cHCJnS8r7N hPiLmK5JCbzV6QmvsX6BB XiyZUzNXGitBHRnJ1euhk td8xxhfxpKtXw SUYhCAy0DOd2CIEppBqxP xFeWZU2ViC9ZYL3qHAhxU 2dzJcxocyofK3nTpi+TVJ OOjwvdGQ+PHRk HFH0eTvlQXnsQCUsiJ7gO NCuM2e4JzOrVyL2OZcxP5 VdywV4XFUbhIQkSCTonXM SaC4ypdryw2qs obroMpOwXRNuDYn8CAt2E OKacPaeRoBeJLM8RrV6FA I4yVPdsO6xnNntlnxggE9 wOyc+XVD7HXL1 EE17YV23Q0ZiBebfrTRbz +PHRhYmxlIHdpZHRoPS pdJSYfJmRbaThjGD4rLw5 yZGVyLWNvbGxh cHNl (more content not included)... Normal [facility] Patient Eval Forms Officeon 02-21-2021 Patient Eval Forms Office [id number]# 1.00CD:127 Normal [facility] Consenton 02-20-2021 Consent [id number]#1 .00CD:127 Normal [facility] Patient Eval Forms Officeon 02-20-2021 Patient Eval Forms Office [id number]#1 .00CD:127 Normal [facility] Patient History Officeon Patient History Office [id number]# 1.00CD:127 Normal [facility] Physician Orderon 02-16-2021 Physician Order [id number]# 1.00CD:127 Normal [facility] Sleep Office/Clinic Noteon 0 02-15-2021 Sleep [...] MOREAU, Beth Ramirez, PUL, LUZ MARIA [address] [facility] [place] [address]- Additional Instructions: after his testing is completed Problem List/Past Medical History Ongoing Smoker Historical No qualifying data Procedure/Surgical History broke leg. Medications Rewey 325 mg-5 mg oral tablet, 1 tab(s), Oral, q4hr, PRN Allergies No Known Medication Allergies Social History Alcohol Substance Abuse Tobacco Immunizations Vaccine Date Status Comments SARS-CoV-2 (COVID-19) mRNA BNT-162b2 vax 09/30/2020 Given Prophylaxis SARS-CoV-2 (COVID-19) mRNA BNT-162b2 vax 09/09/2020 Given Prophylaxis diphtheria/pertussis, acel/tetanus adult 12/05/2019 Given Normal [facility] Comment on above: Result Comment: Elec [...] MD 08/01/20 Final result Normal [facility] No acute abnormality of the cervical spine. Multilevel degenerative changes. [facility] [place], [place] Claudio, M[facility] Incoming Radiant Results From [employer]acs - 08/01/2020 1:22 PM EST EXAMINATION: CT [...] of the cervical spine. Multilevel degenerative changes. [place] EXAMINATION: CT OF THE CERVICAL SPINE [...] There is no prevertebral soft tissue swelling. [place] CT HEAD WO CONTRASTon 2020 CT [...] MD 08/01/20 Final result Normal [facility] Claudio, Mhpn Incoming Radiant Results From [employer] - 08/01/2020 1:20 PM EST EXAMINATION: CT [...] fossa. 2. No convincing acute intracranial abnormality. [facility] [place], [place] EXAMINATION: CT OF THE [...] of the visualized skull or soft tissues. [place], [place] 1. Streak artifact from dental amalgam limits evaluation of the posterior fossa. 2. No convincing acute intracranial abnormality. [place], [place] CT THORACIC SPINE WO CONTRAS Ton [...] MD 08/01/20 Final result Normal [facility] Claudio, Mhpn Incoming Radiant Results From [employer] - 08/01/2020 1:29 PM EST EXAMINATION: CT [...] fracture or malalignment of the thoracic spine. [place], [place] EXAMINATION: CT OF THE THORACIC SPINE [...] SOFT TISSUES: No paraspinal mass is seen. [place], [place] No acute fracture or malalignment of the thoracic spine. [place] XR ELBOW LEFT (MIN 3 VIEWS)o [...] MD 08/01/20 Final result Normal [facility] Claudio, [facility] Incoming Radiant Results From [employer]acs - 08/01/2020 1:11 PM EST EXAMINATION: THREE [...] the left elbow. 2. Minimal degenerative changes. [place] EXAMINATION: THREE XRAY VIEWS OF THE [...] The soft tissues demonstrate no acute abnormality. [facility] [place] 1. No acute osseous abnormality identified of the left elbow. 2. Minimal degenerative changes. [place], [place] Vital Signs Date Time Vital Sign Value Performing Clinician Facility 05-25-2024 15:41-0500 Body height 181.6 cm [facility] [employer] Work Phone: [facility] 05-25-2024 15:41-0500 Body mass index (BMI) [Ratio] 26.41 kg/m2 [facility] Work Phone: [facility] 05-25-2024 15:41-0500 Body weight 87.09 kg [facility] Work Phone: [facility] 01-30-2024 10:58-0400 Body height 185.42 cm [facility] 01-30-2024 10:58-0400 Body mass index (BMI) [Ratio] 24.6 kg/m2 [facility] 01-30-2024 10:58-0400 Body weight 84.82 kg [facility] 01-30-2024 10:58-0400 Diastolic blood pressure 68 mm[Hg] [facility] 01-30-2024 10:58-0400 Heart rate 57 /min [facility] 01-30-2024 10:58-0400 Systolic blood pressure 149 mm[Hg] [facility] 09-19-2023 08:30-0400 Body height 185.42 cm [facility] 09-19-2023 08:30-0400 Body mass index (BMI) [Ratio] 25.6 kg/m2 [facility] 09-19-2023 08:30-0400 Body weight 87.99 kg [facility] 09-19-2023 08:30-0400 Diastolic blood pressure 72 mm[Hg] [facility] 09-19-2023 08:30-0400 Heart rate 57 /min [facility] 09-19-2023 08:30-0400 Systolic blood pressure 162 mm[Hg] [facility] 06-06-2023 10:15-0500 Body height 185.42 cm Adriana Mejia Other [employer] [facility] [employer] Other 06-06-2023 10:15-0500 Body mass index (BMI) [Ratio] 25.54 kg/m2 Adriana Mejia Other [employer] Other 06-06-2023 10:15-0500 Body weight 87.82 kg Adriana Mejia Other [employer] Other 06-06-2023 10:15-0500 Diastolic blood pressure 70 mm[Hg] Adriana Mejia Other [employer] Other 06-06-2023 10:15-0500 Systolic blood pressure 159 mm[Hg] Adriana Mejia Other [employer] Other 04-19-2023 09:30-0400 Body height 185.42 cm Adriana Mejia Other [employer] Other 04-19-2023 09:30-0400 Body mass index (BMI) [Ratio] 24.7 kg/m2 Adriana Mejia Other [employer] Other 04-19-2023 09:30-0400 Body weight 84.91 kg Adriana Mejia Other [employer] Other 04-19-2023 09:30-0400 Diastolic blood pressure 77 mm[Hg] Adriana Mejia Other [employer] Other 04-19-2023 09:30-0400 Systolic blood pressure 159 mm[Hg] Adriana Jackie Other [employer] Other 01-06-2022 07:59-0400 Body temperature 97.7 [degF] Kirill Alfred [facility] 01-06-2022 07:59-0400 Diastolic blood pressure 88 mm[Hg] Kirill Simon [facility] 01-06-2022 07:59-0400 Heart rate 60 /min Kirill Simon [facility] 01-06-2022 07:59-0400 Respiratory rate 15 /min Kirill Alfred [facility] 01-06-2022 07:59-0400 SaO2% (BldA) [Mass fraction] 98 % Kirill Simon [facility] 01-06-2022 07:59-0400 Systolic blood pressure 202 mm[Hg] Kirill Simon [facility] 08-01-2020 13:03-0500 Body Temperature 97.59 [degF] [facility] [place] 08-01-2020 12:35-0500 BP Diastolic 73 mm[Hg] [facility] [place] 08-01-2020 12:35-0500 BP Systolic 149 mm[Hg] [place] 08-01-2020 12:35-0500 Pulse (Heart Rate) 76 /min Tomi [place] 08-01-2020 12:35-0500 Pulse Oximetry 99 % [place] 08-01-2020 12:35-0500 Respiratory Rate 18 /min [facility] [place] Encounters Encounter Date Encounter Type Care Provider [...] Not Available Start: 01-30-2024 End: 01-30-2024 ambulatory [facility] Work Phone: Start: 01-30-2024 End: 01-30-2024 Patient encounter procedure [facility] Work Phone: Start: 12-02-2023 End: 12-02-2023 ambulatory Brett Mantilla MD Facility:[facility] Start: 11-11-2023 End: 11-11-2023 ambulatory Brett Mantilla MD Facility:[facility] Start: 10-28-2023 End: 10-28-2023 ambulatory Brett Mantilla MD Facility:[facility] Start: 10-14-2023 End: 10-14-2023 ambulatory Brett Mantilla MD Facility:[facility] Start: 09-19-2023 End: 09-19-2023 ambulatory [facility] Work Phone: Start: 09-19-2023 End: 09-19-2023 Patient encounter procedure [facility] Work Phone: Start: 06-06-2023 End: 06-06-2023 ambulatory Adriana Mejia Other [employer] Other Start: 06-06-2023 Office outpatient vi sit 15 minutes Adriana Mejia [facility] Start: 04-25-2023 End: 04-25-2023 ambulatory Adriana Mejia Other [employer] Other Start: 04-25-2023 Telephone encounter Adriana Mejia [facility] Start: 04-19-2023 End: 04-19-2023 ambulatory Adriana Mejia Other [employer] Other Start: 04-19-2023 Patient encounter procedure Adriana Mejia [facility] Start: 01-13-2022 End: 01-14-[address] ADRIANA MEJIA Facility:[facility] Start: 01-06-2022 End: 01-06-2022 Emergency department patient visit Kirill Simon [facility] Start: 01-06-2022 End: 01-06-[address] LENA MARIE Facility:[facility] Start: 01-03-2022 End: 01-03-2022 Patient encounter procedure ADRIANA MEJIA [facility] Start: 10-09-2021 End: 10-09-2021 Patient encounter procedure Beth Bradley [facility] Start: 08-01-2020 End: 08-01-2020 Emergency department patient visit TOMI ESTRELLA [facility] Start: 08-01-2020 End: 08-01-2020 Emergency department patient visit Tomi Estrella Work Phone: [facility] ED Comment on [...] - Td) DTaP/Tdap/Td vaccine (2 - Td) [place] Start: 03-01-2024 Influenza vaccination Influenza Vaccine (#1) [facility] Start: 04-27-2020 Pneumococcal Vaccine: 65+ Years (2 of 2 - PPSV23 or PCV20) Pneumococcal Vaccine: 65+ Years (2 of 2 - PPSV23 or PCV20) [facility] Start: 03-01-2020 Influenza vaccination Flu vaccine (#1) [place] Start: 2018 Pneumococcal 65+ years Vaccine (1 of 1 - PPSV23) Pneumococcal 65+ years Vaccine (1 of 1 - PPSV23) [place] Start: 2003 Screening for malignant neoplasm of colon Colon cancer screen colonoscopy [place], [place] Start: 2003 Shingles Vaccine (1 of 2) Shingles Vaccine (1 of 2) [place] Start: 1993 Lipid panel Lipid screen [place], [place] Start: 1953 Abdominal aortic aneurysm screening AAA screen [place], [place] Start: 1953 Hepatitis C screening Hepatitis C screen [place], [place] Start: 1955 Screening for malignant neoplasm of colon [facility] XR Lumbar spine 2 or 3 Views [facility] Immunizations Immunization Date Immunization Notes Care Provider Fa mario 04-19-2023 influenza virus vaccine, unspecified formulation [facility] 04-19-2023 influenza, high dose seasonal, preservative-free Adriana Mejia Other [employer] [facility] [employer] Other 09-30-2020 COVID-19, mRNA, LNP- S, PF, 30 mcg/0.3 mL dose; Translations: [Pfizer-BioNTech COVID-19 Vaccine] [facility] Comment on above: Reason for Medicatio n: Prophylaxis 09-09-2020 COVID-19, mRNA, LNP- S, PF, 30 mcg/0.3 mL dose; Translations: [Pfizer-BioNTech COVID-19 Vaccine] [facility] Comment on above: Reason for Medicatio n: Prophylaxis 12-05-2019 tetanus toxoid, reduced diphtheria toxoid, and acellular pertussis vaccine, adsorbed; Translations: [Adacel (Tdap)] [facility] 04-27-2019 influenza virus vaccine, split virus (incl. purified surface antigen) Adriana Mejia Other [facility] [employer] Other 04-27-2019 influenza virus vaccine, unspecified formulation [facility] 04-27-2019 pneumococcal conjuga te vaccine, 13 valent Adriana Mejia Other [facility] 07-08-2017 diphtheria, tetanus toxoids and acellular pertussis vaccine, unspecified formulation Adriana Mejia Other [facility] Payers Date Payer Category Payer Private Health Insurance A[employer] mber Subscriber Plan / Payer (Effective 2023-Present) Name: Mannie Jarquin Relation to Subscriber: Self Name: Mannie Jarquin Payer ID: Not on file Group ID: Not on file Type: Not on file Address: [facility] [address] [place] [id number] 2023 Unknown 2018 Medicare 1961 Medicare [id number] 1959 Private Health Insurance [facility] [id number] 1953 Unknown [id number] 1953 Unknown [id number] 1953 Unknown [id number] 1953 Unknown [id number] .196 1953 Unknown [id number] .196 1953 Unknown [id number] .196 1953 Unknown [id number] .196 1953 Unknown [id number] .[id number] 1953 Unknown [id number] .[id number] Social History Date Type Detail Facility Start: 08-01-2020 End: 05-25-2024 Tobacco smoking status NHIS Current every day smoker [place], [place] History of tobacco use Cigarette Smoker [place] Start: 08-01-2020 End: 05-25-2024 Tobacco use and exposure Never used [place] Start: 08-01-2020 End: 05-25-2024 Alcohol intake Current drinker of alcohol (finding) [place] Start: 08-01-2020 Alcohol Comment daily 3-4 beer s per day [place], [place] Start: 1955 Sex Assigned At Not on file [place] Tobacco [facility] Comment on above: smokes 1 ppd. Start: 05-25-2024 Sex Assigned At Male F [facility] Start: 1955 Sex Assigned At Male F [facility] Start: 05-25-2024 History of Social function [facility] Start: 05-25-2024 Alcohol Comment [facility] Functional Status Date Assessment Result Facility 01-06-2022 Functional Status N/A [facility] Clinical Notes 10-04-2021 to 05-25-2024 Rowan [...] to verify the correct patient, procedure, equipment, ground crewman mission support and site/side marked as required. Patient was [...] lateral subluxation of the right patella with imfe-wv-kidk changes and advancing arthritis with no subluxation of the left patellofemoral joint with fairly well-preserved mediolateral compartments seen on x-ray from [place] as well as weight-bearing films here in [...] knee. TE Vera documented in this encounter [facility] 05-25-2024 Instructions TE Vera - 05/25/2024 3:45 [...] support the knee. documented in this encounter [facility] 06-06-2023 Evaluation note Encounter Date Diagnosis Assessment Notes May, Removal of michelle (ICD-10 - Z48.02) Pt tolerated staple removal well. Pt denies LOC or fall without reason. He slipped in slippers on an icy patio with dog outside. Steristrips applied.. Keep area clean. [employer] Other 10-20-2023 Evaluation note* Encounter Date Diagnosis [...] to quit smoking. Agrees [facility] Other 07-09-2022 Evaluation + Plan noteExtracted from: Title:ED Note Author:Ramon Gauthier PA-C te:01/06/22 Otitis externa (H60.90: Unsp ecified otitis externa, unspecified ear) Orders: ciprofloxacin-dexamethasone otic, 4 drop(s), Ear-Right, BID for 7 day(s), 10 mL, Refill(s) 0 [facility]07-09-2022 Hospital Discharge instructions Patient Education 01/06/2022 [...] antibiotic even if your condition improves. Take vcdh-vbe-tnwpwlj and prescription medicines only as told by [...] 06/17/2006 Document Revised: 11/21/2018 Document Reviewed: 11/21/2018 [employer] Patient Education 2020 [employer]. 01/06/2022 08:25:56 Ear Drops, Adult Ear Drops, [...] 06/11/2002 Document Revised: 05/30/2018 Document Reviewed: 06/20/2017 [employer] Patient Education 2020 [employer]. Follow Up Care 01/06/2022 07:58:43 With:Elizabeth Veliz Address: [address] [place] [address]- Business (1) When:01/09/2022 08:19:10 With:ADRIANA MEJIA Address: [address] [place] [address]- Business (1) When:01/09/2022 08:19:07 [facility]04-06-2022 Hospital Discharge instructions Follow Up Care 10/04/2021 10:34:18 With:Kirk MOREAU, MANAV Vincent, LUZ MARIA Address: [address] [place] [address] [place] [address]- When:1 year [facility] No data available for this section [facility] noteNo InformationNort Lailaihui Other Evaluation note* Diagnosis Onset Date Resolution Status Lumbar pain with radiation down both legs acute [facility] Work Phone: Evaluation noteNo assessment information available [facility] Work Phone: Evaluation note* Diagnosis Localized [...] screws 2014 Hospitalization History SEE SURGICAL HX [employer] Other Hospital Discharge instructions No data available for this section [facility] No data available for this section [facility] Discharge Instructions * Instructions* George Alcala DO - 08/01/[address] for visiting [facility] Emergency Department. You need to call Adriana Mejia MD to make an appointment as directed for follow up. Should you have any questions regarding your care or further treatment, please call [facility] Emergency Department at [phone]. Take any medications as prescribed, if given [...] section and content) DATE CREATED AUTHOR 08/02/2020 [facility] DATE CREATED AUTHOR AUTHOR'S ORGANIZ ATION 01/17/2022 [facility] [facility] DATE CREATED AUTHOR AUTHOR'S ORGANIZ ATION 01/18/2022 [facility] DATE CREATED AUTHOR AUTHOR'S ORGANIZ ATION 12/10/2023 DATE CREATED AUTHOR AUTHOR'S ORGANIZ ATION 05/27/2024 [facility] EPIC Care Team (unrecognized sect ion [...] BE BASED ON THE PRIMARY CLINICAL RECORDS. [employer] provides no warranty or guarantee of the accuracy or completeness of information in this document.
[2024-07-13 10:12] VITALS: BP 197/83; BP 214/86; PULSE 65; PULSE 66; O2SAT 99
[2024-07-13] MEDS: BUPIVACAINE HCL 0.25% PF 25 MG/10 ML VIAL 4 ML INJ (10:14)
[2024-07-13] MEDS: LIDOCAINE HCL 2% 400 MG/20 ML MDV 12 ML INJ (10:15)
[2024-07-13] MEDS: METHYLPREDNISOLONE ACETATE 40 MG/ML VIAL 80 MG INJ (10:15)
--- NOTE | 2024-07-13 10:27 | P.ON_ITS ---
Date of procedure: 07/13/24 Pre-op diagnosis: Pain due to lumbar spondylosis without myelopathy Post-op diagnosis: same as pre-op Procedure: Procedure: Bilateral L4-5, L5-S1 radiofrequency ablation Medications: Bupivacaine 0.25% 6cc, lidocaine 2% 6cc, depomedrol 80mg The patient was seen and examined in the preoperative holding area.? The site was marked.? Written informed consent was obtained and placed on the chart.? The patient was brought to the medical procedure unit and placed in the prone position.? A timeout was completed verifying correct patient, procedure, positioning, and special requirements.? The skin overlying the target points, the designated medial branch, were prepped and draped in the usual sterile fashion.? The target point was achieved with a 20-gauge 15 cm with a 10 mm curved active tip radiofrequency cannula under direct fluoroscopic visualizati on.? The needle was inserted at level L4 on the right side. Needle tip position was confirmed with lateral fluoroscopic position.? Motor stimulation was carried out at 2 Hz up to 5 volts with the absence of extremity activity.? This was repeated at level L5, S1 on right side.?? Sensory stimulation was carried out.? Concordant pain was realized at the above- mentioned sites.? Then radiofrequency lesioning was carried out times 90 seconds at 80 degrees times 2 lesions at each level.? The radiofrequency probe was removed prior to cannula removal.? The above-mentioned injectate was placed in 1 mL increments.? The needle was removed. The same procedure, with the same steps, was then completed on the left side at the same levels. Insertion sites were covered.? The patient was taken to the postoperative recovery area and monitored for an appropriate length of time before being found suitable for discharge in the company of a responsible adult. Anesthesia: Local Surgeon: Brett Mantilla Pathology: none sent Condition: stable Disposition: no change
== END 2024-07-13 10:31 | disposition home or self-care (01) ==
PROVIDERS: PCP Family Medicine; Visit Provider Anesthesiology
DX: M47.816 Spondylosis without myelopathy or radiculopathy, lumbar region (principal)
CPT/HCPCS: 64635; 64636; J0665; J1010

== ENCOUNTER 2024-08-20 11:20 | Outpatient (OUT) | payer MEDICARE, SELFPAY ==
--- NOTE | 2024-08-20 11:53 | P.CN_ITS ---
Consult Note: HPI Data of Consult Requesting Physician: Xiao Santamaria NP Primary Care Provider: Adriana Downs MD Consult Narrative Reason for consult: f/u Narrative: Mannie Schultz a 69 year old male presents for evaluation and management of low back pain. recently underwent repeat bilateral L4/5 L5/S1 facet RFA with increased pain per pt. reports numbness tingling and weakness of BLE with standing and walking, improved with sitting and forward flexion. Currently pain 3/10 tightness, sharp, stiffness. 1 week ago pt stopped meloxicam in preparation for total knee replacement. cc:: CC: Xiao Santamaria NP Review of Systems ROS Status of ROS 10 or more systems reviewed and unremark able except as noted in history and below Musculoskeletal Reports: back pain, extremity pain and joint pain PFSH PFSH Medical History Low back pain ?M54.50 - Low back pain, unspecified (ICD-10) CPAP (continuous positive airway pressure) dependence ?Z99.89 - Dependence on other enabling machines and devices (ICD-10) Sleep apnea ?G47.30 - Sleep apnea, unspecified (ICD-10) Smoker ?F17.200 - Nicotine dependence, unspecified, uncomplicated (ICD-10) Hypertension ?I10 - Essential (primary) hypertension (ICD-10) Surgical History S/P inguinal hernia repair ?Z98.890 - Other specified postprocedural states (ICD-10) ?Z87.19 - Personal history of other diseases of the digestive system (ICD-10) History of surgery on lower extremity ?Z98.890 - Other specified postprocedural states (ICD-10) Social History Smoking status: Never smoker Little interest or pleasure in doing things: not at all Feeling down, depressed, or hopeless: not at all Meds Home Medications and Allergies Home Medications ?Medication ?Instructions ?Recorded ?Confirmed ?Type escitalopram oxalate 10 mg tablet 10 mg PO DAILY 10/14/23 07/13/24 History lamotrigine 25 mg tablet 25 mg PO DAILY 10/14/23 07/13/24 History losartan 25 mg tablet 50 mg PO DAILY 10/14/23 07/13/24 History meloxicam 15 mg tablet 15 mg PO DAILY 10/14/23 07/13/24 History Allergies Allergy/AdvReac Type Severity Reaction Status Date / Time No Known Drug Allergies Allergy Verified 07/13/24 09:33 Exam Constitutional Documenting provider has reviewed patient's vital signs: yes Common normals: no apparent distress, oriented x3, healthy appearing, alert and well nourished General appearance: cooperative HENMT Common normals: normocephalic, hearing grossly normal bilaterally and moist oral mucous membranes Head and scalp: normocephalic Eye Common normals: PERRL Pupil: PERRL Neck & C-Spine Common normals: full ROM General: normal visual inspection Chest Common normals: inspection of chest normal Respiratory Common normals: normal respiratory effort, no retractions and no use of accessory muscles Back & Pelvis Lumbar spine/lower back: ROM limited, pain with ROM, lumbar spinal tenderness and straight leg raise positive left Sacroiliac joints: SI joint(s) abnormal Other: sensation intact BLE strength 5/5 in BLE on exam pt reports increased pain with standing and walking with heaviness and weakness of BLE Neuro Common normals: oriented x3, CN's II-XII intact bilaterally, moves all extremities, no focal motor deficits, no sensory deficits noted and deep tendon reflexes 2+ bilaterally Sensorium/orientation: alert Motor exam: strength 5/5 throughout and no movement abnormalities noted Psych Common normals: mental status grossly normal, thought process normal, cooperative, affect normal, speech normal and activity/motor behavior normal Speech: normal speech Thought process: normal thought process Assessment and Plan Assessment and Plan (1) Lumbar spondylosis: (2) Lumbar degenerative disc disease: (3) Lumbar stenosis with neurogenic claudication: Plan as discussed today with pt and his daughter pt has notable pain and reported symptoms of discogenic low back pain and lumbar stenosis with NC. pt noticed increased pain a few weeks after his lumbar RFA and has continued to get worse, however 1 week ago he had to stop his meloxicam in preparation for his total knee replacement. I do believe the pt is in his healing phase from his repeat L4-5 L5-S1 facet RFA and could benefit from NSAIDs and potentially a steroid however he cannot take these at this time. encouraged PRN tylenol. start baclofen 5-10mg TID PRN pain/spasms risks vs benefits reviewed. update lumbar MRI without contrast to assess lumbar stenosis with NC, lumbar DDD, and chronic low back pain >6 months unresponsive to greater than 6 weeks of PT/HEP, tylenol, NSAIDs, heat, and ice. f/u to review lumbar MRI and delayed response to RFA with Dr Mantilla. Can consider lumbar MATTHEW as discussed today based on symptoms and lumbar MRI results.
== END 2024-08-20 11:21 | disposition home or self-care (01) ==
PROVIDERS: PCP Family Medicine; Visit Provider Nurse Practitioner
DX: M47.816 Spondylosis without myelopathy or radiculopathy, lumbar region (principal); M51.369 Other intervertebral disc degeneration, lumbar region without mention of lumbar back pain or lower extremity pain; M48.062 Spinal stenosis, lumbar region with neurogenic claudication
CPT/HCPCS: G0463

== ENCOUNTER 2024-08-27 09:33 | Outpatient (OUT) | payer MEDICARE, SELFPAY ==
--- NOTE | 2024-08-27 09:39 | MR_ITS ---
The [address] [address] Patient Name: ROSALIO JARQUIN MRN: [id number] date: 1955 Sex: M Assigned Patient Location: MRI Current Patient Location: MRI Accession/Order Number: [id number] Exam Date: 08/27/2024 11:37 Report Date: 08/27/2024 11:56 At the request of: LUIS BLACK NP Procedure: MR lumbar spine wo con MRI LUMBAR SPINE WITHOUT CONTRAST COMPARISON: Plain films 09/19/2023 CLINICAL DATA: Chronic low back pain with lower extremity weakness. No reported injury. Multiecho imaging in the axial and sagittal plane was performed without contrast. Mild dextroscoliotic curvature is visualized. There is mild retrolisthesis of L2 on L3 and minimal of L3 on L4 and L5 on S1. There are no acute compression fractures or marrow edema. There are degenerative endplate signal changes, greatest at L3-4. Endplate spurring is noted. The conus medullaris is within normal limits for caliber, position and signal intensity. There is some thickening and clumping the nerve roots in the lumbar region and arachnoiditis is not excluded. An upper pole right renal cyst is present. No paraspinal soft tissue abnormalities are seen. At T12-L1, there is no disc disease or stenosis. At L1-2, there is narrowing of the disc space. Disco-osteophytic bulging is visualized, greater toward the neural foramen and asymmetric extending laterally on the right. There is mild facet disease. There is moderate thecal sac effacement. Mild to moderate right foraminal encroachment is present. At L2-3, there is narrowing of the disc space. There is disco-osteophytic bulging which extends laterally on both sides. Minor facet and ligamentous hypertrophy is present. There is moderate to severe thecal sac effacement. Moderate foraminal encroachment is noted, greater on the left. At L3-4, there is narrowing of the disc space. Disco-osteophytic bulging is present asymmetric extending laterally on the left . There are is bilateral facet and ligamentous hypertrophy, left slightly worse than right. There is moderately severe thecal sac effacement. Mild to moderate right and moderate to severe left foraminal impingement is visualized. At L4-5, there is narrowing of the disc space. Disco-osteophytic bulging is visualized with extension laterally, slightly worse than right. There is facet and ligamentous hypertrophy. Moderate to severe thecal sac effacement is visualized. There is potentially moderate foraminal encroachment on both sides. At the lumbosacral junction, there is narrowing of the disc space. Disco-osteophytic bulging is seen with extension laterally on both sides. There is facet hypertrophy, right slightly worse than left. There is no significant thecal sac effacement. Mild left and mild to moderate right foraminal encroachment is seen. 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 POSSIBLE ARACHNOIDITIS. Impression dictated by: Maranda Vicente M.D.08/27/2024 11:56 AM Dictation Location: [facility]ST[email or web address] Electronically authenticated by: [id number] Y Date: 08/27/2024 11:56
--- OUTSIDE RECORDS SUMMARY | 2024-08-27 09:51 | XMS_ITS | CCD ---
Author Organization [facility] Care Team Providers Care Rags Laborer Name Role Phone Adriana Mejia Primary Care Provider TOMI ESTRELLA Attending Unavailable ADRIANA MEJIA Primary Care Unavailable ADRIANA MEJIA Primary Care Physician Esther Padilla Unavailable Unavailable CYNTHIA, DR LENA Campbell Attending Unavailable MARIE, DR LENA Campbell Consulting Unavailable JACKIE, DR ADRIANA Hammond Primary Care Unavailable CYNTHIA, DR LENA Campbell Admitting Unavailable JACKIE, DR ADRIANA Hammond Attending Unavailable JACKIE, DR ADRIANA Hammond Primary Care Unavailable MEJIA, DR ADRIANA Hammond Admitting Unavailable ZIEBER, DR SIMRAN Campbell Consulting Unavailable JACKIE, DR ADRIANA Hammond Consulting Unavailable Adriana Mejia Unavailable Unavailable Primary Care Provider Unavaillevar Mantilla MD, Brett Wilkins Attending Unavailable Jose Rafael MOREAU, Andrius Franky Attending Unavailable Jose Rafael MOREAU, Andrius Franky Attending Unavailable Jose Rafael MOREAU, Andrius Franky Attending Unavailable Jose Rafael MOREAU, Andrius Franky Attending Unavailable Adriana Mejia MD Primary Care Provider ANGUS DARNELL Attending Unavailable ANGUS DARNELL Referring Unavailable BARBARA BLAND Referring Unavailable BARBARA BLAND Attending Unavailable BARBARA BLAND Referring Unavailable DO Angus Darnell Admitting Unavailable DO Angus Darnell Attending Unavailable DO Angus Darnell Referring Unavailable Angus Darnell Admitting Unavailable Angus Darnell Attending Unavailable Angus Darnell Referring Unavailable Allergies Allergy Classification Reported Allergen(s) Allergy Type Date of Onset Reaction(s) Facility (3 sources) patient allergy list reviewed by nurse or physicia Propensity to adverse reactions 9 Comment:Done [employer] Other (3 sources) Allergies Reconciled Propensity to adverse reactions Unknown [employer] Other (1 source) No Known Medication Allergies; Translations: [No Known Medication Allergies] Propensity to adverse reactions (disorder) [facility] Repository Medications Current Medications Medication Drug Class(es) Dates [...] tablet (3 sources) Opioid Agonist Start: 11-03-2018 [place] 325 mg-5 mg oral tablet 1 tab(s), [...] Status: Ordered escitalopram 10 mg oral tablet (15 sources) Serotonin Reuptake Inhibitor Start: 08-24-2024 take 1 tablet by mouth once daily escitalopram 10 mg Tab 10 mg = 1 tab(s), Oral, Daily, Anxiety Start Date: 08/24/24 Status: Ordered Start: 01-21-2024 take 1 tablet by musa th once daily Escitalopram Oxalate Active 0 .ROUTE [...] 08/01/2020 Active lamoTRIgine 25 mg oral tablet (15 sources) Mood Stabilizer, Anti-epileptic Agent Start: 08-24-2024 take 1 tablet by mouth at bedtime lamotrigine 25 mg Tab 25 mg = 1 tab(s), Oral, Bedtime, Depression Start Date: 08/24/24 Status: Ordered Start: 11-01-2023 End: 01-28-2024 take 1 tablet [...] at bedtime for 0 *Pick strength-form from [facility] for eRX* Dec, Active loratadine 10 mg oral tablet (13 sources) Start: 09-17-2023 loratadine (Cl aritin) 10 MG tablet Daily 09/17/2023 Active Start: 10-31-2020 take 1 tablet by musa th once daily Loratadine 10MG Loratadine 10MG, 1 (one) Tablet daily # 30, 10/31/2020, Ref. x2. Active Oral daily for 30 *Pick strength-form from [employer] for eRX* October, Active losartan potassium 50 mg oral tablet (15 sources) Angiotensin 2 Receptor Brandi Start: 08-24-2024 take 1 tablet by mouth once daily losartan 50 mg Tab 50 mg = 1 tab(s), Oral, Daily, High blood pressure Start Date: 08/24/24 Status: Ordered Start: 10-21-2023 End: 10-25-2023 take 1 tablet [...] ( ) meloxicam 15 mg oral tablet (13 sources) Nonsteroidal Anti-inflammatory Drug Start: 12-03-2023 take [...] Jackie Hammond methocarbamol 750 mg oral tablet (7 sources) Muscle Relaxant Start: 05-28-2023 take 1 [...] mg, Intra-articular, Once PRN Procedure, Starting on 05/25/24 at 1613, For 1 dose predniSONE 20 mg oral tablet (2 sources) Start: 09-19-2023 End: 01-30-2024 take 20 mg by mouth twice daily Prednisone Discontinued 20 MG PO Twice daily September 19, 2023 12:00am January 30, 2024 11:17am Problems Active Problems Problem Classification Problem Date Documented Date Episodic/Chronic Anxiety disorders (1 source) Anxiety 08-24-2024 Chronic Essential hypertension (5 sources) Essential hypertension; Translations: [Essential (primary) hypertension] Chronic Malaise and fatigue (1 source) Other fatigue Episodic Miscellaneous mental health disorders (3 sources) Transient insomnia; Translations: [Adjustment insomnia] Episodic Mood disorders (1 source) Depressive disorder 08-24-2024 Chronic Osteoarthritis (11 sources) Degenerative joint disease involving multiple joints; [...] neoplasm of prostate Episodic Residual codes; unclassified (5 sources) Obstructive sleep apnea syndrome; Translations: [Obstructive sleep apnea (adult) (pediatric)] Onset: 10-09-2021 Chronic Spondylosis; intervertebral disc disorders; other back problems (3 sources) Low back pain; Translations: [Low back pain radiating to both legs] 09-19-2023 Episodic Substance-related disorders (12 sources) Smoker; Translations: [Nicotine dependence, cigarettes, uncomplicated] Onset: 01-13-2022 11-03-2018 Chronic Comment on above: Added secondary to d ocumentation in Social History. Past or Other Problems Problem Classification Problem Date Documented Da te Episodic/Chronic Mood disorders (3 sources) Mood disorders; Translations: [Depression, controlled] Results Test Name Value Interpretation Reference Range Facility CT LOWER EXTREMITY W/O CONTR AST RIGHTon 08-26-2024 Exam Date/Time: 08/24/2024 14:01 EST Reason for Exam: OA RIGHT KNEE Report IMPRESSION: DEGENERATIVE ARTHRITIC CHANGE. CLINICAL HISTORY: OA RIGHT KNEE COMMENT: Unenhanced right lower extremity images were obtained. There are small adjacent bone cysts involving the right femoral head anteriorly. Bones of the right hip are otherwise unremarkable, without evidence of fracture or dislocation. There are degenerative arthritic changes at the patellofemoral joint, with joint space narrowing and marginal hypertrophic spurring. There is slight joint space narrowing at medial and lateral knee joint compartments with minimal marginal bony hypertrophic spurring. There is a knee joint effusion. No fracture nor dislocation is noted. Bones of the right ankle are unremarkable. All CT scans at this facility use dose modulation, iterative reconstruction, and/or weight based dosing when appropriate to reduce radiation dose to as low as reasonably achievable. Ordering Provider: Angus Darnell FINAL REPORT Dictated: 08/26/2024 10:09 am José Macdonald M.D. Signed (Electronic Signature): 08/26/2024 10:09 am Signed by: José Macdonald M.D. Transcribed by: ARNOLD Technologist: ARIE [facility], Radiologist, - 08/26/2024 Exam Date/Time: 08/24/2024 14:01 EST Reason for Exam: OA RIGHT KNEE Report IMPRESSION: DEGENERATIVE ARTHRITIC CHANGE. CLINICAL HISTORY: OA RIGHT KNEE COMMENT: Unenhanced right lower extremity images were obtained. There are small adjacent bone cysts involving the right femoral head anteriorly. Bones of the right hip are otherwise unremarkable, without evidence of fracture or dislocation. There are degenerative arthritic changes at the patellofemoral joint, with joint space narrowing and marginal hypertrophic spurring. There is slight joint space narrowing at medial and lateral knee joint compartments with minimal marginal bony hypertrophic spurring. There is a knee joint effusion. No fracture nor dislocation is noted. Bones of the right ankle are unremarkable. All CT scans at this facility use dose modulation, iterative reconstruction, and/or weight based dosing when appropriate to reduce radiation dose to as low as reasonably achievable. Ordering Provider: Angus Darnell FINAL REPORT Dictated: 08/26/2024 10:09 am José Macdonald M.D. Signed (Electronic Signature): 08/26/2024 10:09 am Signed by: José Macdonald M.D. Transcribed by: ARNOLD Technologist: ARIE [facility] [employer] [place] LOWER EXTREMITY W/O CONTR AST RIGHTOrdered By: Radiologist Radiology on 08-26-2024 [facility] [employer] Work Phone: ABO/Rh Retypeon 08-24-2024 ABO/Rh Retype Interp Positive Invalid Interpretation Code [facility] Comment on above: Performed By: #### 1 [id number] #### [facility] [address] [place] [address] BLOOD BANKOrdered By: Elsie Jarrell on 08-24-2024 ABO/Rh Retype Interp Positive Invalid Interpretation Code [facility] BB Subsection BMPon 08-24-2024 Anion gap [Moles/Vol] 12 mmol/L Normal 6-16 [facility] Comment on above: Performed By: #### 2 [id number] #### [facility] [address] [place] [address] Calcium [Mass/Vol] 9.1 mg/dL Normal 8.9-11.[address] [facility] Comment on above: Performed By: #### 2 [id number] #### [facility] [address] [place] [address] Chloride [Moles/Vol] 100 mmol/L Low 101-[address] [facility] Comment on above: Performed By: #### 2 [id number] #### [facility] [address] [place] [address] CO2 [Moles/Vol] 27 mmol/L Normal 21-31 [facility] Comment on above: Performed By: #### 2 [id number] #### [facility] [address] [place] [address] Creatinine [Mass/Vol] 1.2 mg/dL Normal 0.5-1.3 [facility] Comment on above: Performed By: #### 2 [id number] #### [facility] [address] [place] [address] Glucose [Mass/Vol] 97 mg/dL Normal 55-[address] [facility] Comment on above: Performed By: #### 2 [id number] #### [facility] [address] [place] [address] Potassium [Moles/Vol] 4.7 mmol/L Normal 3.5-5.3 [facility] Comment on above: Performed By: #### 2 [id number] #### [facility] [address] [place] [address] Sodium [Moles/Vol] 134 mmol/L Low 135-[address] [facility] Comment on above: Performed By: #### 2 [id number] #### [facility] [address] [place] [address] Urea nitrogen [Mass/Vol] 16 mg/dL Normal 5-[address] [facility] Comment on above: Performed By: #### 2 [id number] #### [facility] [address] [place] [address] Urea nitrogen/Creatinine [Mass ratio] 13 No Units Normal 10-[address] [facility] Comment on above: Performed By: #### 2 [id number] #### [facility] [address] [place] [address] CBC w/ Auto Diffon 5 Basophils/100 WBC (Bld) 0.5 % Normal 0.0-2.[address] [facility] Comment on above: Performed By: #### 2 [id number] #### [facility] [address] [place] [address] Basophils/Leukocytes Auto (Bld) [Pure # fraction] 0.0 E9/L Normal 0.0-0.[address] [facility] Comment on above: Performed By: #### 2 [id number] #### [facility] [address] [place] [address] Eosinophils (Bld) [#/Vol] 0.1 E9/L Normal 0.0-0.[address] [facility] Comment on above: Performed By: #### 2 [id number] #### [facility] [address] [place] [address] Eosinophils/100 WBC (Bld) 0.9 % Normal 0.0-8.[address] [facility] Comment on above: Performed By: #### 2 [id number] #### [facility] [address] [place] [address] Erythrocyte distribution width (RBC) [Ratio] 13.3 % Normal 10.9-14.[address] [facility] Comment on above: Performed By: #### 2 [id number] #### [facility] [address] [place] [address] Hematocrit (Bld) [Volume fraction] 40.5 % Normal 37.7-49.[address] [facility] Comment on above: Performed By: #### 2 [id number] #### [facility] [address] [place] [address] Hemoglobin (Bld) [Mass/Vol] 13.9 g/dL Normal 13.5-17.[address] [facility] Comment on above: Performed By: #### 2 [id number] #### [facility] [address] [place] [address] Lymphocytes (Bld) [#/Vol] 0.9 E9/L Low 1.0-4.[address] [facility] Comment on above: Performed By: #### 2 [id number] #### [facility] [address] [place] [address] Lymphocytes/100 WBC (Bld) 10.1 % Low 14.0-50.[address] [facility] Comment on above: Performed By: #### 2 [id number] #### [facility] [address] [place] [address] MCH (RBC) [Entitic mass] 31.4 pg Normal 27.0-34.[address] [facility] Comment on above: Performed By: #### 2 [id number] #### [facility] [address] [place] [address] MCHC (RBC) [Mass/Vol] 34.3 g/dL Normal 31.4-36.0 [facility] Comment on above: Performed By: #### 2 [id number] #### [facility] [address] [place] [address] MCV (RBC) [Entitic vol] 91.5 fL Normal 80.0-100.[address] [facility] Comment on above: Performed By: #### 2 [id number] #### [facility] [address] [place] [address] Monocytes (Bld) [#/Vol] 0.9 E9/L Normal 0.2-1.[address] [facility] Comment on above: Performed By: #### 2 [id number] #### [facility] [address] [place] [address] Neutrophils (Bld) [#/Vol] 7.0 E9/L Normal 2.0-7.[address] [facility] Comment on above: Performed By: #### 2 [id number] #### [facility] [address] [place] [address] Neutrophils/100 WBC (Bld) 78.2 % High 36.0-75.[address] [facility] Comment on above: Performed By: #### 2 [id number] #### [facility] [address] [place] [address] Platelet mean volume (Bld) [Entitic vol] 9.1 fL Normal 6.4-10.[address] [facility] Comment on above: Performed By: #### 2 [id number] #### [facility] [address] [place] [address] Platelets (Bld) [#/Vol] 334.0 E9/L Normal 150.0-500.[address] [facility] Comment on above: Performed By: #### 2 [id number] #### [facility] [address] [place] [address] RBC (Bld) [#/Vol] 4.4 E12/L Normal 4.3-5.[address] [facility] Comment on above: Performed By: #### 2 [id number] #### [facility] [address] [place] [address] WBC corrected for nucl RBC Auto (Bld) [#/Vol] 9.0 E9/L Normal 4.0-11.[address] [facility] Comment on above: Performed By: #### 2 [id number] #### [facility] [address] [place] [address] CHEMISTRYOrdered By: [employer] on 08-24-2024 Anion gap [Moles/Vol] 12 mmol/L Normal 6 - 16 mEq/L R emisol Chem Calcium [Mass/Vol] 9.1 mg/dL Normal 8.9 - 11. 1 mg/dL [facility] Chloride [Moles/Vol] 100 mmol/L Low 101 - 1 11 mmol/L [facility] CO2 [Moles/Vol] 27 mmol/L Normal 21 - 31 mmol/L [facility] Creatinine [Mass/Vol] 1.2 mg/dL Normal 0.5 - 1.3 mg/dL [facility] eGFR 64 mL/min/1.73 m2 Normal >=59mL/min /1. 73 m2 [facility] Glucose [Mass/Vol] 97 mg/dL Normal 55 - 199 mg/dL [facility] Potassium [Moles/Vol] 4.7 mmol/L Normal 3.5 - 5.3 mmol/L [facility] Sodium [Moles/Vol] 134 mmol/L Low 135 - 145 mmol/L [facility] Urea nitrogen [Mass/Vol] 16 mg/dL Normal 5 - 21 mg/dL [facility] Urea nitrogen/Creatinine [Mass ratio] 13 mg/mg Normal 10 - [address] LOWER EXTREMITY W/O CONTR AST RIGHTon 08-24-2024 Radiology Study observation (narrative) [facility] HEMATOLOGYOrdered By: SYSTEM SYSTEM on 08-24-2024 Basophils/100 WBC (Bld) 0.5 % Normal 0.0 - 2.0 % [facility] Basophils/Leukocytes Auto (Bld) [Pure # fraction] 0.0 E9/L Normal 0.0 - 0.2 E9/L [facility] Eosinophils (Bld) [#/Vol] 0.1 E9/L Normal 0.0 - 0.5 E9/L [facility] Eosinophils/100 WBC (Bld) 0.9 % Normal 0.0 - 8.0 % [facility] Erythrocyte distribution width (RBC) [Ratio] 13.3 % Normal 10.9 - 14.2 % [facility] Hematocrit (Bld) [Volume fraction] 40.5 % Normal 37.7 - 49.0 % [facility] Hemoglobin (Bld) [Mass/Vol] 13.9 g/dL Normal 13.5 - 17.5 gm/dL [facility] Lymphocytes (Bld) [#/Vol] 0.9 E9/L Low 1.0 - 4.0 E9/L [facility] Lymphocytes/100 WBC (Bld) 10.1 % Low 14.0 - 50.0 % [facility] MCH (RBC) [Entitic mass] 31.4 pg Normal 27.0 - 34.0 pg [facility] MCHC (RBC) [Mass/Vol] 34.3 g/dL Normal 31.4 - 36.0 gm/dL [facility] MCV (RBC) [Entitic vol] 91.5 fL Normal 80.0 - 100.0 fL [facility] Monocytes (Bld) [#/Vol] 0.9 E9/L Normal 0.2 - 1.0 E9/L [facility] Monocytes/100 WBC (Bld) 10.3 % Normal 4.0 - 14.0 % [facility] Neutrophils (Bld) [#/Vol] 7.0 E9/L Normal 2.0 - 7.5 E9/L [facility] Neutrophils/100 WBC (Bld) 78.2 % High 36.0 - 75.0 % [facility] Platelet mean volume (Bld) [Entitic vol] 9.1 fL Normal 6.4 - 10.8 fL [facility] Platelets (Bld) [#/Vol] 334.0 E9/L Normal 150.0 - 500.0 E9/L [facility] RBC (Bld) [#/Vol] 4.4 E12/L Normal 4.3 - 5.9 E12/L [facility] WBC corrected for nucl RBC Auto (Bld) [#/Vol] 9.0 E9/L Normal 4.0 - 11.0 E9/L [facility] UA WITH CULT RFLXon 08-24-19 25 BACTERIA:PRTHR:PT:URI NE:ORD:AUTOMATED Trace Trace /HPF [facility] BILIRUBIN:PRTHR:PT:UR INE:ORD:TEST STRIP.AUTOMATED Negative Negative mg/dL [facility] EPITHELIAL CELLS.SQUAMOUS:NARIC: PT:URINE SED:QN:AUTOMATED COUNT 0-2 CD:[id number] [facility] CLARITY:TYPE:PT:URINE :NOM: Clear Clear [facility] CLASS:TYPE:PT:URINE COLLECTION METHOD:NOM:* Clean Catch [facility] COLOR:TYPE:PT:URINE:N OM:AUTO Yellow Yellow [facility] Comment on above: Microscopic readings are only performed on those samples that meet specific criteria set forth by [facility]. [facility] PH:LSCNC:PT:URINE:QN: TEST STRIP 6.0 5.0 - 9.0 [facility] SPECIFIC GRAVITY:RDEN:PT:URINE :QN:TEST STRIP 1.014 1.005 - 1.030 [facility] GLUCOSE:PRTHR:PT:URIN E:ORD:TEST STRIP Negative Negative mg/dL [facility] HEMOGLOBIN:MCNC:PT:UR INE:SEMIQN:TEST STRIP.AUTOMATED Negative Negative mg/dL [facility] HYALINE CASTS:PRTHR:PT:URINE SED:ORD:MICROSCOPY.LI GHT 0-3 [facility] Interpretation and review of laboratory results Abnormal [facility] KETONES:PRTHR:PT:URIN E:ORD:TEST STRIP.AUTOMATED Negative Negative mg/dL [facility] LEUKOCYTE ESTERASE:PRTHR:PT:URI NE:ORD:TEST STRIP.AUTOMATED 25 Briseyda/uL Negative CD:[id number] [facility] LEUKOCYTES:NARIC:PT:U RINE SED:QN:AUTOMATED COUNT 6-15 Abnormal [facility] MUCUS:PRTHR:PT:URINE: ORD:AUTOMATED Negative Negative CD:[id number] [facility] NITRITE:PRTHR:PT:URIN E:ORD:TEST STRIP.AUTOMATED Negative Negative mg/dL [facility] PROTEIN:PRTHR:PT:URIN E:ORD:TEST STRIP Trace Abnormal Negative mg/dL [facility] UROBILINOGEN:MCNC:PT: URINE:SEMIQN:TEST STRIP 2 mg/dL Abnormal Negative mg/dL [facility] Original Ordering Provider: DO Angus Darnell [facility] with Cult Rflxon 08-24-19 25 Bacteria Auto Ql (U) Trace Normal Trace [facility] Comment on above: Performed By: #### 4 [id number] #### [facility] [address] [place] [address] Bilirubin Ql (U) Negative Normal Negative [facility] Comment on above: Performed By: #### 4 [id number] #### [facility] [address] [place] [address] Clarity (U) Clear Normal Clear [facility] Comment on above: Performed By: #### 4 [id number] #### [facility] [address] [place] [address] Color (U) Yellow Normal Yellow [facility] Comment on above: Result Comment: Micr oscopic readings are only performed on those samples that meet specific criteria set forth by [facility]. Performed By: #### 4 [id number] #### [facility] [address] [place] [address] Epithelial cells.squamous Auto (Urine sed) [#/Area] 0-2 Invalid Interpretation Code [facility] Comment on above: Performed By: #### 4 [id number] #### [facility] [address] [place] [address] Glucose Ql (U) Negative Normal Negative [facility] Comment on above: Performed By: #### 4 [id number] #### [facility] [address] [place] [address] Hemoglobin Auto test strip (U) [Mass/Vol] Negative Normal Negative [facility] Comment on above: Performed By: #### 4 [id number] #### [facility] [address] [place] [address] Hyaline casts LM Ql (Urine sed) 0-3 Normal 0-[address] [facility] Comment on above: Performed By: #### 4 [id number] #### [facility] [address] [place] [address] Ketones Auto test strip Ql (U) Negative Normal Negative [facility] Comment on above: Performed By: #### 4 [id number] #### [facility] [address] [place] [address] Leukocyte esterase Auto test strip Ql (U) 25 Briseyda/uL Normal Negative [facility] Comment on above: Performed By: #### 4 [id number] #### [facility] [address] [place] [address] Mucus Auto Ql (U) Negative Normal Negative [facility] Comment on above: Performed By: #### 4 [id number] #### [facility] [address] [place] [address] Nitrite Auto test strip Ql (U) Negative Normal Negative [facility] Comment on above: Performed By: #### 4 [id number] #### [facility] [address] [place] [address] pH (U) 6.0 [pH] Invalid Interpretation Code 5.0-9.[address] [facility] Comment on above: Performed By: #### 4 [id number] #### [facility] [address] [place] [address] Protein Ql (U) Trace Abnormal Negative [facility] Comment on above: Performed By: #### 4 [id number] #### [facility] [address] [place] [address] Specific gravity (U) [Rel density] 1.014 Invalid Interpretation Code 1.005-1.[address] [facility] Comment on above: Performed By: #### 4 [id number] #### [facility] [address] [place] [address] Urobilinogen (U) [Mass/Vol] 2 mg/dL Abnormal Negative [facility] Comment on above: Performed By: #### 4 [id number] #### [facility] [address] [place] [address] WBC Auto (Urine sed) [#/Area] 6-15 Abnormal 0-[address] [facility] Comment on above: Performed By: #### 4 [id number] #### [facility] [address] [place] [address] Type of Urine collection method Clean Catch Normal [facility] Comment on above: Performed By: #### 4 [id number] #### [facility] [address] [place] [address] URINALYSISOrdered By: SYSTEM SYSTEM on 08-24-2024 Bacteria Auto Ql (U) Trace /HPF Normal Trace/HPF [facility] UA Auto SS Bilirubin Ql (U) Negative Normal Negativemg/dL [facility] UA Auto SS Clarity (U) Clear (08/24/24 12:45 PM) Normal Clear [facility] UA Auto SS Color (U) Yellow 1 (08/24/24 12:45 PM) Normal Yellow [facility] UA Auto SS Comment on above: Interpretive Data: M icroscopic readings are only performed on those samples that meet specific criteria set forth by [facility]. Epithelial cells.squamous Auto (Urine sed) [#/Area] 0-2 graded/HPF Invalid Interpretation Code [facility] UA Auto SS Glucose Ql (U) Negative Normal Negativemg/dL [facility] UA Auto SS Hemoglobin Auto test strip (U) [Mass/Vol] Negative Normal Negativemg/dL [facility] UA Aut o SS Hyaline casts LM Ql (Urine sed) 0-3 graded/LPF Normal 0-3graded/LPF [facility] UA Auto SS Ketones Auto test strip Ql (U) Negative Normal Negativemg/dL [facility] UA Auto SS Leukocyte esterase Auto test strip Ql (U) 25 Briseyda/uL Briseyda/uL Normal NegativeLeu/u L [facility] UA Auto SS Mucus Auto Ql (U) Negative Normal Negativegr abdelrahman d/LPF [facility] UA Auto SS Nitrite Auto test strip Ql (U) Negative Normal Negativemg/dL [facility] U[facility] Auto SS pH (U) 6.0 *NA* (08/24/24 12:45 PM) Invalid Interpretation Code 5.0 - 9.0 [facility] UA Auto SS Protein Ql (U) Trace mg/dL Invalid Interpretation Code Negativemg/dL [facility] UA Auto SS Specific gravity (U) [Rel density] 1.014 *NA* (08/24/24 12:45 PM) Invalid Interpretation Code 1.005 - 1.030 [facility] UA Auto SS Urobilinogen (U) [Mass/Vol] 2 mg/dL Invalid Interpretation Code Negativemg/dL [facility] UA Auto SS WBC Auto (Urine sed) [#/Area] 6-15 graded/HPF Invalid Interpretation Code 0-5graded/HPF [facility] UA Auto SS URINALYSISOrdered By: Anastacia Garsia on 08-24-2024 UA Spec Desc Clean Catch (08/24/24 12:45 PM) Normal [facility] UA Auto SS eGFRon 08-24-2024 eGFR 64 mL/min/1.73 m2 Normal >=[address] [facility] Comment on above: Performed By: #### 1 [id number] #### [facility] [address] [place] [address] No Panel Informationon 05-25 Rowan Bojorquez MA 05/25/2024 4:18 PM L Inj/Asp: L knee on 05/25/2024 4:13 PM Indications: pain Details: 25 G needle, anterolateral approach Medications: 12 mg betamethasone acetate-betamethaso ne sodium phosphate 6 (3-3) MG/ML Procedure, treatment alternatives, risks and benefits explained, specific risks discussed. Consent was given by the patient. Immediately prior to procedure a time out was called to verify the correct patient, procedure, equipment, server support technician and site/side marked as required. Patient was prepped and draped in the usual sterile fashion. [facility] [employer] [facility] [employer] XR Knee - left 1 or 2 [...] subluxation of the right patella is noted [facility] [employer] Radiology Study observation (narrative) [facility] CT LUNG CANCER SCREENINGon 0 7-17-2022 CT LUNG CANCER SCREENING EXAMINATION: CT LUNG [...] by: SIMRAN MATIAS Date: 2022-01-14 09:21 Normal [facility] CHEMISTRYOrdered By: SYSTEM SYSTEM on 01-03-2022 Anion [...] rate/Area] mL/min/1.73 m2 Normal >=59mL/min/1. 73 m2 [facility] Chem S GFR/1.73 sq M.predicted among non-blacks MDRD (S/P/Bld) [Vol rate/Area] 55 mL/min/1.73 m2 Low >=59mL/min/1. 73 m2 [facility] S Glucose [Mass/Vol] 102 mg/dL Normal 55 - 199 mg/dL [facility] Remisol Potassium [Moles/Vol] 4.6 mmol/L Normal 3.5 - 5.3 mmol/L [facility] Remisol Prostate specific Ag [Mass/Vol] 2.0 ng/mL Normal 0.1 - 3.5 ng/mL [facility] Sodium [Moles/Vol] 138 mmol/L Normal 135 - 145 mmol/L [facility] Urea nitrogen [Mass/Vol] 22 mg/dL High 5 - 21 mg/dL [facility] Urea nitrogen/Creatinine [Mass ratio] 17 mg/mg Normal 10 - 20 [facility] HEMATOLOGYOrdered By: SYSTEM SYSTEM on 01-03-2022 Basophils/100 WBC (Bld) 0.5 % Normal 0.0 - 2.0 % [facility] HemeAutoSS Basophils/Leukocytes Auto (Bld) [Pure # fraction] 0.0 E9/L Normal 0.0 - 0.2 E9/L [facility] HemeAutoSS Eosinophils/100 WBC (Bld) 3.1 % Normal 0.0 - 8.0 % [facility] HemeAutoSS Eosinophils/Leukocyte s Auto (Bld) [Pure # fraction] 0.2 E9/L Normal 0.0 - 0.5 E9/L [facility] HemeAutoSS Lymphocytes/100 WBC (Bld) 19.8 % Normal 14.0 - 50.0 % [facility] HemeAutoSS Lymphocytes/Leukocyte s Auto (Bld) [Pure # fraction] 1.2 E9/L Normal 1.0 - 4.0 E9/L [facility] HemeAutoSS Monocytes/100 WBC (Bld) 13.6 % Normal 4.0 - 14.0 % [facility] HemeAutoSS Monocytes/Leukocytes Auto (Bld) [Pure # fraction] 0.8 E9/L Normal 0.2 - 1.0 E9/L [facility] HemeAutoSS Neutrophils/100 WBC (Bld) 63.0 % Normal 36.0 - 75.0 % [facility] HemeAutoSS Neutrophils/Leukocyte s Auto (Bld) [Pure # fraction] 3.8 E9/L [...] Normal 4.0 - 11.0 E9/L [facility] HemeAutoSS CT CERVICAL SPINE WO CONTRAS Ton 08-01-2020 [...] fall TECHNOLOGIST PROVIDED HISTORY: fall Decision Support Exception->Emergenc y Medical Condition (MA) Reason for Exam: fall [...] Chino Mcqueen MD 08/01/20 Final result Normal [facility] No acute abnormality of the cervical spine. Multilevel degenerative changes. [place], [place] [employer], [employer] Incoming Radiant Results From [employer] - 08/01/2020 1:22 PM EST EXAMINATION: CT [...] fall TECHNOLOGIST PROVIDED HISTORY: fall Decision Support Exception->Emergenc y Medical Condition (MA) Reason for Exam: fall FINDINGS: BONES/ALIGNMENT: There is no acute fracture or traumatic malalignment. DEGENERATIVE CHANGES: Multilevel degenerative disc disease and facet osteoarthritis. Degenerative disc disease is most significant (severe) at C5-6 and to a lesser extent C4-5 and C3-4. SOFT TISSUES: There is no prevertebral soft tissue swelling. IMPRESSION: No acute abnormality of the cervical spine. Multilevel degenerative changes. [place] EXAMINATION: CT OF THE CERVICAL SPINE [...] fall TECHNOLOGIST PROVIDED HISTORY: fall Decision Support Exception->Emergenc y Medical Condition (MA) Reason for Exam: fall FINDINGS: BONES/ALIGNMENT: There is no acute fracture or traumatic malalignment. DEGENERATIVE CHANGES: Multilevel degenerative disc disease and facet osteoarthritis. Degenerative disc disease is most significant (severe) at C5-6 and to a lesser extent C4-5 and C3-4. SOFT TISSUES: There is no prevertebral soft tissue swelling. [facility], [place] CT HEAD WO CONTRASTon 2020 CT HEAD [...] fall TECHNOLOGIST PROVIDED HISTORY: fall Decision Support Exception->Emergenc y Medical Condition (MA) Reason for Exam: fall [...] Randolph Roman MD 08/01/20 Final result Normal [facility] [employer], [employer] Incoming Radiant Results From [facility] [employer] - 08/01/2020 1:20 PM EST EXAMINATION: CT [...] fall TECHNOLOGIST PROVIDED HISTORY: fall Decision Support Exception->Emergenc y Medical Condition (MA) Reason for Exam: fall [...] fossa. 2. No convincing acute intracranial abnormality. [place], [place] EXAMINATION: CT OF THE HEAD WITHOUT CONTRAST 08/01/2020 1:09 pm TECHNIQUE: CT of the head was performed without the administration of intravenous contrast. Dose modulation, iterative reconstruction, and/or weight based adjustment of the mA/kV was utilized to reduce the radiation dose to as low as reasonably achievable. COMPARISON: None. HISTORY: ORDERING SYSTEM PROVIDED HISTORY: fall TECHNOLOGIST PROVIDED HISTORY: fall Decision Support Exception->Emergenc y Medical Condition (MA) Reason for Exam: fall [...] of the visualized skull or soft tissues. [place] 1. Streak artifact from dental amalgam limits evaluation of the posterior fossa. 2. No convincing acute intracranial abnormality. [place] CT THORACIC SPINE WO CONTRAS Ton [...] Panfilo Middleton MD 08/01/20 Final result Normal [facility] [employer], [employer] Incoming Radiant Results From [facility] [employer] - 08/01/2020 1:29 PM EST EXAMINATION: CT [...] fracture or malalignment of the thoracic spine. [facility], [place] EXAMINATION: CT OF THE THORACIC [...] SOFT TISSUES: No paraspinal mass is seen. [place] No acute fracture or malalignment of the thoracic spine. [place] XR ELBOW LEFT (MIN 3 VIEWS)o [...] Randolph Roman MD 08/01/20 Final result Normal [facility] [employer], [employer] Incoming Radiant Results From [facility] [employer] - 08/01/2020 1:11 PM EST EXAMINATION: THREE [...] the left elbow. 2. Minimal degenerative changes. [place] EXAMINATION: THREE XRAY VIEWS OF THE [...] The soft tissues demonstrate no acute abnormality. [place] 1. No acute osseous abnormality identified of the left elbow. 2. Minimal degenerative changes. [place] Vital Signs Date Time Vital Sign Value Performing Clinician Facility 08-24-2024 12:42-0500 Diastolic blood pressure 80 mm[Hg] Angus Darnell [facility] 08-24-2024 12:42-0500 Heart rate 76 /min Angus Darnell [facility] 08-24-2024 12:42-0500 Mean blood pressure 103 mm[Hg] Angus Darnell [facility] 08-24-2024 12:42-0500 Systolic blood pressure 149 mm[Hg] Angus Darnell [facility] 08-24-2024 12:41-0500 Heart rate 60 /min Angus Darnell [facility] 08-24-2024 12:41-0500 SaO2% (BldA) [Mass fraction] 99 % Angus Darnell [facility] 08-24-2024 12:41-0500 Body temperature 98.24 [degF] Angus Darnell [facility] 08-24-2024 12:41-0500 Blood Pressure Location Angus Darnell [facility] 08-24-2024 12:41-0500 Diastolic blood pressure 70 mm[Hg] Angus Darnell [facility] 08-24-2024 12:41-0500 Mean blood pressure 97 mm[Hg] Angus Darnell [facility] 08-24-2024 12:41-0500 Systolic blood pressure 151 mm[Hg] Angus Darnell [facility] 08-24-2024 12:40-0500 Respiratory rate 16 /min Angus Darnell [facility] 08-06-2024 10:10-0500 Body height 180.3 cm Angus Darnell DO Work Phone: [facility] 08-06-2024 10:10-0500 Body mass index (BMI) [Ratio] 26.78 kg/m2 Angus Mann KARIMI Work Phone: [facility] 08-06-2024 10:10-0500 Body temperature 97.5 [degF] Angus Darnell DO Work Phone: [facility] 08-06-2024 10:10-0500 Body weight 87.09 kg Angus Darnell DO Work Phone: [facility] 05-25-2024 15:41-0500 Body height 181.6 cm [facility] Work Phone: [facility] 05-25-2024 15:41-0500 Body mass index (BMI) [Ratio] 26.41 kg/m2 [facility] Work Phone: [facility] 05-25-2024 15:41-0500 Body weight 87.09 kg [facility] Work Phone: [facility] 01-30-2024 10:58-0400 Body height 185.42 cm [facility] 01-30-2024 10:58-0400 Body mass index (BMI) [Ratio] 24.6 kg/m2 [facility] 01-30-2024 10:58-0400 Body weight 84.82 kg [facility] 01-30-2024 10:58-0400 Diastolic blood pressure 68 mm[Hg] [facility] 01-30-2024 10:58-0400 Heart rate 57 /min [facility] 01-30-2024 10:58-0400 Systolic blood pressure 149 mm[Hg] [facility] 09-19-2023 08:30-0400 Body height 185.42 cm [facility] 09-19-2023 08:30-0400 Body mass index (BMI) [Ratio] 25.6 kg/m2 [facility] 09-19-2023 08:30-0400 Body weight 87.99 kg [facility] 09-19-2023 08:30-0400 Diastolic blood pressure 72 mm[Hg] [facility] 09-19-2023 08:30-0400 Heart rate 57 /min [facility] 09-19-2023 08:30-0400 Systolic blood pressure 162 mm[Hg] [facility] 06-06-2023 10:15-0500 Body height 185.42 cm Adriana Mejia Other [employer] Other 06-06-2023 10:15-0500 Body mass index (BMI) [Ratio] 25.54 kg/m2 Adriana Mejia Other [employer] Other 06-06-2023 10:15-0500 Body weight 87.82 kg Adriana Mejia Other [employer] Other 06-06-2023 10:15-0500 Diastolic blood pressure 70 mm[Hg] Adriana Mejia Other [employer] Other 06-06-2023 10:15-0500 Systolic blood pressure 159 mm[Hg] Adriana Mejia Other [employer] Other 04-19-2023 09:30-0400 Body height 185.42 cm Adriana Mejia Other [employer] Other 04-19-2023 09:30-0400 Body mass index (BMI) [Ratio] 24.7 kg/m2 Adriana Mejia Other [employer] Other 04-19-2023 09:30-0400 Body weight 84.91 kg Adriana Mejia Other [employer] Other 04-19-2023 09:30-0400 Diastolic blood pressure 77 mm[Hg] Adriana Mejia Other [employer] Other 04-19-2023 09:30-0400 Systolic blood pressure 159 mm[Hg] Adriana Mejia Other [employer] Other 01-06-2022 07:59-0400 Body temperature 97.7 [degF] Kirill Simon [facility] 01-06-2022 07:59-0400 Diastolic blood pressure 88 mm[Hg] Kirill Simon [facility] 01-06-2022 07:59-0400 Heart rate 60 /min Kirill Alfred [facility] 01-06-2022 07:59-0400 Respiratory rate 15 /min Kirilldorinda Simon [facility] 01-06-2022 07:59-0400 SaO2% (BldA) [Mass fraction] 98 % Kirill Alfred [facility] 01-06-2022 07:59-0400 Systolic blood pressure 202 mm[Hg] Kirill Simon [facility] 08-01-2020 13:03-0500 Body Temperature 97.59 [degF] [place], [place] 08-01-2020 12:35-0500 BP Diastolic 73 mm[Hg] [place], [place] 08-01-2020 12:35-0500 BP Systolic 149 mm[Hg] [place] 08-01-2020 12:35-0500 Pulse (Heart Rate) 76 /min [place] 08-01-2020 12:35-0500 Pulse Oximetry 99 % [place] 08-01-2020 12:35-0500 Respiratory Rate 18 /min [place], [place] Encounters Encounter Date Encounter Type Care Provider Facility Start: 08-24-2024 End: 08-26-2024 Clinisync Result Encounter Angus Darnell DO Work Phone: [facility] Unsolicited Start: 08-24-2024 End: 08-26-2024 Clinisync Result Encounter Angus Darnell DO Work Phone: [facility] Unsolicited Start: 08-24-2024 End: 08-24-2024 ambulatory DO Angus Darnell Facility:[facility] Start: 08-24-2024 End: 08-24-2024 Patient encounter procedure Angus Darnell [facility] Start: 08-06-2024 End: 08-06-2024 Bamboo flowsheet Angus A Mann DO Work Phone: [facility] Start: 08-06-2024 End: 08-06-2024 Bamboo flowsheet Angus Giuliano Mann DO Work Phone: [facility] Start: 08-06-2024 End: 08-06-2024 Patient encounter procedure Angus Giuliano Mann DO Work Phone: [facility] Comment on above: Osteoarthritis of pa tellofemoral joints of both knees Start: 08-06-2024 End: 08-06-2024 ambulatory ANGUS DARNELL Not Available Start: 07-13-2024 End: 07-13-2024 ambulatory Brett Mantilla MD Facility:[facility] Start: 05-25-2024 End: 05-25-2024 Patient encounter procedure Barbara Bland PA Work Phone: [facility] Comment on above: 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); Acute pain of left knee; Osteoarthritis of patellofemoral joints of both knees Start: 05-25-2024 End: 05-25-2024 ambulatory BARBARA BLAND Not Available Start: 05-25-2024 End: 05-25-2024 ambulatory BARBARA BLAND Not Available Start: 01-30-2024 End: 01-30-2024 ambulatory [facility] Work Phone: Start: 01-30-2024 End: 01-30-2024 Patient encounter procedure [facility] Phys[facility] Work Phone: Start: 12-02-2023 End: 12-02-2023 ambulatory Brett Mantilla MD Facility:[facility] Start: 11-11-2023 End: 11-11-2023 ambulatory Brett Mantilla MD Facility:[facility] Start: 10-28-2023 End: 10-28-2023 ambulatory Brett Mantilla MD Facility:[facility] Start: 10-14-2023 End: 10-14-2023 ambulatory Brett Mantilla MD Facility:[facility] Start: 09-19-2023 End: 09-19-2023 ambulatory [facility] Work Phone: Start: 09-19-2023 End: 09-19-2023 Patient encounter procedure [facility] Work Phone: Start: 06-06-2023 End: 06-06-2023 ambulatory Adriana Mejia Other [employer] Other Start: 06-06-2023 Office outpatient vi sit 15 minutes Adriana Mejia [facility] Start: 04-25-2023 End: 04-25-2023 ambulatory Adriana Mejia Other [employer] Other Start: 04-25-2023 Telephone encounter Adriana Mejia [facility] Start: 04-19-2023 End: 04-19-2023 ambulatory Adriana Mejia Other [employer] Other Start: 04-19-2023 Patient encounter procedure Adriana Mejia [facility] Start: 01-13-2022 End: 01-14-[address] ADRIANA MEJIA Facility:[facility] Start: 01-06-2022 End: 01-06-2022 Emergency department patient visit Kirill Simon [facility] Start: 01-06-2022 End: 01-06-[address] LENA MARIE Facility:[facility] Start: 01-03-2022 End: 01-03-2022 Patient encounter procedure ADRIANA MEJIA [facility] Start: 10-09-2021 End: 10-09-2021 Patient encounter procedure Averybell Ramirez Kirk [facility] Start: 08-01-2020 End: 08-01-2020 Emergency department patient visit TOMI ESTRELLA [facility] Start: 08-01-2020 End: 08-01-2020 Emergency department patient visit Tomi Estrella Work Phone: [facility] ED Comment on above: Closed head injury, initial encounter (Primary Dx) Procedures Date Procedure Procedure Detail Performing Clinician Start: 08-24-2024 CT LOWER EXTREMITY W /O CONTRAST RIGHT Angus Darnell DO Work Phone: Start: 08-24-2024 UA WITH CULT RFLX Angus Darnell DO Work Phone: Start: 05-25-2024 Arthrocentesis aspir &/inj major jt/bursa [...] George Alcala Work Phone: broke leg [facility]ia repair Angus Darnell Plan of Treatment Date Care Activity Detail Author Start: 12-04-2029 DTaP/Tdap/Td vaccine (2 - Td) DTaP/Tdap/Td vaccine (2 - Td) [place] Start: 09-24-2024 End: 09-24-2024 Patient encounter procedure 09/24/2024 9:00 AM EDT Office Visit [facility] [address] [place] [id number] Angus Darnell DO [address] [place] [address] [facility] Start: 08-24-2024 End: 08-24-2025 Urinalysis complete panel - Urine Urinalysis with reflex microscopic Lab Routine Osteoarthritis of patellofemoral joints of both knees Expected: 08/24/2024 (Approximate), Expires: 08/24/2025 [facility] Work Phone: Comment on above: Expected: 08/24/2024 (Approximate), Expires: 08/24/2025 Start: 08-06-2024 End: 08-06-2024 Patient encounter procedure 08/06/2024 10:30 AM EST Office Visit [facility] [address] [place] [phone] Angus Darnell DO [address] [place], [place] [id number] Arrived [facility] Comment on above: Arrived Start: 03-01-2024 Influenza vaccination Influenza Vacc ine (#1) [facility] Start: 04-27-2020 Pneumococcal Vaccine : 65+ Years (2 of 2 - PPSV23 or PCV20) Pneumococcal Vaccine: 65+ Years (2 of 2 - PPSV23 or PCV20) [facility] Start: 03-01-2020 Influenza vaccination Flu vaccine (# 1) [place] Start: 2018 Pneumococcal 65+ yea rs Vaccine (1 of 1 - PPSV23) Pneumococcal 65+ years Vaccine (1 of 1 - PPSV23) [place] Start: 2018 Pneumococcal Vaccine : 65+ Years (1 of 1 - PCV) Pneumococcal Vaccine: 65+ Years (1 of 1 - PCV) [facility] Start: 2003 Screening for malign ant neoplasm of colon Colon cancer screen colonoscopy [place], [place] Start: 2003 Shingles Vaccine (1 of 2) Shingles Vaccine (1 of 2) [place] Start: 1993 Lipid panel Lipid screen [place], [place] Start: 1953 Abdominal aortic aneurysm screening AAA screen [place], [place] Start: 1955 Hepatitis C screening Hepatitis C sc reen [place], [place] Start: 1955 Screening for malign ant neoplasm of colon [facility] XR Lumbar spine 2 or 3 Views [facility] Immunizations Immunization Date Immunization Notes Care Provider Fa cili 04-19-2023 influenza virus vaccine, unspecified formulation [facility] 04-19-2023 influenza, high dose seasonal, preservative-free Adriana Mejia Other [employer] Other 09-30-2020 COVID-19, mRNA, LNP- S, PF, 30 mcg/0.3 mL dose; Translations: [Pfizer-BioNTech COVID-19 [facility]ine[facility] Comment on above: Reason for Medicatio n: Prophylaxis 09-09-2020 COVID-19, mRNA, LNP- S, PF, 30 mcg/0.3 mL dose; Translations: [Pfizer-BioNTech COVID-19 Vaccine] [facility] Comment on above: Reason for Medicatio n: Prophylaxis 12-05-2019 tetanus toxoid, reduced diphtheria toxoid, and acellular pertussis vaccine, adsorbed; Translations: [Adacel (Tdap)] [facility] 04-27-2019 influenza virus vaccine, split virus (incl. purified surface antigen) Adriana Mejia Other [employer] Other 04-27-2019 influenza virus vaccine, unspecified formulation [facility] 04-27-2019 pneumococcal conjuga te vaccine, 13 valent Adriana Mejia Other [facility] 07-08-2017 diphtheria, tetanus toxoids and acellular pertussis vaccine, unspecified formulation Adriana Jackie Other [facility] 02-05-2017 influenza virus vaccine, unspecified formulation Angus Mann DO Work Phone: [facility] Payers Date Payer Category Payer Private Health Insurance A[employer] [id number] 2023 Unknown 2018 Medicare [id number] 1959 Medicare [id number] 1959 Private Health Insurance [id number] 1953 Unknown [id number] [id number] .175 1953 Unknown [id number] [id number] .593 1953 Unknown [id number] [id number] .593 1953 Unknown [id number] [id number] .196 1953 Unknown [id number] [id number] .196 1953 Unknown [id number] [id number] .196 1953 Unknown [id number] [id number] .196 1953 Unknown [id number] [id number] .196 1953 Unknown [id number] [id number] .1259 1953 Unknown [id number] [id number] .9 1953 Unknown [id number] [id number] .9 1953 Unknown [id number] Social History Date Type Detail Facility Start: 08-01-2020 End: 05-25-2024 Tobacco smoking status NHIS Current every day smoker [place] History of tobacco use Cigarette Smoker [place] Start: 08-01-2020 End: 05-25-2024 Tobacco use and exposure Never used [place] Start: 08-01-2020 End: 08-06-2024 Alcohol intake Current drinker of alcohol (finding) [place] Start: 08-01-2020 Alcohol Comment daily 3-4 beer s per day [place] Start: 1955 Sex Assigned At Not on file [place] Tobacco [facility] Comment on above: smokes 1 ppd. Start: 05-25-2024 End: 08-06-2024 Sex Assigned At Male [facility] Start: 1955 Sex Assigned At Male [facility] Start: 05-25-2024 End: 08-06-2024 History of Social function [facility] Start: 05-25-2024 Alcohol Comment Daily [facility] Tobacco smoking status No Smokin g Status Entered [facility] Functional Status Date Assessment Result Facility 08-24-2024 Functional Status No [facility] 01-06-2022 Functional Status N/A [facility] Clinical Notes 10-04-2021 to 08-06-2024 Angus Darnell DO - 08/06/2024 10:30 AM Sara Bojorquez MA - 05/25/2024 3:45 PM ESTToTE Steele - 05/25/2024 3:45 PM ESTPatient Instructions Note Date & Type Note Facility 08-06-2024 History of Presen t illness Narrative Images from the original note were not included. @ENCDATE@ Mannie Nobles Antoine is a 69 y.o. male who presents for Pain of the Left Knee HPI: History of Present Illness The patient is a 69-year-old male who presents as a new patient to my practice today for his left knee. He was previously under the care of our physician assistant professor of history, Barbara Bland. He has tried meloxicam, Robaxin, and bracing. He reports experiencing discomfort in both knees, with the right knee being more problematic. The onset of these issues was gradual, developing over several years. He describes a sensation marco antonio to having a loose piece of bone in his knee. Despite being retired, he enjoys outdoor activities such as yard work, dog walking, and cycling, but feels hindered by his knee condition. He also mentions a desire to resume golfing. He has access to assistance at home if needed. The pain is exacerbated by walking and prolonged sitting, such as during grocery shopping. He exercises caution when navigating stairs, relying on a sturdy handrail for support. He has a history of left knee sprain, for which he received an injection in 05/2024. This treatment provided temporary relief, but he is uncertain of its duration. He has not received any injections for his right knee. His right knee has caused him to fall twice, leading to the injury to the left knee. SUBJECTIVE: MEDICATIONS: Current Outpatient Medications Medication Instructions escitalopram (LEXAPRO) 10 mg, Daily lamoTRIgine (LaMICtal) 25 MG tablet 1 tablet, Nightly loratadine (Claritin) 10 MG tablet Daily losartan (COZAAR) 50 mg, Daily meloxicam (MOBIC) 15 mg, Daily methocarbamol (ROBAXIN) 750 mg, 3 times daily PRN ALLERGIES: No Known Allergies SURGICAL HISTORY: Past Surgical History: Procedure Laterality Date ANKLE SURGERY Left FAMILY HISTORY: No family history on file. SOCIAL HISTORY: Social History Tobacco Use Smoking status: Every Day Types: Cigarettes Smokeless tobacco: Never Vaping Use Vaping status: Never Used Substance Use Topics Alcohol use: Yes Comment: Daily Drug use: Never Depression: Not on file REVIEW OF SYMPTOMS: Review of Systems The review of systems, history and current medications list are all reviewed today. OBJECTIVE: Visit Vitals Temp 97.5 F Ht 5' 11 Wt 192 lb BMI 26.78 kg/m Smoking Status Every Day BSA 2.09 m Physical Exam Alert and oriented, no acute distress. Mood and affect are appropriate. Ambulating independently. Gait is nonantalgic. LEFT KNEE ROM 0-130. No effusion. No varus or valgus instability. Negative anterior and posterior drawer. RIGHT KNEE ROM 0-120. Small effusion. The medial joint line of the knee is nontender, but there is positive tenderness on the lateral joint line. Drawer testing on the knee is negative. No varus or valgus instability. HEENT The skull is normocephalic. There is no sign of trauma to the head or neck. Hearing is intact for conversational tones. Eye exam reveals conjugate gaze adequate for walking and transfers. CARDIAC The heart is regular rate and rhythm. RESPIRATORY Chest excursion is symmetric and unlabored with lungs clear. ABDOMEN Soft and non-distended. OSTEOPATHIC AND STRUCTURAL EXAM There is no gross evidence of clinically significant kyphosis, or lordosis, or significant leg length discrepancy in a sitting and standing position. Ortho Exam Results 2 views, bilateral PA weight-bearing, sunrise taken 05/25/2024 and saved to the permanent medical record are reviewed. Severe PF arthritis right knee, complete loss of joint space. Lateral subluxation of patella. Medial and lateral compartments maintained. ASSESSMENT AND PLAN: I reviewed the history, physical exam, diagnostic studies, and diagnosis with the patient. Assessment & Plan 1. Advanced degenerative osteoarthrosis, right knee Treatment options discussed include starting injections in the right knee. Given the impact on his quality of life and the risk of falls, knee replacement surgery was also discussed. The patient expressed interest in proceeding with knee replacement surgery. The procedure, including recovery time and the use of a walker post-surgery, was explained. The surgery is scheduled for 09/09/2024. If the left knee becomes more symptomatic during the recovery period, another cortisone injection may be considered. The patient would like to proceed with a right total knee arthroplasty with [employer] robotic arm assistance. The [email or web address] platform will be utilized. Surgery will be performed as an outpatient. We will utilize tranexamic acid preoperatively and intraoperatively to minimize blood loss. We will enroll the patient in [facility] to assist with perioperative care. We will obtain a CT scan of the affected knee to assist with preoperative planning and intraoperative instrumentation. The CT scan will also allow for better assessment of the arthritic changes including any potential subchondral deficiencies. I reviewed the risk, benefits, complications, alternatives, and reasonable expectations. These risks include, but are not limited to, the risks of receiving an anesthetic, the risk of infection, the risk of neurovascular injury that could result in permanent disability, the risk of deep vein thrombosis that could result in potentially fatal pulmonary embolism. Any potential complication could require further surgical intervention. The patient acknowledges these risks and electively signed the consent form. At no time were any guarantees implied or stated. We will schedule the procedure at a mutually convenient time. The surgery will be performed under spinal anesthetic with regional nerve block. I am requesting the regional nerve block to assist with intraoperative and postoperative pain control. A total of 30 to 39 minutes was spent on this patient encounter which included chart review, check in, nurse triage, history taking, physical examination, diagnostic study review, patient counseling and discussion, entering information into the patient's medical record, and coordinating patient care. Diagnoses and all orders for this visit: Osteoarthritis of patellofemoral joints of both knees - Urinalysis with reflex microscopic; Future Angus Darnell D.O. Attestation This note was created using voice recognition through [employer]. documented in this encounter [facility] 05-25-2024 History of Presen t illness Narrative [...] to verify the correct patient, procedure, equipment, server support technician and site/side marked as required. Patient was prepped and draped in the usual sterile fashion. GENERAL HISTORY AND PHYSICAL: NAME: Mannie Schultz : 1955 HISTORY OF PRESENT ILLNESS: Mannie Schultz is an 69 y.o. male is here for orthopedic evaluation here with his for increased pain in his left knee. He was seen in the ER after he had a buckling episode and fell onto his left knee. He has a lot of pain seems to be related to the patellofemoral joint. He has significant lateral subluxation of the right patella with [id number] changes and advancing arthritis with no subluxation of the left patellofemoral joint with fairly well-preserved mediolateral compartments seen on x-ray from [place] as well as weight-bearing films here in [...] knee. TE Vera documented in this encounter [facility] 05-25-2024 Instructions TE Vera - 05/25/2024 3:45 [...] support the knee. documented in this encounter [facility] 06-06-2023 Evaluation note Encounter Date Diagnosis Assessment Notes May, Removal of michelle (ICD-10 - Z48.02) Pt tolerated staple removal well. Pt denies LOC or fall without reason. He slipped in slippers on an icy patio with dog outside. Steristrips applied.. Keep area clean. [employer] Other 10-20-2023 Evaluation note* Encounter Date Diagnosis [...] to quit smoking. Agrees to LDCT at [facility] Other 07-09-2022 Evaluation + Plan noteExtracted from: Title:ED Note Author:Ramon Gauthier PA-C te:01/06/22 Otitis externa (H60.90: Unsp ecified otitis externa, unspecified ear) Orders: ciprofloxacin-dexamethasone otic, 4 drop(s), Ear-Right, BID for 7 day(s), 10 mL, Refill(s) 0 [facility]07-09-2022 Hospital Discharge instructions Patient Education 01/06/2022 [...] antibiotic even if your condition improves. Take [id number] and prescription medicines only as told by [...] 06/17/2006 Document Revised: 11/21/2018 Document Reviewed: 11/21/2018 [employer] Patient Education 2020 [employer] 01/06/2022 08:25:56 Ear Drops, Adult Ear [...] 06/11/2002 Document Revised: 05/30/2018 Document Reviewed: 06/20/2017 [employer] Patient Education 2020 [employer]. Follow Up Care 01/06/2022 07:58:43 With:Elizabeth Veliz Address: [address] [place] [address], [address] [place] [address] Business (1) When:01/09/2022 08:19:10 With:ADRIANA MEJIA Address: [address] [place] [address]- Business (1) When:01/09/2022 08:19:07 [facility]04-06-2022 Hospital Discharge instructions Follow Up Care 10/04/2021 10:34:18 With:Kirk MOREAU, MANAV Vincent, LUZ MARIA Address: [address] [place] [address] [place] [address] When:1 year [facility] No data available for this section [facility] Future Appointments Appointment Date:09/09/2024 07:30:00 AM Scheduled Provider: Location:[facility] Appointment Type:Surgery FT Diagnostic Tests Pending * Urine Culture 08/24/24 [facility] Evaluation noteNo [employer] Other Evaluation note* Diagnosis Onset Date Resolution Status Lumbar pain with radiation down both legs acute [facility] Work Phone: Evaluation noteNo assessment information available 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 documented [facility] encounter [facility] Diagnosis Osteoarthritis of patellofemoral joints of both knees documented in this encounter [facility] HealthcareHistory general Narrative - Reported* Type Description Date Medical History Depression, controlled Medical History Generalized osteoarthrosis Medical History Transient insomnia Medical History Obstructive sleep apnea Surgical History Hernia Repair Surgical History Left ankle surgery - with plate s and screws 2014 Hospitalization History SEE SURGICAL HX [employer] Other Hospital Discharge instructions No data available for this section [facility] No data available for this section [facility] Discharge Instructions * Instructions* George Alcala, DO - 08/01/2020 Thank you for visiting [facility] Emergency Department. You need to call Adriana Mejia MD to make an appointment as directed for follow up. Should you have any questions regarding your care or further treatment, please call [facility] Emergency Department at [phone]. Take any medications as prescribed, if given [...] Everywhere. * Head Injury: Closed: General Info (Romanian) documented in this encounter Assessments Diagnosis Closed [...] long and elbow pain Reason Comments Pain Reason Comments Pain Ordered Prescriptions (unrec ognized [...] and content) DATE CREATED AUTHOR 08/02/2020 [facility] DATE CREATED AUTHOR AUTHOR'S ORGANIZ ATION 01/17/2022 [facility] DATE CREATED AUTHOR AUTHOR'S ORGANIZ ATION 07/22/2024 [facility] DATE CREATED AUTHOR AUTHOR'S ORGANIZ ATION 08/08/2024 [facility] dical Specialists [facility] DATE CREATED AUTHOR AUTHOR'S ORGANIZ ATION 08/25/2024 [facility] DATE CREATED AUTHOR AUTHOR'S ORGANIZ ATION 08/26/2024 [facility] Care Team (unrecognized sect ion and content) [...] January 30, 2024 End: January 30, 2024 [employer] Relationship Specialty Start Date End Date Adriana Mejia MD [address] [place] [address] PCP - General Family Medicine 08/06/24 Rags [employer] Relationship Specialty Start Date End Date Adriana Mejia MD [address] [place] [id number] PCP - General Family Medicine 08/06/24 Goals (unrecognized section and content) Goals may [...] BE BASED ON THE PRIMARY CLINICAL RECORDS. [employer] provides no warranty or guarantee of the accuracy or completeness of information in this document.
== END 2024-08-27 09:34 | disposition home or self-care (01) ==
LOC: MRI 09:33
PROVIDERS: PCP Family Medicine; Visit Provider Nurse Practitioner
DX: M48.062 Spinal stenosis, lumbar region with neurogenic claudication (principal); M51.369 Other intervertebral disc degeneration, lumbar region without mention of lumbar back pain or lower extremity pain
CPT/HCPCS: 72148

== ENCOUNTER 2024-09-03 09:16 | Outpatient (OUT) | payer MEDICARE, SELFPAY ==
--- NOTE | 2024-09-03 09:23 | CT_ITS ---
The [address] [address] Patient Name: ROSALIO JARQUIN MRN: [id number] date: 1955 Sex: M Assigned Patient Location: CT Current Patient Location: CT Accession/Order Number: [id number] Exam Date: 09/03/2024 16:50 Report Date: 09/03/2024 16:52 At the request of: ELAINE MEJIA MD Procedure: CT chest wo con CT CHEST WITHOUT IV CONTRAST: CLINICAL HISTORY: lung nodule COMPARISON: Lung screening CT 04/23/2023 TECHNIQUE: Spiral images were obtained through the chest without IV contrast. This CT exam was performed using one or more following dose reduction techniques: Automated exposure control, adjustment of the mA and/or kV according to patient size, or use of iterative reconstruction technique. FINDINGS: Mediastinum:Vascular appears normal in caliber. Pulmonary trunk appears nondilated. No pleural effusion or lymphadenopathy. Calcified right hilar lymph nodes. The esophagus is grossly unremarkable. Lungs:Emphysematous changes with bibasilar scarring. Innumerable tree-in-bud nodules scattered throughout the lung parenchyma which has progressed since 2022. No consolidation pneumothorax or pleural effusion. Bibasilar scarring. Abd:Hepatic steatosis. Partially visualized liver cysts. Soft tissues/Bones: Osseous structures demonstrate degenerative change. CT/CT chest wo con IMPRESSION: Scattered tree-in-bud nodularity involving both lungs which has progressed since 2022. Given the emphysema findings may relate to bronchiolitis due to smoking. Atypical infectious process cannot BE excluded. CT follow-up after therapy is recommended to ensure resolution. Impression dictated by: Pietro Hernandez Jr., D.O.09/03/2024 4:52 PM Dictation Location: [place] [address] Electronically authenticated by: [id number] Y Date: 09/03/2024 16:52
--- OUTSIDE RECORDS SUMMARY | 2024-09-03 09:34 | XMS_ITS | CCD ---
Author Organization [facility] Care Team Providers Care Bus Boy Name Role Phone Adriana Mejia Primary Care Provider [phone] TOMI ESTRELLA Attending Unavailable ADRIANA MEJIA Primary Care Unavailable ADRIANA MEJIA Primary Care Physician [phone] Esther Padilla Unavailable Unavailable CYNTHIA, DR LENA Campbell Attending Unavailable MARIE, DR LENA Campbell Consulting Unavailable MEJIA, DR ADRIANA Hammond Primary Care Unavailable MARIE, DR LENA Campbell Admitting Unavailable JACKIE, DR ADRIANA Hammond Attending Unavailable MEJIA, DR ADRIANA Hammond Primary Care Unavailable MEJIA, DR ADRIANA Hammond Admitting Unavailable ZIEBCYN, DR SIMRAN Campbell Consulting Unavailable MEJIA, DR ADRIANA Hammond Consulting Unavailable Adriana Mejia Unavailable Unavailable Primary Care Provider Unavaillevar Mantilla MD, Andrius Murrayyttrung Attending Unavailable Jose Rafael MOREAU, Andrius Vlaura Attending Unavailable Jose Rafael MOREAU, Andrius Vyttrung Attending Unavailable Jose Rafael MOREAU, Andrius Vytautshruthi Attending Unavailable Jose Rafael MOREAU, Andrius Vyttrung Attending Unavailable Adriana Mejia MD Primary Care Provider [phone] ANGUS DARNELL Attending Unavailable ANGUS DARNELL Referring Unavailable BARBARA BLAND Referring Unavailable BARBARA BLAND Attending Unavailable BARBARA BLAND Referring Unavailable DO Angus Darnell A Admitting Unavailable DO Mann Angus A Attending Unavailable DO Mann Angus A Referring Unavailable Mann Angus A Admitting Unavailable Angus Darnell Attending Unavailable Angus Darnell Referring Unavailable Allergies Allergy Classification Reported Allergen(s) Allergy Type Date of Onset Reaction(s) Facility (3 sources) patient allergy list reviewed by nurse or physicia Propensity to adverse reactions 9 Comment:Done Weeve Other (3 sources) Allergies Reconciled Propensity to adverse reactions Unknown [place] Other (1 source) No Known Medication Allergies; Translations: [No Known Medication Allergies] Propensity to adverse reactions (disorder) [facility] Repository Medications Current Medications Medication Drug [...] tablet (3 sources) Opioid Agonist Start: 11-03-2018 Mosby 325 mg-5 mg oral tablet 1 tab(s), [...] Status: Ordered escitalopram 10 mg oral tablet (20 sources) Serotonin Reuptake Inhibitor Start: 08-24-2024 take 1 tablet by mouth once daily escitalopram 10 mg Tab 10 mg = 1 tab(s), Oral, Daily, Anxiety Start Date: 08/24/24 Status: Ordered Start: 01-21-2024 End: 08-03-2024 take 1 tablet by mouth once daily Escitalopram Oxalate 10 mg tablet Active 0 .ROUTE .COMPLEX August 03, 2024 4:11pm TAKE 1 TABLET BY MOUTH EVERY DAY Start: 09-17-2023 End: 01-21-2024 take 1 tablet by mouth once daily Escitalopram Oxalate 10 mg tablet Discontinued 10 MG PO Daily January 14, 2024 2:08pm January 21, 2024 9:43am FreeTextSig: TAKE 1 TABLET BY MOUTH DAILY; [...] 08/01/2020 Active lamoTRIgine 25 mg oral tablet (19 sources) Mood Stabilizer, Anti-epileptic Agent Start: 08-24-2024 take 1 tablet by mouth at bedtime lamotrigine 25 mg Tab 25 mg = 1 tab(s), Oral, Bedtime, Depression Start Date: 08/24/24 Status: Ordered Start: 11-01-2023 End: 04-27-2024 take 1 tablet by mouth at bedtime Lamotrigine 25 mg tablet Active 0 .ROUTE .COMPLEX April 27, 2024 7:48pm TAKE 1 TABLET BY MOUTH AT BEDTIME Start: 11-01-2023 End: 01-28-2024 take 1 tablet by mouth at bedtime Lamotrigine Active 0 .ROUTE .COMPLEX January 28, 2024 9:04am TAKE 1 TABLET BY MOUTH AT BEDTIME Start: 09-17-2023 End: 11-01-2023 take 1 tablet by mouth once daily at bedtime Lamotrigine 25 mg tablet Discontinued 1 TAB PO Daily at bedtime September 16, 2023 11:00pm November 01, 2023 9:36am FreeTextSig: TAKE 1 TABLET BY MOUTH AT BEDTIME; Note: Source Status: Start; Refills: 0; Qty: 90 Tablet; Provider: Jackie Wright ( ) Start: 01-25-2022 take 1 tablet by musa th at bedtime lamoTRIgine 25MG lamoTRIgine 25MG, 1 (one) Tablet at bedtime # 90, 01/25/2022, Ref. x1. Active Oral at bedtime for 0 *Pick strength-form from [facility] for eRX* Dec, Active loratadine 10 mg oral tablet (14 sources) Start: 09-17-2023 take 1 tablet by mouth once daily Loratadine 10 mg tablet Active 10 MG PO Daily September 16, 2023 11:00pm Start: 10-31-2020 take 1 tablet by musa th once daily Loratadine 10MG Loratadine 10MG, 1 (one) Tablet daily # 30, 10/31/2020, Ref. x2. Active Oral daily for 30 *Pick strength-form from [employer] for eRX* October, Active losartan potassium 50 mg oral tablet (19 sources) Angiotensin 2 Receptor Brandi Start: 08-24-2024 take 1 tablet by mouth once daily losartan 50 mg Tab 50 mg = 1 tab(s), Oral, Daily, High blood pressure Start Date: 08/24/24 Status: Ordered Start: 10-21-2023 End: 03-26-2024 take 1 tablet by mouth once daily Losartan 50 mg tablet Active 0 .ROUTE .COMPLEX 90 March 26, 2024 11:18am TAKE 1 TABLET BY MOUTH EVERY DAY Start: 09-17-2023 End: 10-21-2023 take 1 tablet by mouth once daily Losartan 50 mg tablet Discontinued 1 TAB PO Daily September 16, 2023 11:00pm October 21, 2023 12:00pm FreeTextSig: TAKE 1 TABLET BY MOUTH EVERY DAY; Note: Source Status: Start; Refills: 0; Qty: 90 Tablet; Provider: Jackie Wright ( ) methocarbamol 750 mg oral tablet (7 sources) [...] on Sat05/25/24 at 1613, For 1 dose meloxicam 15 mg oral tablet (16 sources) Nonsteroidal Anti-inflammatory Drug Start: 12-03-2023 End: 09-01-2024 take 1 tablet by mouth once daily Meloxicam 15 mg tablet Discontinued 0 .ROUTE .COMPLEX 90 May 04, 2024 12:33pm September 01, 2024 9:54am TAKE 1 TABLET BY MOUTH EVERY DAY Start: 12-13-2021 End: 12-03-2023 take 1 tablet by mouth once daily Meloxicam 15 mg tablet Discontinued 15 MG PO Daily September 16, 2023 11:00pm December 03, 2023 2:38pm FreeTextSig: Meloxicam 15MG, 1 (one) Tablet daily # 90, 12/13/2021, Ref. x2. Active Oral daily; Note: Source Status: Taking; Refills: 90; Provider: Jackie Hammond predniSONE 20 mg oral tablet (3 sources) Start: 09-19-2023 End: 01-30-2024 take 1 tablet by mouth twice daily Prednisone 20 mg tablet Discontinued 20 MG PO Twice daily September 18, 2023 11:00pm January 30, 2024 10:17am Problems Active Problems Problem Classification Problem Date Documented Date Episodic/Chronic Anxiety disorders (1 source) Anxiety 08-24-2024 Chronic Essential hypertension (5 sources) Essential hypertension; Translations: [Essential (primary) hypertension] Chronic Malaise and fatigue (1 source) Other fatigue Episodic Miscellaneous mental health disorders (3 sources) Transient insomnia; Translations: [Adjustment insomnia] Episodic Mood disorders (1 source) Depressive disorder 08-24-2024 Chronic Osteoarthritis (12 sources) Degenerative joint disease involving multiple joints; [...] EAR INITIAL ENCNTR] Onset: 01-06-2022 Episodic Other lower respiratory disease (1 source) Nodule of lung; Translations: [Solitary pulmonary nodule] 09-01-2024 Episodic Other lower respiratory disease (1 source) Solitary pulmonary nodule; Translations: [Solitary pulmonary nodule] 09-01-2024 Episodic Other non-traumatic joint disorders (2 sources) [...] Spondylosis; intervertebral disc disorders; other back problems (4 sources) Low back pain; Translations: [Low back [...] Test Name Value Interpretation Reference Range Facility C Urineon 08-26-2024 Bacteria identified Cx Nom (U) Microbiology PROCEDURE: Urine Culture [R1] SOURCE: U CleanCatch BODY SITE: COLLECTED DATE/TIME: 08/24/2024 12:45 EST RECEIVED DATE/TIME: 08/24/2024 14:07 EST START DATE/TIME: 08/24/2024 14:07 EST FREE TEXT SOURCE: Angus Darnell DO, DO, Jason A FINAL REPORTS Final Report [] Verified Date/Time: 08/26/2024 09:20 EST 300 cfu/ml Mixed skin contaminants Performing Locations R1: [facility] at[facility], [address] [place] [address], [facility]- , , Normal [facility] Comment on above: Performed By: #### 2 [id number] #### [facility] [address] [place] [address] LOWER EXTREMITY W/O CONTR AST Vita 08-26-2024 Exam Date/Time: 08/24/2024 14:01 EST Reason [...] Macdonald M.D. Transcribed by: ARNOLD Technologist: ARIE [facility] Radiology, Radiologist, MD - 08/26/2024 Exam Date/Time: 08/24/2024 14:01 EST [...] Macdonald M.D. Transcribed by: ARNOLD Technologist: ARIE [facility] CT LOWER EXTREMITY W/O CONTR AST RIGHTOrdered By: Radiologist Radiology on 08-26-2024 [facility] [employer] Work Phone: CT Lower Extremity w/o Contr ast [place] 08-26-2024 CT Lower Extremity w/o Contrast Right Exam Date/Time: 08/24/2024 14:01 EST Reason for [...] Macdonald M.D. Transcribed by: ARNOLD Technologist: ARIE Hendricks [facility] XR Chest 2 Viewson XR Chest 2 Views Exam Date/Time: 08/24/2024 13:07 EST Reason for Exam: P.A.T. Report IMPRESSION: Small nodular densities are densities in the right upper lung zone with differential including lung nodules, calcified granulomas, etc. No priors available for comparison. Consider correlation with follow-up CT of the chest. EXAMINATION: XR Chest 2 Views Clinical History: Preop. Comparison: None RESULT: Small nodular density or densities projecting in the right upper lung zone. Probable linear scarring in the right midlung. Lungs otherwise appear clear. No large pleural effusion. No pneumothorax. Normal cardiomediastinal silhouette. No acute osseous findings. Ordering Provider: Adrián Soliz FINAL REPORT Dictated: 08/26/2024 9:36 am Carlos Morgan MD Signed (Electronic Signature): 08/26/2024 9:36 am Signed by: Carlos Morgan MD Transcribed by: ARNOLD Technologist: PBX OPERATOR Normal [facility] ABO/Rh Retypeon 08-24-2024 ABO/Rh Retype Interp Positive Invalid Interpretation Code [facility] Comment on above: Performed By: #### 1 [id number] #### [facility] [address] [place] [address] BLOOD BANKOrdered By: Elsie Jarrell on 08-24-2024 ABO/Rh Retype Interp Positive Invalid Interpretation Code [facility] BB Subsection BMPon 08-24-2024 Anion gap [Moles/Vol] 12 mmol/L Normal 6-16 [facility] Comment on above: Performed By: #### 2 [id number] #### [facility] [address] [place] [address] Calcium [Mass/Vol] 9.1 mg/dL Normal 8.9-11.1 [facility] Comment on above: Performed By: #### 2 [id number] #### [facility] [address] [place] [address] Chloride [Moles/Vol] 100 mmol/L Low 101-111 [facility] Comment on above: Performed By: #### 2 [id number] #### [facility] [address] [place] [address] CO2 [Moles/Vol] 27 mmol/L Normal 21-31 [facility] Comment on above: Performed By: #### 2 [id number] #### [facility] [address] [place] [address] Creatinine [Mass/Vol] 1.2 mg/dL Normal 0.5-1.3 [facility] Comment on above: Performed By: #### 2 [id number] #### [facility] [address] [place] [address] Glucose [Mass/Vol] 97 mg/dL Normal 55-199 [facility] Comment on above: Performed By: #### 2 [id number] #### [facility] [address] [place] [address] Potassium [Moles/Vol] 4.7 mmol/L Normal 3.5-5.3 [facility] Comment on above: Performed By: #### 2 [id number] #### [facility] [address] [place] [address] Sodium [Moles/Vol] 134 mmol/L Low 135-145 [facility] Comment on above: Performed By: #### 2 [id number] #### [facility] [address] [place] [address] Urea nitrogen [Mass/Vol] 16 mg/dL Normal 5-21 [facility] Comment on above: Performed By: #### 2 [id number] #### [facility] [address] [place] [address] Urea nitrogen/Creatinine [Mass ratio] 13 No Units Normal 10-20 [facility] Comment on above: Performed By: #### 2 [id number] #### [facility] [address] [place] [address] CBC w/ Auto Diffon 5 Basophils/100 WBC (Bld) 0.5 % Normal 0.0-2.0 [facility] Comment on above: Performed By: #### 2 [id number] #### [facility] [address] [place] [address] Basophils/Leukocytes Auto (Bld) [Pure # fraction] 0.0 E9/L Normal 0.0-0.2 [facility] Comment on above: Performed By: #### 2 [id number] #### [facility] [address] [place] [address] Eosinophils (Bld) [#/Vol] 0.1 E9/L Normal 0.0-0.5 [facility] Comment on above: Performed By: #### 2 [id number] #### [facility] [address] [place] [address] Eosinophils/100 WBC (Bld) 0.9 % Normal 0.0-8.0 [facility] Comment on above: Performed By: #### 2 [id number] #### [facility] [address] [place] [address] Erythrocyte distribution width (RBC) [Ratio] 13.3 % Normal 10.9-14.2 [facility] Comment on above: Performed By: #### 2 [id number] #### [facility] [address] [place] [address] Hematocrit (Bld) [Volume fraction] 40.5 % Normal 37.7-49.0 [facility] Comment on above: Performed By: #### 2 [id number] #### [facility] [address] [place] [address] Hemoglobin (Bld) [Mass/Vol] 13.9 g/dL Normal 13.5-17.5 [facility] Comment on above: Performed By: #### 2 [id number] #### [facility] [address] [place] [address] Lymphocytes (Bld) [#/Vol] 0.9 E9/L Low 1.0-4.0 [facility] Comment on above: Performed By: #### 2 [id number] #### [facility] [address] [place] [address] Lymphocytes/100 WBC (Bld) 10.1 % Low 14.0-50.0 [facility] Comment on above: Performed By: #### 2 [id number] #### [facility] [address] [place] [address] MCH (RBC) [Entitic mass] 31.4 pg Normal 27.0-34.0 [facility] Comment on above: Performed By: #### 2 [id number] #### [facility] [address] [place] [address] MCHC (RBC) [Mass/Vol] 34.3 g/dL Normal 31.4-36.0 [facility] Comment on above: Performed By: #### 2 [id number] #### [facility] [address] [place] [address] MCV (RBC) [Entitic vol] 91.5 fL Normal 80.0-100.0 [facility] Comment on above: Performed By: #### 2 [id number] #### [facility] [address] [place] [address] Monocytes (Bld) [#/Vol] 0.9 E9/L Normal 0.2-1.0 [facility] Comment on above: Performed By: #### 2 [id number] #### [facility] [address] [place] [address] Neutrophils (Bld) [#/Vol] 7.0 E9/L Normal 2.0-7.5 [facility] Comment on above: Performed By: #### 2 [id number] #### [facility] [address] [place] [address] Neutrophils/100 WBC (Bld) 78.2 % High 36.0-75.0 [facility] Comment on above: Performed By: #### 2 [id number] #### [facility] [address] [place] [address] Platelet mean volume (Bld) [Entitic vol] 9.1 fL Normal 6.4-10.8 [facility] Comment on above: Performed By: #### 2 [id number] #### [facility] [address] [place] [address] Platelets (Bld) [#/Vol] 334.0 E9/L Normal 150.0-500.0 [facility] Comment on above: Performed By: #### 2 [id number] #### [facility] [address] [place] [address] RBC (Bld) [#/Vol] 4.4 E12/L Normal 4.3-5.9 [facility] Comment on above: Performed By: #### 2 [id number] #### [facility] [address] [place] [address] [place] [address] WBC corrected for nucl RBC Auto (Bld) [#/Vol] 9.0 E9/L Normal 4.0-11.0 [facility] Comment on above: Performed By: #### 2 [id number] #### [facility] [address] [place] [address] CHEMISTRYOrdered By: SYSTEM SYSTEM on 08-24-2024 Anion gap [Moles/Vol] 12 [...] Chem eGFR 64 mL/min/1.73 m2 Normal >=59mL/min /1 .73 m2 Remisol Chem Glucose [Mass/Vol] 97 mg/dL [...] AST RIGHTon 08-24-2024 Radiology Study observation (narrative) [facility] HEMATOLOGYOrdered By: SYSTEM SYSTEM on 08-24-2024 Basophils/100 [...] Remisol Heme UA WITH CULT RFLXon 08-24-19 BACTERIA:PRTHR:PT:URI NE:ORD:AUTOMATED Trace Trace /HPF [facility] BILIRUBIN:PRTHR:PT:UR INE:ORD:TEST STRIP.AUTOMATED Negative Negative mg/dL [facility] EPITHELIAL CELLS.SQUAMOUS:NARIC: PT:URINE SED:QN:AUTOMATED COUNT 0-2 CD:[id number] [facility] CLARITY:TYPE:PT:URINE :NOM: Clear Clear [facility] CLASS:TYPE:PT:URINE COLLECTION METHOD:NOM:* Clean Catch [facility] COLOR:TYPE:PT:URINE:N OM:AUTO Yellow Yellow [facility] Comment on above: Microscopic readings are only performed on those samples that meet specific criteria set forth by [facility]. [facility] PH:LSCNC:PT:URINE:QN: TEST STRIP 6.0 5.0 - 9.0 [facility] SPECIFIC GRAVITY:RDEN:PT:URINE :QN:TEST STRIP 1.014 1.005 - 1.030 [facility] GLUCOSE:PRTHR:PT:URIN E:ORD:TEST STRIP Negative Negative mg/dL [facility] HEMOGLOBIN:MCNC:PT:UR INE:SEMIQN:TEST STRIP.AUTOMATED Negative Negative mg/dL [facility] HYALINE CASTS:PRTHR:PT:URINE SED:ORD:MICROSCOPY.LI GHT 0-3 [facility] Interpretation and review of laboratory results Abnormal [facility] KETONES:PRTHR:PT:URIN E:ORD:TEST STRIP.AUTOMATED Negative Negative mg/dL [facility] LEUKOCYTE ESTERASE:PRTHR:PT:URI NE:ORD:TEST STRIP.AUTOMATED 25 Briseyda/uL Negative CD:[id number] [facility] LEUKOCYTES:NARIC:PT:U RINE SED:QN:AUTOMATED COUNT 6-15 Abnormal [facility] MUCUS:PRTHR:PT:URINE: ORD:AUTOMATED Negative Negative CD:[id number] [facility] NITRITE:PRTHR:PT:URIN E:ORD:TEST STRIP.AUTOMATED Negative Negative mg/dL [facility] PROTEIN:PRTHR:PT:URIN E:ORD:TEST STRIP Trace Abnormal Negative mg/dL [facility] UROBILINOGEN:MCNC:PT: URINE:SEMIQN:TEST STRIP 2 mg/dL Abnormal Negative mg/dL [facility] Original Ordering Provider: DO Angus Darnell [facility] UA with Cult Rflxon 02-24-20 25 Bacteria Auto Ql (U) Trace Normal Trace [facility] Comment on above: Performed By: #### 4 [id number] #### [facility] [address] [place] [address] Bilirubin Ql (U) Negative Normal Negative [facility] Comment on above: Performed By: #### 4 [id number] #### [facility] [address] [place] [address] Clarity (U) Clear Normal Clear [facility] Comment on above: Performed By: #### 4 [id number] #### [facility] [address] [place] [address] Color (U) Yellow Normal Yellow [facility] Comment on above: Result Comment: Micr oscopic readings are only performed on those samples that meet specific criteria set forth by [facility]. Performed By: #### 4 [id number] #### [facility] [address] [place] [address] Epithelial cells.squamous Auto (Urine sed) [#/Area] 0-2 Invalid Interpretation Code [facility] Comment on above: Performed By: #### 4 [id number] #### [facility] [address] [place] [address] Glucose Ql (U) Negative Normal Negative [facility] Comment on above: Performed By: #### 4 [id number] #### [facility] [address] [place] [address] Hemoglobin Auto test strip (U) [Mass/Vol] Negative Normal Negative [facility] Comment on above: Performed By: #### 4 [id number] #### [facility] [address] [place] [address] Hyaline casts LM Ql (Urine sed) 0-3 Normal 0-3 [facility] Comment on above: Performed By: #### 4 [id number] #### [facility] [address] [place] [address] Ketones Auto test strip Ql (U) Negative Normal Negative [facility] Comment on above: Performed By: #### 4 [id number] #### [facility] [address] [place] [address] Leukocyte esterase Auto test strip Ql (U) 25 Briseyda/uL Normal Negative [facility] Comment on above: Performed By: #### 4 [id number] #### [facility] [address] [place] [address] Mucus Auto Ql (U) Negative Normal Negative [facility] Comment on above: Performed By: #### 4 [id number] #### [facility] [address] [place] [address] Nitrite Auto test strip Ql (U) Negative Normal Negative [facility] Comment on above: Performed By: #### 4 [id number] #### [facility] [address] [place] [address] pH (U) 6.0 [pH] Invalid Interpretation Code 5.0-9.0 [facility] Comment on above: Performed By: #### 4 [id number] #### [facility] [address] [place] [address] Protein Ql (U) Trace Abnormal Negative [facility] Comment on above: Performed By: #### 4 [id number] #### [facility] [address] [place] [address] Specific gravity (U) [Rel density] 1.014 Invalid Interpretation Code 1.005-1.030 [facility] Comment on above: Performed By: #### 4 [id number] #### [facility] [address] [place] [address] Urobilinogen (U) [Mass/Vol] 2 mg/dL Abnormal Negative [facility] Comment on above: Performed By: #### 4 [id number] #### [facility] [address] [place] [address] WBC Auto (Urine sed) [#/Area] 6-15 Abnormal 0-5 [facility] Comment on above: Performed By: #### 4 [id number] #### [facility] [address] [place] [address] Type of Urine collection method Clean Catch Normal [facility] Comment on above: Performed By: #### 4 [id number] #### [facility] [address] [place] [address] URINALYSISOrdered By: SYSTEM SYSTEM on 08-24-2024 Bacteria Auto Ql (U) Trace /HPF Normal Trace/HPF [facility] UA Auto SS Bilirubin Ql (U) Negative Normal Negativemg/ d L [facility] UA Auto SS Clarity (U) Clear (08/24/24 12:45 PM) Normal Clear [facility] UA Auto SS Color (U) Yellow 1 (08/24/24 12:45 PM) Normal Yellow [facility] UA Auto SS Comment on above: Interpretive Data: M icroscopic readings are only performed on those samples that meet specific criteria set forth by [facility]. Epithelial cells.squamous Auto (Urine sed) [#/Area] 0-2 graded/HPF Invalid Interpretation Code [facility] UA Auto SS Glucose Ql (U) Negative Normal Negativemg/d L [facility] UA Auto SS Hemoglobin Auto test strip (U) [Mass/Vol] Negative Normal Negativemg/d L [facility] UA Auto SS Hyaline casts LM Ql (Urine sed) 0-3 graded/LPF Normal 0-3graded/LP F [facility] UA Auto SS Ketones Auto test strip Ql (U) Negative Normal Negativemg/d L [facility] UA Auto SS Leukocyte esterase Auto test strip Ql (U) 25 Briseyda/uL Briseyda/uL Normal NegativeLeu/ uL [facility] UA Auto SS Mucus Auto Ql (U) Negative Normal Negativegr ad ed/LPF [facility] UA Auto SS Nitrite Auto test strip Ql (U) Negative Normal Negativemg/d L [facility] UA Auto SS pH (U) 6.0 *NA* (08/24/24 12:45 PM) Invalid Interpretation Code 5.0 - 9.0 [facility] UA Auto SS Protein Ql (U) Trace mg/dL Invalid Interpretation Code Negativemg/d L [facility] UA Auto SS Specific gravity (U) [Rel density] 1.014 *NA* (08/24/24 12:45 PM) Invalid Interpretation Code 1.005 - 1.030 [facility] UA Auto SS Urobilinogen (U) [Mass/Vol] 2 mg/dL Invalid Interpretation Code Negativemg/d L [facility] UA Auto SS WBC Auto (Urine sed) [#/Area] 6-15 graded/HPF Invalid Interpretation Code 0-5graded/HP F [facility] UA Auto SS URINALYSISOrdered By: Anastacia Ady on 08-24-2024 UA Spec Desc Clean Catch (08/24/24 12:45 PM) Normal [facility] UA Auto SS eGFRon 08-24-2024 eGFR 64 mL/min/1.73 m2 Normal >=59 [facility] Comment on above: Performed By: #### 1 [id number] #### [facility] Laboratory [address] [place] [address] No Panel Informationon 05-25 Rowan Bojorquez MA [...] to verify the correct patient, procedure, equipment, it support consultant and site/side marked as required. Patient was prepped and draped in the usual sterile fashion. [facility] XR Knee - left 1 or 2 [...] subluxation of the right patella is noted [facility] Radiology Study observation (narrative) [facility] CT LUNG CANCER SCREENINGon 0 01-14-2022 [...] SIMRAN MATIAS Date: 2022-01-14 09:21 Normal [facility] CHEMISTRYOrdered By: SYSTEM SYSTEM on 01-03-2022 Anion gap [Moles/Vol] 11 mmol/L Normal 6 - 16 mEq/L F [facility] Remisol Calcium [Mass/Vol] 8.9 mg/dL Normal 8.9 - 11. 1 mg/dL [facility] Remisol Chloride [Moles/Vol] 104 mmol/L Normal 101 - 1 11 mmol/L [facility] Remisol CO2 [Moles/Vol] 28 mmol/L Normal 21 - 31 mmol/L [facility] Remisol Creatinine [Mass/Vol] 1.3 mg/dL Normal 0.5 - 1.3 mg/dL [facility] Remisol GFR/1.73 sq M.predicted among blacks MDRD (S/P/Bld) [Vol rate/Area] mL/min/1.73 m2 Normal >=59mL/min/1 .73 m2 FT Chem S GFR/1.73 sq M.predicted among non-blacks MDRD (S/P/Bld) [Vol rate/Area] 55 mL/min/1.73 m2 Low >=59mL/min/1 .73 m2 FT Chem S Glucose [Mass/Vol] 102 [...] Normal 4.0 - 11.0 E9/L FT HemeAutoSS CT CERVICAL SPINE WO CONTRAS Ton [...] Chino Mcqueen MD 08/01/20 Final result Normal [facility] No acute abnormality of the cervical spine. Multilevel degenerative changes. [facility] [place], [place] Claudio, Mhpn Incoming Radiant Results From General Fusion/PearlChain.nets - 08/01/2020 1:22 PM EST EXAMINATION: CT [...] of the cervical spine. Multilevel degenerative changes. [employer] EXAMINATION: CT OF THE CERVICAL SPINE WITHOUT [...] There is no prevertebral soft tissue swelling. [employer], [employer] CT HEAD WO CONTRASTon 2020 CT HEAD [...] Randolph Roman MD 08/01/20 Final result Normal [facility] Claudio, Mhpn Incoming Radiant Results From [facility]/PearlChain.nets - 08/01/2020 1:20 PM EST EXAMINATION: CT [...] fossa. 2. No convincing acute intracranial abnormality. [facility] [place], [place] EXAMINATION: CT OF THE HEAD WITHOUT [...] of the visualized skull or soft tissues. [place], [place] 1. Streak artifact from dental amalgam limits evaluation of the posterior fossa. 2. No convincing acute intracranial abnormality. [place] CT THORACIC SPINE WO CONTRAS Ton [...] Panfilo Middleton MD 08/01/20 Final result Normal [facility] Claudio, Mhpn Incoming Radiant Results From General Fusion/Zwipe - 08/01/2020 1:29 PM EST EXAMINATION: CT [...] fracture or malalignment of the thoracic spine. [employer] EXAMINATION: CT OF THE THORACIC SPINE WITHOUT [...] SOFT TISSUES: No paraspinal mass is seen. [employer] No acute fracture or malalignment of the thoracic spine. [employer] [place] XR ELBOW LEFT (MIN 3 VIEWS)o n [...] Randolph Roman MD 08/01/20 Final result Normal [facility] Claudio, Mhpn Incoming Radiant Results From Powerscribe/Pacs [...] the left elbow. 2. Minimal degenerative changes. [place] EXAMINATION: THREE XRAY VIEWS OF THE [...] The soft tissues demonstrate no acute abnormality. [facility] [place] 1. No acute osseous abnormality identified of the left elbow. 2. Minimal degenerative changes. [place] Vital Signs Date Time Vital Sign Value Performing Clinician Facility 09-01-2024 09:49-0500 Body height 185.42 cm [facility] 09-01-2024 09:49-0500 Body mass index (BMI) [Ratio] 25.1 kg/m2 [facility] 09-01-2024 09:49-0500 Body weight 86.35 kg [facility] 09-01-2024 09:49-0500 Diastolic blood pressure 73 mm[Hg] [facility] 09-01-2024 09:49-0500 Heart rate 66 /min [facility] 09-01-2024 09:49-0500 Systolic blood pressure 169 mm[Hg] [facility] 08-24-2024 12:42-0500 Diastolic blood pressure 80 mm[Hg] Angus Darnell [facility] 08-24-2024 12:42-0500 Heart rate 76 /min Angus Darnell [facility] 08-24-2024 12:42-0500 Mean blood pressure 103 mm[Hg] Angus Darnell [facility] 08-24-2024 12:42-0500 Systolic blood pressure 149 mm[Hg] Angus Darnell [facility] 08-24-2024 12:41-0500 Heart rate 60 /min Angus Darnell [facility] 08-24-2024 12:41-0500 SaO2% (BldA) [Mass fraction] 99 % Angus Darnell [facility] 08-24-2024 12:41-0500 Body temperature 98.24 [degF] Angus Darnell [facility] 08-24-2024 12:41-0500 Blood Pressure Location Angus Darnell [facility] 08-24-2024 12:41-0500 Diastolic blood pressure 70 mm[Hg] Angus Darnell [facility] 08-24-2024 12:41-0500 Mean blood pressure 97 mm[Hg] Angus Darnell [facility] 08-24-2024 12:41-0500 Systolic blood pressure 151 mm[Hg] Angus Darnell [facility] 08-24-2024 12:40-0500 Respiratory rate 16 /min Angus Darnell [facility] 08-06-2024 10:10-0500 Body height 180.3 cm Angus Darnell DO Work Phone: [facility] 08-06-2024 10:10-0500 Body mass index (BMI) [Ratio] 26.78 kg/m2 Angus Darnell DO Work Phone: [facility] 08-06-2024 10:10-0500 Body temperature 97.5 [degF] Angus Darnell DO Work Phone: [facility] 08-06-2024 10:10-0500 Body weight 87.09 kg Angus Darnell DO Work Phone: [facility] 05-25-2024 15:41-0500 Body height 181.6 cm [facility] Work Phone: [facility] 05-25-2024 15:41-0500 Body mass index (BMI) [Ratio] 26.41 kg/m2 [facility] Work Phone: [facility] 05-25-2024 15:41-0500 Body weight 87.09 kg [facility] Work Phone: [facility] 01-30-2024 10:58-0400 Body height 185.42 cm [facility] 01-30-2024 10:58-0400 Body mass index (BMI) [Ratio] 24.6 kg/m2 [facility] 01-30-2024 10:58-0400 Body weight 84.82 kg [facility] 01-30-2024 10:58-0400 Diastolic blood pressure 68 mm[Hg] [facility] 01-30-2024 10:58-0400 Heart rate 57 /min [facility] 01-30-2024 10:58-0400 Systolic blood pressure 149 mm[Hg] [facility] 09-19-2023 08:30-0400 Body height 185.42 cm [facility] 09-19-2023 08:30-0400 Body mass index (BMI) [Ratio] 25.6 kg/m2 [facility] 09-19-2023 08:30-0400 Body weight 87.99 kg [facility] 09-19-2023 08:30-0400 Diastolic blood pressure 72 mm[Hg] [facility] 09-19-2023 08:30-0400 Heart rate 57 /min [facility] 09-19-2023 08:30-0400 Systolic blood pressure 162 mm[Hg] [facility] 06-06-2023 10:15-0500 Body height 185.42 cm Adriana Mejia Other [facility] Other 06-06-2023 10:15-0500 Body mass index (BMI) [Ratio] 25.54 kg/m2 Adriana Mejia Other [facility] Other 06-06-2023 10:15-0500 Body weight 87.82 kg Adriana Mejia Other [facility] Other 06-06-2023 10:15-0500 Diastolic blood pressure 70 mm[Hg] Adriana Mejia Other [facility] Other 06-06-2023 10:15-0500 Systolic blood pressure 159 mm[Hg] Adriana Mejia Other [facility] Other 04-19-2023 09:30-0400 Body height 185.42 cm Adirana Mejia Other [facility] Other 04-19-2023 09:30-0400 Body mass index (BMI) [Ratio] 24.7 kg/m2 Adriana Mejia Other [facility] Other 04-19-2023 09:30-0400 Body weight 84.91 kg Adriana Mejia Other [facility] Other 04-19-2023 09:30-0400 Diastolic blood pressure 77 mm[Hg] Adriana Mejia Other [facility] Other 04-19-2023 09:30-0400 Systolic blood pressure 159 mm[Hg] Adriana Mejia Other [facility] Other 01-06-2022 07:59-0400 Body temperature 97.7 [degF] Kirill Simon [facility] 01-06-2022 07:59-0400 Diastolic blood pressure 88 mm[Hg] Kirill Simon [facility] 01-06-2022 07:59-0400 Heart rate 60 /min Kirill Alfred [facility] 01-06-2022 07:59-0400 Respiratory rate 15 /min Kirill Simon [facility] 01-06-2022 07:59-0400 SaO2% (BldA) [Mass fraction] 98 % Kirill Alfred [facility] 01-06-2022 07:59-0400 Systolic blood pressure 202 mm[Hg] Kirill Alfred [facility] 08-01-2020 13:03-0500 Body Temperature 97.59 [degF] [place] 08-01-2020 12:35-0500 BP Diastolic 73 mm[Hg] [place] 08-01-2020 12:35-0500 BP Systolic 149 mm[Hg] [place] 08-01-2020 12:35-0500 Pulse (Heart Rate) 76 /min [place] 08-01-2020 12:35-0500 Pulse Oximetry 99 % [place] 08-01-2020 12:35-0500 Respiratory Rate 18 /min [place] Encounters Encounter Date Encounter Type Care Provider Facility Start: 09-01-2024 End: 09-01-2024 ambulatory [facility] Work Phone: Start: 09-01-2024 End: 09-01-2024 Patient encounter procedure [facility] Physician [facility] Work Phone: Start: 08-24-2024 End: 08-26-2024 Clinisync Result Encounter Angus Darnell DO Work Phone: [facility] Unsolicited Start: 08-24-2024 End: 08-26-2024 Clinisync Result Encounter Angus Darnell DO Work Phone: [facility] Unsolicited Start: 08-24-2024 End: 08-24-2024 ambulatory DO Angus Giuliano Mann Facility:[facility] Start: 08-24-2024 End: 08-24-2024 Patient encounter procedure Angus Nobles Mann [facility] Start: 08-06-2024 End: 08-06-2024 Bamboo flowsheet Angus Darnell DO Work Phone: [facility] Start: 08-06-2024 End: 08-06-2024 Bamboo flowsheet Angus Nobles Mann DO Work Phone: [facility] Start: 08-06-2024 End: 08-06-2024 Patient encounter procedure Angus Darnell DO Work Phone: [facility] Comment on above: Osteoarthritis of pa tellofemoral joints of both knees Start: 08-06-2024 End: 08-06-2024 ambulatory ANGUS A MANN Not Available Start: 07-13-2024 End: 07-13-2024 ambulatory Brett Mantilla MD Facility:[facility] Start: 05-25-2024 End: 05-25-2024 Patient encounter procedure Barbara TIWARI Work Phone: [facility] Comment on above: 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); Acute pain of left knee; Osteoarthritis of patellofemoral joints of both knees Start: 05-25-2024 End: 05-25-2024 ambulatory BARBARA BLAND Not Available Start: 05-25-2024 End: 05-25-2024 ambulatory BARBARA BLAND Not Available Start: 01-30-2024 End: 01-30-2024 ambulatory [facility] Work Phone: Start: 01-30-2024 End: 01-30-2024 Patient encounter procedure [facility] Physician [facility] Work Phone: Start: 12-02-2023 End: 12-02-2023 ambulatory Andmario albertous Franky Steeleitis [facility] Start: 11-11-2023 End: 11-11-2023 ambulatory Andrius Vytautas Giedraitis Facility:[facility] [place] Start: 10-28-2023 End: 10-28-2023 ambulatory Andrius Vytautas Roseannedraitis [facility] Start: 10-14-2023 End: 10-14-2023 ambulatory Andrius Trevorytautas Cedricitis Facility:[facility] Start: 09-19-2023 End: 09-19-2023 ambulatory [facility] Work Phone: Start: 09-19-2023 End: 09-19-2023 Patient encounter procedure [facility] Work Phone: Start: 06-06-2023 End: 06-06-2023 ambulatory Adriana Mejia Other [employer] Other Start: 06-06-2023 Office outpatient vi sit 15 minutes Adriana Mejia [facility] Start: 04-25-2023 End: 04-25-2023 ambulatory Adriana Mejia Other [facility] Other Start: 04-25-2023 Telephone encounter Adriana Mejia [facility] Start: 04-19-2023 End: 04-19-2023 ambulatory Adriana Mejia Other [employer] Other Start: 04-19-2023 Patient encounter procedure Adriana Mejia [facility] Start: 01-13-2022 End: 01-14-[address] ADRIANA MEJIA Facility: Start: 01-06-2022 End: 01-06-2022 Emergency department patient visit Kirill Simon [facility] Start: 01-06-2022 End: 01-06-[address] LENA MARIE Facility:[facility] Start: 01-03-2022 End: 01-03-2022 Patient encounter procedure ADRIANA JACKIE [facility] Start: 10-09-2021 End: 10-09-2021 Patient encounter procedure Beth Fischerd [facility] Start: 08-01-2020 End: 08-01-2020 Emergency department [facility] Start: 08-01-2020 End: 08-01-2020 Emergency department patient visit Tomialyssia Estrella Work Phone: [facility] Comment on above: Closed head injury, [...] [place] Work Phone: broke leg [facility] Hernia repair Angus Darnell Plan of Treatment Date Care Activity Detail Author Start: 12-04-2029 DTaP/Tdap/Td vaccine (2 - Td) DTaP/Tdap/Td vaccine (2 - Td) [place] Start: 09-24-2024 End: 09-24-2024 Patient encounter procedure 09/24/2024 9:00 AM EDT Office Visit [facility] [address] [facility] [place] [address] Angus Darnell DO [address] [place], [place] [id number] [facility] Start: 08-24-2024 End: 08-24-2025 Urinalysis complete panel - Urine Urinalysis with reflex microscopic Lab Routine Osteoarthritis of patellofemoral joints of both knees Expected: 08/24/2024 (Approximate), Expires: 08/24/2025 [facility] Work Phone: Comment on above: Expected: 08/24/2024 (Approximate), Expires: 08/24/2025 Start: 08-06-2024 End: 08-06-2024 Patient encounter procedure 08/06/2024 10:30 AM EST Office Visit [facility] [address] [facility] [place] [address] Angus Darnell DO [address] [place] [address] Arrived [facility] Comment on above: Arrived Start: 03-01-2024 Influenza vaccination Influenza Vacc ine (#1) [facility] Start: 04-27-2020 Pneumococcal Vaccine : 65+ Years (2 of 2 - PPSV23 or PCV20) Pneumococcal Vaccine: 65+ Years (2 of 2 - PPSV23 or PCV20) [facility] Start: 03-01-2020 Influenza vaccination Flu vaccine (# 1) [place] Start: 2018 Pneumococcal 65+ yea rs Vaccine (1 of 1 - PPSV23) Pneumococcal 65+ years Vaccine (1 of 1 - PPSV23) [place] Start: 2018 Pneumococcal Vaccine : 65+ Years (1 of 1 - PCV) Pneumococcal Vaccine: 65+ Years (1 of 1 - PCV) [facility] Start: 2003 Screening for malign ant neoplasm of colon Colon cancer screen colonoscopy [place], [place] Start: 2003 Shingles Vaccine (1 of 2) Shingles Vaccine (1 of 2) [place] Start: 1993 Lipid panel Lipid screen [place], [place] Start: 1953 Abdominal aortic aneurysm screening AAA screen [place], [place] Start: 1955 Hepatitis C screening Hepatitis C sc reen [place], [place] Start: 1955 Screening for malign ant neoplasm of colon [facility] CT Chest WO contrast [facility] XR Lumbar spine 2 or 3 Views [facility] Immunizations Immunization Date Immunization Notes Care Provider Fa cili 04-19-2023 influenza virus vaccine, unspecified formulation [facility] 04-19-2023 influenza, high dose seasonal, preservative-free Adriana Mejia Other [employer] Other 09-30-2020 COVID-19, mRNA, LNP- S, PF, 30 mcg/0.3 mL dose; Translations: [Pfizer-BioNTech COVID-19 Vaccine] Beth Bradley [facility] Comment on above: Reason for Medicatio n: Prophylaxis 09-09-2020 COVID-19, mRNA, LNP- S, PF, 30 mcg/0.3 mL dose; Translations: [Pfizer-BioNTech COVID-19 Vaccine] Beth Bradley [facility] Comment on above: Reason for Medicatio n: Prophylaxis 12-05-2019 tetanus toxoid, reduced diphtheria toxoid, and acellular pertussis vaccine, adsorbed; Translations: [Adacel (Tdap)] Beth Fischerd [facility] 04-27-2019 influenza virus vaccine, split virus (incl. purified surface antigen) Adriana Mejia Other [employer] Other 04-27-2019 influenza virus vaccine, unspecified formulation [facility] 04-27-2019 pneumococcal conjuga te vaccine, 13 valent Adriana Mejia Other [facility] 07-08-2017 diphtheria, tetanus toxoids and acellular pertussis vaccine, unspecified formulation Adriana Mejia Other [facility] 02-05-2017 influenza virus vaccine, unspecified formulation Angus Mann KARIMI Work Phone: [facility] Payers Date Payer Category Payer Private Health Insurance AARP Ma mber [id number] 2023 Unknown 2018 Medicare [id number] 1959 Medicare [id number] 1959 Private Health Insurance [id number] 1953 Unknown [id number] [id number] .175 1953 Unknown [id number] [id number] .593 1953 Unknown [id number] [id number] .593 1953 Unknown [id number] [id number] .196 1953 Unknown [id number] [id number] .196 1953 Unknown [id number] [id number] .196 1953 Unknown [id number] [id number] .196 1953 Unknown [id number] [id number] .196 1953 Unknown [id number] [id number] .1259 1953 Unknown [id number] [id number] .1259 1953 Unknown [id number] [id number] .1259 1953 Unknown [id number] [id number] .727 Social History Date Type Detail Facility Start: 08-01-2020 End: 05-25-2024 Tobacco smoking status NHIS Current every day smoker [place], [place] History of tobacco use Cigarette Smoker M [place] Start: 08-01-2020 End: 05-25-2024 Tobacco use and exposure Never used [place] Start: 08-01-2020 End: 08-06-2024 Alcohol intake Current drinker of alcohol (finding) [place] Start: 08-01-2020 Alcohol Comment daily 3-4 beer s per day [place], [place] Start: 1955 Sex Assigned At Not on file M [facility] [place], [place] Tobacco [facility] Comment on above: smokes 1 ppd. Start: 05-25-2024 End: 08-06-2024 Sex Assigned At Male [facility] Start: 1955 Sex Assigned At Male F [facility] Start: 05-25-2024 End: 08-06-2024 History of Social function [facility] Start: 05-25-2024 Alcohol Comment Daily [facility] Tobacco smoking status No Smokin g Status Entered [facility] ever [facility] Work Phone: Start: 09-01-2024 Sex Male (finding) [facility] Functional Status Date Assessment Result Facility 08-24-2024 Functional Status No [facility] 01-06-2022 Functional Status N/A [facility] Clinical Notes 10-04-2021 to 08-06-2024 Angus Darnell DO - 08/06/2024 10:30 AM Sara Bojorquez MA - 05/25/2024 3:45 PM ESTToTE Steele - 05/25/2024 3:45 PM ESTPatient Instructions Note Date & Type Note Facility 08-06-2024 History of Presen t illness Narrative Images from the original note were not included. [facility] Mannie Giuliano Antoine is a 69 y.o. male who presents for Pain of the Left Knee HPI: History of Present Illness The patient is a 69-year-old male who presents as a new patient to my practice today for his left knee. He was previously under the care of our physician assistant associate full professor, Barbara Bland. He has tried meloxicam, Robaxin, [...] with a right total knee arthroplasty with [employer] robotic arm assistance. The [employer] platform will be utilized. Surgery will be [...] note was created using voice recognition through [employer] artificial intelligence. documented in this encounter [facility] 05-25-2024 History of Presen t illness Narrative [...] to verify the correct patient, procedure, equipment, it support consultant and site/side marked as required. Patient was [...] lateral subluxation of the right patella with [id number]-[id number] changes and advancing arthritis with no subluxation of the left patellofemoral joint with fairly well-preserved mediolateral compartments seen on x-ray from [place] as well as weight-bearing films here in [...] knee. TE Vera documented in this encounter [facility] 05-25-2024 Instructions TE Vera - 05/25/2024 [...] support the knee. documented in this encounter [facility] 06-06-2023 Evaluation note Encounter Date Diagnosis Assessment Notes May, Removal of michelle (ICD-10 - Z48.02) Pt tolerated staple removal well. Pt denies LOC or fall without reason. He slipped in slippers on an icy patio with dog outside. Steristrips applied.. Keep area clean. [facility] Other 10-20-2023 Evaluation note* Encounter Date Diagnosis [...] to quit smoking. Agrees to LDCT at [place] [facility] Other 07-09-2022 Evaluation + Plan noteExtracted from: Title:ED Note Author:Ramon Gauthier PA-C te:01/06/22 Otitis externa (H60.90: Unsp ecified otitis externa, unspecified ear) Orders: ciprofloxacin-dexamethasone otic, 4 drop(s), Ear-Right, BID for 7 day(s), 10 mL, Refill(s) 0 [facility]07-09-2022 Hospital Discharge instructions Patient Education [...] antibiotic even if your condition improves. Take [id number] and prescription medicines only as told by [...] 06/17/2006 Document Revised: 11/21/2018 Document Reviewed: 11/21/2018 [employer] Patient Education 2020 [employer]. 01/06/2022 08:25:56 Ear Drops, Adult Ear Drops, [...] 06/11/2002 Document Revised: 05/30/2018 Document Reviewed: 06/20/2017 [employer] [facility] Patient Education 2020 [employer] Follow Up Care 01/06/2022 07:58:43 With:Elizabeth Veliz Address: [address] [place] [address], [address] [place] [address]- Business (1) When:01/09/2022 08:19:10 With:ADRIANA MEJIA Address: [address] [place] [id number] Business (1) When:01/09/2022 08:19:07 [facility]04-06-2022 Hospital Discharge instructions Follow Up Care 10/04/2021 10:34:18 With:Kirk MOREAU, MANAV Vincent SUR Address: [address] [place] [address] [place] [address]- When:1 year [facility] No data available for this section [facility] Future Appointments Appointment Date:09/09/2024 07:30:00 AM Scheduled Provider: [facility] [facility] Appointment Type:Surgery FT Diagnostic Tests Pending * Urine Culture 08/24/24 [facility] [employer] Other Evaluation note* Diagnosis Onset Date Resolution Status Lumbar pain with radiation down both legs acute [facility] Work Phone: Evaluation noteNo assessment information available [facility] Work Phone: Evaluation note* Diagnosis Localized osteoarthritis of left knee- Primary Acute pain of left knee Osteoarthritis of patellofemoral joints of both knees documented in this encounter [facility] HealthcareEvaluation note* Diagnosis Osteoarthritis of patellofemoral joints of both knees documented in this encounter [facility] HealthcareEvaluation note* Diagnosis Onset Date Resolution Status Admit Date Lung nodule seen on imaging study [place] September 01, 2024 9:35am [facility] Work Phone: History general Narrative - Reported* Type Description Date Medical History Depression, controlled Medical History Generalized osteoarthrosis Medical History Transient insomnia Medical History Obstructive sleep apnea Surgical History Hernia Repair Surgical History Left ankle surgery - with plate s and screws 2014 Hospitalization History SEE SURGICAL HX [facility] [employer] Other Hospital Discharge instructions No data available for this section [facility] No data available for this section [facility] Discharge Instructions * Instructions* George Alcala, - 08/01/2020 Thank you for visiting [facility] Emergency Department. You need to call Adriana Mejia MD to make an appointment as directed for follow up. Should you have any questions regarding your care or further treatment, please call [facility] Emergency Department at [phone]. Take any medications as prescribed, if given [...] Everywhere. * Head Injury: Closed: General Info (Honduran) documented in this encounter Assessments Diagnosis Closed [...] Time Advance Directives No September 18 8:20am Advance Directive Response Recorded Date/ Time Advance Directives No September 18 7:20am Chief Complaint and Reason for Visit Chief Complaint arthritis Reason for Visit Lumbar pain with rad iation down both legs Chief Complaint discuss different me dication Chief Complaint Admit Date go over test results September 01, 2024 9:3 5am Reason for Visit Admit Date Lung nodule seen on imaging study September 01, 2024 9:35am Additional Source Comments Reason for Visit (unrecogniz [...] and content) DATE CREATED AUTHOR 08/02/2020 [facility] DATE CREATED AUTHOR AUTHOR'S ORGANIZ ATION 01/17/2022 [facility] DATE CREATED AUTHOR AUTHOR'S ORGANIZ ATION 07/22/2024 [facility] DATE CREATED AUTHOR AUTHOR'S ORGANIZ ATION 08/08/2024 [facility] DATE CREATED AUTHOR AUTHOR'S ORGANIZ ATION 08/25/2024 [facility] DATE CREATED AUTHOR AUTHOR'S ORGANIZ ATION 08/26/2024 [facility] DATE CREATED AUTHOR AUTHOR'S ORGANIZ ATION 09/02/2024 [facility] Care Team (unrecognized sect ion and [...] January 30, 2024 End: January 30, 2024 Bus Boy Relationship Specialty Start Date End Date Adriana Mejia MD [address] [place] [address] PCP - General Family Medicine 08/06/24 Bus Boy Relationship Specialty Start Date End Date Adriana Mejia MD [address] [place] [address] PCP - General Family Medicine 08/06/24 Team Status: Inactive Member Role Status Dates Adriana Mejia MD Primary Care Provide r, Attending Provider Active Start: September 01, 2024 End: September 01, 2024 Goals (unrecognized section and content) Goals [...] BE BASED ON THE PRIMARY CLINICAL RECORDS. [facility] [employer] [facility]. provides no warranty or guarantee of the accuracy or completeness of information in this document.
[2024-09-03 10:36] LABS: Free T4 0.74 ng/dL (0.76-1.46)
[2024-09-03 10:41] LABS: Thyroid Stimulating Hormone 1.486 uIU/mL (0.358-3.740)
== END 2024-09-03 09:17 | disposition home or self-care (01) ==
LOC: CT 09:17
PROVIDERS: PCP Family Medicine; Visit Provider Family Medicine
DX: R91.1 Solitary pulmonary nodule (principal); I10 Essential (primary) hypertension; R53.83 Other fatigue
CPT/HCPCS: 36415; 71250; 84439; 84443

== ENCOUNTER 2024-09-07 11:33 | Outpatient (OUT) | payer MEDICARE, SELFPAY ==
--- OUTSIDE RECORDS SUMMARY | 2024-09-07 11:56 | XMS_ITS | CCD ---
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 Name Role Phone Adriana Mejia Primary Care [...] physicia Propensity to adverse reactions 9 Comment:Done [facility] Other (3 sources) Allergies Reconciled Propensity to adverse reactions Unknown [facility] Other (1 source) No Known Medication Allergies; Translations: [No Known Medication Allergies] Propensity to adverse reactions (disorder) [facility] Repository Medications Current Medications Medication Drug [...] tablet (3 sources) Opioid Agonist Start: 11-03-2018 Rudyard 325 mg-5 mg oral tablet 1 tab(s), [...] at bedtime for 0 *Pick strength-form from [facility] for eRX* Dec, Active loratadine 10 mg [...] Oral daily for 30 *Pick strength-form from [facility] [employer] [facility] for eRX* October, Active losartan potassium 50 [...] Locations R1: [facility] [address] [place] [address], [facility] , , Normal [facility] Comment on above: Performed By: #### 2 [id number] #### [facility] [address] [place] [address] LOWER EXTREMITY W/O CONTR AST Vita 08-26-2024 [...] Macdonald M.D. Transcribed by: ARNOLD Technologist: ARIE [place] Radiology, Radiologist, MD - 08/26/2024 Exam Date/Time: [...] Macdonald M.D. Transcribed by: ARNOLD Technologist: ARIE [facility] CT LOWER EXTREMITY W/O CONTR AST RIGHTOrdered By: Radiologist Radiology on 08-26-2024 [facility] [employer] Work Phone: CT Lower Extremity w/o Contr [...] M.D. Transcribed by: ARNOLD Technologist: ARIE Hendricks [facility] XR Chest 2 Viewson XR Chest [...] Carlos Morgan MD Transcribed by: ARNOLD Technologist: DIAMOND PICKER Normal [facility] ABO/Rh Retypeon 08-24-2024 ABO/Rh Retype Interp Positive Invalid Interpretation Code [facility] Comment on above: Performed By: #### 1 [id number] #### [facility] [address] [place] [address] BLOOD BANKOrdered By: Elsie Jarrell on 08-24-2024 ABO/Rh Retype Interp Positive Invalid Interpretation Code [place] BB Subsection BMPon 08-24-2024 Anion gap [Moles/Vol] 12 mmol/L Normal 6-16 [facility] Comment on above: Performed By: #### 2 [id number] #### [facility] [address] [place] [address] Calcium [Mass/Vol] 9.1 mg/dL Normal 8.9-11.1 [facility] Comment on above: Performed By: #### 2 [id number] #### [facility] [address] [place] [address] Chloride [Moles/Vol] 100 mmol/L Low 101-111 [facility] Comment on above: Performed By: #### 2 [id number] #### [facility] [address] [place] [address] CO2 [Moles/Vol] 27 mmol/L Normal 21-[address] [facility] Comment on above: Performed By: #### 2 [id number] #### [facility] [address] [place] [address] Creatinine [Mass/Vol] 1.2 mg/dL Normal 0.5-1.3 [facility] Comment on above: Performed By: #### 2 [id number] #### [facility] [address] [place] [address] Glucose [Mass/Vol] 97 mg/dL Normal 55-199 [facility] Comment on above: Performed By: #### 2 [id number] #### [facility] [address] [place] [address] Potassium [Moles/Vol] 4.7 mmol/L Normal 3.5-5.3 [facility] Comment on above: Performed By: #### 2 [id number] #### [facility] [address] [place] [address] Sodium [Moles/Vol] 134 mmol/L Low 135-145 [facility] Comment on above: Performed By: #### 2 [id number] #### [facility] [address] [place] [address] Urea nitrogen [Mass/Vol] 16 mg/dL Normal 5-21 [facility] Comment on above: Performed By: #### 2 [id number] #### [facility] [address] [place] [address] Urea nitrogen/Creatinine [Mass ratio] 13 No Units Normal 10-20 [facility] Comment on above: Performed By: #### 2 [id number] #### [facility] [address] [place] [address] CBC w/ Auto Diffon 5 Basophils/100 WBC (Bld) 0.5 % Normal 0.0-2.0 [facility] Comment on above: Performed By: #### 2 [id number] #### [facility] [address] [place] [address] Basophils/Leukocytes Auto (Bld) [Pure # fraction] 0.0 E9/L Normal 0.0-0.2 [facility] Comment on above: Performed By: #### 2 [id number] #### [facility] [address] [place] [address] Eosinophils (Bld) [#/Vol] 0.1 E9/L Normal 0.0-0.5 [facility] Comment on above: Performed By: #### 2 [id number] #### [facility] [address] [place] [address] Eosinophils/100 WBC (Bld) 0.9 % Normal 0.0-8.0 [facility] Comment on above: Performed By: #### 2 [id number] #### [facility] [address] [place] [address] Erythrocyte distribution width (RBC) [Ratio] 13.3 % Normal 10.9-14.2 [facility] Comment on above: Performed By: #### 2 [id number] #### [facility] [address] [place] [address] Hematocrit (Bld) [Volume fraction] 40.5 % Normal 37.7-49.0 [facility] Comment on above: Performed By: #### 2 [id number] #### [facility] [address] [place] [address] Hemoglobin (Bld) [Mass/Vol] 13.9 g/dL Normal 13.5-17.5 [facility] Comment on above: Performed By: #### 2 [id number] #### [facility] [address] [place] [address] Lymphocytes (Bld) [#/Vol] 0.9 E9/L Low 1.0-4.0 [facility] Comment on above: Performed By: #### 2 [id number] #### [facility] [address] [place] [address] Lymphocytes/100 WBC (Bld) 10.1 % Low 14.0-50.0 [facility] Comment on above: Performed By: #### 2 [id number] #### [facility] [address] [place] [address] MCH (RBC) [Entitic mass] 31.4 pg Normal 27.0-34.0 [facility] Comment on above: Performed By: #### 2 [id number] #### [facility] [address] [place] [address] MCHC (RBC) [Mass/Vol] 34.3 g/dL Normal 31.4-36.0 [facility] Comment on above: Performed By: #### 2 [id number] #### [facility] [address] [place] [address] MCV (RBC) [Entitic vol] 91.5 fL Normal 80.0-100.0 [facility] Comment on above: Performed By: #### 2 [id number] #### [facility] [address] [place] [address] Monocytes (Bld) [#/Vol] 0.9 E9/L Normal 0.2-1.0 [facility] Comment on above: Performed By: #### 2 [id number] #### [facility] [address] [place] [address] Neutrophils (Bld) [#/Vol] 7.0 E9/L Normal 2.0-7.5 [facility] Comment on above: Performed By: #### 2 [id number] #### [facility] [address] [place] [address] Neutrophils/100 WBC (Bld) 78.2 % High 36.0-75.0 [facility] Comment on above: Performed By: #### 2 [id number] #### [facility] [address] [place] [address] Platelet mean volume (Bld) [Entitic vol] 9.1 fL Normal 6.4-10.8 [facility] Comment on above: Performed By: #### 2 [id number] #### [facility] [address] [place] [address] Platelets (Bld) [#/Vol] 334.0 E9/L Normal 150.0-500.0 [facility] Comment on above: Performed By: #### 2 [id number] #### [facility] [address] [place] [address] RBC (Bld) [#/Vol] 4.4 E12/L Normal 4.3-5.9 [facility] Comment on above: Performed By: #### 2 [id number] #### [facility] [address] [place] [address] [place] [address] WBC corrected for nucl RBC Auto (Bld) [#/Vol] 9.0 E9/L Normal 4.0-11.0 [facility] Comment on above: Performed By: #### 2 [id number] #### [facility] [address] [place] [address] CHEMISTRYOrdered By: SYSTEM SYSTEM on 08-24-2024 Anion [...] AST RIGHTon 08-24-2024 Radiology Study observation (narrative) [facility] HEMATOLOGYOrdered By: SYSTEM SYSTEM on 08-24-2024 Basophils/100 [...] Healthcare BILIRUBIN:PRTHR:PT:UR INE:ORD:TEST STRIP.AUTOMATED Negative Negative mg/dL [facility] EPITHELIAL CELLS.SQUAMOUS:NARIC: PT:URINE SED:QN:AUTOMATED COUNT 0-2 CD:[id number] 3 [facility] CLARITY:TYPE:PT:URINE :NOM: Clear Clear [facility] CLASS:TYPE:PT:URINE COLLECTION METHOD:NOM:* Clean Catch [facility] COLOR:TYPE:PT:URINE:N OM:AUTO Yellow Yellow [facility] Comment on above: Microscopic readings are only performed on those samples that meet specific criteria set forth by [facility]. [place] PH:LSCNC:PT:URINE:QN: TEST STRIP 6.0 5.0 - 9.0 [facility] SPECIFIC GRAVITY:RDEN:PT:URINE :QN:TEST STRIP 1.014 1.005 - 1.030 [facility] GLUCOSE:PRTHR:PT:URIN E:ORD:TEST STRIP Negative Negative mg/dL [facility] HEMOGLOBIN:MCNC:PT:UR INE:SEMIQN:TEST STRIP.AUTOMATED Negative Negative mg/dL [facility] HYALINE CASTS:PRTHR:PT:URINE SED:ORD:MICROSCOPY.LI GHT 0-3 [facility] Interpretation and review of laboratory results Abnormal [facility] KETONES:PRTHR:PT:URIN E:ORD:TEST STRIP.AUTOMATED Negative Negative mg/dL [facility] LEUKOCYTE ESTERASE:PRTHR:PT:URI NE:ORD:TEST STRIP.AUTOMATED 25 Briseyda/uL Negative CD:[id number] [facility] LEUKOCYTES:NARIC:PT:U RINE SED:QN:AUTOMATED COUNT 6-[address] [facility] MUCUS:PRTHR:PT:URINE: ORD:AUTOMATED Negative Negative CD:[id number] [address] [facility] NITRITE:PRTHR:PT:URIN E:ORD:TEST STRIP.AUTOMATED Negative Negative mg/dL [facility] PROTEIN:PRTHR:PT:URIN E:ORD:TEST STRIP Trace Abnormal Negative mg/dL [facility] UROBILINOGEN:MCNC:PT: URINE:SEMIQN:TEST STRIP 2 mg/dL Abnormal Negative mg/dL [facility] Original Ordering Provider: DO Angus Darnell [facility] UA with Cult Rflxon 02-24-20 25 Bacteria Auto Ql (U) Trace Normal Trace Fish er [facility] Comment on above: Performed By: #### 4 [id number] #### [facility] [address] [place] [address] Bilirubin Ql (U) Negative Normal Negative [facility] Comment on above: Performed By: #### 4 [id number] #### [facility] [address] [place] [address] Clarity (U) Clear Normal Clear [facility] Comment on above: Performed By: #### 4 [id number] #### [facility] [address] [place] [address] Color (U) Yellow Normal Yellow [facility] Comment on above: Result Comment: Micr oscopic readings are only performed on those samples that meet specific criteria set forth by [facility]. Performed By: #### 4 [id number] #### [facility] [address] [place] [address] Epithelial cells.squamous Auto (Urine sed) [#/Area] 0-2 Invalid Interpretation Code [facility] Comment on above: Performed By: #### 4 [id number] #### [facility] [address] [place] [address] Glucose Ql (U) Negative Normal Negative [facility] Comment on above: Performed By: #### 4 [id number] #### [facility] [address] [place] [address] Hemoglobin Auto test strip (U) [Mass/Vol] Negative Normal Negative [facility] Comment on above: Performed By: #### 4 [id number] #### [facility] [address] [place] [address] Hyaline casts LM Ql (Urine sed) 0-3 Normal 0-3 [facility] Comment on above: Performed By: #### 4 [id number] #### [facility] [address] [place] [address] Ketones Auto test strip Ql (U) Negative Normal Negative [facility] Comment on above: Performed By: #### 4 [id number] #### [facility] [address] [place] [address] Leukocyte esterase Auto test strip Ql (U) 25 Briseyda/uL Normal Negative [facility] Comment on above: Performed By: #### 4 [id number] #### [facility] [address] [place] [address] Mucus Auto Ql (U) Negative Normal Negative [facility] Comment on above: Performed By: #### 4 [id number] #### [facility] [address] [place] [address] Nitrite Auto test strip Ql (U) Negative Normal Negative [facility] Comment on above: Performed By: #### 4 [id number] #### [facility] [address] [place] [address] pH (U) 6.0 [pH] Invalid Interpretation Code 5.0-9.0 [facility] Comment on above: Performed By: #### 4 [id number] #### [facility] [address] [place] [address] Protein Ql (U) Trace Abnormal Negative [facility] Comment on above: Performed By: #### 4 [id number] #### [facility] [address] [place] [address] Specific gravity (U) [Rel density] 1.014 Invalid Interpretation Code 1.005-1.030 [facility] Comment on above: Performed By: #### 4 [id number] #### [facility] [address] [place] [address] Urobilinogen (U) [Mass/Vol] 2 mg/dL Abnormal Negative [facility] Comment on above: Performed By: #### 4 [id number] #### [facility] [address] [place] [address] WBC Auto (Urine sed) [#/Area] 6-15 Abnormal 0-5 [facility] Comment on above: Performed By: #### 4 [id number] #### [facility] [address] [place] [address] Type of Urine collection method Clean Catch Normal [facility] Comment on above: Performed By: #### 4 [id number] #### [facility] [address] [place] [address] URINALYSISOrdered By: SYSTEM SYSTEM on 08-24-2024 Bacteria [...] that meet specific criteria set forth by [facility]. Epithelial cells.squamous Auto (Urine sed) [...] 6-15 graded/HPF Invalid Interpretation Code 0-5graded/HP F [place] UA Auto SS URINALYSISOrdered By: Anastacia Ady on 08-24-2024 UA Spec Desc Clean Catch (08/24/24 12:45 PM) Normal [place] UA Auto SS eGFRon 08-24-2024 eGFR 64 mL/min/1.73 m2 Normal >=59 [facility] Comment on above: Performed By: #### 1 [id number] #### [facility] [address] [place] [address] No Panel Informationon 05-25 Rowan Bojorquez MA [...] to verify the correct patient, procedure, equipment, learning support resource room teacher and site/side marked as required. Patient was prepped and draped in the usual sterile fashion. [facility] [employer] XR Knee - left 1 or 2 [...] subluxation of the right patella is noted [facility] [employer] Radiology Study observation (narrative) [facility] CT LUNG CANCER SCREENINGon 0 01-14-2022 CT [...] LDCT in 12 months. Electronically authenticated by: SIMARN MATIAS Date: 2022-01-14 09:21 Normal [facility] CHEMISTRYOrdered By: SYSTEM SYSTEM on 01-03-2022 Anion gap [Moles/Vol] 11 mmol/L Normal 6 - 16 mEq/L [facility] [place]isol Calcium [Mass/Vol] 8.9 mg/dL Normal 8.9 [...] Chino Mcqueen MD 08/01/20 Final result Normal [facility] No acute abnormality of the cervical spine. Multilevel degenerative changes. [facility]- [place], [place] Claudio, [employer] Incoming Radiant Results From [employer] - 08/01/2020 1:22 PM EST EXAMINATION: CT [...] of the cervical spine. Multilevel degenerative changes. [facility] EXAMINATION: CT OF THE CERVICAL SPINE WITHOUT [...] There is no prevertebral soft tissue swelling. [employer], HEMINGWAY CT HEAD WO CONTRASTon 2020 CT HEAD [...] Randolph Roman MD 08/01/20 Final result Normal [facility] Cl[employer], [employer] Incoming Radiant Results From [employer] - 08/01/2020 1:20 PM EST EXAMINATION: CT [...] fossa. 2. No convincing acute intracranial abnormality. [facility]- [place], [place] EXAMINATION: CT OF THE HEAD WITHOUT [...] of the visualized skull or soft tissues. [place], [place] 1. Streak artifact from dental amalgam limits evaluation of the posterior fossa. 2. No convincing acute intracranial abnormality. [place] CT THORACIC SPINE WO CONTRAS Ton [...] Panfilo Middleton MD 08/01/20 Final result Normal [facility] Cl[facility], [employer] Incoming Radiant Results From [employer] - 08/01/2020 1:29 PM EST EXAMINATION: CT [...] fracture or malalignment of the thoracic spine. [employer] EXAMINATION: CT OF THE THORACIC SPINE WITHOUT [...] SOFT TISSUES: No paraspinal mass is seen. [facility] No acute fracture or malalignment of the thoracic spine. [employer] OR XR ELBOW LEFT (MIN 3 VIEWS)o n [...] Randolph Roman MD 08/01/20 Final result Normal [facility] Cl[employer], [employer] Incoming Radiant Results [...] the left elbow. 2. Minimal degenerative changes. [place] EXAMINATION: THREE XRAY VIEWS OF THE [...] The soft tissues demonstrate no acute abnormality. [facility] [place] 1. No acute osseous abnormality identified of the left elbow. 2. Minimal degenerative changes. [place], [place] Vital Signs Date Time Vital Sign Value Performing Clinician Facility 09-01-2024 09:49-0500 Body height 185.42 cm [facility] 09-01-2024 09:49-0500 Body mass index (BMI) [Ratio] 25.1 kg/m2 [facility] 09-01-2024 09:49-0500 Body weight 86.35 kg [facility] 09-01-2024 09:49-0500 Diastolic blood pressure 73 mm[Hg] [facility] 09-01-2024 09:49-0500 Heart rate 66 /min [facility] 09-01-2024 09:49-0500 Systolic blood pressure 169 mm[Hg] [facility] 08-24-2024 12:42-0500 Diastolic blood pressure 80 mm[Hg] Angus Darnell [facility] 08-24-2024 12:42-0500 Heart rate 76 /min Angus Darnell [facility] 08-24-2024 12:42-0500 Mean blood pressure 103 mm[Hg] Angus Darnell [facility] 08-24-2024 12:42-0500 Systolic blood pressure 149 mm[Hg] Angus Darnell [facility] 08-24-2024 12:41-0500 Heart rate 60 /min Angus Darnell [facility] 08-24-2024 12:41-0500 SaO2% (BldA) [Mass fraction] 99 % Angus Darnell [facility] 08-24-2024 12:41-0500 Body temperature 98.24 [degF] Angus Darnell [facility] 08-24-2024 12:41-0500 Blood Pressure Location Angus Darnell [facility] 08-24-2024 12:41-0500 Diastolic blood pressure 70 mm[Hg] Angus Darnell [facility] 08-24-2024 12:41-0500 Mean blood pressure 97 mm[Hg] Angus Darnell [facility] 08-24-2024 12:41-0500 Systolic blood pressure 151 mm[Hg] Angus Darnell [facility] 08-24-2024 12:40-0500 Respiratory rate 16 /min Angus Darnell [facility] 08-06-2024 10:10-0500 Body height 180.3 cm Angus Darnell DO Work Phone: [facility] 08-06-2024 10:10-0500 Body mass index (BMI) [Ratio] 26.78 kg/m2 Angus Darnell DO Work Phone: [facility] 08-06-2024 10:10-0500 Body temperature 97.5 [degF] Angus Darnell DO Work Phone: [facility] 08-06-2024 10:10-0500 Body weight 87.09 kg Angus Darnell DO Work Phone: [facility] 05-25-2024 15:41-0500 Body height 181.6 cm [facility] Work Phone: [facility] 05-25-2024 15:41-0500 Body mass index (BMI) [Ratio] 26.41 kg/m2 [facility] Work Phone: [facility] 05-25-2024 15:41-0500 Body weight 87.09 kg [facility] Work Phone: [facility] 01-30-2024 10:58-0400 Body height 185.42 cm [facility] 01-30-2024 10:58-0400 Body mass index (BMI) [Ratio] 24.6 kg/m2 [facility] 01-30-2024 10:58-0400 Body weight 84.82 kg [facility] 01-30-2024 10:58-0400 Diastolic blood pressure 68 mm[Hg] [facility] 01-30-2024 10:58-0400 Heart rate 57 /min [facility] 01-30-2024 10:58-0400 Systolic blood pressure 149 mm[Hg] [facility] 09-19-2023 08:30-0400 Body height 185.42 cm [facility] 09-19-2023 08:30-0400 Body mass index (BMI) [Ratio] 25.6 kg/m2 [facility] 09-19-2023 08:30-0400 Body weight 87.99 kg [facility] 09-19-2023 08:30-0400 Diastolic blood pressure 72 mm[Hg] [facility] 09-19-2023 08:30-0400 Heart rate 57 /min [facility] 09-19-2023 08:30-0400 Systolic blood pressure 162 mm[Hg] [facility] 06-06-2023 10:15-0500 Body height 185.42 cm Adriana Mejia Other [facility] Other 06-06-2023 10:15-0500 Body mass index (BMI) [Ratio] 25.54 kg/m2 Adriana Mejia Other [facility] Other 06-06-2023 10:15-0500 Body weight 87.82 kg Adriana Mejia Other [facility] Other 06-06-2023 10:15-0500 Diastolic blood pressure 70 mm[Hg] Adriana Mejia Other [facility] Other 06-06-2023 10:15-0500 Systolic blood pressure 159 mm[Hg] Adriana Mejia Other [facility] Other 04-19-2023 09:30-0400 Body height 185.42 cm Adriana Mejia Other [facility] Other 04-19-2023 09:30-0400 Body mass index (BMI) [Ratio] 24.7 kg/m2 Adriana Mejia Other [facility] Other 04-19-2023 09:30-0400 Body weight 84.91 kg Adriana Mejia Other [facility] Other 04-19-2023 09:30-0400 Diastolic blood pressure 77 mm[Hg] Adriana Mejia Other [facility] Other 04-19-2023 09:30-0400 Systolic blood pressure 159 mm[Hg] Adriana Mejia Other [facility] Other 01-06-2022 07:59-0400 Body temperature 97.7 [degF] Kirill Simon [facility] 01-06-2022 07:59-0400 Diastolic blood pressure 88 mm[Hg] Kirill Simon [facility] 01-06-2022 07:59-0400 Heart rate 60 /min Kirill Alfred [facility] 01-06-2022 07:59-0400 Respiratory rate 15 /min Kirill Simon [facility] 01-06-2022 07:59-0400 SaO2% (BldA) [Mass fraction] 98 % Kirill Alfred [facility] 01-06-2022 07:59-0400 Systolic blood pressure 202 mm[Hg] Kirill Alfred [facility] 08-01-2020 13:03-0500 Body Temperature 97.59 [degF] [place], [place] 08-01-2020 12:35-0500 BP Diastolic 73 mm[Hg] [place], [place] 08-01-2020 12:35-0500 BP Systolic 149 mm[Hg] [place] 08-01-2020 12:35-0500 Pulse (Heart Rate) 76 /min [place], [place] 08-01-2020 12:35-0500 Pulse Oximetry 99 % [place], [place] 08-01-2020 12:35-0500 Respiratory Rate 18 /min [place], [place] Encounters Encounter Date Encounter Type Care Provider Facility Start: 09-01-2024 End: 09-01-2024 ambulatory [facility] Work Phone: Start: 09-01-2024 End: 09-01-2024 Patient encounter procedure Critical Access Hospital Physician [facility] Work Phone: Start: 08-24-2024 End: 08-26-2024 Clinisync Result Encounter Angus Darnell DO Work Phone: [facility] Unsolicited Start: 08-24-2024 End: 08-26-2024 Clinisync Result Encounter Angus Darnell DO Work Phone: [facility] Unsolicited Start: 08-24-2024 End: 08-24-2024 ambulatory DO Angus Giuliano Mann Facility:[place] Start: 08-24-2024 End: 08-24-2024 Patient encounter procedure Angus Nobles Mann [facility] Start: 08-06-2024 End: 08-06-2024 Bamboo flowsheet [...] 07-13-2024 End: 07-13-2024 ambulatory Brett Mantilla MD Facility:[facility] Start: 05-25-2024 End: 05-25-2024 Patient encounter procedure Barbara TIWARI Work Phone: [facility] Comment on above: 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); Acute pain of left knee; Osteoarthritis of patellofemoral joints of both knees Start: 05-25-2024 End: 05-25-2024 ambulatory BARBARA BLAND Not Available Start: 05-25-2024 End: 05-25-2024 ambulatory BARBARA BLAND Not Available Start: 01-30-2024 End: 01-30-2024 ambulatory [facility] Work Phone: Start: 01-30-2024 End: 01-30-2024 Patient encounter procedure Critical Access Hospital Physician [facility] Work Phone: Start: 12-02-2023 End: 12-02-2023 ambulatory Andmraio albertous Franky Steeleitis [facility] Start: 11-11-2023 End: 11-11-2023 ambulatory Andrius Vytautas Giedraitis Facility:[facility] Start: 10-28-2023 End: 10-28-2023 ambulatory Andrius Vytautas Roseannedraitis [facility] Start: 10-14-2023 End: 10-14-2023 ambulatory Andrius Trevorytautas Cedricitis Facility:[facility] Start: 09-19-2023 End: 09-19-2023 ambulatory [facility] Work Phone: Start: 09-19-2023 End: 09-19-2023 Patient encounter procedure [facility] Work Phone: Start: 06-06-2023 End: 06-06-2023 ambulatory Adriana Mejia Other [facility] Other Start: 06-06-2023 Office outpatient vi sit 15 minutes Adriana Mejia [facility] Start: 04-25-2023 End: 04-25-2023 ambulatory Adriana Mejia Other [facility] Other Start: 04-25-2023 Telephone encounter Adriana Mejia [facility] Start: 04-19-2023 End: 04-19-2023 ambulatory Adriana Mejia Other [facility] Other Start: 04-19-2023 Patient encounter procedure Adriana Mejia [facility] Start: 01-13-2022 End: 01-14-[address] ADRIANA MEJIA Facility: Start: 01-06-2022 End: 01-06-2022 Emergency department patient visit Kirill Simon [facility] Start: 01-06-2022 End: 01-06-[address] LENA MARIE Facility:[facility] Start: 01-03-2022 End: 01-03-2022 Patient encounter procedure ADRIANA JACKIE [facility] Start: 10-09-2021 End: 10-09-2021 Patient encounter procedure Beth Fischerd [facility] Start: 08-01-2020 End: 08-01-2020 Emergency department patient visit [facility] Start: 08-01-2020 End: 08-01-2020 Emergency department patient visit Tomialyssia Estrella Work Phone: [facility] ED Comment on above: Closed head injury, [...] - Td) DTaP/Tdap/Td vaccine (2 - Td) [place] Start: 09-24-2024 End: 09-24-2024 Patient encounter procedure 09/24/2024 9:00 AM EDT Office Visit [facility] [address] [place] [address] [facility] [place] [address] Angus Darnell DO [address] [place], [place] [id number] [facility] Start: 08-24-2024 End: 08-24-2025 Urinalysis complete panel - Urine Urinalysis with reflex microscopic Lab Routine Osteoarthritis of patellofemoral joints of both knees Expected: 08/24/2024 (Approximate), Expires: 08/24/2025 [facility] Work Phone: Comment on above: Expected: 08/24/2024 (Approximate), Expires: 08/24/2025 Start: 08-06-2024 End: 08-06-2024 Patient encounter procedure 08/06/2024 10:30 AM EST Office Visit [facility] [address] [facility] [place] [address] Angus Darnell DO [address] [place] [address] Arrived [facility] Comment on above: Arrived Start: 03-01-2024 Influenza vaccination Influenza Vacc ine (#1) [facility] Start: 04-27-2020 Pneumococcal Vaccine : 65+ Years (2 of 2 - PPSV23 or PCV20) Pneumococcal Vaccine: 65+ Years (2 of 2 - PPSV23 or PCV20) [facility] Start: 03-01-2020 Influenza vaccination Flu vaccine (# 1) [place] Start: 2018 Pneumococcal 65+ yea rs Vaccine (1 of 1 - PPSV23) Pneumococcal 65+ years Vaccine (1 of 1 - PPSV23) [place] Start: 2018 Pneumococcal Vaccine : 65+ Years (1 of 1 - PCV) Pneumococcal Vaccine: 65+ Years (1 of 1 - PCV) [facility] Start: 2003 Screening for malign ant neoplasm of colon Colon cancer screen colonoscopy [place], [place] Start: 2003 Shingles Vaccine (1 of 2) Shingles Vaccine (1 of 2) [place] Start: 1993 Lipid panel Lipid screen [place], [place] Start: 1953 Abdominal aortic aneurysm screening AAA screen [place], [place] Start: 1953 Hepatitis C screening Hepatitis C sc reen [place], [place] Start: 1953 Screening for malign ant neoplasm of colon [facility] CT Chest WO contrast [facility] XR Lumbar spine 2 or 3 Views [facility] Immunizations Immunization Date Immunization Notes Care Provider Fa cili 04-19-2023 influenza virus vaccine, unspecified formulation [facility] 04-19-2023 influenza, high dose seasonal, preservative-free Adriana Mejia Other [facility] Other 09-30-2020 COVID-19, mRNA, LNP- S, PF, 30 mcg/0.3 mL dose; Translations: [Pfizer-BioNTech COVID-19 Vaccine] Beth Bradley [facility] Comment on above: Reason for Medicatio n: Prophylaxis 09-09-2020 COVID-19, mRNA, LNP- S, PF, 30 mcg/0.3 mL dose; Translations: [Pfizer-BioNTech COVID-19 Vaccine] Beth Bradley [facility] Comment on above: Reason for Medicatio n: Prophylaxis 12-05-2019 tetanus toxoid, reduced diphtheria toxoid, and acellular pertussis vaccine, adsorbed; Translations: [Adacel (Tdap)] Beth Fischerd [facility] 04-27-2019 influenza virus vaccine, split virus (incl. purified surface antigen) Adriana Mejia Other [facility] Other 04-27-2019 influenza virus vaccine, unspecified formulation [facility] 04-27-2019 pneumococcal conjuga te vaccine, 13 valent Adriana Mejia Other [facility] 07-08-2017 diphtheria, tetanus toxoids and acellular pertussis vaccine, unspecified formulation Adriana Mejia Other [facility] 02-05-2017 influenza virus vaccine, unspecified formulation Angus Mann KARIMI Work Phone: [facility] Payers Date Payer Category Payer Private Health Insurance A[employer] Md mber [id number] 2023 Unknown 2018 Medicare [id number] 1959 Medicare [id number] 1959 Private Health Insurance [id number] 1953 Unknown [id number] [id number] .175 1953 Unknown [id number] [id number] .593 1953 Unknown [id number] 2.16.840.1.390675.3.579.2 .593 1953 Unknown [id number] [id number] .196 1953 Unknown [id number] [id number] .196 1953 Unknown [id number] 2.16.840.1.391086.3.579.2 .196 1953 Unknown [id number] 2.16.840.1.394321.3.579.2 .196 1953 Unknown [id number] 2.16.840.1.303456.3.579.2 .196 1953 Unknown [id number] 2.16.840.1.467283.3.579.2 .1259 1953 Unknown [id number] 2.16.840.1.869842.3.579.2 .1259 1953 Unknown [id number] 2.16.840.1.495495.3.579.2 .1259 1953 Unknown [id number] 2.16.840.1.197300.3.579.2 .727 Social History Date Type Detail Facility Start: 08-01-2020 End: 05-25-2024 Tobacco smoking status NHIS Current every day smoker [place] History of tobacco use Cigarette Smoker [place] Start: 08-01-2020 End: 05-25-2024 Tobacco use and exposure Never used [place] Start: 08-01-2020 End: 08-06-2024 Alcohol intake Current drinker of alcohol (finding) [place] Start: 08-01-2020 Alcohol Comment daily 3-4 beer s per day [place] Start: 1955 Sex Assigned At Not on file M [facility] [place], [place] Tobacco [facility] Comment on above: smokes 1 ppd. Start: 05-25-2024 End: 08-06-2024 Sex Assigned At [facility] Start: 1955 Sex Assigned At Male F [facility] Start: 05-25-2024 End: 08-06-2024 History of Social function [facility] Start: 05-25-2024 Alcohol Comment Daily [facility] Tobacco smoking status No Smokin g Status Entered [facility] Work Phone: Start: 09-01-2024 Sex Male (finding) [facility] Functional Status Date Assessment Result Facility 08-24-2024 Functional Status No [facility] 01-06-2022 Functional Status N/A [facility] Clinical Notes 10-04-2021 to 08-06-2024 Angus Darnell DO - 08/06/2024 10:30 AM Sara Bojorquez MA - 05/25/2024 3:45 PM ESTToTE Steele - 05/25/2024 3:45 PM ESTPatient Instructions Note Date & Type Note Facility 08-06-2024 History of Presen t illness Narrative Images from the original note were not included. [facility] Mannie Giuliano Antoine is a 69 y.o. male who presents for Pain of the Left Knee HPI: History of Present Illness The patient is a 69-year-old male who presents as a new patient to my practice today for his left knee. He was previously under the care of our physician office assistant receptionist, Barbara Bland. He has tried meloxicam, Robaxin, [...] with a right total knee arthroplasty with [employer] robotic arm assistance. The [employer] platform will be utilized. Surgery will be [...] note was created using voice recognition through [place] artificial intelligence. documented in this encounter [facility] 05-25-2024 History of Presen t illness Narrative [...] to verify the correct patient, procedure, equipment, learning support resource room teacher and site/side marked as required. Patient was [...] lateral subluxation of the right patella with [id number]-[id number]-yhcb changes and advancing arthritis with no subluxation of the left patellofemoral joint with fairly well-preserved mediolateral compartments seen on x-ray from [facility] as well as weight-bearing films here in [...] knee. TE Vera documented in this encounter [facility] 05-25-2024 Instructions TE Vera - 05/25/2024 3:45 [...] support the knee. documented in this encounter [facility] 06-06-2023 Evaluation note Encounter Date Diagnosis Assessment Notes May, Removal of michelle (ICD-10 - Z48.02) Pt tolerated staple removal well. Pt denies LOC or fall without reason. He slipped in slippers on an icy patio with dog outside. Steristrips applied.. Keep area clean. [facility] Other 10-20-2023 Evaluation note* Encounter Date Diagnosis [...] to quit smoking. Agrees to LDCT at [facility] Other 07-09-2022 Evaluation + Plan noteExtracted from: Title:ED Note Author:Ramon Gauthier PA-C te:01/06/22 Otitis externa (H60.90: Unsp ecified otitis externa, unspecified ear) Orders: ciprofloxacin-dexamethasone otic, 4 drop(s), Ear-Right, BID for 7 day(s), 10 mL, Refill(s) 0 [facility]07-09-2022 Hospital Discharge instructions Patient Education 01/06/2022 [...] antibiotic even if your condition improves. Take oqyp-mwa-buixere and prescription medicines only as told by [...] 06/17/2006 Document Revised: 11/21/2018 Document Reviewed: 11/21/2018 [employer] Patient Education 2020 [employer]. 01/06/2022 08:25:56 Ear Drops, Adult Ear Drops, [...] 06/11/2002 Document Revised: 05/30/2018 Document Reviewed: 06/20/2017 [employer] Patient Education 2020 [employer] Follow Up Care 01/06/2022 07:58:43 With:Elizabeth Veliz Address: [address] [place] [address], [address] [place] [address]- Business (1) When:01/09/2022 08:19:10 With:ADRIANA MEJIA Address: [address] [place] [id number] Business (1) When:01/09/2022 08:19:07 [facility]04-06-2022 Hospital Discharge instructions Follow Up Care 10/04/2021 10:34:18 With:Kirk MOREAU, MANAV Vincent SUR Address: [address] [place] [address] [place] [address]- When:1 year [facility] note No data available for this section [facility] note Future Appointments Appointment Date:09/09/2024 07:30:00 AM Scheduled Provider: Location:[facility] Appointment Type:Surgery FT Diagnostic Tests Pending * Urine Culture 08/24/24 [facility] Evaluation [facility]No [facility] [employer] Other Evaluation note* Diagnosis Onset Date Resolution Status Lumbar pain with radiation down both legs acute [facility] Work Phone: Evaluation noteNo assessment information available [facility] Work Phone: Evaluation note* Diagnosis Localized osteoarthritis of left knee- Primary Acute pain of left knee Osteoarthritis of patellofemoral joints of both knees documented in this encounter [facility] Healthcare[facility]* Diagnosis Osteoarthritis of patellofemoral joints of both knees documented in this encounter [facility] HealthcareEvaluation note* Diagnosis Onset Date Resolution Status Admit Date Lung nodule seen on imaging study ac nancy September 01, 2024 9:35am [facility] Work Phone: History general Narrative - Reported* Type Description Date Medical History Depression, controlled Medical History Generalized osteoarthrosis Medical History Transient insomnia Medical History Obstructive sleep apnea Surgical History Hernia Repair Surgical History Left ankle surgery - with plate s and screws 2014 Hospitalization History SEE SURGICAL HX [facility] [employer] Other Hospital Discharge instructions No data available for this section [facility] No data available for this section [facility] Discharge Instructions * Instructions* George Alcala, - 08/01/2020 [address] for visiting [facility] Emergency Department. You need to call Adriana Mejia MD to make an appointment as directed for follow up. Should you have any questions regarding your care or further treatment, please call [facility] Emergency Department at [phone]. Take any medications as prescribed, if given [...] Everywhere. * Head Injury: Closed: General Info (Romansh) documented in this encounter Assessments Diagnosis Closed [...] section and content) DATE CREATED AUTHOR 08/02/2020 [facility] DATE CREATED AUTHOR AUTHOR'S ORGANIZ ATION 01/17/2022 [facility] DATE CREATED AUTHOR AUTHOR'S ORGANIZ ATION 07/22/2024 [facility] DATE CREATED AUTHOR AUTHOR'S ORGANIZ ATION 08/08/2024 [facility] DATE CREATED AUTHOR AUTHOR'S ORGANIZ ATION 08/25/2024 [facility] DATE CREATED AUTHOR AUTHOR'S ORGANIZ ATION 08/26/2024 [facility] DATE CREATED AUTHOR AUTHOR'S ORGANIZ ATION 09/02/2024 [facility] Care Team (unrecognized sect ion [...] January 30, 2024 End: January 30, 2024 Entry Level Mechanical Engineer Relationship Specialty Start Date End Date Adriana Mejia MD [address] [place] [address] PCP - General Family Medicine 08/06/24 Entry Level Mechanical Engineer Relationship Specialty Start Date End Date Adriana Mejia MD [address] [place] [address] PCP - General Family Medicine 08/06/24 Team [...] BE BASED ON THE PRIMARY CLINICAL RECORDS. [facility] [employer] [facility]. provides no warranty or guarantee of the accuracy or completeness of information in this document.
--- NOTE | 2024-09-07 12:42 | P.CN_ITS ---
Consult Note: HPI Data of Consult Patient: known to practice within the last 3 years Consult date: 09/07/24 Requesting Physician: Brett Mantilla MD Primary Care Provider: Adriana Downs MD Consult Narrative Reason for consult: low back pain Narrative: 69yom who presents for assessment. continues to have significant back pain that limits activity. imaging shows multilevel stenosis, facet arthropathy, possible arachnoiditis. uses baclofen, mobic as needed. denies adverse med side effects. has upcoming right knee tka in 2 days. cc:: CC: Brett Mantilla MD Review of Systems ROS Status of ROS 10 or more systems reviewed and unremark able except as noted in history and below [facility] Medical History Low back pain ?M54.50 - Low back pain, unspecified (ICD-10) CPAP (continuous positive airway pressure) dependence ?Z99.89 - Dependence on other enabling machines and devices (ICD-10) Sleep apnea ?G47.30 - Sleep apnea, unspecified (ICD-10) Smoker ?F17.200 - Nicotine dependence, unspecified, uncomplicated (ICD-10) Hypertension ?I10 - Essential (primary) hypertension (ICD-10) Surgical History S/P inguinal hernia repair ?Z98.890 - Other specified postprocedural states (ICD-10) ?Z87.19 - Personal history of other diseases of the digestive system (ICD-10) History of surgery on lower extremity ?Z98.890 - Other specified postprocedural states (ICD-10) Social History Smoking status: Never smoker Little interest or pleasure in doing things: not at all Feeling down, depressed, or hopeless: not at all Meds Home Medications and Allergies Home Medications ?Medication ?Instructions ?Recorded ?Confirmed ?Type escitalopram oxalate 10 mg tablet 10 mg PO DAILY 10/14/23 07/13/24 History lamotrigine 25 mg tablet 25 mg PO DAILY 10/14/23 07/13/24 History losartan 25 mg tablet 50 mg PO DAILY 10/14/23 07/13/24 History meloxicam 15 mg tablet 15 mg PO DAILY 10/14/23 07/13/24 History baclofen 10 mg tablet 10 mg PO TID PRN muscle spasm #90 08/20/24 Rx tabs Allergies Allergy/AdvReac Type Severity Reaction Status Date / Time No Known Drug Allergies Allergy Verified 07/13/24 09:33 Exam Narrative Exam Narrative: Psych-alert and oriented x 3. Attentive and appropriate, constitutionally normal, displays normal mood and affect per situation.? There are no obvious deficits in memory, reasoning, or intellect.? Skin-no obvious rashes, bruising, erythema noted to the patient's area of pain. Extremities- extremities are warm with minimal edema and palpable pulses. Lumbar-no significant tenderness to palpation noted in the lumbar spine and paraspinal musculature.? Pain is elicited with extension, and lateral rotation of the lumbar spine. Range of motion is slightly diminished with these motions due to pain. Coordination remains intact.? Gait remains non-antalgic. Assessment and Plan Assessment and Plan (1) Lumbar stenosis with neurogenic claudication: (2) Lumbar spondylosis: Plan 69yom who presents for assessment. failed conservative measures. imaging reviewed, as noted. given multiple areas of issue, including concern for arachnoiditis, will refer to ns for evaluation. he is in agreement. meds reviewed, no changes. follow up after evaluation.
== END 2024-09-07 11:34 | disposition home or self-care (01) ==
LOC: PM 11:33
PROVIDERS: PCP Family Medicine; Visit Provider Anesthesiology
DX: M48.062 Spinal stenosis, lumbar region with neurogenic claudication (principal); M47.816 Spondylosis without myelopathy or radiculopathy, lumbar region
CPT/HCPCS: G0463

== ENCOUNTER 2024-11-03 13:27 | Outpatient (OUT) | payer MEDICARE, SELFPAY ==
--- NOTE | 2024-11-03 13:30 | CT_ITS ---
The [address] [address] Patient Name: ROSALIO JARQUIN MRN: [id number] date: 1955 Sex: M Assigned Patient Location: CT Current Patient Location: CT Accession/Order Number: [id number] Exam Date: 11/03/2024 14:03 Report Date: 11/03/2024 14:08 At the request of: TARA SANTACRUZ DO Procedure: CT chest wo con CT CHEST WITHOUT IV CONTRAST: CLINICAL HISTORY: Nonspecific Abnormal Lung Field COMPARISON: CT chest 09/03/2024 TECHNIQUE: Spiral images were obtained through the chest without IV contrast. This CT exam was performed using one or more following dose reduction techniques: Automated exposure control, adjustment of the mA and/or kV according to patient size, or use of iterative reconstruction technique. FINDINGS: Mediastinum:Thoracic aorta appears normal in caliber. Pulmonary trunk appears nondilated. No pleural effusion. Partially calcified mediastinal and right hilar lymph nodes. The esophagus is grossly unremarkable. Lungs:No consolidation pneumothorax or pleural effusion. Interval improvement of the tree-in-bud nodularity since the prior study with residual tree-in-bud nodularity still seen. Emphysema with biapical scarring. Abd:No acute findings. Soft tissues/Bones: No acute findings. Osseous structures demonstrate degenerative change. CT/CT chest wo con IMPRESSION: Interval improvement of the tree-in-bud nodularity since the prior study. Findings suggest response to therapy. CT follow-up is recommended to ensure complete resolution. Impression dictated by: Pietro Hernandez Jr., D.O. 11/03/2024 2:08 PM Dictation Location: [place] [address] Electronically authenticated by: [id number] Y Date: 11/03/2024 14:08
== END 2024-11-03 13:28 | disposition home or self-care (01) ==
LOC: CT 13:27
PROVIDERS: PCP Family Medicine; Visit Provider Internal Medicine
DX: R91.8 Other nonspecific abnormal finding of lung field (principal)
CPT/HCPCS: 71250

== ENCOUNTER 2024-11-05 10:16 | Outpatient (OUT) | payer MEDICARE, SELFPAY ==
[2024-11-05 11:22] LABS: Erythrocyte Sedimentation Rate 15 mm/hr (<=20)
[2024-11-06 14:11] LABS: ANA Direct Negative (Negative)
[2024-11-06 16:08] LABS: Angiotensin-Converting Enzyme 120 U/L (14-82)
[2024-11-07 06:08] LABS: QuantiFERON-TB Gold Plus Negative (Negative)
[2024-11-09 19:20] LABS: Histoplasma Gal'mannan Ag Ur Negative (<0.2 ng/mL)
[2024-11-09 19:20] LABS: Anti-GBM Antibodies <0.2 units (0.0-0.9)
[2024-11-09 20:08] LABS: Anti-MPO Antibodies <0.2 units (0.0-0.9); Anti-PR3 Antibodies <0.2 units (0.0-0.9); Cytoplasmic (C-ANCA) <1:20 titer (Neg:<1:20); Perinuclear (P-ANCA) <1:20 titer (Neg:<1:20)
[2024-11-10 16:08] LABS: Aspergillus flavus Negative (Neg:<1:1); Aspergillus fumigatus Negative (Neg:<1:1); Aspergillus niger Negative (Neg:<1:1); Blastomyces Abs, Qn, DID Negative (Neg:<1:1)
== END 2024-11-05 10:17 | disposition home or self-care (01) ==
LOC: LAB 10:17
PROVIDERS: PCP Family Medicine; Visit Provider Internal Medicine
DX: R91.8 Other nonspecific abnormal finding of lung field (principal)
CPT/HCPCS: 36415; 82164; 83516; 85652; 86037; 86038; 86480; 86606; 86612; 87385

== ENCOUNTER 2024-12-09 19:53 | Outpatient (OUT) | payer MEDICARE, SELFPAY ==
--- OUTSIDE RECORDS SUMMARY | 2024-12-09 20:00 | XMS_ITS | CCD ---
Author Organization [facility] Care Team Providers Care Model Engine Mechanic Name Role Phone Elaine Mejia Primary Care Provider FRANKIE ESTRELLA Attending Unavailable ELAINE MEJIA Primary Care Unavailable ELAINE MEJIA Primary Care Physician [phone] Esther Padilla Unavailable Unavailable CYNTHIA, DR LENA Campbell Attending Unavailable CYNTHIA, DR LENA Campbell Consulting Unavailable JACKIE, DR ELAINE Hammond Primary Care Unavailable CYNTHIA, DR LENA Campbell Admitting Unavailable JACKIE, DR ELAINE Hammond Attending Unavailable JACKIE, DR ELAINE Hammond Primary Care Unavailable JACKIE, DR ELAINE Hammond Admitting Unavailable POLLY, DR SIMRAN Campbell Consulting Unavailable JACKIE, DR ELAINE Hammond Consulting Unavailable Elaine Mejia Unavailable Unavailable Primary Care Provider UnavailElaine Monge MD Primary Care Provider DO Angus Jackson Admitting Unavailable DO Angus Jackson Attending Unavailable Mann, DO Angus Nobles Referring Unavailable Angus Jackson Admitting Unavailable Angus Jackson Attending Unavailable Angus Jackson Referring Unavailable Inés Gregorio Unavailable Unavailable Mann Angus Giuliano Referring Unavailable Angus Jackson Attending Unavailable Brendan Jacksonson Giuliano Admitting Unavailable Gileighton MOREAU, Andrius Franky Attending Unavailable Giedraitis , Andrius Vytautshruthi Attending Unavailable Giedraitis , Andrius Vytautas Attending Unavailable Giedraitis , Andrius Vytautshruthi Attending Unavailable Giedraitis , Andrius Vytautas Attending Unavailable Gibinhitis , Andrius Vytautas Attending Unavailable Angus Jcakson Admitting Unavailable Angus Jackson Attending Unavailable Angus Jackson Referring Unavailable Elaine Mejia MD Primary Care Provider Elaine Mejia MD Primary Care Provider [phone] Elaine Mejia MD Primary Care Provider BROWN, ANGUS A Attending Unavailable BROWN, ANGUS A Referring Unavailable BROWN, ANGUS A Referring Unavailable BROWN, ANGUS A Attending Unavailable BROWN, ANGUS A Referring Unavailable MUNOZ, CASSIA Attending Unavailable BROWN, ANGUS A Referring Unavailable MUNOZ, CASSIA Attending Unavailable BROWN, ANGUS A Referring Unavailable KELBLEDagoberto, INÉS Attending Unavailable BROWN, ANGUS A Referring Unavailable CHRISTOPHER, BARBARA D Referring Unavailable MUNOZ, CASSIA Attending Unavailable BROWN, ANGUS A Referring Unavailable KELBLEY, INÉS Attending Unavailable BROWN, ANGUS A Referring Unavailable CARSON SIMPSON Attending Unavailable BROWN, ANGUS A Referring Unavailable KELBLEY, INÉS Attending Unavailable BROWN, ANGUS A Referring Unavailable KELBLEY, INÉS Attending Unavailable BROWN, ANGUS A Referring Unavailable BROWN, ANGUS A Referring Unavailable BROWN, ANGUS A Attending Unavailable CHRISTOPHER, BARBARA D Attending Unavailable CHRISTOPHER BARBARA D Referring Unavailable Generic Provider , No Assigned Pcp Primary Car e Provider Unavailable JAYMIE BOSTON Attending Unavailable JAYMIE BOSTON Referring Unavailable Allergies Allergy Classification Reported Allergen(s) Allergy Type Date of Onset Reaction(s) Facility (3 sources) patient allergy list reviewed by nurse or physicia Propensity to adverse reactions 9 Comment:Done Wix Other (3 sources) Allergies Reconciled Propensity to adverse reactions Unknown Wix Other (3 sources) No Known Medication Allergies; Translations: [No Known Medication Allergies] Propensity to adverse reactions (disorder) [facility] Repository Medications Current Medications Medication Drug Class(es) [...] tablet (3 sources) Opioid Agonist Start: 11-03-2018 Pella 325 mg-5 mg oral tablet 1 tab(s), Oral, q4hr for pain, 12 tab(s), Refill(s) 0 Start Date: 11/03/18 Status: Ordered acetaminophen 325 mg / oxyCODONE hydrochloride 5 mg oral tablet (20 sources) Opioid Agonist Start: 09-09-2024 Percocet 5 mg-325 mg oral tablet See Instructions, 40 tab(s), Refill(s) 0, 1-2 tab(s) Oral q4hr, [id number], 183.7, cm, 08/24/24 13:51:00 EST, Height/Length Dosing, 86.8, kg, 08/24/24 13:51:00 EST, Weight Dosing Start Date: 09/09/24 Status: Ordered aspirin 81 mg delayed release oral tablet (20 sources) Platelet Aggregation Inhibitor, Nonsteroidal Anti-inflammatory Drug Start: 09-09-2024 End: 12-08-2024 aspirin 81 MG EC tablet Take 81 mg by mouth 09/09/2024 12/08/2024 Active celecoxib 200 mg oral capsule (20 sources) Nonsteroidal Anti-inflammatory Drug Start: 09-09-2024 CeleBREX 200 MG capsule Take 200 mg by mouth 09/09/2024 Active cephalexin 500 mg oral capsule (1 source) Cephalosporin Antibacterial Start: 09-09-2024 End: 09-16-2024 take 1 capsule by mouth every eight hours Keflex 500 mg Cap 500 mg = 1 cap(s), Oral, q8hr, X 7 day(s), # 21 cap(s), Refills(s) 0, Pharmacy: [facility] #[id number], 183.7, cm, 08/24/24 13:51:00 EST, Height/Length Dosing, 86.8, kg, 08/24/24 13:51:00 EST, Weight Dosing Start Date: 09/09/24 Stop Date: 09/16/24 Status: Ordered ciprofloxacin 3 mg/ml / dexamethasone 1 mg/ml otic suspension (1 source) Corticosteroid, Quinolone Antimicrobial Start: 01-06-2022 End: 01-13-2022 ciprofloxacin-dexa methasone 0.3%-0.1% Otic Susp 4 drop(s), Ear-Right, BID for 7 day(s), 10 mL, Refill(s) 0 Start Date: 01/06/22 Stop Date: 01/13/22 Status: Ordered docusate sodium 100 mg oral capsule (20 sources) Start: 09-09-2024 Colace 100 MG capsule Take 100 mg by mouth 09/09/2024 Active escitalopram 10 mg oral tablet (20 sources) [...] 90 Tablet; Provider: Jackie Wright ( ) gabapentin 300 mg oral capsule (20 sources) Anti-epileptic Agent Start: 09-09-2024 End: 09-23-2024 gabapentin (Neurontin) 300 MG capsule 09/09/2024 Active ibuprofen 600 mg oral tablet (1 [...] for Pain 120 tablet 0 08/01/2020 Active ketorolac tromethamine 10 mg oral tablet (1 source) Nonsteroidal Anti-inflammatory Drug, Cyclooxygenase Inhibitor Start: 09-09-2024 End: 09-12-2024 take 1 tablet by mouth every eight hours ketorolac 10 mg Tab 10 mg = 1 tab(s), Oral, q8hr, X 3 day(s), # 9 tab(s), Refills(s) 0, Pharmacy: [facility] #[id number], 183.7, cm, 08/24/24 13:51:00 EST, Height/Length Dosing, 86.8, kg, 08/24/24 13:51:00 EST, Weight Dosing Start Date: 09/09/24 Stop Date: 09/12/24 Status: Ordered lamoTRIgine 25 mg oral tablet (20 sources) Mood Stabilizer, Anti-epileptic Agent Start: 08-24-2024 [...] 1 TABLET BY MOUTH AT BEDTIME Start: 01-25-2022 End: 11-01-2023 take 1 tablet by mouth once daily at bedtime Lamotrigine 25 mg tablet Discontinued 1 TAB PO Daily at bedtime September 16, 2023 11:00pm November 01, 2023 9:36am FreeTextSig: TAKE 1 TABLET BY MOUTH AT BEDTIME; Note: Source Status: Start; Refills: 0; Qty: 90 Tablet; Provider: Jackie Wright ( ) loratadine 10 mg oral tablet (20 sources) Start: 09-17-2023 loratadine (Cl aritin) 10 MG tablet 09/17/2023 Active Start: 10-31-2020 take 1 tablet by musa th once daily Loratadine 10MG Loratadine 10MG, 1 (one) Tablet daily # 30, 10/31/2020, Ref. x2. Active Oral daily for 30 *Pick strength-form from opendorse for eRX* October, Active losartan potassium 50 mg oral tablet (20 sources) Angiotensin 2 Receptor Brandi Start: 08-24-2024 take 1 tablet by mouth once daily losartan 50 mg Tab 50 mg = 1 tab(s), Oral, Daily, High blood pressure Start Date: 08/24/24 Status: Ordered Start: 10-21-2023 End: 03-26-2024 take 1 tablet by mouth once daily Losartan 50 mg tablet Active 0 .ROUTE .COMPLEX March 26, 2024 11:18am TAKE 1 TABLET [...] ( ) methocarbamol 750 mg oral tablet (20 sources) Muscle Relaxant Start: 05-28-2023 take 1 [...] 1 dose meloxicam 15 mg oral tablet (20 sources) Nonsteroidal Anti-inflammatory Drug Start: 12-03-2023 End: 09-01-2024 take 1 tablet by mouth once daily Meloxicam 15 mg tablet Discontinued 0 .ROUTE .COMPLEX May 04, 2024 12:33pm September 01, 2024 [...] 18, 2023 11:00pm January 30, 2024 10:17am triamcinolone acetonide 32 mg injection (4 sources) Corticosteroid Start: 09-24-2024 End: 09-24-2024 triamcinolone acetonide (Zilretta) injection 32 mg Start: 09-24-2024 End: 09-24-2024 32 mg, Once PRN Procedure, S tarting on Arianna 09/24/24 at 0940, For 1 dose Problems Active Problems Problem Classification Problem Date Documented Date Episodic/Chronic Anxiety disorders (2 sources) Anxiety 08-24-2024 Chronic Essential hypertension (6 sources) Essential hypertension; Translations: [Essential (primary) hypertension] Chronic Malaise and fatigue (1 source) Other fatigue Episodic Miscellaneous mental health disorders (3 sources) Transient insomnia; Translations: [Adjustment insomnia] Episodic Mood disorders (2 sources) Depressive disorder 08-24-2024 Chronic Osteoarthritis (20 sources) Degenerative joint disease involving multiple joints; Translations: [Polyosteoarthritis, unspecified] 05-25-2024 Chronic Other aftercare (1 source) Encounter for removal of sutures Episodic Other connective tissue disease (14 sources) History of total knee arthroplasty; Translations: [Presence of right artificial knee joint] 09-24-2024 Chronic Other ear and sense organ disorders (1 [...] nodule] 09-01-2024 Episodic Other non-traumatic joint disorders (4 sources) Pain in left knee; Translations: [Pain in joint, lower leg] 05-25-2024 Episodic Other screening for suspected conditions (not mental disorders or infectious disease) (1 source) Encounter for screening for malignant neoplasm of prostate Episodic Residual codes; unclassified (6 sources) Obstructive sleep apnea syndrome; Translations: [Obstructive sleep apnea (adult) (pediatric)] Onset: 10-09-2021 Chronic Spondylosis; intervertebral disc disorders; other back problems (13 sources) Low back pain; Translations: [Low back pain radiating to both legs] Onset: 12-08-2024 09-19-2023 Episodic Substance-related disorders (13 sources) Smoker; Translations: [Nicotine dependence, cigarettes, uncomplicated] Onset: 01-13-2022 11-03-2018 Chronic Comment on above: Added secondary to d ocumentation in Social History. Unclassified (1 source) Low back pain, unspecified; Translations: [Low back pain, unspecified] Onset: 12-08-2024 Past or Other Problems Problem Classification Problem Date Documented Da te Episodic/Chronic Mood disorders (3 sources) Mood disorders; Translations: [Depression, controlled] Unclassified (2 sources) Acute pain of left knee 09-26-2024 Unclassified (1 source) Low back pain, unspecified; Translations: [Low back pain, unspecified] Onset: 12-08-2024 Results Test Name Value Interpretation Reference Range Facility XR LUMBAR SPINE 4+ VIEWS WIT H FLEXION EXTENSIONon 12-08-2024 XR LUMBAR SPINE 4+ VIEWS WITH FLEXION EXTENSION Interpreted By: Jaymie Boston, STUDY: XR LUMBAR SPINE 4+ VIEWS WITH FLEXION EXTENSION; 12/08/2024 8:03 am INDICATION: Signs/Symptoms:low back pain. ACCESSION NUMBER(S): [id number] ORDERING CLINICIAN: JAYMIE BOSTON FINDINGS: AP lateral flexion extension x-rays of the lumbar spine show severe degenerative changes at all levels with disc height loss, endplate irregularity and osteophyte formation. There is no spondylolisthesis. There is no spondylolysis. There is no fractures. Lumbar lordosis is maintained. Range of motion with flexion and extension is preserved. There is a scoliosis centered around L3-4 to the right of a proximally 10 degrees. Pedicles are visualized at all levels. Bony pelvis and hips are partially visualized and show minimal bilateral hip degenerative changes. Signed by: Jaymie Boston 12/08/2024 8:30 AM Dictation workstation: [id number] [facility] XR Lumbar spine Views W flex ion and W extensionon 12-08-2024 Interpreted By: Jaymie Boston, STUDY: XR LUMBAR SPINE 4+ VIEWS WITH FLEXION EXTENSION; 12/08/2024 8:03 am INDICATION: Signs/Symptoms:low back pain. ACCESSION NUMBER(S): [id number] ORDERING CLINICIAN: JAYMIE BOSTON FINDINGS: AP lateral flexion extension x-rays of the lumbar spine show severe degenerative changes at all levels with disc height loss, endplate irregularity and osteophyte formation. There is no spondylolisthesis. There is no spondylolysis. There is no fractures. Lumbar lordosis is maintained. Range of motion with flexion and extension is preserved. There is a scoliosis centered around L3-4 to the right of a proximally 10 degrees. Pedicles are visualized at all levels. Bony pelvis and hips are partially visualized and show minimal bilateral hip degenerative changes. Signed by: Jaymie Boston 12/08/2024 8:30 AM Dictation workstation: [id number] MMODAL Jaymie Boston MD - 12/08/2024 Interpreted By: Jaymie Boston, STUDY: XR LUMBAR SPINE 4+ VIEWS WITH FLEXION EXTENSION; 12/08/2024 8:03 am INDICATION: Signs/Symptoms:low back pain. ACCESSION NUMBER(S): [id number] ORDERING CLINICIAN: JAYMIE BOSTON FINDINGS: AP lateral flexion extension x-rays of the lumbar spine show severe degenerative changes at all levels with disc height loss, endplate irregularity and osteophyte formation. There is no spondylolisthesis. There is no spondylolysis. There is no fractures. Lumbar lordosis is maintained. Range of motion with flexion and extension is preserved. There is a scoliosis centered around L3-4 to the right of a proximally 10 degrees. Pedicles are visualized at all levels. Bony pelvis and hips are partially visualized and show minimal bilateral hip degenerative changes. Signed by: Jaymie Boston 12/08/2024 8:30 AM Dictation workstation: [id number] [facility] Work Phone: [facility] Work Phone: Radiology Study observation (narrative) [facility] Work Phone: XR Knee - right 3 [facility] Result: Three views, bilateral PA weight-bearing/sunris e/lateral right knee, taken today and saved to the permanent medical record are reviewed. Prosthesis is unchanged in position and alignment. No signs of prosthetic wear or loosening. No periprosthetic fractures. [facility] Radiology Study observation (narrative) [facility] XR Knee - right 3 [facility] Result: Three views, bilateral PA weight-bearing/sunris e/lateral right knee, taken today and saved to the permanent medical record are reviewed. Prosthesis is unchanged in position and alignment. No signs of prosthetic wear or loosening. No periprosthetic fractures. Arthritic changes at lateral PF joint left knee. [facility] No Panel Informationon 09-24 Inés Gregorio, ARR T 09/26/2024 6:50 AM L Inj/Asp: L knee on 09/24/2024 9:40 AM Indications: pain Details: 22 G needle, lateral approach Medications: 32 mg triamcinolone acetonide 32 MG Consent was given by the patient. [facility] XR Knee - right 3 [facility] Study observation (narrative) [facility] Surgical Pathology Reporton 09-18-2024 Surgical Pathology Report [address] [address]- Surgical Pathology Report Collected Date/Time: 09/09/2024 10:28 EDT Pathologist: Oswaldo MOREAU PhD, Jimmie Winters Received Date/Time: 09/09/2024 11:56 EDT Angus Jackson DO, DO, Jason A 07 Surgical Pathology Report - 09/18/2024 15:50 EDT - Auth (Verified) Final Diagnosis RIGHT KNEE BONE AND SOFT TISSUE, ARTHROPLASTY: - BONE CARTILAGE WITH DEGENERATIVE REMODELING CHANGES, CONSISTENT WITH DEGENERATIVE OSTEOARTHRITIS. - BENIGN SYNOVIAL SOFT TISSUE. (Electronic Signature) Jimmie Chacon MD PhD 09/18/2024 15:50 Clinical Information Right knee osteoarthritis Pre-Op Diagnosis: Right knee osteoarthritis Procedure: Right total knee arthroplasty Post-Op Diagnosis: Advanced degenerative osteoarthritis, right knee Specimen(s) Received Right knee bone and soft tissue Gross Description Received in formalin labeled with patient name, number, and right knee bone and soft tissue are multiple fragments of dark red/pink/light yellow bone, cartilage, and soft tissue measuring in aggregate 9 x 9 x 7 cm. Articular surface is eburnated. Cross-section reveals no discrete mass. Bacteriologist Medical sections are submitted in two cassettes. A2 is decalcified. () [facility] Microscopic Description Microscopic examination performed unless gross only specified. This report was transcribed using voice recognition technology and might contain unintended computerized boom worker errors. Normal [facility] Comment on above: Performed By: #### [id number] #### [facility] [address] [place] [address] Operative Reporton 5 Operative Report Operative Report Patient: ROSALIO JARQUIN Age: 69 years Sex: Male : 1955 Associated Diagnoses: None Author: Adrián Sheikh Jr, DO Procedure Nerve Block Block Type: Adductor canal block. Laterality: Right. Informed consent for anesthesia management: Anesthesia options discussed including nerve block, Description of the procedure, risks, benefits, and alternatives was provided, The patient's questions were addressed. Time out: Confirmed correct patient, procedure and site. Time: Date/Time 09/09/2024 08:08:00. Indication: Block for postoperative pain management as requested by surgeon. Anesthesia Method: IV Sedation with monitored anesthesia care, The patient remained awake and able to interact in a meaningful way throughout the procedure. Preparation: The patient was placed in the following position Supine, Continuous pulse oximetry applied, Using maximal sterile barrier technique per current [facility] guidelines including hand hygeine, Guidance (Ultrasound used to identify anatomical landmarks, Using sterile gel and probe covers, Permanent image retained), The site was prepped with ChloraPrep. Procedure: Anesthetic Agent 20cc of 0.5% Ropivicaine with 4mg decadron, Needle was inserted without pain or parasthesia in the conscious patient, Number of attempts 1, Negative attempt at aspiration for blood, Medial and lateral spread of the anesthestic was observed, Periodic negative attempts at aspiration of blood were made as the local was injected, No pain or parathesia were elicited with injection of the anesthetic in the conscious patient, It was idetified that the correct anesthetic agent was administered to the correct site. Complications: The patient tolerated the procedure as expected. [facility] Comment on above: Result Comment: Elec tronically Signed By: Adrián Sheikh Jr, DO\.br\Date and Time Signed: 09/13/24 10:35 EDT Main OR Intraoperative Recor don 09-10-2024 Main OR Intraoperative Record Main OR Intraoperative Record IntraOp Document Type FT Summary Primary Physician: Angus Jackson DO Finalized Date/Time: 09/10/24 12:51:22 Pt. Name: ROSALIO JARQUIN Giuliano Pratt./Sex: 1955 Male Med Rec #: [id number] Physician: Angus Jackson DO Financial #: [id number] Pt. Type: A Room/Bed: [place] [address] Admit/Disch: 09/09/24 05:36:01 - 09/09/24 15:45:00 Institution: Case Times FT Entry 1 Patient Times In Room 09/09/24 09:29:00 Out Room 09/09/24 11:41:00 Procedure Times Start 09/09/24 10:14:00 Stop 09/09/24 11:36:00 Anesthesia Times Start 09/09/24 09:29:00 Stop 09/09/24 11:41:00 Block Timeout w/ 09/09/24 08:10:00 Anesthesia Last Modified By: Rashel SOLANO, Kacey Hammond 09/09/24 11:41:03 General Comments: ULTRASOUND GUIDED NERVE BLOCK PERFORMED BY DR. SHEIKH WITH EDWIN BOWEN ASSISTING, HEART RATE: 64BPM, SPO2: 96% RA, PATIENT TOLERATED WELL. XIOMARA DYE 09/10/24 Chart opened to review and send charges [facility]FA Case Attendance FT Entry 1 Entry 2 Entry 3 Case Attendee Jaymie Alarcon DO, Jason A Wilhelm CST, Macie C Role Performed Anesthesiologist Surgeon - Primary ORGAN PIPE MAKER METAL/SA Continuous Still Operator Time In 09/09/24 09:29:00 09/09/24 10:11:00 09/09/24 09:29:00 Time Out 09/09/24 11:41:00 09/09/24 11:23:00 09/09/24 11:41:00 Procedure KNEE TOTAL ROBOT KNEE TOTAL ROBOT KNEE TOTAL ROBOT ARTHROPLASTY(Right) ARTHROPLASTY(Right) ARTHROPLASTY(Right) Comments DR. SHEIKH SUPERVISING Last Modified By: Rashel RN, Kacey Kiser RN, Kacey Kiser RN, Kacey Hammond 09/09/24 11:41:04 09/09/24 11:41:04 09/09/24 11:41:04 Entry 4 Entry 5 Entry 6 Case Attendee Rashel SOLANO, Ammy Rodrigues CST, Isrrael Role Performed Energy Broker - Primary Scrub - Primary Staff - Other Time In 09/09/24 09:29:00 09/09/24 09:29:00 09/09/24 09:29:00 Time Out 09/09/24 11:41:00 09/09/24 11:41:00 09/09/24 11:20:00 Procedure KNEE TOTAL ROBOT KNEE TOTAL ROBOT KNEE TOTAL ROBOT ARTHROPLASTY(Right) ARTHROPLASTY(Right) ARTHROPLASTY(Right) Comments 2ND SCRUB Last Modified By: Rashel RN, Kacey Kiser RN, Kacey Kiser RN, Kacey Hammond 09/09/24 11:41:04 09/09/24 11:41:04 09/09/24 11:41:04 General Comments: NARGIS WARREN PRESENT FOR THIS CASE. 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 Protocols FT Pre-Care Text: Implements protective measures prior to operative or invasive procedure, confirms identity before the operative or invasive procedure, verifies operative procedure, surgical site, and laterality Entry 1 Procedure(s) KNEE TOTAL ROBOT Patient Identity Birthday, Blood Band, ARTHROPLASTY(Right) Verified (select at ID Band Check, Patient least 2): Participation Consents / H and P Anesthesia Consent, Operative Site Present Verified H&P, Surgery/Procedure Marking Verified Consent, Transfusion Consent Surgical Site Yes Laterality Verified Yes Verified Procedure Verified Yes Correct Patient Yes Position Verified Availability Equipment, Implant, Prep Dry n/a Verified (If Medication Applicable) PreOp Antibiotic Yes Time Out Jaymie Alarcon Given Participants Mann Ortiz DO, Augie Mckeon CST, VeronaRashel Vazquez RN, Leann E, Miller, Laura C, Dent CST, Beau Time Out Complete 09/09/24 10:12:00 Outcomes Met? Yes Last Modified By: Kacey Kiser RN 09/09/24 10:15:49 Post-Care Text: The patient is free from signs and symptoms of injury caused by extraneous objects Allergy Information FT Pre-Care Text: Verifies allergies Entry 1 Allergies Reviewed? Yes Allergies Reviewed Self/Patient With Outcomes Met? Yes Last Modified By: Kacey Kiser RN 09/09/24 09:54:10 Post-Care Text: The patient received appropriate medication(s) safely administered during the perioperative period Surgical Procedures FT Entry 1 Procedure Description Procedure KNEE TOTAL ROBOT Modifiers Right ARTHROPLASTY Surgeon Description RIGHT TOTAL KNEE ARTHROPLASTY WITH ROBOTIC ASSIST Primary Procedure Yes Primary Surgeon Angus Jackson DO Start 09/09/24 10:14:00 Stop 09/09/24 11:36:00 Anesthesia Type General Surgical Service Orthopedics Wound Class 1 - Clean Last Modified By: Gracie oRsales CST 09/10/24 12:43:09 General Case Data FT Pre-Care Text: Classifies surgical wound, implements aseptic technique, initiates traffic control Entry 1 Case Information OR OR 5 FT Case Level Level 6 Wound Class 1 - Clean Specialty Orthopedics ASA Class 3 Preop Diagnosis OSTEOARTHRITIS RIGHT Postop Same As Preop Yes KNEE Postop Diagnosis OSTEOARTHRITIS RIGHT Outcomes Met? Yes KNEE Last Modified By: Kacey Kiser RN 09/09/24 10:08:02 Post-Care Text: The patient is free from signs and symptoms of infection Skin Assessment (Pre Procedure) FT Pre-Care Text: Implements protective measures to prevent skin/ tissue injury due to thermal or mechanical sources Evaluates for signs and symptoms of physical injury to skin and tissue Entry 1 Skin Integrity Intact, [place], Warm, & Skin Abnormality No Dry Outcomes M (more content not included)... Normal [facility] ABO/Rhon 09-09-2024 ABO/Rh Positive Invalid Interpretation Code [facility] Comment on above: Performed By: #### [id number] #### [facility] [address] [place] [address] ABO/Rh History Checkon 09-09 ABO/Rh History Check Verified Hx Blood Type Normal [facility] Comment on above: Performed By: #### [id number] #### [facility] [address] [place] [address] ABSCon 09-09-2024 ABSC Gel Interp Negative Normal [facility] Comment on above: Performed By: #### [id number] ####[facility] [id number] [place] [address] BLOOD BANKOrdered By: Jessica Zepeda on 09-09-2024 ABO/Rh Interp Positive Invalid Interpretation Code [facility] BB Subsection ABSC Gel Interp Negative (09/09/24 6:24 AM) Normal [facility] BB Subsection Blood Bank ID#on 09-09-2024 BBID# [id number] Invalid Interpretation Code [facility] Comment on above: Performed By: #### 1 [id number] #### [facility] [address] [place] [address] Discharge Instructionson Discharge Instructions Discharge Instructions ROSALIO JARQUIN :1955 Visit Date:09/09/2024 Inpatient Discharge Instructions Your Care Team Admitting Physician - Angus Jackson DO Referring Physician - Angus Jackson DO Reason for Your Visit OA RIGHT KNEE Tests Performed Pathology Tissue Exam -- Results Pending -- XR Knee 1 or 2 Views Right -- Results Pending -- Please visit your patient portal for your results or contact your primary care physician. Procedure History broke leg, Hernia repair. Discharge Vitals Temperature (Axillary) 36.4 ???C Heart Rate (Monitored) 65 Respiratory Rate 16 Blood Pressure 184/75 What to do next New Follow Up Appointments after Discharge Follow Up with Angus Jackson When: 09/24/2024 09:00 AM EDT Comments: Appointment has already been scheduled. Call for any problems. Where: [address] [place] [address]- [facility] (1) Medications What How Much When Instructions Next Dose New acetaminophen-oxycodo ne (Percocet 5 mg-325 mg oral tablet) See instructions 1-2 tab(s) Oral q4hr Pickup at [facility] #[id number] New aspirin (aspirin 81 mg Oral EC Tab) 1 Tablets By Mouth Every day Duration: 90 Days Pickup at [facility] #[id number] New celecoxib (CeleBREX 200 mg Cap) 1 Capsules By Mouth Every day start after finishing ketorolac Pickup at [facility] #[id number] New cephalexin (Keflex 500 mg Cap) 1 Capsules By Mouth Every 8 hours Duration: 7 Days Pickup at [facility] #[id number] New docusate (Colace 100 mg Cap) 1 Capsules By Mouth 2 times a day as needed for for constipation Pickup at [facility] #[id number] New gabapentin (gabapentin 300 mg Cap) 1 Capsules By Mouth 3 times a day Duration: 14 Days Pickup at [facility] #[id number] New ketorolac (ketorolac 10 mg Tab) 1 Tablets By Mouth Every 8 hours Duration: 3 Days Pickup at [facility] #[id number] Unchanged escitalopram (escitalopram 10 mg Tab) 1 Tablets By Mouth Every day Unchanged lamotrigine (lamotrigine 25 mg Tab) 1 Tablets By Mouth At bedtime Unchanged losartan (losartan 50 mg Tab) 1 Tablets By Mouth Every day Pharmacy Information [facility] #[id number]: [address] [place], [place] [phone] What How Much When Comments Stop Taking loratadine (loratadine 10 mg Tab) 1 Tablets By Mouth Every day Allergies No Known Medication Allergies Education Materials [place], [place] [facility] DISCHARGE INSTRUCTIONS: TOTAL KNEE ARTHROPLASTY INCISION CARE: The bandage may be changed by your home Physical Therapist at 7 days postoperatively and worn an additional 7 days. A new Mepilex bandage should then be placed. The bandage is waterproof, so you may shower at home. Steri-strips (paper tape strips) may be applied to the incision if any slight wound separation is noted. These should remain in place for five days and then they may come off in the shower. Please notify the office if any increase in redness, tenderness, drainage, fever, or wound separation is noted beyond this point. MEDICATIONS: You may resume your home medications at the time of discharge. Arixtra and Lovenox are mild blood thinners that prevent the development of blood clots in the legs. One of these has been used during your hospitalization. After discharge home you should continue the use of two stomach coated baby Aspirin tablets daily with your largest meal for 30 days after home discharge. Please notify your doctor if you have a stomach sensitivity to Aspirin or history of previous stomach ulcers. Pain medication has been prescribed as well. You may continue to use the pain medication every four hours as needed. Any narcotic pain medication can cause side effects including stomach upset, constipation, or light-headedness. You should not drive or operate machinery, or drink alcohol while using the narcotic pain medication. You should not use other pain medications with this prescription pain medication unless further directed by your physician. PHYSICAL THERAPY Continue the range of motion and strengthening exercises initiated by Physical Therapy in the hospital. Continue weight bearing, as ordered, to the operated knee as directed in Physical Therapy. This will be with the use of a walker or crutches initially. Physical therapy as begun in the hospital will continue at home, possibly with the permit review assistant of Home Health Physical Therapy or in the hospital as an outpatient. When you have become independent with the physical therapy program, this will then be discontinued as a supervised program and you will be instructed to continue the physical therapy exercises at home. Your exercises are flynn to successful rehabilitation. You should gain full extension first, hopefully before hospital discharge, and gain 90 degrees flexion by one month po (more content not included)... [facility] Comment on above: Result Comment: Elec tronically Signed By: Roxana SOLANO, Ekaterina Negron\.br\Date and Time Signed: 09/09/24 11:35 EDT Inpatient Patient Summaryon 09-09-2024 Inpatient Patient Summary Inpatient Patient Summary [address] [address] [facility] Clinical Discharge Instructions PERSON INFORMATION Name: ROSALIO JARQUIN [facility]#:[id number] PHYSICIANS Admitting Physician: Angus Jackson DO Attending Physician: Angus Jackson DO PCP: ELAINE MEJIA MD Discharge Diagnosis: Comment: PATIENT EDUCATION INFORMATION Instructions: Monique Jackson - Total Knee Arthroplasty (Custom) Medication Leaflets: Follow up: With: Address: When: Angus Jackson [address] [place] [address] [facility] (1) 09/24/2024 9:00 AM Comments: Appointment has already been scheduled. Call for any problems. MEDICATION LIST New Medications [facility] #[id number], [address] [place], [place] [phone], [phone] acetaminophen-oxycodo ne (Percocet 5 mg-325 mg oral tablet) 1-2 tab(s) Oral q4hr. Refills: 0. aspirin (aspirin 81 mg Oral EC Tab) 1 Tablets By Mouth every day for 90 Days. Refills: 0. celecoxib (CeleBREX 200 mg Cap) 1 Capsules By Mouth every day. start after finishing ketorolac. Refills: 0. cephalexin (Keflex 500 mg Cap) 1 Capsules By Mouth every 8 hours for 7 Days. Refills: 0. docusate (Colace 100 mg Cap) 1 Capsules By Mouth 2 times a day as needed for constipation. Refills: 0. gabapentin (gabapentin 300 mg Cap) 1 Capsules By Mouth 3 times a day for 14 Days. Refills: 0. ketorolac (ketorolac 10 mg Tab) 1 Tablets By Mouth every 8 hours for 3 Days. Refills: 0. Medications to Continue with No Changes Other Medications escitalopram (escitalopram 10 mg Tab) 1 Tablets By Mouth every day. lamotrigine (lamotrigine 25 mg Tab) 1 Tablets By Mouth at bedtime. losartan (losartan 50 mg Tab) 1 Tablets By Mouth every day. No Longer Take the Following Medications loratadine (loratadine 10 mg Tab) 1 Tablets By Mouth every day. Comment: [facility] Main OR PACU I Recordon 08-29 Main OR PACU I Record Main OR PACU I Rec ord PACU Phase I Document Type FT Summary Primary Physician: Angus Jackson DO Finalized Date/Time: 09/09/24 12:28:27 Pt. Name: ROSALIO JARQUIN/Sex: 1955 Male Med Rec #: [id number] Physician: Angus Jackson DO Financial #: [id number] Pt. Type: A Room/Bed: AS04 Admit/Disch: 09/09/24 05:36:01 - Institution: Case Times PACU I FT Pre-Care Text: Identifies barriers to communication and implements measures to provide psychological support Develops individualized plan of care, and ensures continuity of care Maintains patient's dignity and privacy, and maintains patient confidentiality Identifies and reports philosophical, cultural, and spiritual beliefs and values Identifies individual values and wishes concerning care Implements aseptic technique, and administers prescribed antibiotic therapy and immunizing agents as ordered Evaluates postoperative tissue perfusion Implements thermoregulation measures, and monitors body temperature Evaluates postoperative respiratory status Evaluates postoperative cardiac status Evaluates postoperative neurological status Assesses pain control, collaborated in initiating patient-controlled analgesia and implements alternative methods of pain control Verifies allergies, administers prescribed medications and solutions, evaluates response to medications Entry 1 In PACU I 09/09/24 11:43:00 Discharge from PACU 09/09/24 12:13:00 I Outcomes Met? Yes Last Modified By: Mariah Wayne RN 09/09/24 12:28:10 Post-Care Text: The patient demonstrates knowledge of the expected response to the operative or invasive procedure The patient's care is consistent with the individualized perioperative plan of care The patient's right to privacy is maintained The patient's value system, lifestyle, ethnicity, and culture are considered, respected, and incorporated into the perioperative plan of care The patient participates in decisions affecting his or her perioperative plan of care The patient is free from signs and symptoms of infection The patient has wound/tissue perfusion consistent with or improved from baseline levels established preoperatively The patient is at or returning to normothermia at the conclusion of the immediate postoperative period The patient's respiratory function is consistent with or improved from baseline levels established preoperatively The patient's cardiovascular status is consistent with or improved from baseline levels established preoperatively The patient's cardiovascular status is consistent with or improved from baseline levels established preoperatively The patient demonstrates and/or reports adequate pain control throughout the perioperative period The patient received appropriate medication(s), safely administered during the perioperative period Acuity Level PACU I FT Entry 1 Start Time 09/09/24 11:43:00 Stop Time 09/09/24 12:13:00 Acuity Level Acuity Level I Last Modified By: Mariah Wayne RN 09/09/24 12:28:23 Finalized By: Mariah Wayne RN Document Signatures Signed By: Mariah Wayne RN 09/09/24 12:28 [facility] Main OR PACU II Recordon Main OR PACU II Record Main OR PACU II Record PACU Phase II Document Type FT Summary Primary Physician: Angus Jackson DO Finalized Date/Time: 09/09/24 15:55:33 Pt. Name: ROSALIO JARQUIN /Sex: 1955 Male Med Rec #: [id number] Physician: Angus Jackson DO Financial #: [id number] Pt. Type: A Room/Bed: [facility] Admit/Disch: 09/09/24 05:36:01 - Institution: Case Times PACU II FT Pre-Care Text: Identifies barriers to communication and implements measures to provide psychological support and determines knowledge level Develops individualized plan of care, and ensures continuity of care Maintains patient's dignity and privacy, and maintains patient confidentiality Identifies and reports philosophical, cultural, and spiritual beliefs and values Identifies individual values and wishes concerning care administers prescribed antibiotic therapy and immunizing agents as ordered, Evaluates postoperative tissue perfusion Implements thermoregulation measures, and monitors body temperature Evaluates postoperative respiratory status Evaluates postoperative cardiac status Evaluates postoperative neurological status Assesses pain control, collaborated in initiating patient-controlled analgesia and implements alternative methods of pain control Verifies allergies, administers prescribed medications and solutions, evaluates response to medications Entry 1 In PACU II 09/09/24 12:15:00 Discharge from PACU 09/09/24 15:45:00 II Outcomes Met? Yes Last Modified By: Nickie Bills 09/09/24 15:55:32 Post-Care Text: The patient demonstrates knowledge of the expected response to the operative or invasive procedure The patient's care is consistent with the individualized perioperative plan of care The patient's right to privacy is maintained The patient's value system, lifestyle, ethnicity, and culture are considered, respected, and incorporated into the perioperative plan of care The patient participates in decisions affecting his or her perioperative plan of care. The patient is free from signs and symptoms of infection The patient has wound/tissue perfusion consistent with or improved from baseline levels established preoperatively The patient is at or returning to normothermia at the conclusion of the immediate postoperative period The patient's respiratory function is consistent with or improved from baseline levels established preoperatively The patient's cardiovascular status is consistent with or improved from baseline levels established preoperatively The patient's neurological status is consistent with or improved from baseline levels established preoperatively The patient demonstrates and/or reports adequate pain control throughout the perioperative period The patient received appropriate medication(s), safely administered during the perioperative period Finalized By: Nickie Bills Document Signatures Signed By: Nickie Bills 09/09/24 15:55 [facility] Main OR Preoperative Recordo n 09-09-2024 Main OR Preoperative Record Main OR Preoperative Record PreOp Document Type FT Summary Primary Physician: Angus Jackson DO Finalized Date/Time: 09/09/24 10:23:20 Pt. Name: ROSALIO JARQUIN /Sex: 1955 Male Med Rec #: [id number] Physician: Angus Jackson DO Financial #: [id number] Pt. Type: A Room/Bed: [place] [address] Admit/Disch: 09/09/24 05:36:01 - Institution: Case Times PreOp FT Pre-Care Text: Verifies consent for planned procedure, identifies individual values and wishes concerning care, includes family members in perioperative teaching Entry 1 Patient Times. In Pre Surgery 09/09/24 05:45:00 Out Pre Surgery 09/09/24 09:27:00 Outcomes Met? Yes Last Modified By: Kacey Kiser RN 09/09/24 10:23:18 Post-Care Text: The patient participates in decisions affecting his or her perioperative plan of care Finalized By: Kacey Kiser RN Document Signatures Signed By: Kacey Kiser RN 09/09/24 10:23 [facility] Operative Reporton Operative Report Operative Report Patient: ROSAILO JARQUIN Age: 69 years Sex: Male : 1955 Associated Diagnoses: None Author: Angus Jackson DO DATE OF SURGERY: 09/09/2024 SURGEON: Angus Jackson D.O. MANAGER MEDICAID: Verona Ghosh CFA PREOPERATIVE DIAGNOSIS: Advanced degenerative osteoarthrosis, right knee POSTOPERATIVE DIAGNOSIS: Advanced degenerative osteoarthrosis, right knee OPERATION: Right total knee arthroplasty utilizing [place] robotic arm assistance ANESTHESIA: Spinal + regional block SENIOR TREASURY ANALYST: ELIEZER Yang and Adrián Sheikh DO IMPLANTS USED: Rima Triathlon Total Knee System 1. size 5 cruciate retaining cementless femur 2. Size 10 mm X3 CS polyethylene 3. Size 5 Tritanium cementless tibial baseplate 4. Size 32 mm asymmetric Tritanium cementless patella OPERATIVE INDICATIONS: Rosalio is a 69-year-old male who has had persistent bilateral knee pain despite numerous conservative measures. His pain interferes with his activities of daily living, ability to sleep at night, and quality of life. His pain has gotten progressively worse over time. He agreed to proceed with the above procedure after a discussion of the risks, benefits, complications, alternatives, and expectations. Please see office notes for further details. The patient's surgery was preplanned utilizing CT scan and Hail Varsity software. This included the planned implant sizes and positions, bone resection, and ligament balancing. Modifications to the plan were made intraoperatively as appropriate. PROCEDURE: The correct operative site was identified and marked in the preoperative holding area. The patient was administered intravenous antibiotics in accordance with SCIP Protocol. He was also given a gram of tranexamic acid intravenously about 15 minutes prior to incision. He was transported to the Regional Anesthetic Block Room and administered a regional anesthetic nerve block by the anesthesiologist. I requested the nerve block to assist with intraoperative and postoperative pain control. He was transported to the Operating Room and administered a spinal anesthetic. He was then placed supine on the operating room table. A well padded tourniquet was applied to the operative upper thigh. The right upper extremity was secured across the patient's torso. The operative lower extremity was then prepped and draped in the usual sterile fashion. The foot was placed into a padded miranda and secured in the [place] knee positioner. Surgical time-out was performed with all required personnel present. The limb was exsanguinated with an Esmarch. Tourniquet was inflated to 300 mm Hg. A longitudinal incision over anterior midline of the knee was made. Medial and lateral skin flaps were developed. Dissection was carried down through the subcutaneous layers. Medial parapatellar arthrotomy was performed and normal appearing joint fluid was encountered and suctioned. Irrisept solution was poured into the joint. The intermeniscal ligament was then cut and soft tissue at the medial tibial plateau was peeled off of the bone with Bovie electrocautery. The fat pad was sharply excised. Tourniquet was deflated at 4 minutes and adequate perfusion was noted to return to the extremity. Areas of active bleeding were cauterized with the Bovie and Aquamantys. The tibial pins for the tibial array were placed through 2 stab incisions along the mid tibial shaft. The tibial array was placed onto the pins and secured. The distal femoral pins for the femoral array were placed into the medial femoral condyle. The femoral array was affixed to the pins. The registration device was then placed into the distal femur just distal to the array pins along the medial femoral condyle. The tibial registration device was placed along the medial tibia distal to the planned tibial resection. The hip center, medial and lateral malleoli were registered. Registration points along the distal femur and proximal tibia were captured. Osteophytes were removed with a rongeur. Range of motion of the knee was then assessed with the computer. The patient had 1 degree of recurvatum and 0.5 degrees of varus. Preliminary ligament balancing was performed with the tensioning spoons in both flexion and extension and these values were captured by the computer. Adjustments to the planned resection were made to balance the ligaments. The self-retaining medial and lateral retractors were then placed and secured to the leg miranda. Bone resection was then performed with computer guidance using the saw attached to the Hail Varsity robotic arm. Femoral cuts were made including anterior, posterior, and chamfer cuts. The tibial cut was then made in the same fashion. The resected bone fragments were removed with osteotomes and freed from tissue with the bovie. Lamina gasoline engine assembler was placed into the joint. Remaining meniscus and soft tissue were removed from the medial and latera (more content not included)... [facility] Comment on above: Result Comment: Elec tronically Signed By: Angus Jackson DO\.br\Date and Time Signed: 09/09/24 15:38 EDT Outpatient Surgery Discharge Instructionon 09-09-2024 Outpatient Surgery Discharge Instruction Outpatient Surgery Discharge Instruction [address] [address] Patient Discharge Instructions PERSON INFORMATION Name: ROSALIO JARQUIN Date of : 1955 Current Date: 09/09/2024 11:33:46 PHYSICIANS Admitting Physician: Angus Jackson DO Discharge Diagnosis: ROSALIO JARQUIN has been given the following list of follow-up instructions, prescriptions, and patient education materials: IF UNABLE TO CONTACT YOUR PHYSICIAN AND YOU FEEL IT IS AN EMERGENCY, GO TO THE NEAREST EMERGENCY ROOM OR CALL 911 Debi ROSALIO JARQUIN Giuliano, have received the attached patient education materials/instruction s and have verbalized understanding: May we do a follow up call? Yes No I was present when discharge instructions were given Patient Signature Date Clinican/Nurse Signature Date Follow up: With: Address: When: Angus Jackson [address] [place] [id number] [facility] (1) 09/24/2024 9:00 AM Comments: Appointment has already been scheduled. Call for any problems. Pharmacy Information: You may receive a survey from [employer] asking you to rate your care experience. Your feedback is important and will help us understand what we do well and how we can improve the quality of care we provide to you, your loved ones and our community. It???s an honor to serve you. Thank you for choosing [facility] HERE ARE THE MEDICATION CHANGES THAT OCCURRED DURING YOUR HOSPITAL STAY New Medications [facility] #[id number], [address] [place], [place] [id number], [phone] acetaminophen-oxycodo ne (Percocet 5 mg-325 mg oral tablet) 1-2 tab(s) Oral q4hr. Refills: 0. aspirin (aspirin 81 mg Oral EC Tab) 1 Tablets By Mouth every day for 90 Days. Refills: 0. celecoxib (CeleBREX 200 mg Cap) 1 Capsules By Mouth every day. start after finishing ketorolac. Refills: 0. cephalexin (Keflex 500 mg Cap) 1 Capsules By Mouth every 8 hours for 7 Days. Refills: 0. docusate (Colace 100 mg Cap) 1 Capsules By Mouth 2 times a day as needed for constipation. Refills: 0. gabapentin (gabapentin 300 mg Cap) 1 Capsules By Mouth 3 times a day for 14 Days. Refills: 0. ketorolac (ketorolac 10 mg Tab) 1 Tablets By Mouth every 8 hours for 3 Days. Refills: 0. Medications to Continue with No Changes Other Medications escitalopram (escitalopram 10 mg Tab) 1 Tablets By Mouth every day. lamotrigine (lamotrigine 25 mg Tab) 1 Tablets By Mouth at bedtime. losartan (losartan 50 mg Tab) 1 Tablets By Mouth every day. No Longer Take the Following Medications loratadine (loratadine 10 mg Tab) 1 Tablets By Mouth every day. PATIENT EDUCATION INFORMATION Instructions: [place], [place] [facility] DISCHARGE INSTRUCTIONS: TOTAL KNEE ARTHROPLASTY INCISION CARE: The bandage may be changed by your home Physical Therapist at 7 days postoperatively and worn an additional 7 days. A new Mepilex bandage should then be placed. The bandage is waterproof, so you may shower at home. Steri-strips (paper tape strips) may be applied to the incision if any slight wound separation is noted. These should remain in place for five days and then they may come off in the shower. Please notify the office if any increase in redness, tenderness, drainage, fever, or wound separation is noted beyond this point. MEDICATIONS: You may resume your home medications at the time of discharge. Arixtra and Lovenox are mild blood thinners that prevent the development of blood clots in the legs. One of these has been used during your hospitalization. After discharge home you should continue the use of two stomach coated baby Aspirin tablets daily with your largest meal for 30 days after home discharge. Please notify your doctor if you have a stomach sensitivity to Aspirin or history of previous stomach ulcers. Pain medication has been prescribed as well. You may continue to use the pain medication every four hours as needed. Any narcotic pain medication can cause side effects including stomach upset, constipation, or light-headedness. You should not drive or operate machinery, or drink alcohol while using the narcotic pain medication. You should not use other pain medications with this prescription pain medication unless further directed by your physician. PHYSICAL THERAPY Continue the range of motion and strengthening exercises initiated by Physical Therapy in the hospital. Continue weight bearing, as ordered, to the operated knee as directed in Physical Therapy. This will be with the use of a walker or crutches initially. Physical thera (more content not included)... [facility] XR KNEE 1 OR 2 VIEWS RIGHTon 09-09-2024 Exam Date/Time: 09/09/2024 11:57 EDT Reason for Exam: Post-op evaluation;Other (please specify) Report IMPRESSION: NEGATIVE POSTOPERATIVE RIGHT KNEE ARTHROPLASTY.. CLINICAL HISTORY: Post-op evaluation COMPARISON: NONE. FINDINGS: 2 views of the right knee. Placement of bipolar noncemented right knee replacement. No fracture. No abnormal lucency bone prosthetic interface. Ordering Provider: Angus Jackson FINAL REPORT Dictated: 09/09/2024 12:49 pm Panfilo Isabel MD Signed (Electronic Signature): 09/09/2024 12:49 pm Signed by: Panfilo Isabel MD Transcribed by: ARNOLD Technologist: NICKI [facility] Radiology, Radiologist, - 09/09/2024 Exam Date/Time: 09/09/2024 11:57 EDT Reason for Exam: Post-op evaluation;Other (please specify) Report IMPRESSION: NEGATIVE POSTOPERATIVE RIGHT KNEE ARTHROPLASTY.. CLINICAL HISTORY: Post-op evaluation COMPARISON: NONE. FINDINGS: 2 views of the right knee. Placement of bipolar noncemented right knee replacement. No fracture. No abnormal lucency bone prosthetic interface. Ordering Provider: Angus Jackson FINAL REPORT Dictated: 09/09/2024 12:49 pm Panfilo Isabel MD Signed (Electronic Signature): 09/09/2024 12:49 pm Signed by: Panfilo Isabel MD Transcribed by: ARNOLD Technologist: NICKI [facility] Radiology Study observation (narrative) [facility] XR KNEE 1 OR 2 VIEWS RIGHTOr dered By: Radiologist Radiology on 09-09-2024 [facility] Work Phone: XR Knee 1 or 2 Views Righton 09-09-2024 XR Knee 1 or 2 Views Right Exam Date/Time: 09/09/2024 11:57 EDT Reason for Exam: Post-op evaluation;Other (please specify) Report IMPRESSION: NEGATIVE POSTOPERATIVE RIGHT KNEE ARTHROPLASTY.. CLINICAL HISTORY: Post-op evaluation COMPARISON: NONE. FINDINGS: 2 views of the right knee. Placement of bipolar noncemented right knee replacement. No fracture. No abnormal lucency bone prosthetic interface. Ordering Provider: Angus Jackson FINAL REPORT Dictated: 09/09/2024 12:49 pm Panfilo Isabel MD Signed (Electronic Signature): 09/09/2024 12:49 pm Signed by: Panfilo Isabel MD Transcribed by: ARNOLD Technologist: NICKI [facility] C Urineon 08-26-2024 Bacteria identified Cx Nom (U) Microbiology PROCEDURE: Urine Culture [R1] SOURCE: U CleanCatch BODY SITE: COLLECTED DATE/TIME: 08/24/2024 12:45 EST RECEIVED DATE/TIME: 08/24/2024 14:07 EST START DATE/TIME: 08/24/2024 14:07 EST FREE TEXT SOURCE: Angus Jackson DO, DO, Jason A FINAL REPORTS Final Report [] Verified Date/Time: 08/26/2024 09:20 EST 300 cfu/ml Mixed skin contaminants Performing Locations R1: [facility], [address] [place] [address], [address] , , [facility] Comment on above: Performed By: #### 2 [id number] #### Garcia [facility] [address] [place] [address] CT LOWER EXTREMITY W/O CONTR AST on 08-26-2024 Exam Date/Time: 08/24/2024 14:01 EST Reason [...] low as reasonably achievable. Ordering Provider: Angus Jackson FINAL REPORT Dictated: 08/26/2024 10:09 am José Macdonald M.D. Signed (Electronic Signature): 08/26/2024 10:09 am Signed by: José Macdonald M.D. Transcribed by: ARNOLD Technologist: ARIE [facility] Radiology, Radiologist, - 08/26/2024 Exam Date/Time: 08/24/2024 [...] low as reasonably achievable. Ordering Provider: Angus Jackson FINAL REPORT Dictated: 08/26/2024 10:09 am José Macdonald M.D. Signed (Electronic Signature): 08/26/2024 10:09 am Signed by: José Macdonald M.D. Transcribed by: ARNOLD Technologist: ARIE [facility] CT LOWER EXTREMITY W/O CONTR AST RIGHTOrdered By: Radiologist Radiology on 08-26-2024 [facility] Work Phone: CT Lower Extremity w/o Contr [...] low as reasonably achievable. Ordering Provider: Angus Jackson FINAL REPORT Dictated: 08/26/2024 10:09 am José Macdonald M.D. Signed (Electronic Signature): 08/26/2024 10:09 am Signed by: José Macdonald M.D. Transcribed by: ARNOLD Technologist: ARIE [facility] XR Chest 2 Viewson XR Chest [...] Carlos Morgan MD Transcribed by: ARNOLD Technologist: MACHINE SILK SCREEN PRINTER Normal [facility] ABO/Rh Retypeon 08-24-2024 ABO/Rh Retype Interp Positive Invalid Interpretation Code [facility] Comment on above: Performed By: #### 1 [id number] #### [facility] [address] [place] [address] BLOOD BANKOrdered By: Elsie Jarrell on 08-24-2024 ABO/Rh Retype Interp Positive Invalid Interpretation Code [facility] BB Subsection BMPon 08-24-2024 Anion gap [Moles/Vol] 12 mmol/L Normal 6-16 [facility] Comment on above: Performed By: #### 2 [id number] #### [facility] [address] [place] [address] Calcium [Mass/Vol] 9.1 mg/dL Normal 8.9-11.1 [facility] Comment on above: Performed By: #### 2 [id number] #### [facility] [address] [place] [address] Chloride [Moles/Vol] 100 mmol/L Low 101-111 [facility] Comment on above: Performed By: #### 2 [id number] #### [facility] [address] [place] [address] CO2 [Moles/Vol] 27 mmol/L Normal 21-31 [facility] Comment on above: Performed By: #### 2 [id number] #### [facility] [address] [place] [address] Creatinine [Mass/Vol] 1.2 mg/dL Normal 0.5-1.3 [facility] Comment on above: Performed By: #### 2 [id number] #### [facility] [address] [place] [address] Glucose [Mass/Vol] 97 mg/dL Normal 55-199 [facility] Comment on above: Performed By: #### 2 [id number] #### [facility] [address] [place] [address] Potassium [Moles/Vol] 4.7 mmol/L Normal 3.5-5.3 [facility] Comment on above: Performed By: #### 2 [id number] #### [facility] [address] [place] [address] Sodium [Moles/Vol] 134 mmol/L Low 135-145 [facility] Comment on above: Performed By: #### 2 [id number] #### [facility] [address] [place] [address] Urea nitrogen [Mass/Vol] 16 mg/dL Normal 5-21 [facility] Comment on above: Performed By: #### 2 [id number] #### [facility] [address] [place] [address] Urea nitrogen/Creatinine [Mass ratio] 13 No Units Normal 10-20 [facility] Comment on above: Performed By: #### 2 [id number] #### [facility] [address] [place] [address] CBC w/ Auto Diffon 5 Basophils/100 WBC (Bld) 0.5 % Normal 0.0-2.0 [facility] Comment on above: Performed By: #### 2 [id number] #### [facility] [address] [place] [address] Basophils/Leukocytes Auto (Bld) [Pure # fraction] 0.0 E9/L Normal 0.0-0.2 [facility] Comment on above: Performed By: #### 2 [id number] #### [facility] [address] [place] [address] Eosinophils (Bld) [#/Vol] 0.1 E9/L Normal 0.0-0.5 [facility] Comment on above: Performed By: #### 2 [id number] #### [facility] [address] [place] [address] Eosinophils/100 WBC (Bld) 0.9 % Normal 0.0-8.0 [facility] Comment on above: Performed By: #### 2 [id number] #### [facility] [address] [place] [address] Erythrocyte distribution width (RBC) [Ratio] 13.3 % Normal 10.9-14.2 [facility] Comment on above: Performed By: #### 2 [id number] #### [facility] [address] [place] [address] Hematocrit (Bld) [Volume fraction] 40.5 % Normal 37.7-49.0 [facility] Comment on above: Performed By: #### 2 [id number] #### [facility] [address] [place] [address] Hemoglobin (Bld) [Mass/Vol] 13.9 g/dL Normal 13.5-17.5 [facility] Comment on above: Performed By: #### 2 [id number] #### [facility] [address] [place] [address] Lymphocytes (Bld) [#/Vol] 0.9 E9/L Low 1.0-4.0 [facility] Comment on above: Performed By: #### 2 [id number] #### [facility] [address] [place] [address] Lymphocytes/100 WBC (Bld) 10.1 % Low 14.0-50.0 [facility] Comment on above: Performed By: #### 2 [id number] #### [facility] [address] [place] [address] MCH (RBC) [Entitic mass] 31.4 pg Normal 27.0-34.0 [facility] Comment on above: Performed By: #### 2 [id number] #### [facility] [address] [place] [address] MCHC (RBC) [Mass/Vol] 34.3 g/dL Normal 31.4-36.0 [facility] Comment on above: Performed By: #### 2 [id number] #### [facility] [address] [place] [address] MCV (RBC) [Entitic vol] 91.5 fL Normal 80.0-100.0 [facility] Comment on above: Performed By: #### 2 [id number] #### [facility] [address] [place] [address] Monocytes (Bld) [#/Vol] 0.9 E9/L Normal 0.2-1.0 [facility] Comment on above: Performed By: #### 2 [id number] #### [facility] [address] [place] [address] Neutrophils (Bld) [#/Vol] 7.0 E9/L Normal 2.0-7.5 [facility] Comment on above: Performed By: #### 2 [id number] #### [facility] [address] [place] [address] Neutrophils/100 WBC (Bld) 78.2 % High 36.0-75.0 [facility] Comment on above: Performed By: #### 2 [id number] #### [facility] [address] [place] [address] Platelet mean volume (Bld) [Entitic vol] 9.1 fL Normal 6.4-10.8 [facility] Comment on above: Performed By: #### 2 [id number] #### [facility] [address] [place] [address] Platelets (Bld) [#/Vol] 334.0 E9/L Normal 150.0-500.0 [facility] Comment on above: Performed By: #### 2 [id number] #### [facility] [address] [place] [address] RBC (Bld) [#/Vol] 4.4 E12/L Normal 4.3-5.9 [facility] Comment on above: Performed By: #### 2 [id number] #### [facility] [address] [place] [address] WBC corrected for nucl RBC Auto (Bld) [#/Vol] 9.0 E9/L Normal 4.0-11.0 [facility] Comment on above: Performed By: #### 2 [id number] #### [facility] [address] [place] [address] CHEMISTRYOrdered By: SYSTEM SYSTEM on 08-24-2024 Anion [...] AST RIGHTon 08-24-2024 Radiology Study observation (narrative) [facility] HEMATOLOGYOrdered By: SYSTEM SYSTEM on 08-24-2024 [...] 08-24-19 25 BACTERIA:PRTHR:PT:URI NE:ORD:AUTOMATED Trace Trace /HPF [facility] BILIRUBIN:PRTHR:PT:UR INE:ORD:TEST STRIP.AUTOMATED Negative Negative mg/dL [facility] EPITHELIAL CELLS.SQUAMOUS:NARIC: PT:URINE SED:QN:AUTOMATED COUNT 0-2 CD:[id number] [facility] CLARITY:TYPE:PT:URINE :NOM: Clear Clear [facility] CLASS:TYPE:PT:URINE COLLECTION METHOD:NOM:* Clean Catch [facility] COLOR:TYPE:PT:URINE:N OM:AUTO Yellow Yellow [facility] Comment on above: Microscopic readings are only performed on those samples that meet specific criteria set forth by [facility]. [facility] PH:LSCNC:PT:URINE:QN: TEST STRIP 6.0 5.0 - 9.0 [facility] SPECIFIC GRAVITY:RDEN:PT:URINE :QN:TEST STRIP 1.014 1.005 - 1.030 [facility] GLUCOSE:PRTHR:PT:URIN E:ORD:TEST STRIP Negative Negative mg/dL [facility] HEMOGLOBIN:MCNC:PT:UR INE:SEMIQN:TEST STRIP.AUTOMATED Negative Negative mg/dL [facility] HYALINE CASTS:PRTHR:PT:URINE SED:ORD:MICROSCOPY.LI GHT 0-3 [facility] Interpretation and review of laboratory results Abnormal [facility] KETONES:PRTHR:PT:URIN E:ORD:TEST STRIP.AUTOMATED Negative Negative mg/dL [facility] LEUKOCYTE ESTERASE:PRTHR:PT:URI NE:ORD:TEST STRIP.AUTOMATED 25 Briseyda/uL Negative CD:[id number] [facility] LEUKOCYTES:NARIC:PT:U RINE SED:QN:AUTOMATED COUNT 6-15 Abnormal [facility] MUCUS:PRTHR:PT:URINE: ORD:AUTOMATED Negative Negative CD:[id number] [facility] NITRITE:PRTHR:PT:URIN E:ORD:TEST STRIP.AUTOMATED Negative Negative mg/dL [facility] PROTEIN:PRTHR:PT:URIN E:ORD:TEST STRIP Trace Abnormal Negative mg/dL [facility] UROBILINOGEN:MCNC:PT: URINE:SEMIQN:TEST STRIP 2 mg/dL Abnormal Negative mg/dL [facility] Original Ordering Provider: DO Angus Jackson [facility] UA with Cult Rflxon 08-24-19 25 Bacteria Auto Ql (U) Trace Normal Trace Fish er [facility] Comment on above: Performed By: #### 4 [id number] #### [facility] [address] [place] [address] Bilirubin Ql (U) Negative Normal Negative [facility] Comment on above: Performed By: #### 4 [id number] #### [facility] [address] [place] [address] Clarity (U) Clear Normal Clear [facility] Comment on above: Performed By: #### 4 [id number] #### [facility] [address] [place] [address] Color (U) Yellow Normal Yellow [facility] Comment on above: Result Comment: Micr oscopic readings are only performed on those samples that meet specific criteria set forth by [facility]. Performed By: #### 4 [id number] #### [facility] [address] [place] [address] Epithelial cells.squamous Auto (Urine sed) [#/Area] 0-2 Invalid Interpretation Code [facility] Comment on above: Performed By: #### 4 [id number] #### [facility] [address] [place] [address] Glucose Ql (U) Negative Normal Negative [facility] Comment on above: Performed By: #### 4 [id number] #### [facility] [address] [place] [address] Hemoglobin Auto test strip (U) [Mass/Vol] Negative Normal Negative [facility] Comment on above: Performed By: #### 4 [id number] #### [facility] [address] [place] [address] Hyaline casts LM Ql (Urine sed) 0-3 Normal 0-3 [facility] Comment on above: Performed By: #### 4 [id number] #### [facility] [address] [place] [address] Ketones Auto test strip Ql (U) Negative Normal Negative [facility] Comment on above: Performed By: #### 4 [id number] #### [facility] [address] [place] [address] Leukocyte esterase Auto test strip Ql (U) 25 Briseyda/uL Normal Negative [facility] Comment on above: Performed By: #### 4 [id number] #### [facility] [address] [place] [address] Mucus Auto Ql (U) Negative Normal Negative [facility] Comment on above: Performed By: #### 4 [id number] #### [facility] [address] [place] [address] Nitrite Auto test strip Ql (U) Negative Normal Negative [facility] Comment on above: Performed By: #### 4 [id number] #### [facility] [address] [place] [address] pH (U) 6.0 [pH] Invalid Interpretation Code 5.0-9.0 [facility] Comment on above: Performed By: #### 4 [id number] #### [facility] [address] [place] [address] Protein Ql (U) Trace Abnormal Negative [facility] Comment on above: Performed By: #### 4 [id number] #### [facility] [address] [place] [address] Specific gravity (U) [Rel density] 1.014 Invalid Interpretation Code 1.005-1.030 [facility] Comment on above: Performed By: #### 4 [id number] #### [facility] [address] [place] [address] Urobilinogen (U) [Mass/Vol] 2 mg/dL Abnormal Negative [facility] Comment on above: Performed By: #### 4 [id number] #### [facility] [address] [place] [address] WBC Auto (Urine sed) [#/Area] 6-15 Abnormal 0-5 [facility] Comment on above: Performed By: #### 4 [id number] #### [facility] [address] [place] [address] Type of Urine collection method Clean Catch Normal [facility] Comment on above: Performed By: #### 4 [id number] #### [facility] [address] [place] [address] URINALYSISOrdered By: SYSTEM SYSTEM on 08-24-2024 Bacteria [...] that meet specific criteria set forth by [facility]. Epithelial cells.squamous Auto (Urine sed) [#/Area] [...] 2 mg/dL Invalid Interpretation Code Negativemg/d L FT UA Auto SS WBC Auto (Urine sed) [#/Area] 6-15 graded/HPF Invalid Interpretation Code 0-5graded/HP F FT UA Auto SS URINALYSISOrdered By: Anastacia Oney on 08-24-2024 UA Spec Desc Clean Catch (08/24/24 12:45 PM) Normal FT UA Auto SS eGFRon 08-24-2024 eGFR 64 mL/min/1.73 m2 Normal >=59 [facility] Comment on above: Performed By: #### 1 [id number] #### [facility] [address] [place] [address] No Panel Informationon 05-25 Rowan Bojorquez MA [...] and draped in the usual sterile fashion. [facility] XR Knee - left 1 or 2 [...] subluxation of the right patella is noted [facility] Radiology Study observation (narrative) [facility] CT LUNG CANCER SCREENINGon 0 01-14-2022 [...] by: SIMRAN MATIAS Date: 2022-01-14 09:21 Normal [facility] CHEMISTRYOrdered By: SYSTEM SYSTEM on 01-03-2022 Anion [...] Chino Mcqueen MD 08/01/20 Final result Normal [facility] No acute abnormality of the cervical spine. Multilevel degenerative changes. [place], [place] [employer], [employer] Incoming Radiant Results From [employer] - 08/01/2020 1:22 PM EST EXAMINATION: CT [...] of the cervical spine. Multilevel degenerative changes. [place], [place] EXAMINATION: CT OF THE CERVICAL SPINE [...] There is no prevertebral soft tissue swelling. [place], [place] CT HEAD WO CONTRASTon 2020 CT [...] Randolph Roman MD 08/01/20 Final result Normal [facility] Cl[facility], [employer] Incoming Radiant Results From [employer] - 08/01/2020 1:20 PM EST EXAMINATION: CT [...] fossa. 2. No convincing acute intracranial abnormality. [facility], [place] EXAMINATION: CT OF THE HEAD WITHOUT [...] of the visualized skull or soft tissues. [place], [place] 1. Streak artifact from dental amalgam limits evaluation of the posterior fossa. 2. No convincing acute intracranial abnormality. [place], [place] CT THORACIC SPINE WO CONTRAS Ton [...] Panfilo Middleton MD 08/01/20 Final result Normal [facility] Cl[facility], [facility] Incoming Radiant Results From [employer] - 08/01/2020 1:29 PM EST EXAMINATION: CT [...] fracture or malalignment of the thoracic spine. [place], [place] EXAMINATION: CT OF THE THORACIC SPINE [...] SOFT TISSUES: No paraspinal mass is seen. [facility] [place] No acute fracture or malalignment of the [facility] spine. [facility]OW LEFT (MIN 3 VIEWS)o n [...] Randolph Roman MD 08/01/20 Final result Normal [facility], [facility] Incoming Radiant Results From [employer] [...] the left elbow. 2. Minimal degenerative changes. [place], [place] EXAMINATION: THREE XRAY VIEWS OF THE [...] The soft tissues demonstrate no acute abnormality. [facility] [place] 1. No acute osseous abnormality identified of the left elbow. 2. Minimal degenerative changes. [place], [place] Vital Signs Date Time Vital Sign Value Performing Clinician Facility 12-08-2024 08:08-0400 Body height 185.4 cm Jaymie Boston MD Work Phone: [facility] 12-08-2024 08:08-0400 Body mass index (BMI) [Ratio] 25.07 kg/m2 Jaymie Boston MD Work Phone: [facility] 12-08-2024 08:08-0400 Body weight 86.18 kg Jaymie Boston MD Work Phone: [facility] 10-29-2024 14:29-0400 Body height 180.3 cm Angus Jackson DO Work Phone: [facility] 10-29-2024 14:29-0400 Body mass index (BMI) [Ratio] 26.78 kg/m2 Angus Brown DO Work Phone: [facility] 10-29-2024 14:29-0400 Body weight 87.09 kg Angus Brown DO Work Phone: [facility] 09-24-2024 08:59-0400 Body height 180.3 cm Angus Brown DO Work Phone: [facility] 09-24-2024 08:59-0400 Body mass index (BMI) [Ratio] 26.78 kg/m2 Angus Jackson DO Work Phone: [facility] 09-24-2024 08:59-0400 Body weight 87.09 kg Angus Jackson DO Work Phone: [facility] 09-09-2024 15:36-0400 Heart rate 53 /min Angus Jackson [facility] 09-09-2024 15:36-0400 SaO2% (BldA) [Mass fraction] 98 % Angus Jackson [facility] 09-09-2024 15:35-0400 Diastolic blood pressure 84 mm[Hg] Angus Brown [facility] 09-09-2024 15:35-0400 Mean blood pressure 114 mm[Hg] Angus Brown [facility] 09-09-2024 15:35-0400 Systolic blood pressure 174 mm[Hg] Angus Brown [facility] 09-09-2024 15:35-0400 Respiratory rate 16 /min Angus Jackson [facility] 09-09-2024 12:18-0400 Heart rate 57 /min Angus Jackson [facility] 09-09-2024 12:18-0400 SaO2% (BldA) [Mass fraction] 95 % Angus Jackson [facility] 09-09-2024 12:16-0400 Diastolic blood pressure 77 mm[Hg] Angus Jackson [facility] 09-09-2024 12:16-0400 Mean blood pressure 103 mm[Hg] Angus Jackson [facility] 09-09-2024 12:16-0400 Systolic blood pressure 156 mm[Hg] Angus Jackson [facility] 09-09-2024 12:16-0400 Respiratory rate 18 /min Angus Jackson [facility] 09-09-2024 12:10-0400 Blood Pressure Location Angus Jackson [facility] 09-09-2024 12:10-0400 Body temperature 98.24 [degF] Angus Jackson [facility] 09-09-2024 12:10-0400 Diastolic blood pressure 78 mm[Hg] Angus Jackson [facility] 09-09-2024 12:10-0400 Heart rate 53 /min Angus Jackson [facility] 09-09-2024 12:10-0400 Mean blood pressure 101 mm[Hg] Angus Jackson [facility] 09-09-2024 12:10-0400 Respiratory rate 25 /min Angus Jackson [facility] 09-09-2024 12:10-0400 SaO2% (BldA) [Mass fraction] 94 % Angus Jackson [facility] 09-09-2024 12:10-0400 Systolic blood pressure 147 mm[Hg] Angus Jackson [facility] 09-09-2024 12:00-0400 Mean blood pressure 77 mm[Hg] Angus Jackson [facility] 09-09-2024 12:00-0400 Respiratory rate 17 /min Angus Jackson [facility] 09-09-2024 11:55-0400 Blood Pressure Location Angus Jackson [facility] 09-09-2024 11:55-0400 Mean blood pressure 84 mm[Hg] Angus Jackson [facility] 09-09-2024 11:55-0400 Respiratory rate 14 /min Angus Jackson [facility] 09-09-2024 11:43-0400 Body temperature 98.06 [degF] Angus Jackson [facility] 09-09-2024 11:20-0400 Respiratory rate 12 /min Angus Jackson [facility] 09-09-2024 05:58-0400 Mean blood pressure 112 mm[Hg] Angus Jackson [facility] 09-09-2024 05:56-0400 Body temperature 97.52 [degF] Angus Jackson [facility] 09-09-2024 05:56-0400 Heart rate 60 /min Angus Jackson [facility] 09-01-2024 09:49-0500 Body height 185.[address] [facility] 09-01-2024 09:49-0500 Body mass index (BMI) [Ratio] 25.1 kg/m2 [facility] 09-01-2024 09:49-0500 Body weight 86.[address] [facility] 09-01-2024 09:49-0500 Diastolic blood pressure 73 mm[Hg] [facility] 09-01-2024 09:49-0500 Heart rate 66 /min [facility] 09-01-2024 09:49-0500 Systolic blood pressure 169 mm[Hg] [facility] 08-24-2024 12:42-0500 Diastolic blood pressure 80 mm[Hg] Angus Mann [facility] 08-24-2024 12:42-0500 Heart rate 76 /min Angus Jackson [facility] 08-24-2024 12:42-0500 Mean blood pressure 103 mm[Hg] Angus Jackson [facility] 08-24-2024 12:42-0500 Systolic blood pressure 149 mm[Hg] Angus Mann [facility] 08-24-2024 12:41-0500 Heart rate 60 /min Angustaina Jackson [facility] 08-24-2024 12:41-0500 SaO2% (BldA) [Mass fraction] 99 % Angus Jackson [facility] 08-24-2024 12:41-0500 Body temperature 98.24 [degF] Angustaina Jackson [facility] 08-24-2024 12:41-0500 Blood Pressure Location Angus Jackson [facility] 08-24-2024 12:41-0500 Diastolic blood pressure 70 mm[Hg] Angus Mann [facility] 08-24-2024 12:41-0500 Mean blood pressure 97 mm[Hg] Angus Mann [facility] 08-24-2024 12:41-0500 Systolic blood pressure 151 mm[Hg] Angus Mann [facility] 08-24-2024 12:40-0500 Respiratory rate 16 /min Angus Mann [facility] 08-06-2024 10:10-0500 Body height 180.3 cm Angus Jackson DO Work Phone: [facility] 08-06-2024 10:10-0500 Body mass index (BMI) [Ratio] 26.78 kg/m2 Angus Jackson DO Work Phone: [facility] 08-06-2024 10:10-0500 Body temperature 97.5 [degF] Angus Jackson DO Work Phone: [facility] 08-06-2024 10:10-0500 Body weight 87.09 kg Angus Jackson DO Work Phone: [facility] 05-25-2024 15:41-0500 Body height 181.6 cm [facility] Work Phone: [facility] 05-25-2024 15:41-0500 Body mass index (BMI) [Ratio] 26.41 kg/m2 [facility] Work Phone: [facility] 05-25-2024 15:41-0500 Body weight 87.09 kg [facility] Work Phone: [facility] 01-30-2024 10:58-0400 Body height 185.[address] [facility] 01-30-2024 10:58-0400 Body mass index (BMI) [Ratio] 24.6 kg/m2 [facility] 01-30-2024 10:58-0400 Body weight 84.[address] [facility] 01-30-2024 10:58-0400 Diastolic blood pressure 68 mm[Hg] [facility] 01-30-2024 10:58-0400 Heart rate 57 /min [facility] 01-30-2024 10:58-0400 Systolic blood pressure 149 mm[Hg] [facility] 09-19-2023 08:30-0400 Body height 185.[address] [facility] 09-19-2023 08:30-0400 Body mass index (BMI) [Ratio] 25.6 kg/m2 [facility] 09-19-2023 08:30-0400 Body weight 87.[address] [facility] 09-19-2023 08:30-0400 Diastolic blood pressure 72 mm[Hg] [facility] 09-19-2023 08:30-0400 Heart rate 57 /min [facility] 09-19-2023 08:30-0400 Systolic blood pressure 162 mm[Hg] [facility] 06-06-2023 10:15-0500 Body height 185.42 cm Elaine Mejia Other [facility] Other 06-06-2023 10:15-0500 Body mass index (BMI) [Ratio] 25.54 kg/m2 Elaine Mejia Other [employer] Other 06-06-2023 10:15-0500 Body weight 87.82 kg Elaine Mejia Other [employer] Other 06-06-2023 10:15-0500 Diastolic blood pressure 70 mm[Hg] Elaine Mejia Other [employer] Other 06-06-2023 10:15-0500 Systolic blood pressure 159 mm[Hg] Elaine Mejia Other [employer] Other 04-19-2023 09:30-0400 Body height 185.42 cm Elaine Mejia Other [employer] Other 04-19-2023 09:30-0400 Body mass index (BMI) [Ratio] 24.7 kg/m2 Elaine Mejia Other [facility] Other 04-19-2023 09:30-0400 Body weight 84.91 kg Elaine Mejia Other [facility] Other 04-19-2023 09:30-0400 Diastolic blood pressure 77 mm[Hg] Elaine Mejia Other [employer] Other 04-19-2023 09:30-0400 Systolic blood pressure 159 mm[Hg] Elaine Jackie Other [facility] Other 01-06-2022 07:59-0400 Body temperature 97.7 [degF] Kirill Simon [facility] 01-06-2022 07:59-0400 Diastolic blood pressure 88 mm[Hg] Kirill Simon [facility] 01-06-2022 07:59-0400 Heart rate 60 /min Kirill Simon [facility] 01-06-2022 07:59-0400 Respiratory rate 15 /min Kirill Alfred [facility] 01-06-2022 07:59-0400 SaO2% (BldA) [Mass fraction] 98 % Kirill Simon [facility] 01-06-2022 07:59-0400 Systolic blood pressure 202 mm[Hg] Kirill Simon [facility] 08-01-2020 13:03-0500 Body Temperature 97.59 [degF] [place] 08-01-2020 12:35-0500 BP Diastolic 73 mm[Hg] [place], [place] 08-01-2020 12:35-0500 BP Systolic 149 mm[Hg] [place] 08-01-2020 12:35-0500 Pulse (Heart Rate) 76 /min [place] 08-01-2020 12:35-0500 Pulse Oximetry 99 % [place] 08-01-2020 12:35-0500 Respiratory Rate 18 /min [place] Encounters Encounter Date Encounter Type Care Provider Facility Start: 12-08-2024 End: 12-08-2024 Office outpatient new 60 minutes Jaymie Boston MD Work Phone: [facility] Comment on above: Lumbar pain; Lumbar radiculopathy Start: 12-08-2024 End: 12-08-2024 Subsequent hospital visit by physician Alanis Jovel X-Ray 2 [facility] Comment on above: Lumbar pain Start: 12-08-2024 End: 12-08-2024 ambulatory [facility] Start: 10-29-2024 End: 10-29-2024 Patient encounter procedure Angus Jackson DO Work Phone: [facility] Comment on above: Status post total kn ee replacement, right (Primary Dx) Start: 10-29-2024 End: 10-29-2024 ambulatory ANGUS JACKSON Not Available Start: 10-29-2024 End: 10-29-2024 Bamboo flowsheet Inés Kelbley DIRECTOR OF RECRUITING [facility] Start: 10-29-2024 End: 10-29-2024 Bamboo flowsheet Inés Kelbley DIRECTOR OF RECRUITING [facility] Start: 10-29-2024 End: 10-29-2024 ambulatory ANGUS JACKSON Not Available Start: 10-29-2024 End: 10-29-2024 ambulatory Inés Kelbley DIRECTOR OF RECRUITING [facility] Comment on above: Localized osteoarthr itis of right knee (Primary Dx); Status post total knee replacement, right Start: 10-27-2024 End: 10-27-2024 Bamboo flowsheet Inés Kelbley DIRECTOR OF RECRUITING [facility] Start: 10-27-2024 End: 10-27-2024 Bamboo flowsheet Inés Kelbley DIRECTOR OF RECRUITING [facility] Start: 10-27-2024 End: 10-27-2024 ambulatory Inés Kelbley DIRECTOR OF RECRUITING [facility] Comment on above: Localized osteoarthr itis of right knee (Primary Dx); Status post total knee replacement, right Start: 10-23-2024 End: 10-23-2024 Bamboo flowsheet Carson Arnoldo DIRECTOR OF RECRUITING [facility] Start: 10-23-2024 End: 10-23-2024 Bamboo flowsheet Carson Arnoldo DIRECTOR OF RECRUITING [facility] Start: 10-23-2024 End: 10-23-2024 ambulatory Carson Arnoldo DIRECTOR OF RECRUITING [facility] Comment on above: Localized osteoarthr itis of right knee (Primary Dx); Status post total knee replacement, right Start: 10-19-2024 End: 10-19-2024 Bamboo flowsheet Inés Becker DIRECTOR OF RECRUITING [facility] Start: 10-19-2024 End: 10-19-2024 Bamboo flowsheet Inés Becker DIRECTOR OF RECRUITING [facility] Start: 10-19-2024 End: 10-19-2024 ambulatory Inés Becker DIRECTOR OF RECRUITING [facility] Comment on above: Status post total kn ee replacement, right (Primary Dx); Localized osteoarthritis of right knee Start: 10-15-2024 End: 10-15-2024 Bamboo flowsheet Cassia Munoz PT [facility] Start: 10-15-2024 End: 10-15-2024 Bamboo flowsheet Cassia Munoz PT [facility] Start: 10-15-2024 End: 10-15-2024 ambulatory Cassia Munoz PT [facility] Comment on above: Localized osteoarthr itis of right knee (Primary Dx); Status post total knee replacement, right Start: 10-13-2024 End: 10-13-2024 Bamboo flowsheet Inés Becker DIRECTOR OF RECRUITING [facility] Start: 10-13-2024 End: 10-13-2024 Bamboo flowsheet Inés Becker DIRECTOR OF RECRUITING [facility] Start: 10-13-2024 End: 10-13-2024 ambulatory Inés Becker DIRECTOR OF RECRUITING [facility] Comment on above: Status post total kn ee replacement, right (Primary Dx); Localized osteoarthritis of right knee Start: 10-09-2024 End: 10-09-2024 Bamboo flowsheet Cassia Mnuoz PT [facility] Start: 10-09-2024 End: 10-09-2024 Bamboo flowsheet Cassia Munoz PT [facility] Start: 10-09-2024 End: 10-09-2024 ambulatory Cassia Munoz PT [facility] Comment on above: Status post total kn ee replacement, right (Primary Dx); Localized osteoarthritis of right knee Start: 10-06-2024 End: 10-06-2024 Bamboo flowsheet Cassia Munoz PT [facility] Start: 10-06-2024 End: 10-06-2024 Bamboo flowsheet Cassia Munoz PT [facility] Start: 10-06-2024 End: 10-06-2024 ambulatory Cassia Munoz PT [facility] Comment on above: Localized osteoarthr itis of right knee (Primary Dx); Status post total knee replacement, right Start: 09-24-2024 End: 09-24-2024 Patient encounter procedure Angus Jackson DO Work Phone: [facility] Comment on above: Status post total kn ee replacement, right (Primary Dx); Acute pain of left knee Start: 09-24-2024 End: 09-24-2024 ambulatory ANGUS JACKSON Not Available Start: 09-24-2024 End: 09-24-2024 ambulatory ANGUS JACKSON Not Available Start: 09-09-2024 End: 09-09-2024 Clinisync Result Encounter Angus Jackson DO Work Phone: [facility] Unsolicited Start: 09-09-2024 End: 09-09-2024 Clinisync Result Encounter Angus Jackson DO Work Phone: [facility] Unsolicited Start: 09-09-2024 End: 09-09-2024 Admission to same day surgery center Angus Jackson [facility] Start: 09-09-2024 End: 09-09-2024 ambulatory Angus Jackson Facility:[facility] Start: 09-07-2024 End: 09-07-2024 ambulatory Brett Mantilla MD Facility:[facility] Start: 09-01-2024 End: 09-01-2024 ambulatory [facility] Work Phone: Start: 09-01-2024 End: 09-01-2024 Patient encounter procedure [facility] Work Phone: Start: 08-24-2024 End: 08-26-2024 Clinisync Result Encounter Angus Jackson DO Work Phone: [facility] Unsolicited Start: 08-24-2024 End: 08-26-2024 Clinisync Result Encounter Angus Jackson DO Work Phone: [facility] Unsolicited Start: 08-24-2024 End: 08-24-2024 ambulatory DO Angus Jackson Facility:[facility] Start: 08-24-2024 End: 08-24-2024 Patient encounter procedure Angus Giuliano Mann [facility] Start: 08-06-2024 End: 08-06-2024 Bamboo flowsheet Angus Jackson DO Work Phone: [facility] Start: 08-06-2024 End: 08-06-2024 Bamboo flowsheet Angus Jackson DO Work Phone: [facility] Start: 08-06-2024 End: 08-06-2024 Patient encounter procedure Angus Jackson DO Work Phone: [facility] Comment on above: Osteoarthritis of pa tellofemoral joints of both knees Start: 08-06-2024 End: 08-06-2024 ambulatory ANGUSTAINA JACKSON Not Available Start: 07-13-2024 End: 07-13-2024 ambulatory Brett Mantilla MD Facility:[facility] Start: 05-25-2024 End: 05-25-2024 Patient encounter procedure [...] Start: 01-30-2024 End: 01-30-2024 Patient encounter procedure [facility] Work Phone: Start: 12-02-2023 End: 12-02-2023 ambulatory De[facility] Start: 11-11-2023 End: 11-11-2023 ambulatory Andmario albertous Franky Steeleitis Facility:[facility] Start: 10-28-2023 End: 10-28-2023 ambulatory Andmario albertous Trevoryttrung Steeleitis [facility] Start: 10-14-2023 End: 10-14-2023 ambulatory Andrius Cristinaas Cedricitis Facility:[facility] Start: 09-19-2023 End: 09-19-2023 ambulatory [facility] Work Phone: Start: 09-19-2023 End: 09-19-2023 Patient encounter procedure [facility] Work Phone: Start: 06-06-2023 End: 06-06-2023 ambulatory Elaine Mejia Other [employer] Other Start: 06-06-2023 Office outpatient vi sit 15 minutes Elaine Mejia [facility] Start: 04-25-2023 End: 04-25-2023 ambulatory Elaine Mejia Other [employer] Other Start: 04-25-2023 Telephone encounter Elaine Mejia [facility] Start: 04-19-2023 End: 04-19-2023 ambulatory Elaine Mejia Other [employer] Other Start: 04-19-2023 Patient encounter procedure Elaine Mejia [facility] Start: 01-13-2022 End: 01-14-[address] ELAINE MEJIA Facility: Start: 01-06-2022 End: 01-06-2022 Emergency department patient visit Kirill Simon [facility] Start: 01-06-2022 End: 01-06-[address] LENA MARIE Facility:[facility] Start: 01-03-2022 End: 01-03-2022 Patient encounter procedure ELAINE MEJIA [facility] Start: 10-09-2021 End: 10-09-2021 Patient encounter procedure Beth Fischerd [facility] Start: 08-01-2020 End: 08-01-2020 Emergency department patient visit FRANKIEDagoberto ESTRELLA [facility] Start: 08-01-2020 End: 08-01-2020 Emergency department patient visit Frankie Estrella Work Phone: [facility] Comment on above: Closed head injury, initial encounter (Primary Dx) Procedures Date Procedure Procedure Detail Performing Clinician Start: 12-08-2024 Radex spine lumbosac ral only bending 2/3 views Jaymie Boston MD Work Phone: Start: 10-29-2024 Radiologic examinati on knee 3 views Angus Giuliano Jackson DO Work Phone: Start: 09-24-2024 Arthrocentesis aspir &/inj major jt/bursa w/o us Angus Giuliano Jackson DO Work Phone: Start: 09-24-2024 Radiologic examinati on knee 3 views Angus Jackson DO Work Phone: Start: 09-09-2024 XR KNEE 1 OR 2 VIEWS RIGHT Angus Jackson DO Work Phone: Start: 09-09-2024 Total knee replacement Angus Jackson Start: 08-24-2024 CT LOWER EXTREMITY W /O CONTRAST RIGHT Angus Jackson DO Work Phone: Start: 08-24-2024 UA WITH CULT RFLX Angus Jackson DO Work Phone: Start: 05-25-2024 Arthrocentesis aspir [...] Alcala Work Phone: broke leg [facility] Hernia repair Angus Jackson Plan of Treatment Date Care Activity Detail Author Start: 12-04-2029 DTaP/Tdap/Td vaccine (2 - Td) DTaP/Tdap/Td vaccine (2 - Td) [place] Start: 12-04-2029 DTaP/Tdap/Td Vaccine s (3 - Td or Tdap) DTaP/Tdap/Td Vaccines (3 - Td or Tdap) [facility] Start: 2028 RSV High Risk: (Elde rly (60+) or Population) (1 - 1-dose 75+ series) RSV High Risk: (Elderly (60+) or Population) (1 - 1-dose 75+ series) [facility] Start: 03-11-2025 End: 03-11-2025 Patient encounter procedure 03/11/2025 9:00 AM EDT Office Visit [facility] [address] [place] [address] Angus Jackson DO [address] [place] [address] [facility] Start: 03-01-2025 Influenza vaccination Influenz a Vaccine (Season Ended) [facility] Start: 12-08-2024 End: 12-08-2025 XR Lumbar spine Views W flexion and W extension [facility] Service Area Work Phone: Comment on above: Expected: 12/08/2024 , Expires: 12/08/2025 Start: 10-29-2024 End: 10-29-2024 Patient encounter procedure [facility] Start: 10-29-2024 End: 10-29-2024 ambulatory 10/29/2024 9:30 AM EDT Treatment [facility] [address] [place] [address] Cassia Munoz, PT [facility] Start: 10-27-2024 End: 10-27-2024 ambulatory 10/27/2024 9:00 AM EDT Treatment [facility] [address] [place] [address] Inés Becker, DIRECTOR OF RECRUITING [facility] Start: 10-23-2024 End: 10-23-2024 ambulatory [facility] Comment on above: Arrived Start: 10-22-2024 End: 10-22-2024 Patient encounter procedure 10/22/2024 10:45 AM EDT Office Visit [facility] [address] [facility] [place] [phone] Angus Jackson DO [address] [place] [address] [facility] Start: 10-19-2024 End: 10-19-2024 ambulatory [facility] Comment on above: Arrived Start: 10-15-2024 End: 10-15-2024 ambulatory [facility] Comment on above: Localized osteoarthr itis of right knee (Primary Dx); Status post total knee replacement, right Start: 10-13-2024 End: 10-13-2024 ambulatory [facility] Comment on above: Arrived Start: 10-09-2024 End: 10-09-2024 ambulatory 10/09/2024 9:00 AM EDT Treatment [facility] [address] [place] [address] Cassia Munoz, PT [facility] Start: 10-06-2024 End: 10-06-2024 ambulatory [facility] Comment on above: Status post total kn ee replacement, right Start: 09-24-2024 End: 09-24-2024 Patient encounter procedure 09/24/2024 9:00 AM EDT Office Visit [facility] [address] [place] [phone] Angus Jackson, DO [address] [place] [address] [facility] Start: 08-24-2024 End: 08-24-2025 Urinalysis complete panel - Urine Urinalysis with reflex microscopic Lab Routine Osteoarthritis of patellofemoral joints of both knees Expected: 08/24/2024 (Approximate), Expires: 08/24/2025 [facility] Work Phone: Comment on above: Expected: 08/24/2024 (Approximate), Expires: 08/24/2025 Start: 08-06-2024 End: 08-06-2024 Patient encounter procedure 08/06/2024 10:30 AM EST Office Visit [facility] [address] [place] [phone] Angus Jackson, DO [address] [place] [address] [facility] Comment on above: Arrived Start: 03-01-2024 COVID-19 Vaccine ( season) COVID-19 Vaccine ( season) [facility] Start: 03-01-2024 Influenza vaccination Influenza Vacc ine (#1) [facility] Start: 04-27-2020 Pneumococcal vaccination Pneum ococcal Vaccine (2 of 2 - PCV20 or PCV21) [facility] Start: 04-27-2020 Pneumococcal Vaccine : 65+ Years (2 of 2 - PPSV23 or PCV20) Pneumococcal Vaccine: 65+ Years (2 of 2 - PPSV23 or PCV20) [facility] Start: 03-01-2020 Influenza vaccination Flu vaccine (# 1) [place] Start: 2018 Pneumococcal 65+ yea rs Vaccine (1 of 1 - PPSV23) Pneumococcal 65+ years Vaccine (1 of 1 - PPSV23) [place] Start: 2018 Pneumococcal Vaccine : 65+ Years (1 of 1 - PCV) Pneumococcal Vaccine: 65+ Years (1 of 1 - PCV) [facility] Start: 2003 Pneumococcal Vaccine : 65+ Years (1 of 1 - PCV) Pneumococcal Vaccine: 65+ Years (1 of 1 - PCV) [facility] Start: 2003 Screening for malign ant neoplasm of colon Colon cancer screen colonoscopy [place] Start: 2003 Shingles Vaccine (1 of 2) Shingles Vaccine (1 of 2) [place] Start: 2003 Zoster Vaccines (1 of 2) Zoster Vacc mila (1 of 2) [facility] Start: 1993 Lipid panel Lipid screen [place], [place] Start: 1971 Hepatitis C screening Hepatitis C Sc [facility] Start: 1953 Abdominal aortic aneurysm screening AAA screen [place], [place] Start: 1953 Hepatitis C screening Hepatitis C sc [place], [place] Start: 1953 Lipid panel Lipid Panel [facility] Start: 1953 Medicare Annual Well ness Visit Medicare Annual Wellness Visit (AWV) [facility] Start: 1955 Screening for malign ant neoplasm of colon [facility] CT Chest WO contrast [facility] XR Lumbar spine 2 or 3 Views [facility] Immunizations Immunization Date Immunization Notes Care Provider Fa cility 04-19-2023 influenza virus vaccine, unspecified formulation [facility] 04-19-2023 influenza, high dose seasonal, preservative-free Elaine Mejia Other [employer] Other 09-30-2020 COVID-19, mRNA, LNP- S, PF, 30 mcg/0.3 mL dose; Translations: [Fashfix-BioNTech COVID-19 Vaccine] Beth Bradley [facility] Comment on above: Reason for Medicatio n: Prophylaxis 09-09-2020 COVID-19, mRNA, LNP- S, PF, 30 mcg/0.3 mL dose; Translations: [Pfizer-BioNTech COVID-19 Vaccine] [facility] Comment on above: Reason for Medicatio n: Prophylaxis 12-05-2019 tetanus toxoid, reduced diphtheria toxoid, and acellular pertussis vaccine, adsorbed; Translations: [Adacel (Tdap)] [facility] 04-27-2019 influenza virus vaccine, split virus (incl. purified surface antigen) Elaine Mejia Other [employer] Other 04-27-2019 influenza virus vaccine, unspecified formulation [facility] 04-27-2019 pneumococcal conjuga te vaccine, 13 valent Elaine Mejia Other [facility] 07-08-2017 diphtheria, tetanus toxoids and acellular pertussis vaccine, unspecified formulation Elaine Mejia Other [facility] 02-05-2017 influenza virus vaccine, unspecified formulation Angus Mann DO Work Phone: [facility] Healthcare Payers Date Payer Category Payer Medicare supplementa l policy (as second payer) [facility] [id number] 2023 Private Health Insurance [place] [id number] 2023 Unknown 2018 Medicare [id number] 1959 Medicare [id number]. [id number] 1959 Private Health Insurance [id number] [id number]. 2.7.3.507735.315 1953 Unknown [id number] 2.16.840.1.955223.3.579. 2.175 1953 Unknown [id number] 2.16.840.1.373822.3.579. 2.593 1953 Unknown [id number] 2.16.840.1.888957.3.579. 2.593 1953 Unknown [id number] 2.16.840.1.747743.3.579. 2.727 1953 Unknown [id number] 2.16.840.1.553934.3.579. 2.727 1953 Unknown [id number] 2.16.840.1.678599.3.579. 2.196 1953 Unknown [id number] 2.16.840.1.824530.3.579. 2.196 1953 Unknown [id number] 2.16.840.1.633903.3.579. 2.196 1953 Unknown [id number] 2.16.840.1.125230.3.579. 2. 1953 Unknown [id number] 2.16.840.1.288154.3.579. 2. 1953 Unknown [id number] 2.16.840.1.443086.3.579. 2.196 1953 Unknown [id number] 2.16.840.1.907633.3.579. 2.727 1953 Unknown [id number] 2.16.840.1.161095.3.579. 2.1258 1953 Unknown [id number] 2.16.840.1.558292.3.579. 2.1258 1953 Unknown [id number] 2.16.840.1.198560.3.579. 2.1258 1953 Unknown [id number] 2.16.840.1.639698.3.579. 2.1258 1953 Unknown [id number] 2.16.840.1.858999.3.579. 2.1258 1953 Unknown [id number] 2.16.840.1.376525.3.579. 2.1258 1953 Unknown [id number] 2.16.840.1.403143.3.579. 2.1258 1953 Unknown [id number] 2.16.840.1.886304.3.579. 2.1258 1953 Unknown [id number] 2.16.840.1.665848.3.579. 2.1258 1953 Unknown [id number] 2.16.840.1.427183.3.579. 2.1258 1953 Unknown [id number] 2.16.840.1.599409.3.579. 2.1259 1953 Unknown [id number] 2.16.840.1.595403.3.579. 2.1259 1953 Unknown [id number] 2.16.840.1.465510.3.579. 2.9 1953 Unknown [id number] 2.16.840.1.880509.3.579. 2.1258 1953 Unknown [id number] 2.16.840.1.576589.3.579. 2.1259 1953 Unknown [id number] 2.16.840.1.155530.3.579. 2.1246 1953 Unknown [id number] 2.16.840.1.063460.3.579. 2.1246 Social History Date Type Detail Facility Start: 08-01-2020 End: 05-25-2024 Tobacco smoking status NHIS Current every day smoker [place] History of tobacco use Cigarette Smoker [place] Start: 08-01-2020 End: 05-25-2024 Tobacco use and exposure Never used [place] Start: 08-01-2020 End: 10-29-2024 Alcohol intake Current drinker of alcohol (finding) [place] Start: 08-01-2020 Alcohol Comment daily 3-4 beer s per day [place] Start: 1955 Sex Assigned At Not on file [place] Tobacco [facility] Comment on above: smokes 1 ppd. Start: 05-25-2024 End: 10-29-2024 Sex Assigned At Male [facility] Start: 1955 Sex Assigned At Male F [facility] Start: 05-25-2024 End: 10-29-2024 History of Social function [facility] Start: 05-25-2024 Alcohol Comment Daily [facility] Tobacco smoking status No Smokin g Status Entered [facility] if ever smoked [facility] Work Phone: Start: 09-01-2024 Sex Male (finding) [facility] Start: 11-28-2024 End: 12-08-2024 Exposure to SARS-CoV-2 (event) Not sure [facility] Work Phone: Medical Equipment Procedure Code Equipment Code Equipment Origin al Text Equipment Identifier Dates KNEE TOTAL ROBOT ARTHROPLASTY Angus Jackson DO 09/09/24 Unknown Knee R FDA Start: 09-09-2024 KNEE TOTAL ROBOT ARTHROPLASTY Angus Jackson DO 09/09/24 Unknown Knee R FDA Start: 09-09-2024 KNEE TOTAL ROBOT ARTHROPLASTY Angus Jackson DO 09/09/24 Unknown Knee R FDA Start: 09-09-2024 KNEE TOTAL ROBOT ARTHROPLASTY Angus Jackson DO 09/09/24 Unknown Knee R FDA Start: 09-09-2024 Functional Status Date Assessment Result Facility 08-24-2024 Functional Status No [facility] 01-06-2022 Functional Status N/A [facility] Clinical Notes 10-04-2021 to 12-08-2024 Jaymie Boston MD - 12/08/2024 8:00 AM Eveline Jackson DO - 10/29/2024 2:30 PM Vasu Munoz, PT - 10/15/2024 9:30 AM Vasu Munoz PT - 10/09/2024 9:00 AM EDT Note Date & Type Note Facility 12-08-2024 History of Present illness Narrative Chief complaint: Back pain HPI: Patient with a 2-year history of back pain and leg symptoms. However, his back is 90% of his problem in his legs is 10%. He says he can walk but when he does walk his legs get a little numb and tingly. However he can walk through it into the legs do not prevent him from functioning. 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 It is getting worse over the past couple years. He has had pain management with [facility] but no other treatments. He had an MRI and his pain doctor told him he needed to come see me. He lives down in [place]. He has no physical therapy chiropractic or acupuncture. Activity makes his pain worse. Rest makes it better. No fevers chills nausea vomiting. No bowel or bladder changes. No history of surgery. Physical exam: Well-nourished, well kept. Good perfusion to the extremities 4. Radial and dorsalis pedis pulses 2+. Capillary refill to all 4 digits brisk. No distal edema x 4. No lymphangitis or lymphadenopathy in the examined extremities. Gait normal. Can walk on heels and toes. Thoracic spine is nontender. Examination of the back shows tenderness in the paraspinous musculature. There is decreased range of motion in all directions due to guarding/muscle spasms and pain at extremes. There is good strength and no instability. Examination of the lower extremities reveals no point tenderness, swelling, or deformity. Range of motion of the hips, knees, and ankles are full without crepitance, instability, or exacerbation of pain. Strength is 5/5 throughout. No redness, abrasions, or lesions on all 4 extremities, head and neck, or trunk. Gross sensation intact in the extremities 4. Deep tendon reflexes 2+ and symmetric bilaterally. Claudio and clonus were negative. Straight leg raise negative. Affect normal. Alert and oriented 3. Coordination normal. X-rays were ordered and reviewed today and it shows severe degenerative changes throughout the lumbar spine with disc height loss and endplate irregularity and osteophyte formation. There is a scoliosis centered around L3-4. MRI was reviewed from 08/27/2024 done at outside facility on a disk that he downloaded. It shows at L1-2 mild central stenosis at L2-3 moderate to severe central stenosis at L3-4 moderate to severe central stenosis and some left foraminal stenosis. L4-5 shows moderate to severe central stenosis and some mild left foraminal stenosis. L5-S1 shows some moderate bilateral foraminal stenosis. Assessment/plan: Patient with above described imaging studies. He is severely inhibited with bodily function due to his back pain. I had a long discussion with the patient and explained to them that their options are 1) live with the symptoms and see how they evolve, 2) physical therapy, 3) pain management or 4) surgery. I explained at length to him and his daughter that an operation on him would really only help benefit his leg symptoms not his back pain. After a long discussion with him he decided that his leg symptoms were not his predominant problem and his back pain was the main issue and he would like to try other modalities other than surgery. We are going to get him into physical therapy and pain management at a different location. He will follow-up with us on a as needed basis if he develops more predominant leg symptoms. documented in this encounter [facility] Work Phone: 10-29-2024 History of Present illness Narrative @[email or web address]@ Rosalio Jarquin is a 69 y.o. male who presents for Post-op of the Right Knee (R TKA 09/09/24 [facility] [place]) HPI: History of Present Illness The patient is 7 weeks status post right total knee arthroplasty, with the surgery having been performed on 09/09/2024. He also received a Zilretta injection in his left knee on 09/24/2024. Rehabilitation is reported to be nearing completion, with only strength training remaining. The Zilretta injection administered to the left knee has been beneficial. SUBJECTIVE: MEDICATIONS: Current Outpatient Medications Medication Instructions aspirin 81 mg CeleBREX 200 mg Colace 100 mg escitalopram (LEXAPRO) 10 mg, Daily gabapentin (Neurontin) 300 MG capsule lamoTRIgine (LaMICtal) 25 MG tablet 1 tablet, Nightly loratadine (Claritin) 10 MG tablet losartan (COZAAR) 50 mg, Daily meloxicam (MOBIC) 15 mg, Daily methocarbamol (ROBAXIN) 750 mg, 3 times daily PRN oxyCODONE-acetaminophen (Percocet) 5-325 MG tablet TAKE 1 TO 2 TABLETS BY MOUTH EVERY 4 HOURS ALLERGIES: No Known Allergies SURGICAL HISTORY: Past Surgical History: Procedure Laterality Date ANKLE SURGERY Left TOTAL KNEE ARTHROPLASTY Right 09/09/2024 [facility] [place] JIM REVIEW OF SYMPTOMS: The review of systems, history and current medications list are all reviewed today. OBJECTIVE: Visit Vitals Ht 5' 11 Wt 192 lb BMI 26.78 kg/m Smoking Status Every Day BSA 2.09 m Physical Exam General: The patient is ambulating independently. Right Knee: The incision on the right knee is benign and well healed. There is very minimal swelling present. There is no erythema. There is a very tiny scab at the most proximal aspect of the incision with no drainage, no dehiscence. Full extension. Flexion is to 120 degrees actively with 125 degrees passively. There is no varus or valgus instability. Strength is 5 out of 5 in flexion and extension. Negative Homans. Neurovascular status in the lower extremity is unchanged. Results Imaging Three views, bilateral PA weight-bearing/sunrise/lateral right knee, taken today and saved to the permanent medical record are reviewed. Prosthesis is unchanged in position and alignment. No signs of prosthetic wear or loosening. No periprosthetic fractures. ASSESSMENT AND PLAN: I reviewed the history, physical exam, diagnostic studies, and diagnosis with the patient. Assessment & Plan 1. Postoperative status following right total knee arthroplasty: Satisfactory progress noted with minimal swelling and a well-healed incision. Continue icing the knee and apply scar lotion, allowing the scab to fall off naturally. Antibiotics should be taken prior to any dental procedures. If the condition deteriorates before 03/2025, inform the clinic. 2. DJD left knee Zilretta injection administered on 09/24/2024 has provided relief. If the pain recurs, another injection can be considered. Follow-up Follow up in 03/2025 with an x-ray. Diagnoses and all orders for this visit: Status post total knee replacement, right - XR knee 3 views right Angus Jackson D.O. Attestation This note was created using voice recognition through [employer]. documented in this encounter [facility] 10-15-2024 History of Present illness Narrative Images from the original note were not included. Physical Therapy Treatment Visit Patient Name: Rosalio Jarquin Today's Date: 10/15/2024 Encounter Diagnoses Name Primary? Localized osteoarthritis of right knee Yes Status post total knee replacement, right Visit number: 4 Timed Code Treatment: 45 minutes Total Treatment Time: 60 minutes Time In: 09:24 AM Time Out: 10:29 AM History: Pt underwent surgery for right TKA on 09/09/24. Has been getting 4 weeks of home health therapy. Pt states he has only been using cane as needed. States has not used walker in a couple weeks. Still icing and elevating at home. Pt states stopped taking percocet last week and now taking something less strong. Pt states he was having some issues with low back and left knee pain. Was given injection in left knee at last follow up with . Pt states just started going up to 2nd floor to bed; was staying on first. Precautions: [place] Subjective: No complaints following last session. Knee not feeling too bad today. Pt states knee feels better each week. Will see Dr again next week. Pain: 08/10 Objective: PT Evaluation (10/06/2024) RIGHT KNEE AROM: 115 degrees flexion, 3 degrees extension PROM: 115 degrees flexion, 2 degrees extension MMT: quad 4 to 4+/5; 1-2 degree extension lag with SLR Special Test: N/A Functional: TUG without use of device: 14.41 seconds and 13.14 seconds Treatment: Manual Therapy: () Delivered manual ther to R LE knee PROM in supine, static stretching, Patellar mobs, STM to improve mobility, decrease pain and inflammation Therapeutic Exercise: (45 minutes supervised ) Guided pt through ther and flex ex per ex grid to improve right quad /LE functional mobility, strength and gait ( bike 5 minutes unsupervised to improve knee mobility) Therapeutic Activity: Exercises to improve dynamic activities, functional tasks, functional mobility to return to prior activity level as needed. Neuromuscular re-education: Balance Training, Muscle Facilitation, Dynamic Stability, Core Stabilization, and Blood Flow Restriction Training (BFRT) as needed. Modalities: (10 minutes) CP to right knee following treatment minutes to reduce edema and muscle soreness Assessment: Pt has completed 4 PT sessions for right TKA performed on 09-09-24. Continues to ambulate without use of device. Progressed WB exercises this date on right LE to increase functional strength and stability. Pt continues to lack 1 degree of right knee extension. Able to achieve 128 degrees of right knee flexion this date with strap stretch in supine. Outcome Measure: Lower Extremity Functional Scale (LEFS): Rehab Diagnosis: right knee pain and weakness, decrease ROM and mobility, difficulty walking Short Term Goal: To be met in 2 weeks Goal 1: Pt to be instructed in home exercise program. Penitentiary Goals: To be met in 10 weeks Goal 1: Pt to report independence and compliance with home program. Goal 2: Pt to achieve 120 degrees right knee flexion to assist with functional tasks such as squatting. Goal 3: Pt to be lacking no greater than 1 degree right knee extension to assist with proper gait. Goal 4: Pt to achieve 4+/5 strength right knee flexion and extension to assist with functional mobility and ADL's. Goal 5: Pt to score no less than 50/80 on LEFS indicating improved QOL. Pt will benefit from skilled PT for 2x/week from 10/06/2024 to 12/15/2024 to address the above impairments. I hereby deem this POC medically necessary. Please sign below. Date: documented in this encounter [facility] 10-09-2024 History of Present illness Narrative Images from the original note were not included. Physical Therapy Treatment Visit Patient Name: Rosalio Jarquin Today's Date: 10/09/2024 Encounter Diagnoses Name Primary? Status post total knee replacement, right Yes Localized osteoarthritis of right knee Visit number: 2 Timed Code Treatment Minutes: 44 minutes Total Treatment Time: 54 minutes Time In: 0900 Time Out: 0957 History: Pt underwent surgery for right TKA on 09/09/24. Has been getting 4 weeks of home health therapy. Pt states he has only been using cane as needed. States has not used walker in a couple weeks. Still icing and elevating at home. Pt states stopped taking percocet last week and now taking something less strong. Pt states he was having some issues with low back and left knee pain. Was given injection in left knee at last follow up with . Pt states just started going up to 2nd floor to bed; was staying on first. Precautions: [place] Subjective: Right knee is stiff this morning. Doing exercises at home that he was given last session. Pain: 08/10 Objective: PT Evaluation (10/06/2024) RIGHT KNEE AROM: 115 degrees flexion, 3 degrees extension PROM: 115 degrees flexion, 2 degrees extension MMT: quad 4 to 4+/5; 1-2 degree extension lag with SLR Special Test: N/A Functional: TUG without use of device: 14.41 seconds and 13.14 seconds Treatment: Education: HEP education with demonstration, Educated on Eval Findings and POC Manual Therapy: Passive ROM, Joint mobilization, Soft Tissue Mobilization, Myofascial Release, Muscle Energy Technique, Neural Mobilization, Myofascial Cupping, Dry Needling, IASTM, and Scar mobilization as needed. Therapeutic Exercise: (44 minutes) Strength, Endurance, Flexibility, ROM, HEP, Neural Mobilization, Power, and Core Stability as needed. Pt performed and instructed in home program this date; written instructions and pictures issued with good pt understanding. Therapeutic Activity: Exercises to improve dynamic activities, functional tasks, functional mobility to return to prior activity level as needed. Neuromuscular re-education: Balance Training, Muscle Facilitation, Dynamic Stability, Core Stabilization, and Blood Flow Restriction Training (BFRT) as needed. Modalities: Heat, Ice, Electrical Stimulation, Ultrasound, Cervical Mechanical Traction, Lumbar Mechanical Traction, Iontophoresis, and Fluidotherapy as needed. CP to right knee following treatment X 10 minutes. Assessment: Pt has completed 2 PT sessions for right TKA. Added step ups this date with good lissette. Progressed standing exercises with mild complaints of right knee soreness and low back pain. Pt able to achieve 120 degrees of right knee flexion with supine strap stretch this date. Will continue to progress as pt tolerates. Outcome Measure: Lower Extremity Functional Scale (LEFS): 24/80 Rehab Diagnosis: right knee pain and weakness, decrease ROM and mobility, difficulty walking Short Term Goal: To be met in 2 weeks Goal 1: Pt to be instructed in home exercise program. Penitentiary Goals: To be met in 10 weeks Goal 1: Pt to report independence and compliance with home program. Goal 2: Pt to achieve 120 degrees right knee flexion to assist with functional tasks such as squatting. Goal 3: Pt to be lacking no greater than 1 degree right knee extension to assist with proper gait. Goal 4: Pt to achieve 4+/5 strength right knee flexion and extension to assist with functional mobility and ADL's. Goal 5: Pt to score no less than 50/80 on LEFS indicating improved QOL. Pt will benefit from skilled PT for 2x/week from 10/06/2024 to 12/15/2024 to address the above impairments. I hereby deem this POC medically necessary. Please sign below. Date: documented in this encounter [facility] 09-24-2024 History of Present illness Narrative Associated Order(s): L Inj/Asp: L knee Post-Procedure Diagnose(s): Acute pain of left knee L Inj/Asp: L knee on 09/24/2024 9:40 AM Indications: pain Details: 22 G needle, lateral approach Medications: 32 mg triamcinolone acetonide 32 MG Consent was given by the patient. Images from the original note were not included. @[email or web address]@ Rosalio Giuliano Jarquin is a 69 y.o. male who presents for Post-op of the Right Knee (R TKA 09/09/24 [facility] [place]) HPI: History of Present Illness The patient is 15 days status post right total knee arthroplasty, surgery on 09/09/2024. He is requesting a cortisone injection into the contralateral left knee today. Zilretta will be administered. He is accompanied by his daughter. He expresses concern about his ability to drive safely post-surgery. His goal is to achieve a limp-free gait. He has previously received regular cortisone injections from [facility]. His physical therapy is progressing well, with a reported knee flexion of 100 degrees achieved through assisted manipulation and 90 degrees independently. He expresses interest in transitioning to outpatient therapy at [facility]. SUBJECTIVE: MEDICATIONS: Current Outpatient Medications Medication Instructions aspirin 81 mg CeleBREX 200 mg Colace 100 mg escitalopram (LEXAPRO) 10 mg, Daily gabapentin (Neurontin) 300 MG capsule TAKE 1 CAPSULE BY MOUTH THREE TIMES DAILY FOR 14 DAYS lamoTRIgine (LaMICtal) 25 MG tablet 1 tablet, Nightly loratadine (Claritin) 10 MG tablet Daily losartan (COZAAR) 50 mg, Daily meloxicam (MOBIC) 15 mg, Daily methocarbamol (ROBAXIN) 750 mg, 3 times daily PRN oxyCODONE-acetaminophen (Percocet) 5-325 MG tablet TAKE 1 TO 2 TABLETS BY MOUTH EVERY 4 HOURS ALLERGIES: No Known Allergies SURGICAL HISTORY: Past Surgical History: Procedure Laterality Date ANKLE SURGERY Left TOTAL KNEE ARTHROPLASTY Right 09/09/2024 [facility] [place] JAB REVIEW OF SYMPTOMS: The review of systems, history and current medications list are all reviewed today. OBJECTIVE: Visit Vitals Ht 5' 11 Wt 192 lb BMI 26.78 kg/m Smoking Status Every Day BSA 2.09 m Physical Exam The patient is ambulating with a cane. The incision on the right knee is benign. There is only very mild swelling, no erythema, no ecchymosis. The right knee has full extension. Flexion is to 98 degrees. Negative Homans. Plantar flexion, dorsiflexion of the ankle is intact. There is no extensor lag at the knee. The foot is well perfused. Results Three views, bilateral PA weight-bearing/sunrise/lateral right knee, taken today and saved to the permanent medical record are reviewed. Prosthesis is unchanged in position and alignment. No signs of prosthetic wear or loosening. No periprosthetic fractures. Arthritic changes at lateral PF joint left knee. ASSESSMENT AND PLAN: I reviewed the history, physical exam, diagnostic studies, and diagnosis with the patient. Assessment & Plan 1. Post-operative status following right total knee arthroplasty. He is currently 15 days post-surgery and is demonstrating satisfactory progress. He has been advised to refrain from scratching the incision site and to allow the surgical glue to detach naturally. He has been cleared for showering, with the recommendation to gently wash the incision area. A referral for physical therapy at [facility] has been initiated. An x-ray examination will be conducted in 4 weeks. 2. Degenerative osteoarthrosis, left knee He reports that his left knee is acting up more since the surgery. A Zilretta injection was administered into the contralateral left knee today. He has been advised to monitor the effectiveness of the injection over the next few days. If the injection proves helpful, additional injections may be considered in the future. After informed consent and using sterile technique, the superolateral aspect of the left knee(s) was prepped with alcohol and Betadine. The skin was anesthetized with ethyl chloride and the knee was then injected with 5 mL Zilretta with a 22-gauge 1 1/2 inch needle. The patient tolerated this well. A Band-Aid was applied. The patient was instructed to ice the knee and to watch for any signs of infection including redness, increased pain in the knee, drainage from the injection site, fever, chills, etc. The patient was instructed to call the office if he/she experiences any adverse reaction from the injection. Follow-up The patient will follow up in 4 weeks. Diagnoses and all orders for this visit: Status post total knee replacement, right - XR knee 3 views right - Ambulatory referral to Physical Therapy; Future Acute pain of left knee - L Inj/Asp: L knee Angus Jackson D.O. Attestation This note was created using voice recognition through [employer]. documented in this encounter [facility] 09-13-2024 Note Progress Note-Physic arnoldo Patient: ROSALIO JARQUIN Age: 69 years Sex: Male : 1955 Associated Diagnoses: None Author: Adrián Sheikh Jr, DO Preoperative Information Anesthesia Preop Info: Time patient last ate or drank 09/09/2024 00:00:00. Anesthesia history: Patient history: None. Family history+: None. Informed consent: Signed by patient. Re-evaluation prior to induction: Initial evaluation reviewed: No significant change. Review of Systems Eye: Negative except as documented in history of present illness. Ear/Nose/Mouth/Throat: Negative except as documented in history of present illness. Respiratory: Negative except as documented in history of present illness. Cardiovascular: Negative except as documented in history of present illness. Musculoskeletal: Negative except as documented in history of present illness. Neurologic: Negative except as documented in history of present illness. Health Status Allergies: Allergic Reactions (Selected) No Known Medication Allergies Problem list: All Problems Smoker / SNOMED CT 974831370 / Confirmed Added secondary to documentation in Social History. LINETTE on CPAP / SNOMED CT 717992385 / Confirmed Hypertension / SNOMED CT 3481887302 / Confirmed Depression / SNOMED CT 27423039 / Confirmed Anxiety / SNOMED CT 98422603 / Confirmed Histories Procedure history: broke leg. Hernia repair (23618664). Social History Social & Psychosocial Habits Alcohol 08/24/2024 Use: Current Type: Beer Frequency: Daily Average drinks per episode in last year: 6 Substance Abuse Comment: denies. - 11/03/2018 18:26 - Andreea Harris RN Tobacco Comment: smokes 1 ppd. - 11/03/2018 18:26 - Andreea Harris RN . Physical Examination Airway: Mallampati classification: II (soft palate, fauces, uvula visible). Respiratory: adequate air exchange. Cardiovascular: Regular rhythm. Plan [place] [employer] (ASA) physical status classification: Class III. Anesthetic Preoperative Plan: Anesthesia General. Regional Spinal, and adductor. [facility] Comment on above: Result Comment: Elec tronically Signed By: Adrián Sheikh Jr, DO\.br\Date and Time Signed: 09/13/24 10:36 EDT 09-13-2024 Note Progress Note-Physic arnoldo Patient: ROSALIO JARQUIN Age: 69 years Sex: Male : 1955 Associated Diagnoses: None Author: Adrián Sheikh Jr, DO Postoperative Information Postoperative disposition: Postoperative disposition: To PACU. Optimetrix number: Optimetrix number [id number]. Anesthetic utilized: General. Regional: adductor . Health Status Allergies: Allergic Reactions (Selected) No Known Medication Allergies Physical Examination Vital Signs 09/09/2024 12:18 EDT Heart Rate Monitored 57 bpm LOW SpO2 95 % 09/09/2024 12:16 EDT Systolic Blood Pressure 156 mmHg HI Diastolic Blood Pressure 77 mmHg Mean Arterial Pressure, Monitered 103 mmHg 09/09/2024 12:16 EDT Respiratory Rate 18 br/min 09/09/2024 12:10 EDT Temperature Temporal Artery 36.8 DegC Heart Rate Monitored 53 bpm LOW Respiratory Rate Monitored 25 br/min Systolic Blood Pressure 147 mmHg HI Diastolic Blood Pressure 78 mmHg Blood Pressure Location Right arm Mean Arterial Pressure, Cuff 101 mmHg SpO2 94 % 09/09/2024 12:00 EDT Heart Rate Monitored 52 bpm LOW Respiratory Rate Monitored 17 br/min Systolic Blood Pressure 117 mmHg Diastolic Blood Pressure 57 mmHg LOW Blood Pressure Location Right arm Mean Arterial Pressure, Cuff 77 mmHg SpO2 98 % 09/09/2024 11:55 EDT Heart Rate Monitored 48 bpm LOW Respiratory Rate Monitored 14 br/min Systolic Blood Pressure 119 mmHg Diastolic Blood Pressure 66 mmHg Blood Pressure Location Right arm Mean Arterial Pressure, Cuff 84 mmHg SpO2 99 % 09/09/2024 11:50 EDT Heart Rate Monitored 46 bpm LOW Respiratory Rate Monitored 24 br/min Systolic Blood Pressure 118 mmHg Diastolic Blood Pressure 57 mmHg LOW Blood Pressure Location Right arm Mean Arterial Pressure, Cuff 77 mmHg SpO2 98 % 09/09/2024 11:43 EDT Temperature Temporal Artery 36.7 DegC Heart Rate Monitored 44 bpm LOW Respiratory Rate Monitored 23 br/min Systolic Blood Pressure 123 mmHg Diastolic Blood Pressure 58 mmHg LOW Blood Pressure Location Right arm Mean Arterial Pressure, Cuff 80 mmHg SpO2 98 % Pain Assessment: Controlled. General: Awake, Alert, Appropriate. Respiratory: Adequate air exchange. Cardiovascular: Stable, Normal peripheral perfusion. Neurological: Normal sensory function, Normal motor function. Assessment Anesthetic outcome No anesthetic complications noted. Adequate pain relief. able to void without difficulty, able to ambulate with assist, tolerating PO intake, no N/V. Review / Management Condition: Stable. Plan Transfer/Discharge: Transfer/Discharge Discharge when meets criteria ( To home ). [facility] Comment on above: Result Comment: Elec tronically Signed By: Adrián Sheikh Jr, DO\.br\Date and Time Signed: 09/13/24 10:35 EDT 09-09-2024 Hospital Discharge instructions Patient Education 09/09/2024 11:34:37 Knee Cryocuff Patient Instructions - FT (CUSTOM) 09/09/2024 11:34:35 Post Op Patient Instructions - FT (Custom) (CUSTOM) 09/09/2024 11:33:45 Monique Jackson - Total Knee Arthroplasty (Custom) [place], [place] [facility] DISCHARGE INSTRUCTIONS: TOTAL KNEE ARTHROPLASTY INCISION CARE: The bandage may be changed by your home Physical Therapist at 7 days postoperatively and worn an additional 7 days. A new Mepilex bandage should then be placed. The bandage is waterproof, so you may shower at home. Steri-strips (paper tape strips) may be applied to the incision if any slight wound separation is noted. These should remain in place for five days and then they may come off in the shower. Please notify the office if any increase in redness, tenderness, drainage, fever, or wound separation is noted beyond this point. MEDICATIONS: You may resume your home medications at the time of discharge. Arixtra and Lovenox are mild blood thinners that prevent the development of blood clots in the legs. One of these has been used during your hospitalization. After discharge home you should continue the use of two stomach coated baby Aspirin tablets daily with your largest meal for 30 days after home discharge. Please notify your doctor if you have a stomach sensitivity to Aspirin or history of previous stomach ulcers. Pain medication has been prescribed as well. You may continue to use the pain medication every four hours as needed. Any narcotic pain medication can cause side effects including stomach upset, constipation, or light-headedness. You should not drive or operate machinery, or drink alcohol while using the narcotic pain medication. You should not use other pain medications with this prescription pain medication unless further directed by your physician. PHYSICAL THERAPY Continue the range of motion and strengthening exercises initiated by Physical Therapy in the hospital. Continue weight bearing, as ordered, to the operated knee as directed in Physical Therapy. This will be with the use of a walker or crutches initially. Physical therapy as begun in the hospital will continue at home, possibly with the permit review assistant of Home Health Physical Therapy or in the hospital as an outpatient. When you have become independent with the physical therapy program, this will then be discontinued as a supervised program and you will be instructed to continue the physical therapy exercises at home. Your exercises are flynn to successful rehabilitation. You should gain full extension first, hopefully before hospital discharge, and gain 90 degrees flexion by one month post-op. Do the exercises daily, twice if preferred. DRIVING: Please do not drive for 4-6 weeks pending therapy progress. 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 It is therefore advised not to drive until after your first office visit following surgery. FOLLOW-UP OFFICE VISIT: Angus Jackson, DO [facility] [address] [place] [address] Reviewed: 11-20 Follow Up Care 08/06/2024 10:55:12 With:Angus Jackson Address: [address] [place] [address] [place] [address]- Business (1) When:09/24/2024 09:00:00 Comments:Appointment has already been scheduled. Call for any problems. [facility] 09-09-2024 Note Patient Education - Text [place], [place] [facility] DISCHARGE INSTRUCTIONS: TOTAL KNEE ARTHROPLASTY INCISION CARE: The bandage may be changed by your home Physical Therapist at 7 days postoperatively and worn an additional 7 days. A new Mepilex bandage should then be placed. The bandage is waterproof, so you may shower at home. Steri-strips (paper tape strips) may be applied to the incision if any slight wound separation is noted. These should remain in place for five days and then they may come off in the shower. Please notify the office if any increase in redness, tenderness, drainage, fever, or wound separation is noted beyond this point. MEDICATIONS: You may resume your home medications at the time of discharge. Arixtra and Lovenox are mild blood thinners that prevent the development of blood clots in the legs. One of these has been used during your hospitalization. After discharge home you should continue the use of two stomach coated baby Aspirin tablets daily with your largest meal for 30 days after home discharge. Please notify your doctor if you have a stomach sensitivity to Aspirin or history of previous stomach ulcers. Pain medication has been prescribed as well. You may continue to use the pain medication every four hours as needed. Any narcotic pain medication can cause side effects including stomach upset, constipation, or light-headedness. You should not drive or operate machinery, or drink alcohol while using the narcotic pain medication. You should not use other pain medications with this prescription pain medication unless further directed by your physician. PHYSICAL THERAPY Continue the range of motion and strengthening exercises initiated by Physical Therapy in the hospital. Continue weight bearing, as ordered, to the operated knee as directed in Physical Therapy. This will be with the use of a walker or crutches initially. Physical therapy as begun in the hospital will continue at home, possibly with the permit review assistant of Home Health Physical Therapy or in the hospital as an outpatient. When you have become independent with the physical therapy program, this will then be discontinued as a supervised program and you will be instructed to continue the physical therapy exercises at home. Your exercises are flynn to successful rehabilitation. You should gain full extension first, hopefully before hospital discharge, and gain 90 degrees flexion by one month post-op. Do the exercises daily, twice if preferred. DRIVING: Please do not drive for 4-6 weeks pending therapy progress. 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 It is therefore advised not to drive until after your first office visit following surgery. FOLLOW-UP OFFICE VISIT: Angus Jackson, DO [facility] [address] [place] [address] Reviewed: 11-20 [facility] 08-06-2024 History of Present illness Narrative Images from the original note were not included. @ENCDATE@ Rosalio Nobles Antoine is a 69 y.o. male who presents for Pain of the Left Knee HPI: History of Present Illness The patient is a 69-year-old male who presents as a new patient to my practice today for his left knee. He was previously under the care of our physician permit review assistant, Barbara Bland. He has tried meloxicam, Robaxin, [...] with a right total knee arthroplasty with Xspand robotic arm assistance. The [employer] platform will be utilized. Surgery will be [...] - Urinalysis with reflex microscopic; Future Angus Jackson D.O. Attestation This note was created using voice recognition through [employer]. documented in this encounter [facility] 05-25-2024 History of Present illness Narrative Associated Order(s): L Inj/Asp: L [...] sterile fashion. GENERAL HISTORY AND PHYSICAL: NAME: Rosalio Jarquin : 1955 HISTORY OF PRESENT ILLNESS: Rosalio Jarquin is an 69 y.o. male is here for orthopedic evaluation here with his for increased pain in his left knee. He was seen in the ER after he had a buckling episode and fell onto his left knee. He has a lot of pain seems to be related to the patellofemoral joint. He has significant lateral subluxation of the right patella with vwfs-bl-ajit changes and advancing arthritis with no subluxation of the left patellofemoral joint with fairly well-preserved mediolateral compartments seen on x-ray from [facility] as well as weight-bearing films here in [...] knee. TE Vera documented in this encounter [facility] 05-25-2024 Instructions TE Vera - 05/25/2024 [...] support the knee. documented in this encounter [facility] 06-06-2023 Evaluation note Encounter Date Diagnosis Assessment Notes May, Removal of michelle (ICD-10 - Z48.02) Pt tolerated staple removal well. Pt denies LOC or fall without reason. He slipped in slippers on an icy patio with dog outside. Steristrips applied.. Keep area clean. [facility] Other 10-20-2023 Evaluation note* Encounter Date Diagnosis [...] to quit smoking. Agrees to LDCT at [facility] [employer] Other 07-09-2022 Evaluation + Plan noteExtracted from: Title:ED Note Author:Ramon Gauthier PA-C te:01/06/22 Otitis externa (H60.90: Unsp ecified otitis externa, unspecified ear) Orders: ciprofloxacin-dexamethasone otic, 4 drop(s), Ear-Right, BID for 7 day(s), 10 mL, Refill(s) 0 [facility]07-09-2022 Hospital Discharge instructions Patient Education [...] antibiotic even if your condition improves. Take wocr-rog-vpnxyks and prescription medicines only as told by [...] 06/17/2006 Document Revised: 11/21/2018 Document Reviewed: 11/21/2018 [employer] Patient Education 2020 [employer] 01/06/2022 08:25:56 Ear Drops, Adult Ear [...] 06/11/2002 Document Revised: 05/30/2018 Document Reviewed: 06/20/2017 [employer] Patient Education [facility]. Follow Up Care 01/06/2022 07:58:43 With:Elizabeth Veliz Address: [address] [place] [address] 3, [address] [place] [address]- Business (1) When:01/09/2022 08:19:10 With:ELAINE MEJIA Address: [address] [place] [address]- Business (1) When:01/09/2022 08:19:07 [facility]04-06-2022 Hospital Discharge instructions Follow Up Care 10/04/2021 10:34:18 With:Kirk MOREAU, Beth Ramirez, PUL, LUZ MARIA Address: [address] [place] [address] [place] [address]- When:1 year [facility] No data available for this section [facility] Future Appointments Appointment Date:09/09/2024 07:30:00 AM Scheduled Provider: Location:[facility] Appointment Type:Surgery FT Diagnostic Tests Pending * Urine Culture 08/24/24 [facility] Evaluation noteNo [employer] Other Evaluation note* Diagnosis Onset Date Resolution Status Lumbar pain with radiation down both legs acute [facility] Work Phone: Evaluation noteNo assessment information available [facility] Work Phone: Evaluation note* Diagnosis Localized osteoarthritis of left knee- Primary Acute pain of left knee Osteoarthritis of patellofemoral joints of both knees [facility] Diagnosis Osteoarthritis of patellofemoral joints of both knees [facility]* Diagnosis Onset Date Resolution Status Admit Date Lung nodule seen on imaging study ac nancy September 01, 2024 9:35am [facility] Work Phone: Evaluation note* Diagnosis Status post total knee replacement, right- Primary Acute pain of left knee [facility]* Diagnosis Localized osteoarthritis of right knee- Primary Status post total knee replacement, right [facility]* Diagnosis Status post total knee replacement, right- Primary Localized osteoarthritis of right knee [facility]* Diagnosis Status post total knee replacement, right- Primary Localized osteoarthritis of right knee [facility]* Diagnosis Localized osteoarthritis of right knee- Primary Status post total knee replacement, right [facility]* Diagnosis Status post total knee replacement, right- Primary Localized osteoarthritis of right knee [facility]* Diagnosis Localized osteoarthritis of right knee- Primary Status post total knee replacement, right [facility]* Diagnosis Localized osteoarthritis of right knee- Primary Status post total knee replacement, right [facility]* Diagnosis Localized osteoarthritis of right knee- Primary Status post total knee replacement, right [facility]* Diagnosis Status post total knee replacement, right- Primary [facility]* Diagnosis Lumbar pain Lumbago Lumbar radiculopathy Thoracic or lumbosacral neuritis or radiculitis, unspecified documented in this encounter [facility] Work Phone: Evaluation note* Diagnosis Lumbar pain Lumbago documented in this encounter [facility] Work Phone: History general Narrative - Reported* Type Description Date Medical History Depression, controlled Medical History Generalized osteoarthrosis Medical History Transient insomnia Medical History Obstructive sleep apnea Surgical History Hernia Repair Surgical History Left ankle surgery - with plate s and screws 2014 Hospitalization History SEE SURGICAL HX [facility] Other Hospital Discharge instructions No data available for this section [facility] No data available for this section [facility]* Consultation (Routine) - Authorized Specialty Diagnoses / Procedures Referred By Alma t Referred To Contact Physical Therapy Diagnoses Status post total knee replacement, right Procedures ID OFFICE/OUTPATIENT NEW HIGH MDM 60 MINUTES Angus Jackson, DO [address] [place] [address] Phone: tel: fax: Cassia Munoz PT Referral ID Status Reason Start Date Expiration Date Visits Requested Visits Authorized [id number] Authorized Consult and Treat 10/06/2024 03/23/2025 10 10 [facility]* Consultation (Routine) - Authorized Specialty Diagnoses / Procedures Referred By Alma t Referred To Contact Physical Therapy Diagnoses Status post total knee replacement, right Procedures ID OFFICE/OUTPATIENT NEW HIGH MDM 60 MINUTES Angus Jackson, DO [address] [place] [address] Phone: tel: fax: Cassia Munoz, PT Referral ID Status Reason Start Date Expiration Date Visits Requested Visits Authorized [id number] Authorized Consult and Treat 10/06/2024 06/30/2025 10 25 [facility] N[facility]ative* Imaging (Routine) - Authorized Specialty Diagnoses / Procedures Referred By Contlauro t Referred To Contact Radiology Diagnoses Lumbar pain Procedures XR lumbar spine 4+ views w flexion extension Jaymie Boston MD [address] [facility], [address] [place] [address] Phone: tel: fax: Referral ID Status Reason Start Date Expiration Date Visits Requested Visits Authorized [id number] Authorized Perform Procedure 12/08/2024 12/08/2025 1 1 [facility] Work Phone: Discharge Instructions * Instructions* George Alcala, DO - 08/01/2020 Thank you for visiting [facility] Emergency Department. You need to call Elaine Mejia MD to make an appointment as directed for follow up. Should you have any questions regarding your care or further treatment, please call [facility] Emergency Department at [phone]. Take any medications as prescribed, if given [...] Everywhere. * Head Injury: Closed: General Info (Bengali) documented in this encounter Assessments Diagnosis Closed [...] pain Reason Comments Pain Reason Comments Pain Reason Comments Post-op R TKA 09/09/24 [facility] Reason Comments Post-op R TKA 09/09/24 [facility] Reason Comments New Patient Visit [facility] Ordered Prescriptions (unrec ognized section and content) [...] section and content) DATE CREATED AUTHOR 08/02/2020 [facility] DATE CREATED AUTHOR AUTHOR'S ORGANIZ ATION 01/17/2022 [facility] DATE CREATED AUTHOR AUTHOR'S ORGANIZ ATION 08/25/2024 [employer] [facility] DATE CREATED AUTHOR AUTHOR'S ORGANIZ ATION 08/26/2024 [employer] [facility] DATE CREATED AUTHOR AUTHOR'S ORGANIZ ATION 09/11/2024 [employer] [facility] DATE CREATED AUTHOR AUTHOR'S ORGANIZ ATION 09/14/2024 [facility] DATE CREATED AUTHOR AUTHOR'S ORGANIZ ATION 09/15/2024 [employer] [facility] DATE CREATED AUTHOR AUTHOR'S ORGANIZ ATION 09/20/2024 [employer] [facility] DATE CREATED AUTHOR AUTHOR'S ORGANIZ ATION 11/03/2024 [facility] DATE CREATED AUTHOR AUTHOR'S ORGANIZ ATION 12/09/2024 [facility] Care Team (unrecognized sect ion and content) Team Status: Active Member Role Status Dates Elaine Mejia MD Primary Care Provider Active Team Status: Inactive Member Role Status Dates Elaine Mejia MD Primary Care Provide r, Attending Provider Active Start: September 19, 2023 End: September 19, 2023 Team Status: Inactive Member Role Status Dates Elaine Mejia MD Primary Care Provide r, Attending Provider Active Start: January 30, 2024 End: January 30, 2024 [employer] Relationship Specialty Start Date End Date Elaine Mejia MD [address] [place] [address] PCP - General Family Medicine 08/06/24 [employer] Relationship Specialty Start Date End Date Elaine Mejia MD [address] [place] [address] PCP - General Family Medicine 08/06/24 Team Status: Inactive Member Role Status Dates Elaine Mejia MD Primary Care Provide r, Attending Provider Active Start: September 01, 2024 End: September 01, 2024 [employer] Relationship Specialty Start Date End Date Elaine Mejia MD [address] [place] [address] PCP - General Family Medicine 08/06/24 [employer] Relationship Specialty Start Date End Date Elaine Mejia MD [address] [place] [address] PCP - General Family Medicine 08/06/24 [employer] Relationship Specialty Start Date End Date Elaine Mejia MD [address] [place] [address] PCP - General Family Medicine 08/06/24 [employer] Relationship Specialty Start Date End Date Elaine Mejia MD [facility] [place] [id number] PCP - General Family Medicine 08/06/24 [employer] Relationship Specialty Start Date End Date Elaine Mejia MD PCP - General Family Medicine 08/06/24 [employer] Relationship Specialty Start Date End Date Elaine Mejia MD PCP - General Family Medicine 08/06/24 [employer] Relationship Specialty Start Date End Date Elaine Mejia MD PCP - General Family Medicine 08/06/24 [employer] Relationship Specialty Start Date End Date Elaine Mejia MD PCP - General Family Medicine 08/06/24 [employer] Relationship Specialty Start Date End Date Elaine Mejia MD PCP - General Family Medicine 08/06/24 [employer] Relationship Specialty Start Date End Date Elaine Mejia MD PCP - General Family Medicine 08/06/24 [employer] Relationship Specialty Start Date End Date Elaine Mejia MD PCP - General Family Medicine 08/06/24 [employer] Relationship Specialty Start Date End Date Elaine Mejia MD PCP - General Family Medicine 08/06/24 [employer] Relationship Specialty Start Date End Date Elaine Mejia MD PCP - General Family Medicine 08/06/24 [employer] Relationship Specialty Start Date End Date Elaine Mejia MD PCP - General Family Medicine 08/06/24 [employer] Relationship Specialty Start Date End Date Elaine Mejia MD PCP - General Family Medicine 08/06/24 [employer] Relationship Specialty Start Date End Date Elaine Mejia MD PCP - General Family Medicine 08/06/24 [employer] Relationship Specialty Start Date End Date Generic Provider, No Assigned [place] [address] PCP - General [employer] 11/25/24 [employer] Relationship Specialty Start Date End Date Generic Provider, [place] [address] PCP - General [employer] 11/25/24 Goals (unrecognized section and content) Goals may [...] BE BASED ON THE PRIMARY CLINICAL RECORDS. [address] [facility]. provides no warranty or guarantee of the accuracy or completeness of information in this document.
== END 2024-12-09 19:54 | disposition home or self-care (01) ==
LOC: SLEEP 19:53
PROVIDERS: PCP Internal Medicine; Visit Provider Internal Medicine
DX: G47.33 Obstructive sleep apnea (adult) (pediatric) (principal)
CPT/HCPCS: 95811

== ENCOUNTER 2025-06-11 07:50 | Outpatient (OUT) | payer MEDICARE, SELFPAY ==
--- OUTSIDE RECORDS SUMMARY | 2025-06-11 07:54 | XMS_ITS | CCD ---
Author Organization [facility] Care Team Providers Care Patient Companion Name Role Phone Elaine Mejia Primary Care Provider TOMI ESTRELLA Attending Unavailable ELAINE MEJIA Primary Care Unavailable ELAINE MEJIA Primary Care Physician Esther Padilla Unavailable [...] Provider UnavailElaine Monge MD Primary Care Provider [phone] DO Angus Darnell Admitting Unavailable DO Angus Darnell Attending Unavailable Mann, DO Greco A Referring Unavailable Angus Darnell Admitting Unavailable Angus Darnell Attending Unavailable Brendan Darnellson Giuliano Referring Unavailable Inés Gregorio Unavailable Unavailable Brown Angus A Referring Unavailable Brown Angus A Attending Unavailable Mann Angus A Admitting Unavailable Gileighton MOREAU, Andrius Vytautshruthi Attending Unavailable Giedraitis , Andrius Vytautas Attending Unavailable Gimagdalenaraitis , Andrius Vytautas Attending Unavailable Gibinhitis , Andrius Vytautshruthi Attending Unavailable Gimagdalenaraitis , Andrius Vytautshruthi Attending Unavailable Gibinhitis , Andrius Vytautas Attending Unavailable Mann Angus Giuliano Admitting Unavailable Angus Darnell Attending Unavailable Angus Darnell Referring Unavailable Elaine Mejia MD Primary Care Provider [phone] Elaine Mejia MD Primary Care Provider [phone] Elaine Mejia MD Primary Care Provider Generic Provider , No Assigned Pcp Primary Car e Provider Unavailable Elaine Mejia MD Primary Care Provider [facility] Daryl KARIMI Attending Provider Elaine Mejia MD Attending Provider JAYMIE BOSTON Attending Unavailable JAYMIE BOSTON Referring Unavailable Elaine Mejia MD Primary Care Provider [phone] Elaine Mejia MD Primary Care Provider [phone] KAYLIE PATTON Attending Unavailable BARBARA BLAND Attending Unavailable CHRISTOPHER, BARBARA Angulo Referring Unavailable BARBARA BLAND Referring Unavailable BROWN, ANGUS A Attending Unavailable BROWN, ANGUS A Referring Unavailable BROWN, ANGUS A Referring Unavailable BROWN, ANGUS A Attending Unavailable BROWN, ANGUS A Referring Unavailable KELBLEY, INÉS Attending Unavailable BROWN, ANGUS A Referring Unavailable KELBLEY, INÉS Attending Unavailable BROWN, ANGUS A Referring Unavailable KARISSA SIMPSON Attending Unavailable BROWN, ANGUS A Referring [...] Attending Unavailable BROWN, ANGUS A Referring Unavailable Allergies Allergy ClassificationReported Allergen(s)Allergy TypeDate of OnsetReaction(s) Facility (3 sources)patient allergy list reviewed by nurse or physiciaPropensity to adverse qxlmagmmz27-45-0778Gycgwbs:[employer] Other (3 sources)Allergies ReconciledPropensity to adverse reactionsUnknoMontalvo Systems Other (3 sources)No Known Medication Allergies; Translations: [No Known Medication Allergies]Propensity to adverse reactions (disorder)[facility] Repository Medications Current Medications MedicationDrug Class(es)DatesSig (Normalized)Sig (Original)acetaminophen 325 mg oral tablet (2 sources)Start: 88-28-4738jsut 2 tablets by mouth every six hours as needed for painacetaminophen (TYLENOL) 325 MG tablet Take 2 tablets by mouth every 6 hours as needed for Pain 120 tablet 0 08/01/2020 ActiveStart: 08-01-2020 acetaminophen (TYLENOL) tablet 1,000 mgacetaminophen 325 mg / HYDROcodone bitartrate 5 mg oral tablet (3 sources)Opioid AgonistStart: 66-47-3384Ojzvr 325 mg-5 mg oral tablet 1 tab(s), Oral, q4hr for pain, 12 tab(s), Refill(s) 0 Start Date: 11/03/18 Status: Orderedacetaminophen 325 mg / oxyCODONE hydrochloride 5 mg oral tablet (20 sources)Opioid AgonistStart: 09-09-2024 End: 28-78-6928Kyjmtzob 5 mg-325 mg oral tablet See Instructions, 40 tab(s), Refill(s) 0, 1-2 tab(s) Oral q4hr, [id number], 183.7, cm, 08/24/24 13:51:00 EST, Height/Length Dosing, 86.8, kg, 08/24/24 13:51:00 EST, Weight Dosing Start Date: 09/09/24 Status: Orderedaspirin 81 mg delayed release oral tablet (20 sources)Platelet Aggregation Inhibitor, Nonsteroidal Anti-inflammatory Drug Start: 09-09-2024 End: 05-14-8152osblsru 81 MG EC tablet Take 81 mg by mouth 09/09/2024 12/08/2024 Activecephalexin 500 mg oral capsule (1 source)Cephalosporin AntibacterialStart: 09-09-2024 End: 88-48-6339cjaj 1 capsule by mouth every eight hoursKeflex 500 mg Cap 500 mg = 1 cap(s), Oral, q8hr, X 7 day(s), # 21 cap(s), Refills(s) 0, Pharmacy: [facility] #[id number], 183.7, cm, 08/24/24 13:51:00 EST, Height/Length Dosing, 86.8, kg, 08/24/24 13:51:00 EST, Weight Dosing Start Date: 09/09/24 Stop Date: 09/16/24 Status: Orderedciprofloxacin 3 mg/ml / dexamethasone 1 mg/ml otic suspension (1 source)Corticosteroid, Quinolone AntimicrobialStart: 01-06-2022 End: 95-53-3581ekyuqbmmpyklv-dexamethasone 0.3%-0.1% Otic Susp 4 drop(s), Ear- Right, BID for 7 day(s), 10 mL, Refill(s) 0 Start Date: 01/06/22 Stop Date: 01/13/22 Status: Orderedescitalopram 10 mg oral tablet (20 sources)Serotonin Reuptake InhibitorStart: 77-47-6387nbnu 1 tablet by mouth once dailyescitalopram 10 mg Tab 10 mg = 1 tab(s), Oral, Daily, Anxiety Start Date: 08/24/24 Status: OrderedStart: 01-21-2024 End: 62-16-4163icbn 1 tablet by mouth once dailyEscitalopram Oxalate 10 mg tablet Active 0 .ROUTE .COMPLEX December 21, 2024 9:27am TAKE 1 TABLET BY MOUTH EVERY DAY Complies with drug therapyStart: 09-17-2023 End: 94-31-6750jprj 1 tablet by mouth once dailyEscitalopram Oxalate 10 mg tablet Discontinued 10 MG PO Daily January 14, 2024 3:08pm January 21, 2024 10:43am FreeTextSig: TAKE 1 TABLET BY MOUTH DAILY; Note: Source Status: Taking; Refills: 0; Qty: 90 Tablet; Provider: Jackie Wright ( )ibuprofen 800 mg oral tablet (6 sources)Nonsteroidal Anti-inflammatory DrugStart: 18-59-2287ubvp 1 tablet by mouth twice daily at mealtime as needed for painibuprofen 800 MG tablet TAKE 1 TABLET BY MOUTH TWICE DAILY WITH FOOD NEEDED FOR PAIN 01/09/2025 ActiveStart: 79-71-5990xmwr 1 tablet by mouth every six hours as needed for painibuprofen (IBU) 600 MG tablet Take 1 tablet by mouth every 6 hours as needed for Pain 120 tablet 0 08/01/2020 Activeketorolac tromethamine 10 mg oral tablet (1 source)Nonsteroidal Anti-inflammatory Drug, Cyclooxygenase InhibitorStart: 09-09-2024 End: 60-25-0992jycy 1 tablet by mouth every eight hoursketorolac 10 mg Tab 10 mg = 1 tab(s), Oral, q8hr, X 3 day(s), # 9 tab(s), Refills(s) 0, Pharmacy: [facility] #[id number], 183.7, cm, 08/24/24 13:51:00 EST, Height/Length Dosing, 86.8, kg, 08/24/24 13:51:00 EST, Weight Dosing Start Date: 09/09/24 Stop Date: 09/12/24 Status: OrderedlamoTRIgine 25 mg oral tablet (20 sources)Mood Stabilizer, Anti-epileptic AgentStart: 26-71-2295dstw 1 tablet by mouth at bedtimelamotrigine 25 mg Tab 25 mg = 1 tab(s), Oral, Bedtime, Depression Start Date: 08/24/24 Status: OrderedStart: 11-01-2023 End: 46-40-5321ipez 1 tablet by mouth at bedtimeLamotrigine 25 mg tablet Active 0 .ROUTE .COMPLEX October 23, 2024 3:28pm TAKE 1 TABLET BY MOUTHAT BEDTIME Complies with drug therapyStart: 11-01-2023 End: 77-86-3769ciiu 1 tablet by mouth at bedtimeLamotrigine Active 0 .ROUTE .COMPLEX January 28, 2024 9:04am TAKE 1 TABLET BY MOUTH AT BEDTIMEStart: 01-25-2022 End: 00-68-0769hnvf 1 tablet by mouth once daily at bedtimeLamotrigine 25 mg tablet Discontinued 1 TAB PO Daily at bedtime September 17, 2023 12:00am November 01, 2023 10:36am FreeTextSig: TAKE 1 TABLET BY MOUTH AT BEDTIME; Note: Source Status: Start; Refills: 0; Qty: 90 Tablet; Provider: Jackie Wright ( )loratadine 10 mg oral tablet (20 sources)Start: 11-63-1490imqortsdzj (Claritin) 10 MG tablet 09/17/2023 ActiveStart: 96-81-4937qnqc 1 tablet by mouth once dailyLoratadine 10MG Loratadine 10MG, 1 (one) Tablet daily # 30, 10/31/2020, Ref. x2. Active Oral daily for 30 *Pick strength-form from [employer] for eRX* October, Active losartan potassium 100 mg oral tablet (20 sources)Angiotensin 2 Receptor BlockerStart: 21-42-1886uhgj 1 tablet by mouth once dailylosartan (Cozaar) 100 MG tablet Take 100 mg by mouth Daily 12/25/2024 ActiveStart: 80-33-3226eogt 1 tablet by mouth once dailyLosartan 100 mg tablet Active 0 .ROUTE .COMPLEX 90 December 25, 2024 10:00am TAKE 1 TABLET BY MOUTH EVERY DAY Complies with drug therapyStart: 10-21-2023 End: 26-16-8669bsyi 1 tablet by mouth once dailyLosartan 50 mg tablet Discontinued 0 .ROUTE .COMPLEX 90 March 26, 2024 12:18pm December 25, 2024 10:00am TAKE 1 TABLET BY MOUTH EVERY DAYStart: 09-17-2023 End: 30-16-9888alun 1 tablet by mouth once dailylosartan 50 mg Tab 50 mg = 1 tab(s), Oral, Daily, High blood pressure Start Date: 08/24/24 Status: Ordered methocarbamol 500 mg oral tablet (20 sources)Muscle RelaxantStart: 11-18-8309tgdg 1 tablet by mouth once daily in the evening as neededmethocarbamol (Robaxin) 500 MG tablet TAKE 1 TABLET BY MOUTH EVERY EVENING NEEDED 02/25/2025 ActiveStart: 05-28-2023 End: 63-93-1461qebs 1 tablet by mouth three times daily as neededmethocarbamol (Robaxin) 750 MG tablet Take 750 mg by mouth 3 (three) times a day as needed 05/28/2023 03/11/2025 KwaeiqwefsvtZbrdzbrqnjh-Vwkszash-Szqitrysc 1-0.5-0.075 % solution (1 source)Start: 20-84-9623Nlcavkqvkhd-Moxiflox-Bromfenac 1-0.5-0.075 % solution Indications: Age-related nuclear cataract of both eyes Administer 1 drop into affected eye(s) in the morning and 1 drop at noon and 1 drop in theevening and 1 drop before bedtime. 10 mL 1 04/22/2025 Activezolpidem tartrate 6.25 mg extended release oral tablet (5 sources)gamma-Aminobutyric Acid-ergic AgonistStart: 22-15-3024yzrz 1 tablet by mouth oncezolpidem CR (Ambien CR) 6.25 MG ER tablet TAKE 1 TABLET BY MOUTH 30 TO 60 MINUTES BEFORE LIGHTS OUTDURING THE SLEEP STUDY ONCE. DO NOT TAKE BEFORE ARRIVING TO THE SLEEP CENTER. 11/11/2024 Active Completed/Discontinued Medications MedicationDrug Class(es)DatesSig (Normalized)Sig (Original)betamethasone 3 mg/ml / betamethasone acetate 3 mg/ml injectable suspension (4 sources)CorticosteroidStart: 05-25-2024 End: 76-88-8689uzdqzhurvaodg acetate-betamethasone sodium phosphate (Celestone) injection 12 mgStart: 05-25-2024 End: 18-02-219994 mg, Intra-articular, Once PRN Procedure, Starting on 05/25/24 at 1613, For 1 dosecelecoxib 200 mg oral capsule (20 sources)Nonsteroidal Anti-inflammatory DrugStart: 09-09-2024 End: 90-87-5872OhqmKAQH 200 MG capsule Take 200 mg by mouth 09/09/2024 03/11/2025 Discontinueddocusate sodium 100 mg oral capsule (20 sources)Start: 09-09-2024 End: 46-60-7299Jcmzdu 100 MG capsule Take 100 mg by mouth 09/09/2024 03/11/2025 Discontinuedgabapentin 300 mg oral capsule (20 sources)Anti-epileptic AgentStart: 09-09-2024 End: 06-10-7383stgdghjcxy (Neurontin) 300 MG capsule 09/09/2024 03/11/2025 Discontinuedmeloxicam 15 mg oral tablet (20 sources)Nonsteroidal Anti-inflammatory DrugStart: 12-03-2023 End: 30-34-9861cfwu 1 tablet by mouth once dailyMeloxicam 15 mg tablet Discontinued 0 .ROUTE .COMPLEX 90 May 04, 2024 1:33pm September 01, 2024 1 0:54am TAKE 1 TABLET BY MOUTH EVERY DAYStart: 12-13-2021 End: 99-55-5030htxu 1 tablet by mouth once dailyMeloxicam 15 mg tablet Discontinued 15 MG PO Daily September 17, 2023 12:00am December 03, 2023 3:38pm Fr eeTextSig: Meloxicam 15MG, 1 (one) Tablet daily # 90, 12/13/2021, Ref. x2. Active Oral daily; Note:Source Status: Taking; Refills: 90; Provider: Jackie Wright EpredniSONE 20 mg oral tablet (4 sources)Start: 09-19-2023 End: 10-92-8490tdoc 1 tablet by mouth twice dailyPrednisone 20 mg tablet Discontinued 20 MG PO Twice daily September 19, 2023 12:00am January 30, 2024 11:17amtriamcinolone acetonide 32 mg injection (4 sources)CorticosteroidStart: 09-24-2024 End: 81-70-3872gfcjpwzbiaixb acetonide (Zilretta) injection 32 mgStart: 09-24-2024 End: 45-03-798341 mg, Once PRN Procedure, Starting on Arianna 09/24/24 at 0940, For 1 dose Problems Active Problems Problem ClassificationProblemDateDocumented DateEpisodic/ChronicAnxiety disorders (2 sources)Repxpzt66-64-5256QhzeljbQwemhycz (2 sources)Bilateral age-related nuclear cataracts; Translations: [Age-related nuclear cataract, bilateral]73-48-9738TyxlyhcNcgqwhgwh hypertension (8 sources)Essential hypertension; Translations: [Essential (primary) hypertension]ChronicMalaise and fatigue (2 sources)Other fatigue; Translations: [Fatigue]EpisodicMiscellaneous mental health disorders (3 sources)Transient insomnia; Translations: [Adjustment insomnia]EpisodicMood disorders (4 sources)Depressive disorder; Translations: [Controlled depression]08-24-2024 ChronicOsteoarthritis (20 sources)Degenerative joint disease involving multiple joints; Translations: [Polyosteoarthritis, unspecified]08-84-0381WoajghuEbddp aftercare (1 source)Encounter for removal of suturesEpisodicOther connective tissue disease (16 sources)History of total knee arthroplasty; Translations: [Presence of right artificial knee joint]49-84-4434ZconzrjPeztp ear and sense organ disorders (1 source)Otitis externa; Translations: [Unspecified otitis externa, unspecified ear]Onset: 06-77-5634OppwsrhQiasp eye disorders (1 source)Ptosis of eyebrow; Translations: [Brow ptosis, unspecified]04-22-2025 EpisodicOther eye disorders (1 source)Excess skin of eyelid; Translations: [Dermatochalasis of right upper eyelid]27-72-3792AcpqhpohLhxag injuries and conditions due to external causes (1 source)Closed injury of head; Translations: [Closed head injury, initial encounter]EpisodicOther injuries and conditions due to external causes (4 sources)Foreign body in right ear, initial encounter; Translations: [FOREIGN BODY RT EAR INITIAL ENCNTR]Onset: 25-61-9247JeujeanySntms lower respiratory disease (3 sources)Nodule of lung; Translations: [Solitary pulmonary nodule]09-01-2024 EpisodicOther lower respiratory disease (1 source)Solitary pulmonary nodule; Translations: [Solitary pulmonary nodule] 02-87-1892MxhfroqeBuzhy non-traumatic joint disorders (4 sources)Pain in left knee; Translations: [Pain in joint, lower leg]05-25-2024 EpisodicOther screening for suspected conditions (not mental disorders or infectious disease) (1 source)Encounter for screening for malignant neoplasm of prostateEpisodic Residual codes; unclassified (8 sources)Obstructive sleep apnea syndrome; Translations: [Obstructive sleep apnea (adult) (pediatric)]Onset: 99-10-9555QgnszohHixbwqolxkc; intervertebral disc disorders; other back problems (15 sources)Low back pain; Translations: [Low back pain radiating to both legs] Onset: 829192-68-5763StnjrzahSupdazrke-qyoryjt disorders (13 sources)Smoker; Translations: [Nicotine dependence, cigarettes, uncomplicated]Onset: 327227-42-9857MgpvlzhJfdhkcq on above:Added secondary to documentation in Social History.Unclassified (1 source)Low back pain, unspecified; Translations: [Low back pain, unspecified] Onset: 12-08-2024 Past or Other Problems Problem ClassificationProblemDateDocumented DateEpisodic/ChronicMood disorders (3 sources)Mood disorders; Translations: [Depression, controlled]Unclassified (2 sources)Acute pain of left zyda31-66-9443Nbmfmuurnxfo (1 source)Low back pain, unspecified; Translations: [Low back pain, unspecified] Onset: 12-08-2024 Results Test NameValueInterpretationReference RangeFacilityUS Eye+Orbit - bilateralon 04-22-2025 LENGTH (OD)23.36[facility]A LENGTH (OS)23.56[facility] HospitalRight Eye Axial length was 23.36. Left Eye Axial length was 23.56.[facility] CharlotteRadiology Study observation (narrative)[facility] K[facility] - right 3 Viewson 84-39-9571Jadlfnh Result: Three views, bilateral PA weight-bearing/sunrise/lateral right knee, taken today and saved to the permanent medical record are reviewed. Prosthesis is unchanged in position and alignment. No signs of prosthetic wear or loosening. No periprosthetic fractures. Complete loss lateral PF joint left knee.[facility] CharlotteXR Knee - right 3 Viewson 67-24-9583Qdhwanzyw Study observation (narrative)[facility] XR LUMBAR SPINE 4+ VIEWS WITH FLEXION EXTENSIONon 94-60-5287SU LUMBAR SPINE 4+ VIEWS WITH FLEXION EXTENSIONInterpreted By: Jaymie Boston, STUDY: XR LUMBAR SPINE 4+ VIEWS WITH FLEXION EXTENSION; 12/08/2024 8:03 am INDICATION: Signs/Symptoms:low back pain. ACCESSION NUMBER(S): [id number] ORDERING CLINICIAN: JAYMIE BOSTON FINDINGS: AP lateral [...] Jaymie Boston 12/08/2024 8:30 AM Dictation workstation: [id number] Memorial HospitalXR Lumbar spine Views W flexion and W extensionon 69-57-3611Hlbjwwogkjr By: Jaymie Boston, STUDY: XR LUMBAR SPINE 4+ VIEWS WITH FLEXION EXTENSION; 12/08/2024 8:03 am INDICATION: Signs/Symptoms:low back pain. ACCESSION NUMBER(S): [id number] ORDERING CLINICIAN: JAYMIE BOSTON FINDINGS: AP lateral [...] Jaymie Boston 12/08/2024 8:30 AM Dictation workstation: [id number] Jaymie Wilkins MD - 12/08/2024 Interpreted By: Jaymie Boston, STUDY: XR LUMBAR SPINE 4+ VIEWS WITH FLEXION EXTENSION; 12/08/2024 8:03 am INDICATION: Signs/Symptoms:low back pain. ACCESSION NUMBER(S): [id number] ORDERING CLINICIAN: JAYMIE BOSTON FINDINGS: AP lateral [...] Jaymie Boston 12/08/2024 8:30 AM Dictation workstation: [id number] [facility] Work Phone: [facility] Work Phone: Radiology Study observation (narrative)[facility] Work Phone: aspergillus niger IgE Ab [Units/volume] in Serumon 11-05-2024. niger IgE Qn (S)NegativeNeg:<1:1FOhioHealth Shelby Hospital Blood Mycobacterium tuberculosis tuberculin stimulated gamma interferon detectionon 11-05-2024M. tuberculosis tuberculin stim IFN-g Ql (Bld)Comment. [facility] CampusComment on above:QuantiFERON-TB Gold Plus is a qualitative indirect test forM tuberculosis infection (including disease) and isintended for use in conjunction with risk assessment,radiography, and other medical and diagnostic evaluations.The QuantiFERON-TB Gold Plus result is determined bysubtracting the Nil value from either TB antigen (Ag)value. The Mitogen tube serves as a control for the test.M. tuberculosis tuberculin stim IFN-g Ql (Bld)0.10 [IU]/mL.[facility] CampusM. tuberculosis tuberculin stim IFN-g Ql (Bld)0.09 [IU]/mL.[facility] Blood mitogen stimulated gamma interferon measurement (units/volume)on 98-10-9276Moirrys stimulated gamma interferon Qn (Bld)>10.00 [IU]/mL.[facility] CampusGlomerular basement membrane Ab [Units/volume] in Serum by Immunoassayon 25-26-8594Zcyppqttkn basement membrane Ab IA Qn (S)<0.2 units 0.0-0.9[facility] CampusComment on above:Performed at: [facility] [address] [id number] Director: Brendan Covington MD, Phone: [phone] capsulatum antibody detection by complement fixationon 11-05-2024H. capsulatum Ab CF Ql (S)NegativeNeg:<1:2 [facility] CampusComment on above:Performed at: [facility] [address] [id number] Director: Brendan Covington MD, Phone: [phone] - Hematology and Cell countson 34-90-0857COC (Bld) [Velocity]15 mm/h<=20[facility] CampusMycobacterium tuberculosis stimulated gamma interferon [Interpretation] in Blood Qualon 11-05-2024M. tuberculosis stim IFN-g Ql (Bld) [Interp]NegativeNegativeSumma Health Akron CampusComment on above:No response to M tuberculosis antigens detected.Infection with M tuberculosis is unlikely, but highriskindividuals should be considered for additional testing(ATS/IDSA/CDC Clinical Practice Guidelines, 2017). Thereference range is an Antigen minus Nil result of <0.35IU/mL.Chemiluminescence immunoassay methodologyPerformed at: [facility] [id number] Director: Ramos Vieira PhD, Phone: [phone] Ab [Units/volume] in Serum by Immunoassayon 42-36-2088Wzxwvuuxbaascqx Ab IA Qn (S)<0.2 units0.0-0.9[facility] CampusNo Panel Informationon 87-89-6059Hhjlkbkdtvd fumigatus Antibody NegativeNeg:<1:1FOhioHealth Shelby HospitalAtypical p-ANCA<1:20 titer Neg:<1:20[facility] CampusComment on above:The atypical pANCA pattern has been observed in asignificant percentage of patients with ulcerative colitis,primary sclerosing cholangitis and autoimmune hepatitis.Performed at: [employer] [id number] Director: Brendan Covington MD, Phone: [phone] at: [facility] [employer] [id number] Director: Ramos Vieira PhD, Phone: [phone] dermatitidis AntibodyNegativeNeg:<1:1FOhioHealth Shelby HospitalComment on above:Performed at: [employer] [id number] Director: Brendan Covington MD, Phone: [phone] ANCA (p-ANCA) Antibody<1:20 titerNeg:<1:20[facility] CampusComment on above:The presence of positive fluorescence exhibiting P-ANCA orC-ANCA patterns alone is not specific forthe diagnosis ofWegener's Granulomatosis (WG) or microscopic polyangiitis.Decisions about treatmentshould not be based solely onANCA IFA results. The International ANCA Group Consensusrecommends follow up testing of positive sera with both OR-3 and MPO-ANCA enzyme immunoassays. As many as 5% serumsamples are positive only by EIA. Ref. AM J Clin Tclncd1837;111:507-513.TB Test (QFT) IncubationSee comment. [facility] CampusComment on above:Incubation performed. Reference Range: .Histoplasma Galactomannan AntigenNegative<0.2 ng/mLSumma Health Akron CampusComment on above:Performed at: [employer] [id number] Director: Brendan Covington MD, Phone: [phone] 3 Ab [Units/volume] in Serum by Immunoassayon 57-35-3175Wmyzpsuxsy 3 Ab IA Qn (S)<0.2 units0.0-0.9[facility] Hospitalerum Aspergillus flavus antibody detection by immunodiffusionon 11-05-2024. flavus Ab Immune diff Ql (S)NegativeNeg:<1:1FMercy Health Anderson Hospitalerum angiotensin converting enzyme (MYRNA) measurementon 11-05-2024 Angiotensin converting enzyme [Catalytic activity/Vol]120 U/GSiqfijib60-60 [facility] CampusComment on above:Performed at: [employer] [address] [id number] Director: Ramos Vieira PhD, Phone: [phone] classic neutrophil cytoplasmic antibody titer by immunofluorescenceon 44-66-6575Jmqjpgcdbn cytoplasmic Ab.classic IF (S) [Titer] <1:20 titerNeg:<1:20[facility] Hospitalerum or plasma free cefuroxime measurement (mass/volume)on 94-46-6728Ccbpszxmcb free [Mass/Vol] NegativeNegativeSumma Health Akron CampusComment on above:Performed at: [employer] [address] [id number] Director: Ramos Vieira PhD, Phone: [phone] blood measurement of Mycobacterium tuberculosis stimulated gamma interferon relon 11-05-2024M. tuberculosis stim IFN-g by CD4+ CD8+ T-cells corrected for background Qn (Bld)0.10 [IU]/mL. [facility] CampusXR Knee - right 3 Viewson 16-77-0976Xgnorhr Result: Three views, bilateral PA weight-bearing/sunrise/lateral right knee, taken today and saved to the permanent medical record are reviewed. Prosthesis is unchanged in position and alignment. No signs of prosthetic wear or loosening. No periprosthetic fractures.[facility] CharlotteRadiology Study observation (narrative)[facility] - right 3 Viewson 09-26-2024 Imaging Result: Three views, bilateral PA weight-bearing/sunrise/lateral right knee, taken today and saved to the permanent medical record are reviewed. Prosthesis is unchanged in position and alignment. No signs of prosthetic wear or loosening. No periprosthetic fractures. Arthritic changes at lateral PF joint left knee.[facility] CharlotteNo Panel Informationon 09-24-2024 Inés Gregorio, ARRT 09/26/2024 6:50 AM L Inj/Asp: L knee on 09/24/2024 9:40 AM Indications: pain Details: 22 G needle, lateral approach Medications: 32 mg triamcinolone acetonide 32 MG Consent was given by the patient. [facility] Knee - right 3 Viewson 19-43-0935Jujynxlrz Study observation (narrative)[facility] WashingtonSurgical Pathology Reporton [id number] [place] [address]- Surgical Pathology Report Collected Date/Time: 09/09/2024 10:28 EDT Pathologist: Oswaldo MOREAU PhD, Jimmie Winters Received Date/Time: 09/09/2024 11:56 EDT Angus Darnell DO, DO, Angus Dangelo Surgical Pathology Report - 09/18/2024 15:50 EDT [...] is eburnated. Cross-section reveals no discrete mass. Records Coordinator sections are submitted in two cassettes. A2 is decalcified. (YC) [facility] Microscopic Description Microscopic examination performed unless gross only specified. This report was transcribed using voice recognition technology and might contain unintended computerized boarder steam errors.[facility] HospitalComment on above:Performed By: #### [id number] #### [facility] [address], [place] [address]Swgigifxq Reporton [id number] ReportOperative Report Patient: ROSALIO JARQUIN Age: 69 years [...] Using maximal sterile barrier technique per current [facility] guidelines including hand hygeine, Guidance (Ultrasound used to identify anatomical landmarks, Using sterile gel and probe covers, Permanent image retained), The site was prepped with ChloraPrep. Procedure: Anesthetic Agent 20cc of 0.5% Ropivicaine with 4mg decadron, Needle was inserted withoutpain or parasthesia in the conscious patient, Number [...] Complications: The patient tolerated the procedure as expected.[facility] HospitalComment on above:Result Comment: Electronically Signed By: Adrián Sheikh Jr, DO\Date and Time Signed: 09/13/24 10:35 EDTMain OR Intraoperative Recordon [id number] OR Intraoperative RecordMain OR Intraoperative Record IntraOp Document Type FT Summary Primary Physician: Angus Darnell DO Finalized Date/Time: 09/10/24 12:51:22 Pt. Name: ROSALIO JARQUIN Giuliano /Sex: 1955 Male Med Rec #: [id number] Physician: Angus Darnell DO Financial #: [id number] Pt. Type: A Room/Bed: [place] [address] Admit/Disch: 09/09/24 05:36:01 - 09/09/24 15:45:00 Institution: Case Times FT Entry 1 Patient Times In Room 09/09/24 09:29:00 Out Room 09/09/24 11:41:00 Procedure Times Start 09/09/24 10:14:00 Stop 09/09/24 11:36:00 Anesthesia Times Start 09/09/24 09:29:00 Stop 09/09/24 11:41:00 Block Timeout w09/09/24 08:10:00 Anesthesia Last Modified By: Kacey Kiser RN 09/09/24 11:41:03 General Comments: ULTRASOUND GUIDED NERVE BLOCK PERFORMED BY DR. SHEIKH WITH ANDRÉS,WEIGHT REDUCING TECHNICIAN ASSISTING, HEART RATE: 64BPM, SPO2: 96% RA, PATIENT TOLERATED WELL. XIOMARA DYE 09/10/24 Chart opened to review and send charges LRoth CSFA Case Attendance FT Entry 1 Entry 2 Entry 3 Case Attendee Jaymie Alarcon DO, Jason A Wilhelm CST, Macie C Role Performed Anesthesiologist Surgeon - Primary WEIGHT REDUCING TECHNICIAN/SA Banjo Repair Person Time In 09/09/24 09:29:00 09/09/24 10:11:00 09/09/24 [...] SOLANO, Ammy Rodrigues CST, Isrrael Role Performed Machine Sizer - Primary Scrub - Primary Staff - Other Time In 09/09/24 09:29:00 09/09/24 09:29:00 09/09/24 09:29:00 Time Out 09/09/24 11:41:00 09/09/24 11:41:00 09/09/24 11:20:00 Procedure KNEE TOTAL ROBOT KNEE TOTAL ROBOT KNEE TOTAL ROBOT ARTHROPLASTY(Right) ARTHROPLASTY(Right) ARTHROPLASTY(Right) Comments 2ND SCRUB Last Modified By: Rashel RN, Kacey Kiser RN, Kacey Madden RN 09/09/24 11:41:04 09/09/24 11:41:04 09/09/24 11:41:04 General Comments: NARGIS WARREN PRESENT FOR THIS CASE. XIOMARA DYEsolidworks drafter Protocols FT Pre-Care Text: Implements protective measures [...] Jaymie Alarcon Given Participants Mann Ortiz DO, Jason A, Wilhelm CST, Rashel Hill RN, Selwyn Wren Laura C, Kylie WEIGHT REDUCING TECHNICIAN, Isrrael Time Out Complete 09/09/24 10:12:00 Outcomes Met? [...] ASSIST Primary Procedure Yes Primary Surgeon Angus Darnell DO Start 09/09/24 10:14:00 Stop 09/09/24 11:36:00 Anesthesia Type General Surgical Service Orthopedics Wound Class 1 - Clean Last Modified By: Gracie Rosales CST 09/10/24 12:43:09 General Case Data FT [...] and tissue Entry 1 Skin Integrity Intact, [place], Warm, & Skin Abnormality No Dry Outcomes M (more content not included)...NormalMetrohealth Cleveland Heights Medical CenterABO/Rh on 17-18-0962DXU/RhPositiveInvalid Interpretation [facility] HospitalComment on above:Performed By: #### [id number] #### [facility] [address], [place] [address]NLS/Rh History Checkon 00-75-9798RKH/Rh History CheckVerified Hx Blood TypeNoRiverside Methodist HospitalComment on above:Performed By: #### [id number] #### [facility] [address], [place] [address]HGNVzk 10-40-8206AEQC Gel InterpNegativeNoRiverside Methodist HospitalComment on above:Performed By: #### [id number] ####[facility] [address] [place], [place] [address]BYBQH BANKOrdered By: Anna Zepeda on 95-78-9520KAX/Rh InterpPositiveInvalid Interpretation Code [facility] BB SubsectionABSC Gel InterpNegative (09/09/24 6:24 AM)NormalOK [facility] BB SubsectionBlood Bank ID#on [id number] Invalid Interpretation CodeJose [facility] Medical CenterComment on above:Performed By: #### [id number] #### Jose [facility] [address] [place] [address]Abaubzhcv Instructionson 15-19-7916Jamzzrfuo Instructions Discharge Instructions ROSALIO JARQUIN Giuliano :1955 Visit Date:09/09/2024 Inpatient Discharge Instructions Your Care Team Admitting Physician - Angus Darnell DO Referring Physician - Angus Darnell DO Reason for Your Visit OA RIGHT [...] Appointments after Discharge Follow Up with Angus Darnell When: 09/24/2024 09:00 AM EDT Comments: Appointment has already been scheduled. Call for any problems. Where: [address] [place] [address]- Business (1) Medications What How Much When Instructions Next Dose New acetaminophen-oxycodone (Percocet 5 mg-325 mg oral tablet) See instructions 1-2 tab(s) Oral q4hr Pickup at [facility] #09077 New aspirin (aspirin 81 mg Oral EC Tab) 1 Tablets By Mouth Every day Duration: 90 Days Pickup at [facility] #07540 New celecoxib (CeleBREX 200 mg Cap) 1 Capsules By Mouth Every day start after finishing ketorolac Pickup at [facility] #99244 New cephalexin (Keflex 500 mg Cap) 1 Capsules By Mouth Every 8 hours Duration: 7 Days Pickup at [facility] #43352 New docusate (Colace 100 mg Cap) 1 Capsules By Mouth 2 times a day as needed for for constipation Pickup at [facility] #45061 New gabapentin (gabapentin 300 mg Cap) 1 Capsules By Mouth 3 times a day Duration: 14 Days Pickup at [facility] #94015 New ketorolac (ketorolac 10 mg Tab) 1 Tablets By Mouth Every 8 hours Duration: 3 Days Pickup at [facility] #[id number] Unchanged escitalopram (escitalopram 10 mg Tab) 1 Tablets By Mouth Every day Unchanged lamotrigine (lamotrigine 25 mg Tab) 1 Tablets By Mouth At bedtime Unchanged losartan (losartan 50 mg Tab) 1 Tablets By Mouth Every day Pharmacy Information [facility] #[id number]: [address] [place], [place] [phone] What How Much When Comments Stop Taking loratadine (loratadine 10 mg Tab) 1 Tablets By Mouth Every day Allergies No Known Medication Allergies Education Materials [place] [place] [facility] DISCHARGE INSTRUCTIONS: TOTAL KNEE [...] continue to use the pain medication every fourhours as needed. Any narcotic pain medication can [...] will continue at home, possibly with the assistant film editor of Home Health Physical Therapy or in the hospital as an outpatient. When you have become independent withthe physical therapy program, this will then be discontinued as a supervised program and you will be instructed to continue the physical therapy exercises at home. Your exercises are flynn to successful rehabilitation. You should gain full extension first, hopefully before hospital discharge, and gain 90 degrees flexion by one month po (more content not included)...[facility]walk [facility] HospitalComment on above:Result Comment: Electronically Signed By: Roxana SOLANO, Ekaterina Negron\.br\Date and Time Signed: 09/09/24 11:35 EDTInpatient Patient Summaryon [id number] Patient SummaryInpatient Patient Summary [address] [address] [facility] Clinical Discharge Instructions PERSON INFORMATION Name: ROSALIO JARQUIN [facility]#:[id number] PHYSICIANS Admitting Physician: Angus Darnell DO Attending Physician: Angus Darnell DO PCP: ELAINE MEJIA MD Discharge Diagnosis: Comment: PATIENT EDUCATION INFORMATION Instructions: Monique Darnell - Total Knee Arthroplasty (Custom) Medication Leaflets: Follow up: With: Address: When: Angus Darnell [address] [place] [address] [facility] (1) 09/24/2024 9:00 AM Comments: Appointment has already been scheduled. Call for any problems. MEDICATION LIST New Medications [facility] #[id number], [address] [place] [phone], [phone] acetaminophen-oxycodone (Percocet 5 mg-325 mg oral tablet) 1-2 [...] times a day as needed for constipation. Refills:0. gabapentin (gabapentin 300 mg Cap) 1 Capsules [...] Tab) 1 Tablets By Mouth every day. Comment:[facility] HospitalMain OR PACU I Recordon [id number] OR PACU I RecordMain OR PACU I Record PACU Phase I Document Type FT Summary Primary Physician: Angus Darnell DO Finalized Date/Time: 09/09/24 12:28:27 Pt. Name: ROSALIO JARQUIN/Sex: 1955 Male Med Rec #: [id number] Physician: Angus Darnell DO Financial #: [id number] Pt. Type: A Room/Bed: [facility]/ Admit/Disch: 09/09/24 05:36:01 - Institution: Case Times [...] individualized perioperative plan of care The patient's rightto privacy is maintained The patient's value system, [...] with or improved from baseline levels established preoperativelyThe patient's cardiovascular status is consistent with or improved from baseline levels established preoperatively The patient's cardiovascular status is consistent with or improved from baseline levels established preoperatively The patient demonstrates and/or reports adequate pain control throughout the perioperative period The patient received appropriate medication(s), safely administered during the perioperativeperiod Acuity Level PACU I FT Entry 1 Start Time 09/09/24 11:43:00 Stop Time 09/09/24 12:13:00 Acuity Level Acuity Level I Last Modified By: Mariah Wayne RN 09/09/24 12:28:23 Finalized By: Mariah Wayne RN Document Signatures Signed By: Mariah Wayne RN 09/09/24 12:28[facility] HospitalMain OR PACU II Recordon [id number] OR PACU II RecordMain OR PACU II Record PACU Phase II Document Type FT Summary Primary Physician: Angus Darnell DO Finalized Date/Time: 09/09/24 15:55:33 Pt. Name: ROSALIO JARQUIN /Sex: 1955 Male Med Rec #: [id number] Physician: Angus Darnell DO Financial #: [id number] Pt. Type: A Room/Bed: [facility] Admit/Disch: 09/09/24 05:36:01 - Institution: Case Times [...] and monitors body temperature Evaluates postoperative respiratory statusEvaluates postoperative cardiac status Evaluates postoperative neurological status [...] individualized perioperative plan of care The patient's rightto privacy is maintained The patient's value system, [...] with or improved from baseline levels established preoperativelyThe patient's cardiovascular status is consistent with or improved from baseline levels established preoperatively The patient's neurological status is consistent with or improved from baseline levels established preoperatively The patient demonstrates and/or reports adequate pain control throughout the perioperative period The patient received appropriate medication(s), safely administered during the perioperativeperiod Finalized By: Nickie Bills Document Signatures Signed By: Nickie Bills 09/09/24 15:55[facility] HospitalMain OR Preoperative Recordon [id number] OR Preoperative RecordMain OR Preoperative Record PreOp Document Type FT Summary Primary Physician: Angus Darnell DO Finalized Date/Time: 09/09/24 10:23:20 Pt. Name: ROSALIO JARQUIN /Sex: 1955 Male Med Rec #: [id number] Physician: Angus Darnell DO Financial #: [id number] Pt. Type: A Room/Bed: [facility]/ Admit/Disch: 09/09/24 05:36:01 - Institution: Case Times [...] Signatures Signed By: Kacey Kiser RN 09/09/24 10:23Norwalk Memorial HospitalOperative Report on [id number] ReportOperative Report Patient: ROSALIO JARQUIN Age: 69 years Sex: Male : 1955 Associated Diagnoses: None Author: Angus Darnell DO DATE OF SURGERY: 09/09/2024 SURGEON: Angus Darnell D.O. NETWORK SYSTEMS ENGINEER: Verona Ghosh CFA PREOPERATIVE DIAGNOSIS: Advanced degenerative osteoarthrosis, right knee POSTOPERATIVE DIAGNOSIS: Advanced degenerative osteoarthrosis, right knee OPERATION: Right total knee arthroplasty utilizing [employer] robotic arm assistance ANESTHESIA: Spinal + regional block SENIOR NET ARCHITECT: ELIEZER Yang and Adrián Sheikh DO IMPLANTS USED: [employer] Triathlon Total Knee System 1. size 5 [...] surgery was preplanned utilizing CT scan and ICONOGRAFICO software. This included the planned implant sizes [...] I requested the nerve block to assist withintraoperative and postoperative pain control. He was transported [...] a padded miranda and secured in the Rima knee positioner. Surgical time-out was performed with [...] secured. The distal femoral pins for the femoralarray were placed into the medial femoral condyle. [...] guidance using the saw attached to the ICONOGRAFICO robotic arm. Femoral cuts were made including anterior, posterior, and chamfer cuts. The tibial cut was then made in the same fashion. The resected bone fragments were removed with osteotomes and freed from tissue with the bovie. Lamina shearing shed hand was placed into the joint. Remaining meniscus and soft tissue were removed from the medial and latera (more content not included)...[facility]walk Memorial HospitalComment on above:Result Comment: Electronically Signed By: Angus Darnell DO\.br\Date and Time Signed: 09/09/24 15:38 EDTOutpatient Surgery Discharge Instructionon [id number] Surgery Discharge Instruction Outpatient Surgery Discharge Instruction [address] [address] Patient Discharge Instructions PERSON INFORMATION Name: ROSALIO JARQUIN Date of : 1955 Current Date: 09/09/2024 11:33:46 PHYSICIANS Admitting Physician: Angus Darnell DO Discharge Diagnosis: ROSALIO JARQUIN has been given the following list of follow-up instructions, prescriptions, and patient education materials: IF UNABLE TO CONTACT YOUR PHYSICIAN AND YOU FEEL IT IS AN EMERGENCY, GO TO THE NEAREST EMERGENCY ROOM OR CALL 911 I, ROSALIO JARQUIN, have received the attached patient education materials/instructions and have verbalized understanding: May we do a follow up call? Yes No I was present when discharge instructions were given Patient Signature Date Clinican/Nurse Signature Date Follow up: With: Address: When: Angus Darnell [address] [place] [id number] [employer] (1) 09/24/2024 9:00 AM Comments: Appointment has already been scheduled. Call for any problems. Pharmacy Information: You may receive a survey from Royce [employer] asking you to rate your care experience. Your feedback is important and will help us understand what we do well and how we can improve the quality of care we provide to you, your loved ones and our community. It???s an honor to serve you. Thank you for choosing [facility] HERE ARE THE MEDICATION CHANGES THAT OCCURRED DURING YOUR HOSPITAL STAY [facility] #[id number], [address], [place] [id number], [phone] acetaminophen-oxycodone (Percocet 5 mg-325 mg oral tablet) 1-2 [...] times a day as needed for constipation. Refills:0. gabapentin (gabapentin 300 mg Cap) 1 Capsules [...] Mouth every day. PATIENT EDUCATION INFORMATION Instructions: [place] [place] [facility] DISCHARGE INSTRUCTIONS: TOTAL KNEE [...] continue to use the pain medication every fourhours as needed. Any narcotic pain medication can [...] crutches initially. Physical thera (more content not included)...[facility]walk Memorial HospitalXR KNEE 1 OR 2 VIEWS RIGHTon 09-09-2024 Exam Date/Time: 09/09/2024 11:57 EDT Reason for Exam: Post-op evaluation;Other (please specify) Report IMPRESSION: NEGATIVE POSTOPERATIVE RIGHT KNEE ARTHROPLASTY.. CLINICAL HISTORY: Post-op evaluation COMPARISON: NONE. FINDINGS: 2 views of the right knee. Placement of bipolar noncemented right knee replacement. No fracture. No abnormal lucency bone prosthetic interface. Ordering Provider: Angus Darnell FINAL REPORT Dictated: 09/09/2024 12:49 pm Panfilo Isabel MD Signed (Electronic Signature): 09/09/2024 12:49 pm Signed by: Panfilo Isabel MD Transcribed by: ARNOLD Technologist: [facility] CITYRadiology, Radiologist, MD - 09/09/2024 Exam Date/Time: 09/09/2024 11:57 EDT Reason for Exam: Post-op evaluation;Other (please specify) Report IMPRESSION: NEGATIVE POSTOPERATIVE RIGHT KNEE ARTHROPLASTY.. CLINICAL HISTORY: Post-op evaluation COMPARISON: NONE. FINDINGS: 2 views of the right knee. Placement of bipolar noncemented right knee replacement. No fracture. No abnormal lucency bone prosthetic interface. Ordering Provider: Angus Darnell FINAL REPORT Dictated: 09/09/2024 12:49 pm Panfilo Isabel MD Signed (Electronic Signature): 09/09/2024 12:49 pm Signed by: Panfilo Isabel MD Transcribed by: ARNOLD Technologist: NICKI BARR HealthcareRadiology Study observation (narrative)NOMS HealthcareXR KNEE 1 OR 2 VIEWS RIGHTOrdered By: Radiologist Radiology on 11-03-6846[facility] Work Phone: XR Knee 1 or 2 Views Righton [id number] Knee 1 or 2 Views RightExam Date/Time: 09/09/2024 11:57 EDT Reason for Exam: Post-op evaluation;Other (please specify) Report IMPRESSION: NEGATIVE POSTOPERATIVE RIGHT KNEE ARTHROPLASTY.. CLINICAL HISTORY: Post-op evaluation COMPARISON: NONE. FINDINGS: 2 views of the right knee. Placement of bipolar noncemented right knee replacement. No fracture. No abnormal lucency bone prosthetic interface. Ordering Provider: Angus Darnell FINAL REPORT Dictated: 09/09/2024 12:49 pm Panfilo Isabel MD Signed (Electronic Signature): 09/09/2024 12:49 pm Signed by: Panfilo Isabel MD Transcribed by: ARNOLD Technologist: [facility] CenterC Urineon [id number] identified Cx Nom (U)Microbiology PROCEDURE: Urine Culture [R1] SOURCE: U CleanCatch BODY SITE: COLLECTED DATE/TIME: 08/24/2024 12:45 EST RECEIVED DATE/TIME: 08/24/2024 14:07 EST START DATE/TIME: 08/24/2024 14:07 EST FREE TEXT SOURCE: Angus Darnell DO, DO, Jason A FINAL REPORTS Final Report [] Verified Date/Time: 08/26/2024 09:20 EST 300 cfu/ml Mixed skin contaminants Performing Locations R1: This test was performed at: [facility], [address] [place] [address], [address] , , ViqwzfPrniqhNorwalk Memorial HospitalComment on above:Performed By: #### [id number] #### [facility] [address] [place] [id number] LOWER EXTREMITY W/O CONTRAST RIGHTon 08-26-2024 Exam Date/Time: 08/24/2024 14:01 EST [...] José Macdonald M.D. Transcribed by: ARNOLD Technologist: [facility] CITYRadiology, Radiologist, MD - 08/26/2024 Exam Date/Time: 08/24/2024 [...] Macdonald M.D. Transcribed by: ARNOLD Technologist: ARIE Pena LOWER EXTREMITY W/O CONTRAST RIGHTOrdered By: Radiologist Radiology on [id number] [facility] Work Phone: ct Lower Extremity w/o Contrast Righton 29-34-2148SK Lower Extremity w/o Contrast RightExam Date/Time: 08/24/2024 14:01 EST Reason for Exam: [...] José Macdonald M.D. Transcribed by: ARNOLD Technologist: Kath[facility] CenterXR Chest 2 Viewson [id number] Chest 2 ViewsExam Date/Time: 08/24/2024 13:07 EST Reason for Exam: [...] Carlos Morgan MD Transcribed by: ARNOLD Technologist: CRONAshtabula County Medical CenterABO/Rh Retypeon 71-60-8727OGO/Rh Retype InterpPositiveInvalid Interpretation [facility] HospitalComment on above:Performed By: #### [id number] #### [facility] [address] [place], [place] [address]THDQV BANKOrdered By: Elsie Jarrell on 31-78-4919CXE/Rh Retype InterpPositiveInvalid Interpretation [facility] BB SubsectionBMPon 79-55-3261Cobrk gap [Moles/Vol]12 mmol/LNormal6-16[facility] Comment on above:Performed By: #### [id number] #### [facility] [address] [place], [place] [address]Nzmzvxd [Mass/Vol]9.1 mg/dLNormal8.9-11.1FPremier Health Miami Valley Hospital NorthComment on above:Performed By: #### [id number] #### [facility] [address] [place], [place] [address]Rtylyzrh [Moles/Vol]100 mmol/PJqs106-311EocxoxMetrohealth Cleveland Heights Medical CenterComment on above:Performed By: #### [id number] #### [facility] [address] [place], [place] [address]DK1 [Moles/Vol]27 mmol/IYbusxd82-49UgkwkkMetrohealth Cleveland Heights Medical Center Comment on above:Performed By: #### [id number] #### [facility] [address], [place] [address]Ahryfbfgok [Mass/Vol]1.2 mg/dLNormal0.5-1.3FPremier Health Miami Valley Hospital NorthComment on above:Performed By: #### [id number] #### [facility] [address], [place] [address]Yhulppx [Mass/Vol]97 mg/wCCbdues90-369OmtuusMetrohealth Cleveland Heights Medical CenterComment on above:Performed By: #### [id number] #### [facility] [address], [place] [address]Njgxwmpxd [Moles/Vol]4.7 mmol/LNormal3.5-5.3FPremier Health Miami Valley Hospital NorthComment on above:Performed By: #### [id number] #### [facility] [address], [place] [address]Whrtik [Moles/Vol]134 mmol/SCmn097-447LtotroMetrohealth Cleveland Heights Medical CenterComment on above:Performed By: #### [id number] #### [facility] [address] [place] [address]Kcmy nitrogen [Mass/Vol]16 mg/dLNormal5-21[facility] Medical CenterComment on above:Performed By: #### [id number] #### [facility] [address] [place] [address]Ceov nitrogen/Creatinine [Mass ratio]13 No JuhgbEqyqdq88-28 [facility] CenterComment on above:Performed By: #### [id number] #### [facility] [address] [place] [address]SLS w/ Auto Diffon 48-34-4571Hwujdaplj/100 WBC (Bld)0.5 %Normal 0.0-2.0[facility] Medical CenterComment on above:Performed By: #### [id number] #### [facility] [address] [place] [address]Rmidijwcm/Leukocytes Auto (Bld) [Pure # fraction]0.0 E9/LNormal 0.0-0.2FPremier Health Miami Valley Hospital NorthComment on above:Performed By: #### [id number] #### [facility] [address] [place] [address]Lafuofxnmbv (Bld) [#/Vol]0.1 E9/LNormal0.0-0.5FPremier Health Miami Valley Hospital NorthComment on above:Performed By: #### [id number] #### [facility] [address] [place] [address]Jnziyhyaozf/100 WBC (Bld)0.9 %Normal0.0-8.0[facility] Medical CenterComment on above:Performed By: #### [id number] #### [facility] [address] [place] [address]Alqohjeicym distribution width (RBC) [Ratio]13.3 %Normal 10.9-14.2FPremier Health Miami Valley Hospital NorthComment on above:Performed By: #### [id number] #### [facility] [address] [place] [address]Qnagyoxgfn (Bld) [Volume fraction]40.5 %Puoojw18.7-49.0[facility] Medical CenterComment on above:Performed By: #### [id number] #### [facility] [address] [place] [address] 57629Hajfzspier (Bld) [Mass/Vol]13.9 g/dDCacemx28.5-17.5FPremier Health Miami Valley Hospital NorthComment on above:Performed By: #### [id number] #### [facility] [address] [place] [address] 14108Yjibimtyvsy (Bld) [#/Vol]0.9 E9/LLow1.0-4.0[facility] CenterComment on above:Performed By: #### [id number] #### [facility] [address] [place] [address] 92828Ckaentkawit/100 WBC (Bld)10.1 %Low14.0-50.0[facility] CenterComment on above:Performed By: #### [id number] #### [facility] [address] [place] [address] 67060XMU (RBC) [Entitic mass]31.4 ysMweaiy20.0-34.0[facility] CenterComment on above:Performed By: #### [id number] #### [facility] [address] [place] [address] 76207DSGK (RBC) [Mass/Vol]34.3 g/kXOajfiz74.4-36.0[facility] CenterComment on above:Performed By: #### [id number] #### [facility] [address] [place] [address] 11574UWP (RBC) [Entitic vol]91.5 qRBlxjou05.0-100.0[facility] CenterComment on above:Performed By: #### [id number] #### [facility] [address] [place] [address] 59323Lrkzqdkji (Bld) [#/Vol]0.9 E9/LNormal0.2-1.0[facility] CenterComment on above:Performed By: #### [id number] #### [facility] [address] [place] [address] 16877Gypuaoectyb (Bld) [#/Vol]7.0 E9/LNormal2.0-7.5FPremier Health Miami Valley Hospital NorthComment on above:Performed By: #### [id number] #### [facility] [address] [place] [address] 32851Pfokinapuze/100 WBC (Bld)78.2 %High36.0-75.0[facility] CenterComment on above:Performed By: #### [id number] #### [facility] [address] [place] [address] 80647Nimpqrog mean volume (Bld) [Entitic vol]9.1 fLNormal6.4-10.8 [facility] CenterComment on above:Performed By: #### [id number] #### [facility] [address] [place] [address] 33481Phxujjwuk (Bld) [#/Vol]334.0 E9/MAuccxv671.0-500.0[facility] CenterComment on above:Performed By: #### [id number] #### [facility] [address], [place] [address]DAX (Bld) [#/Vol]4.4 E12/LNormal4.3-5.9[facility] CenterComment on above:Performed By: #### [id number] #### Jose [facility] [address], [place] [address]CEE corrected for nucl RBC Auto (Bld) [#/Vol]9.0 E9/LNormal 4.0-11.0[facility] CenterComment on above:Performed By: #### [id number] #### Garcia [facility] [address], [place] [address]CXFBYFWPHDbmntkn By: SYSTEM SYSTEM on 80-18-6770Zrstb gap [Moles/Vol]12 mmol/LNormal6 - 16 mEq/LRemisol ChemCalcium [Mass/Vol]9.1 mg/dL Normal8.9 - 11.1 mg/dLRemisol ChemChloride [Moles/Vol]100 mmol/MCft569 - 111 mmol/LRemisol ChemCO2 [Moles/Vol]27 mmol/VZvxruv94 - 31 mmol/LRemisol Chem Creatinine [Mass/Vol]1.2 mg/dLNormal0.5 - 1.3 mg/dLRemisol EhgniAOA25 mL/min/1.73 e0Oboyhk>=59mL/min/1.73 i5Eoivnuk ChemGlucose [Mass/Vol]97 mg/dL Zrmsdq32 - 199 mg/dLRemisol ChemPotassium [Moles/Vol]4.7 mmol/LNormal3.5 - 5.3 mmol/LRemisol ChemSodium [Moles/Vol]134 mmol/WCrs917 - 145 mmol/LRemisol Chem Urea nitrogen [Mass/Vol]16 mg/dLNormal5 - 21 mg/dLRemisol ChemUrea nitrogen/Creatinine [Mass ratio]13 mg/olWkvehr08 - 20Remisol ChemCT LOWER EXTREMITY W/O CONTRAST RIGHTon 24-45-7852Dkbpjqbsy Study observation (narrative) NOMS HealthcareHEMATOLOGYOrdered By: SYSTEM SYSTEM on 29-61-8598Ddgdpxzli/100 WBC (Bld)0.5 %Normal0.0 - 2.0 %Remisol HemeBasophils/Leukocytes Auto (Bld) [Pure # fraction]0.0 E9/LNormal0.0 - 0.2 E9/LRemisol HemeEosinophils (Bld) [#/Vol]0.1 E9/LNormal0.0 - 0.5 E9/LRemisol HemeEosinophils/100 WBC (Bld)0.9 %Normal0.0 - 8.0 %Remisol HemeErythrocyte distribution width (RBC) [Ratio]13.3 %Xdrdzf72.9 - 14.2 %Remisol HemeHematocrit (Bld) [Volume fraction]40.5 %Vmtdkt53.7 - 49.0 % Remisol HemeHemoglobin (Bld) [Mass/Vol]13.9 g/mWLxdblc78.5 - 17.5 gm/dLRemisol HemeLymphocytes (Bld) [#/Vol]0.9 E9/LLow1.0 - 4.0 E9/LRemisol Heme Lymphocytes/100 WBC (Bld)10.1 %Low14.0 - 50.0 %Remisol HemeMCH (RBC) [Entitic mass]31.4 oiHkumgj93.0 - 34.0 pgRemisol HemeMCHC (RBC) [Mass/Vol]34.3 g/dLNormal 31.4 - 36.0 gm/dLRemisol HemeMCV (RBC) [Entitic vol]91.5 eOMfvprw84.0 - 100.0 fL Remisol HemeMonocytes (Bld) [#/Vol]0.9 E9/LNormal0.2 - 1.0 E9/LRemisol Heme Monocytes/100 WBC (Bld)10.3 %Normal4.0 - 14.0 %Remisol HemeNeutrophils (Bld) [#/Vol]7.0 E9/LNormal2.0 - 7.5 E9/LRemisol HemeNeutrophils/100 WBC (Bld)78.2 % High36.0 - 75.0 %Remisol HemePlatelet mean volume (Bld) [Entitic vol]9.1 fL Normal6.4 - 10.8 fLRemisol HemePlatelets (Bld) [#/Vol]334.0 E9/EFibxnw257.0 - 500.0 E9/LRemisol HemeRBC (Bld) [#/Vol]4.4 E12/LNormal4.3 - 5.9 E12/LRemisol HemeWBC corrected for nucl RBC Auto (Bld) [#/Vol]9.0 E9/LNormal4.0 - 11.0 E9/L Remisol HemeUA WITH CULT RFLXon 66-58-0725TWDFIWEL:PRTHR:PT:URINE:ORD:AUTOMATED TraceTrace /HPFNOMD HealthcareBILIRUBIN:PRTHR:PT:URINE:ORD:TEST STRIP.AUTOMATED NegativeNegative mg/dLUTAH STATE HOSPITAL HealthcareEPITHELIAL CELLS.SQUAMOUS:NARIC:PT:URINE SED:QN:AUTOMATED COUNT0-2CD:[id number] Medical Center CLARITY:TYPE:PT:URINE:NOM:ClearClearCass Medical Center CLASS:TYPE:PT:URINE COLLECTION METHOD:NOM:*Clean CatchCass Medical Center COLOR:TYPE:PT:URINE:NOM:AUTOYellowYellowMercy Hospital WashingtonComment on above: Microscopic readings are only performed on those samples that meet specific criteria set forth by [facility] [place] PH:LSCNC:PT:URINE:QN:TEST STRIP6.05.0 - 9.0[facility] SPECIFIC GRAVITY:RDEN:PT:URINE:QN:TEST STRIP1.0141.005 - 1.030[facility] GLUCOSE:PRTHR:PT:URINE:ORD:TEST STRIPNegativeNegative mg/dLMercy Hospital Washington HEMOGLOBIN:MCNC:PT:URINE:SEMIQN:TEST STRIP.AUTOMATEDNegativeNegative mg/dLNODoctors Hospital of SpringfieldHYALINE CASTS:PRTHR:PT:URINE SED:ORD:MICROSCOPY.LIGHT0-3[facility] HealthcareInterpretation and review of laboratory resultsAbSelect Specialty Hospital KETONES:PRTHR:PT:URINE:ORD:TEST STRIP.AUTOMATEDNegativeNegative mg/dLNOMD HealthcareLEUKOCYTE ESTERASE:PRTHR:PT:URINE:ORD:TEST STRIP.FNRLRQQED11 Briseyda/uL Negative CD:[id number] Hospital WashingtonLEUKOCYTES:NARIC:PT:URINE SED:QN:AUTOMATED COUNT6-15AbSelect Specialty HospitalMUCUS:PRTHR:PT:URINE:ORD:AUTOMATEDNegative Negative CD:[id number] Hospital WashingtonNITRITE:PRTHR:PT:URINE:ORD:TEST STRIP.AUTOMATEDNegativeNegative mg/dLUTAH STATE HOSPITAL Healthcare PROTEIN:PRTHR:PT:URINE:ORD:TEST STRIPTraceAbnormalNegative mg/dLUTAH STATE HOSPITAL Healthcare UROBILINOGEN:MCNC:PT:URINE:SEMIQN:TEST STRIP2 mg/dLAbnormalNegative mg/dLMercy Hospital WashingtonOriginal Ordering Provider: DO Angus De La Paz [facility] HospitalUA with Cult Rflxon 52-13-0684Goqodzce Auto Ql (U)TraceNormalTraceMetrohealth Cleveland Heights Medical CenterComment on above:Performed By: #### [id number] #### [facility] [address] [place], [place] [address]Usagqdvil Ql (U)NegativeNormalNegLancaster Municipal HospitalComment on above:Performed By: #### [id number] #### [facility] [address] [place], [place] [address]Vovajqp (U)ClearNormalClearMetrohealth Cleveland Heights Medical CenterComment on above:Performed By: #### [id number] #### [facility] [address] [place], [place] [address]Rhjpl (U)YellowNormalYellowMetrohealth Cleveland Heights Medical CenterComment on above:Result Comment: Microscopic readings are only performed on those samples that meet specific criteria set forth by [facility].Performed By: #### [id number] #### [facility] [address], [place] [address]Jbtazkpktv cells.squamous Auto (Urine sed) [#/Area]0-2Invalid Interpretation CodeMetrohealth Cleveland Heights Medical CenterComment on above:Performed By: #### [id number] #### [facility] [address], [place] [address]Zmvvtwm Ql (U)NegativeNormalNegLancaster Municipal Hospital Comment on above:Performed By: #### [id number] #### [facility] [address] [place] [address] 89053Alupaaqcmq Auto test strip (U) [Mass/Vol]NegativeNormalNegative [facility] CenterComment on above:Performed By: #### [id number] #### [facility] [address] [place] [address] 00684Wnmaxps casts LM Ql (Urine sed)7-1Jszyek3-1Zhdzgk [facility] CenterComment on above:Performed By: #### [id number] #### [facility] [address] [place] [address] 25789Muxemco Auto test strip Ql (U)NegativeNormalNegativeMetrohealth [facility] Heights Medical CenterComment on above:Performed By: #### [id number] #### [facility] [address] [place] [address] 44549Icqavctqu esterase Auto test strip Ql (U)25 Briseyda/uLNormal NegativeMetrohealth Cleveland Heights Medical CenterComment on above:Performed By: #### [id number] #### [facility] [address] [place] [address] 62[address]Kbklz Auto Ql (U)NegativeNormalNegLancaster Municipal HospitalComment on above:Performed By: #### [id number] #### [facility] [address] [place] [address] 84865Kagiray Auto test strip Ql (U)NegativeNormalNegativeMetrohealth Cleveland Heights Medical CenterComment on above:Performed By: #### [id number] #### [facility] [address] [place] [address] 53002dX (U)6.0 [pH]Invalid Interpretation Code5.0-9.0[facility] CenterComment on above:Performed By: #### [id number] #### [facility] [address] [place] [address] 43647Layckzj Ql (U)TraceAbnormalNegativeMet[facility]health [facility] Comment on above:Performed By: #### [id number] #### [facility] [address] [place] [address] 16925Iqivykir gravity (U) [Rel density]1.014Invalid Interpretation Code1.005-1.030[facility] Medical CenterComment on above:Performed By: #### [id number] #### [facility] [address], [place] [address]Bxqzbnjxrnih (U) [Mass/Vol]2 mg/dLAbnormalNegativeMetrohealth Cleveland Heights Medical CenterComment on above:Performed By: #### [id number] #### [facility] [address], [place] [address]JKK Auto (Urine sed) [#/Area]4-97Monjegzz7-3Npgvdu [facility] CenterComment on above:Performed By: #### [id number] #### [facility] [address], [place] [address]Cbqt of Urine collection methodClean CatchNoRiverside Methodist HospitalComment on above:Performed By: #### [id number] #### [facility] [address], [place] [address]KIIZQOMBATLmeliuo By: SYSTEM SYSTEM on 73-67-0420Ikrulejb Auto Ql (U)Trace /HPFNormalTrace/HPFOK [facility] [place] [facility] UA Auto SSBilirubin Ql (U)NegativeNormal Negativemg/dLOK [facility] [place] UA Auto SSClarity (U)Clear (08/24/24 12:45 PM)NormalClearFINTEGRIS [facility] [place] UA Auto SSColor (U)Yellow 1 (08/24/24 12:45 PM)NormalYellowOK [facility] [place] UA Auto SSComment on above:Interpretive Data: Microscopic readings are only performed on those samples that meet specific criteria set forth by [facility].Epithelial cells.squamous Auto (Urine sed) [#/Area]0-2 graded/HPFInvalid Interpretation CodeOK [facility] [place] UA Auto SSGlucose Ql (U)NegativeNormalNegativemg/dLOK [facility] [place] [facility] UA Auto SS Hemoglobin Auto test strip (U) [Mass/Vol]NegativeNormalNegativemg/dLOK [facility] [place] [facility] UA Auto SSHyaline casts LM Ql (Urine sed)0-3 graded/LPFNormal0-3graded/LPFFTMC UA Auto SSKetones Auto test strip Ql (U)NegativeNormalNegativemg/dLOK [facility] [place] UA Auto SS Leukocyte esterase Auto test strip Ql (U)25 Briseyda/uL Briseyda/uLNormalNegativeLeu/uL [place] [facility] [place] [facility] UA Auto SSMucus Auto Ql (U)NegativeNormalNegativegraded/LPFFTMC UA Auto SS Nitrite Auto test strip Ql (U)NegativeNormalNegativemg/dLOK [facility] UA Auto SSpH (U) 6.0 *NA* (08/24/24 12:45 PM)Invalid Interpretation Code5.0 - 9.0OK [facility] [place] [facility] UA Auto SSProtein Ql (U)Trace mg/dLInvalid Interpretation CodeNegativemg/dLOK [facility] [place] [facility] UA Auto SSSpecific gravity (U) [Rel density]1.014 *NA* (08/24/24 12:45 PM)Invalid Interpretation Code1.005 - 1.030OK [facility] [place] [facility] UA Auto SS Urobilinogen (U) [Mass/Vol]2 mg/dLInvalid Interpretation CodeNegativemg/dLOK [facility] [place] [facility] UA Auto SSWBC Auto (Urine sed) [#/Area]6-15 graded/HPFInvalid Interpretation Code0-5graded/HPFOK [facility] [place] UA Auto SSURINALYSISOrdered By: Anastacia Garsia on 08-24-2024 UA Spec DescClean Catch (08/24/24 12:45 PM)NormalOK [facility] [place] [facility] UA Auto SSeGFRon 10-75-1770nMDB41 mL/min/1.73 m2 Normal>=59Fisher [facility] CenterComment on above:Performed By: #### [id number] #### Jose [facility] [address], [place] [address]Nv Panel Informationon 27-39-7113Olnyiidevendra Bojorquez MA 05/25/2024 4:18 PM L Inj/Asp: L knee on 05/25/2024 4:13 PM Indications: pain Details: 25 G needle, anterolateral approach Medications: 12 mg betamethasone acetate-betamethasone sodium phosphate 6 (3-3) MG/ML Procedure, treatment alternatives, risks and benefits explained, specific risks discussed. Consent was given by the patient. Immediately prior to procedure a time out was called to verify the correct patient, procedure, equipment, operator command support systems and site/side marked as required. Patient was prepped and draped in the usual sterile fashion. [facility] CharlotteXR Knee - left 1 or 2 Viewson 61-33-7924Mkevjke Result: Bilateral standing PA and bilateral sunrise of the knees were imaged today in the office. 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 Lateral subluxation of the right patella is notedAtrium Health Carolinas Rehabilitation CharlotteRadiology Study observation (narrative)[facility] WashingtonCT LUNG CANCER SCREENINGon 26-41-0723VS LUNG CANCER SCREENINGEXAMINATION: CT LUNG CANCER SCREENING HISTORY: Tobacco dependence [...] Electronically authenticated by: SIMRAN MATIAS Date: 2022-01-14 09:21Pomerene HospitalCHEMISTRYOrdered By: SYSTEM SYSTEM on 24-53-9883Lhjtx gap [Moles/Vol]11 mmol/LNormal6 - 16 mEq/LFTMC RemisolCalcium [Mass/Vol]8.9 mg/dL Normal8.9 - 11.1 mg/dLFTMC RemisolChloride [Moles/Vol]104 mmol/SQpemhv187 - 111 mmol/LFTMC RemisolCO2 [Moles/Vol]28 mmol/WQvredt96 - 31 mmol/LFTMC Remisol Creatinine [Mass/Vol]1.3 mg/dLNormal0.5 - 1.3 mg/dLFTMC RemisolGFR/1.73 sq M.predicted among blacks MDRD (S/P/Bld) [Vol rate/Area]mL/min/1.73 i7Tffdok >=59mL/min/1.73 m2FT Chem SGFR/1.73 sq M.predicted among non-blacks MDRD (S/P/Bld) [Vol rate/Area]55 mL/min/1.73 m2Low>=59mL/min/1.73 m2OK [facility] [place] [facility] Chem S Glucose [Mass/Vol]102 mg/tOVdgagm46 - 199 mg/dLFTMC RemisolPotassium [Moles/Vol] 4.6 mmol/LNormal3.5 - 5.3 mmol/LFTMC RemisolProstate specific Ag [Mass/Vol]2.0 ng/mLNormal0.1 - 3.5 ng/mLFTMC RemisolSodium [Moles/Vol]138 mmol/TSqidrn275 - 145 mmol/LFTMC RemisolUrea nitrogen [Mass/Vol]22 mg/dLHigh5 - 21 mg/dLFTMC RemisolUrea nitrogen/Creatinine [Mass ratio]17 mg/deNjokgc41 - 20FTMC Remisol HEMATOLOGYOrdered By: SYSTEM SYSTEM on 00-25-3678Wsclerikc/100 WBC (Bld)0.5 % Normal0.0 - 2.0 %FTMC HemeAutoSSBasophils/Leukocytes Auto (Bld) [Pure # fraction]0.0 E9/LNormal0.0 - 0.2 E9/LFTMC HemeAutoSSEosinophils/100 WBC (Bld)3.1 %Normal0.0 - 8.0 %[facility] HemeAutoSSEosinophils/Leukocytes Auto (Bld) [Pure # fraction]0.2 E9/LNormal0.0 - 0.5 E9/LFTMC HemeAutoSSLymphocytes/100 WBC (Bld) 19.8 %Djxibg49.0 - 50.0 %FT[facility] HemeAutoSSLymphocytes/Leukocytes Auto (Bld) [Pure # fraction]1.2 E9/LNormal1.0 - 4.0 E9/LFTMC HemeAutoSSMonocytes/100 WBC (Bld) 13.6 %Normal4.0 - 14.0 %[facility] HemeAutoSSMonocytes/Leukocytes Auto (Bld) [Pure # fraction]0.8 E9/LNormal0.2 - 1.0 E9/LFTMC HemeAutoSSNeutrophils/100 WBC (Bld) 63.0 %Oikrmx18.0 - 75.0 %[facility] HemeAutoSSNeutrophils/Leukocytes Auto (Bld) [Pure # fraction]3.8 E9/LNormal2.0 - 7.5 E9/LFTMC HemeAutoSSHEMATOLOGYOrdered By: Shivani Saleh on 69-43-7522Pngriurbyhk distribution width (RBC) [Ratio]13.7 %Srvuww73.9 - 14.2 %[facility] HemeAutoSSHematocrit (Bld) [Volume fraction]42.1 % Dnkjfx79.7 - 49.0 %[facility] HemeAutoSSHemoglobin (Bld) [Mass/Vol]14.3 g/lQZujaky07.5 - 17.5 gm/dLFTMC HemeAutoSSMCH (RBC) [Entitic mass]30.4 ppKcdtzr50.0 - 34.0 pg FT[facility] HemeAutoSSMCHC (RBC) [Mass/Vol]33.9 g/aWNdsxav64.4 - 36.0 gm/dLFTMC HemeAutoSSMCV (RBC) [Entitic vol]89.7 dDKulkco86.0 - 100.0 fLFTMC HemeAutoSS Platelet mean volume (Bld) [Entitic vol]10.5 fLNormal6.4 - 10.8 fLFTMC HemeAutoSSPlatelets (Bld) [#/Vol]240.0 E9/XPrjnyb026.0 - 500.0 E9/LFTMC HemeAutoSSRBC (Bld) [#/Vol]4.7 E12/LNormal4.3 - 5.9 E12/LFTMC HemeAutoSSWBC corrected for nucl RBC Auto (Bld) [#/Vol]6.0 E9/LNormal4.0 - 11.0 E9/LFTMC HemeAutoSSCT CERVICAL SPINE WO CONTRASTon 53-00-8146OA CERVICAL SPINE WO CONTRASTEXAMINATION: CT OF THE CERVICAL SPINE WITHOUT CONTRAST [...] Signed by: Chino Mcqueen MD 08/01/20 Final resultNormalFisher-Titus Medical CenterNo acute abnormality of the cervical spine. Multilevel degenerative changes.[facility], [place], aubrie Incoming Radiant Results From [employer] - 08/01/2020 1:22 PM EST EXAMINATION: CT [...] of the cervical spine. Multilevel degenerative changes. [facility], [place]EX[place]: CT OF THE CERVICAL SPINE WITHOUT CONTRAST [...] TISSUES: There is no prevertebral soft tissue swelling.[facility], KYCT HEAD WO CONTRASTon 93-54-8985ML HEAD WO CONTRASTEXAMINATION: CT OF THE HEAD WITHOUT CONTRAST 08/01/2020 [...] Roman MD Signed by: Randolph Roman MD 2/1/21 Final resultNoFostoria City Hospitali, Mhpn Incoming Radiant Results From [employer] - 08/01/2020 1:20 PM EST EXAMINATION: CT [...] fossa. 2. No convincing acute intracranial abnormality. [facility], [place]EXAM[place]ATION: CT OF THE HEAD WITHOUT CONTRAST 08/01/2020 [...] of the visualized skull or soft tissues. [facility], [place]1. Streak artifact from dental amalgam limits evaluation of the posterior fossa. 2. No convincing acute intracranial abnormality.[facility], KYCT THORACIC SPINE WO CONTRASTon 32-98-2348EZ THORACIC SPINE WO CONTRASTEXAMINATION: CT OF THE THORACIC SPINE WITHOUT CONTRAST [...] Signed by: Panfilo Middleton MD 08/01/20 Final resultNormalKeenan Private Hospital, [facility] Incoming Radiant Results From [employer] - 08/01/2020 1:29 PM EST EXAMINATION: CT [...] fracture or malalignment of the thoracic spine. [facility], [place]EXAM[place]ATION: CT OF THE THORACIC SPINE WITHOUT CONTRAST [...] narrowing. SOFT TISSUES: No paraspinal mass is seen.[facility], KYNo acute fracture or malalignment of the thoracic spine.[facility], KYXR ELBOW LEFT (MIN 3 VIEWS)on 88-39-2900KI ELBOW LEFT (MIN 3 VIEWS)EXAMINATION: THREE XRAY VIEWS OF THE LEFT ELBOW [...] Signed by: Randolph Roman MD 08/01/20 Final resultNormalKeenan Private Hospital, [facility] Incoming Radiant Results From [employer] - 08/01/2020 1:11 PM EST EXAMINATION: THREE [...] the left elbow. 2. Minimal degenerative changes. [facility], SWAPNAEXAMINATION: THREE XRAY VIEWS OF THE LEFT ELBOW 08/01/2020 12:51 pm COMPARISON: None. HISTORY: ORDERING SYSTEM PROVIDED HISTORY: trauma TECHNOLOGIST PROVIDED HISTORY: trauma Reason for Exam: fall Acuity: Acute Type of Exam: Initial FINDINGS: No acute osseous abnormality seen of the left elbow. There is minimal degenerative changes of the left elbow. No evidence of dislocation. The soft tissues demonstrate no acute abnormality.[facility], [place]1. No acute osseous abnormality identified of the left elbow. 2. Minimal degenerative changes.[facility], [place] Vital Signs Date TimeVital SignValuePerforming FjcbivmsuCrvsmvqi04-49-0911 09:07-0400Body hvltho831.3 cmBrendanbeth Darnell DO Work Phone: [phone] WashingtonHwuqklynvu44-90-9450 09:07-0400Body mass index (BMI) [Ratio]26.78 kg/w3Iecan Mann KARIMI Work Phone: [phone]09-11-2025 09:07-0400Body eugebh72.09 kgAngus Darnell DO Work Phone: [phone] Hospital WashingtonLmmernibuh38-01-4746 09:46-0400Diastolic blood ckqtgrke68 mm[Hg]Elaine Mejia MD Work Phone: [phone]06-27-2025 09:46-0400 Systolic blood mm[Hg]Elaine Mejia MD Work Phone: [phone]06-27-2025 09:35-0400 Body ocjwbl854.42 cmElaine Mejia MD Work Phone: [phone]91[facility]06-27-2025 09:35-0400 Body mass index (BMI) [Ratio]24.4 kg/o0VotsqnElaine Mejia MD Work Phone: [phone]24[facility]06-27-2025 09:35-0400 Body ednscy32.91 kgElaine Mejia MD Work Phone: [phone]06-27-2025 09:35-0400 Heart rate65 /Dann Mejia MD Work Phone: [facility]06-27-2025 09:35-0400 Respiratory rate12 /minElaine Mejia MD Work Phone: [facility]06-27-2025 09:35-0400 SaO2% (BldA) [Mass fraction]99 %Elaine Mejia MD Work Phone: [facility]06-10-2025 08:08-0400 Body .4 cmRtiffanie Boston MD Work Phone: [facility]06-10-2025 08:08-0400 Body mass index (BMI) [Ratio]25.07 kg/p3HgbdjkJaymie Boston MD Work Phone: [facility]06-10-2025 08:08-0400 Body jrhtfe18.18 kgJaymie Boston MD Work Phone: [facility]05-01-2025 14:29-0400 Body zibsvy775.3 cmAngus Darnell DO Work Phone: [phone] [place], [place] 6144105-01-2025 14:29-0400Body mass index (BMI) [Ratio]26.78 kg/x9RwquxAngus Darnell DO Work Phone: [phone] [place], [place] 6144105-01-2025 14:29-0400Body .09 kgAngus Darnell DO Work Phone: [phone] [place], [place] 6144103-27-2025 08:59-0400Body xyzvey822.3 cmAngus Darnell DO Work Phone: [phone] [place], [place] 6144103-27-2025 08:59-0400Body mass index (BMI) [Ratio]26.78 kg/v9PtqrbAngus Darnell DO Work Phone: [phone] [place], [place] 6144103-27-2025 08:59-0400Body .09 kgAngus Darnell DO Work Phone: [phone] [place], [place] 6144103-12-2025 15:36-0400Heart rate53 /min Angus Darnell [address] [place], [place] 5608803-12-2025 15:36-7919MeJ9% (BldA) [Mass fraction]98 %Angus Darnell [address] [place], [place] 5608803-12-2025 15:35-0400 Diastolic blood prlawlmf18 mm[Hg]Angus Darnell [address] [place], [place] 5608803-12-2025 15:35-0400Mean blood luxawozm097 mm[Hg]Angus Darnell [address] [place], [place] 5608803-12-2025 15:35-0400 Systolic blood mm[Hg]Angus Darnell [address] [place], [place] 3302803-12-2025 15:35-0400 Respiratory rate16 /minAngus Darnell [address] [place], [place] 3302803-12-2025 12:18-0400Heart rate57 /Marcin Darnell [address] [place], [place] 5608803-12-2025 12:18-4160BgO9% (BldA) [Mass fraction]95 %Angus Darnell [address] [place], [place] 5608803-12-2025 12:16-0400 Diastolic blood banogsmi89 mm[Hg]Angus Darnell [address] [place], [place] 5608803-12-2025 12:16-0400Mean blood eajvguhh614 mm[Hg]Angus Darnell [address] [place], [place] 5608803-12-2025 12:16-0400 Systolic blood mm[Hg]Angus Darnell [address] [place], [place] 5608803-12-2025 12:16-0400 Respiratory rate18 /Marcin Darnell [address] [place], [place] 5608803-12-2025 12:10-0400Blood Pressure LocationAngus Darnell [address] [place], [place] 5608803-12-2025 12:10-0400Body nuxvxvkqzqa92.24 [degF]Angus Darnell [address] [place], [place] 5608803-12-2025 12:10-0400 Diastolic blood mm[Hg]Angus Darnell [address] [place], [place] 5608803-12-2025 12:10-0400Heart rate53 /Marcin Darnell [address] [place], [place] 5608803-12-2025 12:10-0400Mean blood fytlokqg028 mm[Hg]Angus Darnell [address] [place], [place] 3302803-12-2025 12:10-0400 Respiratory rate25 /Marcin Darnell [address] [place], [place] 3302803-12-2025 12:10-4956HcF2% (BldA) [Mass fraction]94 %Angus Darnell [address] [place], [place] 5608803-12-2025 12:10-0400 Systolic blood mm[Hg]Angus Darnell [address] [place], [place] 5608803-12-2025 12:00-0400Mean blood cosavard26 mm[Hg]Angus Darnell [address] [place], [place] 5608803-12-2025 12:00-0400 Respiratory rate17 /Marcin Darnell [address] [place], [place] 5608803-12-2025 11:55-0400Blood Pressure LocationAngus Darnell [address] [place], [place] 5608803-12-2025 11:55-0400Mean blood eddpsneh77 mm[Hg]Angus Darnell [address] [place], [place] 5608803-12-2025 11:55-0400 Respiratory rate14 /Marcin Darnell [address] [place], [place] 5608803-12-2025 11:43-0400Body ynysasmupdk14.06 [degF]Angus Darnell [address] [place], [place] 5608803-12-2025 11:20-0400 Respiratory rate12 /Marcin Darnell [address] [place], [place] 5608803-12-2025 05:58-0400Mean blood xhoskqtm502 mm[Hg]Angus Darnell [address] [place], [place] 5608803-12-2025 05:56-0400Body lfswampxpvq28.52 [degF]Angus Darnell [address] [place], [place] 5608803-12-2025 05:56-0400Heart rate60 /Leobeth Mann [address] [place], [place] 5608803-04-2025 09:49-0500Body lpdysz450.42 [facility]2025 09:49-0500Body mass index (BMI) [Ratio]25.1 kg/x8LbxhpeoxvSumma Health [facility]03-04-2025 09:49-0500Body .35 kgSumma [facility]03-04-2025 09:49-0500Diastolic blood sxghhqiy53 mm[Hg][facility] 09-01-2024 09:49-0500Heart rate66 /[facility] 09-01-2024 09:49-0500Systolic blood xdfpgzes477 mm[Hg][facility]02-24-2025 12:42-0500Diastolic blood nnniphhb29 mm[Hg]Angus Mann [address] [place], [place] 5608802-24-2025 12:42-0500Heart rate76 /Marcin Darnell [address] [place], [place] 5608802-24-2025 12:42-0500Mean blood zczfojwm898 mm[Hg]Angus Mann [address] [place], [place] 5608802-24-2025 12:42-0500 Systolic blood pevojcxo582 mm[Hg]Angus Darnell [address] [place], [place] 5608802-24-2025 12:41-0500Heart rate60 /Marcin Darnell [address] [place], [place] 5608802-24-2025 12:41-3954IpC2% (BldA) [Mass fraction]99 %Angus Darnell [address] [place], [place] 5608802-24-2025 12:41-0500Body kasypgavzho77.24 [degF]Angus Darnell [address] [place], [place] 5608802-24-2025 12:41-0500Blood Pressure LocationAngus Darnell [address] [place], [place] 5608802-24-2025 12:41-0500 Diastolic blood dgbvopja66 mm[Hg]Angus Darnell [address] [place], [place] 5608802-24-2025 12:41-0500Mean blood muekqypt92 mm[Hg]Angus Darnell [address] [place], [place] 5608802-24-2025 12:41-0500 Systolic blood rafqikoa792 mm[Hg]Angus Darnell [address] [place], [place] 5608802-24-2025 12:40-0500 Respiratory rate16 /Marcin Darnell [address] [place], [place] 5608802-06-2025 10:10-0500Body bppwab016.3 cmBrendanbeth Mann [employer] Work Phone: [phone] [place], [place] [address]Cwzhlrpfef87-11-2905 10:10-0500Body mass index (BMI) [Ratio]26.78 kg/a7Wucjy Mann KARIMI Work Phone: [phone])[facility] [place], [place] [address]Nmnycvcdvj27-70-6594 10:10-0500Body temperature 97.5 [degF]Angus Darnell DO Work Phone: [phone] [place], [place] [address]Olxcgiynnq23-50-0053 10:10-0500Body rmdtyy73.09 kgBrendanbeth Mann [employer] Work Phone: [phone] [place], [place] [address]Phrkwdfymd29-94-7941 15:41-0500Body ypdfod448.6 [facility] TE Work Phone: [phone] [place], [place] 6144111-25-2024 15:41-0500Body mass index (BMI) [Ratio]26.41 kg/m2[facility] Work Phone: [phone] WashingtonEgbnaqdxmz79-84-0276 15:41-0500Body .09 kgWest [facility] Work Phone: [phone]08-01-2024 10:58-0400Body fzazly041.42 cmSum[facility]08-01-2024 10:58-0400Body mass index (BMI) [Ratio]24.6 kg/g2KsumbyvhsSumma Health Akron Campus08-01-2024 10:58-0400Body halhfn18.82 [facility]08-01-2024 10:58-0400Diastolic blood lvyzkhio52 mm[Hg][facility]08-01-2024 10:58-0400 Heart rate57 /[facility]08-01-2024 10:58-0400Systolic blood lhhgweuw196 mm[Hg][facility]03-21-2024 08:30-0400 Body uzgdah270.42 cmSum[facility]03-21-2024 08:30-0400Body mass index (BMI) [Ratio]25.6 kg/w4CtdexbecxSumma Health [facility] Campus03-21-2024 08:30-0400Body tbshzy87.99 kgSumma Health [facility]03-21-2024 08:30-0400Diastolic blood kxrayjht34 mm[Hg][facility] 09-19-2023 08:30-0400Heart rate57 /[facility] 09-19-2023 08:30-0400Systolic blood hjahnkqp020 mm[Hg][facility]12-07-2023 10:15-0500Body terosu267.42 cmElaine Mejia Other [employer] Other 422189-52-9484 10:15-0500Body mass index (BMI) [Ratio] 25.54 kg/p6KhzgeeElaine Mejia Other [employer] Other 12-07-2023 10:15-0500Body ujkfuc83.82 kgElaine Jackie Other [employer] Other 12-07-2023 10:15-0500Diastolic blood axffbsmq68 mm[Hg] Elaine Mejia Other [employer] Other 12-07-2023 10:15-0500Systolic blood hxcwdhop528 mm[Hg] Elaine Mejia Other [employer] Other 10-20-2023 09:30-0400Body kxywwu266.42 cmNickinaif Mejia Other [employer] Other 10-20-2023 09:30-0400Body mass index (BMI) [Ratio]24.7 kg/z9TvbwrbElaine Mejia Other [employer] Other 10-20-2023 09:30-0400Body uprdkn51.91 kgChanellgiuliano Mejia Other [employer] Other 10-20-2023 09:30-0400Diastolic blood wyaepwdg75 mm[Hg] Elaine Mejia Other [employer] Other 10-20-2023 09:30-0400Systolic blood ywufqhzr287 mm[Hg] Elaine Mejia Other [employer] Other 07-09-2022 07:59-0400Body vgpxgcoveri99.7 [degF][facility]ill [facility]07-09-2022 07:59-0400 Diastolic blood egesgjuy49 mm[Hg][facility]irill [facility]07-09-2022 07:59-0400Heart rate60 /anujKirill Simon [facility]07-09-2022 07:59-0400 Respiratory rate15 /minKirill Alfred [facility]07-09-2022 07:59-2055ZlR8% (BldA) [Mass fraction]98 %Kirill [facility]07-09-2022 07:59-0400 Systolic blood atzfltof616 mm[Hg][facility]02-01-2021 13:03-0500Body Hsfxncmrpjg69.59 [degF][place], [place]02-01-2021 12:35-0500BP Bqugrtykd63 mm[Hg][place]02-01-2021 12:35-0500BP Systolic 149 mm[Hg][place], [place]02-01-2021 12:35-0500Pulse (Heart Rate) 76 /[place] 12:35-0500Pulse Elkpmmvr98 % [place], [place]02-01-2021 12:35-0500Respiratory Rate18 /[facility] [place] Encounters Encounter DateEncounter TypeCare ProviderFacilityStart: 04-22-2025 End: 75-61-8205Eacjyirhea Patton MD Work Phone: [facility] EyeStart: 04-22-2025 End: 07-66-2249Dccxlrrhea Patton MD Work Phone: [facility] EyeStart: 04-22-2025 End: 53-14-3926PutwpwJmrbv M Allen MD Work Phone: [facility] EyeComment on above:Age-related nuclear cataract of both eyes (Primary Dx)Start: 03-11-2025 End: 98-30-6392Tvighis encounter procedureAngus Darnell DO Work Phone: [facility] [place] [facility]opaedicsComment on above:Status post total knee replacement, right (Primary Dx)Start: 03-11-2025 End: 64-03-1944kxnjuhkeekHBVMY A BROWNNot AvailableStart: 03-11-2025 End: 05-16-8962ktdvizytshVZNAN A BROWNNot AvailableStart: 12-25-2024 End: 59-66-1695njsugzutyxTrwvkl E Braun MD Work Phone: [facility] Work Phone: Start: 12-25-2024 End: 98-78-8076Qkprpmb encounter procedureElaine Mejia MD-[facility] Work Phone: Start: 12-08-2024 End: 22-34-6436Zcswat outpatient new 60 minutesRobalok Boston MD Work Phone: [facility] HospitalComment on above: Lumbar pain; Lumbar radiculopathyStart: 12-08-2024 End: 60-89-8977Fkvffufpau hospital visit by Yovana Cantu101 X-Ray 2[facility] HospitalComment on above:Lumbar painStart: 12-08-2024 End: 77-65-5458dxwfegqcdxQMAMKQ J [facility] Hospitaltart: 81-70-0641Qzm-patient / Non-visitDafneWilson [address] [facility] Work Phone: Start: 10-29-2024 End: 88-28-5240Rehokmv encounter procedureAngus Darnell DO Work Phone: noms ORTHOComment on above:Status post total knee replacement, right (Primary Dx)Start: 10-29-2024 End: 58-78-8664fxcgobqqysESZAG A BROWNNot AvailableStart: 10-29-2024 End: 27-30-7454Hbebkl flowsheetInés KCNORTHWEST CENTER [facility] PTStart: 10-29-2024 End: 40-50-4909Thvtzn flowsheetMelissa Kelbley PTANOMS CI PTStart: 10-29-2024 End: 36-80-1267bzrvcburyvOXCIB A BROWNNot AvailableStart: 10-29-2024 End: 58-64-5955bzwigqrlotCtifurd Kelbley PTANOMS CI PTComment on above:Localized osteoarthritis of right knee (Primary Dx); Status post total knee replacement, rightStart: 10-27-2024 End: 48-42-9534Cvrjvh flowsheetMelissa Kelbley PTANOMS CI PTStart: 10-27-2024 End: 72-55-6766Hmuxvn flowsheetMelissa Kelbley PTANOMS CI PTStart: 10-27-2024 End: 93-50-6914ijnvhmmlshYublaje Kelbley PTANOMS CI PTComment on above:Localized osteoarthritis of right knee (Primary Dx); Status post total knee replacement, rightStart: 10-23-2024 End: 31-75-6922Dvxlts flowsheetKennetmicheal Arnoldo PTANOMS CI PTStart: 10-23-2024 End: 30-15-0353Yvmokw flowsheetDelroynetmicheal Arnoldo PTANOMS CI PTStart: 10-23-2024 End: 07-81-5313pfeayuzxilRzjknhx Lawrence PTANOMS CI PTComment on above: Localized osteoarthritis of right knee (Primary Dx); Status post total knee replacement, rightStart: 10-19-2024 End: 17-05-7535Jqpfwh flowsheetMelissa Kelbley PTANOMS CI PTStart: 10-19-2024 End: 49-86-1676Sbiggf flowsheetMelissa Kelbley PTANOMS CI PTStart: 10-19-2024 End: 81-54-4862qmrhutfypdCbsvtzr Kelbley PTANOMS CI PTComment on above:Status post total knee replacement, right (Primary Dx); Localized osteoarthritis of right kneeStart: 10-15-2024 End: 08-79-5129Wbfgrl flowsheetSammantha Munoz PTNOMS CI PTStart: 10-15-2024 End: 50-92-9374Vhomfj flowsheetSammantha Munoz PTNOMS CI PTStart: 10-15-2024 End: 82-14-3371jyccemjausHvlufdiuv Munoz PTNOMS CI PTComment on above: Localized osteoarthritis of right knee (Primary Dx); Status post total knee replacement, rightStart: 10-13-2024 End: 28-73-4357Njzqzk flowsheetMelissa Kelbley PTANOMS CI PTStart: 10-13-2024 End: 47-01-1746Uyuvda flowsheetMelissa Kelbley PTANOMS CI PTStart: 10-13-2024 End: 50-39-2368heoqdeeeknMhnquyx Kelbley PTANOMS CI PTComment on above:Status post total knee replacement, right (Primary Dx); Localized osteoarthritis of right kneeStart: 10-09-2024 End: 35-79-7757Tkrxsz flowsheetSammantha Munoz PTNOMS CI PTStart: 10-09-2024 End: 23-81-2927Aaiibm flowsheetSammantha Munoz PTNOMS CI PTStart: 10-09-2024 End: 67-81-6902aooigpcoyfHsbfimucc Munoz PTNOMS CI PTComment on above:Status post total knee replacement, right (Primary Dx); Localized osteoarthritis of right kneeStart: 10-06-2024 End: 11-65-2565Fccnns flowsheetSammantha Munoz PTNOMS CI PTStart: 10-06-2024 End: 29-63-8481Fqfmav flowsheetSammantha Munoz PTNOMS CI PTStart: 10-06-2024 End: 32-78-2487iapmwwsyqrMoakdyatx Munoz PTNOMS CI PTComment on above: Localized osteoarthritis of right knee (Primary Dx); Status post total knee replacement, rightStart: 09-24-2024 End: 00-51-4244Btjeozp encounter procedureAngus Darnell DO Work Phone: noms NB ORTHOComment on above:Status post total knee replacement, right (Primary Dx); Acute pain of left kneeStart: 09-24-2024 End: 92-36-7711jcoabiwwhkMVLVX A BROWNNot AvailableStart: 09-24-2024 End: 25-10-3570pdjkrhxbdjHCYYL A BROWNNot AvailableStart: 09-09-2024 End: 54-41-6608Sbcmoijzh Result EncounterAngus Darnell DO Work Phone: noms External Department UnsolicitedStart: 09-09-2024 End: 31-88-1405Tocdtxzcn Result EncounterAngus Darnell DO Work Phone: noms External Department UnsolicitedStart: 09-09-2024 End: 01-40-7073Akkpqzwma to same day surgery rebeccaAngus Nobles Mann [facility] Start: 09-09-2024 End: 35-63-2512ctbjlxccqzQnehq Giuliano MannFacility:FTMCStart: 09-07-2024 End: 55-15-0292jqjraspoiyIahxrqe Vytautas Giedraitis MDFacility:[facility] [place] Start: 09-01-2024 End: 60-59-6701zyqqfjnhtaIgitkssbzMercy Hospital Work Phone: Start: 09-01-2024 End: 01-19-3364Tfvsrgp encounter procedureAngel Medical Center Physician GroupThe [facility] Hospital Work Phone: Start: 08-24-2024 End: 97-18-9111Nycwutxcv Result EncounterAngus Darnell DO Work Phone: noms External Department UnsolicitedStart: 08-24-2024 End: 54-30-1979Pqkqblezm Result EncounterAngus Darnell DO Work Phone: noms External Department UnsolicitedStart: 08-24-2024 End: 71-07-2863geugsefqayEO Angus Nobles MannFacility:FTMCStart: 08-24-2024 End: 49-57-3200Dpnixib encounter procedureAngus Giuliano Mann [facility] Start: 08-06-2024 End: 02-65-5947Qorpgx flowsheetAngus Nobles Mann Work Phone: noms ORTHOStart: 08-06-2024 End: 33-53-8571Xaguxm flowsheetAngus Darnell DO Work Phone: noMS ORTHOStart: 08-06-2024 End: 99-77-5500Raezaic encounter procedureAngus Darnell DO Work Phone: noms NB ORTHOComment on above:Osteoarthritis of patellofemoral joints of both kneesStart: 08-06-2024 End: 05-41-0402mrcgyaxktlLBGAU A BROWNNot AvailableStart: 07-13-2024 End: 99-31-3358hizbngivyhDpycruc Vytautas Giedraitis MDFacility:[facility] [place] Start: 05-25-2024 End: 71-27-9799Iklbizk encounter Khanh TIWARI Work Phone: noms NB ORTHOComment on above:Localized osteoarthritis of left knee (Primary Dx); Acute pain of left knee; Osteoarthritis of patellofemoral joints of both kneesStart: 05-25-2024 End: 56-19-8740cnlrwkkcmcTUUK D HILLSNot AvailableStart: 05-25-2024 End: 48-09-9603swzvuimcvrKEHV D HILLSNot AvailableStart: 01-30-2024 End: 44-93-9285zzpiacgdtzBxpnqiqelTriHealth [facility] Work Phone: Start: 01-30-2024 End: 63-54-0303Lnosckp encounter procedureAngel Medical Center Physician GroupThe [facility] Hospital Work Phone: Start: 12-02-2023 End: 74-57-9626pbqhinzeliKsfnprc Vytautas Giedraitis MDFacility:[facility] [place] Start: 11-11-2023 End: 86-69-2820cexlhcpeqgZaeommf Vytautas Giedraitis MDFacility:[facility] Start: 10-28-2023 End: 62-84-9451haymkjyhaiDhtqrbx Vytautas Giedraitis MDFacility:[facility] [place] Start: 10-14-2023 End: 28-89-1520gibuqlxdqiHoespvk Vytautas Giedraitis MDFacility:[facility] Start: 09-19-2023 End: 44-46-5598ixgmrjuuyzHtazjbqtkMercy Hospital Work Phone: Start: 09-19-2023 End: 47-44-5160Ymssjbm encounter procedureAngel Medical Center Physician Group-[facility] Work Phone: Start: 06-06-2023 End: 74-97-6507fekurgorayDsrgdz Braun Other [employer] Other Start: 66-74-4788Ojabya outpatient visit 15 minutes Elaine MejiaDiley Ridge Medical Centertart: 04-25-2023 End: 67-43-4178gqpfieaupmDqmhli Braun Other noAlfred Other Start: 12-14-2263Qkrdbszof encounterMarnaif [facility] Centertart: 04-19-2023 End: 32-39-1199mswsetgsykFhwhyg Braun Other [employer] Other Start: 46-06-4158Xsnaklv encounter procedureMarmalindagiuliano [facility] Centertart: 01-13-2022 End: 74-96-9460acwgalqalvFV ELAINE MEJIAFacility:G9Aoeht: 01-06-2022 End: 30-72-6582Whkgdtnxd department patient visitKirill Simon [facility] Start: 01-06-2022 End: 17-85-8091qtjxeaudlpPR LENA MARIEFacility:S9Oplkm: 01-03-2022 End: 54-19-7379Ytbayqd encounter procedureELAINE MEJIA [facility] Start: 10-09-2021 End: 74-17-4416Amwxgxs encounter procedureBeth Bradley [facility] Start: 08-01-2020 End: 26-98-8469Mkfahurps department patient visitRANMICHAEL Vieira [facility] Hospitaltart: 08-01-2020 End: 07-32-8260Mkrkntxce department patient visitRanmichael Estrella Work Phone: [facility] EDComment on above:Closed head injury, initial encounter (Primary Dx) Procedures DateProcedureProcedure DetailPerforming ClinicianStart: 99-53-9644Dah bmtry prtl coher intrfrmtry io lens pwr Rachel Patton MD Work Phone: Start: 04-22-2025 End: 46-01-4103Gwhzh medical xm&eval compre new pt 1/> vstAge-related nuclear cataract of both eyesKaylie Patton MD Work Phone: comment on above:Age-related nuclear cataract of both eyes (Primary Dx); Brow ptosis; Dermatochalasis of upper and lower eyelids of both eyesStart: 03-11-2025 Radiologic examination knee 3 viewsAngus Darnell DO Work Phone: Start: 34-49-5060Prshq spine lumbosacral only bending 2/3 viewsJaymie Boston MD Work Phone: Start: 84-57-7970Helpwqraqe examination knee 3 views Angus Darnell DO Work Phone: Start: 02-68-3844Ufvgqljexjdbeo aspir&/inj major jt/bursa w/o usAngus Darnell DO Work Phone: Start: 17-79-4936Rhwzoxwnpi examination knee 3 views Angus Darnell DO Work Phone: Start: 35-10-3989ZH KNEE 1 OR 2 VIEWS RIGHTBrendanbeth Darnell DO Work Phone: Start: 00-24-2359Qvanl knee replacementAngus Darnell Start: 87-92-3706QM LOWER EXTREMITY W/O CONTRAST RIGHT Angus Nobles Mann DO Work Phone: Start: 64-71-5118FL WITH CULT RFLXAngus Nobles Mann DO Work Phone: Start: 82-71-7597Hnngqahmmwmsww aspir&/inj major jt/bursa w/o usTozaynab Bland PA Work Phone: Start: 70-21-9983Yrhxvtohhn examination knee 1/2 views Barbara Bland PA Work Phone: Start: 99-21-4540Ot thoracic spine w/o contrast Dayna Alcala Work Phone: Start: 72-56-8517Jz cervical spine w/o contrast Dayna Alcala Work Phone: Start: 06-38-3833Us head/brain w/o contrast material George Alcala Work Phone: Start: 53-66-7223Akifc elbow complete minimum 3 views George Alcala Work Phone: broke legBasem Bradley Hernia Kellen Darnell Plan of Treatment DateCare ActivityDetailAuthorStart: 81-81-1664MUkN/Tdap/Td vaccine (2 - Td) DTaP/Tdap/Td vaccine (2 - Td)[facility]: 97-40-0341BOrH/Tdap/Td Vaccines (3 - Td or Tdap)DTaP/Tdap/Td Vaccines (3 - Td or Tdap)[facility]: 52-10-3078JLP High Risk: (Elderly (60+) or Population) (1 - 1-dose 75+ series)RSV High Risk: (Elderly (60+) or Population) (1 - 1-dose 75+ series)[facility]: 09-09-2025 End: 25-03-9419Xipsgkk encounter uuymdikgu42/12/2026 9:00 AM EDT Office Visit [facility] [address] [place] [id number] Angus Darnell DO [address] [place] [address] [facility]Start: 06-01-2025 End: 01-87-7036Hsxtmxn encounter hllofbouj08/02/2025 1:00 PM EST Office [facility] [address] [place] [address] Kaylie Patton MD [address] [place] [address] [facility] EyeStart: 04-22-2025 End: 64-00-1505Agvdwpt encounter /23/2025 9:15 AM EDT Office Visit [facility] [address] [place] [phone] Kaylie Patton MD [address] [place] [address] [facility] EyeComment on above:ArrivedStart: 03-11-2025 End: 78-91-7328Pyhdpix encounter fsgnkogfq09/11/2025 9:00 AM EDT Office Visit [facility] [address] [place] [address] Angus Darnell DO [address] [place] [address] NOMS [facility] ORTHOStart: 01-58-6865Fvxjobfyz [facility] HealthcareStart: 12-08-2024 End: 87-28-6090BU Lumbar spine Views W flexion and W [facility]ARTESIA [facility] Service Area Work Phone: Comment on above:Expected: 12/08/2024, Expires: 12/08/2025Start: 10-29-2024 End: 52-84-2304Msxxrbr encounter procedureNOMS NB ORTHOStart: 10-29-2024 End: 83-91-7019zplmtwlxmd29/01/2025 9:30 AM EDT Treatment [facility] [address] [facility] [address] [place] [address] Cassia Munoz, PTNOMS CI PTStart: 10-27-2024 End: 64-53-7875pmeslpcxgv56/29/2025 9:00 AM EDT Treatment [facility] [address] [facility] [address] [place] [address] Rosita, Inés, FUR STYLIST NOMS CI PTStart: 10-23-2024 End: 10-50-8655vgawjxfdmsLLMA CI PTComment on above:ArrivedStart: 10-22-2024 End: 70-98-1032Owoyheo encounter dkjudeqjk95/24/2025 10:45 AM EDT Office Visit [facility] [address] [place] [phone] Angus Darnell DO [address] [facility] [place] [address] NOMS [facility] ORTHOStart: 10-19-2024 End: 72-31-2727qlqtwaabmmYGWA CI PTComment on above:ArrivedStart: 10-15-2024 End: 59-09-5422ogtlgrsunbDUKH CI PTComment on above:Localized osteoarthritis of right knee (Primary Dx); Status post total knee replacement, rightStart: 10-13-2024 End: 04-77-4899ojnaqexochGKUO CI PTComment on above:ArrivedStart: 10-09-2024 End: 24-83-9631urtkubuwok36/11/2025 9:00 AM EDT Treatment [facility] [address] [facility] [address] [place] [address] Cassia Munoz, PTNOMS CI PTStart: 10-06-2024 End: 89-93-4495ebcdgcjzobLUIZ CI PTComment on above:Status post total knee replacement, rightStart: 09-24-2024 End: 92-63-7626Latzcov encounter /27/2025 9:00 AM EDT Office Visit [facility] [address] [place] [id number] Angus Darnell, [address] [address] [facility]Start: 08-24-2024 End: 55-37-9954Mfiiuknene complete panel - UrineUrinalysis with reflex microscopic Lab Routine Osteoarthritis of patellofemoral joints of both knees Expected: 08/24/2024 (Approximate), Expires: 08/24/2025[facility] Work Phone: Comment on above:Expected: 08/24/2024 (Approximate), Expires: 08/24/2025Start: 08-06-2024 End: 81-21-8495Fcontcx encounter /06/2025 10:30 AM EST Office Visit [facility] [address] [place] [phone] Angus Darnell DO [address] [place] [address] ArrivedNOMS ESPAÑA ORTHOComment on above:ArrivedStart: 03-01-2024 COVID-19 Vaccine ( season)COVID-19 Vaccine ( season) [facility]: [facility]-5249Eudidkhxu vaccinationInfluenza Vaccine (#1)[facility]: 70-54-5178Zudkglqegnkg vaccination Pneumococcal Vaccine (2 of 2 - PCV20 or PCV21)[facility] Start: 53-23-5853Gtwcsasioqpo Vaccine: 65+ Years (2 of 2 - PCV20 or PCV21) Pneumococcal Vaccine: 65+ Years (2 of 2 - PCV20 or PCV21)[facility]: 65-41-2796Wrznwdyvogkb Vaccine: 65+ Years (2 of 2 - PPSV23 or PCV20)Pneumococcal Vaccine: 65+ Years (2 of 2 - PPSV23 or PCV20)[facility]: [facility] Influenza vaccinationFlu vaccine (#1)[facility]: 2018 Pneumococcal 65+ years Vaccine (1 of 1 - PPSV23)Pneumococcal 65+ years Vaccine (1 of 1 - PPSV23)[facility]: 25-98-5502Gykqszmwsnvj Vaccine: 65+ Years (1 of 1 - PCV)Pneumococcal Vaccine: 65+ Years (1 of 1 - PCV)[facility]: 76-84-4908Bkzrypmqceog Vaccine: 65+ Years (1 of 1 - PCV) Pneumococcal Vaccine: 65+ Years (1 of 1 - PCV)[facility] WashingtonStrugby[facility] 2003 Screening for malignant neoplasm of colonColon cancer screen colonoscopyUC Medical Center: 98-67-5580Meeutocz Vaccine (1 of 2)Shingles Vaccine (1 of 2)[facility]: 41-44-4318Wwexsx Vaccines (1 of 2)Zoster Vaccines (1 of 2)[facility]Start: 42-18-0318Dnawx panelLipid [facility]: 30-60-6305Ulsaotxfr C screeningHepatitis C ScreeningUnKindred HealthcareStart: 34-36-9409Mannvqulc aortic aneurysm screeningAAA [facility]: 41-79-0106Qxocfuotn C screeningHepatitis C [facility]: 94-36-6456Paipo panelLipid PanelUnKindred HealthcareStart: 1953Medicare Annual Wellness VisitMedicare Annual Wellness Visit (AWV)[facility] Start: 42-95-5430Jzddzrrlv for malignant neoplasm of colonNOMS HealthcareCT Chest WO [facility] CampusPatient EducationLow back pain in adultsAdena Health System Work Phone: xr Lumbar spine 2 or 3 [facility] Immunizations Immunization DateImmunizationNotesCare PdqppgczOmwcefqg94-61-2708jkhqizoad virus vaccine, unspecified formulationSumma Health [facility] Campus10-20-2023 influenza, high dose seasonal, preservative-freeElaine Mejia Other [employer] Other [id number]-79, mRNA, LNP-S, PF, 30 mcg/0.3 mL dose; Translations: [Pfizer-BioNTech COVID-19 Vaccine][facility] [employer] [facility] JacksonComment on above:Reason for Medication: Esrrbptfggk79-95-0413NYVDE-85, mRNA, LNP-S, PF, 30 mcg/0.3 mL dose; Translations: [Pfizer-BioNTech COVID-19 Vaccine][facility] [employer] [facility] JacksonComment on above:Reason for Medication: Nwmgzdhxhrv40-98-1155hbnatrm toxoid, reduced diphtheria toxoid, and acellular pertussis vaccine, adsorbed; Translations:[Adacel (Tdap)][facility] [employer] [facility]10-28-2019influenza virus vaccine, split virus (incl. purified surface antigen)Elaine Mejia Other [employer] [facility] [employer] Other 653449-36-9100uepucsqjr virus vaccine, unspecified formulationSumma Health Akron Campus10-28-2019pneumococcal conjugate vaccine, 13 valentMarcia Jackie Other [facility]01-08-2018diphtheria, tetanus toxoids and acellular pertussis vaccine, unspecified formulationChanella Jackie Other [facility]08-08-2017influenza virus vaccine, unspecified formulationAngus Darnell DO Work Phone: [facility] Payers DatePayer CategoryPayerPolicy [id number] supplemental policy (as second payer)[employer] [id number] Health InsuranceAARP [id number] [id number] 1960Medicare [id number] [id number]89-45-6429[facility] [id number] 1.2.840.098903.1.13.239.2.7.3.158930.56053-25-5566Iivizlp [id number] 2.16.840.1.253812.3.57[id number] 2.16.840.1.352503.3.57[id number] 2.16.840.1.967829.3.57[id number] 2.16840.1.085286.3.57[id number] 2.160.1.405053.3.57[id number] 2.16840.1.409283.3.57[id number] 2.0.1.355702.3.57[id number] 2.0.1.939768.3.57[id number] 2..1.562403.3.57[id number] 2..1.883072.3.579.[id number] 2.0.1.934033.3.57[id number] 2..1.051643.3.57[id number] 2..1.794589.3.579.2.[id number] 2.0.1.667905.3.57[id number] 2.0.1.356339.3.579.[id number] 2.0.1.751264.3.57[id number] 2.840.1.463562.3.579.2.[id number] 2.16.840.1.328848.3.579.2.699937-63-3995Jfvypfj8058468 2.16.840.1.237194.3.579.2.566534-81-7008Loltpjc8436288 2.16840.1.690699.3.579.2.588444-10-5088Laqablt2512758 2.16840.1.004582.3.579.2.232913-00-2341Henyfei2882268 2.160.1.699757.3.579.2.556646-76-8178Ffqsuyr9783383 2.160.1.380299.3.579.2.286399-94-1097Pcfgckf3173388 2.0.1.206761.3.579.2.283545-59-7330Sflntia4176597 2.0.1.329098.3.57[id number] 2.0.1.097756.3.579.2.419458-90-1315Dnibejc1423089 2.0.1.657527.3.579.2.433669-40-2017Timdqlc8168097 2.0.1.226765.3.579.2.451034-82-0912Zusuzdh6905569 2.160.1.869624.3.579.2.356615-42-1643Mhaakti7387985 2.160.1.831930.3.579.2.030028-31-7055Jyvimzq1252064 2.16840.1.453662.3.579.2.708307-60-3263Uwbvwac8276012 2.160.1.840422.3.579.2.1259 Social History DateTypeDetailFacilityStart: 08-01-2020 End: 06-32-8360Fuccyfl smoking status NHISCurrent every day smokerBloomingburg, [place]History of tobacco useCigarette SmokerBloomingburg, [place]Start: 08-01-2020 End: 42-39-2820Ucsgfsl use and exposureNever usedBloomingburg, [place]Start: 08-01-2020 End: 78-26-4702Xivvisy intakeCurrent drinker of alcohol (finding)[facility], KYStart: 51-03-2909Dndyeru Commentdaily 3-4 beers per dayBloomingburg, KYStart: 37-79-5714Eyq Assigned At [facility] CenterNot on Marion HospitalComment on above:smokes 1 ppd.Start: 05-25-2024 End: 81-40-7608Rkp Assigned At [facility] Centertart: 03-14-5670Ppr Assigned At [facility] Hospitaltart: 05-25-2024 End: 40-05-9482Wgogriq of Social functionNOMD HealthcareStart: 68-99-7373Vwmwfxk CommentDailyNODoctors Hospital of SpringfieldTobacco smoking statusNo Smoking Status EnteredHolzer Medical Center [facility] Tobacco smoking status NHISUnknown if ever smoked [facility] Work Phone: Start: 18-94-7027IyeWzvc (finding)[facility] Hospitaltart: 11-28-2024 End: 39-15-0756Jihpmigi to SARS-CoV-2 (event)Not [facility] Work Phone: Start: 91-92-7720PeiYbxoXDGC Healthcare Medical Equipment Procedure CodeEquipment CodeEquipment Original TextEquipment IdentifierDatesKNEE TOTAL ROBOT ARTHROPLASTY Angus Darnell DO 09/09/24 Unknown Knee RFDAStart: 47-62-3153CNPR TOTAL ROBOT ARTHROPLASTY Angus Darnell DO 09/09/24 Unknown Knee R FDAStart: 80-81-3003SMVV TOTAL ROBOT ARTHROPLASTY Angus Darnell DO 09/09/24 Unknown Knee RFDAStart: 82-04-5882NVWL TOTAL ROBOT ARTHROPLASTY Angus Darnell DO 09/09/24 Unknown Knee RFDAStart: 09-09-2024 Functional Status UpooMkvbphksdtPytkcuQriyzbgz72-15-0627Fxgzolipxq StatusNoFisher - [facility] CenterVhpnhi94-60-1987Vcurqacoar StatusN/AFisher - [facility] Clinical Notes 10-04-2021 to 04-22-2025 Note Date & NmhuLhwqOctshqux47-94-4816 History of Present illness Narrative* Kaylie Patton MD - 04/22/2025 9:15 AM EDT Allergies[1] Medical History[2] Assessment/Plan Visually Significant Cataract, OU: I discussed the risks, benefits, alternatives, and expectations of cataract surgery. A complete ophthalmic exam was performed and it was determined that the cataracts were a primary source of vision decline, affecting activities of daily living, nec essitating removal. Limited vision post-surgery may occur with pre-existing conditions affecting other areas of the eye or the brain was explained and the patient displayed an understanding. The overall objective is to improve ADLs, not eliminate glasses or restore vision to 20/20. Tests were reviewed - the different lens options were explained including the mhd-sv-cxgupt fees for any upgrades. Intraocular lens (IOL) selection may be altered either prior to or during the procedure based on the doctor's discretion including reverting to a traditional intraocular lens (IOL). They understood that there will exist the potential of glasses prescription need post surgery for near, distance or poss ibly both. The patient stated a full understanding and a desire to proceed with the procedure. The patient received cataract measurements and had any additional questions answered. - A complete exam was performed including a physical exam: General: AAOx3 and NAD, Lungs: Clear, Heart: RRR, Abdomen: S/NT/ND, Extremities: no pitting edema. Symptomatic dermatochalasis/brow ptosis Repair prn [1] No Known Allergies [2] Past Medical History: Diagnosis Date Arthritis documented in this encounterMercy Hospital WashingtonCnkuxbjlbj01-32-1858 History of Present illness Narrative* Angus Darnell DO - 03/11/2025 9:00 AM EDT Images from the original note were not included. @NIESHA@ Rosalio Jarquin is a 70 y.o. male who presents for Follow-up of the Right Knee (R TKA 09/09/24 [facility] [facility] HPI: History of Present Illness The patient is a 70-year-old male who presents today to follow up on both of his knees. He is 6 months status post right total knee arthroplasty, with the surgery having been performed on 09/09/2024. He reports that his right knee, which underwent total arthroplasty, is functioning well. He is ableto kneel on it without discomfort. However, he experiences some difficulty with his left knee. His left knee was injected with Zilretta on 09/24/2024. SUBJECTIVE: MEDICATIONS: Current Outpatient Medications Medication Instructions escitalopram (LEXAPRO) 10 mg, Daily ibuprofen 800 MG tablet TAKE 1 TABLET BY MOUTH TWICE DAILY WITH FOOD NEEDED FOR PAIN lamoTRIgine (LaMICtal) 25 MG tablet 1 tablet, Nightly loratadine (Claritin) 10 MG tablet losartan (COZAAR) 100 mg, Daily methocarbamol (Robaxin) 500 MG tablet TAKE 1 TABLET BY MOUTH EVERY EVENING NEEDED zolpidem CR (Ambien CR) 6.25 MG ER tablet TAKE 1 TABLET BY MOUTH 30 TO 60 MINUTES BEFORE LIGHTS OUTDURING THE SLEEP STUDY ONCE. DO NOT TAKE BEFORE ARRIVING TO THE SLEEP CENTER. ALLERGIES: No Known Allergies SURGICAL HISTORY: Past Surgical History: Procedure Laterality Date ANKLE SURGERY Left TOTAL KNEE ARTHROPLASTY Right 09/09/2024 [facility] [place] [facility] JIM FAMILY HISTORY: No family history on file. [...] acute distress. Mood and affect are appropriate. Gait: Ambulating independently, walks with a nonantalgic gait Right knee: Incision is benign and well healed, no effusion, full extension, flexion to 126 degrees, patella is tracking appropriately, strength is 5 out of 5 in flexion and extension, no varus or valgus instability Left knee: No effusion, full extension, flexion to 130 degrees, tender at the patellofemoral joint,tender at the medial joint line, negative anterior and posterior drawer, no varus or valgus instability Ortho Exam Results Three views, bilateral PA weight-bearing/sunrise/lateral right knee, taken today and saved to the permanent medical record are reviewed. Prosthesis is unchanged in position and alignment. No signs ofprosthetic wear or loosening. No periprosthetic fractures. Complete loss lateral PF joint left knee. ASSESSMENT AND PLAN: I reviewed the history, physical exam, diagnostic studies, and diagnosis with the patient. Assessment & Plan 1. Six months status post right total knee arthroplasty. I reminded the patient of the need for lifelong prophylactic antibiotics prior to any dental procedures. 2. Advanced degenerative osteoarthrosis, left knee. A Zilretta injection was administered to the left knee today. If symptoms worsen before 08/2025, notify the office for alternative treatment options. The goal is to manage pain and maintain mobility through the fall. After informed consent and using sterile technique, the superolateral aspect of the left knee(s) was prepped with alcohol and Betadine. The skin was anesthetized with ethyl chloride and the knee was then injected with 5 mL Zilretta with a 22-gauge 1 1/2 inch needle. The patient tolerated this well.A Band-Aid was applied. The patient was instructed to ice the knee and to watch for any signs of infection including redness, increased pain in the knee, drainage from the injection site, fever, chills, etc. The patient was instructed to call the office if he/she experiences any adverse reaction from the injection. Follow-up: 08/2025 with right knee xrays. A total of 30 to 39 minutes was spent on this patient encounter which included chart review, check in, nurse triage, history taking, physical examination, diagnostic study review, patient counseling and discussion, entering information into the patient's medical record, and coordinating patient care. Diagnoses and all orders for this visit: Status post total knee replacement, right - XR knee 3 views right Angus Darnell D.O. Attestation This note was created using voice recognition through Exterity artificial intelligence. 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 It is getting worse over the past couple years. He has had pain management with [facility] but no other treatments. He had an MRI and his pain doctor told him he needed to come see me. [place] in [place]. He has no physical therapy chiropractic or acupuncture. Activity makes his pain worse. Rest makes it better. No fevers chills nauseavomiting. No bowel or bladder changes. No history [...] imaging studies. He is severely inhibited with bodilyfunction due to his back pain. I had a long discussion with the patient and explained to them that their options are 1) live with the symptoms and see how they evolve, 2) physical therapy, 3) pain management or 4) surgery. I explained at length to him and his daughter that an operation on him wouldreally only help benefit his leg symptoms not [...] with us on a as needed basis ifhe develops more predominant leg symptoms. documented in this [facility] Work Phone: 1(294) 741-980305-01-2025 History of Present illness Narrative* Angus Darnell, - 10/29/2024 2:30 PM EDT @NIESHA@ Rosalio Nobles Antoine is a 69 y.o. male who presents for Post-op of the Right Knee (R TKA 09/09/24 [facility] [place] HPI: History of Present [...] SURGERY Left TOTAL KNEE ARTHROPLASTY Right 09/09/2024 [facility] [place] JAB REVIEW OF SYMPTOMS: [...] unchanged in position and alignment. No signs ofprosthetic wear or loosening. No periprosthetic fractures. ASSESSMENT AND PLAN: I reviewed the history, physical exam, diagnostic studies, and diagnosis with the patient. Assessment & Plan 1. Postoperative status following right total knee arthroplasty: Satisfactory progress noted with minimal swelling and a well-healed incision. Continue icing the knee and apply scar lotion, allowing the scab to fall off naturally. Antibiotics should be taken priorto any dental procedures. If the condition deteriorates before 03/2025, inform the clinic. 2. DJD left knee Zilretta injection administered on 09/24/2024 has provided relief. If the pain recurs, another injection can be considered. Follow-up Follow up in 03/2025 with an x-ray. Diagnoses and all orders for this visit: Status post total knee replacement, right - XR knee 3 views right Angus Darnell D.O. Attestation This note was created using voice recognition through [employer]. documented in this encounterMercy Hospital WashingtonLmbrpaiybd13-82-0329 History of Present illness Narrative* Cassia Munoz, PT - 10/15/2024 9:30 AM EDT Images from the original note were not [...] has not used walker in a couple weeks.Still icing and elevating at home. Pt states stopped taking percocet last week and now taking something less strong. Pt states he was having some issues with low back and left knee pain. Was given injection in left knee at last follow up with . Pt states just started going up to 2nd floor to bed;was staying on first. Precautions: [place] Subjective: No complaints following last session. Knee [...] gait ( bike 5 minutes unsupervised to improveknee mobility) Therapeutic Activity: Exercises to improve dynamic [...] right knee extension. Able to achieve 128 degreesof right knee flexion this date with strap stretch in supine. Outcome Measure: Lower Extremity Functional Scale (LEFS): 24/80 Rehab Diagnosis: right knee pain and weakness, decrease ROM and mobility, difficulty walking Short Term Goal: To be met in 2 weeks Goal 1: Pt to be instructed in home exercise program. Pullboat Engineer Goals: To be met in 10 weeks [...] Please sign below. Date: documented in this encounterMercy Hospital WashingtonZizsgguhaf96-27-8939 History of Present illness Narrative* Cassia Munoz, PT - 10/09/2024 9:00 AM EDT Images from the original note were not included. Physical Therapy Treatment Visit Patient Name: Rosalio Jarquin Today's Date: 10/09/2024 Encounter Diagnoses Name Primary? Status post total knee replacement, right Yes Localized osteoarthritis of right knee Visit number: 2 Timed Code Treatment Minutes: 44 minutes Total Treatment Time: 54 minutes Time In: 0900 Time Out: 09 History: Pt underwent surgery for right TKA on 09/09/24. Has been getting 4 weeks of home health therapy. Pt states he has only been using cane as needed. States has not used walker in a couple weeks.Still icing and elevating at home. Pt states stopped taking percocet last week and now taking something less strong. Pt states he was having some issues with low back and left knee pain. Was given injection in left knee at last follow up with . Pt states just started going up to 2nd floor to bed;was staying on first. Precautions: [place] Subjective: Right knee is stiff this morning. Doing exercises at home that he was given last session. Pain: 2/10 Objective: PT Evaluation (10/06/2024) RIGHT KNEE AROM: [...] minutes) Strength, Endurance, Flexibility, ROM, HEP, Neural Mobilization,Power, and Core Stability as needed. Pt performed and instructed in home program this date; writteninstructions and pictures issued with good pt understanding. [...] needed. CP to right knee following treatment X10 minutes. Assessment: Pt has completed 2 PT sessions for right TKA. Added step ups this date with good lissette. Progressed standing exercises with mild complaints of right knee soreness and low back pain. Pt able to achieve 120 degrees of right knee flexion with supine strap stretch this date. Will continue to progress as pt tolerates. Outcome Measure: Lower Extremity Functional Scale (LEFS): 2480 Rehab Diagnosis: right knee pain and weakness, decrease ROM and mobility, difficulty walking Short Term Goal: To be met in 2 weeks Goal 1: Pt to be instructed in home exercise program. Skilled Nursing Goals: To be met in 10 weeks [...] Please sign below. Date: documented in this encounterMercy Hospital Wa[id number] History of Present illness Narrative* Inés Gregorio, ARRT - 09/24/2024 9:00 AM EDTAssociated Order(s): L Inj/Asp: L knee Post-Procedure Diagnose(s): Acute pain of left knee L Inj/Asp: L knee on 09/24/2024 9:40 AM Indications: pain Details: 22 G needle, lateral approach Medications: 32 mg triamcinolone acetonide 32 MG Consent was given by the patient. * Angus Darnell, DO - 09/24/2024 9:00 AM EDT Images from the original note were not included. @NIESHA@ Rosalio Jarquin is a 69 y.o. male who presents for Post-op of the Right Knee (R TKA 09/09/24 [facility] HPI: History of Present [...] has previously received [facility]. His physical therapy is progressing well, with a reported knee flexion of 100 degrees achieved through assisted manipulation and 90 degrees independently. He expresses interest in transitioning to outpatient therapy at [facility]. SUBJECTIVE: MEDICATIONS: Current Outpatient Medications Medication Instructions [...] SURGERY Left TOTAL KNEE ARTHROPLASTY Right 09/09/2024 [facility] JAB REVIEW OF SYMPTOMS: [...] unchanged in position and alignment. No signs ofprosthetic wear or loosening. No periprosthetic fractures. Arthritic [...] area. A referral for physical therapy at [facility] has been initiated. An x-ray examination will [...] 1/2 inch needle. The patient tolerated this well.A Band-Aid was applied. The patient was instructed [...] knee - L Inj/Asp: L knee Angus Darnell D.O. Attestation This note was created using voice recognition through Exterity artificial [employer]. documented in this encounterMercy Hospital WashingtonFtqgcoaezw24-63-8397 NoteProgress Note-Physician Patient: ROSALIO JARQUIN Age: 69 years Sex: [...] list: All Problems Smoker / SNOMED CT 081693832 / Confirmed Added secondary to documentation in Social History. LINETTE on CPAP / SNOMED CT 998371147 / Confirmed Hypertension / SNOMED CT 0519295979 / Confirmed Depression / SNOMED CT 66770566 / Confirmed Anxiety / SNOMED CT 10144370 / Confirmed Histories Procedure history: broke leg. Hernia repair (12643648). Social History Social & Psychosocial Habits Alcohol [...] adequate air exchange. Cardiovascular: Regular rhythm. Plan [place] [employer] Anesthesiologists (ASA) physical status classification: Class III. Anesthetic Preoperative Plan: Anesthesia General. Regional Spinal, and adductor.[facility] CenterComment on above:Result Comment: Electronically Signed By: Adrián Sheikh Jr, DO\.br\Date and Time Signed: 09/13/24 10:36 [id number] NoteProgress Note-Physician Patient: ROSALIO JARQUIN Age: 69 years Sex: [...] Discharge when meets criteria ( To home ).[facility] CenterComment on above:Result Comment: Electronically Signed By: Adrián Sheikh Jr, DO\.br\Date and Time Signed: 09/13/24 10:35 EDT 09-09-2024 Hospital Discharge instructions Patient Education 09/09/2024 11:34:37 Knee Cryocuff Patient Instructions - FT (CUSTOM) 09/09/2024 11:34:35 Post Op Patient Instructions - FT (Custom) (CUSTOM) 09/09/2024 11:33:45 Monique Darnell - Total Knee Arthroplasty (Custom) [place], [place] [facility] DISCHARGE INSTRUCTIONS: TOTAL KNEE [...] continue to use the pain medication every fourhours as needed. Any narcotic pain medication can [...] will continue at home, possibly with the assistant film editor of Home Health Physical Therapy or in the hospital as an outpatient. When you have become independent withthe physical therapy program, this will then be [...] progress. 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 It is therefore advised not to drive until after yourfirst office visit following surgery. FOLLOW-UP OFFICE VISIT: Angus Darnell, DO [facility] [address] [place] [address] Reviewed: 11-20 Follow Up Care 08/06/2024 10:55:12 With:Angus Darnell Address: [address] [place] [address] Business (1) When:09/24/2024 09:00:00 Comments:Appointment has already been scheduled. Call for any problems. [facility] 03-12-2025 NotePatient Education - Text [place], [place] [facility] DISCHARGE INSTRUCTIONS: TOTAL KNEE [...] continue to use the pain medication every fourhours as needed. Any narcotic pain medication can [...] will continue at home, possibly with the assistant film editor of Home Health Physical Therapy or in the hospital as an outpatient. When you have become independent withthe physical therapy program, this will then be [...] progress. 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 It is therefore advised not to drive until after yourfirst office visit following surgery. FOLLOW-UP OFFICE VISIT: Angus Darnell DO [facility] [address] [place], [place] [id number] Reviewed: 11-20[facility]02-06-2025 History of Present illness Narrative* Angus Darnell DO - 08/06/2024 10:30 AM EST Images from the original note were not included. @NIESHA@ Rosalio Jarquin is a 69 y.o. male who presents for Pain of the Left Knee HPI: History of Present Illness The patient is a 69-year-old male who presents as a new patient to my practice today for his left knee. He was previously under the care of our physician assistant film editor, Barbara Bland. He has tried meloxicam, Robaxin, [...] knee. His right knee has caused him tofall twice, leading to the injury to the [...] with a right total knee arthroplasty with Gavin robotic arm assistance. The intelworks platform will be utilized. Surgery will be [...] note was created using voice recognition through [employer]. documented [facility] encounter[facility] [id number] History of Present illness Narrative* Rowan Bojorquez MA - 05/25/2024 3:45 PM ESTAssociated Order(s): L Inj/Asp: L knee Post-Procedure Diagnose(s): [...] time out was called to verify the correctpatient, procedure, equipment, operator command support systems and site/side marked as required. Patient was prepped and draped in the usual sterile fashion. * TE Vera - 05/25/2024 3:45 PM EST GENERAL HISTORY AND PHYSICAL: NAME: Rosalio Jarquin : 1955 HISTORY OF PRESENT ILLNESS: Rosalio Jarqiun is an 69 y.o. male is here for orthopedic evaluation here with his for increased pain in his left knee. He was seen in the ER after he had a buckling episode and fell onto his left knee. He has a lot of pain seems to be related to the patellofemoral joint. He has significant lateral subluxation of the right patella with pslq-un-jviy changes and advancing arthritis with no subluxation of the left patellofemoral joint with fairly well-preserved mediolateral compartments seenon x-ray from [place] as well as weight-bearing films here in our office today. He is on meloxicamand recently started taking his old Robaxin prescription. [...] patellar tendon as well as the quad tendonhas moderate joint effusion noted with swelling in [...] to a week. May repeat cortisone 3 timesa year per joint as soon as 4 weeks from today. Ideally every 4 months if necessary. May also consider following up with physician and getting Visco injection whichMay last longer and can be repeatedwith approval through Medicare every 6 months. L 1821 during waking hours to help compress and support the knee. TE Vera documented in this [facility]11-25-2024 Instructions* Patient Instructions* TE Vera - 05/25/2024 3:45 PM EST Cold pack to the knee 20 minutes several times a day and before bed will be helpful. Continue only meloxicam do not take other anti-inflammatory while your on that medication. We will expect a cortisone to start helping reduce swelling in the next 48 hours up to a week. May repeat cortisone 3 timesa year per joint as soon as 4 weeks from today. Ideally every 4 months if necessary. May also consider following up with physician and getting Visco injection whichMay last longer and can be repeatedwith approval through Medicare every 6 months. L 1821 during waking hours to help compress and support the knee. documented in this [facility]12-07-2023 Evaluation note* Encounter Date Diagnosis Assessment Notes Treatment Notes Treatment Clinical Notes May, Removal of michelle (ICD-10 - Z48 .02) Pt tolerated staple removal well. Pt denies LOC or fall without reason. He slipped in slippers on an icy patio with dog outside. Steristrips applied.. Keep area clean. [facility] Other 10-20-2023 Evaluation note* Encounter Date Diagnosis [...] reviewed and amended by provider signed below. Mar,Essential (primary) hypertension (ICD-10 - I10)Elevated today. Will increase dose of losartan. Continue active lifestyle Mar,Screening PSA (prostate specific antigen) (ICD-10 - Z12.5) Mar,Fatigue, unspecified type (ICD-10 - R53.83)Notes more frequent naps - will assess thyroid w labs. Mar,Nicotine dependence, cigarettes, uncomplicated (ICD-10 - F17.210) advised to quit smoking. Agrees to LDCT at [facility] Other 07-09-2022 Evaluation + Plan noteExtracted from:Title: ED NoteAuthor:Disha WHITEHEAD, Jose RaulenDate:01/06/22 Otitis externa (H60.90: Unsp ecified otitis externa, unspecified ear) Orders: ciprofloxacin-dexamethasone otic, 4 drop(s), Ear-Right, BID for 7 day(s), 10 mL, Refill(s) 0 [facility]07-09-2022 Hospital Discharge instructions Patient Education 01/06/2022 08:25:56 [...] antibiotic even if your condition improves. Take igot-ejx-cxolscg and prescription medicines only as told by [...] 06/17/2006 Document Revised: 11/21/2018 Document Reviewed: 11/21/2018 [employer] Patient Education 2020 [employer]. 01/06/2022 08:25:56 Ear Drops, Adult Ear Drops, [...] 06/11/2002 Document Revised: 05/30/2018 Document Reviewed: 06/20/2017 [employer] Patient Education 2020 [employer]. Follow Up Care 01/06/2022 07:58:43 With:Elizabeth Veliz Address: [address] [place] [address], [address] [place] [address] Business (1) When:01/09/2022 08:19:10 With:ELAINE MEJIA Address: [address] [place], [place] [id number]- Business (1) When:01/09/2022 08:19:07 [facility]04-06-2022 Hospital Discharge instructions Follow Up Care 10/04/2021 10:34:18 With:Kirk MOREAU, Beth Ramirez, MANAV, LUZ MARIA Address: [address] [place] [address] [place] [address] When:1 year [facility] No data available for this section [facility] Future Appointments Appointment Date:09/09/2024 07:30:00 AM Scheduled Provider: Location:[facility] Appointment Type:Surgery FT Diagnostic Tests Pending * Urine Culture 08/24/24 [facility] Evaluation noteNo InformationNoFirstString [email or web address] Other Evaluation note* Diagnosis Onset Date Resolution Status Lumbar pain with radiation down both leg s [facility] Work Phone: Evaluation noteNo assessment information available [facility] Work Phone: Evaluation note* Diagnosis Localized osteoarthritis of left knee- Primary Acute pain of left knee Osteoarthritis of patellofemoral joints of both knees [facility] Diagnosis Osteoarthritis of patellofemoral joints of both knees [facility]* Diagnosis Onset Date Resolution Status Admit Date Lung nodule seen on imaging study [facility] 2024 9:35am [facility] Work Phone: Evaluation note* Diagnosis Status post [...] or radiculitis, unspecified documented in this encounter [facility] Work Phone: Evaluation note* Diagnosis Lumbar pain Lumbago documented in this encounter [facility] Work Phone: Evaluation note* Diagnosis Onset Date Resolution Status Admit Date Depression, controlled acuteJune 2024 9:32amEssential (primary) hypertensionacuteJune 2024 9:32amLumbar pain with radiation down both legsacuteJune 2024 9:32amLung nodule seen on imaging studyacuteJune 2024 9:32amMedicare annual wellness visit, subsequentacuteJune 2024 9:32amObstructive sleep apneaacuteJune 2024 9:32am [facility] Work Phone: Evaluation note* Diagnosis Status post total knee replacement, right- Primary documented in this encounter [facility]* Diagnosis Age-related nuclear cataract of both eyes- Primary Brow ptosis Dermatochalasis of upper and lower eyelids of both eyes documented in this encounter [facility]* Diagnosis Age-related nuclear cataract of both eyes- Primary documented in this encounter [facility] HealthcareHistory general Narrative - Reported* Type Description Date Medical History Depression, controlled Medical HistoryGeneralized osteoarthrosisMedical HistoryTransient insomnia Medical HistoryObstructive sleep apneaSurgical HistoryHernia RepairSurgical HistoryLeft ankle surgery - with plates and [id number] HistorySEE SURGICAL [facility] Other Hospital Discharge instructions No data available for this section [facility] No data available for this section [facility] for referral (narrative)No reason for referral information availableAdena Health System Work Phone: Reason for visit Narrative* Consultation (Routine) - AuthorizedSpecialtyDiagnoses / ProceduresReferred By ContactReferred To ContactPhysical Therapy Diagnoses Status post total knee replacement, right Procedures OR OFFICE/OUTPATIENT NEW HIGH MDM 60 MINUTES Angus Darnell, [address] [place] [address] Phone: tel: fax: Cassia Munoz PT Referral IDStatusReasonStart DateExpiration DateVisits RequestedVisits [id number] Consult and Treat / [facility] for visit Narrative* Consultation (Routine) - Authorized SpecialtyDiagnoses / ProceduresReferred By ContactReferred To ContactPhysical Therapy Diagnoses Status post total knee replacement, right Procedures OR OFFICE/OUTPATIENT NEW HIGH MDM 60 MINUTES Angus Darnell, DO [address] [place] [address] Phone: tel: fax: Cassia Munoz PT Referral IDStatusReasonStart DateExpiration DateVisits RequestedVisits [id number] Consult and Treat / [facility] for visit Narrative* Imaging (Routine) - Authorized SpecialtyDiagnoses / ProceduresReferred By ContactReferred To ContactRadiology Diagnoses Lumbar pain Procedures XR lumbar spine 4+ views w flexion extension Jaymie Boston MD [address] [facility], [address] [place] [address] Phone: tel: fax: Referral IDStatusReasonStart DateExpiration DateVisits RequestedVisits [id number] Perform Procedure [facility] Work Phone: Discharge Instructions * Instructions* George Alcala, - 08/01/2020 Thank you for visiting [facility]. You need to call Elaine Mejia MD to make an appointment as directed for follow up. Should you have any questions regarding your care or further treatment, please call [facility] Emergency Department at [phone]. Take any medications as prescribed, if given [...] Everywhere. * Head Injury: Closed: General Info (Czech) documented in this encounter Assessments Diagnosis Closed head injury, initial encounter- Primary Summary Purpose Family History No Family History Records Found Relationship Condition Age at Onset Recorded Date/T estevan father Family history of other condition Unknown Malignant neoplasmUnknownDeceasedUnknownNot SpecifiedMalignant neoplasmUnknown Family history of colon cancerUnknown Relationship Condition Age at Onset Recorded Date/T estevan father Family history of other condition Unknown Malignant neoplasmUnknownDeceasedUnknownmotherMalignant neoplasmUnknownFamily history of colon cancerUnknown Advance Directives No Advanced Directives Records Found [...] on imaging study September 01, 2024 9:35am Chief Complaint Admit Date Wellness December 25, 2024 9:32 am Reason for Visit Admit Date Depression, controlled December 25, 2024 9 :32am Essential (primary) hypertension December 252024 9:32am Lumbar pain with radiation down both leg s December 25, 2024 9:32am Lung nodule seen on imaging study November 302024 9:32am Medicare annual wellness visit, subseque nt December 25, 2024 9:32am Obstructive sleep apnea December 25, 2024 9:32am Additional Source Comments Reason for Visit (unrecogniz ed section and content) ReasonCommentsFallslip and fall on ice, hit left side of head on door. reports loc. not long and elbow painReasonCommentsPainReasonCommentsPainReasonComments Post-opR TKA 09/09/24 FTReasonCommentsPost-opR TKA 09/09/24 FTReasonComments New Patient VisitInto his legsX-rays todayMRI [facility] CommentsFollow-upR TKA 09/09/24 FTReasonCommentsEye ExamBlurred VisionReason Onset DateCommentsMed Ekrric4704/22/2025 Ordered Prescriptions (unrec ognized section and content) PrescriptionSigDispensedRefillsStart DateEnd Date ibuprofen (IBU) 600 MG tablet Take 1 tablet by mouth every 6 hours as needed for Pain 120 tablet acetaminophen (TYLENOL) 325 MG tablet Take 2 tablets by mouth every 6 hours as needed for Pain 120 tablet (unrecognized sect ion and content) No Status [...] section and content) DATE CREATED AUTHOR 08/02/2020 [facility] DATE CREATED AUTHOR AUTHOR'S ORGANIZ ATION 01/17/2022 [facility] DATE CREATED AUTHOR AUTHOR'S ORGANIZ ATION 08/25/2024 [facility] DATE CREATED AUTHOR AUTHOR'S ORGANIZ ATION 08/26/2024 [facility] DATE CREATED AUTHOR AUTHOR'S ORGANIZ ATION 09/11/2024 [facility] DATE CREATED AUTHOR AUTHOR'S ORGANIZ ATION 09/14/2024 [facility] DATE CREATED AUTHOR AUTHOR'S ORGANIZ ATION 09/15/2024 [facility] DATE CREATED AUTHOR AUTHOR'S ORGANIZ ATION 09/20/2024 [facility] DATE CREATED AUTHOR AUTHOR'S ORGANIZ ATION 12/29/2024 [facility] DATE CREATED AUTHOR AUTHOR'S ORGANIZ ATION 04/23/2025 [facility] EPIC Care Team (unrecognized sect ion and content) Team Status: Active Member Role Status Dates Elaine Mejia MD Primary Care Provider Active Team Status: Active Member Role Status Dates Elaine Mejia MD Primary Care Provider Active Start: November 05, 2024 Daryl Limon [facility] , DOAttending ProviderActiveStart: November 05, 2024 Team Status: Inactive Member Role Status Dates Elaine Mejia MD Primary Care Provider Active Start: December 25, 2024 End: December 25, 2024Elaine Mejia , MDAttending ProviderActiveStart: December 25, 2024 End: December 25, 2024 Team Status: Inactive Member Role Status Dates Elaine Mejia MD Primary Care Provide r, Attending Provider Active Start: September 19, 2023 End: September 19, 2023 Team Status: Inactive Member Role Status Dates Elaine Mejia MD Primary Care Provide r, Attending Provider Active Start: January 30, 2024 End: January 30, 2024Team MemberRelationshipSpecialtyStart DateEnd Date Elaine Mejia MD [address] [id number] PCP - [facility] Medicine08/06/24Team MemberRelationshipSpecialtyStart DateEnd Date Elaine Mejia MD [address] [phone] [facility]/24 Team Status: Inactive Member Role Status Dates Elaine Mejia MD Primary Care Provide r, Attending Provider Active Start: September 01, 2024 End: September 01, 2024Team MemberRelationshipSpecialtyStart DateEnd Date Elaine Mejia MD [address] [id number] PCP - [facility] Medicine08/06/24Team MemberRelationshipSpecialtyStart DateEnd Date Elaine Mejia MD [address] [place] [address] PCP - GeneralFamily Medicine2Team MemberRelationshipSpecialtyStart DateEnd Date Elaine Mejia MD [address] [facility] [place] [place] [address] PCP - GeneralFamily Medicine08/06/24Team MemberRelationshipSpecialtyStart DateEnd Date Elaine Mejia MD [address] [facility] [place] [address] PCP - GeneralFamily Medicine08/06/24Team MemberRelationshipSpecialtyStart DateEnd Date Elaine Mejia MD PCP - GeneralFamily Medicine2Team MemberRelationshipSpecialtyStart DateEnd Date Elaine Mejia MD PCP - GeneralFamily Medicine08/06/24Team MemberRelationshipSpecialtyStart DateEnd Date Elaine Mejia MD PCP - GeneralFamily Medicine08/06/24Team MemberRelationshipSpecialtyStart DateEnd Date Elaine Mejia MD PCP - GeneralFamily Medicine2Team MemberRelationshipSpecialtyStart DateEnd Date Elaine Mejia MD PCP - GeneralFamily Medicine2Team MemberRelationshipSpecialtyStart DateEnd Date Elaine Mejia MD PCP - GeneralFamily Medicine08/06/24Team MemberRelationshipSpecialtyStart DateEnd Date Elaine Mejia MD PCP - GeneralFamily Medicine08/06/24Team MemberRelationshipSpecialtyStart DateEnd Date Elaine Mejia MD PCP - GeneralFamily Medicine08/06/24Team MemberRelationshipSpecialtyStart DateEnd Date Elaine Mejia MD PCP - GeneralFamily Medicine08/06/24Team MemberRelationshipSpecialtyStart DateEnd Date Elaine Mejia MD PCP - GeneralFamily Medicine08/06/24Team MemberRelationshipSpecialtyStart DateEnd Date Elaine Mejia MD PCP - GeneralFamily Medicine08/06/24Team MemberRelationshipSpecialtyStart DateEnd Date Elaine Mejia MD PCP - GeneralFamily Medicine08/06/24Team MemberRelationshipSpecialtyStart DateEnd Date Generic Provider, No Assigned P[place], [place] [address] PCP - GeneralGeneral Practice11/25/24Team MemberRelationshipSpecialtyStart Date End Date Generic Provider, No Assigned P[place], [place] [address] PCP - GeneralGeneral Practice11/25/24Team MemberRelationshipSpecialtyStart Date End Date Elaine Mejia MD [facility] [place] [phone] PCP - GeneralFamily Medicine03/11/25Te MemberRelationshipSpecialtyStart DateEnd Date Elaine Mejia MD [address] [facility] [place] [phone] PCP - [facility]03/11/25Te MemberRelationshipSpecialtyFulton DateEnd Date Elaine Mejia MD [address] [facility] [place] [address] [facility] - [facility]03/11/25Te MemberRelationshipSpecialtyStrugby DateEnd Date Elaine Mejia MD [address] [facility] [place] [address] [facility] - [facility]03/11/25 Goals (unrecognized section and content) Goals may [...] BE BASED ON THE PRIMARY CLINICAL RECORDS. [facility]. provides no warranty or guarantee of the accuracy or completeness of information in this document.
--- NOTE | 2025-06-11 07:57 | CT_ITS ---
The [address] [address] Patient Name: ROSALIO JARQUIN MRN: [id number] date: 1955 Sex: M Assigned Patient Location: CT Current Patient Location: CT Accession/Order Number: [id number] Exam Date: 06/11/2025 08:00 Report Date: 06/11/2025 10:53 At the request of: TARA SANTACRUZ DO Procedure: CT chest wo con CT CHEST WITHOUT CONTRAST COMPARISON: 11/03/2024 CLINICAL DATA: Follow-up pulmonary nodularity. Long time smoker. Spiral images were obtained through the chest without contrast. Images were reviewed using both narrow and wide window settings. This CT exam was performed using one or more following dose reduction techniques: Automated exposure control, adjustment of the mA and/or kV according to patient size, or use of iterative reconstruction technique. The heart is top normal in size. No pericardial effusion is seen. There is no aortic aneurysm. Minor plaque is present at the aortic arch and descending aorta. There are few similar tiny noncalcified lymph nodes. There are also calcified precarinal and right hilar nodes. There is mild upper thoracic dextroscoliotic curvature. Mild degenerative changes are seen at the thoracic and lower imaged cervical spine. Scarring is again visualized at both lung apices. There is obstructive lung disease with airspace lucencies. There is mild thickening of the fissures. There is minimal basilar atelectasis or scarring. No developing consolidation, pleural effusion or pneumothorax is noted. There are similar tiny pulmonary nodules including intrapulmonary lymph nodes. There is a calcified right upper lobe granuloma. No new nodularity is noted. Limited cuts through the upper abdomen show no contributory findings. CT/CT chest wo con IMPRESSION: OBSTRUCTIVE LUNG DISEASE WITH SCARRING/ATELECTASIS AND TINY STABLE NODULES. NO ACUTE FINDINGS. Impression dictated by: Maranda Vicente M.D. 06/11/2025 10:53 AM Dictation Location: [facility]ITALDamage Hounds Electronically authenticated by: [id number] Y Date: 06/11/2025 10:53
== END 2025-06-11 07:51 | disposition home or self-care (01) ==
LOC: CT 07:52
PROVIDERS: PCP Family Medicine; Visit Provider Internal Medicine
DX: R91.8 Other nonspecific abnormal finding of lung field (principal); J44.9 Chronic obstructive pulmonary disease, unspecified
CPT/HCPCS: 71250